=== PATIENT | male | born 1965 | race Caucasian/White ===

== ENCOUNTER 2022-09-11 14:52 | Inpatient (IN) | payer BC, SELFPAY ==
--- NOTE | ~2022-09-11 | CT_ITS ---
EXAMINATION: CT ABDOMEN AND PELVIS WITHOUT CONTRAST CLINICAL INFORMATION: Necrotizing fasciitis, pelvic pain. COMPARISON: None available. TECHNIQUE: Multidetector volumetric imaging was performed from the superior aspect of the liver through the pubic symphysis. Sagittal and coronal reformatted images were obtained on the technologist's workstation. This CT examination was performed using dose optimization techniques as appropriate, variously including the following: *Automated exposure control *Adjustment of mA and/or kV according to patient size (this includes techniques or standardized protocols for targeted exams where dose is matched to indication/reason for exam; i.e. extremities or head) *Use of iterative reconstruction technique DLP: 705 mGy-cm FINDINGS: LUNG BASES: The lung bases are clear. Heart size is normal. LIVER, GALLBLADDER, AND BILIARY TREE: The liver is normal in size, shape, and diffusely hypoattenuated there is 1.5 cm hypodense lesion in segment 4A whether this represent is normal hepatic parenchyma or a lesion is questioned. No intrahepatic biliary ductal dilatation is present. The gallbladder has been surgically removed. PANCREAS: Unremarkable. SPLEEN: Unremarkable. ADRENAL GLANDS: Unremarkable. KIDNEYS AND URETERS: The kidneys are normal in size, shape, and attenuation. There is bilateral prominent kidney pelvis and proximal ureters with no obstructive etiology seen. No perinephric stranding seen. There is no radiopaque calculi. BLADDER: Unremarkable. GASTROINTESTINAL TRACT: There is scattered stool and gas seen throughout the colon without significant distention. Postsurgical changes along the right lower quadrant with patent lumen seen likely involving enterocolic anastomosis. The small bowel loops are normal caliber. Appendix is not seen.. ABDOMINAL WALL: There are two supraumbilical hernias containing fat. A small umbilical hernia containing fat is seen as well. LYMPH NODES: Normal. VASCULAR: Unremarkable. PELVIC VISCERA: The prostate gland is normal. There is moderate bilateral hydroceles. There is mild cellulitis involving bilateral medial thigh and posterior buttocks. No gross ulcerations or abscess seen.. OSSEOUS STRUCTURES: There are compression deformities L2 T11 and T12 vertebra likely old. There are ventral bridging osteophytes lower dorsal spine. CT/CT abdomen pelvis wo IV con IMPRESSION: 1. Moderate bilateral hydroceles. There is mild cellulitis involving bilateral medial thigh and posterior buttocks. No gross ulcerations or abscess seen. 2. Mild constipation without obstruction. Postsurgical changes right lower quadrant with patent lumen likely enterocolic anastomosis. 3. Bilateral prominent kidney pelvis and proximal ureters with no obstructive etiology seen. 4. There are two supraumbilical hernias containing fat and a small umbilical hernia containing fat. 5. Hepatic steatosis and cholecystectomy. Fleischner guidelines were followed.
[2022-09-11 14:59] VITALS: BP 94/51; PULSE 80; RESP 20; TEMP 36.8; O2SAT 98; BMI 23.1
--- NOTE | 2022-09-11 15:00 | ED.GENADULT ---
HPI - General Adult General Chief complaint: Skin/Abscess/Foreign Body Stated complaint: ULCER Time Seen by Provider: 09/11/22 16:07 Source: patient and family Mode of arrival: ambulatory Limitations: no limitations History of Present Illness HPI narrative: 57-year-old male came in for evaluation painful ulceration the top of his penis, patient only past medical history significant for alcohol abuse patient otherwise declined any other medical problem, sexually not active, declined any unprotected sex at least in the last couple months, patient declined any risk for STD. Related Data Home Medications Medication Instructions Recorded Confirmed cyclobenzaprine 10 mg tablet 10 mg PO BEDTIME 09/11/22 09/11/22 ibuprofen 800 mg tablet 800 mg PO TID 09/11/22 09/11/22 lidocaine 5 % topical patch 1 patch topical DAILY 09/11/22 09/11/22 Allergies Allergy/AdvReac Type Severity Reaction Status Date / Time No Known Allergies Allergy Verified 09/11/22 16:54 Review of Systems Review of Systems: All other systems are reviewed and are negative Constitutional: Reports as per HPI and Reports no additional constitutional complaints Eyes: Reports as per HPI and Reports no additional eye complaints Reports system reviewed and no additional complaints, except as documented Cardiovascular: Reports as per HPI and Reports no additional cardiovascular complaints Respiratory: Reports as per HPI and Reports no additional respiratory complaints Gastrointestinal: Reports as per HPI and Reports no additional gastrointestinal complaints Genitourinary: Reports no additional female genitourinary complaints Musculoskeletal: Reports no additional musculoskeletal complaints Skin/Breast: Reports system reviewed and no additional complaints, except as docu Psychiatric: Reports no additional psychiatric complaints Endocrine: Reports no additional endocrine complaints Hematologic/Lymphatic: Reports no additional hematologic/lymphatic complaints Allergic/Immunologic: Reports no additional allergic/immunologic complaints Reports system reviewed and no additional complaints, except as documented and Reports Abnormal speech present [facility] Past Medical History Medical History Alcohol dependence Chronic kidney disease Surgical History (Updated 09/11/22 @ 20:39 by JIGAR De La Torre) S/P bariatric surgery Social History Social History Household Members: Children Household Members Other:: son Housing: Apartment Do you presently have visiting nurse or other home services: No Alcohol intake: current Alcohol intake frequency: 3 or more drinks per day Alcohol type: hard liquor Patient Tobacco Use Status: Current everyday Tobacco user Tobacco use type: Cigarette Cigarettes Per Day: 2 Substance Use Type: Crack/Cocaine Physical Exam ED Vital Signs: Vital Signs - 24 hr 09/11/22 14:59 09/11/22 17:53 09/11/22 20:03 Temperature 98.3 F 97.5 F 97.9 F Pulse Rate 80 62 73 Respiratory Rate 20 16 16 Blood Pressure 94/51 L 122/72 117/72 Pulse Oximetry 98 99 96 Oxygen Delivery Method Room Air Room Air Room Air BMI result Body Mass Index 23.1 Vital signs have been reviewed as appeared to be correct. Blood pressure normal. Heart rate normal. Respiration rate normal. Temperature normal. Oxygen saturation normal. Appearance: Alert. Oriented X3. No acute distress. Head: Normal external exam. Normocephalic. Atraumatic. No Farah signs noted. No raccoon eyes noted Eyes: PERRLA. EOMI. Conjunctiva and sclera normal. Eyelids normal. ENT: TM's Normal. Pharynx normal. Uvula midline. Moist mucous membranes. No trismus noted. No drooling noted. No muffled voice noted. Neck: Normal inspection. Neck supple. FROM. No adenopathy. Thyroid Normal. No meningeal signs. No neck mass noted. CVS: Normal heart rate and rhythm. Heart sound normal. No murmurs noted. Pulses normal throughout. Respiratory: No respiratory distress. Painless inspiration. Breath sounds normal. No wheezes/rales/rhonchi noted. Chest nontender. No accessory muscle usage noted or decreased air movement noted. Abdomen: Soft and nontender. Bowel sounds normal in all 4 quadrants. No distention noted. No organomegaly noted. No visible injury noted. Genital exam: 5 x 4 cm area of foul odor ulcerative lesion on the dorsum of the penis, surrounded by area of erythema on the penis, no urethral discharge. Back: No CVA tenderness. Full range of motion noted. Skin: Skin warm and dry. Normal skin color. Normal skin turgor. No rashes/lesions/lacerations noted. Extremities: No lower extremity edema. Extremities exhibit normal range of motion. Extremities nontender. Neuro: Oriented X 3. Cranial nerve exam: II-XII are grossly intact No motor deficit. No sensory deficit. Reflexes normal. Course Course Course Narrative: RME performed by Leila Hernandez PA-C. Patient is a 57 year old assigned male at presenting to the emergency department with an ulcer on his penis. Labs ordered. Patient placed back in the waiting room pending room availability and results. Reevaluation(s) Reevaluation #1: 57-year-old male from [place] here to visit his family came in for concern of ulcerative painful lesion on the penis for about a week, patient claimed that he is not sexually active currently and STD is extremely unlikely, very mild cellulitic change on the penis and bilateral thigh, LRINEC score is 6/CT showing no free air, making necrotizing fasciitis is likely I discussed the case with Dr. Awan who has things that necrotizing fasciitis is not likely with this patient. Patient received Zosyn, will admit the patient get inpatient General surgery/urology consultation Medications Administered Generic Name Dose Route Start Last Admin Trade Name Freq PRN Reason Stop Dose Admin Cyclobenzaprine HCl 10 mg 09/11/22 21:00 09/11/22 21:17 Cyclobenzaprine Hcl 10 Mg Tablet PO 10 mg BEDTIME VALERIE Administration Cefepime HCl 1 gm/ Sodium 50 mls @ 100 mls/hr 09/11/22 20:30 09/11/22 22:01 Chloride IV Infused Q12H VALERIE Infusion Thiamine HCl 100 mg/ Sodium 101 mls @ 202 mls/hr 09/11/22 20:30 09/11/22 21:29 Chloride IV Infused DAILY VALERIE Infusion Ibuprofen 800 mg 09/11/22 21:00 09/11/22 21:55 Ibuprofen 800 Mg Tablet PO 800 mg TID VALERIE Administration Phenobarbital Sodium 279 mg 09/11/22 23:45 09/11/22 23:51 Phenobarbital Sodium 130 Mg/Ml Vial Im Q3hx2 IM 09/12/22 02:46 279 mg Q3H VALERIE Administration Protocol Sodium Chloride 3 ml 09/12/22 00:00 09/12/22 01:07 0.9 % Sodium Chloride Flush 3 Ml Syringe IVFLUSH Not Given QSHIFT VALERIE Discontinued Medications Generic Name Dose Route Start Last Admin Trade Name Freq PRN Reason Stop Dose Admin Piperacillin Sod/Tazobactam 50 mls @ 100 mls/hr 09/11/22 16:24 09/11/22 17:57 Sod 3.375 gm/ Sodium Chloride IV 09/11/22 16:53 Infused ONCE ONE Infusion Sodium Chloride 2,313.33 mls @ 2,313.33 mls/hr 09/11/22 16:24 09/11/22 18:56 Ns 30 ml/kg infuse over 1 hr (2313.33 ml) 09/11/22 17:23 Infused IV Infusion .Q1H STA Vancomycin HCl 1,500 mg/ 500 mls @ 333.333 mls/hr 09/11/22 20:34 09/11/22 22:01 Sodium Chloride IV 09/11/22 22:03 Not Given ONCE ONE Vancomycin HCl 1,500 mg/ 500 mls @ 333.333 mls/hr 09/11/22 21:45 09/11/22 23:28 Sodium Chloride IV 09/11/22 23:14 Infused ONCE ONE Infusion Morphine Sulfate 2 mg 09/11/22 17:09 09/11/22 17:57 Morphine Sulfate 2 Mg/Ml Cartridge IVPUSH 09/11/22 17:10 2 mg ONCE ONE Administration Protocol Phenobarbital Sodium 373 mg 09/11/22 20:45 09/11/22 20:46 Phenobarbital Sodium 130 Mg/Ml Im Once IM 09/11/22 20:46 373 mg ONCE ONE Administration Protocol Medical Decision Making Differential Diagnosis Differential Diagnoses: The differential diagnosis associated with the presentation includes (STD, syphilis, necrotizing fasciitis, cellulitis, severe sepsis, electrolyte abnormalities, anemia.) Admission/Observation Consideration of admission/observation: Escalation of care including admission/observation considered Consult Healthcare Provider Management of the patient was discussed with: Hospitalist () and Treasury Associate (Dr. Awan) Lab Data MDM Lab Attestation statement: I reviewed the patient's lab results. 09/11/22 15:33 09/11/22 15:34 Labs: Lab Results 09/11/22 09/11/22 09/11/22 Range/Units 15:33 15:33 15:34 WBC 11.0 H (4.8-10.8) X10*3/uL RBC 2.55 L (4.60-5.80) X10*6/uL Hgb 7.7 L (14.0-18.0) g/dl Hct 21.2 L (42.0-52.0) % MCV 83.1 (80.0-98.0) fL MCH 30.2 (27.0-33.0) pg MCHC 36.3 H (31.0-36.0) g/dl RDW 16.1 H (11.0-16.0) % Plt Count 138 L (160-400) X10*3/uL MPV 10.7 (9.4-12.4) fL Immature Gran % (Auto) 0.7 H (0.0-0.4) % Neut % (Auto) 79.8 H (45-73) % Lymph % (Auto) 7.3 L (20-40) % [place] % (Auto) 11.1 H (2-11) % Eos % (Auto) 0.5 (0-4) % Baso % (Auto) 0.6 (0-2) % Lymph # (Auto) 0.8 L (1.2-4.9) X10*3/uL [place] # (Auto) 1.2 (0.1-1.2) X10*3/uL Eos # (Auto) 0.1 (0.0-0.4) X10*3/uL Baso # (Auto) 0.1 (0.0-0.2) X10*3/uL Abs Immat Gran (auto) 0.08 H (0.00-0.03) X10*3/uL Absolute Neuts (auto) 8.8 H (2.0-8.3) x10*3/uL Absolute Nucleated RBC 0.000 (0.0-0.012) X10*3/uL Nucleated RBC % (auto) 0.0 (0.0-0.2) /100WBC ESR 81 H (0-15) MM/HR Sodium 131 L (135-145) mmol/L Potassium 3.5 (3.3-5.1) mmol/L Chloride 103 (96-108) mmol/L Carbon Dioxide 15 L (22-29) mmol/L Anion Gap 17 (12-20) BUN 52 H (9-16) mg/dL Creatinine 3.33 H (0.5-1.4) mg/dL Estim Creat Clear Calc 27.3 Estimated GFR 19 Random Glucose 77 (60-115) mg/dL Lactic Acid (0.5-2.0) mmol/L Calcium 6.9 L (8.4-10.2) mg/dL Magnesium 1.6 (1.6-2.6) mg/dL Iron TIBC % Saturation Unsat Iron Binding Ferritin Total Bilirubin 1.0 (0.0-1.0) mg/dL AST 52 H (5-37) U/L ALT 25 (0-40) U/L Alkaline Phosphatase 217 H (39-117) U/L C-Reactive Protein 12.28 H (< or = 0.50) mg/dL Total Protein 5.8 L (6.5-8.0) g/dL Albumin 2.1 L (3.5-5.0) g/dL Vitamin B12 (200-900) pg/mL Folate (> or = 4.0) ng/mL Urine Color Urine Appearance Urine pH (5.0-9.0) Ur Specific [place] (1.005-1.025) Urine Protein (Neg-Trace) mg/dL Urine Glucose (UA) (Negative) mg/dL Urine Ketones (Negative) mg/dL Urine Blood (Negative) Urine Nitrite (Negative) Ur Leukocyte Esterase (Negative) Urine RBC (0-2) /HPF Urine WBC (0-5) /HPF Ur Squamous Epith Cells (0-2) /HPF Urine Bacteria (None Seen) Hyaline Casts (0-2) /LPF Ur Random Sodium mmol/L Urine Creatinine mg/dL Urine Opiates Screen (Not Detect) Urine Fentanyl Screen (Not Detect) Ur Barbiturates Screen (Not Detect) Ur Phencyclidine Scrn (Not Detect) Ur Amphetamines Screen (Not Detect) U Benzodiazepines Scrn (Not Detect) Urine Cocaine Screen (Not Detect) U Marijuana (THC) Screen (Not Detect) Ethyl Alcohol 87 mg/dL 09/11/22 09/11/22 09/11/22 Range/Units 16:50 18:55 18:55 WBC (4.8-10.8) X10*3/uL RBC (4.60-5.80) X10*6/uL Hgb (14.0-18.0) g/dl Hct (42.0-52.0) % MCV (80.0-98.0) fL MCH (27.0-33.0) pg MCHC (31.0-36.0) g/dl RDW (11.0-16.0) % Plt Count (160-400) X10*3/uL MPV (9.4-12.4) fL Immature Gran % (Auto) (0.0-0.4) % Neut % (Auto) (45-73) % Lymph % (Auto) (20-40) % [place] % (Auto) (2-11) % Eos % (Auto) (0-4) % Baso % (Auto) (0-2) % Lymph # (Auto) (1.2-4.9) X10*3/uL [place] # (Auto) (0.1-1.2) X10*3/uL Eos # (Auto) (0.0-0.4) X10*3/uL Baso # (Auto) (0.0-0.2) X10*3/uL Abs Immat Gran (auto) (0.00-0.03) X10*3/uL Absolute Neuts (auto) (2.0-8.3) x10*3/uL Absolute Nucleated RBC (0.0-0.012) X10*3/uL Nucleated RBC % (auto) (0.0-0.2) /100WBC ESR (0-15) MM/HR Sodium (135-145) mmol/L Potassium (3.3-5.1) mmol/L Chloride (96-108) mmol/L Carbon Dioxide (22-29) mmol/L Anion Gap (12-20) BUN (9-16) mg/dL Creatinine (0.5-1.4) mg/dL Estim Creat Clear Calc Estimated GFR Random Glucose (60-115) mg/dL Lactic Acid 1.8 (0.5-2.0) mmol/L Calcium (8.4-10.2) mg/dL Magnesium (1.6-2.6) mg/dL Iron TIBC % Saturation Unsat Iron Binding Ferritin Total Bilirubin (0.0-1.0) mg/dL AST (5-37) U/L ALT (0-40) U/L Alkaline Phosphatase (39-117) U/L C-Reactive Protein (< or = 0.50) mg/dL Total Protein (6.5-8.0) g/dL Albumin (3.5-5.0) g/dL Vitamin B12 (200-900) pg/mL Folate (> or = 4.0) ng/mL Urine Color Yellow Urine Appearance Clear Urine pH 5.5 (5.0-9.0) Ur Specific [place] <= 1.005 (1.005-1.025) Urine Protein Negative (Neg-Trace) mg/dL Urine Glucose (UA) Negative (Negative) mg/dL Urine Ketones Negative (Negative) mg/dL Urine Blood Small (1+) H (Negative) Urine Nitrite Negative (Negative) Ur Leukocyte Esterase Large (3+) H (Negative) Urine RBC 0-2 (0-2) /HPF Urine WBC 21-50 H (0-5) /HPF Ur Squamous Epith Cells 0-2 (0-2) /HPF Urine Bacteria None Seen (None Seen) Hyaline Casts 0-2 (0-2) /LPF Ur Random Sodium mmol/L Urine Creatinine mg/dL Urine Opiates Screen Not Detected (Not Detect) Urine Fentanyl Screen Not Detected (Not Detect) Ur Barbiturates Screen Not Detected (Not Detect) Ur Phencyclidine Scrn Not Detected (Not Detect) Ur Amphetamines Screen Not Detected (Not Detect) U Benzodiazepines Scrn Not Detected (Not Detect) Urine Cocaine Screen POSITIVE H (Not Detect) U Marijuana (THC) Screen Not Detected (Not Detect) Ethyl Alcohol mg/dL 09/11/22 09/11/22 09/11/22 Range/Units 18:55 19:43 19:43 WBC (4.8-10.8) X10*3/uL RBC (4.60-5.80) X10*6/uL Hgb (14.0-18.0) g/dl Hct (42.0-52.0) % MCV (80.0-98.0) fL MCH (27.0-33.0) pg MCHC (31.0-36.0) g/dl RDW (11.0-16.0) % Plt Count (160-400) X10*3/uL MPV (9.4-12.4) fL Immature Gran % (Auto) (0.0-0.4) % Neut % (Auto) (45-73) % Lymph % (Auto) (20-40) % [place] % (Auto) (2-11) % Eos % (Auto) (0-4) % Baso % (Auto) (0-2) % Lymph # (Auto) (1.2-4.9) X10*3/uL [place] # (Auto) (0.1-1.2) X10*3/uL Eos # (Auto) (0.0-0.4) X10*3/uL Baso # (Auto) (0.0-0.2) X10*3/uL Abs Immat Gran (auto) (0.00-0.03) X10*3/uL Absolute Neuts (auto) (2.0-8.3) x10*3/uL Absolute Nucleated RBC (0.0-0.012) X10*3/uL Nucleated RBC % (auto) (0.0-0.2) /100WBC ESR (0-15) MM/HR Sodium (135-145) mmol/L Potassium (3.3-5.1) mmol/L Chloride (96-108) mmol/L Carbon Dioxide (22-29) mmol/L Anion Gap (12-20) BUN (9-16) mg/dL Creatinine (0.5-1.4) mg/dL Estim Creat Clear Calc Estimated GFR Random Glucose (60-115) mg/dL Lactic Acid (0.5-2.0) mmol/L Calcium (8.4-10.2) mg/dL Magnesium (1.6-2.6) mg/dL Iron Cancelled TIBC Cancelled % Saturation Cancelled Unsat Iron Binding Cancelled Ferritin Cancelled Total Bilirubin (0.0-1.0) mg/dL AST (5-37) U/L ALT (0-40) U/L Alkaline Phosphatase (39-117) U/L C-Reactive Protein 11.13 H (< or = 0.50) mg/dL Total Protein (6.5-8.0) g/dL Albumin (3.5-5.0) g/dL Vitamin B12 > 2000 H (200-900) pg/mL Folate 4.5 (> or = 4.0) ng/mL Urine Color Urine Appearance Urine pH (5.0-9.0) Ur Specific [place] (1.005-1.025) Urine Protein (Neg-Trace) mg/dL Urine Glucose (UA) (Negative) mg/dL Urine Ketones (Negative) mg/dL Urine Blood (Negative) Urine Nitrite (Negative) Ur Leukocyte Esterase (Negative) Urine RBC (0-2) /HPF Urine WBC (0-5) /HPF Ur Squamous Epith Cells (0-2) /HPF Urine Bacteria (None Seen) Hyaline Casts (0-2) /LPF Ur Random Sodium 53.0 mmol/L Urine Creatinine 22.11 mg/dL Urine Opiates Screen (Not Detect) Urine Fentanyl Screen (Not Detect) Ur Barbiturates Screen (Not Detect) Ur Phencyclidine Scrn (Not Detect) Ur Amphetamines Screen (Not Detect) U Benzodiazepines Scrn (Not Detect) Urine Cocaine Screen (Not Detect) U Marijuana (THC) Screen (Not Detect) Ethyl Alcohol mg/dL Independent Interpretation I performed an independent interpretation of an: CT Scan (Abdomen pelvis:1. Moderate bilateral hydroceles. There is mild cellulitis involving bilateral medial thigh and posterior buttocks. No gross ulcerations or abscess seen. 2. Mild constipation without obstruction. 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 Discharge Plan Discharge Clinical Impression: Cellulitis, Acute kidney injury, Urinary tract infection, Penile lesion Patient Disposition: Admitted As Inpatient Interventions: Admission Worksheet (ED) Last Done: 09/11/22 23:04 Discharge Date/Time: 09/11/22 23:27
[2022-09-11 15:38] LABS: MANUAL DIFF FLAG NO
[2022-09-11 15:40] LABS: Basophils Absolute Auto 0.1 X10*3/uL (0.0-0.2); Basophils Percent Auto 0.6 % (0-2); Eosinophils Absolute Auto 0.1 X10*3/uL (0.0-0.4); Eosinophils Percent Auto 0.5 % (0-4); Hematocrit 21.2 % (42.0-52.0); Hemoglobin 7.7 g/dl (14.0-18.0); Imm Gran Abs Auto 0.08 X10*3/uL (0.00-0.03); Imm Gran Pct Auto 0.7 % (0.0-0.4); Lymphocytes Absolute Auto 0.8 X10*3/uL (1.2-4.9); Lymphocytes Percent Auto 7.3 % (20-40); Mean Corpuscular HGB Conc 36.3 g/dl (31.0-36.0); Mean Corpuscular Hemoglobin 30.2 pg (27.0-33.0); Mean Corpuscular Volume 83.1 fL (80.0-98.0); Mean Platelet Volume 10.7 fL (9.4-12.4); Monocytes Absolute Auto 1.2 X10*3/uL (0.1-1.2); Monocytes Percent Auto 11.1 % (2-11); Neutrophils Absolute Auto 8.8 x10*3/uL (2.0-8.3); Neutrophils Percent Auto 79.8 % (45-73); Platelet Count 138 X10*3/uL (160-400); Red Blood Count 2.55 X10*6/uL (4.60-5.80); Red Cell Distribution Width 16.1 % (11.0-16.0)
[2022-09-11 15:58] LABS: Alanine Aminotransferase 25 U/L (0-40); Albumin Level 2.1 g/dL (3.5-5.0); Alkaline Phosphatase 217 U/L (39-117); Anion Gap 17 (12-20); Aspartate Amino Transferase 52 U/L (5-37); Blood Urea Nitrogen 52 mg/dL (9-16); C Reactive Protein 12.28 mg/dL (< or = 0.50); Calcium 6.9 mg/dL (8.4-10.2); Carbon Dioxide 15 mmol/L (22-29); Chloride 103 mmol/L (96-108); Creatinine Clr Calc Pharmacy 27.3; Estimated Glomerular Filt Rate 19; Glucose Random 77 mg/dL (60-115); Magnesium 1.6 mg/dL (1.6-2.6); Potassium 3.5 mmol/L (3.3-5.1); Sodium 131 mmol/L (135-145); Total Protein 5.8 g/dL (6.5-8.0)
[2022-09-11 16:25] LABS: Erythrocyte Sedimentation Rate 81 MM/HR (0-15)
[2022-09-11] MEDS: 0.9 % Sodium Chloride 2,313.33 ML 2313.33 ML IV (16:54)
[2022-09-11] MEDS: Piperacillin Sodium/Tazobactam 3.375 GM in 0.9 % Sodium Chloride 50 ML IV (16:54)
[2022-09-11 17:05] LABS: Lactic Acid 1.8 mmol/L (0.5-2.0)
[2022-09-11 17:27] LABS: Ethanol 87 mg/dL
--- NOTE | 2022-09-11 17:45 | PHA.MEDREC ---
Pharmacy Consult ? Medication Reconciliation Pharmacy has completed the medication reconciliation. spoke with patient's family. They are not sure what he is taking at home everyday since he is only visiting from [place], however the sister mentioned OTC items such as iron, a multivitamin, and omeprazole but she does not know dosages and frequency. I went off of claim history for the prescription medications.
[2022-09-11 17:53] VITALS: BP 122/72; PULSE 62; RESP 16; TEMP 36.4; O2SAT 99
[2022-09-11] MEDS: Morphine Sulfate 2 MG/ML CARTRIDGE IVPUSH (17:57)
[2022-09-11 19:04] LABS: Appearance Urine Clear; Color Urine Yellow; Glucose Urine UA Negative (Negative); Leukocyte Esterase Urine Large (3+) (Negative); Nitrite Urine Negative (Negative); PH 5.5 (5.0-9.0); Specific Gravity - Urine <= 1.005 (1.005-1.025); UMIC TRIGGER UACC YES; Urine Blood Small (1+) (Negative); Urine Ketones Negative (Negative); Urine Protein Negative (Neg-Trace)
--- NOTE | 2022-09-11 19:30 | PM.IMHP ---
History of Present Illness Date of Service: 09/11/22 Attending physician on admission: Johanna Correa Chief Complaint: Penile lesion 57-year-old male with history of alcohol dependence and chronic kidney disease, unspecified stage presents to the ED with his sister for evaluation of a penile lesion that has been present for about 2 weeks. Describes a painful stinging sensation around the site but no other pain. There has also been purulent discharge. No fevers, chills, dysuria, hematuria, abdominal pain, other groin pain. He states his last sexual encounter was 1 month ago and was protected. He denies any recent history of unprotected sex. No discharge from the urethral meatus. On arrival, patient is afebrile, vitals within normal limits. There is a very mild leukocytosis of 11.1 with slight left shift. Platelets 138. Creatinine 3.33, BUN 52. Sodium 131, potassium 3.5, chloride 103, CO2 15, calcium 6.9 (corrected 7.9), AST 52, ALT 25, total bilirubin 1.0, alkaline phosphatase 217. CRP 11.13, ESR 81. Urine tox screen positive for cocaine. Gonorrhea, chlamydia, trip anemia antibodies pending. CT abdomen/pelvis showing moderate bilateral hydroceles. Mild cellulitis involving bilateral medial thigh and posterior buttocks but no gross ulcerations or abscess seen. There is also mild constipation. There is bilateral prominent kidney pelvis and proximal ureters without obstructive etiology. In the ED, has been treated with IV NS, 2 mg morphine, and IV Zosyn. He does drink alcohol on a daily basis throughout the day. Typically between 7-8 shots but sister reports it is more than this. Last drink just before arrival. Review of Systems Review of Systems: General: No fevers, malaise, unintentional weight loss HEENT: No blurred vision, diplopia. No sore throat, nasal congestion, rhinorrhea, sinus pain, ear pain Cardiovascular: No chest pain, palpitations, or leg edema Respiratory: No shortness of breath, wheezing, cough GI: No abdominal pain, nausea, vomiting, diarrhea, constipation, melena, hematochezia : +penile lesion. No dysuria, hematuria, increased urinary frequency, decreased urinary output MSK: No myalgia, back pain Neuro: No headaches, weakness, paresthesias Skin: No rashes or lesions PMFSH Medical History Alcohol dependence Chronic kidney disease Surgical History (Updated 09/11/22 @ 20:39 by JIGAR De La Torre) S/P bariatric surgery Social History Alcohol intake: current Alcohol intake frequency: 3 or more drinks per day Alcohol type: hard liquor Smoked in Last 30 Days: Yes Use of substances other than those prescribed or required for medical reasons: Yes Substance Use Type: Crack/Cocaine Substance Use Frequency: Socially Advance Directives: No Advance Directives Information Provided: Yes Meds Allergies Allergy/AdvReac Type Severity Reaction Status Date / Time No Known Allergies Allergy Verified 09/11/22 16:54 Active Medications: Current Medications Pharmacy Consult (Consult Rx Perform Med Rec) 1 each MISCELLANE ONCE PRN PRN Reason: Consult order Home Medications Medication Instructions Recorded Confirmed Last Taken Type cyclobenzaprine 10 mg tablet 10 mg PO BEDTIME 09/11/22 09/11/22 Unknown History ibuprofen 800 mg tablet 800 mg PO TID 09/11/22 09/11/22 Unknown History lidocaine 5 % topical patch 1 patch topical DAILY 09/11/22 09/11/22 Unknown History Physical Exam Vital Signs and Narrative: Vital Signs: Last Vital Signs Temp 97.5 F 09/11/22 17:53 Pulse 62 09/11/22 17:53 Resp 16 09/11/22 17:53 BP 122/72 09/11/22 17:53 Pulse Ox 99 09/11/22 17:53 O2 Del Method Room Air 09/11/22 17:53 BMI result Body Mass Index 23.1 Constitutional - Awake and weak appearing, pale, No apparent distress Eyes - PERRLA, EOMI Cardiovascular - S1S2, RRR, No edema Respiratory - Normal lung expansion, Normal respiratory effort, No respiratory distress, CTA bilaterally Gastrointestinal - NT / ND; +BS; No rebound or guarding - No CVA tenderness. Extremities - no calf tenderness bilaterally, no swelling Musculoskeletal - Normal inspection, normal ROM Skin - Warm/Dry. 3cm x 2.5cm foul smelling ulceration of the dorsal aspect of the penis with slough Neurological - Alert & oriented x3, CN II-XII in tact, 5/5 strength BUE and BLE Psychological - Appropriate affect Results Labs 09/11/22 15:33 09/11/22 15:34 Labs: Laboratory Results - last 24 hr 09/11/22 09/11/22 09/11/22 15:33 15:33 15:34 MCV 83.1 MCH 30.2 MCHC 36.3 H RDW 16.1 H Plt Count 138 L MPV 10.7 Immature Gran % (Auto) 0.7 H Neut % (Auto) 79.8 H Lymph % (Auto) 7.3 L [place] % (Auto) 11.1 H Eos % (Auto) 0.5 Baso % (Auto) 0.6 Lymph # (Auto) 0.8 L [place] # (Auto) 1.2 Eos # (Auto) 0.1 Baso # (Auto) 0.1 Abs Immat Gran (auto) 0.08 H Absolute Neuts (auto) 8.8 H Absolute Nucleated RBC 0.000 Nucleated RBC % (auto) 0.0 ESR 81 H Anion Gap 17 Estim Creat Clear Calc 27.3 Estimated GFR 19 Random Glucose 77 Lactic Acid Calcium 6.9 L Magnesium 1.6 Total Bilirubin 1.0 AST 52 H ALT 25 Alkaline Phosphatase 217 H C-Reactive Protein 12.28 H Total Protein 5.8 L Albumin 2.1 L Urine Color Urine Appearance Urine pH Ur Specific [place] Urine Protein Urine Glucose (UA) Urine Ketones Urine Blood Urine Nitrite Ur Leukocyte Esterase Ethyl Alcohol 87 09/11/22 09/11/22 16:50 18:55 MCV MCH MCHC RDW Plt Count MPV Immature Gran % (Auto) Neut % (Auto) Lymph % (Auto) [place] % (Auto) Eos % (Auto) Baso % (Auto) Lymph # (Auto) [place] # (Auto) Eos # (Auto) Baso # (Auto) Abs Immat Gran (auto) Absolute Neuts (auto) Absolute Nucleated RBC Nucleated RBC % (auto) ESR Anion Gap Estim Creat Clear Calc Estimated GFR Random Glucose Lactic Acid 1.8 Calcium Magnesium Total Bilirubin AST ALT Alkaline Phosphatase C-Reactive Protein Total Protein Albumin Urine Color Yellow Urine Appearance Clear Urine pH 5.5 Ur Specific [place] <= 1.005 Urine Protein Negative Urine Glucose (UA) Negative Urine Ketones Negative Urine Blood Small (1+) H Urine Nitrite Negative Ur Leukocyte Esterase Large (3+) H Ethyl Alcohol Imaging Radiologist's Impressions: Impressions Abdomen/Pelvis CT 09/11/22 16:45 IMPRESSION: 1. Moderate bilateral hydroceles. There is mild cellulitis involving bilateral medial thigh and posterior buttocks. No gross ulcerations or abscess seen. 2. Mild constipation without obstruction. Postsurgical changes right lower quadrant with patent lumen likely enterocolic anastomosis. 3. Bilateral prominent kidney pelvis and proximal ureters with no obstructive etiology seen. 4. There are two supraumbilical hernias containing fat and a small umbilical hernia containing fat. 5. Hepatic steatosis and cholecystectomy. Fleischner guidelines were followed. Assessment and Plan (1) Cellulitis: Status: Acute (2) Penile lesion: Status: Acute Plan 57-year-old male with history of alcohol dependence and chronic kidney disease, unspecified stage admitted for necrotic ulceration of penis with cellulitis. #Necrotic stage 2 ulceration of the penis with cellulitis -CRP 12, ESR 81 -Wound culture pending -UA with 3+ leuks, negative bacteria. Pt asymptomatic but UC pending -IV cefepime and vanco for empiric coverage -Appreciate general surgery input -Mild leukocytosis with left shift but VSS. NO sepsis -Follow CBC, cultures #Acute on chronic kidney disease though baseline is unknown -urine studies pending -Received 2300ml IV NS in ED -Follow CBC #Alcohol dependence with acute intoxication at risk for severe wtihdrawal -Phenobarb per protocol -Monitor on CIWA -Addiction medicine consult -IV thiamine and folic acid #Hyponatremia- unspecified chronicity -likely r/t etoh abuse -follow bmp #Normocytic anemia- likely chronic in setting of chronic disease -H/H above transfusion threshold. -Follow H/H closely DVT prophylaxis- SCPs Full code Pt requires inpt stay at least 2 midnights for management of necrotic ulcer of penis with cellulitis. Time Spent With Patient Time: Total time managing care of this patient today ____ minutes. Quality Stroke Does the patient have a stroke diagnosis?: No VTE Prior VTE?: No VTE Risk Level:: Medical - moderate - high VTE Device Contraindication: N/A - Device Ordered VTE Drug Contraindication: Treatment Not Indicated
[2022-09-11 19:31] LABS: Amphetamine Screen Urine Not Detected (Not Detect); Barbiturates, Urine Not Detected (Not Detect); Benzodiazepines Screen Urine Not Detected (Not Detect); Cannabinoid Screen Urine Not Detected (Not Detect); Cocaine Screen Urine POSITIVE (Not Detect); Fentanyl, urine Not Detected (Not Detect); Opiate Screen Urine Not Detected (Not Detect); Phencyclidine Screen Urine Not Detected (Not Detect)
[2022-09-11 19:34] LABS: Bacteria Urine None Seen (None Seen); Hyaline Casts Urine 0-2 /LPF (0-2); RBC Urine 0-2 /HPF (0-2); Squamous Epithelial Cell Urine 0-2 /HPF (0-2); UACC Culture Trigger YES; WBC Urine 21-50 /HPF (0-5)
--- NOTE | 2022-09-11 19:58 | PC.NURSE ---
HOSPITALIST AT BEDSIDE. DISCUSSED HOLDING OFF ON CLEANING PENILE WOUND, AWAITING RECOMMENDATIONS FROM SURGEON. NPO FOR NOW, PT AWARE. STATES PAIN IS CURRENTLY MANAGEABLE.
[2022-09-11 20:03] VITALS: BP 117/72; PULSE 73; RESP 16; TEMP 36.6; O2SAT 96
[2022-09-11 20:05] LABS: C Reactive Protein 11.13 mg/dL (< or = 0.50)
[2022-09-11] MEDS: PHENobarbitaL sodium 130 MG/ML IM ONCE 373 MG IM (20:46)
[2022-09-11] MEDS: Thiamine HCL 100 MG in 0.9 % Sodium Chloride 100 ML 202 MG IV (20:48)
[2022-09-11] MEDS: Cyclobenzaprine HCl 10 MG TABLET PO (21:17)
[2022-09-11] MEDS: cefEPime HCl 1 GM in 0.9 % Sodium Chloride 50 ML IV (21:17)
[2022-09-11] MEDS: vancomycin HCL 1,500 MG in 0.9 % Sodium Chloride 500 ML 333.33 MG IV (21:54)
[2022-09-11] MEDS: Ibuprofen 800 MG TABLET PO (21:55)
--- NOTE | 2022-09-11 22:04 | PHA.PROG ---
Admission Date/Time: September 11, 2022 20:25 Indication: skin/structure infection Weight in k.111 kg Adjusted body weight in K.404 Bryson body weight in K.6 Obesity Dosing Indication % IBW: Serum Creatinine - Last 168 Hours 09/11/22 15:34 Creatinine 3.33 H Estimated CrCl and GFR - Last 168 Hours 09/11/22 15:34 Estim Creat Clear Calc 27.3 Estimated GFR 19 Vancomycin Loading Dose: 1500 Current Vancomycin Dosing Regimen:750 q24 Vancomycin Monitoring using AUC goal of 400 - 600 range with trough as surrogate marker:expected auc 402 after second dose Date and Time for next Vancomycin Level to be drawn:09/12 @1999 Pharmacist Comments on Vancomycin Plan:pt has very poor renal function and will get level before 3rd dose to assess dosing and safety. Creatinine today is 3.33. Pt is poor historian and isn't sure when discussing with md the level or length of time they have had kidney injury/kidney disease. Will very closely monitor due to severity of infection needing antibiotic treatment but the danger of further injuring the kidneys. Vancomycin dosing will take advantage of ensembli as a clinical decision support tool that uses Bayesian modeling to calculate individual patient's pharmacokinetic parameters and forecast the patient's drug concentration time course with the target goal AUC 24 range of 400 - 600 mg/L/hr.
[2022-09-11 22:09] LABS: Folate 4.5 ng/mL (> or = 4.0); Vitamin B12 > 2000 pg/mL (200-900)
--- NOTE | 2022-09-11 22:45 | PC.NURSE ---
NO RESPONSE WHEN ATTEMPTING TO CALL FOR REPORT.
[2022-09-11 23:20] LABS: Creatinine Urine 22.11 mg/dL
[2022-09-11 23:34] VITALS: BP 107/65; PULSE 74; RESP 15; TEMP 36.6; O2SAT 99
[2022-09-11] MEDS: PHENobarbitaL sodium 130 MG/ML VIAL IM Q3Hx2 279 MG IM (23:51)
[2022-09-11 23:57] VITALS: BMI 26.9
[2022-09-12 02:26] LABS: CT PCR NOT DETECTED (Not Detect.); NG PCR NOT DETECTED (Not Detect.)
[2022-09-12] MEDS: PHENobarbitaL sodium 130 MG/ML VIAL IM Q3Hx2 279 MG IM (02:57)
[2022-09-12 04:00] VITALS: BP 112/68; PULSE 62; RESP 16; TEMP 36.2; O2SAT 96
[2022-09-12 06:20] LABS: MANUAL DIFF FLAG NO
[2022-09-12 06:38] LABS: Basophils Absolute Auto 0.1 X10*3/uL (0.0-0.2); Basophils Percent Auto 0.8 % (0-2); Eosinophils Absolute Auto 0.1 X10*3/uL (0.0-0.4); Eosinophils Percent Auto 0.7 % (0-4); Hemoglobin 7.3 g/dl (14.0-18.0); Imm Gran Abs Auto 0.12 X10*3/uL (0.00-0.03); Imm Gran Pct Auto 1.4 % (0.0-0.4); Lymphocytes Absolute Auto 0.7 X10*3/uL (1.2-4.9); Mean Corpuscular HGB Conc 36.1 g/dl (31.0-36.0); Mean Corpuscular Hemoglobin 30.2 pg (27.0-33.0); Mean Corpuscular Volume 83.5 fL (80.0-98.0); Mean Platelet Volume 11.1 fL (9.4-12.4); Monocytes Absolute Auto 0.9 X10*3/uL (0.1-1.2); Monocytes Percent Auto 10.1 % (2-11); Neutrophils Absolute Auto 6.7 x10*3/uL (2.0-8.3); Platelet Count 129 X10*3/uL (160-400); Red Blood Count 2.42 X10*6/uL (4.60-5.80); White Blood Count 8.5 X10*3/uL (4.8-10.8)
[2022-09-12 06:45] LABS: Hematocrit 20.2 % (42.0-52.0)
[2022-09-12 06:52] LABS: Anion Gap 14 (12-20); Blood Urea Nitrogen 45 mg/dL (9-16); Calcium 6.5 mg/dL (8.4-10.2); Carbon Dioxide 16 mmol/L (22-29); Chloride 112 mmol/L (96-108); Creatinine Clr Calc Pharmacy 36.9; Estimated Glomerular Filt Rate 27; Glucose Random 72 mg/dL (60-115); Potassium 3.2 mmol/L (3.3-5.1); Sodium 139 mmol/L (135-145)
[2022-09-12 08:00] VITALS: BP 107/60; PULSE 58; RESP 18; TEMP 36.2; O2SAT 97
--- NOTE | 2022-09-12 08:25 | P.CONGS_ITS ---
History of Present Illness Consult details Consult date: 09/12/22 Requesting physician: Sharif Suarez Narrative: 57-year-old male patient recently from [place] presenting to the emergency department by family for evaluation of a penile lesion which is been present for approximately 1-2 weeks. Painful ulcer is been identified with associated purulent discharge from the ulcer. His last sexual encounter was 1 month ago and was protected. He denies a history of STDs. Admitting laboratories revealed WBC of 11.1. CT abdomen and pelvis reveals evidence of cellulitis, bilateral hydroceles, bilateral inguinal lymphadenopathy but no evidence of subcutaneous air or fluid collections to indicate Calista's gangrene. Patient has an alcohol history and tox screen was positive for cocaine. Gonorrhea and chlamydia screens were negative. Trichomonas is pending. Review of Systems Review of Systems: Yes Unobtainable due to mental condition [facility] Past Medical History Medical History Alcohol dependence Chronic kidney disease Surgical History Surgical History (Updated 09/11/22 @ 20:39 by JIGAR De La Torre) S/P bariatric surgery Social History Social History Household Members: Children Household Members Other:: son Housing: Apartment Do you presently have visiting nurse or other home services: No Alcohol intake: current Alcohol intake frequency: 3 or more drinks per day Alcohol type: hard liquor Patient Tobacco Use Status: Current everyday Tobacco user Tobacco use type: Cigarette Cigarettes Per Day: 2 Substance Use Type: Crack/Cocaine Meds Allergies Allergy/AdvReac Type Severity Reaction Status Date / Time No Known Allergies Allergy Verified 09/11/22 16:54 Active Medications: Current Medications Acetaminophen (Acetaminophen 325 Mg Tablet) 650 mg PO Q6H PRN PRN Reason: Pain, Mild (Pain Scale 1-3) Cyclobenzaprine HCl (Cyclobenzaprine Hcl 10 Mg Tablet) 10 mg PO BEDTIME VALERIE Last Admin: 09/11/22 21:17 Dose: 10 mg Folic Acid (Folic Acid 1 Mg Tablet) 1 mg PO DAILY VALERIE Cefepime HCl 1 gm/ Sodium (Chloride) 50 mls @ 100 mls/hr IV Q12H VALERIE Last Infusion: 09/11/22 22:01 Dose: Infused Thiamine HCl 100 mg/ Sodium (Chloride) 101 mls @ 202 mls/hr IV DAILY [facility] Last Infusion: 09/11/22 21:29 Dose: Infused Vancomycin HCl 750 mg/ Sodium (Chloride) 265 mls @ 265 mls/hr IV Q12H [facility] Ibuprofen (Ibuprofen 800 Mg Tablet) 800 mg PO TID [facility] Last Admin: 09/11/22 21:55 Dose: 800 mg Lidocaine (Lidocaine 4 % Patch Adh..Patch) 1 patch TRANSDERMA DAILY [facility] Melatonin (Melatonin 3 Mg Tablet) 6 mg PO BEDTIME PRN PRN Reason: Insomnia Ondansetron HCl (Ondansetron Hcl 4 Mg/2 Ml Vial) 4 mg IVPUSH Q8H PRN PRN Reason: Nausea and Vomiting Pharmacy Consult (Consult Rx Perform Med Rec) 1 each MISCELLANE ONCE PRN PRN Reason: Consult order Pharmacy Consult (Consult Rx Etoh Phenob Im/Po) 1 each MISCELLANE ONCE PRN; Protocol PRN Reason: Consult order Pharmacy Consult (Consult Rx Vancomycin Dosing) 1 each MISCELLANE DAILY PRN PRN Reason: Consult order Phenobarbital (Phenobarbital 30 Mg Tablet) 60 mg PO BID [facility]; Protocol Stop: 09/13/22 21:01 Phenobarbital (Phenobarbital 30 Mg Tablet) 30 mg PO BID [facility]; Protocol Stop: 09/15/22 21:01 Phenobarbital (Phenobarbital 30 Mg Tablet) 30 mg PO DAILY [facility]; Protocol Stop: 09/17/22 09:01 Sodium Chloride (0.9 % Sodium Chloride Flush 3 Ml Syringe) 3 ml IVFLUSH QSHIFT [facility] Last Admin: 09/12/22 01:07 Dose: Not Given Home Medications Medication Instructions Recorded Confirmed Last Taken Type cyclobenzaprine 10 mg tablet 10 mg PO BEDTIME 09/11/22 09/11/22 Unknown History ibuprofen 800 mg tablet 800 mg PO TID 09/11/22 09/11/22 Unknown History lidocaine 5 % topical patch 1 patch topical DAILY 09/11/22 09/11/22 Unknown History Physical Exam Vital Signs: Vital Signs: Last Vital Signs Temp 97.2 F 09/12/22 08:00 Pulse 58 09/12/22 08:00 Resp 18 09/12/22 08:00 BP 107/60 09/12/22 08:00 Pulse Ox 97 09/12/22 08:00 O2 Del Method Room Air 09/12/22 08:00 BMI result Body Mass Index 26.9 Const: General: intoxicated appearing and lethargic Orientation/conscio usness: lethargic Eyes: Sclerae: sclerae normal Resp: Effort & Inspection: normal respiratory effort, no audible wheezes, no cough and no respiratory distress GI: Inspection: Yes normal to inspection Palpation (GI): Soft to palpation, nontender, no guarding and not rigid Percussion: Yes normal to percussion : Other: Large ulceration over anterior surface of the penis with exposed meatus. Small amount of purulent discharge noted on surface but no underlying abscess appreciated. Bilateral reactive inguinal lymphadenopathy palpable. Male genitals images: 1. site of ulceration in this uncircumcised penis Skin: General skin exam: no rashes or lesions noted Extrem: General: Yes normal to inspection Results Labs 09/12/22 06:15 09/12/22 06:15 Labs: Abnormal lab results 09/11/22 09/11/22 09/11/22 Range/Units 15:33 15:33 15:34 WBC 11.0 H (4.8-10.8) X10*3/uL RBC 2.55 L (4.60-5.80) X10*6/uL Hgb 7.7 L (14.0-18.0) g/dl Hct 21.2 L (42.0-52.0) % MCHC 36.3 H (31.0-36.0) g/dl RDW 16.1 H (11.0-16.0) % Plt Count 138 L (160-400) X10*3/uL Immature Gran % (Auto) 0.7 H (0.0-0.4) % Neut % (Auto) 79.8 H (45-73) % Lymph % (Auto) 7.3 L (20-40) % [place] % (Auto) 11.1 H (2-11) % Lymph # (Auto) 0.8 L (1.2-4.9) X10*3/uL Abs Immat Gran (auto) 0.08 H (0.00-0.03) X10*3/uL Absolute Neuts (auto) 8.8 H (2.0-8.3) x10*3/uL ESR 81 H (0-15) MM/HR Sodium 131 L (135-145) mmol/L Potassium (3.3-5.1) mmol/L Chloride (96-108) mmol/L Carbon Dioxide 15 L (22-29) mmol/L BUN 52 H (9-16) mg/dL Creatinine 3.33 H (0.5-1.4) mg/dL Calcium 6.9 L (8.4-10.2) mg/dL AST 52 H (5-37) U/L Alkaline Phosphatase 217 H (39-117) U/L C-Reactive Protein 12.28 H (< or = 0.50) mg/dL Total Protein 5.8 L (6.5-8.0) g/dL Albumin 2.1 L (3.5-5.0) g/dL Vitamin B12 (200-900) pg/mL Urine Blood (Negative) Ur Leukocyte Esterase (Negative) Urine WBC (0-5) /HPF Urine Cocaine Screen (Not Detect) 09/11/22 09/11/22 09/11/22 Range/Units 18:55 18:55 19:43 WBC (4.8-10.8) X10*3/uL RBC (4.60-5.80) X10*6/uL Hgb (14.0-18.0) g/dl Hct (42.0-52.0) % MCHC (31.0-36.0) g/dl RDW (11.0-16.0) % Plt Count (160-400) X10*3/uL Immature Gran % (Auto) (0.0-0.4) % Neut % (Auto) (45-73) % Lymph % (Auto) (20-40) % [place] % (Auto) (2-11) % Lymph # (Auto) (1.2-4.9) X10*3/uL Abs Immat Gran (auto) (0.00-0.03) X10*3/uL Absolute Neuts (auto) (2.0-8.3) x10*3/uL ESR (0-15) MM/HR Sodium (135-145) mmol/L Potassium (3.3-5.1) mmol/L Chloride (96-108) mmol/L Carbon Dioxide (22-29) mmol/L BUN (9-16) mg/dL Creatinine (0.5-1.4) mg/dL Calcium (8.4-10.2) mg/dL AST (5-37) U/L Alkaline Phosphatase (39-117) U/L C-Reactive Protein 11.13 H (< or = 0.50) mg/dL Total Protein (6.5-8.0) g/dL Albumin (3.5-5.0) g/dL Vitamin B12 (200-900) pg/mL Urine Blood Small (1+) H (Negative) Ur Leukocyte Esterase Large (3+) H (Negative) Urine WBC 21-50 H (0-5) /HPF Urine Cocaine Screen POSITIVE H (Not Detect) 09/11/22 09/12/22 09/12/22 Range/Units 19:43 06:15 06:15 WBC (4.8-10.8) X10*3/uL RBC 2.42 L (4.60-5.80) X10*6/uL Hgb 7.3 L (14.0-18.0) g/dl Hct 20.2 L* (42.0-52.0) % MCHC 36.1 H (31.0-36.0) g/dl RDW (11.0-16.0) % Plt Count 129 L (160-400) X10*3/uL Immature Gran % (Auto) 1.4 H (0.0-0.4) % Neut % (Auto) 79.0 H (45-73) % Lymph % (Auto) 8.0 L (20-40) % [place] % (Auto) (2-11) % Lymph # (Auto) 0.7 L (1.2-4.9) X10*3/uL Abs Immat Gran (auto) 0.12 H (0.00-0.03) X10*3/uL Absolute Neuts (auto) (2.0-8.3) x10*3/uL ESR (0-15) MM/HR Sodium (135-145) mmol/L Potassium 3.2 L (3.3-5.1) mmol/L Chloride 112 H (96-108) mmol/L Carbon Dioxide 16 L (22-29) mmol/L BUN 45 H (9-16) mg/dL Creatinine 2.48 H (0.5-1.4) mg/dL Calcium 6.5 L (8.4-10.2) mg/dL AST (5-37) U/L Alkaline Phosphatase (39-117) U/L C-Reactive Protein (< or = 0.50) mg/dL Total Protein (6.5-8.0) g/dL Albumin (3.5-5.0) g/dL Vitamin B12 > 2000 H (200-900) pg/mL Urine Blood (Negative) Ur Leukocyte Esterase (Negative) Urine WBC (0-5) /HPF Urine Cocaine Screen (Not Detect) Short CBC 09/11/22 09/12/22 Range/Units 15:33 06:15 WBC 11.0 H 8.5 (4.8-10.8) X10*3/uL Hgb 7.7 L 7.3 L (14.0-18.0) g/dl Hct 21.2 L 20.2 L* (42.0-52.0) % Plt Count 138 L 129 L (160-400) X10*3/uL BMP 09/11/22 09/12/22 09/12/22 15:34 06:15 06:15 Sodium 131 L 139 Potassium 3.5 3.2 L Chloride 103 112 H Carbon Dioxide 15 L 16 L BUN 52 H 45 H Creatinine 3.33 H 2.48 H Cancelled Calcium 6.9 L 6.5 L Liver Function 09/11/22 Range/Units 15:34 Total Bilirubin 1.0 (0.0-1.0) mg/dL AST 52 H (5-37) U/L ALT 25 (0-40) U/L Alkaline Phosphatase 217 H (39-117) U/L Albumin 2.1 L (3.5-5.0) g/dL Urine 09/11/22 Range/Units 18:55 Urine Color Yellow Urine Appearance Clear Urine pH 5.5 (5.0-9.0) Ur Specific [place] <= 1.005 (1.005-1.025) Urine Protein Negative (Neg-Trace) mg/dL Urine Glucose (UA) Negative (Negative) mg/dL All other labs normal. Assessment and Plan (1) Penile lesion: Status: Acute Plan isolated ulceration of the penis, negative STD screen so far. WBC initially elevated but now normalized this morning. Urology consulted by me this morning. No further general surgical issues. Time Spent With Patient Time: Total time managing care of this patient today ____ minutes. Procedures Date of Service Date of Service: 09/12/22
[2022-09-12] MEDS: Ibuprofen 800 MG TABLET PO ×3 (08:33→19:58)
[2022-09-12] MEDS: PHENobarbitaL 30 MG TABLET 60 MG PO ×2 (08:33→19:59)
[2022-09-12] MEDS: Folic Acid 1 MG TABLET PO (08:33)
[2022-09-12] MEDS: cefEPime HCl 1 GM in 0.9 % Sodium Chloride 50 ML IV (08:34)
[2022-09-12] MEDS: Lidocaine 4 % Patch ADH..PATCH 1 PATCH TRANSDERMA (08:35)
[2022-09-12] MEDS: 0.9 % Sodium Chloride Flush 3 ML SYRINGE IVFLUSH (08:35)
[2022-09-12] MEDS: Thiamine HCL 100 MG in 0.9 % Sodium Chloride 100 ML 202 MG IV (09:13)
--- NOTE | 2022-09-12 10:34 | P.PNIM_ITS ---
Subjective Subjective Date of Service: 09/12/22 Interval History: Somnolent but arousable. No signs of withdrawal. Review of Systems Unable to obtain secondary to somnolence Physical Exam 2 Vital Signs: Vital Signs: Last Vital Signs Temp 97.2 F 09/12/22 08:00 Pulse 58 09/12/22 08:00 Resp 18 09/12/22 08:00 BP 107/60 09/12/22 08:00 Pulse Ox 97 09/12/22 08:00 O2 Del Method Room Air 09/12/22 08:00 BMI result Body Mass Index 26.9 Const: Other: Somnolent but arousable no acute distress Resp: Other: Clear to auscultation bilaterally no rales rhonchi wheezes Cardio: Other: No S4; positive S1-S2; no S3 murmurs rubs or gallops : Other: See admission photos. Now leaking urine from dorsal wound Extrem: Other: No edema bilaterally Objective Data Active Medications Acetaminophen (Acetaminophen 325 Mg Tablet) 650 mg PO Q6H PRN PRN Reason: Pain, Mild (Pain Scale 1-3) Cyclobenzaprine HCl (Cyclobenzaprine Hcl 10 Mg Tablet) 10 mg PO BEDTIME [facility] Last Admin: 09/11/22 21:17 Dose: 10 mg Documented By: BRIAN Folic Acid (Folic Acid 1 Mg Tablet) 1 mg PO DAILY [facility] Last Admin: 09/12/22 08:33 Dose: 1 mg Documented By: ISRRAEL Thiamine HCl 100 mg/ Sodium (Chloride) 101 mls @ 202 mls/hr IV DAILY [facility] Last Infusion: 09/12/22 09:48 Dose: 0 mls/hr Documented By: TRINITY Vancomycin HCl 750 mg/ Sodium (Chloride) 265 mls @ 265 mls/hr IV Q24H [facility] Cefepime HCl 2 gm/ Sodium (Chloride) 50 mls @ 100 mls/hr IV Q12H [facility] Ibuprofen (Ibuprofen 800 Mg Tablet) 800 mg PO TID [facility] Last Admin: 09/12/22 08:33 Dose: 800 mg Documented By: ISRRAEL Lidocaine (Lidocaine 4 % Patch Adh..Patch) 1 patch TRANSDERMA DAILY [facility] Last Admin: 09/12/22 08:35 Dose: 1 patch Documented By: ISRRAEL Melatonin (Melatonin 3 Mg Tablet) 6 mg PO BEDTIME PRN PRN Reason: Insomnia Ondansetron HCl (Ondansetron Hcl 4 Mg/2 Ml Vial) 4 mg IVPUSH Q8H PRN PRN Reason: Nausea and Vomiting Pharmacy Consult (Consult Rx Perform Med Rec) 1 each MISCELLANE ONCE PRN PRN Reason: Consult order Pharmacy Consult (Consult Rx Etoh Phenob Im/Po) 1 each MISCELLANE ONCE PRN; Protocol PRN Reason: Consult order Pharmacy Consult (Consult Rx Vancomycin Dosing) 1 each MISCELLANE DAILY PRN PRN Reason: Consult order Phenobarbital (Phenobarbital 30 Mg Tablet) 60 mg PO BID [facility]; Protocol Stop: 09/13/22 21:01 Last Admin: 09/12/22 08:33 Dose: 60 mg Documented By: ISRRAEL Phenobarbital (Phenobarbital 30 Mg Tablet) 30 mg PO BID [facility]; Protocol Stop: 09/15/22 21:01 Phenobarbital (Phenobarbital 30 Mg Tablet) 30 mg PO DAILY [facility]; Protocol Stop: 09/17/22 09:01 Sodium Chloride (0.9 % Sodium Chloride Flush 3 Ml Syringe) 3 ml IVFLUSH [facility] Last Admin: 09/12/22 08:35 Dose: 3 ml Documented By: ISRRAEL Labs 09/12/22 06:15 09/12/22 06:15 Labs: Laboratory Results - last 24 hr 09/11/22 09/11/22 09/11/22 15:33 15:33 15:34 MCV 83.1 MCH 30.2 MCHC 36.3 H RDW 16.1 H Plt Count 138 L MPV 10.7 Immature Gran % (Auto) 0.7 H Neut % (Auto) 79.8 H Lymph % (Auto) 7.3 L [place] % (Auto) 11.1 H Eos % (Auto) 0.5 Baso % (Auto) 0.6 Lymph # (Auto) 0.8 L [place] # (Auto) 1.2 Eos # (Auto) 0.1 Baso # (Auto) 0.1 Abs Immat Gran (auto) 0.08 H Absolute Neuts (auto) 8.8 H Absolute Nucleated RBC 0.000 Nucleated RBC % (auto) 0.0 ESR 81 H Anion Gap 17 Estim Creat Clear Calc 27.3 Estimated GFR 19 Random Glucose 77 Lactic Acid Calcium 6.9 L Magnesium 1.6 Iron TIBC % Saturation Unsat Iron Binding Ferritin Total Bilirubin 1.0 AST 52 H ALT 25 Alkaline Phosphatase 217 H C-Reactive Protein 12.28 H Total Protein 5.8 L Albumin 2.1 L Vitamin B12 Folate Urine Color Urine Appearance Urine pH Ur Specific [place] Urine Protein Urine Glucose (UA) Urine Ketones Urine Blood Urine Nitrite Ur Leukocyte Esterase Urine RBC Urine WBC Ur Squamous Epith Cells Urine Bacteria Hyaline Casts Ur Random Sodium Urine Creatinine Urine Opiates Screen Urine Fentanyl Screen Ur Barbiturates Screen Ur Phencyclidine Scrn Ur Amphetamines Screen U Benzodiazepines Scrn Urine Cocaine Screen U Marijuana (THC) Screen Ethyl Alcohol 87 Chlam trachomat DNA PCR N.gonorrhoeae DNA (PCR) 09/11/22 09/11/22 09/11/22 16:30 16:50 18:55 MCV MCH MCHC RDW Plt Count MPV Immature Gran % (Auto) Neut % (Auto) Lymph % (Auto) [place] % (Auto) Eos % (Auto) Baso % (Auto) Lymph # (Auto) [place] # (Auto) Eos # (Auto) Baso # (Auto) Abs Immat Gran (auto) Absolute Neuts (auto) Absolute Nucleated RBC Nucleated RBC % (auto) ESR Anion Gap Estim Creat Clear Calc Estimated GFR Random Glucose Lactic Acid 1.8 Calcium Magnesium Iron TIBC % Saturation Unsat Iron Binding Ferritin Total Bilirubin AST ALT Alkaline Phosphatase C-Reactive Protein Total Protein Albumin Vitamin B12 Folate Urine Color Yellow Urine Appearance Clear Urine pH 5.5 Ur Specific [place] <= 1.005 Urine Protein Negative Urine Glucose (UA) Negative Urine Ketones Negative Urine Blood Small (1+) H Urine Nitrite Negative Ur Leukocyte Esterase Large (3+) H Urine RBC 0-2 Urine WBC 21-50 H Ur Squamous Epith Cells 0-2 Urine Bacteria None Seen Hyaline Casts 0-2 Ur Random Sodium Urine Creatinine Urine Opiates Screen Urine Fentanyl Screen Ur Barbiturates Screen Ur Phencyclidine Scrn Ur Amphetamines Screen U Benzodiazepines Scrn Urine Cocaine Screen U Marijuana (THC) Screen Ethyl Alcohol Chlam trachomat DNA PCR NOT DETECTED N.gonorrhoeae DNA (PCR) NOT DETECTED 09/11/22 09/11/22 09/11/22 18:55 18:55 19:43 MCV MCH MCHC RDW Plt Count MPV Immature Gran % (Auto) Neut % (Auto) Lymph % (Auto) [place] % (Auto) Eos % (Auto) Baso % (Auto) Lymph # (Auto) [place] # (Auto) Eos # (Auto) Baso # (Auto) Abs Immat Gran (auto) Absolute Neuts (auto) Absolute Nucleated RBC Nucleated RBC % (auto) ESR Anion Gap Estim Creat Clear Calc Estimated GFR Random Glucose Lactic Acid Calcium Magnesium Iron Cancelled TIBC Cancelled % Saturation Cancelled Unsat Iron Binding Cancelled Ferritin Cancelled Total Bilirubin AST ALT Alkaline Phosphatase C-Reactive Protein 11.13 H Total Protein Albumin Vitamin B12 Folate Urine Color Urine Appearance Urine pH Ur Specific [place] Urine Protein Urine Glucose (UA) Urine Ketones Urine Blood Urine Nitrite Ur Leukocyte Esterase Urine RBC Urine WBC Ur Squamous Epith Cells Urine Bacteria Hyaline Casts Ur Random Sodium 53.0 Urine Creatinine 22.11 Urine Opiates Screen Not Detected Urine Fentanyl Screen Not Detected Ur Barbiturates Screen Not Detected Ur Phencyclidine Scrn Not Detected Ur Amphetamines Screen Not Detected U Benzodiazepines Scrn Not Detected Urine Cocaine Screen POSITIVE H U Marijuana (THC) Screen Not Detected Ethyl Alcohol Chlam trachomat DNA PCR N.gonorrhoeae DNA (PCR) 09/11/22 09/12/22 09/12/22 19:43 06:15 06:15 MCV 83.5 MCH 30.2 MCHC 36.1 H RDW 16.0 Plt Count 129 L MPV 11.1 Immature Gran % (Auto) 1.4 H Neut % (Auto) 79.0 H Lymph % (Auto) 8.0 L [place] % (Auto) 10.1 Eos % (Auto) 0.7 Baso % (Auto) 0.8 Lymph # (Auto) 0.7 L [place] # (Auto) 0.9 Eos # (Auto) 0.1 Baso # (Auto) 0.1 Abs Immat Gran (auto) 0.12 H Absolute Neuts (auto) 6.7 Absolute Nucleated RBC 0.000 Nucleated RBC % (auto) 0.0 ESR Anion Gap 14 Estim Creat Clear Calc 36.9 Estimated GFR 27 Random Glucose 72 Lactic Acid Calcium 6.5 L Magnesium Iron TIBC % Saturation Unsat Iron Binding Ferritin Total Bilirubin AST ALT Alkaline Phosphatase C-Reactive Protein Total Protein Albumin Vitamin B12 > 2000 H Folate 4.5 Urine Color Urine Appearance Urine pH Ur Specific [place] Urine Protein Urine Glucose (UA) Urine Ketones Urine Blood Urine Nitrite Ur Leukocyte Esterase Urine RBC Urine WBC Ur Squamous Epith Cells Urine Bacteria Hyaline Casts Ur Random Sodium Urine Creatinine Urine Opiates Screen Urine Fentanyl Screen Ur Barbiturates Screen Ur Phencyclidine Scrn Ur Amphetamines Screen U Benzodiazepines Scrn Urine Cocaine Screen U Marijuana (THC) Screen Ethyl Alcohol Chlam trachomat DNA PCR N.gonorrhoeae DNA (PCR) 09/12/22 06:15 MCV MCH MCHC RDW Plt Count MPV Immature Gran % (Auto) Neut % (Auto) Lymph % (Auto) [place] % (Auto) Eos % (Auto) Baso % (Auto) Lymph # (Auto) [place] # (Auto) Eos # (Auto) Baso # (Auto) Abs Immat Gran (auto) Absolute Neuts (auto) Absolute Nucleated RBC Nucleated RBC % (auto) ESR Anion Gap Estim Creat Clear Calc Cancelled Estimated GFR Cancelled Random Glucose Lactic Acid Calcium Magnesium Iron TIBC % Saturation Unsat Iron Binding Ferritin Total Bilirubin AST ALT Alkaline Phosphatase C-Reactive Protein Total Protein Albumin Vitamin B12 Folate Urine Color Urine Appearance Urine pH Ur Specific [place] Urine Protein Urine Glucose (UA) Urine Ketones Urine Blood Urine Nitrite Ur Leukocyte Esterase Urine RBC Urine WBC Ur Squamous Epith Cells Urine Bacteria Hyaline Casts Ur Random Sodium Urine Creatinine Urine Opiates Screen Urine Fentanyl Screen Ur Barbiturates Screen Ur Phencyclidine Scrn Ur Amphetamines Screen U Benzodiazepines Scrn Urine Cocaine Screen U Marijuana (THC) Screen Ethyl Alcohol Chlam trachomat DNA PCR N.gonorrhoeae DNA (PCR) Microbiology Microbiology Results: Microbiology 09/11/22 17:13 Gram Stain - Final Penis 09/11/22 Unknown Urine Culture - Preliminary Urine clean catch - Urine ness top No growth to date. Assessment and Plan (1) Penile lesion: Status: Acute (2) Acute kidney injury: Status: Acute (3) Anemia: Status: Acute Plan 57-year-old male with history of alcohol dependence and chronic kidney disease, unspecified stage admitted for necrotic ulceration of penis with cellulitis. 1.Necrotic stage 2 ulceration of the penis with cellulitis -Cefepime/Vanco -urology to see today 2.Acute on chronic kidney disease -sister states this is not new... Unknown baseline - follow renals/divalents 3.Alcohol dependence -Phenobarb per protocol -[facility] 6 -Addiction medicine consult -IV thiamine and folic acid(history of gastric bypass) 4.Hyponatremia - resolved -follow renals/divalents 5.Normocytic anemia(sister states chronic. . . Noncompliant with iron/vitamin- C) -follow CBC SCPs Full code Pt requires ongoing hospitalization to treat penile cellulitis Time Spent With Patient Time: Total time managing care of this patient today ____ minutes. Quality Stroke Does the patient have a stroke diagnosis?: No VTE Prior VTE?: No VTE Risk Level:: Medical - moderate - high VTE Device Contraindication: N/A - Device Ordered VTE Drug Contraindication: Treatment Not Indicated
--- NOTE | 2022-09-12 10:59 | MHC.RECOVRN ---
Addendum entered by Aaliyah Bishop 09/12/22 11:07: Written recovery resources left at bedside. Original Note: Attempted to meet with pt in 378 after consult placed to Addiction Medicine for cocaine use. Pt somnolent but arousable, however, not able to engage in conversation. Sister present and informs t/w pt came to [place] on 09/09 for his birthday weekend. 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 Sister reports pt uses cocaine occasionally and drinks alcohol, up to 1 liter daily. Sister reports pt has a couple shots before work and some throughout the day and a pint of alcohol in the evening. Sister reports pt is in denial and has not been interested in recovery support in the past. Sister aware recovery team is available and will meet with pt once more awake.
--- NOTE | 2022-09-12 12:12 | MHC.CM.PN ---
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
[2022-09-12 15:26] VITALS: BP 105/65; PULSE 57; RESP 18; TEMP 36.3; O2SAT 96
[2022-09-12] MEDS: Acetaminophen 325 MG TABLET 650 MG PO (15:29)
[2022-09-12 19:46] VITALS: BP 100/58; PULSE 73; RESP 18; TEMP 36.4; O2SAT 97
[2022-09-12] MEDS: Cyclobenzaprine HCl 10 MG TABLET PO (19:58)
[2022-09-12] MEDS: cefEPime HCl 2 GM in 0.9 % Sodium Chloride 50 ML IV (19:58)
[2022-09-12] MEDS: vancomycin HCL 750 MG in 0.9 % Sodium Chloride 250 ML 265 MG IV (22:15)
[2022-09-13] VITALS (7 sets, daily range): BP systolic 104–128; BP diastolic 67–78; PULSE 60–80; RESP 16–19; TEMP 36–36.8; O2SAT 96–99
[2022-09-13 07:36] LABS: Creatinine Clr Calc Pharmacy 49.5; Estimated Glomerular Filt Rate 38
[2022-09-13] MEDS: Folic Acid 1 MG TABLET PO (08:10)
[2022-09-13] MEDS: Ibuprofen 800 MG TABLET PO (08:11)
[2022-09-13] MEDS: PHENobarbitaL 30 MG TABLET 60 MG PO ×2 (08:11→19:49)
[2022-09-13] MEDS: cefEPime HCl 2 GM in 0.9 % Sodium Chloride 50 ML IV ×2 (08:11→19:47)
[2022-09-13] MEDS: Lidocaine 4 % Patch ADH..PATCH 1 PATCH TRANSDERMA (08:12)
--- NOTE | 2022-09-13 09:14 | P.EN_ITS ---
Event Note Date of Service: 09/13/22 Event Note: Addiction consult placed Patient seen by data entry coordinator, please see note dated 09/12/22 Time Spent With Patient Time: Total time managing care of this patient today ____ minutes.
--- NOTE | 2022-09-13 09:32 | MHC.RECOVSUP ---
Attempted to meet with pt in 378 after consult placed to Addiction Medicine for cocaine use. Pt was asleep at this time after being given medication per his sister. T/W reviewed recovery resources with pt sister.
[2022-09-13] MEDS: Thiamine HCL 100 MG in 0.9 % Sodium Chloride 100 ML 202 MG IV (10:01)
[2022-09-13 10:43] LABS: Syphilis Screen Nonreactive (Nonreactive)
[2022-09-13 11:29] LABS: Ferritin 157 ng/mL (20-250); HIV AB/AG Nonreactive (Nonreactive); HIV Num 1 0.05 S/CO (0.00-0.99)
[2022-09-13 11:32] LABS: Iron 109 mcg/dL (45-160); Percent Iron Saturation 81 % (15-50); Total Iron Binding Capacity 134 mcg/dL (228-428); Unsaturated Iron Binding < 25 ug/dL
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
[2022-09-13] MEDS: HYDROmorphone HCl 1 MG/ML SYRINGE IVPUSH (15:08)
[2022-09-13] MEDS: Cyclobenzaprine HCl 10 MG TABLET PO (19:48)
[2022-09-13] MEDS: 0.9 % Sodium Chloride Flush 3 ML SYRINGE IVFLUSH (19:49)
[2022-09-13 20:28] LABS: Vancomycin Random 10.3 mcg/mL (15-20)
[2022-09-13] MEDS: vancomycin HCL 1,000 MG in 0.9 % Sodium Chloride 250 ML 270 MG IV (22:10)
[2022-09-14 03:16] VITALS: BP 125/77; PULSE 72; RESP 16; TEMP 36.3; O2SAT 97
[2022-09-14] MEDS: Omeprazole 20 MG CAPSULE.DR PO (05:50)
[2022-09-14 06:04] LABS: Hematocrit 23.7 % (42.0-52.0); Hemoglobin 8.1 g/dl (14.0-18.0); Mean Corpuscular HGB Conc 34.2 g/dl (31.0-36.0); Mean Corpuscular Volume 87.8 fL (80.0-98.0); Mean Platelet Volume 12.3 fL (9.4-12.4); NRBC Pct Auto 0.2 /100WBC (0.0-0.2); Platelet Count 154 X10*3/uL (160-400); Red Cell Distribution Width 18.6 % (11.0-16.0); White Blood Count 9.1 X10*3/uL (4.8-10.8)
[2022-09-14 06:09] LABS: INTERNATIONAL NORM RATIO 1.2 (0.9-1.1); Prothrombin Time 13.9 SEC (10.0-13.1)
[2022-09-14 06:32] LABS: Anion Gap 10 (12-20); Blood Urea Nitrogen 35 mg/dL (9-16); Calcium 6.9 mg/dL (8.4-10.2); Carbon Dioxide 17 mmol/L (22-29); Chloride 114 mmol/L (96-108); Creatinine Clr Calc Pharmacy 72.1; Estimated Glomerular Filt Rate 59; Glucose Random 77 mg/dL (60-115); Potassium 3.4 mmol/L (3.3-5.1); Sodium 138 mmol/L (135-145)
[2022-09-14 07:32] VITALS: BP 115/72; PULSE 68; RESP 18; TEMP 36.3; O2SAT 97
[2022-09-14] MEDS: PHENobarbitaL 30 MG TABLET PO ×2 (08:09→21:21)
[2022-09-14] MEDS: Acetaminophen 325 MG TABLET 650 MG PO (08:09)
[2022-09-14] MEDS: Folic Acid 1 MG TABLET PO (08:10)
[2022-09-14] MEDS: Lidocaine 4 % Patch ADH..PATCH 1 PATCH TRANSDERMA (08:18)
[2022-09-14] MEDS: cefEPime HCl 2 GM in 0.9 % Sodium Chloride 50 ML IV ×2 (08:20→21:21)
[2022-09-14] MEDS: 0.9 % Sodium Chloride Flush 3 ML SYRINGE IVFLUSH ×3 (08:21→21:22)
--- NOTE | 2022-09-14 08:47 | P.CNUR_ITS ---
History of Present Illness Consult details Consult date: 09/14/22 Narrative: Jonathon is a Frisian-speaking male Visiting his sister in [place] from [place] Known history of alcohol dependence and chronic kidney disease Presented to emergency room with penile lesion and Brittany discharge, denied fever, chills, dysuria. WBC 11.1, creatinine 3.3, AST 52 ALT 25. CRP 11.2 ESR 81. Urine tox screen positive for cocaine Drinks alcohol daily CT scan shows prominent renal pelvis with mild proximal ureteric dilatation Difficult Leiva catheter placement Meatal scarring He has eroded his penile glans through the superior aspect of his foreskin Leiva catheter placed with 1 L residual Recommend antibiotics with Levia catheter for resolution of creatinine elevation May switch to catheter cap once creatinine resolve Decision to be made regarding salvage circumcision based on progression Review of Systems Constitutional: Constitutional: Reports as per HPI and Reports no additional constitutional complaints Cardiovascular: Cardiovascular: Reports as per HPI and Reports no additional cardiovascular complaints Respiratory: Respiratory: Reports as per HPI and Reports no additional respiratory complaints Gastrointestinal: Gastrointestinal: Reports as per HPI and Reports no additional gastrointestinal complaints Genitourinary: Genitourinary: Reports as per HPI Musculoskeletal: Musculoskeletal: Reports no additional musculoskeletal complaints and Reports as per HPI Neurologic: Reports system reviewed and no additional complaints, except as documented and Reports as per HPI [facility] Past Medical History Medical History (Updated 09/12/22 @ 10:38 by Sharif Suarez DO) Alcohol dependence Chronic kidney disease Surgical History Surgical History (Updated 09/11/22 @ 20:39 by JIGAR De La Torre) S/P bariatric surgery Social History Social History Household Members: Children Household Members Other:: son Housing: Apartment Do you presently have visiting nurse or other home services: No Alcohol intake: current Alcohol intake frequency: 3 or more drinks per day Alcohol type: hard liquor Patient Tobacco Use Status: Current everyday Tobacco user Tobacco use type: Cigarette Cigarettes Per Day: 2 Substance Use Type: Crack/Cocaine service: No Current occupational status: employed Meds Allergies Allergy/AdvReac Type Severity Reaction Status Date / Time No Known Allergies Allergy Verified 09/11/22 16:54 Active Medications: Current Medications Acetaminophen (Acetaminophen 325 Mg Tablet) 650 mg PO Q6H PRN PRN Reason: Pain, Mild (Pain Scale 1-3) Last Admin: 09/14/22 08:09 Dose: 650 mg Cyclobenzaprine HCl (Cyclobenzaprine Hcl 10 Mg Tablet) 10 mg PO BEDTIME [facility] Last Admin: 09/13/22 19:48 Dose: 10 mg Folic Acid (Folic Acid 1 Mg Tablet) 1 mg PO DAILY [facility] Last Admin: 09/14/22 08:10 Dose: 1 mg Hydromorphone HCl (Hydromorphone Hcl 1 Mg/Ml Syringe) 1 mg IVPUSH Q4H PRN; Protocol PRN Reason: Pain, Severe (Pain Scale 7-10) Last Admin: 09/13/22 15:08 Dose: 1 mg Thiamine HCl 100 mg/ Sodium (Chloride) 101 mls @ 202 mls/hr IV DAILY [facility] Last Infusion: 09/13/22 10:59 Dose: Infused Cefepime HCl 2 gm/ Sodium (Chloride) 50 mls @ 100 mls/hr IV Q12H [facility] Last Admin: 09/14/22 08:20 Dose: 100 mls/hr Vancomycin HCl 1,000 mg/ (Sodium Chloride) 270 mls @ 270 mls/hr IV Q24H [facility] Last Infusion: 09/13/22 23:24 Dose: Infused Lidocaine (Lidocaine 4 % Patch Adh..Patch) 1 patch TRANSDERMA DAILY [facility] Last Admin: 09/14/22 08:18 Dose: 1 patch Melatonin (Melatonin 3 Mg Tablet) 6 mg PO BEDTIME PRN PRN Reason: Insomnia Omeprazole (Omeprazole 20 Mg Capsule.Dr) 20 mg PO DAILY@0630 [facility] Last Admin: 09/14/22 05:50 Dose: 20 mg Ondansetron HCl (Ondansetron Hcl 4 Mg/2 Ml Vial) 4 mg IVPUSH Q8H PRN PRN Reason: Nausea and Vomiting Pharmacy Consult (Consult Rx Perform Med Rec) 1 each MISCELLANE ONCE PRN PRN Reason: Consult order Pharmacy Consult (Consult Rx Etoh Phenob Im/Po) 1 each MISCELLANE ONCE PRN; Protocol PRN Reason: Consult order Pharmacy Consult (Consult Rx Vancomycin Dosing) 1 each MISCELLANE DAILY PRN PRN Reason: Consult order Phenobarbital (Phenobarbital 30 Mg Tablet) 30 mg PO BID [facility]; Protocol Stop: 09/15/22 21:01 Last Admin: 09/14/22 08:09 Dose: 30 mg Phenobarbital (Phenobarbital 30 Mg Tablet) 30 mg PO DAILY [facility]; Protocol Stop: 09/17/22 09:01 Sodium Chloride (0.9 % Sodium Chloride Flush 3 Ml Syringe) 3 ml IVFLUSH QSHIFT [facility] Last Admin: 09/14/22 08:21 Dose: 3 ml Home Medications Medication Instructions Recorded Confirmed Last Taken Type cyclobenzaprine 10 mg tablet 10 mg PO BEDTIME 09/11/22 09/11/22 Unknown History ibuprofen 800 mg tablet 800 mg PO TID 09/11/22 09/11/22 Unknown History lidocaine 5 % topical patch 1 patch topical DAILY 09/11/22 09/11/22 Unknown History Physical Exam Vital Signs: Vital Signs: Last Vital Signs Temp 97.4 F 09/14/22 07:32 Pulse 68 09/14/22 07:32 Resp 18 09/14/22 07:32 BP 115/72 09/14/22 07:32 Pulse Ox 97 09/14/22 07:32 O2 Del Method Room Air 09/14/22 07:32 BMI result Body Mass Index 26.9 Const: General: cooperative, healthy appearing, comfortable and no acute distress Orientation/consciousness: patient oriented x3 HEENT: Face and sinus: Yes normal facial exam Mouth: moist mucous membranes Neck: Neck: Yes normal visual inspection, Yes full ROM and Yes trachea midline Chest: Chest palpation & inspection: normal inspection of the chest Resp: Effort & Inspection: normal respiratory effort, able to speak in complete sentences and no respiratory distress GI: Inspection: Yes normal to inspection Back/Spine/Pelvis: Cervical Spine: normal cervical lordosis Thoracic/Lumbar Spine: thoracic and lumbar spine normal to inspection Skin: General skin exam: no rashes or lesions noted Neuro: General: patient oriented x3, tone normal and moves all extremities Extrem: General: Yes normal to inspection and Yes capillary refill normal Results Labs 09/14/22 05:43 09/14/22 05:43 Labs: Abnormal lab results 09/13/22 09/13/22 09/13/22 Range/Units 10:41 10:41 20:02 RBC (4.60-5.80) X10*6/uL Hgb (14.0-18.0) g/dl Hct (42.0-52.0) % RDW (11.0-16.0) % Plt Count (160-400) X10*3/uL Absolute Nucleated RBC (0.0-0.012) X10*3/uL PT (10.0-13.1) SEC INR (0.9-1.1) Chloride (96-108) mmol/L Carbon Dioxide (22-29) mmol/L Anion Gap (12-20) BUN (9-16) mg/dL Calcium (8.4-10.2) mg/dL TIBC 134 L (228-428) mcg/dL % Saturation 81 H (15-50) % Random Vancomycin 10.3 L (15-20) mcg/mL Crossmatch See Detail 09/14/22 09/14/22 09/14/22 Range/Units 05:43 05:43 05:43 RBC 2.70 L (4.60-5.80) X10*6/uL Hgb 8.1 L (14.0-18.0) g/dl Hct 23.7 L (42.0-52.0) % RDW 18.6 H (11.0-16.0) % Plt Count 154 L (160-400) X10*3/uL Absolute Nucleated RBC 0.020 H (0.0-0.012) X10*3/uL PT 13.9 H (10.0-13.1) SEC INR 1.2 H (0.9-1.1) Chloride 114 H (96-108) mmol/L Carbon Dioxide 17 L (22-29) mmol/L Anion Gap 10 L (12-20) BUN 35 H (9-16) mg/dL Calcium 6.9 L D (8.4-10.2) mg/dL TIBC (228-428) mcg/dL % Saturation (15-50) % Random Vancomycin (15-20) mcg/mL Crossmatch Short CBC 09/14/22 Range/Units 05:43 WBC 9.1 (4.8-10.8) X10*3/uL Hgb 8.1 L (14.0-18.0) g/dl Hct 23.7 L (42.0-52.0) % Plt Count 154 L (160-400) X10*3/uL BMP 09/14/22 09/14/22 05:43 05:43 Sodium 138 Potassium 3.4 Chloride 114 H Carbon Dioxide 17 L BUN 35 H Creatinine Cancelled 1.27 Calcium 6.9 L D Urine 09/11/22 Range/Units 18:55 Urine Color Yellow Urine Appearance Clear Urine pH 5.5 (5.0-9.0) Ur Specific [place] <= 1.005 (1.005-1.025) Urine Protein Negative (Neg-Trace) mg/dL Urine Glucose (UA) Negative (Negative) mg/dL All other labs normal. Assessment and Plan (1) Cellulitis: Status: Acute (2) Penile lesion: Status: Acute Plan Leiva catheter placed Time Spent With Patient Time: Total time managing care of this patient today ____ minutes. Procedures Date of Service Date of Service: 09/14/22 Catheter Insertion (Urinary) Date of insertion: 09/13/22 Replacement of catheter present on admission: No Reason for placing: Acute urinary retention Antiseptic solution prep: Povidone-Iodine Catheter type/location: Urethral Size (Lithuanian): 16 Results: consulted Procedure performed: without complications
[2022-09-14] MEDS: Thiamine HCL 100 MG in 0.9 % Sodium Chloride 100 ML 202 MG IV (09:32)
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
[2022-09-14 16:00] VITALS: BP 120/73; PULSE 70; RESP 20; TEMP 36.3; O2SAT 99
[2022-09-14 19:08] VITALS: BP 116/76; PULSE 68; RESP 18; TEMP 36.6; O2SAT 98
[2022-09-14 20:37] LABS: Vancomycin Random 11.4 mcg/mL (15-20)
[2022-09-14] MEDS: Cyclobenzaprine HCl 10 MG TABLET PO (21:20)
[2022-09-14] MEDS: vancomycin HCL 1,000 MG in 0.9 % Sodium Chloride 250 ML 270 MG IV (22:14)
[2022-09-15 03:50] VITALS: BP 118/75; PULSE 69; RESP 18; TEMP 36.2; O2SAT 96
[2022-09-15 04:00] VITALS: TEMP -17.7; TEMP 0
[2022-09-15] MEDS: Omeprazole 20 MG CAPSULE.DR PO (05:55)
[2022-09-15 06:55] LABS: Creatinine Clr Calc Pharmacy 101.7; Estimated Glomerular Filt Rate > 60
[2022-09-15 07:38] VITALS: BP 115/73; PULSE 69; RESP 18; TEMP 36.7; O2SAT 97
[2022-09-15] MEDS: Folic Acid 1 MG TABLET PO (08:40)
[2022-09-15] MEDS: PHENobarbitaL 30 MG TABLET PO ×2 (08:40→21:00)
[2022-09-15] MEDS: Thiamine HCL 100 MG in 0.9 % Sodium Chloride 100 ML 202 MG IV (08:40)
[2022-09-15] MEDS: Lidocaine 4 % Patch ADH..PATCH 1 PATCH TRANSDERMA (08:44)
[2022-09-15] MEDS: cefEPime HCl 2 GM in 0.9 % Sodium Chloride 50 ML IV ×2 (08:45→20:11)
[2022-09-15] MEDS: 0.9 % Sodium Chloride Flush 3 ML SYRINGE IVFLUSH ×3 (08:51→23:40)
[2022-09-15] MEDS: HYDROmorphone HCl 1 MG/ML SYRINGE IVPUSH (09:35)
--- NOTE | 2022-09-15 13:07 | MHC.CM.PN ---
EMR REVIEWED AND PER MD ROUNDS, PT IS NOT MEDICALLY CLEARED FOR DC (PENILE CELLULITIS, IV ABT) CM WILL CONTINUE TO FOLLOW FOR ANY CHANGE IN DC PLAN/NEEDS
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
[2022-09-15 15:18] VITALS: BP 117/70; PULSE 68; RESP 18; TEMP 36.3; O2SAT 97
[2022-09-15 19:18] VITALS: BP 115/71; PULSE 75; RESP 20; TEMP 36.6; O2SAT 98
[2022-09-15 20:12] LABS: Vancomycin Random 12.2 mcg/mL (15-20)
--- NOTE | 2022-09-15 20:30 | HE.PHANOTE ---
RE VANCO PATIENT SCR IMPROVING. INCREASING FREQUENCY AND CHANGING DOSE TO 750 Q12H. BASED ON THE BAYNESIAN MODEL WITH FLATTENED POINTS, SUSPECTED AUC 441, TROUGH 15.6 PETRA
[2022-09-15] MEDS: vancomycin HCL 750 MG in 0.9 % Sodium Chloride 250 ML 265 MG IV (20:59)
[2022-09-15] MEDS: Cyclobenzaprine HCl 10 MG TABLET PO (21:00)
[2022-09-16] VITALS (7 sets, daily range): BP systolic 118–139; BP diastolic 69–82; PULSE 62–85; RESP 17–20; TEMP 35.8–36.9; O2SAT 95–98
[2022-09-16] MEDS: Omeprazole 20 MG CAPSULE.DR PO (06:38)
[2022-09-16 06:42] LABS: Hemoglobin 7.3 g/dl (14.0-18.0); Mean Corpuscular HGB Conc 35.6 g/dl (31.0-36.0); Mean Corpuscular Hemoglobin 30.8 pg (27.0-33.0); Mean Corpuscular Volume 86.5 fL (80.0-98.0); Mean Platelet Volume 11.6 fL (9.4-12.4); Platelet Count 142 X10*3/uL (160-400); Red Blood Count 2.37 X10*6/uL (4.60-5.80); Red Cell Distribution Width 17.6 % (11.0-16.0)
[2022-09-16 06:56] LABS: Anion Gap 7 (12-20); Blood Urea Nitrogen 18 mg/dL (9-16); Calcium 6.6 mg/dL (8.4-10.2); Carbon Dioxide 20 mmol/L (22-29); Chloride 112 mmol/L (96-108); Creatinine Clr Calc Pharmacy 118.9; Estimated Glomerular Filt Rate > 60; Glucose Random 69 mg/dL (60-115); Potassium 3.4 mmol/L (3.3-5.1); Sodium 136 mmol/L (135-145)
[2022-09-16] MEDS: 0.9 % Sodium Chloride Flush 3 ML SYRINGE IVFLUSH ×3 (07:38→21:30)
[2022-09-16] MEDS: cefEPime HCl 2 GM in 0.9 % Sodium Chloride 50 ML IV ×2 (07:38→19:16)
[2022-09-16 07:57] LABS: Hematocrit 20.5 % (42.0-52.0)
[2022-09-16] MEDS: vancomycin HCL 750 MG in 0.9 % Sodium Chloride 250 ML 265 MG IV ×2 (08:58→21:22)
[2022-09-16] MEDS: Folic Acid 1 MG TABLET PO (09:01)
[2022-09-16] MEDS: PHENobarbitaL 30 MG TABLET PO (09:01)
[2022-09-16] MEDS: Thiamine HCL 100 MG TABLET PO (09:01)
[2022-09-16] MEDS: Lidocaine 4 % Patch ADH..PATCH 1 PATCH TRANSDERMA (09:02)
--- NOTE | 2022-09-16 15:52 | HO.PM.IMPN ---
Subjective Subjective Date of Service: 09/16/22 Interval History: Seen and examined this morning Follow-up for penile ulcer No specific complaints this morning Review of Systems Review of Systems: Yes all other systems are reviewed and are negative Constitutional Constitutional: Denies chills and Denies fever(s) Cardiovascular Cardiovascular: Denies chest pain, Denies palpitations and Denies dyspnea Respiratory Respiratory: Denies cough and Denies dyspnea Gastrointestinal Gastrointestinal: Denies abdominal pain Endocrine Endocrine: Denies palpitations Physical Exam Vital Signs: Vital Signs: Last Vital Signs Temp 96.5 F L 09/16/22 15:03 Pulse 62 09/16/22 15:03 Resp 18 09/16/22 15:03 BP 119/73 09/16/22 15:03 Pulse Ox 95 09/16/22 11:14 O2 Del Method Room Air 09/16/22 11:14 BMI result Body Mass Index 26.9 Const: Other: sleepy but easily arousable to verbal stimuli. answering questions appropriately General: cooperative, comfortable and no acute distress Nutritional Appearance: average body habitus Resp: Effort & Inspection: normal respiratory effort, able to speak in complete sentences, no respiratory distress and no use of accessory muscles Cardio: Rate: regular rate Heart sounds: S1 normal heart sound present and S2 normal heart sound present GI: Inspection: No distended Palpation (GI): Soft to palpation and nontender : Other: sandoval in place draining yellow urine; penile ulcer present with clean base, no drainage Neuro: General: moves all extremities and CN's II-XI intact bilaterally Extrem: Other: trace lower extremity edema Objective Data Active Medications Acetaminophen (Acetaminophen 325 Mg Tablet) 650 mg PO Q6H PRN PRN Reason: Pain, Mild (Pain Scale 1-3) Last Admin: 09/14/22 08:09 Dose: 650 mg Documented By: MARILYN Cyclobenzaprine HCl (Cyclobenzaprine Hcl 10 Mg Tablet) 10 mg PO BEDTIME [facility] Last Admin: 09/15/22 21:00 Dose: 10 mg Documented By: SID Folic Acid (Folic Acid 1 Mg Tablet) 1 mg PO DAILY [facility] Last Admin: 09/16/22 09:01 Dose: 1 mg Documented By: MICHAELA Hydromorphone HCl (Hydromorphone Hcl 1 Mg/Ml Syringe) 1 mg IVPUSH Q4H PRN; Protocol PRN Reason: Pain, Severe (Pain Scale 7-10) Last Admin: 09/15/22 09:35 Dose: 1 mg Documented By: GLORIA Cefepime HCl 2 gm/ Sodium (Chloride) 50 mls @ 100 mls/hr IV Q12H [facility] Last Infusion: 09/16/22 08:15 Dose: 0 mls/hr Documented By: MICHAELA Vancomycin HCl 750 mg/ Sodium (Chloride) 265 mls @ 265 mls/hr IV Q12H [facility] Last Infusion: 09/16/22 10:31 Dose: 0 mls/hr Documented By: MICHAELA Lidocaine (Lidocaine 4 % Patch Adh..Patch) 1 patch TRANSDERMA DAILY [facility] Last Admin: 09/16/22 09:02 Dose: 1 patch Documented By: MICHAELA Melatonin (Melatonin 3 Mg Tablet) 6 mg PO BEDTIME PRN PRN Reason: Insomnia Omeprazole (Omeprazole 20 Mg Capsule.Dr) 20 mg PO DAILY@0630 [facility] Last Admin: 09/16/22 06:38 Dose: 20 mg Documented By: PAIGE Ondansetron HCl (Ondansetron Hcl 4 Mg/2 Ml Vial) 4 mg IVPUSH Q8H PRN PRN Reason: Nausea and Vomiting Pharmacy Consult (Consult Rx Perform Med Rec) 1 each MISCELLANE ONCE PRN PRN Reason: Consult order Pharmacy Consult (Consult Rx Etoh Phenob Im/Po) 1 each MISCELLANE ONCE PRN; Protocol PRN Reason: Consult order Pharmacy Consult (Consult Rx Vancomycin Dosing) 1 each MISCELLANE DAILY PRN PRN Reason: Consult order Phenobarbital (Phenobarbital 30 Mg Tablet) 30 mg PO DAILY [facility]; Protocol Stop: 09/17/22 09:01 Last Admin: 09/16/22 09:01 Dose: 30 mg Documented By: MICHAELA Sodium Chloride (0.9 % Sodium Chloride Flush 3 Ml Syringe) 3 ml IVFLUSH QSHIFT [facility] Last Admin: 09/16/22 14:47 Dose: 3 ml Documented By: TRINITY Thiamine HCl (Thiamine Hcl 100 Mg Tablet) 100 mg PO DAILY [facility] Last Admin: 09/16/22 09:01 Dose: 100 mg Documented By: MICHAELA Labs 09/16/22 05:43 09/16/22 05:43 Labs: Laboratory Results - last 24 hr 05/09/15/22 09/16/22 10:41 19:43 05:43 MCV 86.5 MCH 30.8 MCHC 35.6 RDW 17.6 H Plt Count 142 L MPV 11.6 Absolute Nucleated RBC 0.000 Nucleated RBC % (auto) 0.0 Anion Gap Estim Creat Clear Calc Estimated GFR Random Glucose Calcium Random Vancomycin 12.2 L Blood Type O Positive Antibody Screen NEGATIVE Crossmatch See Detail 09/16/22 05:43 MCV MCH MCHC RDW Plt Count MPV Absolute Nucleated RBC Nucleated RBC % (auto) Anion Gap 7 L Estim Creat Clear Calc 118.9 Estimated GFR > 60 Random Glucose 69 Calcium 6.6 L Random Vancomycin Blood Type Antibody Screen Crossmatch Assessment and Plan (1) Alcohol dependence: Status: Acute (2) Penile lesion: Status: Acute (3) Anemia: Status: Acute Plan 57-year-old male with history of alcohol dependence and chronic kidney disease, unspecified stage admitted for necrotic ulceration of penis with cellulitis, status post gastric bypass surgery for obesity. Necrotic stage 2 ulceration of the penis with cellulitis continue iv Cefepime/Vanco started 09/11, CRP 11.13 Underwent Sandoval catheter replacement by Dr. Antony had difficult placement due to meatal scarring and erosion of glans plan is for circumcision 09/17, keep patient NPO overnight HIV, chlamydia, gonorrhea and syphilis nonreactive. Follow CRP and after circumcision will narrow antibiotic coverage to by mouth Augmentin Blood cultures negative Acute on chronic kidney disease (unknown baseline)/metabolic acidosis resolved patient is from [place] no baseline available creatinine returned to normal after Sandoval catheter placement likely had obstructive uropathy, bicarb improving, follow BMP Alcohol dependence as per sister drink 1 L daily. no evidence of alcohol withdrawal at this time continue Phenobarb per protocol dc IV thiamine , placed on by mouth thiamine and folic acid(history of gastric bypass) seen by addiction medicine, resources provided Hyponatremia - resolved Normocytic anemia(sister states chronic) Received 1 unit of packed RBC hematocrit improved, no acute GI bleed noted Normal B12 folate and iron studies likely due to chronic kidney disease and bone marrow suppresion from etoh use will transfuse additional unit of RBC follow CBC Thrombocytopenia likely r/t etoh follow CBC urology rec platelet transfusion prior to procedure tomorrow Hypoalbuminemia likely due to poor nutrition, LFTs unremarkable , HIV nonreactive, INR 1.2, continue protein shakes. Hypocalcemia due to low albumin DVT ppx -boots Full code attending - dr. akins Pt. requires ongoing hospitalization to treat penile cellulitis, requiring IV antibiotics and plan for circumcision Time Spent With Patient Time: Total time managing care of this patient today ____ minutes. Quality Stroke Does the patient have a stroke diagnosis?: No VTE Prior VTE?: No VTE Risk Level:: Medical - moderate - high VTE Device Contraindication: N/A - Device Ordered VTE Drug Contraindication: Treatment Not Indicated
[2022-09-16 19:29] LABS: Vancomycin Random 14.5 mcg/mL (15-20)
[2022-09-16] MEDS: Cyclobenzaprine HCl 10 MG TABLET PO (21:21)
[2022-09-17] VITALS (14 sets, daily range): BP systolic 98–126; BP diastolic 62–83; PULSE 61–79; RESP 13–22; TEMP 35.6–37.1; O2SAT 96–99
[2022-09-17] MEDS: Omeprazole 20 MG CAPSULE.DR PO (05:33)
[2022-09-17] MEDS: 0.9 % Sodium Chloride Flush 3 ML SYRINGE IVFLUSH ×2 (07:22→20:19)
[2022-09-17] MEDS: cefEPime HCl 2 GM in 0.9 % Sodium Chloride 50 ML IV (07:22)
[2022-09-17 07:30] LABS: Hematocrit 23.5 % (42.0-52.0); Hemoglobin 8.2 g/dl (14.0-18.0); Mean Corpuscular HGB Conc 34.9 g/dl (31.0-36.0); Mean Corpuscular Hemoglobin 30.5 pg (27.0-33.0); Mean Corpuscular Volume 87.4 fL (80.0-98.0); Mean Platelet Volume 11.6 fL (9.4-12.4); Platelet Count 164 X10*3/uL (160-400); Red Blood Count 2.69 X10*6/uL (4.60-5.80); Red Cell Distribution Width 17.4 % (11.0-16.0); White Blood Count 9.9 X10*3/uL (4.8-10.8)
[2022-09-17] MEDS: Thiamine HCL 100 MG TABLET PO (08:24)
[2022-09-17] MEDS: Lidocaine 4 % Patch ADH..PATCH 1 PATCH TRANSDERMA (08:24)
[2022-09-17] MEDS: vancomycin HCL 750 MG in 0.9 % Sodium Chloride 250 ML 265 MG IV (08:24)
[2022-09-17] MEDS: PHENobarbitaL 30 MG TABLET PO (08:24)
[2022-09-17] MEDS: Folic Acid 1 MG TABLET PO (08:25)
[2022-09-17 08:28] LABS: Creatinine Clr Calc Pharmacy 123.7; Estimated Glomerular Filt Rate > 60
--- NOTE | 2022-09-17 09:04 | HE.PHANOTE ---
VANCOMYCIN DOSING BASED ON SCR DOSE CONTINUED AT 750 Q 12H. NEXT TROUGH 09/18 @ 1200
--- NOTE | 2022-09-17 14:26 | MHC.CM.PN ---
EMR REVIEWED AND PER MD ROUNDS, PT IS NOT MEDICALLY CLEARED FOR DC TODAY (CIRCUMCISION SCHEDULED FOR TODAY, IV ABT) CM WILL CONTINUE TO FOLLOW FOR DC PLAN/NEEDS
--- NOTE | 2022-09-17 15:24 | P.PNIM_ITS ---
Subjective Subjective Date of Service: 09/17/22 Interval History: Seen and examined this morning Follow-up for penile ulcer no overnight events no significant change, still having pain with movement Review of Systems Review of Systems: Yes all other systems are reviewed and are negative Constitutional Constitutional: Denies chills and Denies fever(s) ENT Ears, Nose, Mouth, and Throat: Denies dizziness Cardiovascular Cardiovascular: Denies chest pain, Denies palpitations and Denies dyspnea Respiratory Respiratory: Denies cough and Denies dyspnea Gastrointestinal Gastrointestinal: Denies abdominal pain, Denies nausea and Denies vomiting Neurologic Neurologic: Denies dizziness Endocrine Endocrine: Denies palpitations Physical Exam Vital Signs: Vital Signs: Last Vital Signs Temp 97.8 F 09/17/22 13:34 Pulse 61 09/17/22 13:34 Resp 17 09/17/22 13:34 BP 124/75 09/17/22 13:34 Pulse Ox 98 09/17/22 07:31 O2 Del Method Room Air 09/17/22 07:31 BMI result Body Mass Index 26.9 Const: Other: sleepy but easily arousable to verbal stimuli. answering questions appropriately General: cooperative, comfortable and no acute distress Nutritional Appearance: average body habitus Resp: Effort & Inspection: normal respiratory effort, able to speak in complete sentences, no respiratory distress and no use of accessory muscles Cardio: Rate: regular rate Heart sounds: S1 normal heart sound present and S2 normal heart sound present GI: Inspection: No distended Palpation (GI): Soft to palpation and nontender : Other: sandoval in place draining yellow urine; penile ulcer present with clean base, no drainage Neuro: General: moves all extremities and CN's II-XI intact bilaterally Extrem: Other: trace lower extremity edema Objective Data Active Medications Acetaminophen (Acetaminophen 325 Mg Tablet) 650 mg PO Q6H PRN PRN Reason: Pain, Mild (Pain Scale 1-3) Last Admin: 09/14/22 08:09 Dose: 650 mg Documented By: MARILYN Cyclobenzaprine HCl (Cyclobenzaprine Hcl 10 Mg Tablet) 10 mg PO BEDTIME [facility] Last Admin: 09/16/22 21:21 Dose: 10 mg Documented By: PAIGE Folic Acid (Folic Acid 1 Mg Tablet) 1 mg PO DAILY [facility] Last Admin: 09/17/22 08:25 Dose: 1 mg Documented By: MICHAELA Hydromorphone HCl (Hydromorphone Hcl 1 Mg/Ml Syringe) 0.5 mg IVPUSH Q4H PRN; Protocol PRN Reason: Pain, Severe (Pain Scale 7-10) Cefepime HCl 2 gm/ Sodium (Chloride) 50 mls @ 100 mls/hr IV Q12H [facility] Last Infusion: 09/17/22 08:29 Dose: 0 mls/hr Documented By: MICHAELA Vancomycin HCl 750 mg/ Sodium (Chloride) 265 mls @ 265 mls/hr IV Q12H [facility] Last Infusion: 09/17/22 09:37 Dose: 0 mls/hr Documented By: MICHAELA Lidocaine (Lidocaine 4 % Patch Adh..Patch) 1 patch TRANSDERMA DAILY [facility] Last Admin: 09/17/22 08:24 Dose: 1 patch Documented By: MICHAELA Melatonin (Melatonin 3 Mg Tablet) 6 mg PO BEDTIME PRN PRN Reason: Insomnia Omeprazole (Omeprazole 20 Mg Capsule.Dr) 20 mg PO DAILY@0630 [facility] Last Admin: 09/17/22 05:33 Dose: 20 mg Documented By: EMILY Ondansetron HCl (Ondansetron Hcl 4 Mg/2 Ml Vial) 4 mg IVPUSH Q8H PRN PRN Reason: Nausea and Vomiting Pharmacy Consult (Consult Rx Perform Med Rec) 1 each MISCELLANE ONCE PRN PRN Reason: Consult order Pharmacy Consult (Consult Rx Etoh Phenob Im/Po) 1 each MISCELLANE ONCE PRN; P rotocol PRN Reason: Consult order Pharmacy Consult (Consult Rx Vancomycin Dosing) 1 each MISCELLANE DAILY PRN PRN Reason: Consult order Sodium Chloride (0.9 % Sodium Chloride Flush 3 Ml Syringe) 3 ml IVFLUSH QSHIFT [facility] Last Admin: 09/17/22 07:22 Dose: 3 ml Documented By: MICHAELA Thiamine HCl (Thiamine Hcl 100 Mg Tablet) 100 mg PO DAILY [facility] Last Admin: 09/17/22 08:24 Dose: 100 mg Documented By: MICHAELA Labs 09/17/22 05:44 09/17/22 05:44 Labs: Laboratory Results - last 24 hr 09/16/22 09/17/22 09/17/22 18:56 05:44 05:44 MCV 87.4 MCH 30.5 MCHC 34.9 RDW 17.4 H Plt Count 164 MPV 11.6 Absolute Nucleated RBC 0.000 Nucleated RBC % (auto) 0.0 Estim Creat Clear Calc 123.7 Estimated GFR > 60 Random Vancomycin 14.5 L Blood Type Antibody Screen 09/17/22 10:23 MCV MCH MCHC RDW Plt Count MPV Absolute Nucleated RBC Nucleated RBC % (auto) Estim Creat Clear Calc Estimated GFR Random Vancomycin Blood Type O Positive Antibody Screen NEGATIVE Microbiology Microbiology Results: Microbiology 09/11/22 17:13 Blood Culture - Final Blood - Venous No growth after 5 days. 09/11/22 16:50 Blood Culture - Final Blood - Venous No growth after 5 days. Assessment and Plan (1) Anemia: Status: Acute (2) Alcohol dependence: Status: Acute (3) Penile lesion: Status: Acute Plan This is a 57-year-old male with history of alcohol dependence and chronic kidney disease, unspecified stage admitted for necrotic ulceration of penis with cellulitis, status post gastric bypass surgery for obesity. Necrotic stage 2 ulceration of the penis with cellulitis continue IV Cefepime/Vanco started 09/11, CRP 11.13 Underwent Sandoval catheter replacement by Dr. Antony had difficult placement due to meatal scarring and erosion of glans plan is for circumcision 09/17, keep patient NPO overnight HIV, chlamydia, gonorrhea and syphilis nonreactive. Follow CRP and after circumcision will narrow antibiotic coverage to by mouth Augmentin Blood cultures negative Acute on chronic kidney disease (unknown baseline)/metabolic acidosis resolved patient is from [place] no baseline available creatinine returned to normal after Sandoval catheter placement likely had obstructive uropathy, bicarb improving, follow BMP Alcohol dependence as per sister drink 1 L daily. no evidence of alcohol withdrawal at this time continue Phenobarb per protocol dc IV thiamine , placed on by mouth thiamine and folic acid(history of gastric bypass) seen by addiction medicine, resources provided Hyponatremia - resolved Normocytic anemia(sister states chronic) Received 1 unit of packed RBC 02/15, 09/16 no acute GI bleed noted Normal B12 folate and iron studies likely due to chronic kidney disease and bone marrow suppresion from etoh use follow CBC Thrombocytopenia likely r/t etoh follow CBC urology rec platelet transfusion prior to procedure Hypoalbuminemia likely due to poor nutrition, LFTs unremarkable , HIV nonreactive, INR 1.2, continue protein shakes. Hypocalcemia due to low albumin DVT ppx -boots Full code attending - dr. luong Pt. requires ongoing hospitalization to treat penile cellulitis, requiring IV antibiotics and plan for circumcision Time Spent With Patient Time: Total time managing care of this patient today ____ minutes. Quality Stroke Does the patient have a stroke diagnosis?: No VTE Prior VTE?: No VTE Risk Level:: Medical - moderate - high VTE Device Contraindication: N/A - Device Ordered VTE Drug Contraindication: Treatment Not Indicated
--- NOTE | 2022-09-17 16:27 | P.CONAN_ITS ---
HPI - Anesthesia Eval Consult details Narrative: 57 yo male admitted for penile lesion. Hx of ETOH abuse with chronic anemia s/p 1 unit PRBCs and cocaine abuse. Urine tox screen was positive for cocaine. FOR[facility]LY [facility], LATER [facility] Active Problems Active Problems: All Active Problems (Updated 09/12/22 @ 10:38 by Sharif Suarez DO) Anemia (Acute) Alcohol dependence (Acute) Cellulitis (Acute) Acute kidney injury (Acute) Urinary tract infection (Acute) Penile lesion (Acute) Past Medical History Medical History Alcohol dependence Chronic kidney disease Surgical History Surgical History S/P bariatric surgery History of Problems with Anesthesia: No Social History Social History Household Members: Children Household Members Other:: son Housing: Apartment Do you presently have visiting nurse or other home services: No Alcohol intake: current Alcohol intake frequency: 3 or more drinks per day Alcohol type: hard liquor Patient Tobacco Use Status: Current everyday Tobacco user Tobacco use type: Cigarette Cigarettes Per Day: 2 Substance Use Type: Crack/Cocaine service: No Current occupational status: employed Meds Allergies Allergy/AdvReac Type Severity Reaction Status Date / Time No Known Allergies Allergy Verified 09/11/22 16:54 Active Medications: Current Medications Acetaminophen (Acetaminophen 325 Mg Tablet) 650 mg PO Q6H PRN PRN Reason: Pain, Mild (Pain Scale 1-3) Last Admin: 09/14/22 08:09 Dose: 650 mg Amoxicillin/Clavulanate Potassium (Amoxicillin/Potassium Clav 875 Mg Tablet) 875 mg PO BID [facility] Cyclobenzaprine HCl (Cyclobenzaprine Hcl 10 Mg Tablet) 10 mg PO BEDTIME [facility] Last Admin: 09/16/22 21:21 Dose: 10 mg Folic Acid (Folic Acid 1 Mg Tablet) 1 mg PO DAILY [facility] Last Admin: 09/17/22 08:25 Dose: 1 mg Hydromorphone HCl (Hydromorphone Hcl 1 Mg/Ml Syringe) 0.5 mg IVPUSH Q4H PRN; Protocol PRN Reason: Pain, Severe (Pain Scale 7-10) Lidocaine (Lidocaine 4 % Patch Adh..Patch) 1 patch TRANSDERMA DAILY [facility] Last Admin: 09/17/22 08:24 Dose: 1 patch Melatonin (Melatonin 3 Mg Tablet) 6 mg PO BEDTIME PRN PRN Reason: Insomnia Omeprazole (Omeprazole 20 Mg Capsule.Dr) 20 mg PO DAILY@0630 [facility] Last Admin: 09/17/22 05:33 Dose: 20 mg Ondansetron HCl (Ondansetron Hcl 4 Mg/2 Ml Vial) 4 mg IVPUSH Q8H PRN PRN Reason: Nausea and Vomiting Pharmacy Consult (Consult Rx Perform Med Rec) 1 each MISCELLANE ONCE PRN PRN Reason: Consult order Pharmacy Consult (Consult Rx Etoh Phenob Im/Po) 1 each MISCELLANE ONCE PRN; Protocol PRN Reason: Consult order Sodium Chloride (0.9 % Sodium Chloride Flush 3 Ml Syringe) 3 ml IVFLUSH QSHIFT [facility] Last Admin: 09/17/22 16:08 Dose: Not Given Thiamine HCl (Thiamine Hcl 100 Mg Tablet) 100 mg PO DAILY [facility] Last Admin: 09/17/22 08:24 Dose: 100 mg Home Medications Medication Instructions Recorded Confirmed Last Taken Type cyclobenzaprine 10 mg tablet 10 mg PO BEDTIME 09/11/22 09/11/22 Unknown History ibuprofen 800 mg tablet 800 mg PO TID 09/11/22 09/11/22 Unknown History lidocaine 5 % topical patch 1 patch topical DAILY 09/11/22 09/11/22 Unknown History Exam Exam Date and Time: September 17, 2022 1627 Height,Weight and Vital Signs: Height 6 ft Weight 90.1 kg Last Vital Signs Temp 98.8 F 09/17/22 15:41 Pulse 66 09/17/22 15:41 Resp 16 09/17/22 15:41 BP 119/83 09/17/22 15:41 Pulse Ox 98 09/17/22 15:41 O2 Del Method Room Air 09/17/22 15:41 Pertinent Lab Results Pertinent Lab Results: Laboratory Tests 09/11/22 09/11/22 09/11/22 15:33 15:33 15:33 WBC 11.0 H RBC 2.55 L Hgb 7.7 L Hct 21.2 L MCV 83.1 MCH 30.2 MCHC 36.3 H RDW 16.1 H Plt Count 138 L MPV 10.7 Immature Gran % (Auto) 0.7 H Neut % (Auto) 79.8 H Lymph % (Auto) 7.3 L [place] % (Auto) 11.1 H Eos % (Auto) 0.5 Baso % (Auto) 0.6 Lymph # (Auto) 0.8 L [place] # (Auto) 1.2 Eos # (Auto) 0.1 Baso # (Auto) 0.1 Abs Immat Gran (auto) 0.08 H Absolute Neuts (auto) 8.8 H Absolute Nucleated RBC 0.000 Nucleated RBC % (auto) 0.0 Smear Path Review ESR 81 H PT INR Sodium Potassium Chloride Carbon Dioxide Anion Gap BUN Creatinine Estim Creat Clear Calc Estimated GFR Random Glucose Lactic Acid Calcium Magnesium Iron TIBC % Saturation Unsat Iron Binding Ferritin Total Bilirubin AST ALT Alkaline Phosphatase C-Reactive Protein Total Protein Albumin Vitamin B12 Folate Urine Color Urine Appearance Urine pH Ur Specific [place] Urine Protein Urine Glucose (UA) Urine Ketones Urine Blood Urine Nitrite Ur Leukocyte Esterase Urine RBC Urine WBC Ur Squamous Epith Cells Urine Bacteria Hyaline Casts Ur Random Sodium Urine Creatinine Random Vancomycin Urine Opiates Screen Urine Fentanyl Screen Ur Barbiturates Screen Ur Phencyclidine Scrn Ur Amphetamines Screen U Benzodiazepines Scrn Urine Cocaine Screen U Marijuana (THC) Screen Ethyl Alcohol T.pallidum Ab (EIA) Nonreactive Chlam trachomat DNA PCR HIV 1&2 Ab/P24 Ag 4thGn N.gonorrhoeae DNA (PCR) Blood Type Antibody Screen Crossmatch 09/11/22 09/11/22 09/11/22 15:34 16:30 16:50 WBC RBC Hgb Hct MCV MCH MCHC RDW Plt Count MPV Immature Gran % (Auto) Neut % (Auto) Lymph % (Auto) [place] % (Auto) Eos % (Auto) Baso % (Auto) Lymph # (Auto) [place] # (Auto) Eos # (Auto) Baso # (Auto) Abs Immat Gran (auto) Absolute Neuts (auto) Absolute Nucleated RBC Nucleated RBC % (auto) Smear Path Review ESR PT INR Sodium 131 L Potassium 3.5 Chloride 103 Carbon Dioxide 15 L Anion Gap 17 BUN 52 H Creatinine 3.33 H Estim Creat Clear Calc 27.3 Estimated GFR 19 Random Glucose 77 Lactic Acid 1.8 Calcium 6.9 L Magnesium 1.6 Iron TIBC % Saturation Unsat Iron Binding Ferritin Total Bilirubin 1.0 AST 52 H ALT 25 Alkaline Phosphatase 217 H C-Reactive Protein 12.28 H Total Protein 5.8 L Albumin 2.1 L Vitamin B12 Folate Urine Color Urine Appearance Urine pH Ur Specific [place] Urine Protein Urine Glucose (UA) Urine Ketones Urine Blood Urine Nitrite Ur Leukocyte Esterase Urine RBC Urine WBC Ur Squamous Epith Cells Urine Bacteria Hyaline Casts Ur Random Sodium Urine Creatinine Random Vancomycin Urine Opiates Screen Urine Fentanyl Screen Ur Barbiturates Screen Ur Phencyclidine Scrn Ur Amphetamines Screen U Benzodiazepines Scrn Urine Cocaine Screen U Marijuana (THC) Screen Ethyl Alcohol 87 T.pallidum Ab (EIA) Chlam trachomat DNA PCR NOT DETECTED HIV 1&2 Ab/P24 Ag 4thGn N.gonorrhoeae DNA (PCR) NOT DETECTED Blood Type Antibody Screen Crossmatch 09/11/22 09/11/22 09/11/22 18:55 18:55 18:55 WBC RBC Hgb Hct MCV MCH MCHC RDW Plt Count MPV Immature Gran % (Auto) Neut % (Auto) Lymph % (Auto) [place] % (Auto) Eos % (Auto) Baso % (Auto) Lymph # (Auto) [place] # (Auto) Eos # (Auto) Baso # (Auto) Abs Immat Gran (auto) Absolute Neuts (auto) Absolute Nucleated RBC Nucleated RBC % (auto) Smear Path Review ESR PT INR Sodium Potassium Chloride Carbon Dioxide Anion Gap BUN Creatinine Estim Creat Clear Calc Estimated GFR Random Glucose Lactic Acid Calcium Magnesium Iron TIBC % Saturation Unsat Iron Binding Ferritin Total Bilirubin AST ALT Alkaline Phosphatase C-Reactive Protein Total Protein Albumin Vitamin B12 Folate Urine Color Yellow Urine Appearance Clear Urine pH 5.5 Ur Specific [place] <= 1.005 Urine Protein Negative Urine Glucose (UA) Negative Urine Ketones Negative Urine Blood Small (1+) H Urine Nitrite Negative Ur Leukocyte Esterase Large (3+) H Urine RBC 0-2 Urine WBC 21-50 H Ur Squamous Epith Cells 0-2 Urine Bacteria None Seen Hyaline Casts 0-2 Ur Random Sodium 53.0 Urine Creatinine 22.11 Random Vancomycin Urine Opiates Screen Not Detected Urine Fentanyl Screen Not Detected Ur Barbiturates Screen Not Detected Ur Phencyclidine Scrn Not Detected Ur Amphetamines Screen Not Detected U Benzodiazepines Scrn Not Detected Urine Cocaine Screen POSITIVE H U Marijuana (THC) Screen Not Detected Ethyl Alcohol T.pallidum Ab (EIA) Chlam trachomat DNA PCR HIV 1&2 Ab/P24 Ag 4thGn N.gonorrhoeae DNA (PCR) Blood Type Antibody Screen Crossmatch 09/11/22 09/11/22 09/12/22 19:43 19:43 06:15 WBC 8.5 RBC 2.42 L Hgb 7.3 L Hct 20.2 L* MCV 83.5 MCH 30.2 MCHC 36.1 H RDW 16.0 Plt Count 129 L MPV 11.1 Immature Gran % (Auto) 1.4 H Neut % (Auto) 79.0 H Lymph % (Auto) 8.0 L [place] % (Auto) 10.1 Eos % (Auto) 0.7 Baso % (Auto) 0.8 Lymph # (Auto) 0.7 L [place] # (Auto) 0.9 Eos # (Auto) 0.1 Baso # (Auto) 0.1 Abs Immat Gran (auto) 0.12 H Absolute Neuts (auto) 6.7 Absolute Nucleated RBC 0.000 Nucleated RBC % (auto) 0.0 Smear Path Review ESR PT INR Sodium Potassium Chloride Carbon Dioxide Anion Gap BUN Creatinine Estim Creat Clear Calc Estimated GFR Random Glucose Lactic Acid Calcium Magnesium Iron Cancelled TIBC Cancelled % Saturation Cancelled Unsat Iron Binding Cancelled Ferritin Cancelled Total Bilirubin AST ALT Alkaline Phosphatase C-Reactive Protein 11.13 H Total Protein Albumin Vitamin B12 > 2000 H Folate 4.5 Urine Color Urine Appearance Urine pH Ur Specific [place] Urine Protein Urine Glucose (UA) Urine Ketones Urine Blood Urine Nitrite Ur Leukocyte Esterase Urine RBC Urine WBC Ur Squamous Epith Cells Urine Bacteria Hyaline Casts Ur Random Sodium Urine Creatinine Random Vancomycin Urine Opiates Screen Urine Fentanyl Screen Ur Barbiturates Screen Ur Phencyclidine Scrn Ur Amphetamines Screen U Benzodiazepines Scrn Urine Cocaine Screen U Marijuana (THC) Screen Ethyl Alcohol T.pallidum Ab (EIA) Chlam trachomat DNA PCR HIV 1&2 Ab/P24 Ag 4thGn N.gonorrhoeae DNA (PCR) Blood Type Antibody Screen Crossmatch 09/12/22 09/12/22 09/13/22 06:15 06:15 05:48 WBC RBC Hgb Hct MCV MCH MCHC RDW Plt Count MPV Immature Gran % (Auto) Neut % (Auto) Lymph % (Auto) [place] % (Auto) Eos % (Auto) Baso % (Auto) Lymph # (Auto) [place] # (Auto) Eos # (Auto) Baso # (Auto) Abs Immat Gran (auto) Absolute Neuts (auto) Absolute Nucleated RBC Nucleated RBC % (auto) Smear Path Review ESR PT INR Sodium 139 Potassium 3.2 L Chloride 112 H Carbon Dioxide 16 L Anion Gap 14 BUN 45 H Creatinine 2.48 H Cancelled 1.85 H Estim Creat Clear Calc 36.9 Cancelled 49.5 Estimated GFR 27 Cancelled 38 Random Glucose 72 Lactic Acid Calcium 6.5 L Magnesium Iron TIBC % Saturation Unsat Iron Binding Ferritin Total Bilirubin AST ALT Alkaline Phosphatase C-Reactive Protein Total Protein Albumin Vitamin B12 Folate Urine Color Urine Appearance Urine pH Ur Specific [place] Urine Protein Urine Glucose (UA) Urine Ketones Urine Blood Urine Nitrite Ur Leukocyte Esterase Urine RBC Urine WBC Ur Squamous Epith Cells Urine Bacteria Hyaline Casts Ur Random Sodium Urine Creatinine Random Vancomycin Urine Opiates Screen Urine Fentanyl Screen Ur Barbiturates Screen Ur Phencyclidine Scrn Ur Amphetamines Screen U Benzodiazepines Scrn Urine Cocaine Screen U Marijuana (THC) Screen Ethyl Alcohol T.pallidum Ab (EIA) Chlam trachomat DNA PCR HIV 1&2 Ab/P24 Ag 4thGn N.gonorrhoeae DNA (PCR) Blood Type Antibody Screen Crossmatch 09/13/22 09/13/22 09/13/22 10:41 10:41 10:41 WBC RBC Hgb Hct MCV MCH MCHC RDW Plt Count MPV Immature Gran % (Auto) Neut % (Auto) Lymph % (Auto) [place] % (Auto) Eos % (Auto) Baso % (Auto) Lymph # (Auto) [place] # (Auto) Eos # (Auto) Baso # (Auto) Abs Immat Gran (auto) Absolute Neuts (auto) Absolute Nucleated RBC Nucleated RBC % (auto) Smear Path Review ESR PT INR Sodium Potassium Chloride Carbon Dioxide Anion Gap BUN Creatinine Estim Creat Clear Calc Estimated GFR Random Glucose Lactic Acid Calcium Magnesium Iron 109 TIBC 134 L % Saturation 81 H Unsat Iron Binding < 25 Ferritin 157 Total Bilirubin AST ALT Alkaline Phosphatase C-Reactive Protein Total Protein Albumin Vitamin B12 Folate Urine Color Urine Appearance Urine pH Ur Specific [place] Urine Protein Urine Glucose (UA) Urine Ketones Urine Blood Urine Nitrite Ur Leukocyte Esterase Urine RBC Urine WBC Ur Squamous Epith Cells Urine Bacteria Hyaline Casts Ur Random Sodium Urine Creatinine Random Vancomycin Urine Opiates Screen Urine Fentanyl Screen Ur Barbiturates Screen Ur Phencyclidine Scrn Ur Amphetamines Screen U Benzodiazepines Scrn Urine Cocaine Screen U Marijuana (THC) Screen Ethyl Alcohol T.pallidum Ab (EIA) Chlam trachomat DNA PCR HIV 1&2 Ab/P24 Ag 4thGn Nonreactive N.gonorrhoeae DNA (PCR) Blood Type O Positive Antibody Screen NEGATIVE Crossmatch See Detail 09/13/22 09/14/22 09/14/22 20:02 05:43 05:43 WBC 9.1 RBC 2.70 L Hgb 8.1 L Hct 23.7 L MCV 87.8 MCH 30.0 MCHC 34.2 RDW 18.6 H Plt Count 154 L MPV 12.3 Immature Gran % (Auto) Neut % (Auto) Lymph % (Auto) [place] % (Auto) Eos % (Auto) Baso % (Auto) Lymph # (Auto) [place] # (Auto) Eos # (Auto) Baso # (Auto) Abs Immat Gran (auto) Absolute Neuts (auto) Absolute Nucleated RBC 0.020 H Nucleated RBC % (auto) 0.2 Smear Path Review ESR PT INR Sodium Potassium Chloride Carbon Dioxide Anion Gap BUN Creatinine Cancelled Estim Creat Clear Calc Cancelled Estimated GFR Cancelled Random Glucose Lactic Acid Calcium Magnesium Iron TIBC % Saturation Unsat Iron Binding Ferritin Total Bilirubin AST ALT Alkaline Phosphatase C-Reactive Protein Total Protein Albumin Vitamin B12 Folate Urine Color Urine Appearance Urine pH Ur Specific [place] Urine Protein Urine Glucose (UA) Urine Ketones Urine Blood Urine Nitrite Ur Leukocyte Esterase Urine RBC Urine WBC Ur Squamous Epith Cells Urine Bacteria Hyaline Casts Ur Random Sodium Urine Creatinine Random Vancomycin 10.3 L Urine Opiates Screen Urine Fentanyl Screen Ur Barbiturates Screen Ur Phencyclidine Scrn Ur Amphetamines Screen U Benzodiazepines Scrn Urine Cocaine Screen U Marijuana (THC) Screen Ethyl Alcohol T.pallidum Ab (EIA) Chlam trachomat DNA PCR HIV 1&2 Ab/P24 Ag 4thGn N.gonorrhoeae DNA (PCR) Blood Type Antibody Screen Crossmatch 09/14/22 09/14/22 09/14/22 05:43 05:43 20:11 WBC RBC Hgb Hct MCV MCH MCHC RDW Plt Count MPV Immature Gran % (Auto) Neut % (Auto) Lymph % (Auto) [place] % (Auto) Eos % (Auto) Baso % (Auto) Lymph # (Auto) [place] # (Auto) Eos # (Auto) Baso # (Auto) Abs Immat Gran (auto) Absolute Neuts (auto) Absolute Nucleated RBC Nucleated RBC % (auto) Smear Path Review ESR PT 13.9 H INR 1.2 H Sodium 138 Potassium 3.4 Chloride 114 H Carbon Dioxide 17 L Anion Gap 10 L BUN 35 H Creatinine 1.27 Estim Creat Clear Calc 72.1 Estimated GFR 59 Random Glucose 77 Lactic Acid Calcium 6.9 L D Magnesium Iron TIBC % Saturation Unsat Iron Binding Ferritin Total Bilirubin AST ALT Alkaline Phosphatase C-Reactive Protein Total Protein Albumin Vitamin B12 Folate Urine Color Urine Appearance Urine pH Ur Specific [place] Urine Protein Urine Glucose (UA) Urine Ketones Urine Blood Urine Nitrite Ur Leukocyte Esterase Urine RBC Urine WBC Ur Squamous Epith Cells Urine Bacteria Hyaline Casts Ur Random Sodium Urine Creatinine Random Vancomycin 11.4 L Urine Opiates Screen Urine Fentanyl Screen Ur Barbiturates Screen Ur Phencyclidine Scrn Ur Amphetamines Screen U Benzodiazepines Scrn Urine Cocaine Screen U Marijuana (THC) Screen Ethyl Alcohol T.pallidum Ab (EIA) Chlam trachomat DNA PCR HIV 1&2 Ab/P24 Ag 4thGn N.gonorrhoeae DNA (PCR) Blood Type Antibody Screen Crossmatch 09/15/22 09/15/22 09/16/22 06:07 19:43 05:43 WBC 9.0 RBC 2.37 L Hgb 7.3 L Hct 20.5 L* MCV 86.5 MCH 30.8 MCHC 35.6 RDW 17.6 H Plt Count 142 L MPV 11.6 Immature Gran % (Auto) Neut % (Auto) Lymph % (Auto) [place] % (Auto) Eos % (Auto) Baso % (Auto) Lymph # (Auto) [place] # (Auto) Eos # (Auto) Baso # (Auto) Abs Immat Gran (auto) Absolute Neuts (auto) Absolute Nucleated RBC 0.000 Nucleated RBC % (auto) 0.0 Smear Path Review ESR PT INR Sodium Potassium Chloride Carbon Dioxide Anion Gap BUN Creatinine 0.90 Estim Creat Clear Calc 101.7 Estimated GFR > 60 Random Glucose Lactic Acid Calcium Magnesium Iron TIBC % Saturation Unsat Iron Binding Ferritin Total Bilirubin AST ALT Alkaline Phosphatase C-Reactive Protein Total Protein Albumin Vitamin B12 Folate Urine Color Urine Appearance Urine pH Ur Specific [place] Urine Protein Urine Glucose (UA) Urine Ketones Urine Blood Urine Nitrite Ur Leukocyte Esterase Urine RBC Urine WBC Ur Squamous Epith Cells Urine Bacteria Hyaline Casts Ur Random Sodium Urine Creatinine Random Vancomycin 12.2 L Urine Opiates Screen Urine Fentanyl Screen Ur Barbiturates Screen Ur Phencyclidine Scrn Ur Amphetamines Screen U Benzodiazepines Scrn Urine Cocaine Screen U Marijuana (THC) Screen Ethyl Alcohol T.pallidum Ab (EIA) Chlam trachomat DNA PCR HIV 1&2 Ab/P24 Ag 4thGn N.gonorrhoeae DNA (PCR) Blood Type Antibody Screen Crossmatch 09/16/22 09/16/22 09/17/22 05:43 18:56 05:44 WBC RBC Hgb Hct MCV MCH MCHC RDW Plt Count MPV Immature Gran % (Auto) Neut % (Auto) Lymph % (Auto) [place] % (Auto) Eos % (Auto) Baso % (Auto) Lymph # (Auto) [place] # (Auto) Eos # (Auto) Baso # (Auto) Abs Immat Gran (auto) Absolute Neuts (auto) Absolute Nucleated RBC Nucleated RBC % (auto) Smear Path Review ESR PT INR Sodium 136 Potassium 3.4 Chloride 112 H Carbon Dioxide 20 L Anion Gap 7 L BUN 18 H Creatinine 0.77 0.74 Estim Creat Clear Calc 118.9 123.7 Estimated GFR > 60 > 60 Random Glucose 69 Lactic Acid Calcium 6.6 L Magnesium Iron TIBC % Saturation Unsat Iron Binding Ferritin Total Bilirubin AST ALT Alkaline Phosphatase C-Reactive Protein Total Protein Albumin Vitamin B12 Folate Urine Color Urine Appearance Urine pH Ur Specific [place] Urine Protein Urine Glucose (UA) Urine Ketones Urine Blood Urine Nitrite Ur Leukocyte Esterase Urine RBC Urine WBC Ur Squamous Epith Cells Urine Bacteria Hyaline Casts Ur Random Sodium Urine Creatinine Random Vancomycin 14.5 L Urine Opiates Screen Urine Fentanyl Screen Ur Barbiturates Screen Ur Phencyclidine Scrn Ur Amphetamines Screen U Benzodiazepines Scrn Urine Cocaine Screen U Marijuana (THC) Screen Ethyl Alcohol T.pallidum Ab (EIA) Chlam trachomat DNA PCR HIV 1&2 Ab/P24 Ag 4thGn N.gonorrhoeae DNA (PCR) Blood Type Antibody Screen Crossmatch 09/17/22 09/17/22 05:44 10:23 WBC 9.9 RBC 2.69 L Hgb 8.2 L Hct 23.5 L MCV 87.4 MCH 30.5 MCHC 34.9 RDW 17.4 H Plt Count 164 MPV 11.6 Immature Gran % (Auto) Neut % (Auto) Lymph % (Auto) [place] % (Auto) Eos % (Auto) Baso % (Auto) Lymph # (Auto) [place] # (Auto) Eos # (Auto) Baso # (Auto) Abs Immat Gran (auto) Absolute Neuts (auto) Absolute Nucleated RBC 0.000 Nucleated RBC % (auto) 0.0 Smear Path Review ESR PT INR Sodium Potassium Chloride Carbon Dioxide Anion Gap BUN Creatinine Estim Creat Clear Calc Estimated GFR Random Glucose Lactic Acid Calcium Magnesium Iron TIBC % Saturation Unsat Iron Binding Ferritin Total Bilirubin AST ALT Alkaline Phosphatase C-Reactive Protein Total Protein Albumin Vitamin B12 Folate Urine Color Urine Appearance Urine pH Ur Specific [place] Urine Protein Urine Glucose (UA) Urine Ketones Urine Blood Urine Nitrite Ur Leukocyte Esterase Urine RBC Urine WBC Ur Squamous Epith Cells Urine Bacteria Hyaline Casts Ur Random Sodium Urine Creatinine Random Vancomycin Urine Opiates Screen Urine Fentanyl Screen Ur Barbiturates Screen Ur Phencyclidine Scrn Ur Amphetamines Screen U Benzodiazepines Scrn Urine Cocaine Screen U Marijuana (THC) Screen Ethyl Alcohol T.pallidum Ab (EIA) Chlam trachomat DNA PCR HIV 1&2 Ab/P24 Ag 4thGn N.gonorrhoeae DNA (PCR) Blood Type O Positive Antibody Screen NEGATIVE Crossmatch Airway Mallampati Class: II TM Dist: >3cm Neck ROM: Full Loose/Missing/Broken Teeth: Yes (Poor dentition) Heart: S1S2 Lungs: CTAB Assessment and Plan Assessment Anesthesia Assessment: Anesthesia Plan Discussed and Chart Reviewed Final Anesthetic Review History of Problems with Anesthesia: No NPO: Yes ASA Class: III Final Preanesthetic Review: No Changes in Pt Med Stat, Meds/Allgs Chart Reviewed, Consent Obtained/Reviewed and Anes Risks/Benef Reviewed Patient Risk: Intermediate Procedure Risk: Low Anesthetic Plan Anesthetic Plan: GA and Agree w/ Assess. and Plan Disposition: Standard PACU
--- NOTE | 2022-09-17 16:36 | MHC.SHP ---
Pre-Procedural Eval Section A Date of Service: 09/17/22 The patient is an INPATIENT: No Changes since office visit: No Cold of Flu in the past 2 weeks, No New Medical Problems, No Changes in Medication and No Patient answered all questions The History & Physical has been completed within 30 days and I have reviewed it.: Yes Section B Chief Complaint: Penile ulcer Details of Present Illness: circumcision Allergies: Allergies Allergy/AdvReac Type Severity Reaction Status Date / Time No Known Allergies Allergy Verified 09/11/22 16:54 Plan Diagnosis/Plan: Unchanged (circumcision) I have reviewed the history and physical and performed a pertinent physical examination on my patient. No changes have occurred unless specified. Time Spent With Patient Time: Total time managing care of this patient today ____ minutes.
--- NOTE | 2022-09-17 18:01 | W.PM.OPN ---
Operative Note Operative Note Date of Service: 09/17/22 Narrative: PreOperative Diagnosis: phimosis with dorsal erosion of penile shaft skin by penile glans Post Operative Diagnosis: same Procedure: penile debridement, penile degloving, circumcision, Penile plastics reconstruction Surgeon: Dr Frank Antony Anesthesia: General Indications for procedure: presentation through emergency room with erosion of dorsal penile shaft skin by glans. Leiva catheter placed. Antibiotics have been completed for 3-4 days Procedure: After informed consent was verified the patient was brought to the operating room and placed in a supine position. Anesthesia was administered per protocol. The patient was prepped and draped sterile fashion. Safety pause time-out was performed. A penile ring block was performed using 1% lidocaine with no epinephrine. Approximately 8 cc. The glans of the penis had fully eroded through the dorsum of the penile shaft skin. The redundant foreskin was elevated and removed using curved Ferrer scissors. Bleeding areas were addressed. The remaining penile shaft skin was degloved from the penis Using Metzenbaum scissors in the avascular plane. There appeared to be a significant hematoma in midline of the proximal portion of the penis by the bulbar urethra. This was a evacuated and the area irrigated. The skin around the ventral surface of the penis had been thickened with edema and reactive fat. This was resected using Metzenbaum scissors in order to allow the remaining shaft skin to stretch and provided circumferential coverage on the penile shaft. The edges around the eroded skin on the dorsal aspect of the penile shaft were sharply resected. A 3-0 chromic was used to reapproximate the distal corners of the penile shaft skin and this could be done without excessive tension. The suture was divided and a Alexander drain was placed in the dependant portion on the scrotum allowing drainage from the penile shaft. It was clear that the dorsal skin edges would come together running down the middle of the dorsum of the penis. These were reapproximated using a combination of interrupted and vertical mattress sutures in order to minimize tension on the incision. 3-0 chromic was used. Reapproximation between the shaft skin edge and the glans was then completed with 3-0 chromic used primarily. There was a small area on the left dorsal surface of the glans where the sulcus had been obliterated. This was left uncovered to heal by secondary intention. At the completion of the procedure there was adequate hemostasis. The incision was washed and dried. Antibiotic cream was applied to the incision. A Maria Luisa wrap was applied followed by a Coban dressing. Xeroform gauze had been used to cover antibiotic ointment. The Katerin drain was sewn on to fluff bandages and mesh pants placed. He tolerated the procedure well and was extubated in the room and transferred in stable condition to the recovery area. Pathology: Foreskin Drains: Alexander
[2022-09-17] MEDS: Cyclobenzaprine HCl 10 MG TABLET PO (20:16)
[2022-09-17] MEDS: Amoxicillin/Potassium Clav 875 MG TABLET PO (20:16)
[2022-09-17] MEDS: HYDROmorphone HCl 1 MG/ML SYRINGE 0.5 MG IVPUSH (20:17)
[2022-09-17] MEDS: traMADoL HCL 50 MG TABLET PO (23:20)
[2022-09-18] MEDS: HYDROmorphone HCl 1 MG/ML SYRINGE 0.5 MG IVPUSH ×3 (00:56→19:56)
[2022-09-18 03:25] VITALS: BP 108/67; PULSE 70; RESP 16; TEMP 36.2; O2SAT 99
[2022-09-18] MEDS: Omeprazole 20 MG CAPSULE.DR PO (06:24)
[2022-09-18 07:09] LABS: Anion Gap 10 (12-20); Blood Urea Nitrogen 13 mg/dL (9-16); C Reactive Protein 1.06 mg/dL (< or = 0.50); Calcium 6.3 mg/dL (8.4-10.2); Carbon Dioxide 21 mmol/L (22-29); Chloride 112 mmol/L (96-108); Creatinine Clr Calc Pharmacy 122.1; Estimated Glomerular Filt Rate > 60; Glucose Random 73 mg/dL (60-115); Potassium 3.6 mmol/L (3.3-5.1); Sodium 139 mmol/L (135-145)
[2022-09-18 08:00] VITALS: BP 117/72; PULSE 69; RESP 18; TEMP 36.6; O2SAT 97
[2022-09-18] MEDS: 0.9 % Sodium Chloride Flush 3 ML SYRINGE IVFLUSH ×3 (08:02→19:56)
[2022-09-18] MEDS: Lidocaine 4 % Patch ADH..PATCH 1 PATCH TRANSDERMA (08:03)
[2022-09-18] MEDS: Thiamine HCL 100 MG TABLET PO (08:03)
[2022-09-18] MEDS: Amoxicillin/Potassium Clav 875 MG TABLET PO ×2 (08:03→19:55)
[2022-09-18] MEDS: Folic Acid 1 MG TABLET PO (08:09)
[2022-09-18 12:00] VITALS: BP 99/71; PULSE 74; RESP 18; TEMP 36.5; O2SAT 95
--- NOTE | 2022-09-18 12:08 | HO.PM.IMPN ---
Subjective Subjective Date of Service: 09/18/22 Interval History: seen and examined this morning follow up for penile lesion s/p penile debridement, degloving and circumcision yesterday no overnight events having pain at surgical site today which makes moving difficult. no other complaints Review of Systems Review of Systems: Yes all other systems are reviewed and are negative Constitutional Constitutional: Denies chills and Denies fever(s) ENT Ears, Nose, Mouth, and Throat: Denies dizziness Cardiovascular Cardiovascular: Denies chest pain, Denies palpitations and Denies dyspnea Respiratory Respiratory: Denies cough and Denies dyspnea Gastrointestinal Gastrointestinal: Denies abdominal pain, Denies nausea and Denies vomiting Neurologic Neurologic: Denies dizziness Endocrine Endocrine: Denies palpitations Physical Exam Vital Signs: Vital Signs: Last Vital Signs Temp 97.8 F 09/18/22 08:00 Pulse 69 09/18/22 08:00 Resp 18 09/18/22 08:00 BP 117/72 09/18/22 08:00 Pulse Ox 97 09/18/22 08:00 O2 Del Method Room Air 09/18/22 08:00 O2 Flow Rate 2 09/18/22 03:25 BMI result Body Mass Index 26.9 Const: General: cooperative, comfortable, no acute distress, alert and awake Nutritional Appearance: average body habitus Orientation/consciousness: patient oriented x3 Resp: Other: left basilar crackles Effort & Inspection: normal respiratory effort, able to speak in complete sentences, no respiratory distress and no use of accessory muscles Cardio: Rate: regular rate Heart sounds: S1 normal heart sound present and S2 normal heart sound present GI: Inspection: No distended Palpation (GI): Soft to palpation and nontender : Other: sandoval in place draining yellow urine penis covered in dressing with some mild staining patricia drain in place Neuro: General: patient oriented x3, moves all extremities and CN's II-XI intact bilaterally Extrem: Other: trace lower extremity edema Objective Data Active Medications Acetaminophen (Acetaminophen 325 Mg Tablet) 650 mg PO Q6H PRN PRN Reason: Pain, Mild (Pain Scale 1-3) Last Admin: 09/14/22 08:09 Dose: 650 mg Documented By: MARILYN Amoxicillin/Clavulanate Potassium (Amoxicillin/Potassium Clav 875 Mg Tablet) 875 mg PO BID [facility] Last Admin: 09/18/22 08:03 Dose: 875 mg Documented By: DIEGO Cyclobenzaprine HCl (Cyclobenzaprine Hcl 10 Mg Tablet) 10 mg PO BEDTIME [facility] Last Admin: 09/17/22 20:16 Dose: 10 mg Documented By: KENN Folic Acid (Folic Acid 1 Mg Tablet) 1 mg PO DAILY [facility] Last Admin: 09/18/22 08:09 Dose: 1 mg Documented By: DIEGO Hydromorphone HCl (Hydromorphone Hcl 1 Mg/Ml Syringe) 0.5 mg IVPUSH Q4H PRN; Protocol PRN Reason: Pain, Severe (Pain Scale 7-10) Last Admin: 09/18/22 08:01 Dose: 0.5 mg Documented By: DIEGO Lidocaine (Lidocaine 4 % Patch Adh..Patch) 1 patch TRANSDERMA DAILY [facility] Last Admin: 09/18/22 08:03 Dose: 1 patch Documented By: DIEGO Melatonin (Melatonin 3 Mg Tablet) 6 mg PO BEDTIME PRN PRN Reason: Insomnia Omeprazole (Omeprazole 20 Mg Capsule.Dr) 20 mg PO DAILY@0630 [facility] Last Admin: 09/18/22 06:24 Dose: 20 mg Documented By: KENN Ondansetron HCl (Ondansetron Hcl 4 Mg/2 Ml Vial) 4 mg IVPUSH Q8H PRN PRN Reason: Nausea and Vomiting Pharmacy Consult (Consult Rx Perform Med Rec) 1 each MISCELLANE ONCE PRN PRN Reason: Consult order Pharmacy Consult (Consult Rx Etoh Phenob Im/Po) 1 each MISCELLANE ONCE PRN; Protocol PRN Reason: Consult order Sodium Chloride (0.9 % Sodium Chloride Flush 3 Ml Syringe) 3 ml IVFLUSH QSHIFT [facility] Last Admin: 09/18/22 08:02 Dose: 3 ml Documented By: DIEGO Thiamine HCl (Thiamine Hcl 100 Mg Tablet) 100 mg PO DAILY [facility] Last Admin: 09/18/22 08:03 Dose: 100 mg Documented By: DIEGO Tramadol HCl (Tramadol Hcl 50 Mg Tablet) 50 mg PO Q6H PRN PRN Reason: Pain, Moderate(Pain Scale 4-6) Last Admin: 09/17/22 23:20 Dose: 50 mg Documented By: KENN Labs 09/17/22 05:44 06/03/23 05:37 Labs: Laboratory Results - last 24 hr 09/17/22 09/18/22 10:23 05:37 Anion Gap 10 L Estim Creat Clear Calc 122.1 Estimated GFR > 60 Random Glucose 73 Calcium 6.3 L C-Reactive Protein 1.06 H Blood Type O Positive Antibody Screen NEGATIVE Assessment and Plan (1) Penile lesion: Status: Acute (2) Anemia: Status: Acute Plan This is a 57-year-old male with history of alcohol dependence and chronic kidney disease, unspecified stage admitted for necrotic ulceration of penis with cellulitis, status post gastric bypass surgery for obesity. Necrotic stage 2 ulceration of the penis with cellulitis continue IV Cefepime/Vanco started 09/11, CRP 11.13 Underwent Sandoval catheter replacement by Dr. Antony had difficult placement due to meatal scarring and erosion of glans HIV, chlamydia, gonorrhea and syphilis nonreactive. Blood cultures negative CRP down to 1 s/p penile debridement, degloving, circumcision and resconstruction 09/17 - plan for dressing change Tuesday Initially treated with IV vanco/cefepime, will transition to po Augmentin Acute on chronic kidney disease (unknown baseline)/metabolic acidosis resolved patient is from [place] no baseline available creatinine returned to normal after Sandoval catheter placement likely had obstructive uropathy, bicarb improving Alcohol dependence as per sister drink 1 L daily. no evidence of alcohol withdrawal at this time s/p Phenobarb protocol continue thiamine and folic acid (history of gastric bypass) seen by addiction medicine, resources provided Hyponatremia - resolved Normocytic anemia(sister states chronic) Received 1 unit of packed RBC 02/15, 09/16 no acute GI bleed noted Normal B12 folate and iron studies likely due to chronic kidney disease and bone marrow suppresion from etoh use follow CBC Thrombocytopenia likely r/t etoh follow CBC urology rec platelet transfusion prior to procedure, received 1 unit Hypoalbuminemia likely due to poor nutrition, LFTs unremarkable , HIV nonreactive, INR 1.2, continue protein shakes. Hypocalcemia due to low albumin DVT ppx -boots Full code attending - Dr. Chou will need PT eval on Tuesday Pt. requires ongoing hospitalization to treat penile cellulitis, requiring IV pain management, post-surgical care and PT eval for safe dispo Time Spent With Patient Time: Total time managing care of this patient today ____ minutes. Quality Stroke Does the patient have a stroke diagnosis?: No VTE Prior VTE?: No VTE Risk Level:: Medical - moderate - high VTE Device Contraindication: N/A - Device Ordered VTE Drug Contraindication: Treatment Not Indicated
[2022-09-18 15:36] VITALS: BP 118/73; PULSE 69; RESP 16; TEMP 37.1; O2SAT 97
[2022-09-18 19:41] VITALS: BP 116/69; PULSE 83; RESP 20; TEMP 36.7; O2SAT 96
[2022-09-18] MEDS: Cyclobenzaprine HCl 10 MG TABLET PO (19:56)
--- NOTE | 2022-09-18 20:38 | HO.POSTANES ---
Post Anesthesia Evaluation Post Anesthesia Evaluation Date of Service: 09/18/22 Vital Signs: Vital Signs Temp Pulse Resp BP Pulse Ox O2 Del Method 09/18/22 19:41 98.1 F 83 20 116/69 96 Room Air 09/18/22 15:36 98.8 F 69 16 118/73 97 Room Air 09/18/22 12:00 97.7 F 74 18 99/71 95 Room Air Anesthesia: General LMA Mental Status: Awake Pain Control: Satisfactory Nausea/Vomiting: None Hydration: Adequate Anesthesia-Related Issues: No Anes. Related Issues
[2022-09-18] MEDS: Melatonin 3 MG TABLET 6 MG PO (22:41)
[2022-09-18] MEDS: traMADoL HCL 50 MG TABLET PO (22:41)
[2022-09-19] VITALS: BP 97/61; PULSE 73; RESP 14; TEMP 36.8; O2SAT 96
[2022-09-19 03:13] VITALS: BP 108/60; PULSE 74; RESP 16; TEMP 36.8; O2SAT 96
[2022-09-19] MEDS: Omeprazole 20 MG CAPSULE.DR PO (06:00)
[2022-09-19] MEDS: HYDROmorphone HCl 1 MG/ML SYRINGE 0.5 MG IVPUSH ×3 (06:00→21:25)
[2022-09-19] MEDS: ondansetron HCL 4 MG/2 ML VIAL IVPUSH (06:07)
[2022-09-19 06:19] LABS: Hematocrit 23.5 % (42.0-52.0); Hemoglobin 7.9 g/dl (14.0-18.0); Mean Corpuscular HGB Conc 33.6 g/dl (31.0-36.0); Mean Corpuscular Hemoglobin 30.3 pg (27.0-33.0); Mean Platelet Volume 11.7 fL (9.4-12.4); Platelet Count 152 X10*3/uL (160-400); Red Blood Count 2.61 X10*6/uL (4.60-5.80); Red Cell Distribution Width 18.1 % (11.0-16.0); White Blood Count 9.4 X10*3/uL (4.8-10.8)
[2022-09-19 06:53] LABS: Anion Gap 7 (12-20); Blood Urea Nitrogen 11 mg/dL (9-16); Calcium 6.3 mg/dL (8.4-10.2); Carbon Dioxide 22 mmol/L (22-29); Chloride 112 mmol/L (96-108); Creatinine Clr Calc Pharmacy 134.7; Estimated Glomerular Filt Rate > 60; Glucose Random 75 mg/dL (60-115); Sodium 137 mmol/L (135-145)
[2022-09-19 07:43] VITALS: BP 103/63; PULSE 66; RESP 18; TEMP 36.3; O2SAT 95
[2022-09-19] MEDS: Thiamine HCL 100 MG TABLET PO (07:56)
[2022-09-19] MEDS: 0.9 % Sodium Chloride Flush 3 ML SYRINGE IVFLUSH ×3 (07:57→21:33)
[2022-09-19] MEDS: Lidocaine 4 % Patch ADH..PATCH 1 PATCH TRANSDERMA (07:57)
[2022-09-19] MEDS: Folic Acid 1 MG TABLET PO (07:57)
[2022-09-19] MEDS: Amoxicillin/Potassium Clav 875 MG TABLET PO ×2 (07:57→21:24)
--- NOTE | 2022-09-19 08:03 | PC.NURSE ---
Upon morning assessment patricia drain noted to be out of place. Carl Anne notified pt without complaints no new orders , will monitor.
--- NOTE | 2022-09-19 13:28 | P.PNIM_ITS ---
Subjective Subjective Date of Service: 09/19/22 Interval History: seen and examined this morning follow up for penile ulcer no overnight events having pain at surgical site with movement Review of Systems Review of Systems: Yes all other systems are reviewed and are negative Constitutional Constitutional: Denies chills and Denies fever(s) ENT Ears, Nose, Mouth, and Throat: Denies dizziness Cardiovascular Cardiovascular: Denies chest pain, Denies palpitations and Denies dyspnea Respiratory Respiratory: Denies dyspnea Gastrointestinal Gastrointestinal: Denies abdominal pain, Denies nausea and Denies vomiting Neurologic Neurologic: Denies dizziness Endocrine Endocrine: Denies palpitations Physical Exam Vital Signs: Vital Signs: Last Vital Signs Temp 97.3 F 09/19/22 07:43 Pulse 66 09/19/22 07:43 Resp 18 09/19/22 07:43 BP 103/63 09/19/22 07:43 Pulse Ox 95 09/19/22 07:43 O2 Del Method Room Air 09/19/22 07:43 O2 Flow Rate 2 09/18/22 03:25 BMI result Body Mass Index 26.9 Const: General: cooperative, comfortable, no acute distress, alert and awake Nutritional Appearance: average body habitus Orientation/consciousness: patient oriented x3 Resp: Other: left basilar crackles Effort & Inspection: normal respiratory effort, able to speak in complete sentences, no respiratory distress and no use of accessory muscles Cardio: Rate: regular rate Heart sounds: S1 normal heart sound present and S2 normal heart sound present GI: Inspection: No distended Palpation (GI): Soft to palpation and nontender : Other: sandoval in place draining yellow urine penis covered in dressing no staining Neuro: General: patient oriented x3, moves all extremities and CN's II-XI intact bilaterally Extrem: Other: trace lower extremity edema Objective Data Active Medications Acetaminophen (Acetaminophen 325 Mg Tablet) 650 mg PO Q6H PRN PRN Reason: Pain, Mild (Pain Scale 1-3) Last Admin: 09/14/22 08:09 Dose: 650 mg Documented By: MARILYN Amoxicillin/Clavulanate Potassium (Amoxicillin/Potassium Clav 875 Mg Tablet) 875 mg PO BID [facility] Last Admin: 09/19/22 07:57 Dose: 875 mg Documented By: JERAMIE Cyclobenzaprine HCl (Cyclobenzaprine Hcl 10 Mg Tablet) 10 mg PO BEDTIME [facility] Last Admin: 09/18/22 19:56 Dose: 10 mg Documented By: CHANTAL Folic Acid (Folic Acid 1 Mg Tablet) 1 mg PO DAILY [facility] Last Admin: 09/19/22 07:57 Dose: 1 mg Documented By: JERAMIE Hydromorphone HCl (Hydromorphone Hcl 1 Mg/Ml Syringe) 0.5 mg IVPUSH Q4H PRN; Protocol PRN Reason: Pain, Severe (Pain Scale 7-10) Last Admin: 09/19/22 06:00 Dose: 0.5 mg Documented By: CHANTAL Lidocaine (Lidocaine 4 % Patch Adh..Patch) 1 patch TRANSDERMA DAILY [facility] Last Admin: 09/19/22 07:57 Dose: 1 patch Documented By: JERAMIE Melatonin (Melatonin 3 Mg Tablet) 6 mg PO BEDTIME PRN PRN Reason: Insomnia Last Admin: 09/18/22 22:41 Dose: 6 mg Documented By: CHANTAL Omeprazole (Omeprazole 20 Mg Capsule.Dr) 20 mg PO DAILY@0630 [facility] Last Admin: 09/19/22 06:00 Dose: 20 mg Documented By: CHANTAL Ondansetron HCl (Ondansetron Hcl 4 Mg/2 Ml Vial) 4 mg IVPUSH Q8H PRN PRN Reason: Nausea and Vomiting Last Admin: 09/19/22 06:07 Dose: 4 mg Documented By: CHANTAL Pharmacy Consult (Consult Rx Perform Med Rec) 1 each MISCELLANE ONCE PRN PRN Reason: Consult order Pharmacy Consult (Consult Rx Etoh Phenob Im/Po) 1 each MISCELLANE ONCE PRN; Protocol PRN Reason: Consult order Sodium Chloride (0.9 % Sodium Chloride Flush 3 Ml Syringe) 3 ml IVFLUSH QSHIFT [facility] Last Admin: 09/19/22 07:57 Dose: 3 ml Documented By: JERAMIE Thiamine HCl (Thiamine Hcl 100 Mg Tablet) 100 mg PO DAILY [facility] Last Admin: 09/19/22 07:56 Dose: 100 mg Documented By: JERAMIE Tramadol HCl (Tramadol Hcl 50 Mg Tablet) 50 mg PO Q6H PRN PRN Reason: Pain, Moderate(Pain Scale 4-6) Last Admin: 09/18/22 22:41 Dose: 50 mg Documented By: CHANTAL Labs 09/19/22 05:50 06/04/23 05:50 Labs: Laboratory Results - last 24 hr 09/19/22 09/19/22 05:50 05:50 MCV 90.0 MCH 30.3 MCHC 33.6 RDW 18.1 H Plt Count 152 L MPV 11.7 Absolute Nucleated RBC 0.000 Nucleated RBC % (auto) 0.0 Anion Gap 7 L Estim Creat Clear Calc 134.7 Estimated GFR > 60 Random Glucose 75 Calcium 6.3 L Assessment and Plan (1) Penile lesion: Status: Acute Plan This is a 57-year-old male with history of alcohol dependence and chronic kidney disease, unspecified stage admitted for necrotic ulceration of penis with cellulitis, status post gastric bypass surgery for obesity. Necrotic stage 2 ulceration of the penis with cellulitis continue IV Cefepime/Vanco started 09/11, CRP 11.13 Underwent Sandoval catheter replacement by Dr. Antony had difficult placement due to meatal scarring and erosion of glans HIV, chlamydia, gonorrhea and syphilis nonreactive. Blood cultures negative CRP down to 1 s/p penile debridement, degloving, circumcision and reconstruction 09/17 - plan for dressing change Tuesday by Dr. Antony; patricia drain came out - Dr. Antony aware Initially treated with IV vanco/cefepime, now transitioned to po Augmentin begin to wean pain medication Acute on chronic kidney disease (unknown baseline)/metabolic acidosis resolved patient is from [place] no baseline available creatinine returned to normal after Sandoval catheter placement likely had obstructive uropathy/metabolic acidosis resolved Alcohol dependence as per sister drink 1 L daily. no evidence of alcohol withdrawal at this time s/p Phenobarb protocol continue thiamine and folic acid (history of gastric bypass) seen by addiction medicine, resources provided Hyponatremia - resolved Normocytic anemia(sister states chronic) Received 1 unit of packed RBC 02/15, 09/16 no acute GI bleed noted Normal B12 folate and iron studies likely due to chronic kidney disease and bone marrow suppression from etoh use CBC stable Thrombocytopenia likely r/t etoh follow CBC urology rec platelet transfusion prior to procedure, received 1 unit Hypoalbuminemia likely due to poor nutrition, LFTs unremarkable , HIV nonreactive, INR 1.2, continue protein shakes. Hypocalcemia due to low albumin DVT ppx -boots Full code attending - Dr. Jaffe will need PT eval on Tuesday dispo - sister plans to take patient home when medically ready depending on PT evaluation Pt. requires ongoing hospitalization to treat penile cellulitis, requiring IV pain management, post-surgical care and PT eval for safe dispo Time Spent With Patient Time: Total time managing care of this patient today ____ minutes. Quality Stroke Does the patient have a stroke diagnosis?: No VTE Prior VTE?: No VTE Risk Level:: Medical - moderate - high VTE Device Contraindication: N/A - Device Ordered VTE Drug Contraindication: Treatment Not Indicated
[2022-09-19 13:33] VITALS: BP 90/60; PULSE 69; RESP 18; TEMP 36.6; O2SAT 96
--- NOTE | 2022-09-19 15:04 | PC.NURSE ---
pt ambulated to bathroom with family today and sat out of bed in the chair for an hour. will continue to encouraged out of bed.
[2022-09-19 15:34] VITALS: BP 103/67; PULSE 71; RESP 17; TEMP 36.7; O2SAT 96
[2022-09-19 19:39] VITALS: BP 102/64; PULSE 67; RESP 18; TEMP 36.6; O2SAT 97
[2022-09-19] MEDS: Cyclobenzaprine HCl 10 MG TABLET PO (21:24)
[2022-09-20] VITALS (7 sets, daily range): BP systolic 97–120; BP diastolic 56–78; PULSE 60–73; RESP 15–19; TEMP 36–36.9; O2SAT 96–99
[2022-09-20] MEDS: Omeprazole 20 MG CAPSULE.DR PO (05:37)
[2022-09-20] MEDS: Thiamine HCL 100 MG TABLET PO (08:25)
[2022-09-20] MEDS: Amoxicillin/Potassium Clav 875 MG TABLET PO ×2 (08:25→20:25)
[2022-09-20] MEDS: 0.9 % Sodium Chloride Flush 3 ML SYRINGE IVFLUSH ×3 (08:25→20:27)
[2022-09-20] MEDS: HYDROmorphone HCl 1 MG/ML SYRINGE 0.5 MG IVPUSH (08:25)
[2022-09-20] MEDS: Folic Acid 1 MG TABLET PO (08:25)
[2022-09-20] MEDS: Acetaminophen 325 MG TABLET 650 MG PO ×2 (08:25→16:48)
[2022-09-20] MEDS: Lidocaine 4 % Patch ADH..PATCH 1 PATCH TRANSDERMA (08:25)
--- NOTE | 2022-09-20 11:36 | HO.PM.IMPN ---
Subjective Subjective Date of Service: 09/20/22 Interval History: seen and examined this morning follow up for penile ulcer no overnight events having pain at surgical site with movement Review of Systems Review of Systems: Yes all other systems are reviewed and are negative Constitutional Constitutional: Denies chills and Denies fever(s) ENT Ears, Nose, Mouth, and Throat: Denies dizziness Cardiovascular Cardiovascular: Denies chest pain, Denies palpitations and Denies dyspnea Respiratory Respiratory: Denies dyspnea Gastrointestinal Gastrointestinal: Denies abdominal pain, Denies nausea and Denies vomiting Neurologic Neurologic: Denies dizziness Endocrine Endocrine: Denies palpitations Physical Exam Vital Signs: Vital Signs: Last Vital Signs Temp 96.8 F 09/20/22 08:00 Pulse 63 09/20/22 08:00 Resp 18 09/20/22 08:00 BP 112/68 09/20/22 08:00 Pulse Ox 99 09/20/22 08:00 O2 Del Method Room Air 09/20/22 08:00 O2 Flow Rate 2 09/18/22 03:25 BMI result Body Mass Index 26.9 Appearing in no acute distress lung sounds are clear to auscultation heart regular rate rhythm, clear S1, S2 positive bowel sounds, abdomen is soft, nontender neuro patient is alert x3, no focal deficits penile dressing intact Objective Data Active Medications Acetaminophen (Acetaminophen 325 Mg Tablet) 650 mg PO Q6H PRN PRN Reason: Pain, Mild (Pain Scale 1-3) Last Admin: 09/20/22 08:25 Dose: 650 mg Documented By: ISRRAEL Amoxicillin/Clavulanate Potassium (Amoxicillin/Potassium Clav 875 Mg Tablet) 875 mg PO BID [facility] Last Admin: 09/20/22 08:25 Dose: 875 mg Documented By: ISRRAEL Cyclobenzaprine HCl (Cyclobenzaprine Hcl 10 Mg Tablet) 10 mg PO BEDTIME [facility] Last Admin: 09/19/22 21:24 Dose: 10 mg Documented By: PAIGE Folic Acid (Folic Acid 1 Mg Tablet) 1 mg PO DAILY [facility] Last Admin: 09/20/22 08:25 Dose: 1 mg Documented By: ISRRAEL Hydromorphone HCl (Hydromorphone Hcl 1 Mg/Ml Syringe) 0.5 mg IVPUSH Q4H PRN; Protocol PRN Reason: Pain, Severe (Pain Scale 7-10) Last Admin: 09/20/22 08:25 Dose: 0.5 mg Documented By: ISRRAEL Lidocaine (Lidocaine 4 % Patch Adh..Patch) 1 patch TRANSDERMA DAILY [facility] Last Admin: 09/20/22 08:25 Dose: 1 patch Documented By: ISRRAEL Melatonin (Melatonin 3 Mg Tablet) 6 mg PO BEDTIME PRN PRN Reason: Insomnia Last Admin: 09/18/22 22:41 Dose: 6 mg Documented By: CHANTAL Omeprazole (Omeprazole 20 Mg Mikayla.) 20 mg PO DAILY@0630 [facility] Last Admin: 09/20/22 05:37 Dose: 20 mg Documented By: PAIGE Ondansetron HCl (Ondansetron Hcl 4 Mg/2 Ml Vial) 4 mg IVPUSH Q8H PRN PRN Reason: Nausea and Vomiting Last Admin: 09/19/22 06:07 Dose: 4 mg Documented By: CHANTAL Pharmacy Consult (Consult Rx Perform Med Rec) 1 each MISCELLANE ONCE PRN PRN Reason: Consult order Pharmacy Consult (Consult Rx Etoh Phenob Im/Po) 1 each MISCELLANE ONCE PRN; Protocol PRN Reason: Consult order Sodium Chloride (0.9 % Sodium Chloride Flush 3 Ml Syringe) 3 ml IVFLUSH QSHIFT [facility] Last Admin: 09/20/22 08:25 Dose: 3 ml Documented By: ISRRAEL Thiamine HCl (Thiamine Hcl 100 Mg Tablet) 100 mg PO DAILY [facility] Last Admin: 09/20/22 08:25 Dose: 100 mg Documented By: ISRRAEL Tramadol HCl (Tramadol Hcl 50 Mg Tablet) 50 mg PO Q6H PRN PRN Reason: Pain, Moderate(Pain Scale 4-6) Last Admin: 09/18/22 22:41 Dose: 50 mg Documented By: CHANTAL Labs 09/19/22 05:50 09/19/22 05:50 Assessment and Plan (1) Penile lesion: Status: Acute Plan 57-year-old male with history of alcohol dependence and chronic kidney disease, unspecified stage admitted for necrotic ulceration of penis with cellulitis, status post gastric bypass surgery for obesity. Necrotic stage 2 ulceration of the penis with cellulitis continue IV Cefepime/Vanco started 09/11, CRP 11.13 Underwent Leiva catheter replacement by Dr. Antony had difficult placement due to meatal scarring and erosion of glans HIV, chlamydia, gonorrhea and syphilis nonreactive. Blood cultures negative s/p penile debridement, degloving, circumcision and reconstruction 09/17 Initially treated with IV vanco/cefepime, now transitioned to po Augmentin plan for dressing take down 09/22/22 Acute on chronic kidney disease (unknown baseline)/metabolic acidosis resolved patient is from [place] no baseline available creatinine returned to normal after Leiva catheter placement likely had obstructive uropathy/metabolic acidosis resolved Alcohol dependence as per sister drink 1 L daily. no evidence of alcohol withdrawal at this time s/p Phenobarb protocol continue thiamine and folic acid (history of gastric bypass) seen by addiction medicine, resources provided Hyponatremia resolved Normocytic anemia(sister states chronic) Received 1 unit of packed RBC 02/15, 09/16 no acute GI bleed noted Normal B12 folate and iron studies likely due to chronic kidney disease and bone marrow suppression from etoh use CBC stable Thrombocytopenia likely r/t etoh follow CBC urology rec platelet transfusion prior to procedure, received 1 unit Hypoalbuminemia likely due to poor nutrition, LFTs unremarkable , HIV nonreactive, INR 1.2, continue protein shakes. Hypocalcemia due to low albumin DVT ppx -boots Full code attending - Dr. Jaffe dispo - sister plans to take patient home when medically ready depending on PT evaluation Pt. requires ongoing hospitalization to treat penile cellulitis, requiring IV pain management, post-surgical care and PT eval for safe dispo Time Spent With Patient Time: Total time managing care of this patient today ____ minutes. Quality Stroke Does the patient have a stroke diagnosis?: No VTE Prior VTE?: No VTE Risk Level:: Medical - moderate - high VTE Device Contraindication: N/A - Device Ordered VTE Drug Contraindication: Treatment Not Indicated
[2022-09-20] MEDS: traMADoL HCL 50 MG TABLET PO ×2 (12:37→21:09)
--- NOTE | 2022-09-20 14:45 | MHC.CM.PN ---
STILL REQUIRES IV PAIN MANAGEMENT. AWAITING URO INPUT. NO PLAN FOR DC TODAY CASE MANAGEMENT FOLLOWING
[2022-09-20] MEDS: Benzonatate 100 MG CAPSULE PO (16:48)
[2022-09-20] MEDS: Cyclobenzaprine HCl 10 MG TABLET PO (20:24)
[2022-09-20] MEDS: Melatonin 3 MG TABLET 6 MG PO (21:09)
[2022-09-21] VITALS: BP 97/63; PULSE 73; RESP 16; TEMP 36.2; O2SAT 97
[2022-09-21 04:00] VITALS: BP 90/54; PULSE 76; RESP 16; TEMP 36.2; O2SAT 97
[2022-09-21] MEDS: Omeprazole 20 MG CAPSULE.DR PO (05:50)
[2022-09-21 07:31] VITALS: BP 98/66; PULSE 64; RESP 18; TEMP 36.4; O2SAT 97
[2022-09-21 08:37] LABS: Anion Gap 7 (12-20); Blood Urea Nitrogen 13 mg/dL (9-16); Calcium 6.7 mg/dL (8.4-10.2); Carbon Dioxide 23 mmol/L (22-29); Chloride 109 mmol/L (96-108); Creatinine Clr Calc Pharmacy 134.7; Estimated Glomerular Filt Rate > 60; Glucose Random 78 mg/dL (60-115); Potassium 4.7 mmol/L (3.3-5.1); Sodium 134 mmol/L (135-145)
--- NOTE | 2022-09-21 08:52 | MHC.CM.PN ---
PCP IS JORDYN DIGGS [phone] UPDATE MADE IN [facility] QUICK TASK [facility] REFERRAL PLACED. DRESSING REMOVAL, AND POSSIBLE DC, TOMORROW 09/22/22
[2022-09-21] MEDS: Amoxicillin/Potassium Clav 875 MG TABLET PO ×2 (09:10→20:08)
[2022-09-21] MEDS: Thiamine HCL 100 MG TABLET PO (09:10)
[2022-09-21] MEDS: Lidocaine 4 % Patch ADH..PATCH 1 PATCH TRANSDERMA (09:11)
[2022-09-21] MEDS: Benzonatate 100 MG CAPSULE PO (09:11)
[2022-09-21] MEDS: Folic Acid 1 MG TABLET PO (09:11)
[2022-09-21] MEDS: 0.9 % Sodium Chloride Flush 3 ML SYRINGE IVFLUSH (09:12)
[2022-09-21 12:00] VITALS: BP 109/63; PULSE 63; RESP 18; TEMP 36.6; O2SAT 98
--- NOTE | 2022-09-21 12:17 | P.PNIM_ITS ---
Subjective Subjective Date of Service: 09/21/22 Interval History: seen and examined this morning follow up for penile ulcer no overnight events having pain at surgical site with movement Review of Systems Review of Systems: Yes all other systems are reviewed and are negative Constitutional Constitutional: Denies chills and Denies fever(s) ENT Ears, Nose, Mouth, and Throat: Denies dizziness Cardiovascular Cardiovascular: Denies chest pain, Denies palpitations and Denies dyspnea Respiratory Respiratory: Denies dyspnea Gastrointestinal Gastrointestinal: Denies abdominal pain, Denies nausea and Denies vomiting Neurologic Neurologic: Denies dizziness Endocrine Endocrine: Denies palpitations Physical Exam Vital Signs: Vital Signs: Last Vital Signs Temp 97.6 F 09/21/22 07:31 Pulse 64 09/21/22 07:31 Resp 18 09/21/22 07:31 BP 98/66 09/21/22 07:31 Pulse Ox 97 09/21/22 07:31 O2 Del Method Room Air 09/21/22 07:31 O2 Flow Rate 2 09/18/22 03:25 BMI result Body Mass Index 26.9 Appearing in no acute distress lung sounds are clear to auscultation heart regular rate rhythm, clear S1, S2 positive bowel sounds, abdomen is soft, nontender neuro patient is alert x3, no focal deficits Penile dressing Objective Data Active Medications Acetaminophen (Acetaminophen 325 Mg Tablet) 650 mg PO Q6H PRN PRN Reason: Pain, Mild (Pain Scale 1-3) Last Admin: 09/20/22 16:48 Dose: 650 mg Documented By: ISRRAEL Amoxicillin/Clavulanate Potassium (Amoxicillin/Potassium Clav 875 Mg Tablet) 875 mg PO BID [facility] Last Admin: 09/21/22 09:10 Dose: 875 mg Documented By: ISRRAEL Benzonatate (Benzonatate 100 Mg Capsule) 100 mg PO TID PRN PRN Reason: Cough Last Admin: 09/21/22 09:11 Dose: 100 mg Documented By: ISRRAEL Cyclobenzaprine HCl (Cyclobenzaprine Hcl 10 Mg Tablet) 10 mg PO BEDTIME [facility] Last Admin: 09/20/22 20:24 Dose: 10 mg Documented By: PAIGE Folic Acid (Folic Acid 1 Mg Tablet) 1 mg PO DAILY [facility] Last Admin: 09/21/22 09:11 Dose: 1 mg Documented By: HO.MATTHEP Hydromorphone HCl (Hydromorphone Hcl 1 Mg/Ml Syringe) 0.5 mg IVPUSH Q4H PRN; Protocol PRN Reason: Pain, Severe (Pain Scale 7-10) Last Admin: 09/20/22 08:25 Dose: 0.5 mg Documented By: ISRRAEL Lidocaine (Lidocaine 4 % Patch Adh..Patch) 1 patch TRANSDERMA DAILY [facility] Last Admin: 09/21/22 09:11 Dose: 1 patch Documented By: ISRRAEL Melatonin (Melatonin 3 Mg Tablet) 6 mg PO BEDTIME PRN PRN Reason: Insomnia Last Admin: 09/20/22 21:09 Dose: 6 mg Documented By: PAIGE Omeprazole (Omeprazole 20 Mg Capsule.Dr) 20 mg PO DAILY@629 [facility] Last Admin: 09/21/22 05:50 Dose: 20 mg Documented By: PAIGE Ondansetron HCl (Ondansetron Hcl 4 Mg/2 Ml Vial) 4 mg IVPUSH Q8H PRN PRN Reason: Nausea and Vomiting Last Admin: 09/19/22 06:07 Dose: 4 mg Documented By: CHANTAL Pharmacy Consult (Consult Rx Perform Med Rec) 1 each MISCELLANE ONCE PRN PRN Reason: Consult order Pharmacy Consult (Consult Rx Etoh Phenob Im/Po) 1 each MISCELLANE ONCE PRN; Protocol PRN Reason: Consult order Sodium Chloride (0.9 % Sodium Chloride Flush 3 Ml Syringe) 3 ml IVFLUSH QSHIFT [facility] Last Admin: 09/21/22 09:12 Dose: 3 ml Documented By: ISRRAEL Thiamine HCl (Thiamine Hcl 100 Mg Tablet) 100 mg PO DAILY [facility] Last Admin: 09/21/22 09:10 Dose: 100 mg Documented By: ISRRAEL Tramadol HCl (Tramadol Hcl 50 Mg Tablet) 50 mg PO Q6H PRN PRN Reason: Pain, Moderate(Pain Scale 4-6) Last Admin: 09/20/22 21:09 Dose: 50 mg Documented By: PAIGE Labs 09/19/22 05:50 09/21/22 07:53 Labs: Laboratory Results - last 24 hr 09/21/22 07:53 Anion Gap 7 L Estim Creat Clear Calc 134.7 Estimated GFR > 60 Random Glucose 78 Calcium 6.7 L D Assessment and Plan (1) Penile lesion: Status: Acute Plan 57-year-old male with history of alcohol dependence and chronic kidney disease, unspecified stage admitted for necrotic ulceration of penis with cellulitis, status post gastric bypass surgery for obesity. Necrotic stage 2 ulceration of the penis with cellulitis continue IV Cefepime/Vanco started 09/11, CRP 11.13 Underwent Leiva catheter replacement by Dr. Antony had difficult placement due to meatal scarring and erosion of glans HIV, chlamydia, gonorrhea and syphilis nonreactive. Blood cultures negative s/p penile debridement, degloving, circumcision and reconstruction 09/17 Initially treated with IV vanco/cefepime, now transitioned to po Augmentin plan for dressing take down 09/22/22 Acute on chronic kidney disease (unknown baseline)/metabolic acidosis resolved patient is from [place] no baseline available creatinine returned to normal after Leiva catheter placement likely had obstructive uropathy/metabolic acidosis resolved Alcohol dependence as per sister drink 1 L daily. no evidence of alcohol withdrawal at this time s/p Phenobarb protocol continue thiamine and folic acid (history of gastric bypass) seen by addiction medicine, resources provided Hyponatremia resolved Normocytic anemia(sister states chronic) Received 1 unit of packed RBC 02/15, 09/16 no acute GI bleed noted Normal B12 folate and iron studies likely due to chronic kidney disease and bone marrow suppression from etoh use CBC stable Thrombocytopenia likely r/t etoh follow CBC urology rec platelet transfusion prior to procedure, received 1 unit Hypoalbuminemia likely due to poor nutrition, LFTs unremarkable , HIV nonreactive, INR 1.2, cont inue protein shakes. Hypocalcemia due to low albumin DVT ppx -boots Full code attending - Dr. Jaffe dispo - sister plans to take patient home when medically ready Pt. requires ongoing hospitalization to treat penile cellulitis, requiring IV pain management, post-surgical care and PT eval for safe dispo Time Spent With Patient Time: Total time managing care of this patient today ____ minutes. Quality Stroke Does the patient have a stroke diagnosis?: No VTE Prior VTE?: No VTE Risk Level:: Medical - moderate - high VTE Device Contraindication: N/A - Device Ordered VTE Drug Contraindication: Treatment Not Indicated
[2022-09-21 15:36] VITALS: BP 96/57; PULSE 88; RESP 18; TEMP 36; O2SAT 99
--- NOTE | 2022-09-21 16:44 | P.CDIM_ITS ---
PROVIDER RESPONSE TEXT: To clarify, the appropriate diagnosis supported by the clinical indicators: Acute metabolic acidosis QUERY TEXT: PHYSICIAN'S DOCUMENTATION REQUEST Date of Query: 09/21/2022 10:11 AM EDT Patient Name: MARICRUZ ALLEN Admit Date: 09/12/2022 Dear Sophie Tejada, A review of the medical record indicates additional documentation may be needed. Please review below and update the documentation accordingly. Clinical Indicators: PN: PLAN: Acute on chronic kidney disease/metabolic acidosis, resolved Based on the above, is there an acuity to the metabolic acidosis above: Metabolic acidosis Acute metabolic acidosis Other Other (explain)Clinically unable to determine (explain)Thank you, Lula Mason, CCS, CDIS Use of terms such as suspected, likely, concern for, or probable (associated with a specific diagnosi s that is being evaluated, monitored, or treated as if it exists) are acceptable and can be coded in the inpatient se tting, when documented at the time of discharge. Please use your independent medical judgment in providing your response. THIS QUERY IS PART OF THE PERMANENT MEDICAL RECORD
[2022-09-21 19:44] VITALS: BP 105/71; PULSE 82; RESP 18; TEMP 36.5; O2SAT 98
[2022-09-21] MEDS: Cyclobenzaprine HCl 10 MG TABLET PO (20:08)
[2022-09-21] MEDS: traMADoL HCL 50 MG TABLET PO (20:09)
[2022-09-22] VITALS: BP 91/55; PULSE 75; RESP 16; TEMP 36.2; O2SAT 96
[2022-09-22 03:19] VITALS: BP 98/64; PULSE 74; RESP 16; TEMP 36.3; O2SAT 95
[2022-09-22] MEDS: Omeprazole 20 MG CAPSULE.DR PO (05:07)
[2022-09-22 07:06] VITALS: BP 114/63; PULSE 72; RESP 16; TEMP 36.6; O2SAT 96
[2022-09-22] MEDS: Folic Acid 1 MG TABLET PO (08:38)
[2022-09-22] MEDS: Amoxicillin/Potassium Clav 875 MG TABLET PO ×2 (08:38→21:26)
[2022-09-22] MEDS: Thiamine HCL 100 MG TABLET PO (08:38)
[2022-09-22] MEDS: Lidocaine 4 % Patch ADH..PATCH 1 PATCH TRANSDERMA (08:39)
[2022-09-22] MEDS: 0.9 % Sodium Chloride Flush 3 ML SYRINGE IVFLUSH ×2 (08:40→15:38)
--- NOTE | 2022-09-22 13:37 | MHC.CM.PN ---
PER PATIENT REQUEST, CALL TO PATIENT'S WORK HR DEPT ([facility] [phone]) [employer] SAYS THAT HR CONTACT, [employer], WILL BE EMAILING THIS [employer] DISABILITY FORMS TO ADDRESS GIVEN. ONCE RECEIVED, T/W TO PRINT AND GIVE TO SISTER PER PATIENT REQUEST SISTERRITA, AWARE
--- NOTE | 2022-09-22 14:04 | HO.PM.IMPN ---
Subjective Subjective Date of Service: 09/22/22 Interval History: Dressing to be removed by Urology today. Pain well controlled with Ultram prior Review of Systems Denies chest pain Denies shortness of breath Denies nausea vomiting diarrhea Denies fever chills Physical Exam Vital Signs: Vital Signs: Last Vital Signs Temp 98 F 09/22/22 07:06 Pulse 72 09/22/22 07:06 Resp 16 09/22/22 07:06 BP 114/63 09/22/22 07:06 Pulse Ox 96 09/22/22 07:06 O2 Del Method Room Air 09/22/22 07:06 O2 Flow Rate 2 09/18/22 03:25 BMI result Body Mass Index 26.9 Const: Other: Somnolent but arousable no acute distress Resp: Other: Clear to auscultation bilaterally no rales rhonchi wheezes Cardio: Other: No S4; positive S1-S2; no S3 murmurs rubs or gallops : Other: See admission photos. Now leaking urine from dorsal wound Extrem: Other: No edema bilaterally Objective Data Active Medications Acetaminophen (Acetaminophen 325 Mg Tablet) 650 mg PO Q6H PRN PRN Reason: Pain, Mild (Pain Scale 1-3) Last Admin: 09/20/22 16:48 Dose: 650 mg Documented By: ISRRAEL Amoxicillin/Clavulanate Potassium (Amoxicillin/Potassium Clav 875 Mg Tablet) 875 mg PO BID [facility] Last Admin: 09/22/22 08:38 Dose: 875 mg Documented By: GLORIA Benzonatate (Benzonatate 100 Mg Capsule) 100 mg PO TID PRN PRN Reason: Cough Last Admin: 09/21/22 09:11 Dose: 100 mg Documented By: ISRRAEL Cyclobenzaprine HCl (Cyclobenzaprine Hcl 10 Mg Tablet) 10 mg PO BEDTIME [facility] Last Admin: 09/21/22 20:08 Dose: 10 mg Documented By: DONAVAN Folic Acid (Folic Acid 1 Mg Tablet) 1 mg PO DAILY [facility] Last Admin: 09/22/22 08:38 Dose: 1 mg Documented By: GLORIA Lidocaine (Lidocaine 4 % Patch Adh..Patch) 1 patch TRANSDERMA DAILY [facility] Last Admin: 09/22/22 08:39 Dose: 1 patch Documented By: GLORIA Lorazepam (Lorazepam 0.5 Mg Tablet) 0.5 mg PO BEDTIME PRN PRN Reason: Insomnia Melatonin (Melatonin 3 Mg Tablet) 6 mg PO BEDTIME PRN PRN Reason: Insomnia Last Admin: 09/20/22 21:09 Dose: 6 mg Documented By: PAIGE Omeprazole (Omeprazole 20 Mg Capsule.Dr) 20 mg PO DAILY@0630 [facility] Last Admin: 09/22/22 05:07 Dose: 20 mg Documented By: ABE Ondansetron HCl (Ondansetron Hcl 4 Mg/2 Ml Vial) 4 mg IVPUSH Q8H PRN PRN Reason: Nausea and Vomiting Last Admin: 09/19/22 06:07 Dose: 4 mg Documented By: CHANTAL Pharmacy Consult (Consult Rx Perform Med Rec) 1 each MISCELLANE ONCE PRN PRN Reason: Consult order Pharmacy Consult (Consult Rx Etoh Phenob Im/Po) 1 each MISCELLANE ONCE PRN; Protocol PRN Reason: Consult order Sodium Chloride (0.9 % Sodium Chloride Flush 3 Ml Syringe) 3 ml IVFLUSH QSHIFT [facility] Last Admin: 09/22/22 08:40 Dose: 3 ml Documented By: GLORIA Thiamine HCl (Thiamine Hcl 100 Mg Tablet) 100 mg PO DAILY [facility] Last Admin: 09/22/22 08:38 Dose: 100 mg Documented By: GLORIA Tramadol HCl (Tramadol Hcl 50 Mg Tablet) 50 mg PO Q6H PRN PRN Reason: Pain, Moderate(Pain Scale 4-6) Last Admin: 09/21/22 20:09 Dose: 50 mg Documented By: MARIZASA Labs 09/19/22 05:50 09/21/22 07:53 Assessment and Plan (1) Penile lesion: Status: Acute (2) Acute kidney injury: Status: Acute (3) Alcohol dependence: Status: Acute (4) Anemia: Status: Acute Plan 57-year-old male with history of alcohol dependence and chronic kidney disease, unspecified stage admitted for necrotic ulceration of penis with cellulitis. To OR 09/17 for debridement and circumcision. Dressing remains intact 1.Necrotic stage 2 ulceration of the penis with cellulitis -continue Augmentin as ordered -urology to see today to remove dressing 2.Acute on chronic kidney disease -resolved; likely at baseline - follow renals/divalents 3.Alcohol dependence -no signs of active withdrawal; off phenobarb protocol -thiamine and folic acid(history of gastric bypass) 4.Hyponatremia - resolved -follow renals/divalents 5.Normocytic anemia(sister states chronic. . . Noncompliant with iron/vitamin-C) -follow CBC SCPs Full code Pt requires ongoing hospitalization to treat penile cellulitis Time Spent With Patient Time: Total time managing care of this patient today ____ minutes. Quality Stroke Does the patient have a stroke diagnosis?: No VTE Prior VTE?: No VTE Risk Level:: Medical - moderate - high VTE Device Contraindication: N/A - Device Ordered VTE Drug Contraindication: Treatment Not Indicated
[2022-09-22 15:41] VITALS: BP 109/69; PULSE 78; RESP 20; TEMP 36.6; O2SAT 98
[2022-09-22 19:25] VITALS: BP 109/73; PULSE 72; RESP 18; TEMP 36.8; O2SAT 97
[2022-09-22] MEDS: Cyclobenzaprine HCl 10 MG TABLET PO (21:26)
--- NOTE | 2022-09-22 22:29 | PC.NURSE ---
Patient voided 100 ml into urinal at 2140,some urine got spilled around urinal,patient got up with assistance and ambulated to with walker ,refused to use urinal this time sat and voided some more.COMMUTATOR UNDERCUTTER bladder scanned patient for 362 ml,patient denies any discomfort,will monitor
[2022-09-23] VITALS (8 sets, daily range): BP systolic 96–115; BP diastolic 58–82; PULSE 62–86; RESP 16–20; TEMP 36.1–37.1; O2SAT 96–99
[2022-09-23] MEDS: 0.9 % Sodium Chloride Flush 3 ML SYRINGE IVFLUSH ×4 (00:33→23:49)
[2022-09-23] MEDS: Omeprazole 20 MG CAPSULE.DR PO (05:59)
[2022-09-23 06:10] LABS: MANUAL DIFF FLAG NO
[2022-09-23 06:20] LABS: Basophils Absolute Auto 0.2 X10*3/uL (0.0-0.2); Basophils Percent Auto 2.8 % (0-2); Eosinophils Absolute Auto 0.1 X10*3/uL (0.0-0.4); Eosinophils Percent Auto 1.2 % (0-4); Hematocrit 24.1 % (42.0-52.0); Imm Gran Abs Auto 0.02 X10*3/uL (0.00-0.03); Imm Gran Pct Auto 0.2 % (0.0-0.4); Lymphocytes Absolute Auto 1.7 X10*3/uL (1.2-4.9); Lymphocytes Percent Auto 20.5 % (20-40); Mean Corpuscular HGB Conc 33.2 g/dl (31.0-36.0); Mean Corpuscular Hemoglobin 30.9 pg (27.0-33.0); Mean Corpuscular Volume 93.1 fL (80.0-98.0); Mean Platelet Volume 11.3 fL (9.4-12.4); Monocytes Absolute Auto 0.9 X10*3/uL (0.1-1.2); Monocytes Percent Auto 10.9 % (2-11); Neutrophils Absolute Auto 5.2 x10*3/uL (2.0-8.3); Neutrophils Percent Auto 64.4 % (45-73); Platelet Count 214 X10*3/uL (160-400); Red Blood Count 2.59 X10*6/uL (4.60-5.80); Red Cell Distribution Width 17.8 % (11.0-16.0); White Blood Count 8.1 X10*3/uL (4.8-10.8)
[2022-09-23 06:29] LABS: Alanine Aminotransferase 25 U/L (0-40); Albumin Level 1.9 g/dL (3.5-5.0); Alkaline Phosphatase 164 U/L (39-117); Anion Gap 9 (12-20); Aspartate Amino Transferase 58 U/L (5-37); Bilirubin Total 0.4 mg/dL (0.0-1.0); Blood Urea Nitrogen 16 mg/dL (9-16); Calcium 6.9 mg/dL (8.4-10.2); Carbon Dioxide 22 mmol/L (22-29); Chloride 112 mmol/L (96-108); Creatinine Clr Calc Pharmacy 123.7; Estimated Glomerular Filt Rate > 60; Glucose Fasting 88 mg/dL (60-99); Potassium 4.7 mmol/L (3.3-5.1); Sodium 138 mmol/L (135-145)
[2022-09-23] MEDS: Folic Acid 1 MG TABLET PO (08:35)
[2022-09-23] MEDS: Thiamine HCL 100 MG TABLET PO (08:35)
[2022-09-23] MEDS: Amoxicillin/Potassium Clav 875 MG TABLET PO ×2 (08:35→20:28)
--- NOTE | 2022-09-23 08:53 | MHC.CM.PN ---
FMLA FORM 381, 380-E, AND NURSING HOME-POINT DISABILITY CLAIM FORM RECEIVED, PRINTED, AND GIVEN TO PATIENT AND SISTER (RITA,IN ROOM). ONCE COMPLETED, CM CAN EMAIL BACK TO [email or web address]
--- NOTE | 2022-09-23 12:56 | HO.PM.IMPN ---
Subjective Subjective Date of Service: 09/23/22 Interval History: Pain well controlled with Ultram prior. Will order dilaudid prior to dressing change Review of Systems Denies chest pain Denies shortness of breath Denies nausea vomiting diarrhea Denies fever chills Physical Exam Vital Signs: Vital Signs: Last Vital Signs Temp 98 F 09/23/22 11:36 Pulse 74 09/23/22 09:54 Resp 16 09/23/22 07:03 BP 115/82 09/23/22 09:54 Pulse Ox 98 09/23/22 09:54 O2 Del Method Room Air 09/23/22 07:03 O2 Flow Rate 2 09/18/22 03:25 BMI result Body Mass Index 26.9 Const: Other: Somnolent but arousable no acute distress Resp: Other: Clear to auscultation bilaterally no rales rhonchi wheezes Cardio: Other: No S4; positive S1-S2; no S3 murmurs rubs or gallops : Other: See admission photos. Now leaking urine from dorsal wound Extrem: Other: No edema bilaterally Objective Data Active Medications Acetaminophen (Acetaminophen 325 Mg Tablet) 650 mg PO Q6H PRN PRN Reason: Pain, Mild (Pain Scale 1-3) Last Admin: 09/20/22 16:48 Dose: 650 mg Documented By: ISRRAEL Amoxicillin/Clavulanate Potassium (Amoxicillin/Potassium Clav 875 Mg Tablet) 875 mg PO BID [facility] Last Admin: 09/23/22 08:35 Dose: 875 mg Documented By: GLORIA Benzonatate (Benzonatate 100 Mg Capsule) 100 mg PO TID PRN PRN Reason: Cough Last Admin: 09/21/22 09:11 Dose: 100 mg Documented By: ISRRAEL Cyclobenzaprine HCl (Cyclobenzaprine Hcl 10 Mg Tablet) 10 mg PO BEDTIME [facility] Last Admin: 09/22/22 21:26 Dose: 10 mg Documented By: ANGEL Folic Acid (Folic Acid 1 Mg Tablet) 1 mg PO DAILY [facility] Last Admin: 09/23/22 08:35 Dose: 1 mg Documented By: GLORIA Lidocaine (Lidocaine 4 % Patch Adh..Patch) 1 patch TRANSDERMA DAILY [facility] Last Admin: 09/23/22 08:36 Dose: Not Given Documented By: GLORIA Non-Admin Reason: Patient Refused Lorazepam (Lorazepam 0.5 Mg Tablet) 0.5 mg PO BEDTIME PRN PRN Reason: Insomnia Melatonin (Melatonin 3 Mg Tablet) 6 mg PO BEDTIME PRN PRN Reason: Insomnia Last Admin: 09/20/22 21:09 Dose: 6 mg Documented By: PAIGE Omeprazole (Omeprazole 20 Mg Capsule.Dr) 20 mg PO DAILY@0630 [facility] Last Admin: 09/23/22 05:59 Dose: 20 mg Documented By: HELIO Ondansetron HCl (Ondansetron Hcl 4 Mg/2 Ml Vial) 4 mg IVPUSH Q8H PRN PRN Reason: Nausea and Vomiting Last Admin: 09/19/22 06:07 Dose: 4 mg Documented By: CHANTAL Pharmacy Consult (Consult Rx Perform Med Rec) 1 each MISCELLANE ONCE PRN PRN Reason: Consult order Pharmacy Consult (Consult Rx Etoh Phenob Im/Po) 1 each MISCELLANE ONCE PRN; Protocol PRN Reason: Consult order Sodium Chloride (0.9 % Sodium Chloride Flush 3 Ml Syringe) 3 ml IVFLUSH QSHIFT [facility] Last Admin: 09/23/22 08:35 Dose: 3 ml Documented By: GLORIA Thiamine HCl (Thiamine Hcl 100 Mg Tablet) 100 mg PO DAILY [facility] Last Admin: 09/23/22 08:35 Dose: 100 mg Documented By: GLORIA Labs 09/23/22 05:47 09/23/22 05:47 Labs: Laboratory Results - last 24 hr 09/23/22 09/23/22 05:47 05:47 MCV 93.1 MCH 30.9 MCHC 33.2 RDW 17.8 H Plt Count 214 D MPV 11.3 Immature Gran % (Auto) 0.2 Neut % (Auto) 64.4 Lymph % (Auto) 20.5 [place] % (Auto) 10.9 Eos % (Auto) 1.2 Baso % (Auto) 2.8 H Lymph # (Auto) 1.7 [place] # (Auto) 0.9 Eos # (Auto) 0.1 Baso # (Auto) 0.2 Abs Immat Gran (auto) 0.02 Absolute Neuts (auto) 5.2 Absolute Nucleated RBC 0.000 Nucleated RBC % (auto) 0.0 Anion Gap 9 L Estim Creat Clear Calc 123.7 Estimated GFR > 60 Fasting Glucose 88 Calcium 6.9 L Total Bilirubin 0.4 AST 58 H ALT 25 Alkaline Phosphatase 164 H Total Protein 6.0 L Albumin 1.9 L Assessment and Plan (1) Penile lesion: Status: Acute (2) Acute kidney injury: Status: Acute (3) Alcohol dependence: Status: Acute (4) Anemia: Status: Acute Plan 57-year-old male with history of alcohol dependence and chronic kidney disease, unspecified stage admitted for necrotic ulceration of penis with cellulitis. To OR 09/17 for debridement and circumcision. Dressing remains intact 1.Necrotic stage 2 ulceration of the penis with cellulitis -continue Augmentin as ordered -premedicate prior to dressing change 2.Acute on chronic kidney disease -resolved; likely at baseline - follow renals/divalents 3.Alcohol dependence -no signs of active withdrawal; off phenobarb protocol -thiamine and folic acid(history of gastric bypass) 4.Hyponatremia - resolved -follow renals/divalents 5.Normocytic anemia(sister states chronic. . . Noncompliant with iron/vitamin-C) -follow CBC SCPs Full code Pt requires ongoing hospitalization to treat penile cellulitis Time Spent With Patient Time: Total time managing care of this patient today ____ minutes. Quality Stroke Does the patient have a stroke diagnosis?: No VTE Prior VTE?: No VTE Risk Level:: Medical - moderate - high VTE Device Contraindication: N/A - Device Ordered VTE Drug Contraindication: Treatment Not Indicated
--- NOTE | 2022-09-23 16:31 | MHC.CM.PN ---
CALL TO OFFICE OF PCP JORDYN RIOS [phone] LINE BUSY ON 3 ATTEMPTS 4TH ATTEMPT, NO ANSWER. MESSAGE LEFT FOR A CALL BACK TO DISCUSS NEED FOR EMAIL OR FAX NUMBER FOR PATIENT'S FORMS (ON CHART)
--- NOTE | 2022-09-23 16:38 | PC.NURSE ---
surgical drsg changed by Dr. Antony
--- NOTE | 2022-09-23 16:41 | MHC.CM.PN ---
PER CONVERSATION WITH UROLOGIST, NO VNA NEEDED. SISTER, RITA, CAN ASSIST WITH DAILY DRESSING. SISTER AWARE OF ANTICIPATED DC Tuesday09/24/22. [facility] REFERRALS MADE AWARE IN [facility].
--- NOTE | 2022-09-23 17:48 | P.PNUR_ITS ---
Subjective Subjective Date of Service: 09/23/22 Interval history: post op dresing removed mild edema of penile glans will prescribe daily abx for 14 days light dressing on dorsal surface Physical Exam Vital Signs: Vital Signs: Last Vital Signs Temp 97 F 09/23/22 15:22 Pulse 86 09/23/22 15:22 Resp 17 09/23/22 15:22 BP 109/61 09/23/22 15:22 Pulse Ox 99 09/23/22 15:22 O2 Del Method Room Air 09/23/22 15:22 O2 Flow Rate 2 09/18/22 03:25 BMI result Body Mass Index 26.9 Const: General: cooperative, healthy appearing, comfortable and no acute distress Orientation/consciousness: patient oriented x3 HEENT: Face and sinus: Yes normal facial exam Mouth: moist mucous membranes Neck: Neck: Yes normal visual inspection, Yes full ROM and Yes trachea midline Chest: Chest palpation & inspection: normal inspection of the chest Resp: Effort & Inspection: normal respiratory effort, able to speak in complete sentences and no respiratory distress GI: Inspection: Yes normal to inspection Back/Spine/Pelvis: Cervical Spine: normal cervical lordosis Thoracic/Lumbar Spine: thoracic and lumbar spine normal to inspection Skin: General skin exam: no rashes or lesions noted Neuro: General: patient oriented x3, tone normal and moves all extremities Extrem: General: Yes normal to inspection and Yes capillary refill normal Urology Results Labs 09/23/22 05:47 09/23/22 05:47 Labs: Laboratory Results - last 24 hr 09/23/22 09/23/22 05:47 05:47 WBC 8.1 RBC 2.59 L Hgb 8.0 L Hct 24.1 L MCV 93.1 MCH 30.9 MCHC 33.2 RDW 17.8 H Plt Count 214 D MPV 11.3 Immature Gran % (Auto) 0.2 Neut % (Auto) 64.4 Lymph % (Auto) 20.5 [place] % (Auto) 10.9 Eos % (Auto) 1.2 Baso % (Auto) 2.8 H Lymph # (Auto) 1.7 [place] # (Auto) 0.9 Eos # (Auto) 0.1 Baso # (Auto) 0.2 Abs Immat Gran (auto) 0.02 Absolute Neuts (auto) 5.2 Absolute Nucleated RBC 0.000 Nucleated RBC % (auto) 0.0 Sodium 138 Potassium 4.7 Chloride 112 H Carbon Dioxide 22 Anion Gap 9 L BUN 16 Creatinine 0.74 Estim Creat Clear Calc 123.7 Estimated GFR > 60 Fasting Glucose 88 Calcium 6.9 L Total Bilirubin 0.4 AST 58 H ALT 25 Alkaline Phosphatase 164 H Total Protein 6.0 L Albumin 1.9 L Progress Note: A&P Assessment and plan (1) Penile lesion: Status: Acute Plan f/u 4 weeks Time Spent With Patient Time: Total time managing care of this patient today ____ minutes. Progress Note: Quality Stroke Does the patient have a stroke diagnosis?: No
[2022-09-23] MEDS: HYDROmorphone HCl 1 MG/ML SYRINGE IVPUSH (20:26)
[2022-09-23] MEDS: Cyclobenzaprine HCl 10 MG TABLET PO (20:27)
[2022-09-23] MEDS: Acetaminophen 325 MG TABLET 650 MG PO (23:54)
[2022-09-24 03:27] VITALS: BP 107/61; PULSE 62; RESP 18; TEMP 36.2; O2SAT 99
[2022-09-24] MEDS: Omeprazole 20 MG CAPSULE.DR PO (06:25)
[2022-09-24 07:00] VITALS: BP 107/67; PULSE 68; RESP 16; TEMP 36.6; O2SAT 98
[2022-09-24] MEDS: Amoxicillin/Potassium Clav 875 MG TABLET PO (08:47)
[2022-09-24] MEDS: 0.9 % Sodium Chloride Flush 3 ML SYRINGE IVFLUSH (08:48)
[2022-09-24] MEDS: Thiamine HCL 100 MG TABLET PO (08:48)
[2022-09-24] MEDS: Folic Acid 1 MG TABLET PO (08:48)
[2022-09-24] MEDS: Acetaminophen 325 MG TABLET 650 MG PO (08:53)
--- NOTE | 2022-09-24 10:55 | PM.DS ---
DS: Providers Provider Date of Service: 09/24/22 Date of admission: 09/11/22 20:25 Date of discharge: 09/24/22 Primary care physician: Unknown Physician Consults: 09/11/22 20:25 Addiction Medicine Routine Consulting Provider: Addiction Covering Reason for consultation: cocaine use 09/11/22 20:35 Consult to General Surgery Routine Consulting Provider: [facility] General Surgeons Reason for consultation: penile wound 09/12/22 08:24 Consult to Urology Routine Consulting Provider: [facility] Urology Services Reason for consultation: penile ulceration DS: Diagnosis Discharge Diagnosis (1) Penile lesion: Status: Acute DS: Summary Hospital Course Hospital Course: 7-year-old male with history of alcohol dependence and chronic kidney disease, unspecified stage presents to the ED with his sister for evaluation of a penile lesion that has been present for about 2 weeks.? Describes a painful stinging sensation around the site but no other pain.? There has also been purulent discharge.? No fevers, chills, dysuria, hematuria, abdominal pain, other groin pain.? He states his last sexual encounter was 1 month ago and was protected.? He denies any recent history of unprotected sex.? No discharge from the urethral meatus.? On arrival, patient is afebrile, vitals within normal limits.? There is a very mild leukocytosis of 11.1 with slight left shift.? Platelets 138.? Creatinine 3.33, BUN 52.? Sodium 131, potassium 3.5, chloride 103, CO2 15, calcium 6.9 (corrected 7.9), AST 52, ALT 25, total bilirubin 1.0, alkaline phosphatase 217.? CRP 11.13, ESR 81.? Urine tox screen positive for cocaine.? Gonorrhea, chlamydia, trip anemia antibodies pending.? CT abdomen/pelvis showing moderate bilateral hydroceles.? Mild cellulitis involving bilateral medial thigh and posterior buttocks but no gross ulcerations or abscess seen.? There is also mild constipation.? There is bilateral prominent kidney pelvis and proximal ureters without obstructive etiology.? In the ED, has been treated with IV NS, 2 mg morphine, and IV Zosyn. He does drink alcohol on a daily basis throughout the day. Typically between 7-8 shots but sister reports it is more than this. Last drink just before arrival. [facility] Patient admitted to general medical floor and placed on broad-spectrum antibiotics; on 09/17/2022 patient underwent penile debridement penile degloving circumcision and plastics re construction. Patient tolerated this procedure well. All cultures were negative. At urology's recommendation he will be sent home on Augmentin twice daily for 2 weeks and follow-up in the office with Dr. Antony Time Spent with Patient Time attestation: Total time managing care of this patient today ____ minutes. Discharge coordination time: Greater than 30 minutes Quality: Safe Use of Opioids Does Pt have an Active Cancer Diagnosis on the Problem List?: No Quality: Stroke Does the patient have a stroke diagnosis?: No Physical Exam Vital Signs: Vital Signs: Last Vital Signs Temp 98 F 09/24/22 07:00 Pulse 68 09/24/22 07:00 Resp 16 09/24/22 07:00 BP 107/67 09/24/22 07:00 Pulse Ox 98 09/24/22 07:00 O2 Del Method Room Air 09/24/22 07:00 O2 Flow Rate 2 09/18/22 03:25 BMI result Body Mass Index 26.9 Const: Other: Somnolent but arousable no acute distress Resp: Other: Clear to auscultation bilaterally no rales rhonchi wheezes Cardio: Other: No S4; positive S1-S2; no S3 murmurs rubs or gallops : Other: See admission photos. Now leaking urine from dorsal wound Extrem: Other: No edema bilaterally DS: Data Data Completed and Pending Completed studies during hospitalization [Text1]: Pending at discharge 09/17/22 17:15 Surgical [PTH] Routine Discharge Plan Discharge Anticipated Discharge Date/Time: 09/24/22 10:50 Patient Disposition: Home, Self-Care Discharge Diagnosis: Penile lesion Referrals: JORDYN DIGGS [Other] - 1 Week Discharge Medications: New (BOB) jenni Misc See Rx Instructions .Route Qty: 1 0RF Rx Instructions: As directed amoxicillin-pot clavulanate 875-125 mg Tablet 875 mg PO BID 14 Days Qty: 25 0RF folic acid 1 mg Tablet 1 mg PO DAILY Qty: 30 0RF thiamine mononitrate (vit B1) 100 mg Tablet 100 mg PO DAILY Qty: 30 0RF Continued cyclobenzaprine 10 mg tablet 10 mg PO BEDTIME ibuprofen 800 mg tablet 800 mg PO TID lidocaine 5 % adhesive patch,medicated 1 patch topical DAILY Discharge Orders: Discharge Order (Routine); Ordered 09/24/22 Ordered By: Sharif Suarez Diet: Advance to usual diet Activity on Discharge: As tolerated Stand Alone Forms: Patient Portal Discharge page Care Plan Goals: Take Augmentin twice daily for 14 days Health Concerns: Keep dry dressing penile lesion. Plan of Treatment: Follow-up with Dr. Antony in 4 weeks Assessment: See discharge summary
--- NOTE | 2022-09-24 11:24 | MHC.CM.PN ---
Patient is discharged today to home with family assist and transport.
--- NOTE | 2022-09-25 13:34 | P.CDIM_ITS ---
PROVIDER RESPONSE TEXT: To clarify, the appropriate diagnosis supported by the clinical indicators: Acute renal failure on Chronic Kidney Disease (CKD) : 3 QUERY TEXT: PHYSICIAN'S DOCUMENTATION REQUEST Date of Query: 09/23/2022 12:59 PM EDT Patient Name: MARICRUZ ALLEN Admit Date: 09/12/2022 Dear Sharif Suarez, A review of the medical record indicates additional documentation may be needed. Please review below and update the documentation accordingly. Clinical Indicators: PMH: Chronic kidney disease CR 3.33 2.48 1.85 GFR 19 38 >60 MAKENNA on CKD resolved Please clarify which of the following accurately represents the patient's stage of CKD: Acute renal failure on Chronic Kidney Disease (CKD) (please specify stage of CKD Other Other (explain)Clinically unable to determine (explain)Thank you, Lula Mason, CCS, CDIS Use of terms such as suspected, likely, concern for, or probable (associated with a specific diagnosi s that is being evaluated, monitored, or treated as if it exists) are acceptable and can be coded in the inpatient se tting, when documented at the time of discharge. Please use your independent medical judgment in providing your response. THIS QUERY IS PART OF THE PERMANENT MEDICAL RECORD
== END 2022-09-24 13:02 | disposition home or self-care (01) | DRG 481 ==
LOC: HO.ED 19:56 → HO.EDOVER 20:37 → HO.S3 21:34 → HO.IMC 23:13 → HO.S3 23:25
PROVIDERS: Hospitalist; Nurse Practitioner Acute Care; Physician Assistant; Physician Assistant Medical; Urology; Admitting Provider Student in an Organized Health Care Education/Training Program; Emergency Provider Emergency Medicine; PCP Registered Nurse; Visit Provider Hospitalist
PROC: 0VCS0ZZ Extirpation of Matter from Penis, Open Approach (ICD-10-PCS; principal; 2022-09-17 16:30)
DX: N48.22 Cellulitis of corpus cavernosum and penis (principal); I96 Gangrene, not elsewhere classified; D69.59 Other secondary thrombocytopenia; E87.21 Acute metabolic acidosis; N17.9 Acute kidney failure, unspecified; E87.1 Hypo-osmolality and hyponatremia; E88.09 Other disorders of plasma-protein metabolism, not elsewhere classified; N18.30 Chronic kidney disease, stage 3 unspecified; N47.1 Phimosis; L98.499 Non-pressure chronic ulcer of skin of other sites with unspecified severity; N43.3 Hydrocele, unspecified; F10.229 Alcohol dependence with intoxication, unspecified; F17.210 Nicotine dependence, cigarettes, uncomplicated; Z98.84 Bariatric surgery status; Y90.4 Blood alcohol level of 80-99 mg/100 ml; F14.10 Cocaine abuse, uncomplicated; D63.1 Anemia in chronic kidney disease; D64.9 Anemia, unspecified; Z91.148 Patient's other noncompliance with medication regimen for other reason; Z71.6 Tobacco abuse counseling; Z79.899 Other long term (current) drug therapy
CPT/HCPCS: 0353U; 36415; 74176; 80048; 80053; 80202; 80307; 81001; 82565; 82607; 82728; 82746; 83540; 83605; 83735; 84300; 85025; 85027; 85610; 85652; 86140; 86780; 86850; 86900; 86901; 86923; 87040; 87070; 87086; 87205; 87389; 88304; 97116; 97161; 99221; 99285; C1758; J0692; J1170; J2270; J2370; J2405; J2543; J2560; J2795; J3010; J3370; J3371; J3411; P9016; P9073

== ENCOUNTER 2022-10-28 15:00 | Outpatient (AMB) | payer BC, SELFPAY ==
--- NOTE | 2022-10-28 15:45 | MHC.OFFVIS ---
Intake Intake Visit Reasons: S/P Penile ulceration/wound check Intake Note: Patient presents for post op Penile Wound/circumcision Urology Medications: none Blood Thinner: none Ground Operations Supervisor Required: No Accompanied by: Unknown Allergies No Known Allergies Allergy (Verified 10/28/22 18:47) Medication List - Last Reconciled 10/28/22 by JOSH De Leon cyclobenzaprine 10 mg PO BEDTIME folic acid 1 mg PO DAILY ibuprofen 800 mg PO TID lidocaine 5% 1 patch topical DAILY thiamine mononitrate (vit B1) 100 mg PO DAILY walker As directed HPI HPI Comments History of Present Illness Details Jonathon is pleasant 57-year-old male patient who was accompanied by his sister at todays visit. He presents to the office today for follow-up. He has a past medical history of alcohol dependence, anemia, and chronic kidney disease. In discussion with the patient today he reports having seeked emergency room care the end of August for evaluation of a painful ulceration to the top of his penis, patient only past medical history significant for alcohol abuse patient otherwise declined any other medical problem. Patient underwent penile debridement, penile degloving, circumcision, and penile plastics reconstruction with Dr. Antony approximately 1 month ago. He presents to the office today for a follow up s/p surgical procedure. In assessment of the patient today penis appears very well healed with no open areas or drainage noted. There are two dissolvable sutures present between to lee of glands and the neck of the penis. The testicles/scrotum are normal. When asked patient denies any urinary issues or concerns at this time. 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 In office urinalysis results reviewed with the patient today per when asked he denies any UTI like symptoms at this time. He denies urinary urgency, urinary frequency, incontinence, hematuria, dysuria, foul smelling urine, changes to urinary stream, flank pain, fever, and or chills. He does report nocturia up to 3 times per night however states he drinks an excessive amount of wine prior to bed and when he wakes up to urinate in the middle of the night he will also take shot of vodka. Discussed at length alcohol addiction. Discussed getting patient help however patient declines at this time. Discussed support groups, activities, and or hobbies. [facility] Medical History Alcohol dependence Anemia Chronic kidney disease Surgical History S/P bariatric surgery Social History Household Members: Children Household Members Other:: son Housing: Apartment Do you presently have visiting nurse or other home services: No Alcohol intake: current Alcohol intake frequency: 0-2 drinks per day Alcohol type: hard liquor Patient Tobacco Use Status: Current everyday Tobacco user Tobacco use type: Cigarette Cigarettes Per Day: 2 Substance Use Type: Crack/Cocaine service: No Current occupational status: employed Review of Systems Const Reports as per HPI Eyes Reports no additional complaints ENT Reports no additional complaints Card Reports no additional complaints Resp Reports no additional complaints GI Reports no additional complaints Reports as per HPI Musc Reports no additional complaints Neuro Reports no additional complaints Psych Reports no additional complaints Endo Reports no additional complaints Physical Exam Const Other: patient appears sallow General: cooperative, comfortable, no acute distress and well developed Orientation/consciousness: patient oriented x3 Limitations: no limitations HEENT Head: Yes normal to inspection, Yes normocephalic and Yes atraumatic Eyes General: appearance normal, both eyes and all related structures Chest Chest palpation & inspection: normal inspection of the chest Resp Effort & Inspection: normal respiratory effort and able to speak in complete sentences Cardio Rate: regular rate GI Inspection: Yes normal to inspection General: Yes no CVA tenderness Penis: normal penis and circumcised Meatus: meatus normal Scrotum: scrotum normal Testes: Testes normal Back/Spine/Pelvis Back: no CVA tenderness Skin General skin exam: no rashes or lesions noted Neuro General: patient oriented x3 Extrem Other: bilateral lower leg edema 2+ General: Yes normal to inspection Psych Appearance: grossly normal Mental Status: mental status grossly normal Speech and movement: Normal speech and movement present and Clear speech present Affect: normal affect Attitude: cooperative Thought process: Normal thought process present Results AMB Urinalysis, Automated UA Leukoctes 70 Veronika/uL Last Edit by Tirso Jordan on 10/28/22 15:52 UA Nitrite Positive Last Edit by Tirso Jordan on 10/28/22 15:52 UA Urobilinogen 0.2 mg/dL Last Edit by Tirso Jordan on 10/28/22 15:52 UA Protein 30 mg/dL Last Edit by Tirso Jordan on 10/28/22 15:52 UA pH 6.0 Last Edit by Tirso Jordan on 10/28/22 15:52 UA Blood 0 Anurag/uL Last Edit by Tirso Jordan on 10/28/22 15:52 UA Specific [place] 1.020 Last Edit by Tirso Jordan on 10/28/22 15:52 UA Ketone Negative Last Edit by Tirso Jordan on 10/28/22 15:52 UA Bilirubin 0 mg/dL Last Edit by Tirso Jordan on 10/28/22 15:52 UA Glucose 0 mg/dL Last Edit by Tirso Jordan on 10/28/22 15:52 Results Reviewed Results Reviewed: Laboratory Last Values Urine pH (Auto) 6.0 10/28/22 15:47 Specific [place] (Auto) 1.020 10/28/22 15:47 Urine Protein (Auto) 30 mg/dL 10/28/22 15:47 Glucose (UA)(Auto) 0 mg/dL 10/28/22 15:47 Urine Ketones (Auto) Negative 10/28/22 15:47 Urine Blood (Auto) 0 Anurag/uL 10/28/22 15:47 Urine Nitrite (Auto) Positive 10/28/22 15:47 Urine Bilirubin (Auto) 0 mg/dL 10/28/22 15:47 Urine Urobilinogen (Auto) 0.2 mg/dL 10/28/22 15:47 Leukocyte Esterase (Auto) 70 Veronika/uL 10/28/22 15:47 Assessment & Plan Assessment & Plan (1) Phimosis: Code(s): N47.1 - Phimosis (2) Penile erosion: Code(s): N48.89 - Other specified disorders of penis Plan In office urinalysis results reviewed with the patient today; he denies any UTI like symptoms Patient reports he will call back to [place] his home town and will follow-up with PCP Penis appears well-healed. No abnormalities noted to the penis, testicles, and or scrotum. Discussed at length affects of alcohol on the body as well as overall health and well-being. Discussed and offered further assistance with alcohol dependence however patient declines at this time. Follow up; PRN Orders: Orders AMB Urinalysis Automated Today Z13.9 - Encounter for screening, unspecified Patient Instructions: The patient had an opportunity to ask questions regarding the treatment plan. All questions were answered. Physical exam, labs, and imaging were discussed and reviewed in detail. As well as risks, benefits, and discussion of treatment choices. No major barriers to understanding were identified. The patient expressed understanding and agreement with the above treatment plan. The patient was made aware they should contact our office by phone for worsening of their current condition, the appearance of new symptoms, or with any questions or concerns. Compliance is encouraged with any medications and follow up testing that is ordered. It is a privilege to be allowed the opportunity to participate in? your urological care.? Again, if you have any questions or concerns If you have any questions or concerns please do not hesitate to contact me. The office is [phone]. This note is constructed using voice recognition software. While every effort has been made to ensure accuracy bicycle repair technician errors may have been included. Yours sincerely, JOSH De Leon Coding Level of Care Code Global (74990) Diagnoses Phimosis N47.1 Penile erosion N48.89 Time Spent (min) 30
== END 2022-10-28 16:07 | disposition home or self-care (01) ==
PROVIDERS: PCP Registered Nurse; Visit Provider Nurse Practitioner Family
DX: N47.1 Phimosis (principal); N48.89 Other specified disorders of penis
CPT/HCPCS: 99024

== ENCOUNTER → 2022-10-28 15:00 | Outpatient (BNVA) | payer BC, SELFPAY | PROVIDERS: PCP Registered Nurse; Visit Provider Nurse Practitioner Family ==

== ENCOUNTER 2022-11-04 08:45 | Emergency (ER) | payer BC, SELFPAY ==
[2022-11-04 08:58] VITALS: BP 114/69; PULSE 77; RESP 18; TEMP 36.2; O2SAT 98; BMI 24.4
--- NOTE | 2022-11-04 09:20 | ECG_ITS ---
Test Reason : WEAKNESS Blood Pressure : / mmHG Vent. Rate : 067 BPM Atrial Rate : 067 BPM P-R Int : 166 ms QRS Dur : 150 ms QT Int : 444 ms P-R-T Axes : 021 -26 013 degrees QTc Int : 469 ms Normal sinus rhythm Right bundle branch block Abnormal ECG No previous ECGs available Referred By: Suhail Biswas Electronically Signed By:Manny Rich
--- NOTE | 2022-11-04 09:25 | ED_ITS ---
HPI - General Adult General Chief complaint: General Medical Stated complaint: weakness Time Seen by Provider: 11/04/22 09:16 Source: patient Mode of arrival: ambulatory Limitations: no limitations History of Present Illness HPI narrative: This is 57 years old male with history of alcohol abuse presented to the [facility] department because generalized weakness. He is here with his sister she is concerned that he may be anemic. According to the sister he continued to drink. Patient denies any abdominal pain any fever any vomiting Onset (ago): day(s) (1) Radiation: non-radiation Severity: mild Quality: burning Pain Consistency: constant Relieving factors: none Exacerbating factors: none Associated symptoms: denies other symptoms Related Data Home Medications Medication Instructions Recorded Confirmed cyclobenzaprine 10 mg tablet 10 mg PO BEDTIME 09/11/22 09/11/22 ibuprofen 800 mg tablet 800 mg PO TID 09/11/22 09/11/22 lidocaine 5 % topical patch 1 patch topical DAILY 09/11/22 09/11/22 Previous Rx's Medication Instructions Recorded walker #1 ea 09/21/22 folic acid 1 mg tablet 1 mg PO DAILY #30 tabs 09/24/22 thiamine mononitrate (vit B1) 100 100 mg PO DAILY #30 tabs 09/24/22 mg tablet Allergies Allergy/AdvReac Type Severity Reaction Status Date / Time No Known Allergies Allergy Verified 10/28/22 18:47 Review of Systems Constitutional: Constitutional: Reports no additional constitutional complaints Eyes: Eyes: Reports no additional eye complaints Musculoskeletal: Musculoskeletal: Reports no additional musculoskeletal complaints [facility] Past Medical History Medical History Alcohol dependence Anemia Chronic kidney disease Surgical History S/P bariatric surgery Social History Social History Household Members: Children Household Members Other:: son Housing: Apartment Do you presently have visiting nurse or other home services: No Alcohol intake: current Alcohol intake frequency: 3 or more drinks per day Alcohol type: hard liquor Patient Tobacco Use Status: Current everyday Tobacco user Tobacco use type: Cigarette Cigarettes Per Day: 2 Smoked in Last 30 Days: Yes Use of substances other than those prescribed or required for medical reasons: Yes Substance Use Type: Marijuana Advance Directives: No Advance Directives Information Provided: No service: No Current occupational status: employed Physical Exam ED Vital Signs: Vital Signs - 24 hr 11/04/22 08:58 Temperature 97.2 F Pulse Rate 77 Respiratory Rate 18 Blood Pressure 114/69 Pulse Oximetry 98 Oxygen Delivery Method Room Air BMI result Body Mass Index 24.4 Const General: cooperative Nutritional Appearance: average body habitus Orientation/consciousness: patient oriented x3 Limitations: no limitations HENMT Head: Yes normal to inspection General nose exam: Normal external nose present Face and sinus: Yes normal facial exam Throat: Yes posterior oropharynx normal Eyes Other: mild jaundice General: appearance normal, both eyes and all related structures Neck Neck: Yes normal visual inspection, Yes full ROM and Yes no lymphadenopathy Thyroid: Thyroid normal Chest Chest palpation & inspection: normal inspection of the chest Resp Effort & Inspection: normal respiratory effort and able to speak in complete sentences Auscultation: clear to auscultation bilaterally Cardio Jugular venous distension: no JVD Rate: regular rate Rhythm: regular rhythm GI Inspection: Yes normal to inspection Palpation (GI): Soft to palpation, not firm, nontender and no guarding Skin General skin exam: no rashes or lesions noted Rashes: no rashes Wounds: no wounds Neuro General: patient oriented x3 Course Reevaluation(s) Reevaluation #1: Patient remain asymptomatic labs reviewed bilirubin is within normal limit, H&H is better today than before I think the patient can be discharged home Time: 10:59 Medical Decision Making Medical Decision Making [facility] Narrative: Patient presented to the emergency department with a chief complaint of possible anemia jaundice he has history of alcohol abuse we could check his labs LFT hemoglobin and reassessed patient is hemodynamically stable O ever is vital signs stable he has no fever assuming labs are normal I anticipate discharge Differential Diagnosis Differential Diagnoses: The differential diagnosis associated with the presentation includes Anemia/jaundice/liver failure/renal failure Admission/Observation Consideration of admission/observation: Escalation of care including admission/observation considered Lab Data [facility] Lab Attestation statement: I reviewed the patient's lab results. 11/04/22 09:56 11/04/22 09:56 Labs: Lab Results 11/04/22 11/04/22 11/04/22 Range/Units 09:56 09:56 09:56 WBC 5.5 (4.8-10.8) X10*3/uL RBC 2.96 L (4.60-5.80) X10*6/uL Hgb 8.8 L (14.0-18.0) g/dl Hct 27.4 L (42.0-52.0) % MCV 92.6 (80.0-98.0) fL MCH 29.7 (27.0-33.0) pg MCHC 32.1 (31.0-36.0) g/dl RDW 16.9 H (11.0-16.0) % Plt Count 205 (160-400) X10*3/uL MPV 9.7 (9.4-12.4) fL Immature Gran % (Auto) 0.2 (0.0-0.4) % Neut % (Auto) 68.2 (45-73) % Lymph % (Auto) 17.4 L (20-40) % [place] % (Auto) 10.4 (2-11) % Eos % (Auto) 3.1 (0-4) % Baso % (Auto) 0.7 (0-2) % Lymph # (Auto) 1.0 L (1.2-4.9) X10*3/uL [place] # (Auto) 0.6 (0.1-1.2) X10*3/uL Eos # (Auto) 0.2 (0.0-0.4) X10*3/uL Baso # (Auto) 0.0 (0.0-0.2) X10*3/uL Abs Immat Gran (auto) 0.01 (0.00-0.03) X10*3/uL Absolute Neuts (auto) 3.7 (2.0-8.3) x10*3/uL Absolute Nucleated RBC 0.000 (0.0-0.012) X10*3/uL Nucleated RBC % (auto) 0.0 (0.0-0.2) /100WBC Sodium 138 (135-145) mmol/L Potassium 4.8 (3.3-5.1) mmol/L Chloride 112 H (96-108) mmol/L Carbon Dioxide 21 L (22-29) mmol/L Anion Gap 10 L (12-20) BUN 22 H (9-16) mg/dL Creatinine 0.84 (0.5-1.4) mg/dL Estim Creat Clear Calc 109.0 Estimated GFR > 60 Random Glucose 83 (60-115) mg/dL Calcium 8.5 D (8.4-10.2) mg/dL Total Bilirubin 0.4 (0.0-1.0) mg/dL AST 40 H (5-37) U/L ALT 18 (0-40) U/L Alkaline Phosphatase 176 H (39-117) U/L Troponin I High Sens < 2.7 (<3.5-35.0) ng/L Total Protein 7.0 (6.5-8.0) g/dL Albumin 2.9 L (3.5-5.0) g/dL Urine Color Urine Appearance Urine pH (5.0-9.0) Ur Specific [place] (1.005-1.025) Urine Protein (Neg-Trace) mg/dL Urine Glucose (UA) (Negative) mg/dL Urine Ketones (Negative) mg/dL Urine Blood (Negative) Urine Nitrite (Negative) Ur Leukocyte Esterase (Negative) Urine RBC (0-2) /HPF Urine WBC (0-5) /HPF Ur Squamous Epith Cells (0-2) /HPF Urine Bacteria (None Seen) Hyaline Casts (0-2) /LPF Ethyl Alcohol mg/dL Blood Type Antibody Screen 11/04/22 11/04/22 11/04/22 Range/Units 09:56 09:56 09:58 WBC (4.8-10.8) X10*3/uL RBC (4.60-5.80) X10*6/uL Hgb (14.0-18.0) g/dl Hct (42.0-52.0) % MCV (80.0-98.0) fL MCH (27.0-33.0) pg MCHC (31.0-36.0) g/dl RDW (11.0-16.0) % Plt Count (160-400) X10*3/uL MPV (9.4-12.4) fL Immature Gran % (Auto) (0.0-0.4) % Neut % (Auto) (45-73) % Lymph % (Auto) (20-40) % [place] % (Auto) (2-11) % Eos % (Auto) (0-4) % Baso % (Auto) (0-2) % Lymph # (Auto) (1.2-4.9) X10*3/uL [place] # (Auto) (0.1-1.2) X10*3/uL Eos # (Auto) (0.0-0.4) X10*3/uL Baso # (Auto) (0.0-0.2) X10*3/uL Abs Immat Gran (auto) (0.00-0.03) X10*3/uL Absolute Neuts (auto) (2.0-8.3) x10*3/uL Absolute Nucleated RBC (0.0-0.012) X10*3/uL Nucleated RBC % (auto) (0.0-0.2) /100WBC Sodium (135-145) mmol/L Potassium (3.3-5.1) mmol/L Chloride (96-108) mmol/L Carbon Dioxide (22-29) mmol/L Anion Gap (12-20) BUN (9-16) mg/dL Creatinine (0.5-1.4) mg/dL Estim Creat Clear Calc Estimated GFR Random Glucose (60-115) mg/dL Calcium (8.4-10.2) mg/dL Total Bilirubin (0.0-1.0) mg/dL AST (5-37) U/L ALT (0-40) U/L Alkaline Phosphatase (39-117) U/L Troponin I High Sens (<3.5-35.0) ng/L Total Protein (6.5-8.0) g/dL Albumin (3.5-5.0) g/dL Urine Color Yellow Urine Appearance Clear Urine pH 5.5 (5.0-9.0) Ur Specific [place] 1.015 (1.005-1.025) Urine Protein Negative (Neg-Trace) mg/dL Urine Glucose (UA) Negative (Negative) mg/dL Urine Ketones Negative (Negative) mg/dL Urine Blood Negative (Negative) Urine Nitrite Positive H (Negative) Ur Leukocyte Esterase Moderate (2+) H (Negative) Urine RBC 0-2 (0-2) /HPF Urine WBC >50 H (0-5) /HPF Ur Squamous Epith Cells 0-2 (0-2) /HPF Urine Bacteria 4+ (None Seen) Hyaline Casts 0-2 (0-2) /LPF Ethyl Alcohol < 10 mg/dL Blood Type O Positive Antibody Screen NEGATIVE Discharge Plan Discharge Clinical Impression: Alcohol use disorder Patient Disposition: Home, Self-Care Instructions: Abuse of Alcohol (DC) Prescriptions: No Action cyclobenzaprine 10 mg tablet 10 mg PO BEDTIME ibuprofen 800 mg tablet 800 mg PO TID lidocaine 5 % adhesive patch,medicated 1 patch topical DAILY (DME) walker Misc See Rx Instructions .Route Qty: 1 0RF Rx Instructions: As directed folic acid 1 mg Tablet 1 mg PO DAILY Qty: 30 0RF thiamine mononitrate (vit B1) 100 mg Tablet 100 mg PO DAILY Qty: 30 0RF Interventions: ED Discharge Assessment Last Done: 11/04/22 11:09 Discharge Date/Time: 11/04/22 11:10
[2022-11-04 10:03] LABS: MANUAL DIFF FLAG NO
[2022-11-04 10:05] LABS: Basophils Percent Auto 0.7 % (0-2); Eosinophils Absolute Auto 0.2 X10*3/uL (0.0-0.4); Eosinophils Percent Auto 3.1 % (0-4); Hematocrit 27.4 % (42.0-52.0); Hemoglobin 8.8 g/dl (14.0-18.0); Imm Gran Abs Auto 0.01 X10*3/uL (0.00-0.03); Imm Gran Pct Auto 0.2 % (0.0-0.4); Lymphocytes Percent Auto 17.4 % (20-40); Mean Corpuscular HGB Conc 32.1 g/dl (31.0-36.0); Mean Corpuscular Hemoglobin 29.7 pg (27.0-33.0); Mean Corpuscular Volume 92.6 fL (80.0-98.0); Mean Platelet Volume 9.7 fL (9.4-12.4); Monocytes Absolute Auto 0.6 X10*3/uL (0.1-1.2); Monocytes Percent Auto 10.4 % (2-11); Neutrophils Absolute Auto 3.7 x10*3/uL (2.0-8.3); Neutrophils Percent Auto 68.2 % (45-73); Platelet Count 205 X10*3/uL (160-400); Red Blood Count 2.96 X10*6/uL (4.60-5.80); Red Cell Distribution Width 16.9 % (11.0-16.0); White Blood Count 5.5 X10*3/uL (4.8-10.8)
[2022-11-04 10:07] LABS: Appearance Urine Clear; Color Urine Yellow; Glucose Urine UA Negative (Negative); Leukocyte Esterase Urine Moderate (2+) (Negative); Nitrite Urine Positive (Negative); PH 5.5 (5.0-9.0); Specific Gravity - Urine 1.015 (1.005-1.025); UMIC TRIGGER UACC YES; Urine Blood Negative (Negative); Urine Ketones Negative (Negative); Urine Protein Negative (Neg-Trace)
[2022-11-04 10:10] LABS: Bacteria Urine 4+ (None Seen); Hyaline Casts Urine 0-2 /LPF (0-2); RBC Urine 0-2 /HPF (0-2); Squamous Epithelial Cell Urine 0-2 /HPF (0-2); UACC Culture Trigger YES; WBC Urine >50 /HPF (0-5)
[2022-11-04 10:18] LABS: Ethanol < 10 mg/dL
[2022-11-04 10:29] LABS: Anion Gap 10 (12-20); Troponin-I High Sensitivity < 2.7 ng/L (<3.5-35.0)
[2022-11-04 10:33] LABS: Alanine Aminotransferase 18 U/L (0-40); Albumin Level 2.9 g/dL (3.5-5.0); Alkaline Phosphatase 176 U/L (39-117); Aspartate Amino Transferase 40 U/L (5-37); Bilirubin Total 0.4 mg/dL (0.0-1.0); Blood Urea Nitrogen 22 mg/dL (9-16); Calcium 8.5 mg/dL (8.4-10.2); Carbon Dioxide 21 mmol/L (22-29); Chloride 112 mmol/L (96-108); Estimated Glomerular Filt Rate > 60; Glucose Random 83 mg/dL (60-115); Potassium 4.8 mmol/L (3.3-5.1); Sodium 138 mmol/L (135-145)
== END 2022-11-04 11:10 | disposition home or self-care (01) ==
PROVIDERS: Emergency Provider Emergency Medicine
DX: F10.10 Alcohol abuse, uncomplicated (principal); Y90.0 Blood alcohol level of less than 20 mg/100 ml; R53.1 Weakness; N39.0 Urinary tract infection, site not specified; B96.20 Unspecified Escherichia coli [E. coli] as the cause of diseases classified elsewhere; Z79.899 Other long term (current) drug therapy; F17.210 Nicotine dependence, cigarettes, uncomplicated
CPT/HCPCS: 36415; 80053; 80307; 81001; 84484; 85025; 86850; 86900; 86901; 87086; 87088; 87186; 93005; 99283; 99284

== ENCOUNTER → 2022-11-04 09:20 | Outpatient (BNV) | payer BC, SELFPAY | PROVIDERS: Emergency Provider Emergency Medicine; Visit Provider Internal Medicine Cardiovascular Disease | DX: R53.1 Weakness (principal) | CPT/HCPCS: 93010 ==

== ENCOUNTER 2023-05-31 00:25 | Inpatient (IN) | payer BC, SELFPAY ==
[2023-05-31] VITALS (12 sets, daily range): BP systolic 95–132; BP diastolic 56–75; PULSE 72–96; RESP 16–20; TEMP 36.1–37.1; O2SAT 95–97; BMI 30.7
--- NOTE | ~2023-05-31 | US_ITS ---
EXAMINATION: US VENOUS ULTRASOUND WITH DOPPLER LOWER EXTREMITY, RIGHT CLINICAL INFORMATION: Edema COMPARISON: None available. TECHNIQUE: Ultrasound of the deep veins is performed from the hip to the calf with compression sonography and color and pulse Doppler assessment. Spectral analysis with color-flow imaging is performed. FINDINGS: There is normal venous compression and respiratory variation and augmented flow. The visualized common femoral vein, superficial femoral vein, profunda femoral vein, popliteal vein, and the trifurcation region shows no evidence of deep venous thrombosis. There is no significant popliteal fossa cyst. There is moderate edema seen throughout the thigh and calf. Small heterogeneous lymph node seen in the right groin measuring 3.2 cm. If the patient's symptoms persist, followup ultrasound in 5 days 7 days might be of value to exclude proximal propagation from a non-visualized calf vein. US/US venous duplex LE RT IMPRESSION: No DVT demonstrated in the right lower extremity. There is moderate edema seen throughout the right lower leg Prominent right groin lymph node, slightly heterogeneous, likely secondary to the right lower leg edema.
--- NOTE | ~2023-05-31 | US_ITS ---
Limited ultrasound abdomen History: Concern for SBP. Cirrhosis. Ascites. Findings: Significant abdominal wall edema is present. Trace perihepatic and pelvic ascites is present, not amenable to percutaneous sampling, despite multiple attempts to reposition the patient. 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 The procedure was performed by Christopher Camarena PA-C and supervised by Dr. Olson. US/US abdomen limited pre post Impression: Trace perihepatic and pelvic ascites not amenable to percutaneous sampling No immediate complications
--- NOTE | ~2023-05-31 | US_ITS ---
EXAMINATION: COMPLETE ABDOMINAL ULTRASOUND WITH DOPPLER INTERROGATION CLINICAL INFORMATION: Alcoholic liver disease COMPARISON: CT abdomen and pelvis 05/31/2023, 09/11/2022 TECHNIQUE: Real-time imaging of the abdominal viscera. Doppler interrogation and spectral analysis was performed. FINDINGS: PANCREAS: Not visualized due to bowel gas ABDOMINAL AORTA: Not visualized INFERIOR VENA CAVA: Not visualized LIVER: The visualized liver demonstrates increased echogenicity. DOPPLER INTERROGATION: Unable to visualize portal veins. The hepatic arteries are patent. The hepatic veins are patent with normal direction of flow. GALLBLADDER: Not visualized COMMON BILE DUCT: Not visualized RIGHT KIDNEY: Not visualized. LEFT KIDNEY: Partially visualized, and normal appearing. SPLEEN: Not visualized FREE FLUID: Moderate ascites US/US duplex arterial venous comp IMPRESSION: Extremely limited exam due to bowel gas and ascites. The hepatic arteries and hepatic veins are patent. The portal veins could not be visualized.
--- NOTE | ~2023-05-31 | XR_ITS ---
EXAMINATION: XR CHEST CLINICAL INFORMATION: Evaluate pneumonia. COMPARISON: None available. TECHNIQUE: Frontal view of the chest was obtained. FINDINGS: Study limited by low lung volumes and positioning. Heart and mediastinum within normal limits. Vessel crowding is seen. Increased markings with air bronchograms identified at the medial right base. There is elevated right hemidiaphragm. Curvilinear opacity overlying the right hemithorax likely superimposition of tissues. Bony structures are intact. Upper abdominal surgical clips are seen. XR/XR chest 1V IMPRESSION: Limited study, low lung volumes and likely vessel crowding. Right middle lobe pneumonia questioned. PA and lateral recommended when feasible.
--- NOTE | ~2023-05-31 | CT_ITS ---
EXAMINATION: CT ABDOMEN AND PELVIS WITH CONTRAST CLINICAL INFORMATION: Abdominal pain COMPARISON: None available. TECHNIQUE: Multidetector volumetric images were obtained from the superior aspect of the liver through the pubic symphysis following administration 85 mL of Omnipaque 350 intravenous contrast. Sagittal and coronal reformatted images were obtained on the technologist's workstation. Oral contrast: No This CT examination was performed using dose optimization techniques as appropriate, variously including the following: *Automated exposure control *Adjustment of mA and/or kV according to patient size (this includes techniques or standardized protocols for targeted exams where dose is matched to indication/reason for exam; i.e. extremities or head) *Use of iterative reconstruction technique DLP: 774 mGy-cm FINDINGS: LUNG BASES: There is bibasilar atelectasis. The heart size is normal. LIVER, GALLBLADDER, AND BILIARY TREE: The liver is normal size and contour. It is diffusely heterogeneous with several patchy hypodensities and perihepatic ascites. The gallbladder has been surgically removed. PANCREAS: Unremarkable. SPLEEN: Unremarkable. ADRENAL GLANDS: Unremarkable. KIDNEYS AND URETERS: The kidneys are normal in size, shape, and attenuation. No hydronephrosis, hydroureter, or calculi seen. No perinephric stranding. There are bilateral peripelvic cyst. There is contrast visualized in the kidney pelvis and proximal ureters without hydronephrosis. BLADDER: The bladder is opacified with excreted urinary contrast without intraluminal filling defect and bladder wall thickening. GASTROINTESTINAL TRACT: There is diffuse mural thickening involving the entire colon, IC junction and terminal ileum with pericolic haziness. There are postsurgical changes involving a loop of small bowel in the right midabdomen. There is sacralization of distal small lobe likely secondary to stasis and inflammatory changes of the distal ileum and the colon. There is mild free fluid but no free air seen. There is diffuse mesenteric haziness suggestive of edema ABDOMINAL WALL: There are several midline anterior abdominal wall hernias containing fat. Epigastric region on axial image 33/4, upper/mid abdomen axial image 45/4 and 48/4, midabdomen axial image 56/4, lower anterior abdominal wall image 65/4. There is diffuse cellulitis most prominent in the right mid and lower abdomen and bilateral buttocks. LYMPH NODES: Normal. VASCULAR: Unremarkable. PELVIC VISCERA: Unremarkable. OSSEOUS STRUCTURES: There is compression deformity L2 T12 and T11 vertebra. There is mild ventral spondylosis lower dorsal and upper lumbar spine. No aggressive lytic or sclerotic process seen. CT/CT abdomen pelvis w IV con IMPRESSION: 1. Diffuse mural thickening involving the entire colon and terminal ileum with pericolic haziness and mild free fluid. Findings consistent with diffuse colitis No free air seen. There are postsurgical changes involving a loop of small bowel in the right midabdomen. Fecal residue seen in small bowel likely secondary to stasis. No pneumatosis seen. 2. Diffuse cellulitis most prominent in the right mid and lower abdomen and bilateral buttocks. There is mesenteric edema as well. 3. Multiple midline anterior abdominal wall hernias containing fat. 4. Bilateral peripelvic cyst. Bilateral proximal ureters are opacified and normal. There is no hydroureteronephrosis. 5. Diffuse hepatic steatosis. Because of diffuse heterogeneity hepatic lesion cannot excluded. There is perihepatic ascites. Fleischner guidelines were followed.
[2023-05-31 01:37] LABS: MANUAL DIFF FLAG NO
[2023-05-31 01:38] LABS: Basophils Absolute Auto 0.1 X10*3/uL (0.0-0.2); Basophils Percent Auto 1.2 % (0-2); Eosinophils Absolute Auto 0.1 X10*3/uL (0.0-0.4); Eosinophils Percent Auto 1.5 % (0-4); Imm Gran Abs Auto 0.03 X10*3/uL (0.00-0.03); Imm Gran Pct Auto 0.3 % (0.0-0.4); Lymphocytes Absolute Auto 1.2 X10*3/uL (1.2-4.9); Lymphocytes Percent Auto 12.7 % (20-40); Mean Corpuscular HGB Conc 35.7 g/dl (31.0-36.0); Mean Corpuscular Hemoglobin 32.3 pg (27.0-33.0); Mean Corpuscular Volume 90.3 fL (80.0-98.0); Mean Platelet Volume 11.9 fL (9.4-12.4); Monocytes Absolute Auto 1.1 X10*3/uL (0.1-1.2); Monocytes Percent Auto 11.7 % (2-11); Neutrophils Absolute Auto 6.7 x10*3/uL (2.0-8.3); Neutrophils Percent Auto 72.6 % (45-73); Platelet Count 127 X10*3/uL (160-400); Red Blood Count 2.17 X10*6/uL (4.60-5.80); Red Cell Distribution Width 19.5 % (11.0-16.0); White Blood Count 9.2 X10*3/uL (4.8-10.8)
[2023-05-31 01:42] LABS: Hematocrit 19.6 % (42.0-52.0)
[2023-05-31 01:53] LABS: Alanine Aminotransferase 42 U/L (0-40); Albumin Level 1.9 g/dL (3.5-5.0); Alkaline Phosphatase 161 U/L (39-117); Anion Gap 14 (12-20); Aspartate Amino Transferase 95 U/L (5-37); Bilirubin Total 3.1 mg/dL (0.0-1.0); Blood Urea Nitrogen 11 mg/dL (9-16); Calcium 6.7 mg/dL (8.4-10.2); Carbon Dioxide 18 mmol/L (22-29); Chloride 113 mmol/L (96-108); Creatinine Clr Calc Pharmacy 118.8; Estimated Glomerular Filt Rate > 60; Ethanol 91 mg/dL; Glucose Random 129 mg/dL (60-115); Potassium 3.5 mmol/L (3.3-5.1); Sodium 141 mmol/L (135-145); Total Protein 6.9 g/dL (6.5-8.0)
[2023-05-31 04:57] LABS: OBS Int Ctl Valid YES; OBS1 POSITIVE (NEGATIVE)
--- NOTE | 2023-05-31 05:43 | ED_ITS ---
HPI - Recheck/Abnormal Lab/Rx General Chief Complaint: Recheck/Abnormal Lab/Rx Stated Complaint: dizziness Time Seen by Provider: 05/31/23 03:31 Source: patient and family (Sister) Mode of arrival: ambulatory History of Present Illness HPI narrative: 57-year-old male with longstanding alcohol history and continues to drink alcohol daily, denies any hematemesis or or black stools is brought in by his sister after she signed him out from [facility] and brought him up to [place] to this emergency room for further evaluation. Patient states that he has had ongoing dizziness and generalized swelling. Related Data Home Medications Medication Instructions Recorded Confirmed cyclobenzaprine 10 mg tablet 10 mg PO BEDTIME 09/11/22 09/11/22 ibuprofen 800 mg tablet 800 mg PO TID 09/11/22 09/11/22 lidocaine 5 % topical patch 1 patch topical DAILY 09/11/22 09/11/22 Previous Rx's Medication Instructions Recorded walker #1 ea 09/21/22 folic acid 1 mg tablet 1 mg PO DAILY #30 tabs 09/24/22 thiamine mononitrate (vit B1) 100 100 mg PO DAILY #30 tabs 09/24/22 mg tablet cefuroxime axetil 250 mg tablet 250 mg PO BID 7 days #14 tabs 11/09/22 Allergies Allergy/AdvReac Type Severity Reaction Status Date / Time No Known Allergies Allergy Verified 05/31/23 01:00 Review of Systems 2 Review of Systems: Pertinent positives and negatives as stated in HPI PMFSH Past Medical History Source: nursing notes reviewed Medical History Anemia Chronic kidney disease Alcohol dependence Surgical History S/P bariatric surgery Social History Social History Household Members: Children Household Members Other:: son Housing: Apartment Do you presently have visiting nurse or other home services: No Alcohol intake: current Alcohol intake frequency: 3 or more drinks per day Alcohol type: hard liquor Patient Tobacco Use Status: Current everyday Tobacco user Tobacco use type: Cigarette Cigarettes Per Day: 2 Substance Use Type: Marijuana service: No Current occupational status: employed Physical Exam 2 Vital Signs: Vital Signs: Last Vital Signs Temp 98.2 F 05/31/23 05:03 Pulse 84 05/31/23 05:03 Resp 16 05/31/23 05:03 BP 118/64 05/31/23 05:03 Pulse Ox 96 05/31/23 05:03 O2 Del Method Room Air 05/31/23 05:03 BMI result Body Mass Index 30.7 VITAL SIGNS: Reviewed. GENERAL: Chronically ill, in poor health, in no acute distress. HEAD: Normocephalic/atraumatic EYES: PERRLA, EOMI, scleral icterus EARS: Ext canals without abnormality NOSE: Nares patent bilateral OROPHARYNX: no oral lesions noted, posterior pharynx clear NECK: Supple, no adenopathy LUNGS: Normal breath sounds. No adventitious sounds or accessory muscle use. SpO2<96> CARDIOVASCULAR: Regular rate and rhythm without noted murmurs, no JVD but noted to have right lower extremity nonpitting edema ABDOMEN: Soft, non-tender, non-distended with bowel sounds, there is noted edema to the lower abdomen REESE: Soft brown stool MUSCULOSKELETAL: No tenderness, deformities, or effusions noted on gross inspection. EXTREMITIES: No cyanosis, clubbing or edema. SKIN: Inspection of the skin reveals no rashes, but jaundice is apparent NEUROLOGIC: Alert and oriented x 3. Strength and sensation to light touch were grossly intact x 4. Medical Decision Making Medical Decision Making MDM Narrative: This is a 57-year-old male with history and clinical presentation, DDX: Chronic alcohol use and suspected abdominal ascites, I did review the extensive amount of paperwork that the sister provides from [facility]. It does appear that patient was identified to have colitis on the CT scan that there are no laboratory studies to indicate what type of colitis and no evidence of a leukocytosis at that time. Patient is currently afebrile in this emergency room. In addition, patient on review of all prior lab work here in this institution in comparison to [facility] patient has a chronic anemia as well as chronic thrombocytopenia. There was a DVT steady conducted on patient's right lower extremity which was negative for evidence of DVT. Patient also had a CT of the head without any acute findings intracranially. Review you would all investigations here and patient does demonstrate without leukocytosis or left shift but has a normocytic anemia that is mildly worsened on comparison to prior values. Patient typed and screened and 1 unit of RBCs have been ordered. Patient also has a noted thrombocytopenia and stool guaiac is noted to be positive. Coagulation studies noted to be mildly deranged likely secondary to liver disease. Chemistry indices do not demonstrate an MAKENNA and there is no electrolyte derangement but significant liver enzyme derangements are noted with an elevated bilirubin of 3.1 and elevated transaminases but these are likely secondary to recent ingestion of alcohol and last comparison from [facility] demonstrates similar laboratory findings. I discussed this case with inpatient hospitalist who accepts admission and recommends repeat CT scan but no antibiotics at this time as patient does not have an elevated white count and is afebrile despite findings colitis on [facility] CT scan. Recommendation at this time is for phenobarb protocol, CT scan, 1 unit of PRBCs. Differential Diagnosis Differential Diagnoses: The differential diagnosis associated with the presentation includes Please see the discussion above Admission/Observation Consideration of admission/observation: Escalation of care including admission/observation considered Please see the discussion above Consult Healthcare Provider Management of the patient was discussed with: Hospitalist Please see the discussion above Lab Data MDM Lab Attestation statement: I reviewed the patient's lab results. Please see the discussion above 05/31/23 01:33 05/31/23 01:33 Labs: Lab Results 05/31/23 05/31/23 Range/Units 01:33 04:52 WBC 9.2 (4.8-10.8) X10*3/uL RBC 2.17 L D (4.60-5.80) X10*6/uL Hgb 7.0 L* D (14.0-18.0) g/dl Hct 19.6 L* D (42.0-52.0) % MCV 90.3 (80.0-98.0) fL MCH 32.3 (27.0-33.0) pg MCHC 35.7 (31.0-36.0) g/dl RDW 19.5 H (11.0-16.0) % Plt Count 127 L D (160-400) X10*3/uL MPV 11.9 (9.4-12.4) fL Immature Gran % (Auto) 0.3 (0.0-0.4) % Neut % (Auto) 72.6 (45-73) % Lymph % (Auto) 12.7 L (20-40) % Cocke % (Auto) 11.7 H (2-11) % Eos % (Auto) 1.5 (0-4) % Baso % (Auto) 1.2 (0-2) % Lymph # (Auto) 1.2 (1.2-4.9) X10*3/uL Cocke # (Auto) 1.1 (0.1-1.2) X10*3/uL Eos # (Auto) 0.1 (0.0-0.4) X10*3/uL Baso # (Auto) 0.1 (0.0-0.2) X10*3/uL Abs Immat Gran (auto) 0.03 (0.00-0.03) X10*3/uL Absolute Neuts (auto) 6.7 (2.0-8.3) x10*3/uL Absolute Nucleated RBC 0.000 (0.0-0.012) X10*3/uL Nucleated RBC % (auto) 0.0 (0.0-0.2) /100WBC Sodium 141 (135-145) mmol/L Potassium 3.5 (3.3-5.1) mmol/L Chloride 113 H (96-108) mmol/L Carbon Dioxide 18 L (22-29) mmol/L Anion Gap 14 (12-20) BUN 11 (9-16) mg/dL Creatinine 0.87 (0.5-1.4) mg/dL Estim Creat Clear Calc 118.8 Estimated GFR > 60 Random Glucose 129 H (60-115) mg/dL Calcium 6.7 L D (8.4-10.2) mg/dL Total Bilirubin 3.1 H (0.0-1.0) mg/dL AST 95 H (5-37) U/L ALT 42 H (0-40) U/L Alkaline Phosphatase 161 H (39-117) U/L Total Protein 6.9 (6.5-8.0) g/dL Albumin 1.9 L (3.5-5.0) g/dL Stool Occult Blood POSITIVE (NEGATIVE) Ethyl Alcohol 91 mg/dL Blood Type O Positive Antibody Screen NEGATIVE Radiology Impression Discussion of test interpretation with radiology: I have reviewed the radiologist's reading. Radiologist Impression: Please see the discussion above External Record Review External record reviewed: Outpatient record, Prior outpatient labs, Prior outpatient radiology and Outside ED record Chronic Conditions Patient?s care impacted by: Other Alcohol use disorder Social Determinants Patient?s care significantly limited by Social Determinants of Health including: Alcoholism and drug addiction in family Critical Care Time Critical Care Time Critical Care Time: Yes Total Critical Care Time: 90 Attestation: I personally attest to this time spent taking care of the patient. Discharge Plan Discharge Clinical Impression: Anemia, Dizziness, Alcohol intoxication, Alcohol use disorder Patient Disposition: Admitted As Inpatient Prescriptions: No Action cefuroxime axetil 250 mg tablet 250 mg PO BID 7 Days Qty: 14 0RF cyclobenzaprine 10 mg tablet 10 mg PO BEDTIME ibuprofen 800 mg tablet 800 mg PO TID lidocaine 5 % adhesive patch,medicated 1 patch topical DAILY (DME) jenni Donovan See Rx Instructions .Route Qty: 1 0RF Rx Instructions: As directed folic acid 1 mg Tablet 1 mg PO DAILY Qty: 30 0RF thiamine mononitrate (vit B1) 100 mg Tablet 100 mg PO DAILY Qty: 30 0RF
[2023-05-31] MEDS: iohexoL 350 MG/ML 100 ML INFUS..BTL 85 ML IV (06:14)
--- NOTE | 2023-05-31 06:50 | PC.NURSE ---
pt being admitted for low H&H. #20g iv placed in left forearm, blood transfusion 1 unit rbcs started at 0636. pt tolerating well. resting comfortably on stretcher, respirations even and unlabored. pt offers no current complaints, denies cp or sob. call asencio within reach - plan of care ongoing.
[2023-05-31] MEDS: PHENobarbitaL sodium 130 MG/ML IM ONCE 374 MG IM (07:16)
--- NOTE | 2023-05-31 07:53 | PHA.MEDREC ---
Pharmacy Consult ? Medication Reconciliation Pharmacy has completed the medication reconciliation. Confirmed medications with patient
--- NOTE | 2023-05-31 09:27 | PC.NURSE ---
blood has finished infusing. vitals stable. pt reports no pain.
--- NOTE | 2023-05-31 10:17 | P.HPHOSP_ITS ---
History of Present Illness Date of Service: 05/31/23 Chief Complaint: weakness The patient is a 57 year old male with a PMH of alcohol use and dependence, MAKENNA/CKD(likely stage 2) and bariatric surgery who presented to [facility] ED accompanied by his sister. The patient who is a resident in the [place], was brought here to [facility] as the patient's sister is planning to move him here. On the day prior to admission, the patient was apparantly admitted at a hospital in [facility]. Unclear the reason for admission, but per patient reports, it was for leg swelling and weakness. The patient is a vague historian. He reports weakness but denies other complaints. He denies current diarrhea, although reports some last week. He denies melena / hematemesis. He reports daily drinking, with the last drink about the day before admission. He denies any fevers or chills. He is unsure if he was prescribed any antibiotics in the recent past. In the ED, work up revealed diffuse coliitis on CT. His H/H is around 7. He has been given 1 unit PRBC and initiated on phenobarbital. He will be admitted for further work up. Pt seen and examined around 10am. He appears comfortable, but some what confused. He has obvious asterixis. He is oriented to self and time. Review of Systems 2 Review of Systems: Negative except HPI/interval history. [facility] Medical History Anemia Chronic kidney disease Alcohol dependence Surgical History S/P bariatric surgery Social History Household Members: Children Household Members Other:: son Housing: Apartment Do you presently have visiting nurse or other home services: No Alcohol intake: current Alcohol intake frequency: 3 or more drinks per day Alcohol type: hard liquor Patient Tobacco Use Status: Current everyday Tobacco user Tobacco use type: Cigarette Cigarettes Per Day: 2 Use of substances other than those prescribed or required for medical reasons: No Substance Use Type: Marijuana Advance Directives: No Advance Directives Information Provided: Yes service: No Current occupational status: employed Meds Allergies Allergy/AdvReac Type Severity Reaction Status Date / Time No Known Allergies Allergy Verified 05/31/23 01:00 Active Medications: Current Medications Pharmacy Consult (Consult Rx Etoh Phenob Im/Po) 1 each MISCELLANE ONCE PRN; Protocol PRN Reason: Consult order Phenobarbital (Phenobarbital 30 Mg Tablet) 60 mg PO BID [facility] Stop: 06/02/23 09:01 Phenobarbital (Phenobarbital 30 Mg Tablet) 30 mg PO BID [facility] Stop: 06/04/23 09:01 Phenobarbital (Phenobarbital 30 Mg Tablet) 30 mg PO DAILY [facility] Stop: 06/06/23 09:01 Phenobarbital Sodium (Phenobarbital Sodium 130 Mg/Ml Vial Im Q3hx2) 280 mg IM Q3H [facility] Stop: 05/31/23 12:01 Home Medications Medication Instructions Recorded Confirmed Last Taken Type esomeprazole magnesium 20 mg 20 mg PO DAILY PRN Heartburn 05/31/23 05/31/23 Unknown History capsule,delayed release (Nexium) ibuprofen 600 mg tablet 600 mg PO TID 05/31/23 05/31/23 Unknown History Physical Exam 2 Vital Signs and Narrative: Vital Signs: Last Vital Signs Temp 98.0 F 05/31/23 10:10 Pulse 95 05/31/23 10:10 Resp 19 05/31/23 10:10 BP 106/61 05/31/23 10:10 Pulse Ox 96 05/31/23 09:26 O2 Del Method Room Air 05/31/23 09:26 BMI result Body Mass Index 30.7 Const: Other: Constitutional - Awake and Alert, No apparent distress; oriented to self and time, disoriented to person/location/situation Eyes - PERRLA, EOMI Cardiovascular - S1S2, RRR, No edema Respiratory - Normal lung expansion, Normal respiratory effort, No respiratory distress, CTA bilaterally Gastrointestinal - NT / ND; +BS; No rebound or guarding - No CVA tenderness Extremities - b/l LE swelling; R>L; appears to have lymphedema on the R Musculoskeletal - Normal inspection, normal ROM Skin - Warm/Dry Neurological - +asterixis; AAOx2; non-focal exam Psychological - Appropriate affect Results Labs 05/31/23 01:33 05/31/23 01:33 Labs: Laboratory Results - last 24 hr 05/31/23 05/31/23 01:33 04:52 MCV 90.3 MCH 32.3 MCHC 35.7 RDW 19.5 H Plt Count 127 L D MPV 11.9 Immature Gran % (Auto) 0.3 Neut % (Auto) 72.6 Lymph % (Auto) 12.7 L Yates % (Auto) 11.7 H Eos % (Auto) 1.5 Baso % (Auto) 1.2 Lymph # (Auto) 1.2 Yates # (Auto) 1.1 Eos # (Auto) 0.1 Baso # (Auto) 0.1 Abs Immat Gran (auto) 0.03 Absolute Neuts (auto) 6.7 Absolute Nucleated RBC 0.000 Nucleated RBC % (auto) 0.0 Anion Gap 14 Estim Creat Clear Calc 118.8 Estimated GFR > 60 Random Glucose 129 H Calcium 6.7 L D Total Bilirubin 3.1 H AST 95 H ALT 42 H Alkaline Phosphatase 161 H Total Protein 6.9 Albumin 1.9 L Stool Occult Blood POSITIVE Ethyl Alcohol 91 Blood Type O Positive Antibody Screen NEGATIVE Crossmatch See Detail Imaging Radiologist's Impressions: Impressions Abdomen/Pelvis CT 05/31/23 06:05 IMPRESSION: 1. Diffuse mural thickening involving the entire colon and terminal ileum with pericolic haziness and mild free fluid. Findings consistent with diffuse colitis No free air seen. There are postsurgical changes involving a loop of small bowel in the right midabdomen. Fecal residue seen in small bowel likely secondary to stasis. No pneumatosis seen. 2. Diffuse cellulitis most prominent in the right mid and lower abdomen and bilateral buttocks. There is mesenteric edema as well. 3. Multiple midline anterior abdominal wall hernias containing fat. 4. Bilateral peripelvic cyst. Bilateral proximal ureters are opacified and normal. There is no hydroureteronephrosis. 5. Diffuse hepatic steatosis. Because of diffuse heterogeneity hepatic lesion cannot excluded. There is perihepatic ascites. Fleischner guidelines were followed. Assessment and Plan (1) Alcohol use disorder: Status: Acute Plan 57 yo M with history of alcohol abuse and dependence who presents with weakness. He is found to have acute on chronic anemia, +FOBT and CT evidence of coliitis. He also appears to have some hepatic encephalopathy. He will be admitted for further work up. 1. Acute hepatic encephalopathy pt with +asterixis on exam and is disoriented He is not on lactulose at baseline will commence 20gm BID 2. Alcoholic liver disease and dependence, at high risk for withdrawal alcohol cessation has been discussed in detail with the sister and patient initiated on phenobarb -- continue monitor with CIWA MVI/Thiamin will consult addiction medicine 3. Pancolitis pt denies current symptoms including diarrhea / pain will hold off on antibiotics and send stool studies GI as above 4. Acute on chronic anemia, possible GI bleed s/p 1 unit prbc trend h/h Full Code DVT pptx, mechanical due to suspected GI bleed/anemia Patient with multiple active issues including encephalopathy/withdrawal/anemia which will require close monitoring/treatment and expert consultation. Therefore, his admission is expected to span 2 midnights and hence, he will be admitted as inpatient. Endorses his sister Rubi as his HCP Quality Stroke Does the patient have a stroke diagnosis?: No VTE Prior VTE?: No VTE Risk Level:: Medical - moderate - high VTE Device Contraindication: N/A - Device Ordered VTE Drug Contraindication: Treatment Not Indicated
[2023-05-31] MEDS: PHENobarbitaL sodium 130 MG/ML VIAL IM Q3Hx2 280 MG IM ×2 (10:20→15:15)
[2023-05-31 11:06] LABS: Mean Corpuscular HGB Conc 35.6 g/dl (31.0-36.0); Mean Corpuscular Hemoglobin 30.8 pg (27.0-33.0); Mean Corpuscular Volume 86.6 fL (80.0-98.0); Platelet Count 110 X10*3/uL (160-400); Red Blood Count 2.24 X10*6/uL (4.60-5.80); Red Cell Distribution Width 23.1 % (11.0-16.0); White Blood Count 7.9 X10*3/uL (4.8-10.8)
[2023-05-31 11:12] LABS: Ammonia 116 umol/L (13-55)
[2023-05-31 11:15] LABS: Hematocrit 19.4 % (42.0-52.0)
[2023-05-31 11:17] LABS: Hemoglobin 6.9 g/dl (14.0-18.0)
[2023-05-31] MEDS: Thiamine HCL 100 MG TABLET PO (11:31)
[2023-05-31] MEDS: Lactulose 20 GM/30 ML SOLUTION PO ×3 (11:31→19:51)
[2023-05-31] MEDS: Omeprazole 40 MG CAPSULE.DR PO (11:31)
[2023-05-31] MEDS: Multivitamin TABLET 1 TAB PO (11:31)
--- NOTE | 2023-05-31 11:33 | PM.GICN ---
History of Present Illness Data of Consult Service Date: 05/31/23 Requesting physician: Asad Navarro Primary Care Provider: Unknown Physician HPI Reason for consult: GI bleeding This is a 57-year-old gentleman with past medical history of polysubstance use disorder including alcohol and cocaine, who was brought to the hospital by his sister for weakness and fatigue. History was obtained from the pt who reports he had been feeling weak, tired and lightheaded for the past few days. Does not report any abd pain, N,V, D. No blood in stool. He does report having abd pain with vomiting and diarrhea last week for which he was admitted to [facility]. Pt is originally from [place], [place]. He also reports significant R leg swelling. Pt reports being told about liver disease earlier last year. Cont to drink a pint of hard liquor every day. Last drink was yest morning (x2 shots). Has had hospital visits for intoxication/withdrawal in the past but has never been to a rehab as per his report. Also reports prev drug use, last used cocaine in Feb 2023. He also is not under a care of blocklayer/medical concierge and has never had any upper or lower endoscopy. Pt's sister brought him [place] [facility] where in the ER he was found to be anemic with hemoglobin of 6.9, down from previously known hemoglobin of 8.8 last year. Gastroenterology has been consulted for question of GI bleeding. Pt also underwent CT abd/pel which shows signs of portal HTN as well as patchy hypodensities in the liver . Of note CT abd/pel last year showed 1.4cm lesion in L liver and unclear if it was followed up as outpatient. Review of Systems Review of Systems: Yes all other systems are reviewed and are negative [facility] Past Medical History Medical History Anemia Chronic kidney disease Alcohol dependence Surgical History Surgical History S/P bariatric surgery Social History Social History Household Members: Children Household Members Other:: 2 Housing: Apartment Do you presently have visiting nurse or other home services: No Alcohol intake: current Alcohol intake frequency: 3 or more drinks per day Alcohol type: hard liquor Patient Tobacco Use Status: Former Tobacco user Quit Date: 09/11/2022 Tobacco use type: Cigarette Cigarettes Per Day: 2 Substance Use Type: Crack/Cocaine service: No Current occupational status: employed Meds Allergies Allergy/AdvReac Type Severity Reaction Status Date / Time No Known Allergies Allergy Verified 05/31/23 01:00 Active Medications: Current Medications Lactulose (Lactulose 20 Gm/30 Ml Solution) 20 gm PO BID [facility] Last Admin: 05/31/23 11:31 Dose: 20 gm Multivitamins/Vitamin C (Multivitamin Tablet) 1 tab PO DAILY [facility] Last Admin: 05/31/23 11:31 Dose: 1 tab Omeprazole (Omeprazole 40 Mg Capsule.Dr) 40 mg PO DAILY@0630 [facility] Last Admin: 05/31/23 11:31 Dose: 40 mg Pharmacy Consult (Consult Rx Etoh Phenob Im/Po) 1 each MISCELLANE ONCE PRN; Protocol PRN Reason: Consult order Phenobarbital (Phenobarbital 30 Mg Tablet) 60 mg PO BID [facility] Stop: 06/02/23 09:01 Phenobarbital (Phenobarbital 30 Mg Tablet) 30 mg PO BID [facility] Stop: 06/04/23 09:01 Phenobarbital (Phenobarbital 30 Mg Tablet) 30 mg PO DAILY [facility] Stop: 06/06/23 09:01 Phenobarbital Sodium (Phenobarbital Sodium 130 Mg/Ml Vial Im Q3hx2) 280 mg IM Q3H [facility] Stop: 05/31/23 12:01 Last Admin: 05/31/23 10:20 Dose: 280 mg Thiamine HCl (Thiamine Hcl 100 Mg Tablet) 100 mg PO DAILY [facility] Last Admin: 05/31/23 11:31 Dose: 100 mg Home Medications Medication Instructions Recorded Confirmed Last Taken Type esomeprazole magnesium 20 mg 20 mg PO DAILY PRN Heartburn 05/31/23 05/31/23 Unknown History capsule,delayed release (Nexium) ibuprofen 600 mg tablet 600 mg PO TID 05/31/23 05/31/23 Unknown History Physical Exam Vital Signs: Vital Signs: Last Vital Signs Temp 98.0 F 05/31/23 10:10 Pulse 95 05/31/23 10:10 Resp 19 05/31/23 10:10 BP 106/61 05/31/23 10:10 Pulse Ox 96 05/31/23 09:26 O2 Del Method Room Air 05/31/23 09:26 BMI result Body Mass Index 30.7 Gen appear: Disheveled, pale appearing HEENT: icteric Abd: soft, distended, nontender Chest: normal insp effort Ext: R leg with nonpitting edema Neuro: Lethargic, Ox2, +++ asterixis Results Labs 05/31/23 10:59 05/31/23 01:33 Labs: Short CBC 05/31/23 05/31/23 Range/Units 01:33 10:59 WBC 9.2 7.9 (4.8-10.8) X10*3/uL Hgb 7.0 L* D 6.9 L* (14.0-18.0) g/dl Hct 19.6 L* D 19.4 L* (42.0-52.0) % Plt Count 127 L D 110 L (160-400) X10*3/uL BMP 05/31/23 01:33 Sodium 141 Potassium 3.5 Chloride 113 H Carbon Dioxide 18 L BUN 11 Creatinine 0.87 Calcium 6.7 L D Liver Function 05/31/23 Range/Units 01:33 Total Bilirubin 3.1 H (0.0-1.0) mg/dL AST 95 H (5-37) U/L ALT 42 H (0-40) U/L Alkaline Phosphatase 161 H (39-117) U/L Albumin 1.9 L (3.5-5.0) g/dL Assessment and Plan (1) Alcohol use disorder: Status: Acute (2) Anemia: Status: Acute (3) Cirrhosis: Status: Acute (4) Substance use: Status: Acute (5) Liver lesion: Status: Acute Plan #Liver cirrhosis 2/2 etOH use disorder - ascites - HE #Acute on chronic anemia #Abnormal liver imaging #Polysubstance use disorder Will need to eval for chronic hep given hx of polysubstance use disorder. In addition, will also need liver imaging to further work up the hypodensities noted in CT. Colon wall thickening reported in CT could potentially be resolving infectious colitis based on hx provided by the pt vs portal colopathy. Pt currently does not have diarrhea. In terms of his anemia, given underlying cirrhosis, will need evaluation for PHG, PUD, GAVE, AVMs. Variceal bleeding less likely in the absence of overt bleeding and subacute onset. Plan: - Maintain at least x2 IV access at all times - Transfuse for goal Hb at least 7mg/dl - Pls keep the pt NPO. - Start IV PPI BID and Octreotide drip - IV Ceftriaxone 1g once daily - Will plan for EGD tentatively tomorrow - For encephalopathy, pls increase lactulose to 30 ml TID for goal 2-3 BMs. - If no response to lactulose in 24h, will need Rifaximin 550 mg BID - Please also complete infectious work up including blood cultures, UA, diagnostic tap and CXR - Tox screen - Hepatitis serologies - Given question of hepatic lesions based on hypodensities reported on CT, pls get an US RUQ, recommend with doppler to check for portal and hepatic vein patency. - AFP ordered Thank you for allowing me to participate in his care. Please do not hesitate to reach out for questions or concerns. Procedures Date of Service Date of Service: 05/31/23
[2023-05-31] MEDS: cefTRIAXone sodium 1 GM in 0.9 % Sodium Chloride 50 ML IV (12:23)
[2023-05-31] MEDS: Octreotide Acetate 500 MCG in 0.9 % Sodium Chloride 500 ML 50.1 MCG IVCONT ×2 (12:44→23:13)
[2023-05-31 14:14] LABS: Amphetamine Screen Urine Not Detected (Not Detect); Barbiturates, Urine POSITIVE (Not Detect); Benzodiazepines Screen Urine Not Detected (Not Detect); Cannabinoid Screen Urine POSITIVE (Not Detect); Cocaine Screen Urine Not Detected (Not Detect); Fentanyl, urine Not Detected (Not Detect); Opiate Screen Urine Not Detected (Not Detect); Phencyclidine Screen Urine Not Detected (Not Detect)
[2023-05-31] MEDS: Pantoprazole Sodium 40 MG/10 ML VIAL IVPUSH (16:34)
[2023-05-31 17:21] LABS: Hemoglobin 7.3 g/dl (14.0-18.0)
[2023-05-31 17:27] LABS: Hematocrit 20.6 % (42.0-52.0)
[2023-05-31] MEDS: PHENobarbitaL 30 MG TABLET 60 MG PO (19:51)
[2023-05-31 20:09] LABS: Hematocrit 22.2 % (42.0-52.0); Hemoglobin 7.9 g/dl (14.0-18.0)
[2023-06-01] VITALS (13 sets, daily range): BP systolic 99–147; BP diastolic 55–78; PULSE 54–97; RESP 16–20; TEMP 36.4–37.3; O2SAT 96–99
[2023-06-01 03:35] LABS: HBS Num1 0.49 mIU/mL (0-7.99); HBc Num1 0.41 S/CO (0.00-0.79); HBsAGNum1 0.51 S/CO (0.00-0.99); Hepatitis B Core Antibody Nonreactive (Nonreactive); Hepatitis B Surface Antigen Negative (Negative); ~HepC Num1 1.25 S/CO (0.00-0.79); ~Hepatitis B Surface Antibody NONREACTIVE (Nonreactive); ~Hepatitis C Antibody Reactive (Nonreactive)
[2023-06-01 03:42] LABS: Hepatitis A Antibody IgM 0.29 Index (0-0.79); ~Hepatitis A Antibody IgM Nonreactive (Nonreactive)
[2023-06-01] MEDS: Pantoprazole Sodium 40 MG/10 ML VIAL IVPUSH ×2 (06:07→16:15)
--- NOTE | 2023-06-01 07:00 | CA_ITS ---
Transthoracic Echocardiogram Patient (Last, First, Middle): Jonathon Dan, Gender: Male Date of : 1965 Age: 57 Procedure Date: 06/01/2023 Procedure Type: Transthoracic Echocardiogram Location: [facility] [place] Height: 182.88 cm Weight: 102.51 kg BSA: 2.24 m2 Heart Rate: bpm BP: 106 / 55 mmHg Sports Reporter: Referring MD: Talib Tee MD Symptoms: R/o right and/or left heart failure Study Quality: Good ECG Rhythm: Sinus Conclusions: - Normal left ventricular size and systolic function. There is mildly increased left ventricular wall thickness. The visually estimated ejection fraction is between 60-65%. There is no evidence of regional wall motion abnormalities. Diastolic function is normal for age. - Normal right ventricular cavity size and systolic function. - The left atrium is mildly dilated. Findings Left Ventricle Normal left ventricular size and systolic function. There is mildly increased left ventricular wall thickness. The visually estimated ejection fraction is between 60-65%. There is no evidence of regional wall motion abnormalities. Diastolic function is normal for age. Right Ventricle Normal right ventricular cavity size and systolic function. Atria The left atrium is mildly dilated. Aortic Valve The aortic valve structure and function is likely normal. There is no aortic valve stenosis. There is no aortic valve regurgitation. Mitral Valve The mitral valve appears normal. There is trace mitral valve regurgitation. There is no mitral valve stenosis. Pulmonic Valve The pulmonic valve is likely normal. Tricuspid Valve Normal tricuspid valve structure. There is trace tricuspid valve regurgitation. Indeterminate right atrial pressure. There is no evidence of pulmonary hypertension. Great Vessels The visualized portions of the pulmonary artery and branches are normal. Venous The inferior vena cava was not well visualized. Pericardium/Pleural There is no evidence of pericardial effusion. Prior Study Comparison No prior study available for comparison. Measurements 2D Linear Measurements IVSd: 1.17 0.6-0.9/0.6-1.0 cm LVIDd: 5.28 3.9-5.3/4.2-5.9 cm LVIDd Index: 2.36 2.4-3.2/2.2-3.1 cm/m2 LVIDs: 3.55 2.0-3.6 cm LVPWd: 1.17 0.7-1.1 cm Ao Root: 4.10 2.1-3.5 cm LA Diam: 3.70 2.7-3.8/3.0-4.0 cm LAIDs Index: 1.65 1.5-2.3 cm/m2 LV Mass: 307.06 67-162/88-224 g LV Mass Index: 137.08 43-95/49-115 g/m2 LVOT Diam: 2.30 3.0+(-)1.3 cm 2D Systolic Function EF 4C: 53.70 >55% EF 2C: 68.70 >55% EF BiP: 61.60 >55% Mitral Valve MV Pk E: 0.93 MV PK A: 0.83 MV Decel Time: 223.00 E/A: 1.10 E'Lateral: 14.50 E'Medial: 6.31 E/E' Med: 14.70 E/E' Lat: 6.40 PHT: 65.00 MVA PHT: 3.38 Decel Pratt: 4.16 Aortic Valve AoV Pk Mayank: 1.29 AoV Mn Mayank: 0.78 AoV VTI: 0.26 AoV Pk Grad: 7.00 Aov Mn Grad: 3.00 JESSICA Cont.VTI: 4.75 LVOT LVOT Pk Mayank: 1.22 LVOT Mn Mayank: 0.81 LVOT VTI: 0.30 LVOT Pk Grad: 6.00 LVOT Mn Grad: 3.00 LVOT Diam: 2.30 LVOT Area: 4.15 Diastolic Function MV Pk E: 0.93 MV Pk A: 0.83 E/A: 1.10 E'Medial: 6.31 E/E' Med: 14.70 E' Laterial: 14.50 E/E' Lat: 6.40 Right Ventricle TAPSE (mm): 37.00 TVS' Mayank: 13.00 Tricuspid Valve TR Pk Mayank: 2.28 TR Pk Grad: 21.00 RA Press: 3.00 RVSP: 24.00 Great Vessels Aorta Ao Root-2D: 4.10 2.0-3.7 cm Pulmonary Valve PV Pk Mayank: 1.00 Peak PV Grad: 4.00 Updated in Other Vendor System with Status of Final Manny Rich MD electronically signed on 06/01/2023 1:14:51 PM with status of Final
[2023-06-01 07:53] LABS: INTERNATIONAL NORM RATIO 2.2 (0.9-1.1); Prothrombin Time 26.3 SEC (11.1-13.3)
[2023-06-01 07:54] LABS: Mean Corpuscular HGB Conc 35.6 g/dl (31.0-36.0); Mean Corpuscular Hemoglobin 30.5 pg (27.0-33.0); Mean Corpuscular Volume 85.5 fL (80.0-98.0); Mean Platelet Volume 12.9 fL (9.4-12.4); White Blood Count 6.1 X10*3/uL (4.8-10.8)
[2023-06-01] MEDS: PHENobarbitaL 30 MG TABLET 60 MG PO ×2 (07:56→19:50)
[2023-06-01] MEDS: Multivitamin TABLET 1 TAB PO (07:56)
[2023-06-01] MEDS: Thiamine HCL 100 MG TABLET PO (07:56)
[2023-06-01] MEDS: Octreotide Acetate 500 MCG in 0.9 % Sodium Chloride 500 ML 50.1 MCG IVCONT ×2 (07:58→16:15)
[2023-06-01] MEDS: Lactulose 20 GM/30 ML SOLUTION PO ×3 (07:58→19:49)
[2023-06-01 08:00] LABS: Alanine Aminotransferase 31 U/L (0-40); Albumin Level 1.5 g/dL (3.5-5.0); Alkaline Phosphatase 124 U/L (39-117); Anion Gap 8 (12-20); Aspartate Amino Transferase 74 U/L (5-37); Bilirubin Total 4.4 mg/dL (0.0-1.0); Blood Urea Nitrogen 10 mg/dL (9-16); Calcium 6.3 mg/dL (8.4-10.2); Carbon Dioxide 21 mmol/L (22-29); Chloride 114 mmol/L (96-108); Creatinine Clr Calc Pharmacy 124.5; Estimated Glomerular Filt Rate > 60; Potassium 3.6 mmol/L (3.3-5.1); Sodium 139 mmol/L (135-145); Total Protein 5.5 g/dL (6.5-8.0)
[2023-06-01 08:05] LABS: Glucose Random 55 mg/dL (60-115)
[2023-06-01 08:06] LABS: Hematocrit 18.8 % (42.0-52.0); Hemoglobin 6.7 g/dl (14.0-18.0); Platelet Count 78 X10*3/uL (160-400)
[2023-06-01 08:32] LABS: Glucose, Whole Blood 76 mg/dL (60-115)
--- NOTE | 2023-06-01 09:11 | HO.PM.IMPN ---
Subjective Subjective Date of Service: 06/01/23 Review of Systems Follow up cardiohepatic syndrome, encephalopathy more awake today no pain or discomfort Physical Exam Vital Signs: Vital Signs: Last Vital Signs Temp 97.8 F 06/01/23 07:01 Pulse 76 06/01/23 07:01 Resp 16 06/01/23 07:01 BP 106/55 L 06/01/23 07:01 Pulse Ox 96 06/01/23 07:01 O2 Del Method Room Air 06/01/23 07:01 BMI result Body Mass Index 30.7 Appearing in no acute distress lung sounds are clear to auscultation heart regular rate rhythm, clear S1, S2 positive bowel sounds, abdomen is soft, nontender neuro patient is alert x3, no focal deficits Objective Data Active Medications Ceftriaxone Sodium 1 gm/ (Sodium Chloride) 50 mls @ 100 mls/hr IV Q24H [facility] Last Infusion: 05/31/23 14:02 Dose: Infused Documented By: LI Octreotide Acetate 500 mcg/ (Sodium Chloride) 501 mls @ 50.1 mls/hr IVCONT .Q10H [facility] Last Admin: 06/01/23 07:58 Dose: 50 mcg/hr, 50.1 mls/hr Documented By: MARILYN Dextrose/Sodium Chloride (D5ns) 1,000 mls @ 80 mls/hr IVCONT .[id number] [facility] Sodium Chloride (Ns) 100 mls @ 100 mls/hr IV ONCE ONE Stop: 06/01/23 10:09 Sodium Chloride (Ns) 100 mls @ 100 mls/hr IV ONCE ONE Stop: 06/01/23 10:09 Lactulose (Lactulose 20 Gm/30 Ml Solution) 20 gm PO TID [facility] Last Admin: 06/01/23 07:58 Dose: 20 gm Documented By: MARILYN Multivitamins/Vitamin C (Multivitamin Tablet) 1 tab PO DAILY [facility] Last Admin: 06/01/23 07:56 Dose: 1 tab Documented By: MARILYN Pantoprazole Sodium (Pantoprazole Sodium 40 Mg/10 Ml Vial) 40 mg IVPUSH BID@0630,1630 [facility] Last Admin: 06/01/23 06:07 Dose: 40 mg Documented By: DONAVAN Pharmacy Consult (Consult Rx Etoh Phenob Im/Po) 1 each MISCELLANE ONCE PRN; Protocol PRN Reason: Consult order Phenobarbital (Phenobarbital 30 Mg Tablet) 60 mg PO BID [facility] Stop: 06/02/23 09:01 Last Admin: 06/01/23 07:56 Dose: 60 mg Documented By: MARILYN Phenobarbital (Phenobarbital 30 Mg Tablet) 30 mg PO BID [facility] Stop: 06/04/23 09:01 Phenobarbital (Phenobarbital 30 Mg Tablet) 30 mg PO DAILY [facility] Stop: 06/06/23 09:01 Thiamine HCl (Thiamine Hcl 100 Mg Tablet) 100 mg PO DAILY [facility] Last Admin: 06/01/23 07:56 Dose: 100 mg Documented By: MARILYN Labs 06/01/23 05:57 06/01/23 05:57 Labs: Laboratory Results - last 24 hr 05/31/23 05/31/23 05/31/23 01:33 10:58 10:59 MCV 86.6 MCH 30.8 MCHC 35.6 RDW 23.1 H Plt Count 110 L MPV 13.0 H Absolute Nucleated RBC 0.000 Nucleated RBC % (auto) 0.0 PT INR Anion Gap Estim Creat Clear Calc Estimated GFR POC Glucose Random Glucose Calcium Total Bilirubin AST ALT Alkaline Phosphatase Ammonia 116 H Total Protein Albumin Urine Opiates Screen Urine Fentanyl Screen Ur Barbiturates Screen Ur Phencyclidine Scrn Ur Amphetamines Screen U Benzodiazepines Scrn Urine Cocaine Screen U Marijuana (THC) Screen Hepatitis A IgM Ab Hep Bs Antigen Hep Bs Antibody Hep B Core Total Ab Hepatitis C Ab (EIA) Blood Type O Positive Antibody Screen NEGATIVE Crossmatch See Detail 05/31/23 05/31/23 06/01/23 12:08 13:50 05:57 MCV 85.5 MCH 30.5 MCHC 35.6 RDW 22.0 H Plt Count 78 L D MPV 12.9 H Absolute Nucleated RBC 0.000 Nucleated RBC % (auto) 0.0 PT 26.3 H INR 2.2 H Anion Gap 8 L Estim Creat Clear Calc 124.5 Estimated GFR > 60 POC Glucose Random Glucose 55 L* Calcium 6.3 L Total Bilirubin 4.4 H AST 74 H ALT 31 Alkaline Phosphatase 124 H Ammonia Total Protein 5.5 L Albumin 1.5 L Urine Opiates Screen Not Detected Urine Fentanyl Screen Not Detected Ur Barbiturates Screen POSITIVE H Ur Phencyclidine Scrn Not Detected Ur Amphetamines Screen Not Detected U Benzodiazepines Scrn Not Detected Urine Cocaine Screen Not Detected U Marijuana (THC) Screen POSITIVE H Hepatitis A IgM Ab Nonreactive Hep Bs Antigen Negative Hep Bs Antibody NONREACTIVE Hep B Core Total Ab Nonreactive Hepatitis C Ab (EIA) Reactive H Blood Type Antibody Screen Crossmatch 06/01/23 08:29 MCV MCH MCHC RDW Plt Count MPV Absolute Nucleated RBC Nucleated RBC % (auto) PT INR Anion Gap Estim Creat Clear Calc Estimated GFR POC Glucose 76 Random Glucose Calcium Total Bilirubin AST ALT Alkaline Phosphatase Ammonia Total Protein Albumin Urine Opiates Screen Urine Fentanyl Screen Ur Barbiturates Screen Ur Phencyclidine Scrn Ur Amphetamines Screen U Benzodiazepines Scrn Urine Cocaine Screen U Marijuana (THC) Screen Hepatitis A IgM Ab Hep Bs Antigen Hep Bs Antibody Hep B Core Total Ab Hepatitis C Ab (EIA) Blood Type Antibody Screen Crossmatch Assessment and Plan (1) Alcohol use disorder: Status: Acute (2) Liver failure: Status: Acute Plan 57 yo Man with history of alcohol abuse and dependence who presents with weakness. He is found to have acute on chronic anemia, +FOBT and CT evidence of coliitis. He also appears to have some hepatic encephalopathy. He will be admitted for further work up. Acute hepatic encephalopathy secondary to acute liver failure hepatic steatosis noted on abdominal CT without full liver cirrhosis Thrombocytopenia, hyperbilirubinemia, anemia, hypoglycemia. pt with +asterixis on exam and is disoriented initially Continue lactulose 20 mg t.i.d. Plan for paracentesis when stable Empiric Rocephin may need steroids but cant start unless bleeding status known Alcoholic liver failure and dependence, at high risk for withdrawal Continue phenobarbital protocol MVI/Thiamine Addiction medicine consultation pending Acute on chronic anemia, possible GI bleed Stool occult positive, no melena noted s/p 1 unit prbc in the ED This morning H&H low, 1 units packed red blood cells ordered Octreotide Plan for EGD as per Gastroenterology Discussed case with Dr. Navarro (hospitalist), Dr. Mena(gastroenterology) and Dr. Tee (anesthesia) Patient high risk for EGD but further risk for decompensation is also high if patient is actively bleeding. HH Q6H and transfuse as necessary Coagulopathy Likely secondary to liver disease hemolysis workup pending>LDH 373, INR 2.2 10 mg IV vitamin K in light of possible EGD and paracentesis Thrombocytopenia Secondary to liver disease JVD Echo showing normal EF 60-65% no rwma cardiology following give lasix after blood transfusion Pancolitis Diffuse thickening involving entire colon Patient denies any symptoms of diarrhea or abdominal pain Cdiff neg,Stool EPEC pos, no tx required GI consultation Abdominal cellulitis Diffuse cellulitis noted to the right mid and lower abdomen as well as bilateral buttocks ID consult pending Hypoglycemia 1 amp of D50 given started D5NS as patient is NPO for procedures Hypocalemia likely secondary to hypoalbumenia give albumin for paracentesis Full Code Attending Dr. Navarro DVT pptx, mechanical due to suspected GI bleed/anemia Patient with multiple active issues including encephalopathy/withdrawal/anemia which will require close monitoring/treatment and expert consultation. Therefore, his admission is expected to span 2 midnights and hence, he will be admitted as inpatient. Quality Stroke Does the patient have a stroke diagnosis?: No VTE Prior VTE?: No VTE Risk Level:: Medical - moderate - high VTE Device Contraindication: N/A - Device Ordered VTE Drug Contraindication: Treatment Not Indicated
[2023-06-01] MEDS: Dextrose 50 % 25 GM/50 ML SYRINGE IVPUSH (09:16)
[2023-06-01] MEDS: Dextrose 5 % and 0.9 % NaCl 1,000 ML 80 ML IVCONT (09:19)
[2023-06-01 09:37] LABS: Glucose, Whole Blood 103 mg/dL (60-115)
--- NOTE | 2023-06-01 09:39 | MHC.CM.PN ---
CM MET WITH PT AND SISTER/HCP AT BEDSIDE. PT LIVES IN [place] AND IS EMPLOYED F/T. +HCP PCP JORDYN DIGGS IN [place] ([phone]) DP: PT WILL STAY WITH SISTER LOCALLY ON RECOVERY. SISTER WILL TRANSPORT. CM WILL CONTINUE TO FOLLOW FOR ANY CHANGE IN DC PLAN/NEEDS.
[2023-06-01 10:17] LABS: Ammonia 87 umol/L (13-55)
[2023-06-01 10:25] LABS: Alanine Aminotransferase 36 U/L (0-40); Albumin Level 1.7 g/dL (3.5-5.0); Alkaline Phosphatase 142 U/L (39-117); Aspartate Amino Transferase 86 U/L (5-37); Bilirubin Total 4.9 mg/dL (0.0-1.0); Total Protein 6.3 g/dL (6.5-8.0)
[2023-06-01] MEDS: Phytonadione (Vit K1) 10 MG in 0.9 % Sodium Chloride 50 ML 51 MG IV (10:28)
--- NOTE | 2023-06-01 11:00 | PM.ANESCN ---
History of Present Illness <Talib Tee MD - Last Filed: 06/02/23 13:40> Consult details Consult date: 06/01/23 Requesting physician: Brenna Mena Narrative: We were asked to see Mr. Dan by Dr. Mena in preparation for EGD. The patient is a 57 yo M with long h/o alcoholism, still drinking, last drink according to his sister was yesterday prior to coming to the hospital (ETOH level in the ED was 91). The patieent also has a h/o supermorbid obesity, used to weigh 500 lbs, then had bariatric surgery and lost a lot of weight. Also h/o MAKENNA episode last August, with creat up to 3.3, recovered quickly, creat now back to baseline of 0.8 The patient's sister brought him to ED yest morning b/o ?weakness. The patient denied melena, black stools, or hematemesis. In fact, he vomited in the ED yest morning after drinking some chicken soup, and the vomitus had no blood or coffee grounds. And his stool has been light brown, altho guiac positive. The patient was mildly confused in the ED and was thought to have some hepatic encephalopathy W/U in the ED revealed Hgb 7 (baseline 8-9), plat count 127 (basline 200s), bicarb 18 (baseline 22), creat 0.8, tbili 3.1 (was 0.4), AST/ALT 95/42 (40/18), albumin 1.9 (2.9). NH3 was 116 (no baseline level). Abd CT showed normal size liver that was diffusely heterogeneous (had an abd CT in August,, and liver was reported to be normal in size and diffusely hypoattenuated). The spleen was normal. The was diffuse colitis, anasarca, and mild ascites. On abd US yesterday, there was moderate ascites, The hepatic arteries and hepatic veins were patent. The portal veins could not be visualized. The patient was admitted to Medicine, given two units RBC, and initiated on phenobarbital protocol, and given lactulose. F/U Hb last nite was 7.9. This morning, Hb was down to 6.7, INR is 2.2 (was 1.2 in August), glucose 55, tbili up to 4.4, alb down to 1.5, NH3 down to 87. On my exam he is jaundiced, pale, grossly oriented. He has marked bulging JVD at 20?. He has anasarca, cellulitis of his pannus, b/l LE swelling w R>L. A stool sample that he produced within about the last hour (that I saw bec it was saved for the nurse) was semi-solid and light brown in color. IMPRESSION: 1. Acute hepatic failure. Putting his current lab findings together with last year's labs suggests that the patient has acute hepatic failure. The low glucose and bicarb levels are particularly ominous and suggestive of the acute nature of the process. The elevated INR is additional evidence (altho not yet been proven to be noncorrectable). 2. His stool color and lack of hematemesis suggest that he is not acutely bleeding. The picture seems to look more like hematopoietic failure or hemolysis. 3. Marked JVD is suggestive of right and/or left heart failure. Could have right heart failure from portopulmonary HTN, could have left heart failure from chronic alcoholism. Also, his prior hx of supermorbid obesity could have left him with pulmonary HTN/cor pulmonale, another contributing factor to RHF. 4. Anemia. He's likely euvolemic now (given his creat). His JVD suggests that transfusions could be hazardous to either his left or right heart, or both, and could induce critical acute right and/or left heart failure. 5. Should r/o lower extrem DVT. As far as anesthesia goes, the main issues are: 1. Low Hb will promote hypotension/circulatory instability. 2. Anesthesia has long been known to be deleterious to the liver, and elective anesthesia would be considered contraindicated in patients with acute hepatic failure. 3. An argument could be made that this patient should be electively intubated for an EGD, as opposed to an LMA. That would make both of the above issues more relevant. 4. ? whether an attempt should be made to normalize the INR prior to the EGD. I would be comfortable leaving this decision up to Dr. Ceja, with the proviso that no elective invasive procedure with the potential for significant bleeding is undertaken. . PMFSH <Talib Tee MD - Last Filed: 06/02/23 13:40> Past Medical History Medical History Anemia Chronic kidney disease Alcohol dependence Surgical History Surgical History History of urologic surgery H/O varicose vein stripping S/P bariatric surgery Social History Social History Household Members: Children Household Members Other:: 2 Housing: Apartment Do you presently have visiting nurse or other home services: No Alcohol intake: current Alcohol intake frequency: 3 or more drinks per day Alcohol type: hard liquor Patient Tobacco Use Status: Former Tobacco user Quit Date: 2022 Tobacco use type: Cigarette Substance Use Type: Crack/Cocaine service: No Current occupational status: employed Meds <Talib Tee MD - Last Filed: 06/02/23 13:40> Allergies Allergy/AdvReac Type Severity Reaction Status Date / Time No Known Allergies Allergy Verified 06/01/23 16:54 Active Medications: Current Medications Ceftriaxone Sodium 1 gm/ (Sodium Chloride) 50 mls @ 100 mls/hr IV Q24H [facility] Last Infusion: 05/31/23 14:02 Dose: Infused Octreotide Acetate 500 mcg/ (Sodium Chloride) 501 mls @ 50.1 mls/hr IVCONT .Q10H [facility] Last Admin: 06/01/23 07:58 Dose: 50 mcg/hr, 50.1 mls/hr Dextrose/Sodium Chloride (D5ns) 1,000 mls @ 80 mls/hr IVCONT .[id number] [facility] Last Admin: 06/01/23 09:19 Dose: 80 mls/hr Albumin Human (Kedbumin 25 %) 100 mls @ 100 mls/hr IV Q1H [facility] Stop: 06/01/23 11:29 Lactulose (Lactulose 20 Gm/30 Ml Solution) 20 gm PO TID [facility] Last Admin: 06/01/23 07:58 Dose: 20 gm Multivitamins/Vitamin C (Multivitamin Tablet) 1 tab PO DAILY [facility] Last Admin: 06/01/23 07:56 Dose: 1 tab Pantoprazole Sodium (Pantoprazole Sodium 40 Mg/10 Ml Vial) 40 mg IVPUSH BID@0630,1630 [facility] Last Admin: 06/01/23 06:07 Dose: 40 mg Pharmacy Consult (Consult Rx Etoh Phenob Im/Po) 1 each MISCELLANE ONCE PRN; Protocol PRN Reason: Consult order Phenobarbital (Phenobarbital 30 Mg Tablet) 60 mg PO BID [facility] Stop: 06/02/23 09:01 Last Admin: 06/01/23 07:56 Dose: 60 mg Phenobarbital (Phenobarbital 30 Mg Tablet) 30 mg PO BID [facility] Stop: 06/04/23 09:01 Phenobarbital (Phenobarbital 30 Mg Tablet) 30 mg PO DAILY [facility] Stop: 06/06/23 09:01 Thiamine HCl (Thiamine Hcl 100 Mg Tablet) 100 mg PO DAILY [facility] Last Admin: 06/01/23 07:56 Dose: 100 mg Home Medications Medication Instructions Recorded Confirmed Last Taken Type esomeprazole magnesium 20 mg 20 mg PO DAILY PRN Heartburn 05/31/23 05/31/23 Unknown History capsule,delayed release (Nexium) ibuprofen 600 mg tablet 600 mg PO TID 05/31/23 05/31/23 Unknown History Physical Exam <Talib Tee MD - Last Filed: 06/02/23 13:40> Vital Signs: Vital Signs: Last Vital Signs Temp 97.8 F 06/01/23 07:01 Pulse 76 06/01/23 07:01 Resp 16 06/01/23 07:01 BP 106/55 L 06/01/23 07:01 Pulse Ox 96 06/01/23 07:01 O2 Del Method Room Air 06/01/23 07:01 BMI result Body Mass Index 30.7 Results <Talib Tee MD - Last Filed: 06/02/23 13:40> Labs 06/02/23 10:26 06/02/23 08:31 Labs: Abnormal lab results 05/31/23 05/31/23 05/31/23 Range/Units 01:33 10:58 10:59 RBC 2.24 L (4.60-5.80) X10*6/uL Hgb 6.9 L* (14.0-18.0) g/dl Hct 19.4 L* (42.0-52.0) % RDW 23.1 H (11.0-16.0) % Plt Count 110 L (160-400) X10*3/uL MPV 13.0 H (9.4-12.4) fL PT (11.1-13.3) SEC INR (0.9-1.1) Chloride (96-108) mmol/L Carbon Dioxide (22-29) mmol/L Anion Gap (12-20) Random Glucose (60-115) mg/dL Calcium (8.4-10.2) mg/dL Total Bilirubin (0.0-1.0) mg/dL Direct Bilirubin (0.0-0.5) mg/dL AST (5-37) U/L Alkaline Phosphatase (39-117) U/L Ammonia 116 H (13-55) umol/L Total Protein (6.5-8.0) g/dL Albumin (3.5-5.0) g/dL Ur Barbiturates Screen (Not Detect) U Marijuana (THC) Screen (Not Detect) Hepatitis C Ab (EIA) (Nonreactive) Crossmatch See Detail 05/31/23 05/31/23 05/31/23 Range/Units 12:08 13:50 16:48 RBC (4.60-5.80) X10*6/uL Hgb 7.3 L (14.0-18.0) g/dl Hct 20.6 L* (42.0-52.0) % RDW (11.0-16.0) % Plt Count (160-400) X10*3/uL MPV (9.4-12.4) fL PT (11.1-13.3) SEC INR (0.9-1.1) Chloride (96-108) mmol/L Carbon Dioxide (22-29) mmol/L Anion Gap (12-20) Random Glucose (60-115) mg/dL Calcium (8.4-10.2) mg/dL Total Bilirubin (0.0-1.0) mg/dL Direct Bilirubin (0.0-0.5) mg/dL AST (5-37) U/L Alkaline Phosphatase (39-117) U/L Ammonia (13-55) umol/L Total Protein (6.5-8.0) g/dL Albumin (3.5-5.0) g/dL Ur Barbiturates Screen POSITIVE H (Not Detect) U Marijuana (THC) Screen POSITIVE H (Not Detect) Hepatitis C Ab (EIA) Reactive H (Nonreactive) Crossmatch 0206/01/23 06/01/23 Range/Units 19:49 05:57 09:59 RBC 2.20 L (4.60-5.80) X10*6/uL Hgb 7.9 L 6.7 L* (14.0-18.0) g/dl Hct 22.2 L 18.8 L* (42.0-52.0) % RDW 22.0 H (11.0-16.0) % Plt Count 78 L D (160-400) X10*3/uL MPV 12.9 H (9.4-12.4) fL PT 26.3 H (11.1-13.3) SEC INR 2.2 H (0.9-1.1) Chloride 114 H (96-108) mmol/L Carbon Dioxide 21 L (22-29) mmol/L Anion Gap 8 L (12-20) Random Glucose 55 L* (60-115) mg/dL Calcium 6.3 L (8.4-10.2) mg/dL Total Bilirubin 4.4 H 4.9 H (0.0-1.0) mg/dL Direct Bilirubin 2.0 H (0.0-0.5) mg/dL AST 74 H 86 H (5-37) U/L Alkaline Phosphatase 124 H 142 H (39-117) U/L Ammonia 87 H (13-55) umol/L Total Protein 5.5 L 6.3 L (6.5-8.0) g/dL Albumin 1.5 L 1.7 L (3.5-5.0) g/dL Ur Barbiturates Screen (Not Detect) U Marijuana (THC) Screen (Not Detect) Hepatitis C Ab (EIA) (Nonreactive) Crossmatch Short CBC 05/31/23 05/31/23 05/31/23 Range/Units 10:59 16:48 19:49 WBC 7.9 (4.8-10.8) X10*3/uL Hgb 6.9 L* 7.3 L 7.9 L (14.0-18.0) g/dl Hct 19.4 L* 20.6 L* 22.2 L (42.0-52.0) % Plt Count 110 L (160-400) X10*3/uL 06/01/23 Range/Units 05:57 WBC 6.1 (4.8-10.8) X10*3/uL Hgb 6.7 L* (14.0-18.0) g/dl Hct 18.8 L* (42.0-52.0) % Plt Count 78 L D (160-400) X10*3/uL BMP 06/01/23 05:57 Sodium 139 Potassium 3.6 Chloride 114 H Carbon Dioxide 21 L BUN 10 Creatinine 0.83 Calcium 6.3 L Liver Function 06/01/23 06/01/23 Range/Units 05:57 09:59 Total Bilirubin 4.4 H 4.9 H (0.0-1.0) mg/dL Direct Bilirubin 2.0 H (0.0-0.5) mg/dL AST 74 H 86 H (5-37) U/L ALT 31 36 (0-40) U/L Alkaline Phosphatase 124 H 142 H (39-117) U/L Albumin 1.5 L 1.7 L (3.5-5.0) g/dL All other labs normal. Procedures <Talib Tee MD - Last Filed: 06/02/23 13:40> Date of Service Date of Service: 06/02/23 <Jaycee Abbasi MD - Last Filed: 06/01/23 15:56> Date of Service Date of Service: 06/01/23
[2023-06-01 12:38] LABS: CDiff Gene PCR NEGATIVE (Negative)
--- NOTE | 2023-06-01 13:07 | PM.CNCAR ---
History of Present Illness History of Present Illness Date of Service: 06/01/23 Requesting physician: Sophie Tejada Chief complaint: Anemia, preop assessment Narrative: Pleasant 57-year-old gentleman who is presenting for anemia on background of cirrhosis of liver due to alcoholism. He also has background history of cocaine use and quit using 3 months ago. He has significant anemia at this point and is getting blood transfusion. He also is on octreotide. Plan is for endoscopy tomorrow. He is denying any chest discomfort. He was seen by terminal makeup operator and he noticed JVD and we were asked to see him. He currently is denying any orthopnea or PND. He has abdominal distention due to ascites. Does have JVD on examination. He has mild peripheral edema. [facility] Past Medical History Medical History Anemia Chronic kidney disease Alcohol dependence Surgical History Surgical History S/P bariatric surgery Social History Social History Household Members: Children Household Members Other:: 2 Housing: Apartment Do you presently have visiting nurse or other home services: No Alcohol intake: current Alcohol intake frequency: 3 or more drinks per day Alcohol type: hard liquor Patient Tobacco Use Status: Former Tobacco user Quit Date: 09/11/2022 Tobacco use type: Cigarette Cigarettes Per Day: 2 Substance Use Type: Crack/Cocaine service: No Current occupational status: employed Meds Allergies Allergy/AdvReac Type Severity Reaction Status Date / Time No Known Allergies Allergy Verified 05/31/23 01:00 Active Medications: Current Medications Ceftriaxone Sodium 1 gm/ (Sodium Chloride) 50 mls @ 100 mls/hr IV Q24H [facility] Last Infusion: 05/31/23 14:02 Dose: Infused Octreotide Acetate 500 mcg/ (Sodium Chloride) 501 mls @ 50.1 mls/hr IVCONT .Q10H [facility] Last Admin: 06/01/23 07:58 Dose: 50 mcg/hr, 50.1 mls/hr Lactulose (Lactulose 20 Gm/30 Ml Solution) 20 gm PO TID [facility] Last Admin: 06/01/23 07:58 Dose: 20 gm Multivitamins/Vitamin C (Multivitamin Tablet) 1 tab PO DAILY [facility] Last Admin: 06/01/23 07:56 Dose: 1 tab Pantoprazole Sodium (Pantoprazole Sodium 40 Mg/10 Ml Vial) 40 mg IVPUSH BID@0630,1630 [facility] Last Admin: 06/01/23 06:07 Dose: 40 mg Pharmacy Consult (Consult Rx Etoh Phenob Im/Po) 1 each MISCELLANE ONCE PRN; Protocol PRN Reason: Consult order Phenobarbital (Phenobarbital 30 Mg Tablet) 60 mg PO BID [facility] Stop: 06/02/23 09:01 Last Admin: 06/01/23 07:56 Dose: 60 mg Phenobarbital (Phenobarbital 30 Mg Tablet) 30 mg PO BID [facility] Stop: 06/04/23 09:01 Phenobarbital (Phenobarbital 30 Mg Tablet) 30 mg PO DAILY [facility] Stop: 06/06/23 09:01 Thiamine HCl (Thiamine Hcl 100 Mg Tablet) 100 mg PO DAILY [facility] Last Admin: 06/01/23 07:56 Dose: 100 mg Home Medications Medication Instructions Recorded Confirmed Last Taken Type esomeprazole magnesium 20 mg 20 mg PO DAILY PRN Heartburn 05/31/23 05/31/23 Unknown History capsule,delayed release (Nexium) ibuprofen 600 mg tablet 600 mg PO TID 05/31/23 05/31/23 Unknown History Physical Exam Vital Signs: Vital Signs: Last Vital Signs Temp 97.7 F 06/01/23 11:50 Pulse 77 06/01/23 11:50 Resp 18 06/01/23 11:50 BP 113/70 06/01/23 11:50 Pulse Ox 96 06/01/23 11:16 O2 Del Method Room Air 06/01/23 11:16 BMI result Body Mass Index 30.7 GENERAL APPEARANCE: Pale appearing, temporal wasting. NECK: no carotid bruit, + jugular venous distention. SKIN: no suspicious lesions, warm and dry. HEART: no murmurs, regular rate and rhythm. LUNGS: clear to auscultation bilaterally. ABDOMEN: Nontender, distended due to ascites EXTREMITIES: Mild edema. PERIPHERAL PULSES: equal. NEUROLOGIC: No gross deficits, AAO X 3 Objective Labs and Meds 06/01/23 05:57 06/01/23 05:57 Lab results: Laboratory Results - last 24 hr 05/31/23 05/31/23 05/31/23 01:33 12:08 13:50 WBC RBC Hgb Hct MCV MCH MCHC RDW Plt Count MPV Absolute Nucleated RBC Nucleated RBC % (auto) PT INR Sodium Potassium Chloride Carbon Dioxide Anion Gap BUN Creatinine Estim Creat Clear Calc Estimated GFR POC Glucose Random Glucose Calcium Total Bilirubin Direct Bilirubin AST ALT Alkaline Phosphatase Ammonia Total Protein Albumin Urine Opiates Screen Not Detected Urine Fentanyl Screen Not Detected Ur Barbiturates Screen POSITIVE H Ur Phencyclidine Scrn Not Detected Ur Amphetamines Screen Not Detected U Benzodiazepines Scrn Not Detected Urine Cocaine Screen Not Detected U Marijuana (THC) Screen POSITIVE H C. difficile Tox B Gene Hepatitis A IgM Ab Nonreactive Hep Bs Antigen Negative Hep Bs Antibody NONREACTIVE Hep B Core Total Ab Nonreactive Hepatitis C Ab (EIA) Reactive H Hep C Viral Load Hep C Viral Load Log Hepatitis C Genotype Blood Type O Positive Antibody Screen NEGATIVE Crossmatch See Detail 05/31/23 05/31/23 06/01/23 16:48 19:49 05:57 WBC 6.1 RBC 2.20 L Hgb 7.3 L 7.9 L 6.7 L* Hct 20.6 L* 22.2 L 18.8 L* MCV 85.5 MCH 30.5 MCHC 35.6 RDW 22.0 H Plt Count 78 L D MPV 12.9 H Absolute Nucleated RBC 0.000 Nucleated RBC % (auto) 0.0 PT 26.3 H INR 2.2 H Sodium 139 Potassium 3.6 Chloride 114 H Carbon Dioxide 21 L Anion Gap 8 L BUN 10 Creatinine 0.83 Estim Creat Clear Calc 124.5 Estimated GFR > 60 POC Glucose Random Glucose 55 L* Calcium 6.3 L Total Bilirubin 4.4 H Direct Bilirubin AST 74 H ALT 31 Alkaline Phosphatase 124 H Ammonia Total Protein 5.5 L Albumin 1.5 L Urine Opiates Screen Urine Fentanyl Screen Ur Barbiturates Screen Ur Phencyclidine Scrn Ur Amphetamines Screen U Benzodiazepines Scrn Urine Cocaine Screen U Marijuana (THC) Screen C. difficile Tox B Gene Hepatitis A IgM Ab Hep Bs Antigen Hep Bs Antibody Hep B Core Total Ab Hepatitis C Ab (EIA) Hep C Viral Load Hep C Viral Load Log Hepatitis C Genotype Blood Type Antibody Screen Crossmatch 06/01/23 06/01/23 06/01/23 08:29 09:33 09:59 WBC RBC Hgb Hct MCV MCH MCHC RDW Plt Count MPV Absolute Nucleated RBC Nucleated RBC % (auto) PT INR Sodium Potassium Chloride Carbon Dioxide Anion Gap BUN Creatinine Estim Creat Clear Calc Estimated GFR POC Glucose 76 103 Random Glucose Calcium Total Bilirubin 4.9 H Direct Bilirubin 2.0 H AST 86 H ALT 36 Alkaline Phosphatase 142 H Ammonia 87 H Total Protein 6.3 L Albumin 1.7 L Urine Opiates Screen Urine Fentanyl Screen Ur Barbiturates Screen Ur Phencyclidine Scrn Ur Amphetamines Screen U Benzodiazepines Scrn Urine Cocaine Screen U Marijuana (THC) Screen C. difficile Tox B Gene Hepatitis A IgM Ab Hep Bs Antigen Hep Bs Antibody Hep B Core Total Ab Hepatitis C Ab (EIA) Hep C Viral Load Cancelled Hep C Viral Load Log Cancelled Hepatitis C Genotype Cancelled Blood Type Antibody Screen Crossmatch 06/01/23 11:17 WBC RBC Hgb Hct MCV MCH MCHC RDW Plt Count MPV Absolute Nucleated RBC Nucleated RBC % (auto) PT INR Sodium Potassium Chloride Carbon Dioxide Anion Gap BUN Creatinine Estim Creat Clear Calc Estimated GFR POC Glucose Random Glucose Calcium Total Bilirubin Direct Bilirubin AST ALT Alkaline Phosphatase Ammonia Total Protein Albumin Urine Opiates Screen Urine Fentanyl Screen Ur Barbiturates Screen Ur Phencyclidine Scrn Ur Amphetamines Screen U Benzodiazepines Scrn Urine Cocaine Screen U Marijuana (THC) Screen C. difficile Tox B Gene NEGATIVE Hepatitis A IgM Ab Hep Bs Antigen Hep Bs Antibody Hep B Core Total Ab Hepatitis C Ab (EIA) Hep C Viral Load Hep C Viral Load Log Hepatitis C Genotype Blood Type Antibody Screen Crossmatch Imaging Radiologist's impression: Impressions Doppler Study Ultrasound 05/31/23 13:15 IMPRESSION: Extremely limited exam due to bowel gas and ascites. The hepatic arteries and hepatic veins are patent. The portal veins could not be visualized. Chest X-Ray 06/01/23 06:25 IMPRESSION: Limited study, low lung volumes and likely vessel crowding. Right middle lobe pneumonia questioned. PA and lateral recommended when feasible. Assessment and Plan (1) Anemia: Status: Acute (2) Preop cardiovascular exam: Status: Acute Plan 57-year-old gentleman who is here for acute blood loss anemia on background of cirrhosis of liver due to alcoholism. Echocardiography is showing normal LV function. No significant valvular pathology on echocardiography. He does have mild JVD on examination and is being transfused. Recommend giving him 20 mg IV Lasix. Given cirrhosis of liver he will benefit from being on spironolactone which is a weak diuretic and will also keep his potassium levels stable and decrease the risk of hepatic encephalopathy. I do not think he needs to be on scheduled doses of diuretics currently. We will monitor him closely for symptoms. I think if he gets more blood transfusion then giving him 20 mg of Lasix with each unit of blood will be reasonable. He is intermediate risk for perioperative cardiovascular complications. Thank you for allowing me to participate in the care of your patient. Please feel free to contact me if you have any questions. Procedures Date of Service Date of Service: 06/01/23
[2023-06-01 14:03] LABS: Adenovirus F 40/41 Not Detected (Not Detect.); Astrovirus Not Detected (Not Detect.); Campylobacter Not Detected (Not Detect.); Cryptosporidium Not Detected (Not Detect.); Cyclospora cayetanensis Not Detected (Not Detect.); E. coli EAEC Not Detected (Not Detect.); E. coli EPEC Detected (Not Detect.); E. coli ETEC Not Detected (Not Detect.); E. coli STEC Not Detected (Not Detect.); Entamoeba histolytica Not Detected (Not Detect.); Giardia lamblia Not Detected (Not Detect.); Norovirus GI/GII Not Detected (Not Detect.); Plesiomonas shigelloides Not Detected (Not Detect.); Rotavirus A Not Detected (Not Detect.); Salmonella Not Detected (Not Detect.); Sapovirus Not Detected (Not Detect.); Shigella sp./EIEC Not Detected (Not Detect.); Vibrio Not Detected (Not Detect.); Vibrio Cholerae Not Detected (Not Detect.); Yersinia enterocolitica Not Detected (Not Detect.)
[2023-06-01] MEDS: cefTRIAXone sodium 1 GM in 0.9 % Sodium Chloride 50 ML IV (14:23)
[2023-06-01] MEDS: Furosemide 20 MG/2 ML VIAL IVPUSH (14:24)
[2023-06-01 15:12] LABS: Lactate Dehydrogenase 373 U/L (118-273)
--- NOTE | 2023-06-01 15:24 | PC.NURSE ---
Spoke with Sophie Tejada GETTER WELDER regarding plan. GETTER WELDER spoke with Clothing Cutter & GI MD regarding plan for EGD. Waiting on Anesthesiologist to clear pt for procedure. For now, hold 2nd unit of PRBC transfusion that was ordered for today. Give 20mg of Lasix IV total. Ok to administer Albumin as previously ordered. Sophie Askew. aware that stool studies showed + EPEC. Pt remains NPO X meds. Will continue to monitor closely.
[2023-06-01] MEDS: Albumin Human 25 % 100 ML IV ×2 (16:14→19:50)
[2023-06-01 16:26] LABS: Glucose, Whole Blood 104 mg/dL (60-115)
[2023-06-01 16:26] LABS: Glucose, Whole Blood 107 mg/dL (60-115)
[2023-06-01 16:36] LABS: Hemoglobin 8.2 g/dl (14.0-18.0); Imm Gran Abs Auto 0.03 X10*3/uL (0.00-0.03); Imm Gran Pct Auto 0.5 % (0.0-0.4); Neutrophils Percent Auto 65.4 % (45-73); Reticulocytes Absolute 0.072 X10*6/uL (0.026-0.095); SCAN SMEAR FLAG 1
[2023-06-01 16:38] LABS: Basophils Absolute Auto 0.1 X10*3/uL (0.0-0.2); Basophils Percent Auto 1.5 % (0-2); Eosinophils Absolute Auto 0.2 X10*3/uL (0.0-0.4); Eosinophils Percent Auto 2.7 % (0-4); Hematocrit 23.2 % (42.0-52.0); Immature Retic Fraction 14.8 % (2.3-13.4); Lymphocytes Absolute Auto 1.3 X10*3/uL (1.2-4.9); Lymphocytes Percent Auto 19.2 % (20-40); Mean Corpuscular HGB Conc 35.3 g/dl (31.0-36.0); Mean Corpuscular Hemoglobin 30.7 pg (27.0-33.0); Mean Corpuscular Volume 86.9 fL (80.0-98.0); Monocytes Absolute Auto 0.7 X10*3/uL (0.1-1.2); Monocytes Percent Auto 10.7 % (2-11); Neutrophils Absolute Auto 4.3 x10*3/uL (2.0-8.3); Red Blood Count 2.67 X10*6/uL (4.60-5.80); Red Cell Distribution Width 20.8 % (11.0-16.0); Retic HGB Equivalent 34.1 pg (30.0-35.0); Reticulocyte Percent 2.7 % (0.5-1.8); White Blood Count 6.6 X10*3/uL (4.8-10.8)
[2023-06-01 16:47] LABS: Platelet Count 79 X10*3/uL (160-400)
[2023-06-01 16:48] LABS: MANUAL DIFF FLAG NO; PLT ABN DIST 1
--- NOTE | 2023-06-01 16:49 | HO.ANESPROP2 ---
HPI - Anesthesia Eval Consult details Narrative: for EGD. PMFSH Active Problems Active Problems: All Active Problems (Updated 06/01/23 @ 16:40 by Sophie Tejada NP) Liver failure (Acute) Preop cardiovascular exam (Acute) Liver lesion (Acute) Substance use (Acute) Cirrhosis (Acute) Alcohol use disorder (Acute) Alcohol intoxication (Acute) Dizziness (Acute) Anemia (Acute) Penile erosion (Acute) Phimosis (Acute) Past Medical History Medical History Anemia Chronic kidney disease Alcohol dependence Family History Family history of problems with anesthesia: No Surgical History Surgical History S/P bariatric surgery History of Problems with Anesthesia: No Social History Social History Household Members: Children Household Members Other:: 2 Housing: Apartment Do you presently have visiting nurse or other home services: No Alcohol intake: current Alcohol intake frequency: 3 or more drinks per day Alcohol type: hard liquor Patient Tobacco Use Status: Former Tobacco user Quit Date: 09/11/2022 Tobacco use type: Cigarette Cigarettes Per Day: 2 Substance Use Type: Crack/Cocaine service: No Current occupational status: employed Meds Allergies Allergy/AdvReac Type Severity Reaction Status Date / Time No Known Allergies Allergy Verified 06/01/23 16:54 Active Medications: Current Medications Ceftriaxone Sodium 1 gm/ (Sodium Chloride) 50 mls @ 100 mls/hr IV Q24H [facility] Last Infusion: 06/01/23 14:53 Dose: Infused Octreotide Acetate 500 mcg/ (Sodium Chloride) 501 mls @ 50.1 mls/hr IVCONT .Q10H [facility] Last Admin: 06/01/23 16:15 Dose: 50 mcg/hr, 50.1 mls/hr Lactulose (Lactulose 20 Gm/30 Ml Solution) 20 gm PO TID [facility] Last Admin: 06/01/23 14:23 Dose: 20 gm Multivitamins/Vitamin C (Multivitamin Tablet) 1 tab PO DAILY [facility] Last Admin: 06/01/23 07:56 Dose: 1 tab Pantoprazole Sodium (Pantoprazole Sodium 40 Mg/10 Ml Vial) 40 mg IVPUSH BID@0630,1630 [facility] Last Admin: 06/01/23 16:15 Dose: 40 mg Pharmacy Consult (Consult Rx Etoh Phenob Im/Po) 1 each MISCELLANE ONCE PRN; Protocol PRN Reason: Consult order Phenobarbital (Phenobarbital 30 Mg Tablet) 60 mg PO BID [facility] Stop: 06/02/23 09:01 Last Admin: 06/01/23 07:56 Dose: 60 mg Phenobarbital (Phenobarbital 30 Mg Tablet) 30 mg PO BID [facility] Stop: 06/04/23 09:01 Phenobarbital (Phenobarbital 30 Mg Tablet) 30 mg PO DAILY [facility] Stop: 06/06/23 09:01 Thiamine HCl (Thiamine Hcl 100 Mg Tablet) 100 mg PO DAILY [facility] Last Admin: 06/01/23 07:56 Dose: 100 mg Home Medications Medication Instructions Recorded Confirmed Last Taken Type esomeprazole magnesium 20 mg 20 mg PO DAILY PRN Heartburn 05/31/23 05/31/23 Unknown History capsule,delayed release (Nexium) ibuprofen 600 mg tablet 600 mg PO TID 05/31/23 05/31/23 Unknown History Exam Height,Weight and Vital Signs: Height 6 ft Weight 102.6 kg Last Vital Signs Temp 98.1 F 06/01/23 15:35 Pulse 54 06/01/23 15:35 Resp 18 06/01/23 15:35 BP 118/69 06/01/23 15:35 Pulse Ox 97 06/01/23 15:35 O2 Del Method Room Air 06/01/23 15:35 Pertinent Lab Results Pertinent Lab Results: Laboratory Tests 05/31/23 05/31/23 05/31/23 01:33 04:52 10:58 WBC 9.2 RBC 2.17 L D Hgb 7.0 L* D Hct 19.6 L* D MCV 90.3 MCH 32.3 MCHC 35.7 RDW 19.5 H Plt Count 127 L D MPV 11.9 Immature Gran % (Auto) 0.3 Neut % (Auto) 72.6 Lymph % (Auto) 12.7 L [place] % (Auto) 11.7 H Eos % (Auto) 1.5 Baso % (Auto) 1.2 Lymph # (Auto) 1.2 [place] # (Auto) 1.1 Eos # (Auto) 0.1 Baso # (Auto) 0.1 Abs Immat Gran (auto) 0.03 Absolute Neuts (auto) 6.7 Absolute Nucleated RBC 0.000 Nucleated RBC % (auto) 0.0 Absolute Retic Percent Retic Immature Retic Fraction Retic Hgb Equivalent PT INR Sodium 141 Potassium 3.5 Chloride 113 H Carbon Dioxide 18 L Anion Gap 14 BUN 11 Creatinine 0.87 Estim Creat Clear Calc 118.8 Estimated GFR > 60 POC Glucose Random Glucose 129 H Calcium 6.7 L D Total Bilirubin 3.1 H Direct Bilirubin AST 95 H ALT 42 H Alkaline Phosphatase 161 H Ammonia 116 H Lactate Dehydrogenase Total Protein 6.9 Albumin 1.9 L Stool Occult Blood POSITIVE Stl C. cayetanensis PCR Stool Rotavirus A PCR Stl Adenov F 40/41 PCR Stool Astrovirus (PCR) Stool Campylobacter PCR Stool Cryptosporidium PCR Stl Sh Tox Pr E STEC PCR Stool E coli O157 PCR Stl Enterotoxigenic E PCR Stool EPEC (PCR) Stool EAEC (PCR) Stl E. histolytica PCR Stool Giardia Lamblia PCR Stl P. shigelloides PCR Stool Salmonella PCR Stool Sapovirus (PCR) Stl Shigella/EIEC PCR St Y.enterocolitica PCR Stool Vibrio (PCR) Stl Vibrio cholerae PCR Stl Norovirus GI/GII PCR Urine Opiates Screen Urine Fentanyl Screen Ur Barbiturates Screen Ur Phencyclidine Scrn Ur Amphetamines Screen U Benzodiazepines Scrn Urine Cocaine Screen U Marijuana (THC) Screen Ethyl Alcohol 91 C. difficile Tox B Gene Hepatitis A IgM Ab Hep Bs Antigen Hep Bs Antibody Hep B Core Total Ab Hepatitis C Ab (EIA) Hep C Viral Load Hep C Viral Load Log Hepatitis C Genotype Blood Type O Positive Antibody Screen NEGATIVE MARLY, Polyspecific NEGATIVE Positive MARLY Work-up TNP Crossmatch See Detail 05/31/23 05/31/23 05/31/23 10:59 12:08 13:50 WBC 7.9 RBC 2.24 L Hgb 6.9 L* Hct 19.4 L* MCV 86.6 MCH 30.8 MCHC 35.6 RDW 23.1 H Plt Count 110 L MPV 13.0 H Immature Gran % (Auto) Neut % (Auto) Lymph % (Auto) [place] % (Auto) Eos % (Auto) Baso % (Auto) Lymph # (Auto) [place] # (Auto) Eos # (Auto) Baso # (Auto) Abs Immat Gran (auto) Absolute Neuts (auto) Absolute Nucleated RBC 0.000 Nucleated RBC % (auto) 0.0 Absolute Retic Percent Retic Immature Retic Fraction Retic Hgb Equivalent PT INR Sodium Potassium Chloride Carbon Dioxide Anion Gap BUN Creatinine Estim Creat Clear Calc Estimated GFR POC Glucose Random Glucose Calcium Total Bilirubin Direct Bilirubin AST ALT Alkaline Phosphatase Ammonia Lactate Dehydrogenase Total Protein Albumin Stool Occult Blood Stl C. cayetanensis PCR Stool Rotavirus A PCR Stl Adenov F 40 PCR Stool Astrovirus (PCR) Stool Campylobacter PCR Stool Cryptosporidium PCR Stl Sh Tox Pr E STEC PCR Stool E coli O157 PCR Stl Enterotoxigenic E PCR Stool EPEC (PCR) Stool EAEC (PCR) Stl E. histolytica PCR Stool Giardia Lamblia PCR Stl P. shigelloides PCR Stool Salmonella PCR Stool Sapovirus (PCR) Stl Shigella/EIEC PCR St Y.enterocolitica PCR Stool Vibrio (PCR) Stl Vibrio cholerae PCR Stl Norovirus GI/GII PCR Urine Opiates Screen Not Detected Urine Fentanyl Screen Not Detected Ur Barbiturates Screen POSITIVE H Ur Phencyclidine Scrn Not Detected Ur Amphetamines Screen Not Detected U Benzodiazepines Scrn Not Detected Urine Cocaine Screen Not Detected U Marijuana (THC) Screen POSITIVE H Ethyl Alcohol C. difficile Tox B Gene Hepatitis A IgM Ab Nonreactive Hep Bs Antigen Negative Hep Bs Antibody NONREACTIVE Hep B Core Total Ab Nonreactive Hepatitis C Ab (EIA) Reactive H Hep C Viral Load Hep C Viral Load Log Hepatitis C Genotype Blood Type Antibody Screen MARLY, Polyspecific Positive MARLY Work-up Crossmatch 05/31/23 05/31/23 06/01/23 16:48 19:49 05:57 WBC 6.1 RBC 2.20 L Hgb 7.3 L 7.9 L 6.7 L* Hct 20.6 L* 22.2 L 18.8 L* MCV 85.5 MCH 30.5 MCHC 35.6 RDW 22.0 H Plt Count 78 L D MPV 12.9 H Immature Gran % (Auto) Neut % (Auto) Lymph % (Auto) [place] % (Auto) Eos % (Auto) Baso % (Auto) Lymph # (Auto) [place] # (Auto) Eos # (Auto) Baso # (Auto) Abs Immat Gran (auto) Absolute Neuts (auto) Absolute Nucleated RBC 0.000 Nucleated RBC % (auto) 0.0 Absolute Retic Percent Retic Immature Retic Fraction Retic Hgb Equivalent PT 26.3 H INR 2.2 H Sodium 139 Potassium 3.6 Chloride 114 H Carbon Dioxide 21 L Anion Gap 8 L BUN 10 Creatinine 0.83 Estim Creat Clear Calc 124.5 Estimated GFR > 60 POC Glucose Random Glucose 55 L* Calcium 6.3 L Total Bilirubin 4.4 H Direct Bilirubin AST 74 H ALT 31 Alkaline Phosphatase 124 H Ammonia Lactate Dehydrogenase Total Protein 5.5 L Albumin 1.5 L Stool Occult Blood Stl C. cayetanensis PCR Stool Rotavirus A PCR Stl Adenov F 40/41 PCR Stool Astrovirus (PCR) Stool Campylobacter PCR Stool Cryptosporidium PCR Stl Sh Tox Pr E STEC PCR Stool E coli O157 PCR Stl Enterotoxigenic E PCR Stool EPEC (PCR) Stool EAEC (PCR) Stl E. histolytica PCR Stool Giardia Lamblia PCR Stl P. shigelloides PCR Stool Salmonella PCR Stool Sapovirus (PCR) Stl Shigella/EIEC PCR St Y.enterocolitica PCR Stool Vibrio (PCR) Stl Vibrio cholerae PCR Stl Norovirus GI/GII PCR Urine Opiates Screen Urine Fentanyl Screen Ur Barbiturates Screen Ur Phencyclidine Scrn Ur Amphetamines Screen U Benzodiazepines Scrn Urine Cocaine Screen U Marijuana (THC) Screen Ethyl Alcohol C. difficile Tox B Gene Hepatitis A IgM Ab Hep Bs Antigen Hep Bs Antibody Hep B Core Total Ab Hepatitis C Ab (EIA) Hep C Viral Load Hep C Viral Load Log Hepatitis C Genotype Blood Type Antibody Screen MARLY, Polyspecific Positive MARLY Work-up Crossmatch 06/01/23 06/01/23 06/01/23 08:29 09:33 09:59 WBC RBC Hgb Hct MCV MCH MCHC RDW Plt Count MPV Immature Gran % (Auto) Neut % (Auto) Lymph % (Auto) [place] % (Auto) Eos % (Auto) Baso % (Auto) Lymph # (Auto) [place] # (Auto) Eos # (Auto) Baso # (Auto) Abs Immat Gran (auto) Absolute Neuts (auto) Absolute Nucleated RBC Nucleated RBC % (auto) Absolute Retic Percent Retic Immature Retic Fraction Retic Hgb Equivalent PT INR Sodium Potassium Chloride Carbon Dioxide Anion Gap BUN Creatinine Estim Creat Clear Calc Estimated GFR POC Glucose 76 103 Random Glucose Calcium Total Bilirubin 4.9 H Direct Bilirubin 2.0 H AST 86 H ALT 36 Alkaline Phosphatase 142 H Ammonia 87 H Lactate Dehydrogenase Total Protein 6.3 L Albumin 1.7 L Stool Occult Blood Stl C. cayetanensis PCR Stool Rotavirus A PCR Stl Adenov F 40 PCR Stool Astrovirus (PCR) Stool Campylobacter PCR Stool Cryptosporidium PCR Stl Sh Tox Pr E STEC PCR Stool E coli O157 PCR Stl Enterotoxigenic E PCR Stool EPEC (PCR) Stool EAEC (PCR) Stl E. histolytica PCR Stool Giardia Lamblia PCR Stl P. shigelloides PCR Stool Salmonella PCR Stool Sapovirus (PCR) Stl Shigella/EIEC PCR St Y.enterocolitica PCR Stool Vibrio (PCR) Stl Vibrio cholerae PCR Stl Norovirus GI/GII PCR Urine Opiates Screen Urine Fentanyl Screen Ur Barbiturates Screen Ur Phencyclidine Scrn Ur Amphetamines Screen U Benzodiazepines Scrn Urine Cocaine Screen U Marijuana (THC) Screen Ethyl Alcohol C. difficile Tox B Gene Hepatitis A IgM Ab Hep Bs Antigen Hep Bs Antibody Hep B Core Total Ab Hepatitis C Ab (EIA) Hep C Viral Load Cancelled Hep C Viral Load Log Cancelled Hepatitis C Genotype Cancelled Blood Type Antibody Screen MARLY, Polyspecific Positive MARLY Work-up Crossmatch 06/01/23 06/01/23 06/01/23 11:17 14:28 14:52 WBC RBC Hgb Hct MCV MCH MCHC RDW Plt Count MPV Immature Gran % (Auto) Neut % (Auto) Lymph % (Auto) [place] % (Auto) Eos % (Auto) Baso % (Auto) Lymph # (Auto) [place] # (Auto) Eos # (Auto) Baso # (Auto) Abs Immat Gran (auto) Absolute Neuts (auto) Absolute Nucleated RBC Nucleated RBC % (auto) Absolute Retic Percent Retic Immature Retic Fraction Retic Hgb Equivalent PT INR Sodium Potassium Chloride Carbon Dioxide Anion Gap BUN Creatinine Estim Creat Clear Calc Estimated GFR POC Glucose 104 Random Glucose Calcium Total Bilirubin Direct Bilirubin AST ALT Alkaline Phosphatase Ammonia Lactate Dehydrogenase 373 H Total Protein Albumin Stool Occult Blood Stl C. cayetanensis PCR Not Detected Stool Rotavirus A PCR Not Detected Stl Adenov F PCR Not Detected Stool Astrovirus (PCR) Not Detected Stool Campylobacter PCR Not Detected Stool Cryptosporidium PCR Not Detected Stl Sh Tox Pr E STEC PCR Not Detected Stool E coli O157 PCR Not applicable Stl Enterotoxigenic E PCR Not Detected Stool EPEC (PCR) Detected A Stool EAEC (PCR) Not Detected Stl E. histolytica PCR Not Detected Stool Giardia Lamblia PCR Not Detected Stl P. shigelloides PCR Not Detected Stool Salmonella PCR Not Detected Stool Sapovirus (PCR) Not Detected Stl Shigella/EIEC PCR Not Detected St Y.enterocolitica PCR Not Detected Stool Vibrio (PCR) Not Detected Stl Vibrio cholerae PCR Not Detected Stl Norovirus GI/GII PCR Not Detected Urine Opiates Screen Urine Fentanyl Screen Ur Barbiturates Screen Ur Phencyclidine Scrn Ur Amphetamines Screen U Benzodiazepines Scrn Urine Cocaine Screen U Marijuana (THC) Screen Ethyl Alcohol C. difficile Tox B Gene NEGATIVE Hepatitis A IgM Ab Hep Bs Antigen Hep Bs Antibody Hep B Core Total Ab Hepatitis C Ab (EIA) Hep C Viral Load Hep C Viral Load Log Hepatitis C Genotype Blood Type Antibody Screen MARLY, Polyspecific Positive MARLY Work-up Crossmatch 06/01/23 06/01/23 16:18 16:22 WBC RBC Hgb Hct MCV MCH MCHC RDW Plt Count MPV Immature Gran % (Auto) Neut % (Auto) Lymph % (Auto) [place] % (Auto) Eos % (Auto) Baso % (Auto) Lymph # (Auto) [place] # (Auto) Eos # (Auto) Baso # (Auto) Abs Immat Gran (auto) Absolute Neuts (auto) Absolute Nucleated RBC Nucleated RBC % (auto) Absolute Retic Cancelled Percent Retic Cancelled Immature Retic Fraction Cancelled Retic Hgb Equivalent Cancelled PT INR Sodium Potassium Chloride Carbon Dioxide Anion Gap BUN Creatinine Estim Creat Clear Calc Estimated GFR POC Glucose 107 Random Glucose Calcium Total Bilirubin Direct Bilirubin AST ALT Alkaline Phosphatase Ammonia Lactate Dehydrogenase Total Protein Albumin Stool Occult Blood Stl C. cayetanensis PCR Stool Rotavirus A PCR Stl Adenov F 40/41 PCR Stool Astrovirus (PCR) Stool Campylobacter PCR Stool Cryptosporidium PCR Stl Sh Tox Pr E STEC PCR Stool E coli O157 PCR Stl Enterotoxigenic E PCR Stool EPEC (PCR) Stool EAEC (PCR) Stl E. histolytica PCR Stool Giardia Lamblia PCR Stl P. shigelloides PCR Stool Salmonella PCR Stool Sapovirus (PCR) Stl Shigella/EIEC PCR St Y.enterocolitica PCR Stool Vibrio (PCR) Stl Vibrio cholerae PCR Stl Norovirus GI/GII PCR Urine Opiates Screen Urine Fentanyl Screen Ur Barbiturates Screen Ur Phencyclidine Scrn Ur Amphetamines Screen U Benzodiazepines Scrn Urine Cocaine Screen U Marijuana (THC) Screen Ethyl Alcohol C. difficile Tox B Gene Hepatitis A IgM Ab Hep Bs Antigen Hep Bs Antibody Hep B Core Total Ab Hepatitis C Ab (EIA) Hep C Viral Load Hep C Viral Load Log Hepatitis C Genotype Blood Type Antibody Screen MARLY, Polyspecific Positive MARLY Work-up Crossmatch Airway Mallampati Class: II TM Dist: <=3cm Neck ROM: Full Loose/Missing/Broken Teeth: Yes and Lower Heart: ok. see echo Lungs: ok. sat 96% on RA Assessment and Plan Assessment Anesthesia Assessment: Anesthesia Plan Discussed and Chart Reviewed (see my anesth consult note from earlier today.) Final Anesthetic Review Family History of Problems with Anesthesia: No History of Problems with Anesthesia: No NPO: Yes ASA Class: IV and Emergency Final Preanesthetic Review: No Changes in Pt Med Stat, Meds/Allgs Chart Reviewed, Consent Obtained/Reviewed and Anes Risks/Benef Reviewed Patient Risk: High (pt understands risk of critical hepatic deterioration) Procedure Risk: Intermediate Anesthetic Plan Anesthetic Plan: Agree w/ Assess. and Plan and TIVA Disposition: Standard PACU
--- NOTE | 2023-06-01 16:54 | MHC.SHP ---
Pre-Procedural Eval Section A - 24 Hr Update-Section A only Date of Service: 06/01/23 The patient is an INPATIENT: Yes The patient has been examined within 24 hours of the surgical procedure. The History & Physical has been completed within 30 days and I have reviewed it.: Yes Section B - Complete if H&P > 30 days Chief Complaint: Anemia, preop assessment Allergies: Allergies Allergy/AdvReac Type Severity Reaction Status Date / Time No Known Allergies Allergy Verified 06/01/23 16:54 Plan Diagnosis/Plan: Unchanged I have reviewed the history and physical and performed a pertinent physical examination on my patient. No changes have occurred unless specified. Time Spent With Patient Time: Total time managing care of this patient today ____ minutes.
--- NOTE | 2023-06-01 17:03 | PC.NURSE ---
Patient arrived to preop with two PRN angio's, #20 Right FA, # 20 Left FA. Both sites clean dry and intact, running medications with no issues. Anesthesia tubing hooked up to running Albumin per Dr. Tee.
--- NOTE | 2023-06-01 17:04 | P.OP_ITS ---
Operative Note Operative Note Date of Service: 06/01/23 Narrative: Procedure: Esophagogastroduodenoscopy Endoscopist: Brenna Mena MD Indication: GIB, cirrhosis Anesthesia Provider: Dr Talib Tee Anesthesia Type: MAC ?? EGD Procedure:?? The procedure, indications, preparation and potential complications were reviewed with the patient, who indicated understanding and gave written informed consent to proceed. A physical exam was performed. The endoscope was introduced through the mouth, and advanced to the second part of duodenum. The mucosa was carefully examined on slow withdrawal of the endoscope. The patient tolerated the procedure well. There were no immediate complications.? ? EGD Findings:? * Esophagus:? Ulceration and erythema in the esophagus from 29 to 39 cm. There was an 8 mm clean based ulcer at the GE junction at 39 cm. * Stomach:? Diffuse congestion and erythema in mosaic pattern consistent with portal hypertensive gastropathy was noted in the whole stomach. * Duodenum:? Evidence of enteroenteric anastomosis at 55 cm with a short blind limb. The efferent loop appeared normal to the extent examined. There was no ulceration around the anastomosis. ? EGD Impressions:? * Grade C esophagitis * GEJ ulcer with clean base * Portal hypertensive gastropathy * Enteroenteric anastomosis ?? Recommendations:?? * No varices noted on exam today * Unclear anatomy in small bowel ? hx of duodenal switch. Will need records. * Hematology eval for ? hemolysis * Cont PPI, can be switched to PO BID to be continued for 8 weeks total and then once daily. * Can discontinue octreotide * Cont ABx for total 7 days - can switch to Cipro which will also cover EPEC * Avoid NSAIDs. * Also needs a colonoscopy for complete evaluation, which can be done as outpatient Above has been reviewed with the patient.
[2023-06-01 17:27] LABS: Haptoglobin <10 MG/DL ((30-200))
[2023-06-01 18:44] LABS: Glucose, Whole Blood 107 mg/dL (60-115)
[2023-06-01 22:22] LABS: Hematocrit 24.1 % (42.0-52.0); Hemoglobin 8.4 g/dl (14.0-18.0)
--- NOTE | 2023-06-01 23:14 | W.PM.IDCN ---
History of Present Illness Data of Consult Service Date: 05/25/23 Requesting physician: Sophie Tejada Primary Care Provider: Penelope Elizondo NP HPI Reason for consult: abdominal wall cellulitis concern ,?SBP,hepatitis C He presents with swollen legs and fatigue from [facility]. He is to live in [place] now with family He has had chronic anemia and found to no DVT. He has dizziness and dark urine in Leiva catheter. He has not had known upper and/or lower endoscopy. Review of Systems Review of Systems: Yes all other systems are reviewed and are negative [facility] Past Medical History Medical History Anemia Chronic kidney disease Alcohol dependence Family History Family history: reviewed and not pertinent Surgical History Surgical History History of urologic surgery H/O varicose vein stripping S/P bariatric surgery Social History Social History Household Members: Children Household Members Other:: 2 Housing: Apartment Do you presently have visiting nurse or other home services: No Alcohol intake: current Alcohol intake frequency: 3 or more drinks per day Alcohol type: hard liquor Patient Tobacco Use Status: Former Tobacco user Quit Date: 2022 Tobacco use type: Cigarette Cigarettes Per Day: 2 Substance Use Type: Crack/Cocaine service: No Current occupational status: employed Meds Allergies Allergy/AdvReac Type Severity Reaction Status Date / Time No Known Allergies Allergy Verified 06/01/23 16:54 Active Medications: Current Medications Ceftriaxone Sodium 1 gm/ (Sodium Chloride) 50 mls @ 100 mls/hr IV Q24H [facility] Last Infusion: 06/01/23 14:53 Dose: Infused Octreotide Acetate 500 mcg/ (Sodium Chloride) 501 mls @ 50.1 mls/hr IVCONT .Q10H [facility] Last Admin: 06/01/23 16:15 Dose: 50 mcg/hr, 50.1 mls/hr Lactulose (Lactulose 20 Gm/30 Ml Solution) 20 gm PO TID [facility] Last Admin: 06/01/23 19:49 Dose: 20 gm Multivitamins/Vitamin C (Multivitamin Tablet) 1 tab PO DAILY [facility] Last Admin: 06/01/23 07:56 Dose: 1 tab Pantoprazole Sodium (Pantoprazole Sodium 40 Mg/10 Ml Vial) 40 mg IVPUSH BID@1033,1321 [facility] Last Admin: 06/01/23 16:15 Dose: 40 mg Pharmacy Consult (Consult Rx Etoh Phenob Im/Po) 1 each MISCELLANE ONCE PRN; Protocol PRN Reason: Consult order Phenobarbital (Phenobarbital 30 Mg Tablet) 60 mg PO BID [facility] Stop: 06/02/23 09:01 Last Admin: 06/01/23 19:50 Dose: 60 mg Phenobarbital (Phenobarbital 30 Mg Tablet) 30 mg PO BID [facility] Stop: 06/04/23 09:01 Phenobarbital (Phenobarbital 30 Mg Tablet) 30 mg PO DAILY [facility] Stop: 06/06/23 09:01 Thiamine HCl (Thiamine Hcl 100 Mg Tablet) 100 mg PO DAILY [facility] Last Admin: 06/01/23 07:56 Dose: 100 mg Home Medications Medication Instructions Recorded Confirmed Last Taken Type esomeprazole magnesium 20 mg 20 mg PO DAILY PRN Heartburn 05/31/23 05/31/23 Unknown History capsule,delayed release (Nexium) ibuprofen 600 mg tablet 600 mg PO TID 05/31/23 05/31/23 Unknown History Physical Exam Vital Signs: Vital Signs: Last Vital Signs Temp 98.2 F 06/01/23 20:00 Pulse 68 06/01/23 20:00 Resp 16 06/01/23 20:00 BP 117/65 06/01/23 20:00 Pulse Ox 98 06/01/23 20:00 O2 Del Method Room Air 06/01/23 18:02 BMI result Body Mass Index 30.7 Const: General: cooperative HEENT: Head: Yes normal to inspection Face and sinus: Yes normal facial exam Mouth: Normal oral and palatal mucosa present Teeth and gingiva: dentition normal Eyes: General: appearance normal, both eyes and all related structures (eyes icteric) Pupils: Equal, round and reactive pupils present Resp: Effort & Inspection: normal respiratory effort Cardio: Rate: regular rate Rhythm: regular rhythm GI: Other: mild abdominal distention some thickened skin RLQ ,no cellulitis at this time Palpation (GI): Soft to palpation and nontender : General: Yes no CVA tenderness Back/Spine/Pelvis: Back: no CVA tenderness Skin: General skin exam: no rashes or lesions noted Neuro: General: moves all extremities Cranial nerves: Yes Equal, round and reactive pupils present Extrem: General: Yes normal to inspection Psych: Appearance: grossly normal Results Labs 06/01/23 22:06 06/01/23 05:57 Labs: Short CBC 06/01/23 06/01/23 06/01/23 Range/Units 05:57 16:13 22:06 WBC 6.1 6.6 (4.8-10.8) X10*3/uL Hgb 6.7 L* 8.2 L D 8.4 L (14.0-18.0) g/dl Hct 18.8 L* 23.2 L D 24.1 L (42.0-52.0) % Plt Count 78 L D 79 L (160-400) X10*3/uL BMP 06/01/23 05:57 Sodium 139 Potassium 3.6 Chloride 114 H Carbon Dioxide 21 L BUN 10 Creatinine 0.83 Calcium 6.3 L Liver Function 06/01/23 06/01/23 Range/Units 05:57 09:59 Total Bilirubin 4.4 H 4.9 H (0.0-1.0) mg/dL Direct Bilirubin 2.0 H (0.0-0.5) mg/dL AST 74 H 86 H (5-37) U/L ALT 31 36 (0-40) U/L Alkaline Phosphatase 124 H 142 H (39-117) U/L Albumin 1.5 L 1.7 L (3.5-5.0) g/dL Microbiology Microbiology Results: Microbiology 05/31/23 16:48 Blood - Venous Blood Culture - Preliminary No growth after 24 hours. 05/31/23 16:48 Blood - Venous Blood Culture - Preliminary No growth after 24 hours. Assessment and Plan (1) Liver failure: Status: Acute He has minimal ascites,SBP possible He has possible esophageal varices There is no cellulitis abdomen at this time Hepatitis C status is unknown (2) Substance use: Status: Acute (3) Cirrhosis: Status: Acute (4) Alcohol use disorder: Status: Acute Plan Check Hepatitis C viral load. Check HIV test. Continue Ceftriaxone cover SBP pending GI workup,probably five days cephalosporin and can change to po when improved.
[2023-06-02 00:06] LABS: Glucose, Whole Blood 193 mg/dL (60-115)
[2023-06-02 03:52] VITALS: BP 121/68; PULSE 75; RESP 16; TEMP 37; O2SAT 100
[2023-06-02 04:17] LABS: Glucose, Whole Blood 199 mg/dL (60-115)
[2023-06-02 05:10] LABS: Appearance Urine Clear; Color Urine Dark Yellow; Glucose Urine UA Negative (Negative); Leukocyte Esterase Urine Trace (Negative); Nitrite Urine Negative (Negative); PH 5.5 (5.0-9.0); UMIC TRIGGER UACC YES; Urine Blood Negative (Negative); Urine Ketones Negative (Negative); Urine Protein Trace mg/dL (Neg-Trace)
[2023-06-02 05:34] LABS: Bacteria Urine None Seen (None Seen); Granular Casts Urine Present; RBC Urine 0-2 /HPF (0-2); UACC Culture Trigger YES
[2023-06-02] MEDS: Pantoprazole Sodium 40 MG/10 ML VIAL IVPUSH (05:59)
[2023-06-02] MEDS: Octreotide Acetate 500 MCG in 0.9 % Sodium Chloride 500 ML 50.1 MCG IVCONT (06:13)
[2023-06-02 07:23] VITALS: BP 103/63; PULSE 78; RESP 20; TEMP 36.4; O2SAT 94
[2023-06-02] MEDS: Thiamine HCL 100 MG TABLET PO (08:10)
[2023-06-02] MEDS: Multivitamin TABLET 1 TAB PO (08:10)
[2023-06-02] MEDS: PHENobarbitaL 30 MG TABLET 60 MG PO (08:10)
[2023-06-02] MEDS: Lactulose 20 GM/30 ML SOLUTION PO ×3 (08:10→21:24)
[2023-06-02 08:44] LABS: Ammonia 84 umol/L (13-55)
[2023-06-02 08:47] LABS: Basophils Absolute Auto 0.1 X10*3/uL (0.0-0.2); Basophils Percent Auto 1.1 % (0-2); SCAN SMEAR FLAG 1
[2023-06-02 08:49] LABS: Eosinophils Absolute Auto 0.3 X10*3/uL (0.0-0.4); Hematocrit 23.3 % (42.0-52.0); Hemoglobin 8.3 g/dl (14.0-18.0); Imm Gran Abs Auto 0.02 X10*3/uL (0.00-0.03); Imm Gran Pct Auto 0.3 % (0.0-0.4); Lymphocytes Absolute Auto 1.4 X10*3/uL (1.2-4.9); Lymphocytes Percent Auto 22.3 % (20-40); Mean Corpuscular HGB Conc 35.6 g/dl (31.0-36.0); Mean Corpuscular Hemoglobin 31.1 pg (27.0-33.0); Mean Corpuscular Volume 87.3 fL (80.0-98.0); Mean Platelet Volume 10.8 fL (9.4-12.4); Monocytes Absolute Auto 0.6 X10*3/uL (0.1-1.2); Monocytes Percent Auto 9.8 % (2-11); Neutrophils Absolute Auto 3.9 x10*3/uL (2.0-8.3); Neutrophils Percent Auto 62.5 % (45-73); Red Blood Count 2.67 X10*6/uL (4.60-5.80); Red Cell Distribution Width 21.1 % (11.0-16.0); White Blood Count 6.2 X10*3/uL (4.8-10.8)
[2023-06-02 08:50] LABS: MANUAL DIFF FLAG NO; PLT ABN DIST 1; Platelet Count 81 X10*3/uL (160-400)
[2023-06-02 08:52] LABS: INTERNATIONAL NORM RATIO 1.9 (0.9-1.1)
[2023-06-02 08:53] LABS: Alanine Aminotransferase 32 U/L (0-40); Alkaline Phosphatase 129 U/L (39-117); Anion Gap 8 (12-20); Aspartate Amino Transferase 70 U/L (5-37); Bilirubin Direct 1.6 mg/dL (0.0-0.5); Bilirubin Total 3.7 mg/dL (0.0-1.0); Blood Urea Nitrogen 9 mg/dL (9-16); Calcium 6.7 mg/dL (8.4-10.2); Carbon Dioxide 20 mmol/L (22-29); Chloride 110 mmol/L (96-108); Creatinine Clr Calc Pharmacy 103.4; Estimated Glomerular Filt Rate > 60; Glucose Random 135 mg/dL (60-115); Potassium 3.2 mmol/L (3.3-5.1); Sodium 135 mmol/L (135-145); Total Protein 6.2 g/dL (6.5-8.0)
--- NOTE | 2023-06-02 09:04 | P.CNHO_ITS ---
Subjective - Subjective Chief complaint: Weakness Patient: new to practice Consult date: 06/02/23 Primary Care Provider: Penelope Elizondo NP HPI - Consult Narrative Reason for consult: Hemolytic anemia Narrative: Jonathon Dan is a 57 year old male who has been admitted to the hospital with severe anemia, ascites and liver failure. His past medical history significant for alcohol abuse as well as drug abuse, he was brought in by his sister from [facility] in the [place]. Patient states that he was feeling weak and dizzy at work and therefore he went to hospital in [place] where he normally resides. 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 He says his 1st blood transfusion occurred in August and subsequently on this admission. He complaints of abdominal distention, redness of lower abdomen and bilateral leg swelling, right worse than left. He states he saw vascular surgeon in the past. He denies any recent fever or chills. He does drink alcohol daily but wants to quit now. He denies hematochezia or hematemesis. On evaluation in the ED, his hemoglobin was down to 6.9 gram/dL. CT abdomen/pelvis showed portal hypertension as well as patchy hypodensities in the liver. A previous scan showed a 1.4 cm lesion in the left lobe of liver. He has not had regular care anemia, he was not told of blood disorder in the past. Review of Systems - Constitutional Reports as per HPI, Reports fatigue, Reports lack of energy, Reports weakness - Cardiovascular Reports no additional cardiovascular complaints - Respiratory Reports no additional respiratory complaints [facility] Medical History: Medical History (Last Reviewed 06/01/23 @ 23:16 by Mitra Hinojosa MD) Alcohol dependence Anemia Chronic kidney disease Family history: reviewed and not pertinent Surgical History: Surgical History (Last Reviewed 06/01/23 @ 23:16 by Mitra Hinojosa MD) H/O varicose vein stripping History of urologic surgery S/P bariatric surgery Social History: Social History (Last Reviewed 06/01/23 @ 23:16 by Mitra Hinojosa MD) Living Situation History: Household Members: Children Household Members Other:: 2 Housing: Apartment Do you presently have visiting nurse or other home services: No Tobacco History: Patient Tobacco Use Status: Former Tobacco user Tobacco use type: Cigarette Cigarettes Per Day: 2 Smoke Quit Date: 2022 Substance Use History: Substance Use Type: Crack/Cocaine Occupation Assessmet: service: No Current occupational status: employed Home Medications and Allergies Current Medications: Current Medications Ceftriaxone Sodium 1 gm/ (Sodium Chloride) 50 mls @ 100 mls/hr IV Q24H [facility] Last Infusion: 06/01/23 14:53 Dose: Infused Octreotide Acetate 500 mcg/ (Sodium Chloride) 501 mls @ 50.1 mls/hr IVCONT .Q10H [facility] Last Admin: 06/02/23 06:13 Dose: 50 mcg/hr, 50.1 mls/hr Lactulose (Lactulose 20 Gm/30 Ml Solution) 20 gm PO TID [facility] Last Admin: 06/02/23 08:10 Dose: 20 gm Multivitamins/Vitamin C (Multivitamin Tablet) 1 tab PO DAILY [facility] Last Admin: 06/02/23 08:10 Dose: 1 tab Pantoprazole Sodium (Pantoprazole Sodium 40 Mg/10 Ml Vial) 40 mg IVPUSH BID@0630,1630 [facility] Last Admin: 06/02/23 05:59 Dose: 40 mg Pharmacy Consult (Consult Rx Etoh Phenob Im/Po) 1 each MISCELLANE ONCE PRN; Protocol PRN Reason: Consult order Phenobarbital (Phenobarbital 30 Mg Tablet) 30 mg PO BID [facility] Stop: 06/04/23 09:01 Phenobarbital (Phenobarbital 30 Mg Tablet) 30 mg PO DAILY [facility] Stop: 06/06/23 09:01 Thiamine HCl (Thiamine Hcl 100 Mg Tablet) 100 mg PO DAILY [facility] Last Admin: 06/02/23 08:10 Dose: 100 mg Home Medications Medication Instructions Recorded Confirmed Type esomeprazole magnesium 20 mg 20 mg PO DAILY PRN Heartburn 05/31/23 05/31/23 History capsule,delayed release (Nexium) ibuprofen 600 mg tablet 600 mg PO TID 05/31/23 05/31/23 History Allergies Allergy/AdvReac Type Severity Reaction Status Date / Time No Known Allergies Allergy Verified 06/01/23 16:54 Physical Exam Vital signs: Vital Signs Temp 97.6 F 06/02/23 07:23 Pulse 78 06/02/23 07:23 Resp 20 06/02/23 07:23 BP 103/63 06/02/23 07:23 Pulse Ox 94 06/02/23 07:23 O2 Del Method Room Air 06/02/23 07:23 Intake & Output 06/01/23 06/02/23 06/02/23 18:59 06:59 18:59 Intake Total 1733.703 / 3674.703 1941 / 3674.703 Output Total 1000 / 1000 Balance 1733.703 / 2674.703 941 / 2674.703 Urine Output (Average ml/kg/hr) 0.81 Intake: Intake, Oral Amount 1340 / 1340 Intake (Blood Product) Amount 350 / 350 Red Blood Cells (E0382) Unit 350 / 350 [id number] Intake, IV Amount 1383.703 / 1984.703 601 / 1984.703 0.9 % Sodium Chloride 100 ml @ 100 / 100 100 mls/hr IV ONCE ONE Rx#: [id number] Albumin Human 25 % 100 ml @ 100 100 / 200 100 / 200 mls/hr IV Q1H [facility] Rx#: [id number] Phytonadione (Vit K1) 10 mg In 51 / 51 0.9 % Sodium Chloride 50 ml @ 51 mls/hr IV ONCE ONE Rx#: [id number] cefTRIAXone sodium 1 gm In 0.9 50 / 50 % Sodium Chloride 50 ml @ 100 mls/hr IV Q24H [facility] Rx#: [id number] Dextrose 5 % and 0.9 % NaCl 1, 229.333 / 229.333 000 ml @ 80 mls/hr IVCONT . [id number] [facility] Rx#:[id number] Octreotide Acetate 500 mcg In 0 853.370 / 1354.370 501 / 1354.370 .9 % Sodium Chloride 500 ml @ 50 MCG/HR 50.1 mls/hr IVCONT . Q10H [facility] Rx#:[id number] Output: Output, Urine Amount 700 / 700 Output, Urine Amount (Catheter) 300 / 300 Condom 300 / 300 Other: IV Intake, Intraoperative 250 Amount NPO Yes Diabetic Snack % Eaten 100 Number of Bowel Movements 4 Last Bowel Movement 06/01/23 06/01/23 Stool Bedside Commode Stool Amount Large Stool Color Brown Stool Consistency Loose Weight 102.6 kg - Constitutional Present: chronically ill appearing - Routine HEENT Exam Head: Present: atraumatic Eye: Present: conjunctivae pale, scleral icterus - Routine Neck Exam Absent: lymphadenopathy - Routine Respiratory Exam Absent: accessory muscle use - Routine Cardiovascular Exam Cardiovascular: Present: S1, S2 - Routine Abdominal Exam Present: distended - Routine Extremities Exam Present: pedal edema - Routine Neurological Exam Present: alert, oriented X3 Hem/Onc Consult Result - Labs CBC & Chem 7: 06/02/23 08:28 06/02/23 08:31 Labs: Short CBC 06/01/23 06/01/23 06/02/23 Range/Units 16:13 22:06 08:28 WBC 6.6 6.2 (4.8-10.8) X10*3/uL Hgb 8.2 L D 8.4 L 8.3 L (14.0-18.0) g/dl Hct 23.2 L D 24.1 L 23.3 L (42.0-52.0) % Plt Count 79 L 81 L (160-400) X10*3/uL BMP 06/02/23 08:31 Sodium 135 Potassium 3.2 L Chloride 110 H Carbon Dioxide 20 L BUN 9 Creatinine 1.00 Calcium 6.7 L D Liver Function 06/01/23 06/02/23 Range/Units 09:59 08:31 Total Bilirubin 4.9 H 3.7 H (0.0-1.0) mg/dL Direct Bilirubin 2.0 H 1.6 H (0.0-0.5) mg/dL AST 86 H 70 H (5-37) U/L ALT 36 32 (0-40) U/L Alkaline Phosphatase 142 H 129 H (39-117) U/L Albumin 1.7 L 2.0 L (3.5-5.0) g/dL Urine 06/02/23 Range/Units 04:07 Urine Color Dark Yellow Urine Appearance Clear Urine pH 5.5 (5.0-9.0) Ur Specific [place] 1.020 (1.005-1.025) Urine Protein Trace (Neg-Trace) mg/dL Urine Glucose (UA) Negative (Negative) mg/dL Assessment and Plan Patient Active problem list reviewed?: Yes (1) Anemia Status: Acute Assessment and plan: 1. This is a 57-year-old male with polysubstance abuse, probable chronic liver disease, portal hypertension and ascites presenting with signs of hepatic encephalopathy as well as hemolytic anemia. He has Charanjit negative mild hemolysis, LDH is slightly elevated with indirect hyperbilirubinemia and haptoglobin <10. All of which can be seen with liver disease. Alcohol-related bone marrow suppression could also be contributing to the process. CT abdomen/pelvis with IV contrast shows diffuse mural thickening of colon and terminal ileum, cellulitis in the mid and lower abdomen and bilateral buttocks, perihepatic ascites and diffuse hepatic steatosis. He underwent EGD which showed grade C esophagitis, GE junction ulcer with clean base, portal hypertensive gastropathy and enteroenteric anastomosis. His kidney functions are stable, less likely to be myelophthisic process or acute infectious etiology. DIC related to liver disease is possible. His platelet counts are stable. Viral hepatitis can be associated with hemolysis. Ceftriaxone can cause hemolytic anemia. Megaloblastic anemias can cause hemolytic anemia. Additional blood work has been submitted. Keep fibrinogen level above 100 mg/dL to prevent bleeding. Continue ongoing supportive care. Transfuse blood to keep hemoglobin around 8 gram/dL. Overall prognosis is guarded. Thank you for the consultation. - Time Spent With Patient Time Spent with Patient (in minutes): 20
[2023-06-02 09:29] LABS: Fibrinogen 150 MG/DL (259-690)
[2023-06-02 09:32] LABS: Partial Thromboplastin Time 52.3 SEC (26.0-36.8)
--- NOTE | 2023-06-02 09:49 | PM.EVENT ---
Event Note Date of Service: 06/02/23 Event Note: Limited US of abdomen shows significant abdominal wall edema. There is trace perihepatic and pelvic ascites not amenable to a paracentesis. Christopher KIMBALL Interventional Radiology Time Spent With Patient Time: Total time managing care of this patient today ____ minutes.
[2023-06-02 10:35] LABS: Hematocrit 23.8 % (42.0-52.0); Hemoglobin 8.3 g/dl (14.0-18.0)
--- NOTE | 2023-06-02 10:45 | MHC.CM.PN ---
CM ATTEMPTED TO MEET W/PT AND PT'S SISTER AT BEDSIDE HOWEVER PT BEING ASSISTED IN THE BR, CM TO REVISIT.
[2023-06-02 11:33] LABS: Glucose, Whole Blood 158 mg/dL (60-115)
[2023-06-02 11:43] VITALS: BP 112/75; PULSE 72; RESP 20; TEMP 36; O2SAT 98
--- NOTE | 2023-06-02 11:51 | HO.POSTANES ---
Post Anesthesia Evaluation Post Anesthesia Evaluation Date of Service: 06/02/23 Vital Signs: Vital Signs Temp Pulse Resp BP Pulse Ox O2 Del Method 06/02/23 11:43 96.8 F 72 20 112/75 98 Room Air 06/02/23 07:23 97.6 F 78 20 103/63 94 Room Air 06/02/23 03:52 98.6 F 75 16 121/68 100 Room Air 06/01/23 23:59 97.5 F 68 16 128/77 99 Room Air Anesthesia: Monitored Mental Status: Awake Pain Control: Satisfactory Nausea/Vomiting: None Hydration: Adequate Anesthesia-Related Issues: No Anes. Related Issues
[2023-06-02] MEDS: cefTRIAXone sodium 1 GM in 0.9 % Sodium Chloride 50 ML IV (12:20)
--- NOTE | 2023-06-02 12:28 | HO.PM.IMPN ---
Subjective Subjective Date of Service: 06/02/23 Interval History: seen and examined this morning follow up for encephalopathy, liver disfunction awake and alert Review of Systems Review of Systems: Yes all other systems are reviewed and are negative Constitutional Constitutional: Denies chills and Denies fever(s) Cardiovascular Cardiovascular: Denies chest pain, Denies palpitations and Denies dyspnea Respiratory Respiratory: Denies cough and Denies dyspnea Gastrointestinal Gastrointestinal: Denies abdominal pain Endocrine Endocrine: Denies palpitations Physical Exam Vital Signs: Vital Signs: Last Vital Signs Temp 96.8 F 06/02/23 11:43 Pulse 72 06/02/23 11:43 Resp 20 06/02/23 11:43 BP 112/75 06/02/23 11:43 Pulse Ox 98 06/02/23 11:43 O2 Del Method Room Air 06/02/23 11:43 BMI result Body Mass Index 30.7 Const: General: cooperative, comfortable, alert and awake Nutritional Appearance: overweight Orientation/consciousness: patient oriented x3 Resp: Effort & Inspection: normal respiratory effort, able to speak in complete sentences, no respiratory distress and no use of accessory muscles Cardio: Rate: regular rate GI: Inspection: No distended Palpation (GI): Soft to palpation and nontender Neuro: Other: grossly nonfocal General: patient oriented x3 Objective Data Active Medications Ceftriaxone Sodium 1 gm/ (Sodium Chloride) 50 mls @ 100 mls/hr IV Q24H [facility] Last Admin: 06/02/23 12:20 Dose: 100 mls/hr Documented By: KATH Lactulose (Lactulose 20 Gm/30 Ml Solution) 20 gm PO TID [facility] Last Admin: 06/02/23 08:10 Dose: 20 gm Documented By: NEIL Multivitamins/Vitamin C (Multivitamin Tablet) 1 tab PO DAILY [facility] Last Admin: 06/02/23 08:10 Dose: 1 tab Documented By: NEIL Pantoprazole Sodium (Pantoprazole Sodium 40 Mg/10 Ml Vial) 40 mg IVPUSH BID@0630,1630 [facility] Last Admin: 06/02/23 05:59 Dose: 40 mg Documented By: ANTOIC Pharmacy Consult (Consult Rx Etoh Phenob Im/Po) 1 each MISCELLANE ONCE PRN; Protocol PRN Reason: Consult order Phenobarbital (Phenobarbital 30 Mg Tablet) 30 mg PO BID [facility] Stop: 06/04/23 09:01 Phenobarbital (Phenobarbital 30 Mg Tablet) 30 mg PO DAILY [facility] Stop: 06/06/23 09:01 Thiamine HCl (Thiamine Hcl 100 Mg Tablet) 100 mg PO DAILY [facility] Last Admin: 06/02/23 08:10 Dose: 100 mg Documented By: NEIL Labs 06/02/23 10:26 06/02/23 08:31 Labs: Laboratory Results - last 24 hr 05/31/23 06/01/23 06/01/23 01:33 11:17 14:28 MCV MCH MCHC RDW Plt Count MPV Immature Gran % (Auto) Neut % (Auto) Lymph % (Auto) [place] % (Auto) Eos % (Auto) Baso % (Auto) Lymph # (Auto) [place] # (Auto) Eos # (Auto) Baso # (Auto) Abs Immat Gran (auto) Absolute Neuts (auto) Absolute Nucleated RBC Nucleated RBC % (auto) Absolute Retic Percent Retic Immature Retic Fraction Retic Hgb Equivalent Haptoglobin PT INR APTT Fibrinogen Anion Gap Estim Creat Clear Calc Estimated GFR POC Glucose 104 Random Glucose Calcium Total Bilirubin Direct Bilirubin AST ALT Alkaline Phosphatase Ammonia Lactate Dehydrogenase Total Protein Albumin Urine Color Urine Appearance Urine pH Ur Specific [place] Urine Protein Urine Glucose (UA) Urine Ketones Urine Blood Urine Nitrite Ur Leukocyte Esterase Urine RBC Urine WBC Ur Squamous Epith Cells Urine Bacteria Hyaline Casts Granular Casts Stl C. cayetanensis PCR Not Detected Stool Rotavirus A PCR Not Detected Stl Adenov F 40/41 PCR Not Detected Stool Astrovirus (PCR) Not Detected Stool Campylobacter PCR Not Detected Stool Cryptosporidium PCR Not Detected Stl Sh Tox Pr E STEC PCR Not Detected Stool E coli O157 PCR Not applicable Stl Enterotoxigenic E PCR Not Detected Stool EPEC (PCR) Detected A Stool EAEC (PCR) Not Detected Stl E. histolytica PCR Not Detected Stool Giardia Lamblia PCR Not Detected Stl P. shigelloides PCR Not Detected Stool Salmonella PCR Not Detected Stool Sapovirus (PCR) Not Detected Stl Shigella/EIEC PCR Not Detected St Y.enterocolitica PCR Not Detected Stool Vibrio (PCR) Not Detected Stl Vibrio cholerae PCR Not Detected Stl Norovirus GI/GII PCR Not Detected C. difficile Tox B Gene NEGATIVE MARLY, Polyspecific NEGATIVE Positive MARLY Work-up TNP Crossmatch See Detail 06/01/23 06/01/23 06/01/23 14:52 16:13 16:18 MCV 86.9 MCH 30.7 MCHC 35.3 RDW 20.8 H Plt Count 79 L MPV Not Reportable Immature Gran % (Auto) 0.5 H Neut % (Auto) 65.4 Lymph % (Auto) 19.2 L [place] % (Auto) 10.7 Eos % (Auto) 2.7 Baso % (Auto) 1.5 Lymph # (Auto) 1.3 [place] # (Auto) 0.7 Eos # (Auto) 0.2 Baso # (Auto) 0.1 Abs Immat Gran (auto) 0.03 Absolute Neuts (auto) 4.3 Absolute Nucleated RBC 0.000 Nucleated RBC % (auto) 0.0 Absolute Retic 0.072 Percent Retic 2.7 H Immature Retic Fraction 14.8 H Retic Hgb Equivalent 34.1 Haptoglobin <10 L PT INR APTT Fibrinogen Anion Gap Estim Creat Clear Calc Estimated GFR POC Glucose 107 Random Glucose Calcium Total Bilirubin Direct Bilirubin AST ALT Alkaline Phosphatase Ammonia Lactate Dehydrogenase 373 H Total Protein Albumin Urine Color Urine Appearance Urine pH Ur Specific [place] Urine Protein Urine Glucose (UA) Urine Ketones Urine Blood Urine Nitrite Ur Leukocyte Esterase Urine RBC Urine WBC Ur Squamous Epith Cells Urine Bacteria Hyaline Casts Granular Casts Stl C. cayetanensis PCR Stool Rotavirus A PCR Stl Adenov F 40/ PCR Stool Astrovirus (PCR) Stool Campylobacter PCR Stool Cryptosporidium PCR Stl Sh Tox Pr E STEC PCR Stool E coli O157 PCR Stl Enterotoxigenic E PCR Stool EPEC (PCR) Stool EAEC (PCR) Stl E. histolytica PCR Stool Giardia Lamblia PCR Stl P. shigelloides PCR Stool Salmonella PCR Stool Sapovirus (PCR) Stl Shigella/EIEC PCR St Y.enterocolitica PCR Stool Vibrio (PCR) Stl Vibrio cholerae PCR Stl Norovirus GI/GII PCR C. difficile Tox B Gene MARLY, Polyspecific Positive MARLY Work-up Crossmatch 06/01/23 06/01/23 06/02/23 16:22 18:40 00:01 MCV MCH MCHC RDW Plt Count MPV Immature Gran % (Auto) Neut % (Auto) Lymph % (Auto) [place] % (Auto) Eos % (Auto) Baso % (Auto) Lymph # (Auto) [place] # (Auto) Eos # (Auto) Baso # (Auto) Abs Immat Gran (auto) Absolute Neuts (auto) Absolute Nucleated RBC Nucleated RBC % (auto) Absolute Retic Cancelled Percent Retic Cancelled Immature Retic Fraction Cancelled Retic Hgb Equivalent Cancelled Haptoglobin PT INR APTT Fibrinogen Anion Gap Estim Creat Clear Calc Estimated GFR POC Glucose 107 193 H Random Glucose Calcium Total Bilirubin Direct Bilirubin AST ALT Alkaline Phosphatase Ammonia Lactate Dehydrogenase Total Protein Albumin Urine Color Urine Appearance Urine pH Ur Specific [place] Urine Protein Urine Glucose (UA) Urine Ketones Urine Blood Urine Nitrite Ur Leukocyte Esterase Urine RBC Urine WBC Ur Squamous Epith Cells Urine Bacteria Hyaline Casts Granular Casts Stl C. cayetanensis PCR Stool Rotavirus A PCR Stl Adenov F 40/41 PCR Stool Astrovirus (PCR) Stool Campylobacter PCR Stool Cryptosporidium PCR Stl Sh Tox Pr E STEC PCR Stool E coli O157 PCR Stl Enterotoxigenic E PCR Stool EPEC (PCR) Stool EAEC (PCR) Stl E. histolytica PCR Stool Giardia Lamblia PCR Stl P. shigelloides PCR Stool Salmonella PCR Stool Sapovirus (PCR) Stl Shigella/EIEC PCR St Y.enterocolitica PCR Stool Vibrio (PCR) Stl Vibrio cholerae PCR Stl Norovirus GI/GII PCR C. difficile Tox B Gene MARLY, Polyspecific Positive MARLY Work-up Crossmatch 06/02/23 06/02/23 06/02/23 03:55 04:07 08:28 MCV 87.3 MCH 31.1 MCHC 35.6 RDW 21.1 H Plt Count 81 L MPV 10.8 Immature Gran % (Auto) 0.3 Neut % (Auto) 62.5 Lymph % (Auto) 22.3 [place] % (Auto) 9.8 Eos % (Auto) 4.0 Baso % (Auto) 1.1 Lymph # (Auto) 1.4 [place] # (Auto) 0.6 Eos # (Auto) 0.3 Baso # (Auto) 0.1 Abs Immat Gran (auto) 0.02 Absolute Neuts (auto) 3.9 Absolute Nucleated RBC 0.000 Nucleated RBC % (auto) 0.0 Absolute Retic Percent Retic Immature Retic Fraction Retic Hgb Equivalent Haptoglobin PT 23.0 H INR 1.9 H APTT 52.3 H Fibrinogen 150 L Anion Gap Estim Creat Clear Calc Estimated GFR POC Glucose 199 H Random Glucose Calcium Total Bilirubin Direct Bilirubin AST ALT Alkaline Phosphatase Ammonia 84 H Lactate Dehydrogenase Total Protein Albumin Urine Color Dark Yellow Urine Appearance Clear Urine pH 5.5 Ur Specific [place] 1.020 Urine Protein Trace Urine Glucose (UA) Negative Urine Ketones Negative Urine Blood Negative Urine Nitrite Negative Ur Leukocyte Esterase Trace H Urine RBC 0-2 Urine WBC 6-10 H Ur Squamous Epith Cells 3-5 Urine Bacteria None Seen Hyaline Casts 6-10 Granular Casts Present Stl C. cayetanensis PCR Stool Rotavirus A PCR Stl Adenov F PCR Stool Astrovirus (PCR) Stool Campylobacter PCR Stool Cryptosporidium PCR Stl Sh Tox Pr E STEC PCR Stool E coli O157 PCR Stl Enterotoxigenic E PCR Stool EPEC (PCR) Stool EAEC (PCR) Stl E. histolytica PCR Stool Giardia Lamblia PCR Stl P. shigelloides PCR Stool Salmonella PCR Stool Sapovirus (PCR) Stl Shigella/EIEC PCR St Y.enterocolitica PCR Stool Vibrio (PCR) Stl Vibrio cholerae PCR Stl Norovirus GI/GII PCR C. difficile Tox B Gene MARLY, Polyspecific Positive MARLY Work-up Crossmatch 06/02/23 06/02/23 08:31 11:28 MCV MCH MCHC RDW Plt Count MPV Immature Gran % (Auto) Neut % (Auto) Lymph % (Auto) [place] % (Auto) Eos % (Auto) Baso % (Auto) Lymph # (Auto) [place] # (Auto) Eos # (Auto) Baso # (Auto) Abs Immat Gran (auto) Absolute Neuts (auto) Absolute Nucleated RBC Nucleated RBC % (auto) Absolute Retic Percent Retic Immature Retic Fraction Retic Hgb Equivalent Haptoglobin PT INR APTT Fibrinogen Anion Gap 8 L Estim Creat Clear Calc 103.4 Estimated GFR > 60 POC Glucose 158 H Random Glucose 135 H Calcium 6.7 L D Total Bilirubin 3.7 H Direct Bilirubin 1.6 H AST 70 H ALT 32 Alkaline Phosphatase 129 H Ammonia Lactate Dehydrogenase Total Protein 6.2 L Albumin 2.0 L Urine Color Urine Appearance Urine pH Ur Specific [place] Urine Protein Urine Glucose (UA) Urine Ketones Urine Blood Urine Nitrite Ur Leukocyte Esterase Urine RBC Urine WBC Ur Squamous Epith Cells Urine Bacteria Hyaline Casts Granular Casts Stl C. cayetanensis PCR Stool Rotavirus A PCR Stl Adenov F PCR Stool Astrovirus (PCR) Stool Campylobacter PCR Stool Cryptosporidium PCR Stl Sh Tox Pr E STEC PCR Stool E coli O157 PCR Stl Enterotoxigenic E PCR Stool EPEC (PCR) Stool EAEC (PCR) Stl E. histolytica PCR Stool Giardia Lamblia PCR Stl P. shigelloides PCR Stool Salmonella PCR Stool Sapovirus (PCR) Stl Shigella/EIEC PCR St Y.enterocolitica PCR Stool Vibrio (PCR) Stl Vibrio cholerae PCR Stl Norovirus GI/GII PCR C. difficile Tox B Gene MARLY, Polyspecific Positive MARLY Work-up Crossmatch Microbiology Microbiology Results: Microbiology 05/31/23 16:48 Blood Culture - Preliminary Blood - Venous No growth after 24 hours. 05/31/23 16:48 Blood Culture - Preliminary Blood - Venous No growth after 24 hours. Assessment and Plan (1) Liver failure: Status: Acute (2) Cirrhosis: Status: Acute Plan This is a 57 yo male with history of alcohol abuse and dependence who presents with weakness found to have acute on chronic anemia, +FOBT and CT evidence of coliitis and hepatic encephalopathy admitted for further work up. Acute hepatic encephalopathy secondary to acute liver failure mental status improving with lactulose Continue lactulose 20 mg t.i.d. Acute on chronic anemia, possible GI bleed Stool occult positive, no melena noted s/p 1 unit prbc in the ED, 1U 06/01 s/p Octreotide drip seen by GI, s/p EGD 06/01 - esophagitis, GEJ ulcer, portal hypertensive gastropathy; no varices noted plan for PPI BID for 8 weeks then once daily avoid NSAIDs will need outpatient colonoscopy for complete evaluation seen by hematology - recommend to keep hemoglobin around 8 b12, folate pending Alcohol dependence, at high risk for withdrawal CIWA low Continue phenobarbital protocol MVI/Thiamine Addiction medicine consultation pending acute liver failure with Thrombocytopenia, hyperbilirubinemia, anemia, coagulopathy due to etoh cirrhosis Hep C viral load pending H/H and platelets stable. LFTs trending down US with trace perihepatic ascites not amenable to paracentesis continue empric ceftriaxone Coagulopathy Likely secondary to liver disease hemolysis workup pending>LDH 373, INR 2.2 10 mg IV vitamin K in light of possible EGD and paracentesis Thrombocytopenia Secondary to liver disease JVD Echo showing normal EF 60-65% no rwma cardiology following rec to give 20 IV lasix after blood transfusion Pancolitis Diffuse thickening involving entire colon Patient denies any symptoms of diarrhea or abdominal pain Cdiff neg,Stool EPEC pos per GI, continue IV ceftriaxone, can transition to po cipro on d/c for total 7 days treatment Abdominal cellulitis Diffuse cellulitis noted to the right mid and lower abdomen as well as bilateral buttocks US of abdomen with abdominal wall edema - likely due to third spacing/low albumin no significant cellulitis appreciated. seen by ID, no further workup recommended Right leg edema US negative for DVT Hypoglycemia resolved with D50 given started D5NS as patient is NPO for procedures Hypocalemia likely secondary to hypoalbumenia give albumin for paracentesis Full Code Attending Dr. Navarro DVT pptx, mechanical due to suspected GI bleed/anemia Patient with multiple active issues including encephalopathy/withdrawal/anemia which will require close monitoring/treatment and expert consultation requires ongoing inpatient stay Quality Stroke Does the patient have a stroke diagnosis?: No VTE Prior VTE?: No VTE Risk Level:: Medical - moderate - high VTE Device Contraindication: N/A - Device Ordered VTE Drug Contraindication: Treatment Not Indicated
[2023-06-02 13:03] LABS: Alpha Fetoprotein 3.6 ng/mL (<6.1); HCV RNA PCR Qn <1.18 NOT DETECTED Log IU/mL (NOT DETECTED); HCV RNA PCR Qn <15 NOT DETECTED IU/mL (NOT DETECTED)
[2023-06-02 14:32] LABS: Folate 5.6 ng/mL (> or = 4.0); Vitamin B12 > 2000 pg/mL (200-900)
[2023-06-02 15:31] VITALS: BP 97/67; PULSE 79; RESP 16; TEMP 36.3; O2SAT 98
[2023-06-02 16:16] LABS: Glucose, Whole Blood 148 mg/dL (60-115)
[2023-06-02] MEDS: Omeprazole 40 MG CAPSULE.DR PO (16:51)
[2023-06-02 19:33] VITALS: BP 103/60; PULSE 82; RESP 16; TEMP 36.9; O2SAT 98
[2023-06-02 19:48] LABS: Glucose, Whole Blood 114 mg/dL (60-115)
[2023-06-02] MEDS: PHENobarbitaL 30 MG TABLET PO (21:24)
[2023-06-02 21:37] LABS: Glucose, Whole Blood 133 mg/dL (60-115)
[2023-06-02 23:28] VITALS: BP 127/59; PULSE 79; RESP 18; TEMP 36.6; O2SAT 98
[2023-06-03] VITALS (8 sets, daily range): BP systolic 105–120; BP diastolic 55–66; PULSE 66–87; RESP 15–20; TEMP 35.9–37.2; O2SAT 96–100
[2023-06-03] MEDS: Omeprazole 40 MG CAPSULE.DR PO ×2 (05:35→16:53)
[2023-06-03 05:40] LABS: Glucose, Whole Blood 127 mg/dL (60-115)
[2023-06-03 06:33] LABS: MANUAL DIFF FLAG NO
[2023-06-03 06:40] LABS: Basophils Absolute Auto 0.1 X10*3/uL (0.0-0.2); Basophils Percent Auto 0.7 % (0-2); Eosinophils Absolute Auto 0.2 X10*3/uL (0.0-0.4); Eosinophils Percent Auto 2.7 % (0-4); Hemoglobin 7.2 g/dl (14.0-18.0); Imm Gran Abs Auto 0.03 X10*3/uL (0.00-0.03); Imm Gran Pct Auto 0.4 % (0.0-0.4); Lymphocytes Absolute Auto 1.3 X10*3/uL (1.2-4.9); Lymphocytes Percent Auto 19.2 % (20-40); Mean Corpuscular HGB Conc 35.6 g/dl (31.0-36.0); Mean Corpuscular Volume 87.1 fL (80.0-98.0); Mean Platelet Volume 10.3 fL (9.4-12.4); Monocytes Absolute Auto 0.6 X10*3/uL (0.1-1.2); Monocytes Percent Auto 9.1 % (2-11); Neutrophils Absolute Auto 4.5 x10*3/uL (2.0-8.3); Neutrophils Percent Auto 67.9 % (45-73); Red Blood Count 2.32 X10*6/uL (4.60-5.80); Red Cell Distribution Width 20.8 % (11.0-16.0); White Blood Count 6.7 X10*3/uL (4.8-10.8)
[2023-06-03 06:43] LABS: Platelet Count 74 X10*3/uL (160-400)
[2023-06-03 06:44] LABS: Hematocrit 20.2 % (42.0-52.0)
[2023-06-03 06:46] LABS: INTERNATIONAL NORM RATIO 2.2 (0.9-1.1); Prothrombin Time 26.2 SEC (11.1-13.3)
[2023-06-03 06:57] LABS: Alanine Aminotransferase 29 U/L (0-40); Albumin Level 1.7 g/dL (3.5-5.0); Alkaline Phosphatase 116 U/L (39-117); Anion Gap 7 (12-20); Aspartate Amino Transferase 62 U/L (5-37); Bilirubin Direct 1.1 mg/dL (0.0-0.5); Bilirubin Total 2.4 mg/dL (0.0-1.0); Blood Urea Nitrogen 8 mg/dL (9-16); Calcium 6.4 mg/dL (8.4-10.2); Carbon Dioxide 20 mmol/L (22-29); Chloride 109 mmol/L (96-108); Creatinine Clr Calc Pharmacy 98.4; Estimated Glomerular Filt Rate > 60; Glucose Random 129 mg/dL (60-115); Potassium 3.1 mmol/L (3.3-5.1); Sodium 133 mmol/L (135-145); Total Protein 5.5 g/dL (6.5-8.0)
[2023-06-03 07:30] LABS: Glucose, Whole Blood 132 mg/dL (60-115)
[2023-06-03 07:57] LABS: Fibrinogen 124 MG/DL (259-690)
[2023-06-03 08:00] LABS: Partial Thromboplastin Time 59.2 SEC (26.0-36.8)
[2023-06-03] MEDS: Multivitamin TABLET 1 TAB PO (08:45)
[2023-06-03] MEDS: Thiamine HCL 100 MG TABLET PO (08:45)
[2023-06-03] MEDS: Lactulose 20 GM/30 ML SOLUTION PO ×3 (08:45→20:23)
[2023-06-03] MEDS: PHENobarbitaL 30 MG TABLET PO ×2 (08:46→20:23)
--- NOTE | 2023-06-03 10:20 | P.PNADD_ITS ---
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 Patient seen in room 483. Awake, alert, pleasant. Sister present as well. Patient usually lives and works in [place] and most of his family is here in [place]. Many years of drinking daily--varying reports of amounts Patient very polite stating, I am just going to stop when asked about his goals with drinking and any support the may want. Sisiter requesting several resources. This marine underwriter showed sister how to access [employer] groups on her phone as this was something she wanted for her brother. Review of Systems Acute medical concerns: Yes Medical Review of Systems: unchanged Mental Status Exam Mental Status Exam Patient Appearance: Appropriate (jaundiced) Level of Consciousness: Awake and Appropriate Judgement: Fair (poor insight) Diagnostics Vital Signs (24Hr): Vital Signs - 24 hr 06/02/23 11:43 06/02/23 15:31 06/02/23 19:33 Temperature 96.8 F 97.3 F 98.5 F Pulse Rate 72 79 82 Respiratory Rate 20 16 16 Blood Pressure 112/75 97/67 103/60 Pulse Oximetry 98 98 98 Oxygen Delivery Method Room Air Room Air Room Air 06/02/23 23:28 06/03/23 04:00 06/03/23 07:19 Temperature 97.9 F 97.9 F 96.7 F L Pulse Rate 79 87 73 Respiratory Rate 18 20 18 Blood Pressure 127/59 L 109/55 L 108/60 Pulse Oximetry 98 96 99 Oxygen Delivery Method Room Air Room Air Room Air BMI result Body Mass Index 30.7 Labs 06/03/23 16:45 06/03/23 06:12 Labs: Laboratory Results - last 48 hr 05/31/23 06/01/23 06/01/23 01:33 09:59 11:17 WBC RBC Hgb Hct MCV MCH MCHC RDW Plt Count MPV Immature Gran % (Auto) Neut % (Auto) Lymph % (Auto) [place] % (Auto) Eos % (Auto) Baso % (Auto) Lymph # (Auto) Charles Mix # (Auto) Eos # (Auto) Baso # (Auto) Abs Immat Gran (auto) Absolute Neuts (auto) Absolute Nucleated RBC Nucleated RBC % (auto) Absolute Retic Percent Retic Immature Retic Fraction Retic Hgb Equivalent Haptoglobin PT INR APTT Fibrinogen Sodium Potassium Chloride Carbon Dioxide Anion Gap BUN Creatinine Estim Creat Clear Calc Estimated GFR POC Glucose Random Glucose Calcium Total Bilirubin 4.9 H Direct Bilirubin 2.0 H AST 86 H ALT 36 Alkaline Phosphatase 142 H Ammonia Lactate Dehydrogenase Total Protein 6.3 L Albumin 1.7 L Alpha Fetoprotein 3.6 Vitamin B12 Folate Urine Color Urine Appearance Urine pH Ur Specific [place] Urine Protein Urine Glucose (UA) Urine Ketones Urine Blood Urine Nitrite Ur Leukocyte Esterase Urine RBC Urine WBC Ur Squamous Epith Cells Urine Bacteria Hyaline Casts Granular Casts Stl C. cayetanensis PCR Not Detected Stool Rotavirus A PCR Not Detected Stl Adenov F 40/41 PCR Not Detected Stool Astrovirus (PCR) Not Detected Stool Campylobacter PCR Not Detected Stool Cryptosporidium PCR Not Detected Stl Sh Tox Pr E STEC PCR Not Detected Stool E coli O157 PCR Not applicable Stl Enterotoxigenic E PCR Not Detected Stool EPEC (PCR) Detected A Stool EAEC (PCR) Not Detected Stl E. histolytica PCR Not Detected Stool Giardia Lamblia PCR Not Detected Stl P. shigelloides PCR Not Detected Stool Salmonella PCR Not Detected Stool Sapovirus (PCR) Not Detected Stl Shigella/EIEC PCR Not Detected St Y.enterocolitica PCR Not Detected Stool Vibrio (PCR) Not Detected Stl Vibrio cholerae PCR Not Detected Stl Norovirus GI/GII PCR Not Detected C. difficile Tox B Gene NEGATIVE HCV RNA (PCR) IUs/ml <15 NOT DETECTED HCV RNA PCR log IUs/ml <1.18 NOT DETECTED Hepatitis C RNA Comment SEE NOTE Blood Type O Positive Antibody Screen NEGATIVE MARLY, Polyspecific NEGATIVE Positive MARLY Work-up TNP Crossmatch See Detail 06/01/23 06/01/23 06/01/23 14:28 14:52 16:13 WBC 6.6 RBC 2.67 L D Hgb 8.2 L D Hct 23.2 L D MCV 86.9 MCH 30.7 MCHC 35.3 RDW 20.8 H Plt Count 79 L MPV Not Reportable Immature Gran % (Auto) 0.5 H Neut % (Auto) 65.4 Lymph % (Auto) 19.2 L Charles Mix % (Auto) 10.7 Eos % (Auto) 2.7 Baso % (Auto) 1.5 Lymph # (Auto) 1.3 Charles Mix # (Auto) 0.7 Eos # (Auto) 0.2 Baso # (Auto) 0.1 Abs Immat Gran (auto) 0.03 Absolute Neuts (auto) 4.3 Absolute Nucleated RBC 0.000 Nucleated RBC % (auto) 0.0 Absolute Retic 0.072 Percent Retic 2.7 H Immature Retic Fraction 14.8 H Retic Hgb Equivalent 34.1 Haptoglobin <10 L PT INR APTT Fibrinogen Sodium Potassium Chloride Carbon Dioxide Anion Gap BUN Creatinine Estim Creat Clear Calc Estimated GFR POC Glucose 104 Random Glucose Calcium Total Bilirubin Direct Bilirubin AST ALT Alkaline Phosphatase Ammonia Lactate Dehydrogenase 373 H Total Protein Albumin Alpha Fetoprotein Vitamin B12 Folate Urine Color Urine Appearance Urine pH Ur Specific [place] Urine Protein Urine Glucose (UA) Urine Ketones Urine Blood Urine Nitrite Ur Leukocyte Esterase Urine RBC Urine WBC Ur Squamous Epith Cells Urine Bacteria Hyaline Casts Granular Casts Stl C. cayetanensis PCR Stool Rotavirus A PCR Stl Adenov F 40/ PCR Stool Astrovirus (PCR) Stool Campylobacter PCR Stool Cryptosporidium PCR Stl Sh Tox Pr E STEC PCR Stool E coli O157 PCR Stl Enterotoxigenic E PCR Stool EPEC (PCR) Stool EAEC (PCR) Stl E. histolytica PCR Stool Giardia Lamblia PCR Stl P. shigelloides PCR Stool Salmonella PCR Stool Sapovirus (PCR) Stl Shigella/EIEC PCR St Y.enterocolitica PCR Stool Vibrio (PCR) Stl Vibrio cholerae PCR Stl Norovirus GI/GII PCR C. difficile Tox B Gene HCV RNA (PCR) IUs/ml HCV RNA PCR log IUs/ml Hepatitis C RNA Comment Blood Type Antibody Screen MARLY, Polyspecific Positive MARLY Work-up Crossmatch 06/01/23 06/01/23 06/01/23 16:18 16:22 18:40 WBC RBC Hgb Hct MCV MCH MCHC RDW Plt Count MPV Immature Gran % (Auto) Neut % (Auto) Lymph % (Auto) Charles Mix % (Auto) Eos % (Auto) Baso % (Auto) Lymph # (Auto) Charles Mix # (Auto) Eos # (Auto) Baso # (Auto) Abs Immat Gran (auto) Absolute Neuts (auto) Absolute Nucleated RBC Nucleated RBC % (auto) Absolute Retic Cancelled Percent Retic Cancelled Immature Retic Fraction Cancelled Retic Hgb Equivalent Cancelled Haptoglobin PT INR APTT Fibrinogen Sodium Potassium Chloride Carbon Dioxide Anion Gap BUN Creatinine Estim Creat Clear Calc Estimated GFR POC Glucose 107 107 Random Glucose Calcium Total Bilirubin Direct Bilirubin AST ALT Alkaline Phosphatase Ammonia Lactate Dehydrogenase Total Protein Albumin Alpha Fetoprotein Vitamin B12 Folate Urine Color Urine Appearance Urine pH Ur Specific [place] Urine Protein Urine Glucose (UA) Urine Ketones Urine Blood Urine Nitrite Ur Leukocyte Esterase Urine RBC Urine WBC Ur Squamous Epith Cells Urine Bacteria Hyaline Casts Granular Casts Stl C. cayetanensis PCR Stool Rotavirus A PCR Stl Adenov F PCR Stool Astrovirus (PCR) Stool Campylobacter PCR Stool Cryptosporidium PCR Stl Sh Tox Pr E STEC PCR Stool E coli O157 PCR Stl Enterotoxigenic E PCR Stool EPEC (PCR) Stool EAEC (PCR) Stl E. histolytica PCR Stool Giardia Lamblia PCR Stl P. shigelloides PCR Stool Salmonella PCR Stool Sapovirus (PCR) Stl Shigella/EIEC PCR St Y.enterocolitica PCR Stool Vibrio (PCR) Stl Vibrio cholerae PCR Stl Norovirus GI/GII PCR C. difficile Tox B Gene HCV RNA (PCR) IUs/ml HCV RNA PCR log IUs/ml Hepatitis C RNA Comment Blood Type Antibody Screen MARLY, Polyspecific Positive MARLY Work-up Crossmatch 06/01/23 06/02/23 06/02/23 22:06 00:01 03:55 WBC RBC Hgb 8.4 L Hct 24.1 L MCV MCH MCHC RDW Plt Count MPV Immature Gran % (Auto) Neut % (Auto) Lymph % (Auto) Charles Mix % (Auto) Eos % (Auto) Baso % (Auto) Lymph # (Auto) Charles Mix # (Auto) Eos # (Auto) Baso # (Auto) Abs Immat Gran (auto) Absolute Neuts (auto) Absolute Nucleated RBC Nucleated RBC % (auto) Absolute Retic Percent Retic Immature Retic Fraction Retic Hgb Equivalent Haptoglobin PT INR APTT Fibrinogen Sodium Potassium Chloride Carbon Dioxide Anion Gap BUN Creatinine Estim Creat Clear Calc Estimated GFR POC Glucose 193 H 199 H Random Glucose Calcium Total Bilirubin Direct Bilirubin AST ALT Alkaline Phosphatase Ammonia Lactate Dehydrogenase Total Protein Albumin Alpha Fetoprotein Vitamin B12 Folate Urine Color Urine Appearance Urine pH Ur Specific [place] Urine Protein Urine Glucose (UA) Urine Ketones Urine Blood Urine Nitrite Ur Leukocyte Esterase Urine RBC Urine WBC Ur Squamous Epith Cells Urine Bacteria Hyaline Casts Granular Casts Stl C. cayetanensis PCR Stool Rotavirus A PCR Stl Adenov F PCR Stool Astrovirus (PCR) Stool Campylobacter PCR Stool Cryptosporidium PCR Stl Sh Tox Pr E STEC PCR Stool E coli O157 PCR Stl Enterotoxigenic E PCR Stool EPEC (PCR) Stool EAEC (PCR) Stl E. histolytica PCR Stool Giardia Lamblia PCR Stl P. shigelloides PCR Stool Salmonella PCR Stool Sapovirus (PCR) Stl Shigella/EIEC PCR St Y.enterocolitica PCR Stool Vibrio (PCR) Stl Vibrio cholerae PCR Stl Norovirus GI/GII PCR C. difficile Tox B Gene HCV RNA (PCR) IUs/ml HCV RNA PCR log IUs/ml Hepatitis C RNA Comment Blood Type Antibody Screen MARLY, Polyspecific Positive MARLY Work-up Crossmatch 06/02/23 06/02/23 06/02/23 04:07 08:28 08:28 WBC 6.2 RBC 2.67 L Hgb 8.3 L Cancelled Hct 23.3 L MCV MCH MCHC RDW Plt Count MPV Immature Gran % (Auto) Neut % (Auto) Lymph % (Auto) Charles Mix % (Auto) Eos % (Auto) Baso % (Auto) Lymph # (Auto) Charles Mix # (Auto) Eos # (Auto) Baso # (Auto) Abs Immat Gran (auto) Absolute Neuts (auto) Absolute Nucleated RBC Nucleated RBC % (auto) Absolute Retic Percent Retic Immature Retic Fraction Retic Hgb Equivalent Haptoglobin PT INR APTT Fibrinogen Sodium Potassium Chloride Carbon Dioxide Anion Gap BUN Creatinine Estim Creat Clear Calc Estimated GFR POC Glucose Random Glucose Calcium Total Bilirubin Direct Bilirubin AST ALT Alkaline Phosphatase Ammonia Lactate Dehydrogenase Total Protein Albumin Alpha Fetoprotein Vitamin B12 Folate Urine Color Dark Yellow Urine Appearance Clear Urine pH 5.5 Ur Specific [place] 1.020 Urine Protein Trace Urine Glucose (UA) Negative Urine Ketones Negative Urine Blood Negative Urine Nitrite Negative Ur Leukocyte Esterase Trace H Urine RBC 0-2 Urine WBC 6-10 H Ur Squamous Epith Cells 3-5 Urine Bacteria None Seen Hyaline Casts 6-10 Granular Casts Present Stl C. cayetanensis PCR Stool Rotavirus A PCR Stl Adenov F PCR Stool Astrovirus (PCR) Stool Campylobacter PCR Stool Cryptosporidium PCR Stl Sh Tox Pr E STEC PCR Stool E coli O157 PCR Stl Enterotoxigenic E PCR Stool EPEC (PCR) Stool EAEC (PCR) Stl E. histolytica PCR Stool Giardia Lamblia PCR Stl P. shigelloides PCR Stool Salmonella PCR Stool Sapovirus (PCR) Stl Shigella/EIEC PCR St Y.enterocolitica PCR Stool Vibrio (PCR) Stl Vibrio cholerae PCR Stl Norovirus GI/GII PCR C. difficile Tox B Gene HCV RNA (PCR) IUs/ml HCV RNA PCR log IUs/ml Hepatitis C RNA Comment Blood Type Antibody Screen MARLY, Polyspecific Positive MARLY Work-up Crossmatch 06/02/23 06/02/23 06/02/23 08:28 08:31 10:26 WBC RBC Hgb 8.3 L Hct Cancelled 23.8 L MCV 87.3 MCH 31.1 MCHC 35.6 RDW 21.1 H Plt Count 81 L MPV 10.8 Immature Gran % (Auto) 0.3 Neut % (Auto) 62.5 Lymph % (Auto) 22.3 Charles Mix % (Auto) 9.8 Eos % (Auto) 4.0 Baso % (Auto) 1.1 Lymph # (Auto) 1.4 Charles Mix # (Auto) 0.6 Eos # (Auto) 0.3 Baso # (Auto) 0.1 Abs Immat Gran (auto) 0.02 Absolute Neuts (auto) 3.9 Absolute Nucleated RBC 0.000 Nucleated RBC % (auto) 0.0 Absolute Retic Percent Retic Immature Retic Fraction Retic Hgb Equivalent Haptoglobin PT 23.0 H INR 1.9 H APTT 52.3 H Fibrinogen 150 L Sodium 135 Potassium 3.2 L Chloride 110 H Carbon Dioxide 20 L Anion Gap 8 L BUN 9 Creatinine 1.00 Estim Creat Clear Calc 103.4 Estimated GFR > 60 POC Glucose Random Glucose 135 H Calcium 6.7 L D Total Bilirubin 3.7 H Direct Bilirubin 1.6 H AST 70 H ALT 32 Alkaline Phosphatase 129 H Ammonia 84 H Lactate Dehydrogenase Total Protein 6.2 L Albumin 2.0 L Alpha Fetoprotein Vitamin B12 Folate Urine Color Urine Appearance Urine pH Ur Specific [place] Urine Protein Urine Glucose (UA) Urine Ketones Urine Blood Urine Nitrite Ur Leukocyte Esterase Urine RBC Urine WBC Ur Squamous Epith Cells Urine Bacteria Hyaline Casts Granular Casts Stl C. cayetanensis PCR Stool Rotavirus A PCR Stl Adenov F 40/41 PCR Stool Astrovirus (PCR) Stool Campylobacter PCR Stool Cryptosporidium PCR Stl Sh Tox Pr E STEC PCR Stool E coli O157 PCR Stl Enterotoxigenic E PCR Stool EPEC (PCR) Stool EAEC (PCR) Stl E. histolytica PCR Stool Giardia Lamblia PCR Stl P. shigelloides PCR Stool Salmonella PCR Stool Sapovirus (PCR) Stl Shigella/EIEC PCR St Y.enterocolitica PCR Stool Vibrio (PCR) Stl Vibrio cholerae PCR Stl Norovirus GI/GII PCR C. difficile Tox B Gene HCV RNA (PCR) IUs/ml HCV RNA PCR log IUs/ml Hepatitis C RNA Comment Blood Type Antibody Screen MARLY, Polyspecific Positive MARLY Work-up Crossmatch 06/02/23 06/02/23 06/02/23 11:28 13:33 16:11 WBC RBC Hgb Hct MCV MCH MCHC RDW Plt Count MPV Immature Gran % (Auto) Neut % (Auto) Lymph % (Auto) Charles Mix % (Auto) Eos % (Auto) Baso % (Auto) Lymph # (Auto) Charles Mix # (Auto) Eos # (Auto) Baso # (Auto) Abs Immat Gran (auto) Absolute Neuts (auto) Absolute Nucleated RBC Nucleated RBC % (auto) Absolute Retic Percent Retic Immature Retic Fraction Retic Hgb Equivalent Haptoglobin PT INR APTT Fibrinogen Sodium Potassium Chloride Carbon Dioxide Anion Gap BUN Creatinine Estim Creat Clear Calc Estimated GFR POC Glucose 158 H 148 H Random Glucose Calcium Total Bilirubin Direct Bilirubin AST ALT Alkaline Phosphatase Ammonia Lactate Dehydrogenase Total Protein Albumin Alpha Fetoprotein Vitamin B12 > 2000 H Folate 5.6 Urine Color Urine Appearance Urine pH Ur Specific [place] Urine Protein Urine Glucose (UA) Urine Ketones Urine Blood Urine Nitrite Ur Leukocyte Esterase Urine RBC Urine WBC Ur Squamous Epith Cells Urine Bacteria Hyaline Casts Granular Casts Stl C. cayetanensis PCR Stool Rotavirus A PCR Stl Adenov F 40/41 PCR Stool Astrovirus (PCR) Stool Campylobacter PCR Stool Cryptosporidium PCR Stl Sh Tox Pr E STEC PCR Stool E coli O157 PCR Stl Enterotoxigenic E PCR Stool EPEC (PCR) Stool EAEC (PCR) Stl E. histolytica PCR Stool Giardia Lamblia PCR Stl P. shigelloides PCR Stool Salmonella PCR Stool Sapovirus (PCR) Stl Shigella/EIEC PCR St Y.enterocolitica PCR Stool Vibrio (PCR) Stl Vibrio cholerae PCR Stl Norovirus GI/GII PCR C. difficile Tox B Gene HCV RNA (PCR) IUs/ml HCV RNA PCR log IUs/ml Hepatitis C RNA Comment Blood Type Antibody Screen MARLY, Polyspecific Positive MARLY Work-up Crossmatch 06/02/23 06/02/23 06/03/23 19:36 21:33 05:34 WBC RBC Hgb Hct MCV MCH MCHC RDW Plt Count MPV Immature Gran % (Auto) Neut % (Auto) Lymph % (Auto) Charles Mix % (Auto) Eos % (Auto) Baso % (Auto) Lymph # (Auto) Charles Mix # (Auto) Eos # (Auto) Baso # (Auto) Abs Immat Gran (auto) Absolute Neuts (auto) Absolute Nucleated RBC Nucleated RBC % (auto) Absolute Retic Percent Retic Immature Retic Fraction Retic Hgb Equivalent Haptoglobin PT INR APTT Fibrinogen Sodium Potassium Chloride Carbon Dioxide Anion Gap BUN Creatinine Estim Creat Clear Calc Estimated GFR POC Glucose 114 133 H 127 H Random Glucose Calcium Total Bilirubin Direct Bilirubin AST ALT Alkaline Phosphatase Ammonia Lactate Dehydrogenase Total Protein Albumin Alpha Fetoprotein Vitamin B12 Folate Urine Color Urine Appearance Urine pH Ur Specific [place] Urine Protein Urine Glucose (UA) Urine Ketones Urine Blood Urine Nitrite Ur Leukocyte Esterase Urine RBC Urine WBC Ur Squamous Epith Cells Urine Bacteria Hyaline Casts Granular Casts Stl C. cayetanensis PCR Stool Rotavirus A PCR Stl Adenov F 40/41 PCR Stool Astrovirus (PCR) Stool Campylobacter PCR Stool Cryptosporidium PCR Stl Sh Tox Pr E STEC PCR Stool E coli O157 PCR Stl Enterotoxigenic E PCR Stool EPEC (PCR) Stool EAEC (PCR) Stl E. histolytica PCR Stool Giardia Lamblia PCR Stl P. shigelloides PCR Stool Salmonella PCR Stool Sapovirus (PCR) Stl Shigella/EIEC PCR St Y.enterocolitica PCR Stool Vibrio (PCR) Stl Vibrio cholerae PCR Stl Norovirus GI/GII PCR C. difficile Tox B Gene HCV RNA (PCR) IUs/ml HCV RNA PCR log IUs/ml Hepatitis C RNA Comment Blood Type Antibody Screen MARLY, Polyspecific Positive MARLY Work-up Crossmatch 06/03/23 06/03/23 06/03/23 06:12 07:25 08:05 WBC 6.7 RBC 2.32 L Hgb 7.2 L Hct 20.2 L* MCV 87.1 MCH 31.0 MCHC 35.6 RDW 20.8 H Plt Count 74 L MPV 10.3 Immature Gran % (Auto) 0.4 Neut % (Auto) 67.9 Lymph % (Auto) 19.2 L Charles Mix % (Auto) 9.1 Eos % (Auto) 2.7 Baso % (Auto) 0.7 Lymph # (Auto) 1.3 Charles Mix # (Auto) 0.6 Eos # (Auto) 0.2 Baso # (Auto) 0.1 Abs Immat Gran (auto) 0.03 Absolute Neuts (auto) 4.5 Absolute Nucleated RBC 0.000 Nucleated RBC % (auto) 0.0 Absolute Retic Percent Retic Immature Retic Fraction Retic Hgb Equivalent Haptoglobin PT 26.2 H INR 2.2 H APTT 59.2 H Fibrinogen 124 L Sodium 133 L Potassium 3.1 L Chloride 109 H Carbon Dioxide 20 L Anion Gap 7 L BUN 8 L Creatinine 1.05 Estim Creat Clear Calc 98.4 Estimated GFR > 60 POC Glucose 132 H Random Glucose 129 H Calcium 6.4 L Total Bilirubin 2.4 H Direct Bilirubin 1.1 H AST 62 H ALT 29 Alkaline Phosphatase 116 Ammonia Lactate Dehydrogenase Total Protein 5.5 L Albumin 1.7 L Alpha Fetoprotein Vitamin B12 Folate Urine Color Urine Appearance Urine pH Ur Specific [place] Urine Protein Urine Glucose (UA) Urine Ketones Urine Blood Urine Nitrite Ur Leukocyte Esterase Urine RBC Urine WBC Ur Squamous Epith Cells Urine Bacteria Hyaline Casts Granular Casts Stl C. cayetanensis PCR Stool Rotavirus A PCR Stl Adenov F 40/41 PCR Stool Astrovirus (PCR) Stool Campylobacter PCR Stool Cryptosporidium PCR Stl Sh Tox Pr E STEC PCR Stool E coli O157 PCR Stl Enterotoxigenic E PCR Stool EPEC (PCR) Stool EAEC (PCR) Stl E. histolytica PCR Stool Giardia Lamblia PCR Stl P. shigelloides PCR Stool Salmonella PCR Stool Sapovirus (PCR) Stl Shigella/EIEC PCR St Y.enterocolitica PCR Stool Vibrio (PCR) Stl Vibrio cholerae PCR Stl Norovirus GI/GII PCR C. difficile Tox B Gene HCV RNA (PCR) IUs/ml HCV RNA PCR log IUs/ml Hepatitis C RNA Comment Blood Type O Positive Antibody Screen NEGATIVE MARLY, Polyspecific Positive MARLY Work-up Crossmatch See Detail Imaging Radiology Impressions: ITS Impressions Abdomen/Pelvis CT 05/31/23 06:05 IMPRESSION: 1. Diffuse mural thickening involving the entire colon and terminal ileum with pericolic haziness and mild free fluid. Findings consistent with diffuse colitis No free air seen. There are postsurgical changes involving a loop of small bowel in the right midabdomen. Fecal residue seen in small bowel likely secondary to stasis. No pneumatosis seen. 2. Diffuse cellulitis most prominent in the right mid and lower abdomen and bilateral buttocks. There is mesenteric edema as well. 3. Multiple midline anterior abdominal wall hernias containing fat. 4. Bilateral peripelvic cyst. Bilateral proximal ureters are opacified and normal. There is no hydroureteronephrosis. 5. Diffuse hepatic steatosis. Because of diffuse heterogeneity hepatic lesion cannot excluded. There is perihepatic ascites. Fleischner guidelines were followed. Doppler Study Ultrasound 05/31/23 13:15 IMPRESSION: Extremely limited exam due to bowel gas and ascites. The hepatic arteries and hepatic veins are patent. The portal veins could not be visualized. Chest X-Ray 06/01/23 06:25 IMPRESSION: Limited study, low lung volumes and likely vessel crowding. Right middle lobe pneumonia questioned. PA and lateral recommended when feasible. Venous Duplex 06/01/23 20:48 IMPRESSION: No DVT demonstrated in the right lower extremity. There is moderate edema seen throughout the right lower leg Prominent right groin lymph node, slightly heterogeneous, likely secondary to the right lower leg edema. Medications Medications Current Medications Ceftriaxone Sodium 1 gm/ (Sodium Chloride) 50 mls @ 100 mls/hr IV Q24H [facility] Last Infusion: 06/02/23 12:50 Dose: Infused Lactulose (Lactulose 20 Gm/30 Ml Solution) 20 gm PO TID [facility] Last Admin: 06/03/23 08:45 Dose: 20 gm Multivitamins/Vitamin C (Multivitamin Tablet) 1 tab PO DAILY [facility] Last Admin: 06/03/23 08:45 Dose: 1 tab Omeprazole (Omeprazole 40 Mg Capsule.) 40 mg PO BID@0630,1630 [facility] Last Admin: 06/03/23 05:35 Dose: 40 mg Pharmacy Consult (Consult Rx Etoh Phenob Im/Po) 1 each MISCELLANE ONCE PRN; Protocol PRN Reason: Consult order Phenobarbital (Phenobarbital 30 Mg Tablet) 30 mg PO BID [facility] Stop: 06/04/23 09:01 Last Admin: 06/03/23 08:46 Dose: 30 mg Phenobarbital (Phenobarbital 30 Mg Tablet) 30 mg PO DAILY [facility] Stop: 06/06/23 09:01 Thiamine HCl (Thiamine Hcl 100 Mg Tablet) 100 mg PO DAILY [facility] Last Admin: 06/03/23 08:45 Dose: 100 mg Allergies Allergies Allergy/AdvReac Type Severity Reaction Status Date / Time No Known Allergies Allergy Verified 06/01/23 16:54 Assessment & Plan Assessment & Plan (1) Alcohol use disorder: Status: Acute Code(s): F10.90 - Alcohol use, unspecified, uncomplicated Assessment and Plan: * resources provided to patient and sister as requested * please reconsult if needed Total time managing care of this patient today ___35_ minutes.
--- NOTE | 2023-06-03 11:15 | MHC.CM.PN ---
EMR REVIEWED, PT W/ENCEPHALOPATHY D/T ACUTE LIVER FAILURE/ACUTE ANEMIA AND ETOH DEP, PER HOSPITALIST PLAN FOR BLOOD TRANSFUSION D/T HCT 20.2, LFT'S TRENDING DOWN, ANTIC PT WILL REMAIN INPT THROUGH W/E, CM WILL CONT TO FOLLOW DC NEEDS. OF NOTE PT LIVES IN THE [place], [place] AND HAS COMMERCIAL INS PLAN THOUGH WORK AND PCP IN [place], PT WILL NOT LIKELY BE ABLE TO HAVE SERVICES D/T OUT OF STATE INS/PCP.
[2023-06-03] MEDS: Potassium Chloride Packet 20 MEQ PACKET 40 MEQ PO (11:19)
--- NOTE | 2023-06-03 13:25 | MHC.CM.PN ---
LATE ENTRY NOTE FOR 06/02/23, CM MET W/SISTER AND PT AT BEDSIDE, PT'S SISTER REQUESTING FMLA SHORT TERM DISABILITY PAPERWORK FROM [employer], PT HAD RECEIVED EMAIL W/DOCUMENTS ATTACHED AND FORWARDED EMAIL TO CM, EMAIL/POLICY AND FORMS (3 COPIES) PRINTED OUT AND GIVEN TO PT/SISTER.
--- NOTE | 2023-06-03 13:47 | MHC.CM.PN ---
CM MET W/PT AND SISTER AND PT REPORTING HE NEEDS A LETTER EMAILED TO HIS WORK, CM [employer] H [employer] COMPLETING LETTER AND THIS CM TO EMAIL TO KAYLYN KHALIL AT [email or web address] PT AND SISTER ALSO REQUESTING PAPERWORK BE FAXED TO PTS PCP OFFICE SO [facility] CAN FILL OUT [facility] PAPERWORK FOR PT, F: [phone]., CM TO FAX H&P TO ABOVE NUMBER.
[2023-06-03 15:58] LABS: Glucose, Whole Blood 59 mg/dL (60-115)
--- NOTE | 2023-06-03 16:41 | HO.PM.IMPN ---
Subjective Subjective Date of Service: 06/03/23 Interval History: seen and examined this morning follow up for hepatic failure, anemia, hepatic enecphalopathy no overnight events no abdominal pain Review of Systems Review of Systems: Yes all other systems are reviewed and are negative Constitutional Constitutional: Denies chills and Denies fever(s) Cardiovascular Cardiovascular: Denies chest pain, Denies palpitations and Denies dyspnea Respiratory Respiratory: Denies cough and Denies dyspnea Gastrointestinal Gastrointestinal: Denies abdominal pain, Denies nausea and Denies vomiting Endocrine Endocrine: Denies palpitations Physical Exam Vital Signs: Vital Signs: Last Vital Signs Temp 97.6 F 06/03/23 15:26 Pulse 66 06/03/23 15:26 Resp 18 06/03/23 15:26 BP 110/66 06/03/23 15:26 Pulse Ox 100 06/03/23 14:59 O2 Del Method Room Air 06/03/23 14:59 BMI result Body Mass Index 30.7 Const: General: cooperative and comfortable Nutritional Appearance: overweight Orientation/consciousness: patient oriented x3 Resp: Effort & Inspection: normal respiratory effort, able to speak in complete sentences, no respiratory distress and no use of accessory muscles Cardio: Rate: regular rate GI: Other: mild erythema right lower abdomen/pannus, nontender; abdomen nondistended +BS Inspection: No distended Palpation (GI): Soft to palpation and nontender Neuro: Other: grossly nonfocal no asterixis General: patient oriented x3, moves all extremities and CN's II-XI intact bilaterally Extrem: Other: RLE edema greater then left Objective Data Active Medications Levofloxacin (Levaquin) 500 mg in 100 mls @ 100 mls/hr IV Q24H [facility] Lactulose (Lactulose 20 Gm/30 Ml Solution) 20 gm PO TID [facility] Last Admin: 06/03/23 08:45 Dose: 20 gm Documented By: LORELEI Multivitamins/Vitamin C (Multivitamin Tablet) 1 tab PO DAILY [facility] Last Admin: 06/03/23 08:45 Dose: 1 tab Documented By: LORELEI Omeprazole (Omeprazole 40 Mg Capsule.) 40 mg PO BID@0630,1630 [facility] Last Admin: 06/03/23 05:35 Dose: 40 mg Documented By: BASSAM Pharmacy Consult (Consult Rx Etoh Phenob Im/Po) 1 each MISCELLANE ONCE PRN; Protocol PRN Reason: Consult order Phenobarbital (Phenobarbital 30 Mg Tablet) 30 mg PO BID [facility] Stop: 06/04/23 09:01 Last Admin: 06/03/23 08:46 Dose: 30 mg Documented By: LORELEI Phenobarbital (Phenobarbital 30 Mg Tablet) 30 mg PO DAILY [facility] Stop: 06/06/23 09:01 Thiamine HCl (Thiamine Hcl 100 Mg Tablet) 100 mg PO DAILY [facility] Last Admin: 06/03/23 08:45 Dose: 100 mg Documented By: LORELEI Labs 06/03/23 06:12 06/03/23 06:12 Labs: Laboratory Results - last 24 hr 06/02/23 06/02/23 06/03/23 19:36 21:33 05:34 MCV MCH MCHC RDW Plt Count MPV Immature Gran % (Auto) Neut % (Auto) Lymph % (Auto) [place] % (Auto) Eos % (Auto) Baso % (Auto) Lymph # (Auto) [place] # (Auto) Eos # (Auto) Baso # (Auto) Abs Immat Gran (auto) Absolute Neuts (auto) Absolute Nucleated RBC Nucleated RBC % (auto) PT INR APTT Fibrinogen Anion Gap Estim Creat Clear Calc Estimated GFR POC Glucose 114 133 H 127 H Random Glucose Calcium Total Bilirubin Direct Bilirubin AST ALT Alkaline Phosphatase Total Protein Albumin Blood Type Antibody Screen Crossmatch 06/03/23 06/03/23 06/03/23 06:12 07:25 08:05 MCV 87.1 MCH 31.0 MCHC 35.6 RDW 20.8 H Plt Count 74 L MPV 10.3 Immature Gran % (Auto) 0.4 Neut % (Auto) 67.9 Lymph % (Auto) 19.2 L [place] % (Auto) 9.1 Eos % (Auto) 2.7 Baso % (Auto) 0.7 Lymph # (Auto) 1.3 [place] # (Auto) 0.6 Eos # (Auto) 0.2 Baso # (Auto) 0.1 Abs Immat Gran (auto) 0.03 Absolute Neuts (auto) 4.5 Absolute Nucleated RBC 0.000 Nucleated RBC % (auto) 0.0 PT 26.2 H INR 2.2 H APTT 59.2 H Fibrinogen 124 L Anion Gap 7 L Estim Creat Clear Calc 98.4 Estimated GFR > 60 POC Glucose 132 H Random Glucose 129 H Calcium 6.4 L Total Bilirubin 2.4 H Direct Bilirubin 1.1 H AST 62 H ALT 29 Alkaline Phosphatase 116 Total Protein 5.5 L Albumin 1.7 L Blood Type O Positive Antibody Screen NEGATIVE Crossmatch See Detail 06/03/23 15:51 MCV MCH MCHC RDW Plt Count MPV Immature Gran % (Auto) Neut % (Auto) Lymph % (Auto) [place] % (Auto) Eos % (Auto) Baso % (Auto) Lymph # (Auto) [place] # (Auto) Eos # (Auto) Baso # (Auto) Abs Immat Gran (auto) Absolute Neuts (auto) Absolute Nucleated RBC Nucleated RBC % (auto) PT INR APTT Fibrinogen Anion Gap Estim Creat Clear Calc Estimated GFR POC Glucose 59 L* Random Glucose Calcium Total Bilirubin Direct Bilirubin AST ALT Alkaline Phosphatase Total Protein Albumin Blood Type Antibody Screen Crossmatch Microbiology Microbiology Results: Microbiology 06/02/23 Unknown Urine Culture - Final Urine clean catch - Urine ness top No growth. 05/31/23 16:48 Blood Culture - Preliminary Blood - Venous No growth after 48 hours. 05/31/23 16:48 Blood Culture - Preliminary Blood - Venous No growth after 48 hours. Assessment and Plan (1) Liver failure: Status: Acute (2) Cirrhosis: Status: Acute (3) Alcohol use disorder: Status: Acute Plan This is a 57 yo male with history of alcohol abuse and dependence who presents with weakness found to have acute on chronic anemia, +FOBT and CT evidence of coliitis and hepatic encephalopathy admitted for further work up. Acute hepatic encephalopathy secondary to acute liver failure mental status improved with lactulose Continue lactulose 20 mg t.i.d. Acute on chronic anemia likely multifactorial with underlying liver dz, bone marrow suppression from etoh use, possible component of hemolysis ?due to abx seen by GI, s/p EGD 06/01 - esophagitis, GEJ ulcer, portal hypertensive gastropathy; no varices noted Stool occult positive, no melena noted s/p 1 unit prbc in the ED, 1U 06/01, will transfuse additional unit today s/p Octreotide drip plan for PPI BID for 8 weeks then once daily avoid NSAIDs will need outpatient colonoscopy for complete evaluation seen by hematology - recommend to keep hemoglobin around 8 b12, folate normal will stop ceftriaxone and change to levaquin due to possibility of hemolysis with ceftriaxone hypokalemia replace and follow BMP Alcohol dependence, at high risk for withdrawal CIWA low Continue phenobarbital protocol MVI/Thiamine Addiction medicine consultation pending acute liver failure with Thrombocytopenia, hyperbilirubinemia, anemia, coagulopathy due to etoh liver disease Hep C viral load pending platelets stable. LFTs trending down US with trace perihepatic ascites not amenable to paracentesis Coagulopathy Likely secondary to liver disease possible component of hemolysis due to liver dz possible DIC r/t liver dz hypokalemia replace and follow can consider low lockhart aldactone if continues to be low Thrombocytopenia Secondary to liver disease JVD resolved Echo showing normal EF 60-65% no rwma cardiology following no need for lasix with blood unless symptomatic per cardiology Pancolitis Diffuse thickening involving entire colon Patient denies any symptoms of diarrhea or abdominal pain Cdiff neg,Stool EPEC pos per GI, can transition to po cipro on d/c for total 7 days treatment, got ceftriaxone for 3 days, now changed to levaquin Abdominal cellulitis Diffuse cellulitis noted to the right mid and lower abdomen as well as bilateral buttocks US of abdomen with abdominal wall edema - likely due to third spacing/low albumin some remaining erythema, but overall appears improved seen by ID, no further workup recommended Right leg edema US negative for DVT Hypoglycemia resolved with D50 given Hypocalemia likely secondary to hypoalbumenia Full Code Attending Dr. Navarro DVT pptx, mechanical due to suspected GI bleed/anemia Patient with multiple active issues including encephalopathy/withdrawal/anemia which will require close monitoring/treatment and expert consultation requires ongoing inpatient stay Quality Stroke Does the patient have a stroke diagnosis?: No VTE Prior VTE?: No VTE Risk Level:: Medical - moderate - high VTE Device Contraindication: N/A - Device Ordered VTE Drug Contraindication: Treatment Not Indicated
[2023-06-03 16:54] LABS: Hematocrit 24.7 % (42.0-52.0); Hemoglobin 8.5 g/dl (14.0-18.0)
[2023-06-03] MEDS: levoFLOXacin/D5W 500 MG/100 ML PIGGYBACK 100 MG IV (17:00)
[2023-06-03 20:14] LABS: Glucose, Whole Blood 113 mg/dL (60-115)
[2023-06-03] MEDS: Melatonin 3 MG TABLET 6 MG PO (20:23)
[2023-06-04 03:27] VITALS: BP 130/68; PULSE 72; RESP 20; TEMP 37.2; O2SAT 98
[2023-06-04 03:36] LABS: Glucose, Whole Blood 113 mg/dL (60-115)
[2023-06-04] MEDS: Omeprazole 40 MG CAPSULE.DR PO ×2 (06:00→16:17)
[2023-06-04 07:15] VITALS: BP 98/57; PULSE 75; RESP 18; TEMP 36.4; O2SAT 96
[2023-06-04 07:45] LABS: Glucose, Whole Blood 101 mg/dL (60-115)
[2023-06-04 07:47] LABS: MANUAL DIFF FLAG NO
[2023-06-04 08:01] LABS: Fibrinogen 136 MG/DL (259-690); INTERNATIONAL NORM RATIO 2.1 (0.9-1.1); Prothrombin Time 25.2 SEC (11.1-13.3)
[2023-06-04 08:02] LABS: Basophils Absolute Auto 0.1 X10*3/uL (0.0-0.2); Eosinophils Absolute Auto 0.2 X10*3/uL (0.0-0.4); Eosinophils Percent Auto 2.4 % (0-4); Hematocrit 22.5 % (42.0-52.0); Hemoglobin 7.9 g/dl (14.0-18.0); Imm Gran Abs Auto 0.03 X10*3/uL (0.00-0.03); Imm Gran Pct Auto 0.4 % (0.0-0.4); Lymphocytes Absolute Auto 1.2 X10*3/uL (1.2-4.9); Lymphocytes Percent Auto 17.5 % (20-40); Mean Corpuscular HGB Conc 35.1 g/dl (31.0-36.0); Mean Corpuscular Hemoglobin 30.7 pg (27.0-33.0); Mean Corpuscular Volume 87.5 fL (80.0-98.0); Monocytes Absolute Auto 0.6 X10*3/uL (0.1-1.2); Monocytes Percent Auto 9.2 % (2-11); Neutrophils Absolute Auto 4.9 x10*3/uL (2.0-8.3); Neutrophils Percent Auto 69.5 % (45-73); Red Blood Count 2.57 X10*6/uL (4.60-5.80); Red Cell Distribution Width 19.9 % (11.0-16.0)
[2023-06-04 08:08] LABS: Platelet Count 74 X10*3/uL (160-400)
[2023-06-04 08:15] LABS: Alanine Aminotransferase 28 U/L (0-40); Albumin Level 1.6 g/dL (3.5-5.0); Alkaline Phosphatase 112 U/L (39-117); Anion Gap 6 (12-20); Aspartate Amino Transferase 60 U/L (5-37); Bilirubin Total 2.6 mg/dL (0.0-1.0); Blood Urea Nitrogen 8 mg/dL (9-16); Calcium 6.3 mg/dL (8.4-10.2); Carbon Dioxide 22 mmol/L (22-29); Chloride 108 mmol/L (96-108); Creatinine Clr Calc Pharmacy 111.2; Estimated Glomerular Filt Rate > 60; Glucose Random 98 mg/dL (60-115); Lactate Dehydrogenase 342 U/L (118-273); Potassium 4.2 mmol/L (3.3-5.1); Sodium 132 mmol/L (135-145); Total Protein 5.5 g/dL (6.5-8.0)
[2023-06-04] MEDS: Lactulose 20 GM/30 ML SOLUTION PO ×3 (09:07→23:42)
[2023-06-04] MEDS: Thiamine HCL 100 MG TABLET PO (09:08)
[2023-06-04] MEDS: Multivitamin TABLET 1 TAB PO (09:08)
[2023-06-04] MEDS: PHENobarbitaL 30 MG TABLET PO (09:08)
--- NOTE | 2023-06-04 11:20 | HO.PM.IMPN ---
Subjective Subjective Date of Service: 06/04/23 Interval History: seen and examined this morning follow up for hepatic failure, anemia, hepatic enecphalopathy no overnight events no abdominal pain Review of Systems Review of Systems: Yes all other systems are reviewed and are negative Constitutional Constitutional: Denies chills and Denies fever(s) Cardiovascular Cardiovascular: Denies chest pain, Denies palpitations and Denies dyspnea Respiratory Respiratory: Denies cough and Denies dyspnea Gastrointestinal Gastrointestinal: Denies abdominal pain, Denies nausea and Denies vomiting Endocrine Endocrine: Denies palpitations Physical Exam Vital Signs: Vital Signs: Last Vital Signs Temp 97.6 F 06/04/23 07:15 Pulse 75 06/04/23 07:15 Resp 18 06/04/23 07:15 BP 98/57 L 06/04/23 07:15 Pulse Ox 96 06/04/23 07:15 O2 Del Method Room Air 06/04/23 07:15 BMI result Body Mass Index 30.7 Appearing in no acute distress lung sounds are clear to auscultation heart regular rate rhythm, clear S1, S2 positive bowel sounds, abdomen is soft, nontender neuro patient is alert x3, no focal deficits Objective Data Active Medications Dextrose (Dextrose 50 % 25 Gm/50 Ml Syringe) 25 gm IVPUSH Q15M PRN; Protocol PRN Reason: per Hypoglycemia Standing Ord. Glucose (Glucose Gel 15 Gm Gel..Gram.) 15 gm PO Q15M PRN; Protocol PRN Reason: per Hypoglycemia Standing Ord. Levofloxacin (Levaquin) 500 mg in 100 mls @ 100 mls/hr IV Q24H [facility] Last Infusion: 06/03/23 18:05 Dose: Infused Documented By: LORELEI Albumin Human (Kedbumin 25 %) 100 mls @ 100 mls/hr IV Q6H [facility] Stop: 06/05/23 06:14 Lactulose (Lactulose 20 Gm/30 Ml Solution) 20 gm PO TID [facility] Last Admin: 06/04/23 09:07 Dose: 20 gm Documented By: ULI Melatonin (Melatonin 3 Mg Tablet) 6 mg PO BEDTIME PRN PRN Reason: Insomnia Last Admin: 06/03/23 20:23 Dose: 6 mg Documented By: LELE Multivitamins/Vitamin C (Multivitamin Tablet) 1 tab PO DAILY [facility] Last Admin: 06/04/23 09:08 Dose: 1 tab Documented By: ULI Omeprazole (Omeprazole 40 Mg Capsule.Dr) 40 mg PO BID@1233,7310 [facility] Last Admin: 06/04/23 06:00 Dose: 40 mg Documented By: LELE Pharmacy Consult (Consult Rx Etoh Phenob Im/Po) 1 each MISCELLANE ONCE PRN; Protocol PRN Reason: Consult order Phenobarbital (Phenobarbital 30 Mg Tablet) 30 mg PO DAILY [facility] Stop: 06/06/23 09:01 Thiamine HCl (Thiamine Hcl 100 Mg Tablet) 100 mg PO DAILY [facility] Last Admin: 06/04/23 09:08 Dose: 100 mg Documented By: ULI Labs 06/04/23 07:13 06/04/23 07:13 Labs: Laboratory Results - last 24 hr 06/03/23 06/03/23 06/03/23 08:05 15:51 20:10 MCV MCH MCHC RDW Plt Count MPV Immature Gran % (Auto) Neut % (Auto) Lymph % (Auto) [place] % (Auto) Eos % (Auto) Baso % (Auto) Lymph # (Auto) [place] # (Auto) Eos # (Auto) Baso # (Auto) Abs Immat Gran (auto) Absolute Neuts (auto) Absolute Nucleated RBC Nucleated RBC % (auto) PT INR APTT Fibrinogen Anion Gap Estim Creat Clear Calc Estimated GFR POC Glucose 59 L* 113 Random Glucose Calcium Total Bilirubin Direct Bilirubin AST ALT Alkaline Phosphatase Lactate Dehydrogenase Total Protein Albumin Crossmatch See Detail 06/04/23 06/04/23 06/04/23 03:31 07:13 07:28 MCV 87.5 MCH 30.7 MCHC 35.1 RDW 19.9 H Plt Count 74 L MPV Not Reportable Immature Gran % (Auto) 0.4 Neut % (Auto) 69.5 Lymph % (Auto) 17.5 L [place] % (Auto) 9.2 Eos % (Auto) 2.4 Baso % (Auto) 1.0 Lymph # (Auto) 1.2 [place] # (Auto) 0.6 Eos # (Auto) 0.2 Baso # (Auto) 0.1 Abs Immat Gran (auto) 0.03 Absolute Neuts (auto) 4.9 Absolute Nucleated RBC 0.000 Nucleated RBC % (auto) 0.0 PT 25.2 H INR 2.1 H APTT 57.0 H Fibrinogen 136 L Anion Gap 6 L Estim Creat Clear Calc 111.2 Estimated GFR > 60 POC Glucose 113 101 Random Glucose 98 Calcium 6.3 L Total Bilirubin 2.6 H Direct Bilirubin 1.0 H AST 60 H ALT 28 Alkaline Phosphatase 112 Lactate Dehydrogenase 342 H Total Protein 5.5 L Albumin 1.6 L Crossmatch Microbiology Microbiology Results: Microbiology 06/02/23 Unknown Urine Culture - Final Urine clean catch - Urine ness top No growth. Assessment and Plan (1) Liver failure: Status: Acute (2) Cirrhosis: Status: Acute (3) Alcohol use disorder: Status: Acute Plan This is a 57 yo male with history of alcohol abuse and dependence who presents with weakness found to have acute on chronic anemia, +FOBT and CT evidence of coliitis and hepatic encephalopathy admitted for further work up. Acute hepatic encephalopathy secondary to acute liver failure. Resolved mental status improved with lactulose Continue lactulose 20 mg t.i.d. encourage OOB to chair PT rec home with PT Acute on chronic anemia likely multifactorial with underlying liver dz, bone marrow suppression from etoh use, possible component of hemolysis ?due to abx seen by GI, s/p EGD 06/01 - esophagitis, GEJ ulcer, portal hypertensive gastropathy; no varices noted Stool occult positive, no melena noted s/p 3 units prbc s/p Octreotide drip plan for PPI BID for 8 weeks then once daily avoid NSAIDs will need outpatient colonoscopy for complete evaluation seen by hematology - recommend to keep hemoglobin around 8 b12, folate normal will stop ceftriaxone and change to levaquin due to possibility of hemolysis with ceftriaxone Hypokalemia. Resolved replace and follow BMP Alcohol dependence, at high risk for withdrawal Continue phenobarbital protocol MVI/Thiamine Addiction medicine consultation pending Acute liver failure with Thrombocytopenia, hyperbilirubinemia, anemia, coagulopathy due to etoh liver disease Hep C viral load pending platelets stable. LFTs trending down US with trace perihepatic ascites not amenable to paracentesis Coagulopathy Likely secondary to liver disease hemolysis workup negative Hypokalemia replace and follow Thrombocytopenia Secondary to liver disease JVD resolved Echo showing normal EF 60-65% no rwma cardiology following no need for lasix with blood unless symptomatic per cardiology Pancolitis Diffuse thickening involving entire colon Patient denies any symptoms of diarrhea or abdominal pain Cdiff neg,Stool EPEC pos per GI, can transition to po cipro on d/c for total 7 days treatment, got ceftriaxone for 3 days, now changed to levaquin Abdominal cellulitis Diffuse cellulitis noted to the right mid and lower abdomen as well as bilateral buttocks US of abdomen with abdominal wall edema - likely due to third spacing/low albumin some remaining erythema, but overall appears improved seen by ID, no further workup recommended Right leg edema US negative for DVT Hypoglycemia resolved with D50 given Hypocalemia likely secondary to hypoalbumenia Full Code Attending Dr. Quick DVT pptx, mechanical due to suspected GI bleed/anemia Patient with multiple active issues including encephalopathy/withdrawal/anemia which will require close monitoring/treatment and expert consultation requires ongoing inpatient stay Quality Stroke Does the patient have a stroke diagnosis?: No VTE Prior VTE?: No VTE Risk Level:: Medical - moderate - high VTE Device Contraindication: N/A - Device Ordered VTE Drug Contraindication: Treatment Not Indicated
[2023-06-04 11:24] VITALS: BP 110/67; PULSE 63; RESP 18; TEMP 36.3; O2SAT 99
[2023-06-04] MEDS: Albumin Human 25 % 100 ML IV ×3 (12:17→23:42)
[2023-06-04 15:27] VITALS: BP 118/58; PULSE 70; RESP 18; TEMP 36.4; O2SAT 98
[2023-06-04 16:41] LABS: Glucose, Whole Blood 110 mg/dL (60-115)
[2023-06-04] MEDS: levoFLOXacin/D5W 500 MG/100 ML PIGGYBACK 100 MG IV (17:25)
[2023-06-04 19:19] VITALS: BP 106/55; PULSE 73; RESP 20; TEMP 36.7; O2SAT 98
[2023-06-04 19:59] LABS: Glucose, Whole Blood 113 mg/dL (60-115)
[2023-06-04 23:18] VITALS: BP 107/62; PULSE 69; RESP 20; TEMP 36.8; O2SAT 98
[2023-06-05] VITALS (8 sets, daily range): BP systolic 96–112; BP diastolic 53–70; PULSE 66–94; RESP 18–22; TEMP 36.5–37.1; O2SAT 97–99
[2023-06-05 03:28] LABS: Glucose, Whole Blood 104 mg/dL (60-115)
[2023-06-05] MEDS: Omeprazole 40 MG CAPSULE.DR PO ×2 (06:02→16:55)
[2023-06-05] MEDS: Albumin Human 25 % 100 ML IV (06:03)
[2023-06-05 07:56] LABS: Hematocrit 21.2 % (42.0-52.0); Hemoglobin 7.4 g/dl (14.0-18.0); Mean Corpuscular HGB Conc 34.9 g/dl (31.0-36.0); Mean Corpuscular Hemoglobin 30.7 pg (27.0-33.0); Mean Platelet Volume 11.1 fL (9.4-12.4); Red Blood Count 2.41 X10*6/uL (4.60-5.80); Red Cell Distribution Width 20.1 % (11.0-16.0); White Blood Count 6.5 X10*3/uL (4.8-10.8)
[2023-06-05 08:03] LABS: Platelet Count 82 X10*3/uL (160-400)
[2023-06-05 08:11] LABS: Anion Gap 8 (12-20); Blood Urea Nitrogen 7 mg/dL (9-16); Calcium 6.8 mg/dL (8.4-10.2); Carbon Dioxide 24 mmol/L (22-29); Chloride 107 mmol/L (96-108); Creatinine Clr Calc Pharmacy 111.2; Estimated Glomerular Filt Rate > 60; Glucose Random 92 mg/dL (60-115); Potassium 4.5 mmol/L (3.3-5.1); Sodium 134 mmol/L (135-145)
--- NOTE | 2023-06-05 09:43 | P.PNIM_ITS ---
Subjective Subjective Date of Service: 06/05/23 Interval History: seen and examined this morning follow up for hepatic failure, anemia, hepatic enecphalopathy no overnight events no abdominal pain Review of Systems Review of Systems: Yes all other systems are reviewed and are negative Constitutional Constitutional: Denies chills and Denies fever(s) Cardiovascular Cardiovascular: Denies chest pain, Denies palpitations and Denies dyspnea Respiratory Respiratory: Denies cough and Denies dyspnea Gastrointestinal Gastrointestinal: Denies abdominal pain, Denies nausea and Denies vomiting Endocrine Endocrine: Denies palpitations Physical Exam 2 Vital Signs: Vital Signs: Last Vital Signs Temp 97.7 F 06/05/23 07:58 Pulse 68 06/05/23 07:58 Resp 20 06/05/23 07:58 BP 96/58 L 06/05/23 07:58 Pulse Ox 99 06/05/23 07:58 O2 Del Method Room Air 06/05/23 07:58 BMI result Body Mass Index 30.7 Appearing in no acute distress lung sounds are clear to auscultation heart regular rate rhythm, clear S1, S2 positive bowel sounds, abdomen is soft, nontender neuro patient is alert x3, no focal deficits Objective Data Active Medications Dextrose (Dextrose 50 % 25 Gm/50 Ml Syringe) 25 gm IVPUSH Q15M PRN; Protocol PRN Reason: per Hypoglycemia Standing Ord. Glucose (Glucose Gel 15 Gm Gel..Gram.) 15 gm PO Q15M PRN; Protocol PRN Reason: per Hypoglycemia Standing Ord. Levofloxacin (Levaquin) 500 mg in 100 mls @ 100 mls/hr IV Q24H [facility] Last Infusion: 06/04/23 18:26 Dose: Infused Documented By: ULI Sodium Chloride (Ns) 100 mls @ 100 mls/hr IV ONCE ONE Stop: 06/05/23 10:41 Lactulose (Lactulose 20 Gm/30 Ml Solution) 20 gm PO TID [facility] Last Admin: 06/04/23 23:42 Dose: 20 gm Documented By: REJI Melatonin (Melatonin 3 Mg Tablet) 6 mg PO BEDTIME PRN PRN Reason: Insomnia Last Admin: 06/03/23 20:23 Dose: 6 mg Documented By: LELE Multivitamins/Vitamin C (Multivitamin Tablet) 1 tab PO DAILY [facility] Last Admin: 06/04/23 09:08 Dose: 1 tab Documented By: ULI Omeprazole (Omeprazole 40 Mg Capsule.) 40 mg PO BID@0630,8660 [facility] Last Admin: 06/05/23 06:02 Dose: 40 mg Documented By: REJI Pharmacy Consult (Consult Rx Etoh Phenob Im/Po) 1 each MISCELLANE ONCE PRN; Protocol PRN Reason: Consult order Phenobarbital (Phenobarbital 30 Mg Tablet) 30 mg PO DAILY [facility] Stop: 06/06/23 09:01 Thiamine HCl (Thiamine Hcl 100 Mg Tablet) 100 mg PO DAILY [facility] Last Admin: 06/04/23 09:08 Dose: 100 mg Documented By: ULI Labs 06/05/23 07:44 06/05/23 07:44 Labs: Laboratory Results - last 24 hr 06/04/23 06/04/23 06/05/23 15:31 19:21 03:24 MCV MCH MCHC RDW Plt Count MPV Absolute Nucleated RBC Nucleated RBC % (auto) Anion Gap Estim Creat Clear Calc Estimated GFR POC Glucose 110 113 104 Random Glucose Calcium 06/05/23 07:44 MCV 88.0 MCH 30.7 MCHC 34.9 RDW 20.1 H Plt Count 82 L MPV 11.1 Absolute Nucleated RBC 0.000 Nucleated RBC % (auto) 0.0 Anion Gap 8 L Estim Creat Clear Calc 111.2 Estimated GFR > 60 POC Glucose Random Glucose 92 Calcium 6.8 L D Assessment and Plan (1) Liver failure: Status: Acute (2) Cirrhosis: Status: Acute (3) Alcohol use disorder: Status: Acute Plan 57 yo male with history of alcohol abuse and dependence who presents with weakness found to have acute on chronic anemia, +FOBT and CT evidence of coliitis and hepatic encephalopathy admitted for further work up. Pancolitis Diffuse thickening involving entire colon Patient denies any symptoms of diarrhea or abdominal pain Cdiff neg,Stool EPEC pos per GI, can transition to po cipro on d/c for total 7 days treatment, got ceftriaxone for 3 days, now changed to levaquin Acute on chronic anemia likely multifactorial with underlying liver dz, bone marrow suppression from etoh use, possible component of hemolysis ?due to abx seen by GI, s/p EGD 06/01 - esophagitis, GEJ ulcer, portal hypertensive gastropathy; no varices noted Stool occult positive, no melena noted s/p 3 units prbc s/p Octreotide drip plan for PPI BID for 8 weeks then once daily avoid NSAIDs will need outpatient colonoscopy for complete evaluation seen by hematology - recommend to keep hemoglobin around 8 HH today 7.4/21.2, transfuse 1 unit PRBC Acute hepatic encephalopathy secondary to acute liver failure. Resolved mental status improved with lactulose Continue lactulose 20 mg t.i.d. encourage OOB to chair PT rec home with PT Acute liver failure with Thrombocytopenia, hyperbilirubinemia, anemia, coagulopathy due to etoh liver disease Hep C viral load platelets stable. LFTs trending down US with trace perihepatic ascites not amenable to paracentesis Hypokalemia. Resolved replace and follow BMP Alcohol dependence, at high risk for withdrawal Continue phenobarbital protocol MVI/Thiamine Addiction medicine team following Coagulopathy Likely secondary to liver disease hemolysis workup negative Hypokalemia replace and follow Thrombocytopenia Secondary to liver disease JVD resolved Echo showing normal EF 60-65% no rwma cardiology following no need for lasix with blood unless symptomatic per cardiology Abdominal cellulitis Diffuse cellulitis noted to the right mid and lower abdomen as well as bilateral buttocks US of abdomen with abdominal wall edema - likely due to third spacing/low albumin some remaining erythema, but overall appears improved seen by ID, no further workup recommended Right leg edema US negative for DVT Hypoglycemia resolved with D50 given Hypocalemia likely secondary to hypoalbumenia Full Code Attending Dr. Quick DVT pptx, mechanical due to suspected GI bleed/anemia Patient with multiple active issues including encephalopathy/withdrawal/anemia which will require close monitoring/treatment and expert consultation requires ongoing inpatient stay Quality Stroke Does the patient have a stroke diagnosis?: No VTE Prior VTE?: No VTE Risk Level:: Medical - moderate - high VTE Device Contraindication: N/A - Device Ordered VTE Drug Contraindication: Treatment Not Indicated
[2023-06-05] MEDS: Multivitamin TABLET 1 TAB PO (09:51)
[2023-06-05] MEDS: Lactulose 20 GM/30 ML SOLUTION PO ×3 (09:51→20:09)
[2023-06-05] MEDS: PHENobarbitaL 30 MG TABLET PO (09:52)
[2023-06-05] MEDS: Thiamine HCL 100 MG TABLET PO (09:54)
[2023-06-05 12:06] LABS: Glucose, Whole Blood 89 mg/dL (60-115)
[2023-06-05] MEDS: levoFLOXacin 500 MG TABLET PO (16:55)
[2023-06-05] MEDS: Melatonin 3 MG TABLET 6 MG PO (21:22)
[2023-06-06] VITALS: BP 99/62; PULSE 80; RESP 20; TEMP 37.1; O2SAT 96
[2023-06-06 04:00] VITALS: BP 103/56; PULSE 79; RESP 20; TEMP 36.7; O2SAT 96
[2023-06-06] MEDS: Omeprazole 40 MG CAPSULE.DR PO ×2 (05:09→18:13)
[2023-06-06 06:58] LABS: Hematocrit 23.1 % (42.0-52.0); Hemoglobin 8.1 g/dl (14.0-18.0); Mean Corpuscular HGB Conc 35.1 g/dl (31.0-36.0); Mean Corpuscular Hemoglobin 30.7 pg (27.0-33.0); Mean Corpuscular Volume 87.5 fL (80.0-98.0); Mean Platelet Volume 11.8 fL (9.4-12.4); Platelet Count 75 X10*3/uL (160-400); Red Blood Count 2.64 X10*6/uL (4.60-5.80); Red Cell Distribution Width 19.3 % (11.0-16.0); White Blood Count 7.4 X10*3/uL (4.8-10.8)
[2023-06-06 07:07] LABS: Alanine Aminotransferase 23 U/L (0-40); Albumin Level 2.2 g/dL (3.5-5.0); Alkaline Phosphatase 91 U/L (39-117); Anion Gap 9 (12-20); Aspartate Amino Transferase 58 U/L (5-37); Bilirubin Total 2.9 mg/dL (0.0-1.0); Blood Urea Nitrogen 7 mg/dL (9-16); Calcium 7.1 mg/dL (8.4-10.2); Carbon Dioxide 21 mmol/L (22-29); Chloride 106 mmol/L (96-108); Creatinine Clr Calc Pharmacy 97.5; Estimated Glomerular Filt Rate > 60; Glucose Random 92 mg/dL (60-115); Potassium 4.5 mmol/L (3.3-5.1); Sodium 131 mmol/L (135-145); Total Protein 5.6 g/dL (6.5-8.0)
[2023-06-06 08:00] VITALS: BP 103/56; PULSE 78; RESP 20; TEMP 37.1; O2SAT 96
--- NOTE | 2023-06-06 09:38 | P.PNIM_ITS ---
Subjective Subjective Date of Service: 06/06/23 Interval History: seen and examined this morning follow up for hepatic failure, anemia, hepatic enecphalopathy no overnight events no abdominal pain Review of Systems Review of Systems: Yes all other systems are reviewed and are negative Constitutional Constitutional: Denies chills and Denies fever(s) Cardiovascular Cardiovascular: Denies chest pain, Denies palpitations and Denies dyspnea Respiratory Respiratory: Denies cough and Denies dyspnea Gastrointestinal Gastrointestinal: Denies abdominal pain, Denies nausea and Denies vomiting Endocrine Endocrine: Denies palpitations Physical Exam 2 Vital Signs: Vital Signs: Last Vital Signs Temp 98.8 F 06/06/23 08:00 Pulse 78 06/06/23 08:00 Resp 20 06/06/23 08:00 BP 103/56 L 06/06/23 08:00 Pulse Ox 96 06/06/23 08:00 O2 Del Method Room Air 06/06/23 08:00 BMI result Body Mass Index 30.7 Appearing in no acute distress lung sounds are clear to auscultation heart regular rate rhythm, clear S1, S2 positive bowel sounds, abdomen is soft, nontender neuro patient is alert x3, no focal deficits Objective Data Active Medications Dextrose (Dextrose 50 % 25 Gm/50 Ml Syringe) 25 gm IVPUSH Q15M PRN; Protocol PRN Reason: per Hypoglycemia Standing Ord. Glucose (Glucose Gel 15 Gm Gel..Gram.) 15 gm PO Q15M PRN; Protocol PRN Reason: per Hypoglycemia Standing Ord. Lactulose (Lactulose 20 Gm/30 Ml Solution) 20 gm PO TID [facility] Last Admin: 06/05/23 20:09 Dose: 20 gm Documented By: CICI Levofloxacin (Levofloxacin 500 Mg Tablet) 500 mg PO Q24H [facility] Last Admin: 06/05/23 16:55 Dose: 500 mg Documented By: AMIEMORP Melatonin (Melatonin 3 Mg Tablet) 6 mg PO BEDTIME PRN PRN Reason: Insomnia Last Admin: 06/05/23 21:22 Dose: 6 mg Documented By: CICI Multivitamins/Vitamin C (Multivitamin Tablet) 1 tab PO DAILY [facility] Last Admin: 06/05/23 09:51 Dose: 1 tab Documented By: AMIEMORP Omeprazole (Omeprazole 40 Mg Mikayla.) 40 mg PO BID@0630,1630 [facility] Last Admin: 06/06/23 05:09 Dose: 40 mg Documented By: CICI Pharmacy Consult (Consult Rx Etoh Phenob Im/Po) 1 each MISCELLANE ONCE PRN; Protocol PRN Reason: Consult order Thiamine HCl (Thiamine Hcl 100 Mg Tablet) 100 mg PO DAILY [facility] Last Admin: 06/05/23 09:54 Dose: 100 mg Documented By: PODMORP Labs 06/06/23 06:19 06/06/23 06:19 Labs: Laboratory Results - last 24 hr 06/03/23 06/05/23 06/06/23 08:05 12:00 06:19 MCV 87.5 MCH 30.7 MCHC 35.1 RDW 19.3 H Plt Count 75 L MPV 11.8 Absolute Nucleated RBC 0.000 Nucleated RBC % (auto) 0.0 Anion Gap 9 L Estim Creat Clear Calc 97.5 Estimated GFR > 60 POC Glucose 89 Random Glucose 92 Calcium 7.1 L Total Bilirubin 2.9 H Direct Bilirubin 1.0 H AST 58 H ALT 23 Alkaline Phosphatase 91 Total Protein 5.6 L Albumin 2.2 L Blood Type O Positive Antibody Screen NEGATIVE Crossmatch See Detail Microbiology Microbiology Results: Microbiology 05/31/23 16:48 Blood Culture - Final Blood - Venous No growth after 5 days. 05/31/23 16:48 Blood Culture - Final Blood - Venous No growth after 5 days. Assessment and Plan (1) Liver failure: Status: Acute (2) Cirrhosis: Status: Acute (3) Alcohol use disorder: Status: Acute Plan 57 yo male with history of alcohol abuse and dependence who presents with weakness found to have acute on chronic anemia, +FOBT and CT evidence of coliitis and hepatic encephalopathy admitted for further work up. Pancolitis Diffuse thickening involving entire colon Patient denies any symptoms of diarrhea or abdominal pain Cdiff neg,Stool EPEC pos per GI, can transition to po cipro on d/c for total 7 days treatment, got ceftriaxone for 3 days, now changed to levaquin Acute on chronic anemia likely multifactorial with underlying liver dz, bone marrow suppression from etoh use, possible component of hemolysis ?due to abx seen by GI, s/p EGD 06/01 - esophagitis, GEJ ulcer, portal hypertensive gastropathy; no varices noted Stool occult positive, no melena noted s/p 3 units prbc s/p Octreotide drip plan for PPI BID for 8 weeks then once daily avoid NSAIDs will need outpatient colonoscopy for complete evaluation seen by hematology - recommend to keep hemoglobin around 8 HH today 7.4/21.2, transfuse 1 unit PRBC Acute hepatic encephalopathy secondary to acute liver failure. Resolved mental status improved with lactulose Continue lactulose 20 mg t.i.d. encourage OOB to chair PT rec home with PT Acute liver failure with Thrombocytopenia, hyperbilirubinemia, anemia, coagulopathy due to etoh liver disease Hep C viral load platelets stable. LFTs trending down US with trace perihepatic ascites not amenable to paracentesis Anxiety psych consult for possible medication initiation Hypokalemia. Resolved replace and follow BMP Alcohol dependence, at high risk for withdrawal Continue phenobarbital protocol MVI/Thiamine Addiction medicine team following Coagulopathy Likely secondary to liver disease hemolysis workup negative Hypokalemia replace and follow Thrombocytopenia Secondary to liver disease JVD resolved Echo showing normal EF 60-65% no rwma cardiology following no need for lasix with blood unless symptomatic per cardiology Abdominal cellulitis Diffuse cellulitis noted to the right mid and lower abdomen as well as bilateral buttocks US of abdomen with abdominal wall edema - likely due to third spacing/low albumin some remaining erythema, but overall appears improved seen by ID, no further workup recommended Right leg edema US negative for DVT Hypoglycemia resolved with D50 given Hypocalemia likely secondary to hypoalbumenia Full Code Attending Dr. Quick DVT pptx, mechanical due to suspected GI bleed/anemia Patient with multiple active issues including encephalopathy/withdrawal/anemia which will require close monitoring/treatment and expert consultation requires ongoing inpatient stay Quality Stroke Does the patient have a stroke diagnosis?: No VTE Prior VTE?: No VTE Risk Level:: Medical - moderate - high VTE Device Contraindication: N/A - Device Ordered VTE Drug Contraindication: Treatment Not Indicated
[2023-06-06] MEDS: Multivitamin TABLET 1 TAB PO (11:38)
[2023-06-06] MEDS: Lactulose 20 GM/30 ML SOLUTION PO ×3 (11:39→21:11)
[2023-06-06] MEDS: PHENobarbitaL 30 MG TABLET PO (11:39)
[2023-06-06 11:45] VITALS: BP 106/58; PULSE 72; RESP 20; TEMP 36.7; O2SAT 100
[2023-06-06] MEDS: Thiamine HCL 100 MG TABLET PO (11:45)
[2023-06-06 16:00] VITALS: BP 113/56; PULSE 63; RESP 20; TEMP 36.4; O2SAT 97
[2023-06-06] MEDS: levoFLOXacin 500 MG TABLET PO (18:13)
[2023-06-06 19:21] VITALS: BP 110/55; PULSE 86; RESP 17; TEMP 36.5; O2SAT 97
[2023-06-06] MEDS: Melatonin 3 MG TABLET 6 MG PO (23:06)
[2023-06-07] VITALS: BP 112/59; PULSE 80; RESP 20; TEMP 36.1; O2SAT 98
[2023-06-07 03:07] VITALS: BP 103/63; PULSE 80; RESP 20; TEMP 36.8; O2SAT 97
[2023-06-07] MEDS: Omeprazole 40 MG CAPSULE.DR PO (05:13)
[2023-06-07 07:23] VITALS: BP 100/62; PULSE 81; RESP 19; TEMP 36.2; O2SAT 97
[2023-06-07 07:26] LABS: Anion Gap 8 (12-20); Blood Urea Nitrogen 10 mg/dL (9-16); Calcium 7.3 mg/dL (8.4-10.2); Carbon Dioxide 24 mmol/L (22-29); Chloride 106 mmol/L (96-108); Creatinine Clr Calc Pharmacy 117.5; Estimated Glomerular Filt Rate > 60; Glucose Random 80 mg/dL (60-115); Potassium 5.4 mmol/L (3.3-5.1); Sodium 133 mmol/L (135-145)
[2023-06-07] MEDS: Lactulose 20 GM/30 ML SOLUTION PO (07:46)
[2023-06-07] MEDS: Multivitamin TABLET 1 TAB PO (07:46)
[2023-06-07 07:49] LABS: Glucose, Whole Blood 86 mg/dL (60-115)
[2023-06-07] MEDS: Thiamine HCL 100 MG TABLET PO (07:50)
--- NOTE | 2023-06-07 08:59 | P.DS_ITS ---
DS: Providers Provider Date of Service: 06/07/23 Date of admission: 05/31/23 10:14 Primary care physician: Penelope Elizondo NP Consults: 05/31/23 10:32 Consult to Gastroenterology Routine Consulting Provider: Brenna Mena Reason for consultation: pancolitis/anemia/colitis, liver dz/hepatic encephalopathy, needs to establ 05/31/23 10:37 Addiction Medicine Routine Consulting Provider: Addiction Covering Reason for consultation: alcohol use disorder, establishing care 06/01/23 09:17 Consult to Infectious Diseases Routine Consulting Provider: [facility] Infectious Disease Reason for consultation: abd wall cellulitis 06/01/23 11:32 Consult to Cardiology Routine Consulting Provider: [facility] Cardiovascular Services Reason for consultation: Fluid overload 06/02/23 07:39 Consult to Hematology / Oncology Routine Consulting Provider: Fernanda Shepherd Reason for consultation: anemia, hemolysis Has provider been notified: No 06/06/23 09:38 Consult to Psychiatry Routine Consulting Provider: Psych Covering Reason for consultation: medication initiation for depression, anxiety DS: Diagnosis Discharge Diagnosis (1) Liver failure: Status: Acute (2) Cirrhosis: Status: Acute (3) Alcohol use disorder: Status: Acute DS: Summary Hospital Course Hospital Course: History and physical as per admitting provider. The patient is a 57 year old male with a PMH of alcohol use and dependence, MAKENNA/CKD(likely stage 2) and bariatric surgery who presented to [facility] ED accompanied by his sister. The patient who is a resident in the [place], was brought here to [facility] as the patient's sister is planning to move him here. On the day prior to admission, the patient was apparantly admitted at a hospital in [facility]. Unclear the reason for admission, but per patient reports, it was for leg swelling and weakness. The patient is a vague historian. He reports weakness but denies other complaints. He denies current diarrhea, although reports some last week. He denies melena / hematemesis. He reports daily drinking, with the last drink about the day before admission. He denies any fevers or chills. He is unsure if he was prescribed any antibiotics in the recent past. In the ED, work up revealed diffuse coliitis on CT. His H/H is around 7. He has been given 1 unit PRBC and initiated on phenobarbital. He will be admitted for further work up. Pt seen and examined around 10am. He appears comfortable, but some what confused. He has obvious asterixis. He is oriented to self and time. 57-year-old man admitted with acute hepatic encephalopathy secondary to acute liver failure. Treated with lactulose t.i.d., noted to have thrombocytopenia, hyperbilirubinemia, anemia and coagulopathy. Abdominal CT scan showed hepatic steatosis without cirrhosis. Had abdominal ultrasound with only trace of ascites fluid non amenable to paracentesis. His mental status improved significantly with lactulose. He was seen and evaluated by Gastroenterology and underwent endoscopy with no findings of varices but grade C esophagitis, GEJ ulcer with clean base, portal hypertensive gastropathy, enteroenteric anastomosis. Recommendations continue PPI b.i.d. for 8 weeks then once daily, was found to have EPEC in the stool therefore ciprofloxacin was recommended for 7 days. He should avoid NSAIDs. He will likely need a colonoscopy which will be done outpatient. Acute on chronic anemia likely secondary to liver disease, some bone marrow suppression from alcohol abuse, hemolysis workup negative. He was transfused a total of 3 units packed red blood cells, status post octreotide drip with IV PPI. Had EGD as above. H&H has been stable and no overt signs of bleeding noted, outpatient colonoscopy. Discussed this with his sister, he can follow-up with Gastroenterology as needed. Hepatitis-C. He should follow-up with Dr. Charlene Hinojosa for treatment outpatient Anxiety. Discussed case with Psychiatry. Patient does have a primary care provider appointment coming up in July and he should follow-up at that time, starting him on an antidepressive medication without follow-up could potentially come with risk as he will have no immediate follow-up. Patient and sister agreed. Alcohol abuse. Was seen and evaluated by recovery team. Patient can follow-up with Cynthia Alejandra in her office. We will be sent home with multivitamin and thiamine. Heavily encouraged to not drink any type of alcohol. Coagulopathy. Secondary to liver disease, hemolysis workup was negative. Thrombocytopenia. Secondary to liver disease. Stable platelet count Third spacing to abdomen. Initially thought to be cellulitis to right mid and lower abdominal area, seen evaluated by ID who recommended no further workup as it appeared to be more related to low albumin. Overall appearance has improved. Right lower extremity edema. Has been chronic. Venous Doppler ultrasound negative for DVT. Hypoglycemia. No history of diabetes, likely secondary to acute liver failure. Time Attestation Discharge coordination time: Greater than 30 minutes Quality: Safe Use of Opioids Does Pt have an Active Cancer Diagnosis on the Problem List?: No Quality: Stroke Does the patient have a stroke diagnosis?: No Physical Exam Vital Signs: Vital Signs: Last Vital Signs Temp 97.1 F 06/07/23 07:23 Pulse 81 06/07/23 07:23 Resp 19 06/07/23 07:23 BP 100/62 06/07/23 07:23 Pulse Ox 97 06/07/23 07:23 O2 Del Method Room Air 06/07/23 07:23 BMI result Body Mass Index 30.7 Appearing in no acute distress head is normocephalic atraumatic eyes pupils are PERRLA sclera is anicteric mouth throat mucous membranes are intact and moist neck is supple no lymphadenopathy, no JVD noted lung sounds are clear to auscultation heart regular rate rhythm, clear S1, S2 positive bowel sounds, abdomen is soft, nontender neuro patient is alert x3, no focal deficits DS: Data Data Completed and Pending Completed studies during hospitalization [Text1]: Procedures Detoxification Services for Substance Abuse Treatment (09/11/22) Extirpation of Matter from Penis, Open Approach (09/11/22) Resection of Prepuce, External Approach (09/11/22) Transfusion of Nonautologous Platelets into Peripheral Vein, Percutaneous Approach (09/11/22) Transfusion of Nonautologous Red Blood Cells into Peripheral Vein, Percutaneous Approach (09/11/22) Labs on day of discharge: Laboratory Results - last 24 hr 06/07/23 06/07/23 06:24 07:21 Hold Purple Top SEE NOTE Sodium 133 L Potassium 5.4 H Chloride 106 Carbon Dioxide 24 Anion Gap 8 L BUN 10 Creatinine 0.88 Estim Creat Clear Calc 117.5 Estimated GFR > 60 POC Glucose 86 Random Glucose 80 Calcium 7.3 L Discharge Plan Discharge Anticipated Discharge Date/Time: 06/07/23 08:39 Patient Disposition: Home, Self-Care Discharge Diagnosis: Acute liver failure Acute hepatic encephalopathy Castaneda colitis Acute on chronic anemia Thrombocytopenia Hyperbilirubinemia Coagulopathy Alcohol dependence Referrals: Penelope Elizondo NP [Primary Care Provider] - 1 Week Mitra Hinojosa MD [Physician] - None (Treatment of hepatitis c) Cynthia Alejandra CNP [Nurse Practitioner] - 1 Week Brenna Mena MD [Physician] - None Discharge Medications: New omeprazole 40 mg Capsule,Delayed Release(Dr/Ec) 40 mg PO BID@0630,1630 56 Days Qty: 142 0RF Rx Instructions: twice daily for 8 weeks then once daily thiamine mononitrate (vit B1) 100 mg Tablet 100 mg PO DAILY Qty: 90 0RF lactulose 20 gram/30 mL Solution 20 g PO TID Qty: 3000 0RF multivitamin [Daily-Sherry] Tablet 1 tab PO DAILY Qty: 90 0RF ciprofloxacin HCl [Cipro] 250 mg tablet 250 mg PO BID Qty: 14 0RF Continued (DME) jenni [facility] See Rx Instructions .Route Qty: 1 0RF Rx Instructions: As directed Discontinued ibuprofen 600 mg tablet 600 mg PO TID esomeprazole magnesium [Nexium] 20 mg Capsule,Delayed Release(Dr/Ec) 20 mg PO DAILY PRN (Reason: Heartburn) Diet: Advance to usual diet Activity on Discharge: As tolerated Stand Alone Forms: Patient Portal Discharge page Care Plan Goals: Do not drink alcohol which includes: wine, beer and liquor Some suggestions for diet: Foods to Eat Fruits and vegetables (raw or cooked without butter, oil, or salt) Eggs, egg whites, Cooked fish (salmon, tuna) Lean chicken or turkey (without the skin)?Low-fat Kiswahili yogurt, Cream cheese, ricotta, Low-fat cheese (low-sodium cottage cheese, fresh mozzarella)?Nuts and seeds (unsalted)?Dried beans and legumes, Nut butters (unsalted)Tofu, Fortified milk alternatives (almond, soy, rice) Margarine, Oats, Whole grain bread, crackers, and cereals,Brown rice,?Gordon oil?Fresh herbs?Low-fat milk, ?Garlic, Nancy, Quinoa, couscous, pasta, rice?Granola and cereal bars?Coconut water?Meal/nutritional supplements Foods to Avoid Raw or partially raw fish and shellfish (e.g., oysters, clams)?Fa st food, fried food, Red meat, ?Canned food (meat, soup, vegetables) Packaged, processed snacks and meals?(incl. frozen)Hot dogs, sausage, lunchmeat, ?Sauerkraut, pickles,?Buttermilk,?Tomato sauce or paste, Instant hot cereal or oatmeal, Potato chips, pretzels, rice cakes, crackers, popcorn, Refined white flour pasta, bread, and white rice, Oils high in trans fat or partially hydrogenated oils (palm oil, coconut oil)Breading, coating, and stuffing mixes,?Full-fat dairy products, Bread, biscuit, pancake, and baked good mixes?Pastries, cake, cookies, muffins, doughnuts?Cymraes, Parmesan, Montenegrin, blue, feta, cottage cheese, cheese slices or spreads, Pudding, custard, or frosting mixes, Table salt, sea salt, mixed seasonings, Ketchup, soy sauce, salsa, salad dressing, steak sauce, Bouillon cubes, broth, gravy, and stock, Caffeinated tea, coffee, and soft drinks, Alcohol Health Concerns: Acute liver failure Acute hepatic encephalopathy Castaneda colitis Acute on chronic anemia Thrombocytopenia Hyperbilirubinemia Coagulopathy Alcohol dependence Plan of Treatment: Take all medications as prescribed Follow-up with Cynthia Aeljandra for history of substance abuse Follow-up with Gastroenterology as needed Follow-up with primary care provider when appointment is scheduled Follow-up with Dr. Charlene Hinojosa for treatment of hepatitis-C Assessment: See discharge summary
--- NOTE | 2023-06-07 10:13 | MHC.CM.PN ---
Addendum entered by Stacia Monson RN 06/07/23 13:46: CM MET W/SISTER AND PT AT BEDSIDE HOWEVER PT DOZING, JOSEF PROVIDED SISTER W/INFO FOR [facility]/BORROWED MEDICAL EQUIPMENT, [facility] AND [employer] FREE DME EXCHANGE ON [address], ADDRESS AND CONTACT NUMBER FOR BOTH PLACED IN PRINTABLE DCP. Original Note: PT MEDICALLY CLEARED FOR DC TO [facility], CM MET W/PT W/OUT ANY FAMILY PRESENT AND PT DOES CONFIRM HE DID RETURN TO [place] AFTER LAST ADMISSION IN SEPTEMBER 2022 HOWEVER HE DOES WISH TO REMAIN IN [place] AND DOES NOT PLAN TO RETURN TO [place], PT HAS NEW PCP APPT IN [place] AND WILL QUALIFY FOR HOME SERVICES ONCE HE SEE'S PCP HOWEVER UNSURE FOR HOW LONG PT'S BLUE CROSS WILL BE IN EFFECT AND PT WILL NEED TO APPLY FOR MH, PT'S SISTER HAS MET W/FS AND IS AWARE THEY ONLY ASSIST W/MH APPLICATIONS. [facility] WILL TRANSPORT.
[2023-06-07 11:01] VITALS: BP 122/66; PULSE 82; RESP 18; TEMP 36.5; O2SAT 97
== END 2023-06-07 15:00 | disposition home or self-care (01) | DRG 248 ==
LOC: HO.ED 05:58 → HO.EDOVER 10:27 → HO.S3 14:38 → HO.IMC 06-01 12:45
PROVIDERS: Internal Medicine; Physician Assistant; Physician Assistant Medical; Physician Assistant Surgical; Admitting Provider Family Medicine; Emergency Provider Student in an Organized Health Care Education/Training Program; PCP Registered Nurse; Visit Provider Nurse Practitioner Acute Care
PROC: 0DJ08ZZ Inspection of Upper Intestinal Tract, Via Natural or Artificial Opening Endoscopic (ICD-10-PCS; CPT 43235; principal; 2023-06-01 17:50)
DX: A04.0 Enteropathogenic Escherichia coli infection (principal); K72.00 Acute and subacute hepatic failure without coma; E11.22 Type 2 diabetes mellitus with diabetic chronic kidney disease; D68.4 Acquired coagulation factor deficiency; K76.6 Portal hypertension; D69.59 Other secondary thrombocytopenia; N18.2 Chronic kidney disease, stage 2 (mild); K22.10 Ulcer of esophagus without bleeding; E88.09 Other disorders of plasma-protein metabolism, not elsewhere classified; L03.311 Cellulitis of abdominal wall; K31.89 Other diseases of stomach and duodenum; K70.31 Alcoholic cirrhosis of liver with ascites; K76.82 Hepatic encephalopathy; L03.317 Cellulitis of buttock; D63.1 Anemia in chronic kidney disease; F41.9 Anxiety disorder, unspecified; B19.20 Unspecified viral hepatitis C without hepatic coma; E16.2 Hypoglycemia, unspecified; F10.239 Alcohol dependence with withdrawal, unspecified; F19.90 Other psychoactive substance use, unspecified, uncomplicated; Z98.85 Transplanted organ removal status; Y90.4 Blood alcohol level of 80-99 mg/100 ml; F17.210 Nicotine dependence, cigarettes, uncomplicated; Z71.6 Tobacco abuse counseling; Z79.899 Other long term (current) drug therapy
CPT/HCPCS: 36415; 71045; 74177; 76705; 80048; 80053; 80076; 80307; 81001; 81003; 82105; 82140; 82272; 82607; 82746; 82947; 83010; 83615; 85014; 85018; 85025; 85027; 85045; 85384; 85610; 85730; 86704; 86706; 86709; 86803; 86850; 86880; 86900; 86901; 86923; 87040; 87086; 87340; 87493; 87507; 87522; 93306; 93971; 93975; 97116; 97162; 99285; C9113; J0171; J0696; J1940; J1956; J2354; J2371; J2560; J2704; J3010; J3430; P9016; P9047; Q9957; Q9967

== ENCOUNTER 2023-05-31 10:14 | Outpatient (BNV) | payer BC, SELFPAY | END 2023-06-02 09:15 | PROVIDERS: Admitting Provider Family Medicine; Emergency Provider Student in an Organized Health Care Education/Training Program; PCP Registered Nurse; Visit Provider Physician Assistant Surgical | DX: R18.8 Other ascites (principal) | CPT/HCPCS: 76705 ==

== ENCOUNTER 2023-05-31 10:14 | Outpatient (BNV) | payer BC, SELFPAY | END 2023-06-01 07:00 | PROVIDERS: Admitting Provider Family Medicine; Emergency Provider Student in an Organized Health Care Education/Training Program; PCP Registered Nurse; Visit Provider Internal Medicine Cardiovascular Disease | DX: I50.9 Heart failure, unspecified (principal) | CPT/HCPCS: 93306 ==

== ENCOUNTER → 2023-05-31 10:14 | Outpatient (BNV) | payer BC, SELFPAY | PROVIDERS: Admitting Provider Family Medicine; Emergency Provider Student in an Organized Health Care Education/Training Program; PCP Registered Nurse; Visit Provider Internal Medicine Cardiovascular Disease | DX: D64.9 Anemia, unspecified (principal); Z01.810 Encounter for preprocedural cardiovascular examination | CPT/HCPCS: 99223 ==

== ENCOUNTER → 2023-05-31 10:14 | Outpatient (BNV) | payer BC, SELFPAY | PROVIDERS: Admitting Provider Family Medicine; Emergency Provider Student in an Organized Health Care Education/Training Program; Visit Provider Internal Medicine | DX: K74.60 Unspecified cirrhosis of liver (principal); K28.9 Gastrojejunal ulcer, unspecified as acute or chronic, without hemorrhage or perforation; K20.90 Esophagitis, unspecified without bleeding | CPT/HCPCS: 43235; 99223 ==

== ENCOUNTER → 2023-05-31 10:14 | Outpatient (BNV) | payer BC, SELFPAY | PROVIDERS: Admitting Provider Family Medicine; Emergency Provider Student in an Organized Health Care Education/Training Program; PCP Registered Nurse; Visit Provider Nurse Practitioner Psychiatric/Mental Health | DX: F10.90 Alcohol use, unspecified, uncomplicated (principal) | CPT/HCPCS: 99232 ==

== ENCOUNTER → 2023-05-31 10:14 | Outpatient (BNV) | payer BC, SELFPAY | PROVIDERS: Admitting Provider Family Medicine; Emergency Provider Student in an Organized Health Care Education/Training Program; PCP Registered Nurse; Visit Provider Internal Medicine | DX: D64.9 Anemia, unspecified (principal); K74.60 Unspecified cirrhosis of liver; F10.20 Alcohol dependence, uncomplicated | CPT/HCPCS: 99222 ==

== ENCOUNTER → 2023-05-31 10:14 | Outpatient (BNV) | payer BC, SELFPAY | PROVIDERS: Admitting Provider Family Medicine; Emergency Provider Student in an Organized Health Care Education/Training Program; Visit Provider Family Medicine | DX: K72.90 Hepatic failure, unspecified without coma (principal); K74.60 Unspecified cirrhosis of liver; F10.139 Alcohol abuse with withdrawal, unspecified; K76.82 Hepatic encephalopathy; D50.0 Iron deficiency anemia secondary to blood loss (chronic) | CPT/HCPCS: 99223; 99232; 99233; 99238 ==

== ENCOUNTER → 2023-05-31 10:14 | Outpatient (BNV) | payer BC, SELFPAY | PROVIDERS: Admitting Provider Family Medicine; Emergency Provider Student in an Organized Health Care Education/Training Program; PCP Registered Nurse; Visit Provider Internal Medicine | DX: K72.90 Hepatic failure, unspecified without coma (principal); F19.90 Other psychoactive substance use, unspecified, uncomplicated; K74.60 Unspecified cirrhosis of liver; F10.90 Alcohol use, unspecified, uncomplicated | CPT/HCPCS: 99222 ==

== ENCOUNTER 2023-06-13 06:14 | Inpatient (IN) | payer BC, SELFPAY ==
--- NOTE | ~2023-06-13 | US_ITS ---
EXAMINATION: US ABDOMEN LIMITED CLINICAL INFORMATION: Ascites check. COMPARISON: CT scan abdomen and pelvis 05/31/2023 TECHNIQUE: Real-time imaging of the 4 quadrants of the abdomen. Technically limited study due to patient's altered mental status and movement. FINDINGS: FREE FLUID: Trace free fluid is seen inferior to the right lobe of the liver. US/US abdomen limited IMPRESSION: Trace free fluid was seen inferior to the right lobe of the liver.
--- NOTE | ~2023-06-13 | XR_ITS ---
EXAMINATION: XR CHEST CLINICAL INFORMATION: Altered mental status COMPARISON: Chest 06/01/2023 TECHNIQUE: AP upright portable view of the chest was obtained. 8:39 AM FINDINGS: Lung volumes are low, partially obscuring the heart borders. Elevation of the left hemidiaphragm is noted. There are bibasilar streaky opacities and upper lobe/perihilar most suggestive of atelectasis, less likely pneumonia. Peribronchial thickening is noted. No pleural effusion. No acute osseous abnormality. XR/XR chest 1V IMPRESSION: Low lung volumes with bibasilar and upper lobe atelectasis, less likely pneumonia.
--- NOTE | ~2023-06-13 | CT_ITS ---
EXAMINATION: CT HEAD WITHOUT CONTRAST CLINICAL INFORMATION: AMS (altered mental status) COMPARISON: None available. TECHNIQUE: Contiguous axial imaging was performed from the skull base to vertex without intravenous administration of contrast. This CT examination was performed using dose optimization techniques as appropriate, variously including the following: *Automated exposure control *Adjustment of mA and/or kV according to patient size (this includes techniques or standardized protocols for targeted exams where dose is matched to indication/reason for exam; i.e. extremities or head) *Use of iterative reconstruction technique DLP: 700 mGy-cm FINDINGS: There is no intracranial hemorrhage or evidence of acute territorial infarction. No mass effect or midline shift. No extra-axial fluid collection. Brewer-white matter differentiation is preserved. The ventricles are normal. The sulci and gyri are normal. There is mild low-attenuation in the periventricular white matter consistent with chronic small vessel ischemic disease. The visualized paranasal sinuses and mastoid air cells are well aerated and clear. CT/CT head/brain wo IV con IMPRESSION: No acute intracranial pathology.
--- NOTE | ~2023-06-13 | CT_ITS ---
EXAMINATION: CT CHEST WITHOUT CONTRAST CLINICAL INFORMATION: Cough; question pneumonia. COMPARISON: Chest radiograph dated 06/15/2023; CT examinations of the abdomen and pelvis as remote as 09/11/2022. TECHNIQUE: Multidetector volumetric CT imaging of the chest was done. Axial MIP volume rendering provided. Sagittal and coronal reformatted images were obtained. This CT examination was performed using dose optimization techniques as appropriate, variously including the following: *Automated exposure control *Adjustment of mA and/or kV according to patient size (this includes techniques or standardized protocols for targeted exams where dose is matched to indication/reason for exam; i.e. extremities or head) *Use of iterative reconstruction technique DLP: 355 mGy-cm FINDINGS: AGING BOX HAND: The lungs are symmetrically well-expanded and grossly clear. LUNGS: Imaging is significantly limited by respiratory motion. Within the anterior segment of the right upper lobe (5:114), a 2 mm noncalcified nodule is seen. Within the posterior segment of the right upper lobe (5:107), a 5 mm noncalcified nodule is seen. There is a 3.9 x 2.5 cm groundglass infiltrate within the anterior segment of the left upper lobe (5:180). There is mild biapical pleural and parenchymal scarring, right greater than left. There are bibasilar scattered foci of linear scar/subsegmental atelectasis, without associated focal airway obstruction. There is mild small airway thickening at the bases. The central airways appear patent. MEDIASTINUM: The mediastinum is normal. CORONARY ARTERY CALCIFICATION: Mild. PLEURA: There is a tiny right pleural effusion. There is no left pleural effusion. No pleural mass or thickening. AXILLA: No lymphadenopathy. UPPER ABDOMEN: There is hepatic steatosis. The gallbladder is surgically absent. Multiple bilateral parapelvic cysts are redemonstrated. There are gastric surgical sandip. OSSEOUS STRUCTURES: There are old, healed bilateral lower rib fractures. There are mild to moderate T10-L1 anterior vertebral body compression fractures. There is degenerative disc disease at T10-T11, with vacuum disc phenomenon. No acute or aggressive osseous finding is noted. CT/CT chest wo IV con IMPRESSION: 1. A 3.9 cm groundglass infiltrate is seen within the anterior segment of the left upper lobe. This is likely infectious or inflammatory in etiology. Recommend repeat CT evaluation in 1-3 months to ensure clearance. 2. 5 mm and 2 mm right upper lobe noncalcified nodules are seen on images limited by respiratory motion. According to the UPDATED 2017 Fleischner Society recommendations, the advised follow-up imaging for solid nodules < 6 mm is: LOW RISK PATIENT: No routine follow-up. HIGH RISK PATIENT: Optional CT at 12 months. 3. There is biapical pleural parenchymal scarring, and there are bibasilar scattered foci of linear scar/subsegmental atelectasis, without associated focal airway obstruction. 4. No thoracic lymphadenopathy is seen. There is a minimal right pleural effusion. 5. There are degenerative changes of the spine, including chronic mild to moderate T10-L2 compression fractures. There is no acute or aggressive osseous finding. 6. There is hepatic steatosis. Fleischner guidelines were followed.
--- NOTE | ~2023-06-13 | XR_ITS ---
EXAMINATION: XR CHEST CLINICAL INFORMATION: Question pneumonia COMPARISON: Previous chest x-rays from earlier this month TECHNIQUE: Frontal view of the chest was obtained. FINDINGS: The lung volumes are low. The cardiac and mediastinal contours are stable. There are increased central bronchovascular markings and markings at the right lung base increased from recent exams questionable for pneumonia. No pleural effusion or pneumothorax. No acute bone abnormality. XR/XR chest 1V IMPRESSION: Question perihilar and right base pneumonia.
[2023-06-13 06:21] VITALS: BP 107/64; BP 110/90; PULSE 57; PULSE 70; RESP 18; TEMP 36.4; O2SAT 97; O2SAT 98; BMI 28.4
--- NOTE | 2023-06-13 07:19 | ED_ITS ---
HPI - General Adult General Chief complaint: Weakness Stated complaint: weakness, vomiting, confusion Time Seen by Provider: 06/13/23 07:17 Source: patient and RN notes reviewed Mode of arrival: ambulatory Limitations: no limitations History of Present Illness HPI narrative: This is a 57-year-old male, with a past medical history of alcohol use independence, MAKENNA/CKD, and bariatric surgery who presents to the emergency department, accompanied by his sister, with concerns of increased weakness, lethargy since last night. Patient was recently admitted from May 31- June 07 for acute hepatic encephalopathy secondary to acute liver failure. Sister reports that he was doing well up until last night. She states that while they are eating dinner suddenly became disoriented, asking sister who she was and where he was. She states that he went to bed shortly after and woke up and has still been very confused, and had increased weakness, unable to ambulate on his own. Sister also reports that he has had multiple falls at home, they were unwitnessed and are unsure how they occurred. Sister reports that she had given him a tablet of a muscle relaxant yesterday. Patient is resting, not alert or oriented at this time. Unable to obtain information from patient given current presentation. MD complaint: Altered mental status Onset (ago): day(s) Radiation: non-radiation Relieving factors: none Exacerbating factors: none Associated symptoms: denies other symptoms Treatments prior to arrival: none Related Data Previous Rx's Medication Instructions Recorded walker #1 ea 09/21/22 ciprofloxacin HCl 250 mg tablet 250 mg PO BID #14 tabs 06/07/23 (Cipro) lactulose 20 gram/30 mL oral 20 g (30 mL) PO TID #3,000 mL 06/07/23 solution multivitamin (Daily-Sherry tablet) 1 tab PO DAILY #90 tabs 06/07/23 omeprazole 40 mg capsule,delayed 40 mg PO BID@0630,1630 8 weeks 06/07/23 release #142 caps thiamine mononitrate (vit B1) 100 100 mg PO DAILY #90 tabs 06/07/23 mg tablet walker (Ultra-Light Rollator misc) #1 ea 06/07/23 Allergies Allergy/AdvReac Type Severity Reaction Status Date / Time No Known Allergies Allergy Verified 06/01/23 16:54 Review of Systems 2 Review of Systems: Yes all other systems are reviewed and are negative Constitutional: Constitutional: Reports as per HPI Neurologic: Reports confusion Psychiatric: Psychiatric: Reports confusion [facility] Past Medical History Attestation statement: The following information was validated with the patient. Medical History (Updated 06/15/23 @ 00:03 by Serena Sarah) Liver lesion Substance use Cirrhosis Alcohol use disorder Anemia Hepatic steatosis Diarrhea resulting from infection of the bowel mucosa Anemia Chronic kidney disease Alcohol dependence Surgical History History of urologic surgery H/O varicose vein stripping S/P bariatric surgery Social History Social History (Updated 06/13/23 @ 12:02 by Sophie Tejada NP) Household Members: Family Household Members Other:: 2 Housing: Apartment Do you presently have visiting nurse or other home services: No Alcohol intake: former Comment: bed alarm does not work Patient Tobacco Use Status: Former Tobacco user Quit Date: 2022 Tobacco use type: Cigarette Smoked in Last 30 Days: No Use of substances other than those prescribed or required for medical reasons: No Substance Use Type: Crack/Cocaine and Marijuana Substance Use Frequency: Chronic Longstanding Currently Displaying Signs/Symptoms of Drug Intoxication Withdrawal: No Have you been hit, kicked, punched, or otherwise hurt by someone within the past year? If so, by whom?: No Do you feel safe in your current relationship?: No Current Relationship Is there a partner from a previous relationship who is making you feel unsafe now?: No Are you made to feel afraid or neglected: No Advance Directives: No Advance Directives Information Provided: No Advance Directives on File: No Do you have thoughts of harming others: None Do you have a plan to hurt others: No Plan Recently lost weight without trying: No How much weight loss: Not applicable Eating poorly because of decreased appetite: No Nutrition screen score: 0 Nutrition Risks: No Nutritional Risk Poor oral hygiene: No service: No Current occupational status: employed Physical Exam ED Vital Signs: Vital Signs - 24 hr 06/13/23 06:21 06/13/23 07:42 06/13/23 09:34 Temperature 97.5 F Pulse Rate 57 55 56 Respiratory Rate 18 12 12 Blood Pressure 107/64 104/61 90/56 L Pulse Oximetry 97 98 97 Oxygen Delivery Method Room Air Room Air Room Air BMI result Body Mass Index 28.4 Const General: confusion, ill appearing and lethargic Orientation/consciousness: confusion and lethargic Limitations: altered mental status [facility] Head: Yes normal to inspection, Yes normocephalic and Yes atraumatic Ears: hearing grossly normal bilaterally General nose exam: Normal external nose present Face and sinus: Yes normal facial exam Mouth: Normal oral and palatal mucosa present, oropharynx normal and moist mucous membranes Throat: Yes posterior oropharynx normal Eyes Other: Scleral icterus General: appearance normal, both eyes and all related structures Eyelids: Yes eyelids normal Pupils: Equal, round and reactive pupils present Neck Neck: Yes normal visual inspection, Yes full ROM and Yes no lymphadenopathy Lymphatic: no lymphadenopathy noted Chest Chest palpation & inspection: normal inspection of the chest Resp Effort & Inspection: normal respiratory effort and able to speak in complete sentences Auscultation: clear to auscultation bilaterally, no crackles, no rales, no rhonchi and no wheezes Cardio Rate: regular rate Rhythm: regular rhythm Heart sounds: S1 normal heart sound present and S2 normal heart sound present GI Other: Abdomen is soft, nontender, nondistended Inspection: Yes normal to inspection Skin General skin exam: jaundice Trauma: no lacerations or abrasions Wounds: no wounds Neuro General: moves all extremities and confusion Cranial nerves: Yes Equal, round and reactive pupils present Extrem Other: Right lower extremity is edematous, nonerythematous, 3+ pitting edema noted General: Yes normal to inspection Right upper extremity: normal to inspection Left upper extremity: normal to inspection Right lower extremity: normal to inspection Left lower extremity: normal to inspection Course Reevaluation(s) Reevaluation #1: Laboratories return revealing normocytic anemia with a hemoglobin and hematocrit at 8.7/24.3, better than previous. He does have an elevated BNP at 440, ammonia 162. Albumin 2.2. Patient tested negative for COVID and for flu. CT head and chest unremarkable. Patient given lactulose per rectum given patient is not alert. Time: 09:42 Reevaluation #2: Spoke to hospitalist, Dr. Moreau, transfer of care initiated. Time: 10:14 Medications Administered Generic Name Dose Route Start Last Admin Trade Name Freq PRN Reason Stop Dose Admin Acetaminophen 650 mg 06/13/23 11:49 06/13/23 21:23 Acetaminophen 325 Mg Tablet PO 650 mg Q6H PRN Administration Pain, Mild (Pain Scale 1-3) Albumin Human 100 mls @ 100 mls/hr 06/15/23 10:00 06/15/23 16:18 Kedbumin 25 % IV 06/16/23 04:59 Infused Q6H VALERIE Infusion Lactulose 30 gm 06/15/23 09:00 06/15/23 16:44 Lactulose 20 Gm/30 Ml Solution PO Not Given QID VALERIE Melatonin 6 mg 06/13/23 21:42 06/14/23 21:46 Melatonin 3 Mg Tablet PO 6 mg BEDTIME PRN Administration Insomnia Multivitamins/Vitamin C 1 tab 06/14/23 09:00 06/15/23 08:11 Multivitamin Tablet PO 1 tab DAILY VALERIE Administration Omeprazole 40 mg 06/13/23 16:30 06/15/23 15:16 Omeprazole 40 Mg Capsule.Dr PO 40 mg BID@0630,1630 VALERIE Administration Sodium Chloride 3 ml 06/13/23 16:00 06/15/23 14:33 0.9 % Sodium Chloride Flush 3 Ml Syringe IVFLUSH Not Given QSHIFT [facility] Thiamine HCl 100 mg 06/14/23 09:00 06/15/23 08:11 Thiamine Hcl 100 Mg Tablet PO 100 mg DAILY VALERIE Administration Discontinued Medications Generic Name Dose Route Start Last Admin Trade Name Freq PRN Reason Stop Dose Admin Lactulose 200 gm 06/13/23 08:40 06/13/23 11:00 Lactulose 320 Gm/480 Ml Solution KS 06/13/23 08:41 200 gm ONCE ONE Administration Lactulose 20 gm 06/13/23 13:00 06/13/23 13:59 Lactulose 20 Gm/30 Ml Solution PO 20 gm QID VALERIE Administration Lactulose 20 gm 06/13/23 15:00 06/13/23 21:22 Lactulose 20 Gm/30 Ml Solution PO 20 gm TID VALERIE Administration Lactulose 30 gm 06/14/23 09:00 06/14/23 20:15 Lactulose 20 Gm/30 Ml Solution PO 30 gm TID VALERIE Administration Lactulose 200 gm 06/15/23 16:43 06/15/23 17:22 Lactulose 320 Gm/480 Ml Solution [place] 06/15/23 16:44 200 gm ONCE ONE Administration Levofloxacin 250 mg 06/13/23 15:30 06/15/23 15:16 Levofloxacin 250 Mg Tablet PO 250 mg Q24H VALERIE Administration Ondansetron HCl 4 mg 06/13/23 11:52 06/13/23 12:07 Ondansetron Hcl 4 Mg/2 Ml Vial IVPUSH 06/13/23 11:53 4 mg ONCE ONE Administration Sodium Zirconium Cyclosilicate 5 gm 06/15/23 07:15 06/15/23 08:11 Sodium Zirconium Cyclosilicate 5 Gm Powd.Pack PO 06/15/23 07:16 5 gm ONCE ONE Administration Medical Decision Making Medical Decision Making [facility] Narrative: This is a 57-year-old male, with a past medical history of alcohol use independence, MAKENNA/CKD, and bariatric surgery who presents to the emergency department, accompanied by his sister, with concerns of increased weakness, lethargy since last night. On arrival vital signs within normal limits. Patient appears obtunded, will spontaneously open eyes with sternal rub. Sister at bedside reports that patient had a change in his mentation since last night. Differential diagnoses include hepatic encephalopathy, electrolyte derangement, CVA. Plan: Labs, CT head, CXR, Differential Diagnosis Differential Diagnoses: The differential diagnosis associated with the presentation includes See above Admission/Observation Consideration of admission/observation: Escalation of care including admission/observation considered Lab Data [facility] Lab Attestation statement: I reviewed the patient's lab results. Laboratories return revealing normocytic anemia with a hemoglobin and hematocrit at 8.7/24.3, better than previous. He does have an elevated BNP at 440, ammonia 162. Albumin 2.2. Patient tested negative for COVID and for flu. CT head and chest unremarkable. 06/15/23 16:10 06/15/23 05:03 Labs: Lab Results 06/13/23 06/13/23 06/13/23 Range/Units 08:04 08:16 09:37 WBC 5.1 (4.8-10.8) X10*3/uL RBC 2.79 L (4.60-5.80) X10*6/uL Hgb 8.7 L (14.0-18.0) g/dl Hct 24.3 L (42.0-52.0) % MCV 87.1 (80.0-98.0) fL MCH 31.2 (27.0-33.0) pg MCHC 35.8 (31.0-36.0) g/dl RDW 19.7 H (11.0-16.0) % Plt Count 164 D (160-400) X10*3/uL MPV 11.6 (9.4-12.4) fL Immature Gran % (Auto) 0.2 (0.0-0.4) % Neut % (Auto) 62.1 (45-73) % Lymph % (Auto) 19.3 L (20-40) % [place] % (Auto) 14.4 H (2-11) % Eos % (Auto) 2.4 (0-4) % Baso % (Auto) 1.6 (0-2) % Lymph # (Auto) 1.0 L (1.2-4.9) X10*3/uL [place] # (Auto) 0.7 (0.1-1.2) X10*3/uL Eos # (Auto) 0.1 (0.0-0.4) X10*3/uL Baso # (Auto) 0.1 (0.0-0.2) X10*3/uL Abs Immat Gran (auto) 0.01 (0.00-0.03) X10*3/uL Absolute Neuts (auto) 3.2 (2.0-8.3) x10*3/uL Absolute Nucleated RBC 0.000 (0.0-0.012) X10*3/uL Nucleated RBC % (auto) 0.0 (0.0-0.2) /100WBC PT 18.3 H D (11.1-13.3) SEC INR 1.5 H (0.9-1.1) APTT 46.4 H (26.0-36.8) SEC Sodium 142 (135-145) mmol/L Potassium 4.4 (3.3-5.1) mmol/L Chloride 116 H (96-108) mmol/L Carbon Dioxide 22 (22-29) mmol/L Anion Gap 8 L (12-20) BUN 16 (9-16) mg/dL Creatinine 0.92 (0.5-1.4) mg/dL Estim Creat Clear Calc 108.5 Estimated GFR > 60 Random Glucose 96 (60-115) mg/dL Calcium 7.6 L (8.4-10.2) mg/dL Magnesium 1.7 (1.6-2.6) mg/dL Total Bilirubin 2.3 H (0.0-1.0) mg/dL AST 66 H (5-37) U/L ALT 30 (0-40) U/L Alkaline Phosphatase 106 (39-117) U/L Ammonia 162 H (13-55) umol/L B-Natriuretic Peptide 440 H (<100) pg/mL Total Protein 6.6 (6.5-8.0) g/dL Albumin 2.2 L (3.5-5.0) g/dL Lipase 22 (8-78) U/L Urine Color Yellow Urine Appearance Clear Urine pH 7.5 (5.0-9.0) Ur Specific [place] 1.015 (1.005-1.025) Urine Protein Negative (Neg-Trace) mg/dL Urine Glucose (UA) Negative (Negative) mg/dL Urine Ketones Negative (Negative) mg/dL Urine Blood Negative (Negative) Urine Nitrite Negative (Negative) Ur Leukocyte Esterase Negative (Negative) Urine Opiates Screen Not Detected (Not Detect) Urine Fentanyl Screen POSITIVE H (Not Detect) Ur Barbiturates Screen POSITIVE H (Not Detect) Ur Phencyclidine Scrn Not Detected (Not Detect) Ur Amphetamines Screen Not Detected (Not Detect) U Benzodiazepines Scrn Not Detected (Not Detect) Urine Cocaine Screen Not Detected (Not Detect) U Marijuana (THC) Screen Not Detected (Not Detect) Ethyl Alcohol < 10 mg/dL COVID-19 (YURIY) Negative (Negative) COVID-19 Clin Com See Note Influenza Type A (NEW) Negative (Negative) Influenza Type B (NEW) Negative (Negative) Influenza A & B Note See Note Radiology Impression Discussion of test interpretation with radiology: I have reviewed the radiologist's reading. Radiologist Impression: EXAMINATION: CT HEAD WITHOUT CONTRAST CLINICAL INFORMATION: AMS (altered mental status) COMPARISON: None available. TECHNIQUE: Contiguous axial imaging was performed from the skull base to vertex without intravenous administration of contrast. This CT examination was performed using dose optimization techniques as appropriate, variously including the following: *Automated exposure control *Adjustment of mA and/or kV according to patient size (this includes techniques or standardized protocols for targeted exams where dose is matched to indication/reason for exam; i.e. extremities or head) *Use of iterative reconstruction technique DLP: 700 mGy-cm FINDINGS: There is no intracranial hemorrhage or evidence of acute territorial infarction. No mass effect or midline shift. No extra-axial fluid collection. Brewer-white matter differentiation is preserved. The ventricles are normal. The sulci and gyri are normal. There is mild low-attenuation in the periventricular white matter consistent with chronic small vessel ischemic disease. The visualized paranasal sinuses and mastoid air cells are well aerated and clear. CT/CT head/brain wo IV con IMPRESSION: No acute intracranial pathology. Dictated By: Kathy Reis MD EXAMINATION: XR CHEST CLINICAL INFORMATION: Altered mental status COMPARISON: Chest 06/01/2023 TECHNIQUE: AP upright portable view of the chest was obtained. 8:39 AM FINDINGS: Lung volumes are low, partially obscuring the heart borders. Elevation of the left hemidiaphragm is noted. There are bibasilar streaky opacities and upper lobe/perihilar most suggestive of atelectasis, less likely pneumonia. Peribronchial thickening is noted. No pleural effusion. No acute osseous abnormality. XR/XR chest 1V IMPRESSION: Low lung volumes with bibasilar and upper lobe atelectasis, less likely pneumonia. Dictated By: Kathy Reis MD Independent Historian Clinical information obtained from an independent historian. History obtained from or confirmed by: Other (Sister) External Record Review External record reviewed: Inpatient record Critical Care Time Critical Care Time Critical Care Time: Yes Total Critical Care Time: 35 Attestation: I have personally provided critical care time exclusive of time spent on separately billable procedures. Time includes review of lab data, radiology results, discussion with consultants, and monitoring for potential decompensation. Intervention performed as documented. Discharge Plan Discharge Clinical Impression: Acute hepatic encephalopathy Patient Disposition: Admitted As Inpatient Interventions: Admission Worksheet (ED) Last Done: 06/13/23 20:10 Discharge Date/Time: 06/13/23 20:30
[2023-06-13 07:42] VITALS: BP 104/61; PULSE 55; RESP 12; O2SAT 98
[2023-06-13 08:25] LABS: Basophils Absolute Auto 0.1 X10*3/uL (0.0-0.2); Basophils Percent Auto 1.6 % (0-2); Eosinophils Absolute Auto 0.1 X10*3/uL (0.0-0.4); Eosinophils Percent Auto 2.4 % (0-4); Hematocrit 24.3 % (42.0-52.0); Hemoglobin 8.7 g/dl (14.0-18.0); Imm Gran Abs Auto 0.01 X10*3/uL (0.00-0.03); Imm Gran Pct Auto 0.2 % (0.0-0.4); Lymphocytes Percent Auto 19.3 % (20-40); MANUAL DIFF FLAG NO; Mean Corpuscular HGB Conc 35.8 g/dl (31.0-36.0); Mean Corpuscular Hemoglobin 31.2 pg (27.0-33.0); Mean Corpuscular Volume 87.1 fL (80.0-98.0); Mean Platelet Volume 11.6 fL (9.4-12.4); Monocytes Absolute Auto 0.7 X10*3/uL (0.1-1.2); Monocytes Percent Auto 14.4 % (2-11); Neutrophils Absolute Auto 3.2 x10*3/uL (2.0-8.3); Neutrophils Percent Auto 62.1 % (45-73); Platelet Count 164 X10*3/uL (160-400); Red Blood Count 2.79 X10*6/uL (4.60-5.80); Red Cell Distribution Width 19.7 % (11.0-16.0); White Blood Count 5.1 X10*3/uL (4.8-10.8)
[2023-06-13 08:30] LABS: INTERNATIONAL NORM RATIO 1.5 (0.9-1.1); Prothrombin Time 18.3 SEC (11.1-13.3)
[2023-06-13 08:31] LABS: Ammonia 162 umol/L (13-55)
[2023-06-13 08:33] LABS: Partial Thromboplastin Time 46.4 SEC (26.0-36.8)
[2023-06-13 08:40] LABS: Alanine Aminotransferase 30 U/L (0-40); Albumin Level 2.2 g/dL (3.5-5.0); Alkaline Phosphatase 106 U/L (39-117); Anion Gap 8 (12-20); Aspartate Amino Transferase 66 U/L (5-37); Bilirubin Total 2.3 mg/dL (0.0-1.0); Blood Urea Nitrogen 16 mg/dL (9-16); Calcium 7.6 mg/dL (8.4-10.2); Carbon Dioxide 22 mmol/L (22-29); Chloride 116 mmol/L (96-108); Creatinine Clr Calc Pharmacy 108.5; Estimated Glomerular Filt Rate > 60; Ethanol < 10 mg/dL; Glucose Random 96 mg/dL (60-115); Lipase 22 U/L (8-78); Magnesium 1.7 mg/dL (1.6-2.6); Potassium 4.4 mmol/L (3.3-5.1); Sodium 142 mmol/L (135-145); Total Protein 6.6 g/dL (6.5-8.0)
[2023-06-13 08:42] LABS: COVID-19 Test Negative (Negative); IDNOW Serial# 08D9AD1C
[2023-06-13 08:45] LABS: B Type Natriuretic Peptide 440 pg/mL (<100)
[2023-06-13 08:48] LABS: IDNOW Serial# 152EDE1D
[2023-06-13 08:49] LABS: Influenza A Negative (Negative); Influenza B2 Negative (Negative)
[2023-06-13 09:34] VITALS: BP 90/56; PULSE 56; RESP 12; O2SAT 97
[2023-06-13 09:50] LABS: Appearance Urine Clear; Color Urine Yellow; Glucose Urine UA Negative (Negative); Leukocyte Esterase Urine Negative (Negative); Nitrite Urine Negative (Negative); PH 7.5 (5.0-9.0); Specific Gravity - Urine 1.015 (1.005-1.025); Urine Blood Negative (Negative); Urine Ketones Negative (Negative); Urine Protein Negative (Neg-Trace)
[2023-06-13 09:55] LABS: Amphetamine Screen Urine Not Detected (Not Detect); Barbiturates, Urine POSITIVE (Not Detect); Benzodiazepines Screen Urine Not Detected (Not Detect); Cannabinoid Screen Urine Not Detected (Not Detect); Cocaine Screen Urine Not Detected (Not Detect); Fentanyl, urine POSITIVE (Not Detect); Opiate Screen Urine Not Detected (Not Detect); Phencyclidine Screen Urine Not Detected (Not Detect)
[2023-06-13] MEDS: Lactulose 320 GM/480 ML SOLUTION 200 GM PR (11:00)
--- NOTE | 2023-06-13 11:45 | PHA.MEDREC ---
Pharmacy Consult ? Medication Reconciliation Pharmacy has completed the medication reconciliation. List from family members
--- NOTE | 2023-06-13 11:58 | P.HPHOSP_ITS ---
History of Present Illness Date of Service: 06/13/23 Chief Complaint: confusion 57-year-old man presenting to the ER with increased weakness, lethargy since yesterday. Patient was discharged on June 07 and at that time treated for acute hepatic encephalopathy secondary to acute liver failure. Patient reports compliance with medications, declines any alcohol or drug intake. Apparently the patient had become disoriented and when he woke up he was still confused and complaint of weakness and was unable to ambulate on his own. Apparently had multiple unwitnessed falls. Apparently also the sister had given him a muscle relaxant yesterday. Patient denied chest pain, nausea, vomiting, diarrhea, fever, chills, recent travel. Vital signs stable, no fever, ammonia 162. Patient was given p.r. lactulose in the ER. Plan will be to admit and treat for acute hepatic encephalopathy. Review of Systems 2 Review of Systems: Denies any recent fever chills or decrease in appetite respiratory denies any shortness of breath or cough cardiovascular denied chest pain gastrointestinal denies any dysphagia abdominal pain nausea vomiting or diarrhea genitourinary denies any dysuria frequency or hematuria musculoskeletal denies any joint pain or swelling neuropsych denies any weakness or seizures all other systems reviewed are negative [facility] Medical History (Updated 06/13/23 @ 12:01 by Sophie Tejada NP) Hepatic steatosis Diarrhea resulting from infection of the bowel mucosa Anemia Chronic kidney disease Alcohol dependence Surgical History History of urologic surgery H/O varicose vein stripping S/P bariatric surgery Social History (Updated 06/13/23 @ 12:02 by Sophie Tejada NP) Household Members: Children Household Members Other:: 2 Housing: Apartment Do you presently have visiting nurse or other home services: No Alcohol intake: former Patient Tobacco Use Status: Former Tobacco user Quit Date: 2022 Tobacco use type: Cigarette Smoked in Last 30 Days: No Use of substances other than those prescribed or required for medical reasons: Yes Substance Use Type: Crack/Cocaine and Marijuana Substance Use Frequency: Chronic Longstanding Advance Directives: No Advance Directives Information Provided: No service: No Current occupational status: employed Meds Allergies Allergy/AdvReac Type Severity Reaction Status Date / Time No Known Allergies Allergy Verified 06/01/23 16:54 Active Medications: Current Medications Acetaminophen (Acetaminophen 325 Mg Tablet) 650 mg PO Q6H PRN PRN Reason: Pain, Mild (Pain Scale 1-3) Ondansetron HCl (Ondansetron Hcl 4 Mg/2 Ml Vial) 4 mg IVPUSH Q8H PRN PRN Reason: Nausea and Vomiting Sodium Chloride (0.9 % Sodium Chloride Flush 3 Ml Syringe) 3 ml IVFLUSH QSHIFT [facility] Physical Exam 2 Vital Signs and Narrative: Vital Signs: Last Vital Signs Temp 97.5 F 06/13/23 06:21 Pulse 56 06/13/23 09:34 Resp 12 06/13/23 09:34 BP 90/56 L 06/13/23 09:34 Pulse Ox 97 06/13/23 09:34 O2 Del Method Room Air 06/13/23 09:34 BMI result Body Mass Index 28.4 Results Labs 06/13/23 08:16 06/13/23 08:16 Labs: Laboratory Results - last 24 hr 06/13/23 06/13/23 06/13/23 08:04 08:16 09:37 MCV 87.1 MCH 31.2 MCHC 35.8 RDW 19.7 H Plt Count 164 D MPV 11.6 Immature Gran % (Auto) 0.2 Neut % (Auto) 62.1 Lymph % (Auto) 19.3 L [place] % (Auto) 14.4 H Eos % (Auto) 2.4 Baso % (Auto) 1.6 Lymph # (Auto) 1.0 L [place] # (Auto) 0.7 Eos # (Auto) 0.1 Baso # (Auto) 0.1 Abs Immat Gran (auto) 0.01 Absolute Neuts (auto) 3.2 Absolute Nucleated RBC 0.000 Nucleated RBC % (auto) 0.0 PT 18.3 H D INR 1.5 H APTT 46.4 H Anion Gap 8 L Estim Creat Clear Calc 108.5 Estimated GFR > 60 Random Glucose 96 Calcium 7.6 L Magnesium 1.7 Total Bilirubin 2.3 H AST 66 H ALT 30 Alkaline Phosphatase 106 Ammonia 162 H B-Natriuretic Peptide 440 H Total Protein 6.6 Albumin 2.2 L Lipase 22 Urine Color Yellow Urine Appearance Clear Urine pH 7.5 Ur Specific [place] 1.015 Urine Protein Negative Urine Glucose (UA) Negative Urine Ketones Negative Urine Blood Negative Urine Nitrite Negative Ur Leukocyte Esterase Negative Urine Opiates Screen Not Detected Urine Fentanyl Screen POSITIVE H Ur Barbiturates Screen POSITIVE H Ur Phencyclidine Scrn Not Detected Ur Amphetamines Screen Not Detected U Benzodiazepines Scrn Not Detected Urine Cocaine Screen Not Detected U Marijuana (THC) Screen Not Detected Ethyl Alcohol < 10 COVID-19 (YURIY) Negative COVID-19 Clin Com See Note Influenza Type A (NEW) Negative Influenza Type B (NEW) Negative Influenza A & B Note See Note Imaging Radiologist's Impressions: Impressions Chest X-Ray 06/13/23 08:40 IMPRESSION: Low lung volumes with bibasilar and upper lobe atelectasis, less likely pneumonia. Head CT 06/13/23 08:55 IMPRESSION: No acute intracranial pathology. Assessment and Plan (1) Acute hepatic encephalopathy: Status: Acute Plan 57 yo male with history of alcohol abuse and dependence who presents with hepatic encephalopathy Acute hepatic encephalopathy secondary elevated ammonia level Continue lactulose 20 mg t.i.d. Abdominal ultrasound for ascites check Follow ammonia encourage OOB to chair Alcohol dependence, at high risk for withdrawal Continue phenobarbital protocol MVI/Thiamine, PPI Coagulopathy secondary to liver disease No signs of bleeding Thrombocytopenia Secondary to liver disease Hepatic steatosis No cirrhosis on abdominal CT DVT prophylaxis pneumatic compression boots Full code Patient will require at least 48 hours of inpatient admission for treatment of acute hepatic encephalopathy requiring scheduled lactulose and close monitoring of mental status Quality Stroke Does the patient have a stroke diagnosis?: No VTE Prior VTE?: No VTE Risk Level:: Medical - moderate - high VTE Device Contraindication: N/A - Device Ordered VTE Drug Contraindication: Treatment Not Indicated
[2023-06-13] MEDS: ondansetron HCL 4 MG/2 ML VIAL IVPUSH (12:07)
--- NOTE | 2023-06-13 13:06 | PC.NURSE ---
pt is much more alert and awake than arrival early this morning. He is sitting up and talking a little with family. Repeat nursing swallow screen done and pt given a PASS.
[2023-06-13 13:13] VITALS: BP 108/61; PULSE 62; RESP 16; O2SAT 98
[2023-06-13] MEDS: Lactulose 20 GM/30 ML SOLUTION PO ×2 (13:59→21:22)
--- NOTE | 2023-06-13 14:27 | PC.NURSE ---
Pt transferred to OV 2 without incident. [place] cath patent draining clear yellow urine. Awaiting inpatient bed assignment.
[2023-06-13] MEDS: levoFLOXacin 250 MG TABLET PO (16:08)
[2023-06-13] MEDS: 0.9 % Sodium Chloride Flush 3 ML SYRINGE IVFLUSH ×2 (16:08→21:23)
[2023-06-13 17:27] VITALS: BP 100/64; PULSE 64; RESP 20; TEMP 36.6; O2SAT 99
--- NOTE | 2023-06-13 19:15 | PC.NURSE ---
per prev shift pt has not had bm since lactulose doses- notified heavy equipment operating engineer mecca cardenas- states for goal of 3 bm/day.
--- NOTE | 2023-06-13 20:17 | PC.NURSE ---
report entered into computer, tony caldwell upstairs confirmd receipt. this rn messaged supervisor in charge- no transporters on, inquired about who will bring pt up to floor.
--- NOTE | 2023-06-13 20:21 | PC.NURSE ---
repositioned in bed. voided in bed jones. jax cream applied to scrotum as minor skin breakdown noted. new [place] cath on.
[2023-06-13] MEDS: Acetaminophen 325 MG TABLET 650 MG PO (21:23)
[2023-06-13 21:32] VITALS: BMI 28.4
[2023-06-13] MEDS: Melatonin 3 MG TABLET 6 MG PO (22:40)
[2023-06-13 23:26] VITALS: BP 108/54; PULSE 70; RESP 18; TEMP 37; O2SAT 97
[2023-06-14 03:24] VITALS: BP 109/60; PULSE 67; RESP 18; TEMP 36.8; O2SAT 97
[2023-06-14] MEDS: Omeprazole 40 MG CAPSULE.DR PO ×2 (05:43→15:41)
[2023-06-14 06:29] LABS: MANUAL DIFF FLAG NO
[2023-06-14 06:33] LABS: Basophils Absolute Auto 0.1 X10*3/uL (0.0-0.2); Basophils Percent Auto 1.7 % (0-2); Eosinophils Absolute Auto 0.1 X10*3/uL (0.0-0.4); Hematocrit 22.6 % (42.0-52.0); Hemoglobin 8.2 g/dl (14.0-18.0); Imm Gran Abs Auto 0.02 X10*3/uL (0.00-0.03); Imm Gran Pct Auto 0.3 % (0.0-0.4); Lymphocytes Percent Auto 30.4 % (20-40); Mean Corpuscular HGB Conc 36.3 g/dl (31.0-36.0); Mean Corpuscular Hemoglobin 30.9 pg (27.0-33.0); Mean Corpuscular Volume 85.3 fL (80.0-98.0); Mean Platelet Volume 11.4 fL (9.4-12.4); Monocytes Absolute Auto 0.7 X10*3/uL (0.1-1.2); Monocytes Percent Auto 10.8 % (2-11); Neutrophils Absolute Auto 3.5 x10*3/uL (2.0-8.3); Neutrophils Percent Auto 54.8 % (45-73); Platelet Count 161 X10*3/uL (160-400); Red Blood Count 2.65 X10*6/uL (4.60-5.80); Red Cell Distribution Width 19.6 % (11.0-16.0); White Blood Count 6.5 X10*3/uL (4.8-10.8)
[2023-06-14 06:45] LABS: Ammonia 121 umol/L (13-55)
[2023-06-14 06:48] LABS: Anion Gap 10 (12-20); Blood Urea Nitrogen 14 mg/dL (9-16); Calcium 7.6 mg/dL (8.4-10.2); Carbon Dioxide 20 mmol/L (22-29); Chloride 116 mmol/L (96-108); Creatinine Clr Calc Pharmacy 112.1; Estimated Glomerular Filt Rate > 60; Glucose Random 77 mg/dL (60-115); Magnesium 1.6 mg/dL (1.6-2.6); Potassium 4.9 mmol/L (3.3-5.1); Sodium 141 mmol/L (135-145)
[2023-06-14 07:19] VITALS: BP 116/71; PULSE 75; RESP 16; TEMP 36.6; O2SAT 99
[2023-06-14] MEDS: Thiamine HCL 100 MG TABLET PO (08:30)
[2023-06-14] MEDS: Multivitamin TABLET 1 TAB PO (08:30)
[2023-06-14] MEDS: Lactulose 20 GM/30 ML SOLUTION 30 GM PO ×3 (08:30→20:15)
[2023-06-14] MEDS: 0.9 % Sodium Chloride Flush 3 ML SYRINGE IVFLUSH ×3 (08:30→23:16)
--- NOTE | 2023-06-14 11:02 | P.PNIM_ITS ---
Subjective Subjective Date of Service: 06/14/23 Interval History: follow up for hepatic enecphalopathy no overnight events no abdominal pain Review of Systems Review of Systems: Yes all other systems are reviewed and are negative Constitutional Constitutional: Denies chills and Denies fever(s) Cardiovascular Cardiovascular: Denies chest pain, Denies palpitations and Denies dyspnea Respiratory Respiratory: Denies cough and Denies dyspnea Gastrointestinal Gastrointestinal: Denies abdominal pain, Denies nausea and Denies vomiting Endocrine Endocrine: Denies palpitations Physical Exam 2 Vital Signs: Vital Signs: Last Vital Signs Temp 97.9 F 06/14/23 07:19 Pulse 75 06/14/23 07:19 Resp 16 06/14/23 07:19 BP 116/71 06/14/23 07:19 Pulse Ox 99 06/14/23 07:19 O2 Del Method Room Air 06/14/23 07:19 BMI result Body Mass Index 28.4 Appearing in no acute distress lung sounds are clear to auscultation heart regular rate rhythm, clear S1, S2 positive bowel sounds, abdomen is soft, nontender neuro patient is alert x3, no focal deficits Objective Data Active Medications Acetaminophen (Acetaminophen 325 Mg Tablet) 650 mg PO Q6H PRN PRN Reason: Pain, Mild (Pain Scale 1-3) Last Admin: 06/13/23 21:23 Dose: 650 mg Documented By: KEVIN Lactulose (Lactulose 20 Gm/30 Ml Solution) 30 gm PO TID [facility] Last Admin: 06/14/23 08:30 Dose: 30 gm Documented By: MICHAELA Levofloxacin (Levofloxacin 250 Mg Tablet) 250 mg PO Q24H [facility] Last Admin: 06/13/23 16:08 Dose: 250 mg Documented By: JOSÉ Melatonin (Melatonin 3 Mg Tablet) 6 mg PO BEDTIME PRN PRN Reason: Insomnia Last Admin: 06/13/23 22:40 Dose: 6 mg Documented By: KEVIN Multivitamins/Vitamin C (Multivitamin Tablet) 1 tab PO DAILY [facility] Last Admin: 06/14/23 08:30 Dose: 1 tab Documented By: MICHAELA Omeprazole (Omeprazole 40 Mg Mikayla.) 40 mg PO BID@0630,1630 [facility] Last Admin: 06/14/23 05:43 Dose: 40 mg Documented By: KEVIN Ondansetron HCl (Ondansetron Hcl 4 Mg/2 Ml Vial) 4 mg IVPUSH Q8H PRN PRN Reason: Nausea and Vomiting Sodium Chloride (0.9 % Sodium Chloride Flush 3 Ml Syringe) 3 ml IVFLUSH QSHIFT [facility] Last Admin: 06/14/23 08:30 Dose: 3 ml Documented By: MICHAELA Thiamine HCl (Thiamine Hcl 100 Mg Tablet) 100 mg PO DAILY [facility] Last Admin: 06/14/23 08:30 Dose: 100 mg Documented By: MICHAELA Labs 06/14/23 06:10 06/14/23 06:10 Labs: Laboratory Results - last 24 hr 06/14/23 06:10 MCV 85.3 MCH 30.9 MCHC 36.3 H RDW 19.6 H Plt Count 161 MPV 11.4 Immature Gran % (Auto) 0.3 Neut % (Auto) 54.8 Lymph % (Auto) 30.4 [place] % (Auto) 10.8 Eos % (Auto) 2.0 Baso % (Auto) 1.7 Lymph # (Auto) 2.0 [place] # (Auto) 0.7 Eos # (Auto) 0.1 Baso # (Auto) 0.1 Abs Immat Gran (auto) 0.02 Absolute Neuts (auto) 3.5 Absolute Nucleated RBC 0.000 Nucleated RBC % (auto) 0.0 Anion Gap 10 L Estim Creat Clear Calc 112.1 Estimated GFR > 60 Random Glucose 77 Calcium 7.6 L Magnesium 1.6 Ammonia 121 H Microbiology Microbiology Results: Microbiology 06/13/23 08:49 Blood Culture - Preliminary Blood - Venous No growth after 24 hours. 06/13/23 08:17 Blood Culture - Preliminary Blood - Venous No growth after 24 hours. Assessment and Plan (1) Acute hepatic encephalopathy: Status: Acute Plan 57 yo male with history of alcohol abuse and dependence who presents with hepatic encephalopathy Acute hepatic encephalopathy secondary elevated ammonia level Ammonia 121 today Lactulose increased to 30 mg t.i.d. titrate to 2-3 BM daily Abdominal ultrasound for ascites check showing trace fluid encourage OOB to chair Alcohol dependence, at high risk for withdrawal reports no alcohol intake Continue phenobarbital protocol MVI/Thiamine, PPI Coagulopathy secondary to liver disease No signs of bleeding Thrombocytopenia Secondary to liver disease Hepatic steatosis No cirrhosis on abdominal CT DVT prophylaxis pneumatic compression boots Attending Dr. Navarro Full code Patient will require at least 48 hours of inpatient admission for treatment of acute hepatic encephalopathy requiring scheduled lactulose and close monitoring of mental status Quality Stroke Does the patient have a stroke diagnosis?: No VTE Prior VTE?: No VTE Risk Level:: Medical - moderate - high VTE Device Contraindication: N/A - Device Ordered VTE Drug Contraindication: Treatment Not Indicated
--- NOTE | 2023-06-14 15:02 | MHC.CM.PN ---
pt lives with sister had no previous services had no pcp has an appt with a pcp beginning of june hcp on file has a ride home gave sister gss phone numbver for servies
[2023-06-14 15:09] VITALS: BP 101/60; PULSE 76; RESP 20; TEMP 36.7; O2SAT 97
[2023-06-14] MEDS: levoFLOXacin 250 MG TABLET PO (15:41)
[2023-06-14 15:48] VITALS: PULSE 82; O2SAT 98
[2023-06-14 20:00] VITALS: BP 118/60; PULSE 74; RESP 18; TEMP 36.3; O2SAT 98
[2023-06-14] MEDS: Melatonin 3 MG TABLET 6 MG PO (21:46)
[2023-06-15 02:47] VITALS: BP 115/56; PULSE 80; RESP 18; TEMP 36.2; O2SAT 99
[2023-06-15 05:52] LABS: Anion Gap 8 (12-20); Blood Urea Nitrogen 14 mg/dL (9-16); Calcium 7.5 mg/dL (8.4-10.2); Carbon Dioxide 19 mmol/L (22-29); Chloride 113 mmol/L (96-108); Creatinine Clr Calc Pharmacy 93.2; Estimated Glomerular Filt Rate > 60; Glucose Random 78 mg/dL (60-115); Potassium 5.3 mmol/L (3.3-5.1); Sodium 135 mmol/L (135-145)
[2023-06-15 05:53] LABS: Alanine Aminotransferase 27 U/L (0-40); Albumin Level 1.9 g/dL (3.5-5.0); Alkaline Phosphatase 105 U/L (39-117); Aspartate Amino Transferase 57 U/L (5-37); Bilirubin Direct 0.8 mg/dL (0.0-0.5); Total Protein 6.2 g/dL (6.5-8.0)
[2023-06-15] MEDS: Omeprazole 40 MG CAPSULE.DR PO ×2 (06:14→15:16)
[2023-06-15 07:36] VITALS: BP 115/70; PULSE 72; RESP 14; TEMP 36.6; O2SAT 99
[2023-06-15 07:49] LABS: Ammonia 178 umol/L (13-55)
--- NOTE | 2023-06-15 07:58 | P.CDIM_ITS ---
PROVIDER RESPONSE TEXT: To clarify, the appropriate diagnosis supported by the clinical indicators: Other (explain): no diagnosed ckd GFR >60 QUERY TEXT: PHYSICIAN'S DOCUMENTATION REQUEST Date of Query: 06/14/2023 08:43 AM EST Patient Name: MARICRUZ ALLEN Admit Date: 06/13/2023 Dear Sophie Tejada, A review of the medical record indicates additional documentation may be needed. Please review below and update the documentation accordingly. Clinical Indicators: PMH: Chronic kidney disease ED: PMH MAKENNA/CKD CR: 0.89 GFR: >60 Please clarify which of the following accurately represents the patient's renal stage if known: CKD, please provide stage Other Other (explain) Clinically unable to determine (explain) Thank you, Lula Mason, CCS, CDIS Use of terms such as suspected, likely, concern for, or probable (associated with a specific diagnosi s that is being evaluated, monitored, or treated as if it exists) are acceptable and can be coded in the inpatient se tting, when documented at the time of discharge. Please use your independent medical judgment in providing your response. THIS QUERY IS PART OF THE PERMANENT MEDICAL RECORD
[2023-06-15] MEDS: Thiamine HCL 100 MG TABLET PO (08:11)
[2023-06-15] MEDS: Lactulose 20 GM/30 ML SOLUTION 30 GM PO ×3 (08:11→21:00)
[2023-06-15] MEDS: Multivitamin TABLET 1 TAB PO (08:11)
[2023-06-15] MEDS: Sodium Zirconium Cyclosilicate 5 GM POWD.PACK PO (08:11)
--- NOTE | 2023-06-15 09:11 | P.PNIM_ITS ---
Subjective Subjective Date of Service: 06/15/23 Interval History: follow up for hepatic enecphalopathy no overnight events no abdominal pain Review of Systems Review of Systems: Yes all other systems are reviewed and are negative Constitutional Constitutional: Denies chills and Denies fever(s) Cardiovascular Cardiovascular: Denies chest pain, Denies palpitations and Denies dyspnea Respiratory Respiratory: Denies cough and Denies dyspnea Gastrointestinal Gastrointestinal: Denies abdominal pain, Denies nausea and Denies vomiting Endocrine Endocrine: Denies palpitations Physical Exam 2 Vital Signs: Vital Signs: Last Vital Signs Temp 97.8 F 06/15/23 07:36 Pulse 72 06/15/23 07:36 Resp 14 06/15/23 07:36 BP 115/70 06/15/23 07:36 Pulse Ox 99 06/15/23 07:36 O2 Del Method Room Air 06/15/23 07:36 BMI result Body Mass Index 28.4 Appearing in no acute distress lung sounds are clear to auscultation heart regular rate rhythm, clear S1, S2 positive bowel sounds, abdomen is soft, nontender neuro patient is alert x3, no focal deficits Objective Data Active Medications Acetaminophen (Acetaminophen 325 Mg Tablet) 650 mg PO Q6H PRN PRN Reason: Pain, Mild (Pain Scale 1-3) Last Admin: 06/13/23 21:23 Dose: 650 mg Documented By: COTEMA Lactulose (Lactulose 20 Gm/30 Ml Solution) 30 gm PO QID [facility] Last Admin: 06/15/23 08:11 Dose: 30 gm Documented By: JEFFERSON Levofloxacin (Levofloxacin 250 Mg Tablet) 250 mg PO Q24H [facility] Last Admin: 06/14/23 15:41 Dose: 250 mg Documented By: MICHAELA Melatonin (Melatonin 3 Mg Tablet) 6 mg PO BEDTIME PRN PRN Reason: Insomnia Last Admin: 06/14/23 21:46 Dose: 6 mg Documented By: EDWARDO Multivitamins/Vitamin C (Multivitamin Tablet) 1 tab PO DAILY [facility] Last Admin: 06/15/23 08:11 Dose: 1 tab Documented By: JEFFERSON Omeprazole (Omeprazole 40 Mg Mikayla.) 40 mg PO BID@0630,1630 [facility] Last Admin: 06/15/23 06:14 Dose: 40 mg Documented By: HO.CHOIP Ondansetron HCl (Ondansetron Hcl 4 Mg/2 Ml Vial) 4 mg IVPUSH Q8H PRN PRN Reason: Nausea and Vomiting Sodium Chloride (0.9 % Sodium Chloride Flush 3 Ml Syringe) 3 ml IVFLUSH QSHIFT [facility] Last Admin: 06/15/23 08:04 Dose: Not Given Documented By: JEFFERSON Non-Admin Reason: See Note Thiamine HCl (Thiamine Hcl 100 Mg Tablet) 100 mg PO DAILY [facility] Last Admin: 06/15/23 08:11 Dose: 100 mg Documented By: JEFFERSON Labs 06/14/23 06:10 06/15/23 05:03 Labs: Laboratory Results - last 24 hr 06/15/23 06/15/23 05:03 07:37 Hold Purple Top SEE NOTE Anion Gap 8 L Estim Creat Clear Calc 93.2 Estimated GFR > 60 Random Glucose 78 Calcium 7.5 L Total Bilirubin 2.0 H Direct Bilirubin 0.8 H AST 57 H ALT 27 Alkaline Phosphatase 105 Ammonia 178 H Total Protein 6.2 L Albumin 1.9 L Microbiology Microbiology Results: Microbiology 06/13/23 08:49 Blood Culture - Preliminary Blood - Venous No growth after 24 hours. 06/13/23 08:17 Blood Culture - Preliminary Blood - Venous No growth after 24 hours. Assessment and Plan (1) Acute hepatic encephalopathy: Status: Acute Plan 57 yo male with history of alcohol abuse and dependence who presents with hepatic encephalopathy Acute hepatic encephalopathy secondary elevated ammonia level Ammonia trending up 178 today having at least 2 BMs a day Lactulose increased to 30 mg QID. titrate to 2-3 BM daily Abdominal ultrasound for ascites check showing trace fluid LFT at baseline HH stable encourage OOB to chair Alcohol dependence hx reports no alcohol intake MVI/Thiamine, PPI Coagulopathy secondary to liver disease No signs of bleeding Thrombocytopenia Secondary to liver disease Hepatic steatosis No cirrhosis on abdominal CT hypoalbumenia secondary to liver disease, malnutrition replete DVT prophylaxis pneumatic compression boots Attending Dr. Navarro Full code continue inpatient admission for treatment of acute hepatic encephalopathy requiring scheduled lactulose and close monitoring of mental status Quality Stroke Does the patient have a stroke diagnosis?: No VTE Prior VTE?: No VTE Risk Level:: Medical - moderate - high VTE Device Contraindication: N/A - Device Ordered VTE Drug Contraindication: Treatment Not Indicated
[2023-06-15] MEDS: Albumin Human 25 % 100 ML IV ×3 (10:04→21:03)
--- NOTE | 2023-06-15 14:22 | HO.WOUND ---
Wound Consult: Initial 57yr old M? admitted to [facility] on 06/13/23 - See progress notes and H&P for detailed history.? Wound consult placed for Scrotal wound POA.? Patient was mildly interactive with his environment - his sister who is his aretaker at home was at bedside and reported patients baseline level of mixed incontinence and poor hygiene. She was requesting a Leiva Cath placement for wound healing to the base of the scrotum - this is not advisable. Patient and sister were educated on the risk associated with Leiva Cath and the partial thickness wound did not meet criteria for F/C placement - she demonstrates understanding. ? Penis Shaft and Scrotum Etiology: ?MASD-IAD (Moisture Associated Skin Damage - Incontinence Associated Dermatitis) ?Present on Admission Wound Bed: red pink hyperpigmented tissue remains blanchable - areas of erythema and scattered partial thickness tissue loss - clean wound beds noted. Drainage / Odor: None observed Edges: ? irregular consistent with moisture Yohana wound: pink red blanchable erythema ? No Induration, Fluctuance or Warmth noted Pain: reports discomfort Goals of Treatment: ? Triad to protect from friction and moisture and a sling created with interdry to elevate the scrotum from between the legs. Recommendations: 1. Turn and Reposition every 2 hours and as needed for patient comfort.? Use pillows or wedges to support off loading positions. 2. Off Load all bony prominences with use of pillows and heel boots if needed.? Apply Preventative foams where needed. ? 3. Monitor for incontinence and moisture control, use barrier creams when needed for prevention and treatment. 4. Provide adequate and supplemental nutrition.? 5. Order or Continue low air loss mattress. 6. Penis and Scrotum -Cleanse with PH balance spray or wipes, pat dry. ?Apply thin layer of Triad to wound bed - only pat and dab no scrub and rub when soiling occurs. Reapply thin layer PRN after each episode of incontinence. Weave sheet of Interdry between thighs and under scrotum to create a sling with wick moisture aware from scrotum. Re-consult wound care Nurse for wound deterioration or wound changes.
[2023-06-15 14:58] VITALS: BP 100/61; PULSE 71; RESP 16; TEMP 36.7; O2SAT 95
[2023-06-15] MEDS: levoFLOXacin 250 MG TABLET PO (15:16)
--- NOTE | 2023-06-15 15:36 | MHC.CM.PN ---
pt not ready for dc dc plan re,anis home with family ,famil;y to transport
[2023-06-15 16:22] LABS: Hematocrit 21.4 % (42.0-52.0); Hemoglobin 7.4 g/dl (14.0-18.0); Mean Corpuscular HGB Conc 34.6 g/dl (31.0-36.0); Mean Corpuscular Hemoglobin 30.1 pg (27.0-33.0); Mean Platelet Volume 10.6 fL (9.4-12.4); Platelet Count 141 X10*3/uL (160-400); Red Blood Count 2.46 X10*6/uL (4.60-5.80); Red Cell Distribution Width 19.1 % (11.0-16.0); White Blood Count 4.7 X10*3/uL (4.8-10.8)
[2023-06-15 16:22] LABS: VBG HCO3 19 mmol/L (22-26); VBG pCO2 26 mmHg; VBG pH 7.48 (7.32-7.43); VBG pO2 173 mmHg
[2023-06-15 16:24] LABS: Ammonia 208 umol/L (13-55)
[2023-06-15 16:27] LABS: Venous Blood Gas Refer to POC result
[2023-06-15] MEDS: Lactulose 320 GM/480 ML SOLUTION 200 GM PR ×2 (17:22→23:06)
--- NOTE | 2023-06-15 18:40 | PC.NURSE ---
informed MD of pt's status change this evening. md informed of lab results. meds administered as ordered w/ + effect. family member at bedside assisting with care.
[2023-06-15 19:10] VITALS: BP 111/61; PULSE 69; RESP 16; TEMP 36.3; O2SAT 99
[2023-06-15 19:30] LABS: INTERNATIONAL NORM RATIO 1.6 (0.9-1.1); Prothrombin Time 19.7 SEC (11.1-13.3)
[2023-06-15] MEDS: 0.9 % Sodium Chloride Flush 3 ML SYRINGE IVFLUSH (21:06)
[2023-06-16] MEDS: Lactulose 320 GM/480 ML SOLUTION 200 GM PR ×3 (02:34→10:50)
[2023-06-16] MEDS: Albumin Human 25 % 100 ML IV (03:46)
[2023-06-16 03:50] VITALS: BP 110/59; PULSE 63; RESP 18; TEMP 36.1; O2SAT 100
[2023-06-16 05:48] LABS: Hematocrit 23.9 % (42.0-52.0); Hemoglobin 8.2 g/dl (14.0-18.0); Mean Corpuscular HGB Conc 34.3 g/dl (31.0-36.0); Mean Corpuscular Hemoglobin 30.7 pg (27.0-33.0); Mean Corpuscular Volume 89.5 fL (80.0-98.0); Mean Platelet Volume 10.9 fL (9.4-12.4); Platelet Count 140 X10*3/uL (160-400); Red Blood Count 2.67 X10*6/uL (4.60-5.80); White Blood Count 4.9 X10*3/uL (4.8-10.8)
[2023-06-16 05:54] LABS: Ammonia 88 umol/L (13-55)
[2023-06-16 06:03] LABS: Alanine Aminotransferase 22 U/L (0-40); Albumin Level 2.9 g/dL (3.5-5.0); Alkaline Phosphatase 97 U/L (39-117); Anion Gap 9 (12-20); Aspartate Amino Transferase 54 U/L (5-37); Bilirubin Direct 0.7 mg/dL (0.0-0.5); Bilirubin Total 2.1 mg/dL (0.0-1.0); Blood Urea Nitrogen 14 mg/dL (9-16); Calcium 8.2 mg/dL (8.4-10.2); Carbon Dioxide 18 mmol/L (22-29); Chloride 114 mmol/L (96-108); Creatinine Clr Calc Pharmacy 93.2; Estimated Glomerular Filt Rate > 60; Glucose Random 103 mg/dL (60-115); INTERNATIONAL NORM RATIO 1.6 (0.9-1.1); Potassium 4.7 mmol/L (3.3-5.1); Prothrombin Time 19.5 SEC (11.1-13.3); Sodium 136 mmol/L (135-145); Total Protein 6.7 g/dL (6.5-8.0)
[2023-06-16] MEDS: Omeprazole 40 MG CAPSULE.DR PO ×2 (06:31→16:15)
--- NOTE | 2023-06-16 07:08 | PC.NURSE ---
at 0600 bladder scan 337 mL, so, straight cat her, but very cloudy milky urine blocked the catheter, nothing came out. MD aware. pass along to day nurse. will cont. to monitor.
[2023-06-16 07:14] VITALS: BP 124/74; PULSE 67; RESP 12; TEMP 36.6; O2SAT 97
--- NOTE | 2023-06-16 08:36 | PM.GICN ---
History of Present Illness Data of Consult Service Date: 06/16/23 Requesting physician: Mckenzie Anne Primary Care Provider: Nonstaff Physician HPI Reason for consult: Hepatic encephalopathy This is a 57-year-old gentleman with past medical history of polysubstance use disorder including alcohol and cocaine, who was brought to the hospital by his sister for confusion and dizziness. Today is day 3 of hospitalisation. Pt was recently admitted to the hospital earlier this month for anemia. This time, sister mentions that for the past 2-3 days pt has not been acting like himself. Could not orient himself and kept calling her his mom. She also noticed that he was not passing BMs as frequently as before. No report of fevers, chills, cough, runny nose, breathing difficulty, painful urination. Infectious work up so far negative. US abd with only trace amount of ascites. No clinical evidence of bleeding, BMs are brown/mustard colored. Pt has been on lactulose since 06/14 which was increased to 4 times a day yesterday. He also received a lactulose enema last evening. On bedside assessment, remains lethargic and confused. History at bedside. Last alcohol drink was on May 30. Review of Systems Review of Systems: Yes Unobtainable due to mental status PMFSH Past Medical History Medical History (Updated 06/16/23 @ 16:02 by Brenna Mena MD) Cirrhosis Alcohol use disorder Liver lesion Substance use Anemia Hepatic steatosis Diarrhea resulting from infection of the bowel mucosa Anemia Chronic kidney disease Alcohol dependence Surgical History Surgical History History of urologic surgery H/O varicose vein stripping S/P bariatric surgery Social History Social History (Updated 06/13/23 @ 12:02 by Sophie Tejada NP) Household Members: Family Household Members Other:: 2 Housing: Apartment Do you presently have visiting nurse or other home services: No Alcohol intake: former Comment: bed alarm does not work Patient Tobacco Use Status: Former Tobacco user Quit Date: 2022 Tobacco use type: Cigarette Substance Use Type: Crack/Cocaine and Marijuana service: No Current occupational status: employed Meds Allergies Allergy/AdvReac Type Severity Reaction Status Date / Time No Known Allergies Allergy Verified 06/01/23 16:54 Active Medications: Current Medications Acetaminophen (Acetaminophen 325 Mg Tablet) 650 mg PO Q6H PRN PRN Reason: Pain, Mild (Pain Scale 1-3) Last Admin: 06/13/23 21:23 Dose: 650 mg Lactulose (Lactulose 20 Gm/30 Ml Solution) 30 gm PO QID [facility] Last Admin: 06/15/23 21:00 Dose: 30 gm Lactulose (Lactulose 320 Gm/480 Ml Solution) 200 gm NM Q4H [facility] Last Admin: 06/16/23 06:31 Dose: 200 gm Melatonin (Melatonin 3 Mg Tablet) 6 mg PO BEDTIME PRN PRN Reason: Insomnia Last Admin: 06/14/23 21:46 Dose: 6 mg Multivitamins/Vitamin C (Multivitamin Tablet) 1 tab PO DAILY [facility] Last Admin: 06/15/23 08:11 Dose: 1 tab Omeprazole (Omeprazole 40 Mg Capsule.Dr) 40 mg PO BID@0630,1630 [facility] Last Admin: 06/16/23 06:31 Dose: 40 mg Ondansetron HCl (Ondansetron Hcl 4 Mg/2 Ml Vial) 4 mg IVPUSH Q8H PRN PRN Reason: Nausea and Vomiting Sodium Chloride (0.9 % Sodium Chloride Flush 3 Ml Syringe) 3 ml IVFLUSH QSHIFT [facility] Last Admin: 06/15/23 21:06 Dose: 3 ml Thiamine HCl (Thiamine Hcl 100 Mg Tablet) 100 mg PO DAILY [facility] Last Admin: 06/15/23 08:11 Dose: 100 mg Physical Exam Vital Signs: Vital Signs: Last Vital Signs Temp 97.8 F 06/16/23 07:14 Pulse 67 06/16/23 07:14 Resp 12 06/16/23 07:14 BP 124/74 06/16/23 07:14 Pulse Ox 97 06/16/23 07:14 O2 Del Method Room Air 06/16/23 07:14 BMI result Body Mass Index 28.4 Grossly jaundiced, ill-appearing Scleral icterus No cervical lymphadenopathy Abdomen soft, nontender, moderately distended, no shifting dullness No peripheral edema asterixis +3 Results Labs 06/16/23 05:41 06/16/23 05:41 Labs: Short CBC 06/15/23 06/16/23 Range/Units 16:10 05:41 WBC 4.7 L 4.9 (4.8-10.8) X10*3/uL Hgb 7.4 L 8.2 L (14.0-18.0) g/dl Hct 21.4 L 23.9 L (42.0-52.0) % Plt Count 141 L 140 L (160-400) X10*3/uL BMP 06/16/23 05:41 Sodium 136 Potassium 4.7 Chloride 114 H Carbon Dioxide 18 L BUN 14 Creatinine 1.07 Calcium 8.2 L D Liver Function 06/16/23 Range/Units 05:41 Total Bilirubin 2.1 H (0.0-1.0) mg/dL Direct Bilirubin 0.7 H (0.0-0.5) mg/dL AST 54 H (5-37) U/L ALT 22 (0-40) U/L Alkaline Phosphatase 97 (39-117) U/L Albumin 2.9 L (3.5-5.0) g/dL Microbiology Microbiology Results: Microbiology 06/13/23 08:49 Blood - Venous Blood Culture - Preliminary No growth after 48 hours. 06/13/23 08:17 Blood - Venous Blood Culture - Preliminary No growth after 48 hours. Assessment and Plan (1) Acute hepatic encephalopathy: Status: Acute (2) Cirrhosis: Status: Acute (3) Alcohol use disorder: Status: Acute Plan #Liver cirrhosis 2/2 etOH use disorder - HE - MELD-Na 16 Precipitant of HE appears to be constipation. No evidence of GIB, infection, diarrhea/dehydration in the background. Plan: - Agree with lactulose - for goal 4-5 BMs and then de-escalate dose for goal 2-3 BMs per day once mental status improves - Please carefully monitor electrolytes while on icnreased dose of lactulose, leslie potassium - Add Rifaximin 550mg BID - this can be discontinued at discharge - Increase thiamine to 500mg IV BID x 2 days and then 100mg PO once daily - Can consider adding zinc supplementation if no response to above measures in 1-2 days. - Does not need to restrict protein in diet. BCAA preferred (such as eggs, korean yogurt, peanut butter etc). - Cont abstinence from etOH - last drink 05/30 per sister's report Thank you for allowing me to participate in his care. Please do not hesitate to reach out for questions or concerns. Procedures Date of Service Date of Service: 06/16/23
[2023-06-16] MEDS: Multivitamin TABLET 1 TAB PO (08:59)
[2023-06-16] MEDS: Thiamine HCL 100 MG TABLET PO (08:59)
[2023-06-16] MEDS: Lactulose 20 GM/30 ML SOLUTION 30 GM PO ×4 (08:59→21:37)
[2023-06-16] MEDS: 0.9 % Sodium Chloride Flush 3 ML SYRINGE IVFLUSH ×3 (08:59→22:09)
[2023-06-16] MEDS: Thiamine HCL 500 MG in 0.9 % Sodium Chloride 100 ML 210 MG IV ×2 (10:23→21:36)
--- NOTE | 2023-06-16 10:52 | P.PNIM_ITS ---
Subjective Subjective Date of Service: 06/16/23 Interval History: seen and examined this morning follow up for hepatic encephalopathy more awake today, having BM dry cough, no sob Review of Systems Review of Systems: Yes all other systems are reviewed and are negative Constitutional Constitutional: Denies chills and Denies fever(s) Cardiovascular Cardiovascular: Denies dyspnea Respiratory Respiratory: Reports cough and Denies dyspnea Gastrointestinal Gastrointestinal: Denies abdominal pain Physical Exam 2 Vital Signs: Vital Signs: Last Vital Signs Temp 97.8 F 06/16/23 07:14 Pulse 67 06/16/23 07:14 Resp 12 06/16/23 07:14 BP 124/74 06/16/23 07:14 Pulse Ox 97 06/16/23 07:14 O2 Del Method Room Air 06/16/23 07:14 BMI result Body Mass Index 28.4 Const: Other: chronically ill appearing General: alert and awake Nutritional Appearance: overweight O rientation/consciousness: patient oriented x3 Resp: Effort & Inspection: normal respiratory effort, able to speak in complete sentences, no respiratory distress and no use of accessory muscles Cardio: Rate: regular rate GI: Inspection: No distended Palpation (GI): Soft to palpation and nontender Neuro: Other: +asterixis General: patient oriented x3 and moves all extremities Extrem: Other: able to move all extremities Objective Data Active Medications Acetaminophen (Acetaminophen 325 Mg Tablet) 650 mg PO Q6H PRN PRN Reason: Pain, Mild (Pain Scale 1-3) Last Admin: 06/13/23 21:23 Dose: 650 mg Documented By: COTEMA Thiamine HCl 500 mg/ Sodium (Chloride) 105 mls @ 210 mls/hr IV Q12H [facility] Stop: 06/19/23 09:59 Last Admin: 06/16/23 10:23 Dose: 210 mls/hr Documented By: HANANE Lactulose (Lactulose 20 Gm/30 Ml Solution) 30 gm PO QID [facility] Last Admin: 06/16/23 08:59 Dose: 30 gm Documented By: HANANE Lactulose (Lactulose 320 Gm/480 Ml Solution) 200 gm MS Q4H [facility] Last Admin: 06/16/23 10:50 Dose: 200 gm Documented By: HANANE Melatonin (Melatonin 3 Mg Tablet) 6 mg PO BEDTIME PRN PRN Reason: Insomnia Last Admin: 06/14/23 21:46 Dose: 6 mg Documented By: EDWARDO Multivitamins/Vitamin C (Multivitamin Tablet) 1 tab PO DAILY [facility] Last Admin: 06/16/23 08:59 Dose: 1 tab Documented By: HANANE Omeprazole (Omeprazole 40 Mg Capsule.) 40 mg PO BID@0630,1630 [facility] Last Admin: 06/16/23 06:31 Dose: 40 mg Documented By: CHANTAL Ondansetron HCl (Ondansetron Hcl 4 Mg/2 Ml Vial) 4 mg IVPUSH Q8H PRN PRN Reason: Nausea and Vomiting Rifaximin (Rifaximin 550 Mg Tablet) 550 mg PO BID [facility] Sodium Chloride (0.9 % Sodium Chloride Flush 3 Ml Syringe) 3 ml IVFLUSH QSHIFT [facility] Last Admin: 06/16/23 08:59 Dose: 3 ml Documented By: HANANE Thiamine HCl (Thiamine Hcl 100 Mg Tablet) 100 mg PO DAILY [facility] Last Admin: 06/16/23 08:59 Dose: 100 mg Documented By: HANANE Labs 06/16/23 05:41 06/16/23 05:41 Labs: Laboratory Results - last 24 hr 06/15/23 06/15/23 06/15/23 16:10 16:16 19:10 MCV 87.0 MCH 30.1 MCHC 34.6 RDW 19.1 H Plt Count 141 L MPV 10.6 Absolute Nucleated RBC 0.000 Nucleated RBC % (auto) 0.0 PT 19.7 H INR 1.6 H VBG pH 7.48 H VBG pCO2 26 VBG pO2 173 VBG HCO3 19 L VBG O2 Saturation 99.0 VBG Base Excess -3.0 Anion Gap Estim Creat Clear Calc Estimated GFR Random Glucose Calcium Total Bilirubin Direct Bilirubin AST ALT Alkaline Phosphatase Ammonia 208 H Total Protein Albumin 06/16/23 05:41 MCV 89.5 MCH 30.7 MCHC 34.3 RDW 19.0 H Plt Count 140 L MPV 10.9 Absolute Nucleated RBC 0.000 Nucleated RBC % (auto) 0.0 PT 19.5 H INR 1.6 H VBG pH VBG pCO2 VBG pO2 VBG HCO3 VBG O2 Saturation VBG Base Excess Anion Gap 9 L Estim Creat Clear Calc 93.2 Estimated GFR > 60 Random Glucose 103 Calcium 8.2 L D Total Bilirubin 2.1 H Direct Bilirubin 0.7 H AST 54 H ALT 22 Alkaline Phosphatase 97 Ammonia 88 H Total Protein 6.7 Albumin 2.9 L Microbiology Microbiology Results: Microbiology 06/13/23 08:49 Blood Culture - Preliminary Blood - Venous No growth after 48 hours. 06/13/23 08:17 Blood Culture - Preliminary Blood - Venous No growth after 48 hours. Assessment and Plan (1) Acute hepatic encephalopathy: Status: Acute Plan 57 yo male with history of alcohol abuse and dependence who presents with hepatic encephalopathy Acute metabolic encephalopathy due to hepatic encephalopathy Ammonia trending up 06/15 and treated with MS lactulose; ammonia back down and patient more alert today continue Lactulose rifaxamin added etoh liver disease Abdominal ultrasound for ascites check showing trace fluid, no indication for paracentesis No cirrhosis on abdominal CT LFTs stable HH stable GI consult pending cough cxr ?pneumonia, will obtain chest CT seen by speech, no evidence of aspiration Alcohol dependence hx reports no alcohol intake MVI/Thiamine, PPI IV thiamine per GI rec x 3 days then resume po thiamine hyperkalemia resolved esophagitis diagnosed on previous admission, EGD 06/01 - esophagitis, GEJ ulcer continue PPI avoid NSAIDs Coagulopathy secondary to liver disease No signs of bleeding Thrombocytopenia Secondary to liver disease hypoalbumenia secondary to liver disease, malnutrition replete moisture associated skin damage of penis and scrotum present on admission seen by wound care nurse - Cleanse with PH balance spray or wipes, pat dry. ?Apply thin layer of Triad to wound bed - only pat and dab no scrub and rub when soiling occurs. Reapply thin layer PRN after each episode of incontinence. Weave sheet of Interdry between thighs and under scrotum to create a sling with wick moisture aware from scrotum. DVT prophylaxis pneumatic compression boots Attending Dr. Navarro Full code dispo - PT rec STR continue inpatient admission for treatment of acute hepatic encephalopathy requiring scheduled lactulose and close monitoring of mental status Quality Stroke Does the patient have a stroke diagnosis?: No VTE Prior VTE?: No VTE Risk Level:: Medical - moderate - high VTE Device Contraindication: N/A - Device Ordered VTE Drug Contraindication: Treatment Not Indicated
--- NOTE | 2023-06-16 11:15 | MHC.CM.PN ---
Addendum entered by Erica Parra RN 06/16/23 13:01: SISTERRITA, IS NOW OFFERING TO CONSIDER SNF LONG FAMILY CAN VISIT. SNF REFERRALS UPDATED. Addendum entered by Erica Parra RN 06/16/23 12:53: SNF REFERRALS ARE DENYING BEING ABLE TO ACCOMMODATE FAMILY. SISTERRITA, MADE AWARE Original Note: SISTER/HCPRITA IS ASKING FOR REHAB REFERRALS THAT WILL ALLOW HER OR ANOTHER FAMILY MEMBER TO STAY WITH PATIENT. BARRIERS TO A BED OFFER OF THIS KIND EXPLAINED; HOWEVER REFERRALS PLACED IN THE EVENT THAT AN OFFER IS MADE. ALSO IS ASKING FOR CASE MANAGEMENT TO FIND A NEW [facility] FOR PATIENT PCP GUIDE GIVEN TO RITA AND PROCESS OF SECURING A PCP ([facility]) EXPLAINED. CASE MANAGEMENT FOLLOWING.
--- NOTE | 2023-06-16 13:56 | MHC.SL.SWA ---
Speech Pathologist Impression: Risk of Aspiration Due to: Medically Fragile Dysphasia Diet Status: Liquid Consistency and Strategies for Safe Swallow: Liquid Intake Recommendation: Thin Liquid Intake Strategies: Small Sips Solid Food Consistency: Dietary Recommendations: Regular Additional Modifications to Solid Foods: Patient needs to use caution when drinking with a straw, and take individual, controlled sips (v. chain sips). Oral Medication Intake: Whole with Liquid Please contact the pharmacy regarding appropriate crushable or liquid drug formulations that are available whenever modified delivery is recommended. Compensatory Strategies and Precautions to be Taken for Safe Swallow: Sitting Upright (90 deg) Liquids from Cup Small Bites and Sips Supervision While Eating and Drinking for Safe Swallow: None Needed Foods to Avoid: Swallowing Recommended Treatments: Recommendation for Speech: NA:Typical Evaluation Comment: Patient presents with absent swallow trigger and slight/mild delay initiating swallow, with all other aspects of swallow WFL. Patient evidenced clinical signs of aspiration when taking serial sips of water by straw, but tolerated water well by straw if taking individual sips. Patient otherwise tolerated thin liquids and all food consistencies with no difficulties and no clinical signs of aspiration. Recommend Patient continue on regular diet with thin liquids, pills whole with liquid. Patient and family members were encouraged to use caution if drinking with a straw and to take individual sips. POORNIMA ODOM notified of recommendations by secure text, RN in person. Patient is on least restrictive diet with minimal issues. No further SURVEY RESEARCH ASSOCIATE services recommended at this time, will D/C Swallow consult. Please re-consult if additional concerns arise during inpatient stay. Frequency/Duration: Date Range for Service Req: Timeline to reassess: Senior Consultant Clinican/Clinical Fellow: No Supervisory Statement: I have reviewed and agree with the student/clinical fellow's documentation: N/A Speech Language Pathologist: Stacia Patel M.A., [facility]-SURVE[employer] RESEARCH ASSOCIATE
[2023-06-16 15:35] VITALS: BP 121/58; PULSE 76; RESP 17; TEMP 36.8; O2SAT 98
[2023-06-16 19:05] VITALS: BP 100/59; PULSE 69; RESP 16; TEMP 37.2; O2SAT 96
[2023-06-16] MEDS: Melatonin 3 MG TABLET 6 MG PO (21:37)
[2023-06-16] MEDS: rifAXIMin 550 MG TABLET PO (21:37)
[2023-06-17 03:03] VITALS: BP 99/56; PULSE 72; RESP 14; TEMP 36.4; O2SAT 98
[2023-06-17] MEDS: Omeprazole 40 MG CAPSULE.DR PO ×2 (05:43→16:20)
[2023-06-17 05:59] LABS: Anion Gap 10 (12-20); Blood Urea Nitrogen 14 mg/dL (9-16); Calcium 8.1 mg/dL (8.4-10.2); Carbon Dioxide 19 mmol/L (22-29); Chloride 113 mmol/L (96-108); Creatinine Clr Calc Pharmacy 87.5; Estimated Glomerular Filt Rate > 60; Glucose Random 83 mg/dL (60-115); Potassium 4.9 mmol/L (3.3-5.1); Sodium 137 mmol/L (135-145)
[2023-06-17 07:00] VITALS: BP 103/60; PULSE 68; RESP 14; TEMP 36.3; O2SAT 98
[2023-06-17] MEDS: rifAXIMin 550 MG TABLET PO ×2 (08:13→21:25)
[2023-06-17] MEDS: Lactulose 20 GM/30 ML SOLUTION 30 GM PO ×4 (08:13→21:24)
[2023-06-17] MEDS: Multivitamin TABLET 1 TAB PO (08:13)
[2023-06-17] MEDS: 0.9 % Sodium Chloride Flush 3 ML SYRINGE IVFLUSH ×2 (08:14→21:25)
[2023-06-17] MEDS: Thiamine HCL 500 MG in 0.9 % Sodium Chloride 100 ML 210 MG IV ×2 (10:23→21:25)
--- NOTE | 2023-06-17 10:27 | MHC.CM.PN ---
EMR REVIEWED. PATIENT IS NOT MEDICALLY CLEARED FOR DC AT THIS TIME. PT CONTINUES TO RECOMMEND STR. HOWEVER, INSURANCE DOES NOT HAVE A SNF BENEFIT. CM SPOKE WITH PATIENT'S SISTER WHO IS AWARE. PLAN TO DC HOME W/ FAMILY SUPPORT AND REQUEST VNA SERVICES FROM PCP AT UPCOMING APPT.
[2023-06-17 11:46] VITALS: BP 103/60; PULSE 68; O2SAT 98
--- NOTE | 2023-06-17 14:02 | HO.PM.IMPN ---
Subjective Subjective Date of Service: 06/17/23 Interval History: seen and examined this morning follow up for hepatic encephalopathy more awake, alert today; still with asterixis Review of Systems Review of Systems: Yes all other systems are reviewed and are negative Constitutional Constitutional: Denies chills and Denies fever(s) Cardiovascular Cardiovascular: Denies chest pain, Denies palpitations and Denies dyspnea Respiratory Respiratory: Denies cough and Denies dyspnea Gastrointestinal Gastrointestinal: Denies abdominal pain Endocrine Endocrine: Denies palpitations Physical Exam Vital Signs: Vital Signs: Last Vital Signs Temp 97.4 F 06/17/23 07:00 Pulse 68 06/17/23 11:46 Resp 14 06/17/23 07:00 BP 103/60 06/17/23 11:46 Pulse Ox 98 06/17/23 11:46 O2 Del Method Room Air 06/17/23 07:00 BMI result Body Mass Index 28.4 Const: Other: chronically ill appearing General: alert and awake Nutritional Appearance: overweight Orientation/consciousness: patient oriented x3 Resp: Effort & Inspection: normal respiratory effort, able to speak in complete sentences, no respiratory distress and no use of accessory muscles Cardio: Rate: regular rate GI: Inspection: No distended Palpation (GI): Soft to palpation and nontender Neuro: Other: +asterixis General: patient oriented x3 and moves all extremities Extrem: Other: able to move all extremities Objective Data Active Medications Acetaminophen (Acetaminophen 325 Mg Tablet) 650 mg PO Q6H PRN PRN Reason: Pain, Mild (Pain Scale 1-3) Last Admin: 06/13/23 21:23 Dose: 650 mg Documented By: KEVIN Thiamine HCl 500 mg/ Sodium (Chloride) 105 mls @ 210 mls/hr IV Q12H [facility] Stop: 06/19/23 09:59 Last Infusion: 06/17/23 11:00 Dose: Infused Documented By: HANANE Lactulose (Lactulose 20 Gm/30 Ml Solution) 30 gm PO QID [facility] Last Admin: 06/17/23 13:02 Dose: 30 gm Documented By: HANANE Melatonin (Melatonin 3 Mg Tablet) 6 mg PO BEDTIME PRN PRN Reason: Insomnia Last Admin: 06/16/23 21:37 Dose: 6 mg Documented By: KEVIN Multivitamins/Vitamin C (Multivitamin Tablet) 1 tab PO DAILY [facility] Last Admin: 06/17/23 08:13 Dose: 1 tab Documented By: HANANE Omeprazole (Omeprazole 40 Mg Capsule.) 40 mg PO BID@0630,1630 [facility] Last Admin: 06/17/23 05:43 Dose: 40 mg Documented By: COTEMA Ondansetron HCl (Ondansetron Hcl 4 Mg/2 Ml Vial) 4 mg IVPUSH Q8H PRN PRN Reason: Nausea and Vomiting Rifaximin (Rifaximin 550 Mg Tablet) 550 mg PO BID [facility] Last Admin: 06/17/23 08:13 Dose: 550 mg Documented By: HANANE Sodium Chloride (0.9 % Sodium Chloride Flush 3 Ml Syringe) 3 ml IVFLUSH QSHIFT [facility] Last Admin: 06/17/23 08:14 Dose: 3 ml Documented By: HANANE Thiamine HCl (Thiamine Hcl 100 Mg Tablet) 100 mg PO DAILY [facility] Last Admin: 06/16/23 08:59 Dose: 100 mg Documented By: HANANE Labs 06/16/23 05:41 06/17/23 05:05 Labs: Laboratory Results - last 24 hr 06/17/23 05:05 Hold Purple Top SEE NOTE Anion Gap 10 L Estim Creat Clear Calc 87.5 Estimated GFR > 60 Random Glucose 83 Calcium 8.1 L Assessment and Plan (1) Acute hepatic encephalopathy: Status: Acute Plan 57 yo male with history of alcohol abuse and dependence who presents with hepatic encephalopathy Acute metabolic encephalopathy due to hepatic encephalopathy Ammonia trending up 06/15 and treated with GA lactulose; ammonia back down and patient more alert today continue Lactulose rifaxamin added seen by GI: no need to follow ammonia, continue higher dose of lactulose until asterixis resolves - goal 4-5 BMs and then de-escalate dose for goal 2-3 BMs per day once mental status improves, carefully monitor electrolytes while on increased dose of lactulose, leslie potassium, Add Rifaximin 550mg BID - this can be discontinued at discharge etoh liver disease Abdominal ultrasound for ascites check showing trace fluid, no indication for paracentesis LFTs stable HH stable GI following pneumonia chest CT with groundglass infiltrate in [place] - infectious vs inflammatory no sepsis, soft bp due to liver disease not infection will treat with augmentin recommend repeat CT in 1-3 months to ensure resolution seen by speech, no evidence of aspiration Alcohol dependence hx reports no alcohol intake MVI/Thiamine, PPI IV thiamine per GI rec x 2 days then resume po thiamine hyperkalemia resolved esophagitis diagnosed on previous admission, EGD 06/01 - esophagitis, GEJ ulcer continue PPI avoid NSAIDs Coagulopathy secondary to liver disease No signs of bleeding Thrombocytopenia Secondary to liver disease hypoalbumenia secondary to liver disease, malnutrition moisture associated skin damage of penis and scrotum present on admission seen by wound care nurse - Cleanse with PH balance spray or wipes, pat dry. ?Apply thin layer of Triad to wound bed - only pat and dab no scrub and rub when soiling occurs. Reapply thin layer PRN after each episode of incontinence. Weave sheet of Interdry between thighs and under scrotum to create a sling with wick moisture aware from scrotum. DVT prophylaxis pneumatic compression boots Attending Dr. Navarro Full code dispo - PT rec STR continue inpatient admission for treatment of acute hepatic encephalopathy requiring scheduled lactulose and close monitoring of mental status Quality Stroke Does the patient have a stroke diagnosis?: No VTE Prior VTE?: No VTE Risk Level:: Medical - moderate - high VTE Device Contraindication: N/A - Device Ordered VTE Drug Contraindication: Treatment Not Indicated
--- NOTE | 2023-06-17 14:18 | P.CDIM_ITS ---
PROVIDER RESPONSE TEXT: To clarify, the appropriate diagnosis supported by the clinical indicators: Mild QUERY TEXT: PHYSICIAN'S DOCUMENTATION REQUEST Date of Query: 06/17/2023 09:54 AM EST Patient Name: MARICRUZ ALLEN Admit Date: 06/13/2023 Dear Mckenzie Anne, A review of the medical record indicates additional documentation may be needed. Please review below and update the documentation accordingly. Clinical indicators: Progress note - Plan: hypoalbuminemia secondary to liver disease, malnutrition. Albumin 1.9/2.9 If possible, please provide additional specificity regarding the severity of the malnutrition using t he above information: Mild Moderate Severe Other (explain) Clinically unable to determine (explain) Thank you, Lula Mason, CCS, CDIS Use of terms such as suspected, likely, concern for, or probable (associated with a specific diagnosi s that is being evaluated, monitored, or treated as if it exists) are acceptable and can be coded in the inpatient se tting, when documented at the time of discharge. Please use your independent medical judgment in providing your response. THIS QUERY IS PART OF THE PERMANENT MEDICAL RECORD
[2023-06-17 15:13] VITALS: BP 107/64; PULSE 78; RESP 18; TEMP 36; O2SAT 99
--- NOTE | 2023-06-17 15:33 | P.PNGI_ITS ---
Subjective Subjective Date of Service: 06/17/23 Interval History: More awake and interactive today but continues to be encephalopathic. Also started on Augmentin for PNA. Critical Care Time (minutes): 0 Physical Exam 2 Vital Signs: Vital Signs: Last Vital Signs Temp 96.8 F 06/17/23 15:13 Pulse 78 06/17/23 15:13 Resp 18 06/17/23 15:13 BP 107/64 06/17/23 15:13 Pulse Ox 99 06/17/23 15:13 O2 Del Method Room Air 06/17/23 15:13 BMI result Body Mass Index 28.4 ill appearing jaundiced Abd distended but nontender awake, oriented x2, asterixis ++ Objective Data Labs 06/16/23 05:41 06/17/23 05:05 Labs: Laboratory Results - last 24 hr 06/17/23 05:05 Hold Purple Top SEE NOTE Sodium 137 Potassium 4.9 Chloride 113 H Carbon Dioxide 19 L Anion Gap 10 L BUN 14 Creatinine 1.14 Estim Creat Clear Calc 87.5 Estimated GFR > 60 Random Glucose 83 Calcium 8.1 L Microbiology Microbiology Results: Microbiology 06/13/23 08:49 Blood - Venous Blood Culture - Preliminary No growth after 48 hours. 06/13/23 08:17 Blood - Venous Blood Culture - Preliminary No growth after 48 hours. Procedures Date of Service Date of Service: 06/17/23 Progress Note: A&P Assessment and plan (1) Alcohol use disorder: Status: Acute (2) Cirrhosis: Status: Acute (3) Acute hepatic encephalopathy: Status: Acute (4) Hospital acquired PNA: Status: Acute Plan Pt with improving but persistent encephalopathy. - Cont lactulose and rifaximin - Add zinc sulphate 220 once daily - Consider broadening augmentin to zosyn or cefepime since pt has HAP - CT abd/pel with IV contrast to r/o spontaneous christopher-systemic shunts such as splenorenal shunt (will need IV hydration prior to contrast to avoid MARIELA) Time Spent With Patient Time: Total time managing care of this patient today ____ minutes. Quality Stroke Does the patient have a stroke diagnosis?: No VTE Prior VTE?: No VTE Risk Level:: Medical - moderate - high VTE Device Contraindication: N/A - Device Ordered VTE Drug Contraindication: Treatment Not Indicated
[2023-06-17] MEDS: Amoxicillin/Potassium Clav 875 MG TABLET PO (16:20)
[2023-06-17] MEDS: ondansetron HCL 4 MG/2 ML VIAL IVPUSH (17:59)
[2023-06-17 19:31] VITALS: BP 100/58; PULSE 80; RESP 16; TEMP 36.3; O2SAT 97
[2023-06-18 03:13] VITALS: BP 105/65; PULSE 66; RESP 18; TEMP 36.8; O2SAT 96
[2023-06-18] MEDS: Amoxicillin/Potassium Clav 875 MG TABLET PO ×2 (04:37→15:12)
[2023-06-18 05:38] LABS: Anion Gap 9 (12-20); Blood Urea Nitrogen 15 mg/dL (9-16); Calcium 8.1 mg/dL (8.4-10.2); Carbon Dioxide 19 mmol/L (22-29); Chloride 115 mmol/L (96-108); Creatinine Clr Calc Pharmacy 89.9; Estimated Glomerular Filt Rate > 60; Glucose Random 82 mg/dL (60-115); Potassium 4.7 mmol/L (3.3-5.1); Sodium 138 mmol/L (135-145)
[2023-06-18] MEDS: Omeprazole 40 MG CAPSULE.DR PO ×2 (05:47→16:18)
[2023-06-18 07:44] VITALS: BP 107/65; PULSE 66; RESP 17; TEMP 36.2; O2SAT 97
[2023-06-18] MEDS: 0.9 % Sodium Chloride Flush 3 ML SYRINGE IVFLUSH ×3 (09:20→22:14)
[2023-06-18] MEDS: Multivitamin TABLET 1 TAB PO (09:21)
[2023-06-18] MEDS: Lactulose 20 GM/30 ML SOLUTION 30 GM PO ×3 (09:21→16:18)
[2023-06-18] MEDS: rifAXIMin 550 MG TABLET PO ×2 (09:21→22:14)
--- NOTE | 2023-06-18 09:49 | P.PNIM_ITS ---
Subjective Subjective Date of Service: 06/18/23 Interval History: seen and examined this morning follow up for hepatic encephalopathy more awake, alert today; still with asterixis Review of Systems Review of Systems: Yes all other systems are reviewed and are negative Constitutional Constitutional: Denies chills and Denies fever(s) Cardiovascular Cardiovascular: Denies chest pain, Denies palpitations and Denies dyspnea Respiratory Respiratory: Denies cough and Denies dyspnea Gastrointestinal Gastrointestinal: Denies abdominal pain Endocrine Endocrine: Denies palpitations Physical Exam 2 Vital Signs: Vital Signs: Last Vital Signs Temp 97.2 F 06/18/23 07:44 Pulse 66 06/18/23 07:44 Resp 17 06/18/23 07:44 BP 107/65 06/18/23 07:44 Pulse Ox 97 06/18/23 07:44 O2 Del Method Room Air 06/18/23 07:44 BMI result Body Mass Index 28.4 Appearing in no acute distress lung sounds are clear to auscultation heart regular rate rhythm, clear S1, S2 positive bowel sounds, abdomen is soft, nontender neuro patient is alert x3, no focal deficits Objective Data Active Medications Acetaminophen (Acetaminophen 325 Mg Tablet) 650 mg PO Q6H PRN PRN Reason: Pain, Mild (Pain Scale 1-3) Last Admin: 06/13/23 21:23 Dose: 650 mg Documented By: KEVIN Amoxicillin/Clavulanate Potassium (Amoxicillin/Potassium Clav 875 Mg Tablet) 875 mg PO Q12H [facility] Last Admin: 06/18/23 04:37 Dose: 875 mg Documented By: TIARA Thiamine HCl 500 mg/ Sodium (Chloride) 105 mls @ 210 mls/hr IV Q12H [facility] Stop: 06/18/23 09:59 Last Infusion: 06/17/23 22:02 Dose: Infused Documented By: TIARA Lactulose (Lactulose 20 Gm/30 Ml Solution) 30 gm PO QID [facility] Last Admin: 06/18/23 09:21 Dose: 30 gm Documented By: KATERIN Melatonin (Melatonin 3 Mg Tablet) 6 mg PO BEDTIME PRN PRN Reason: Insomnia Last Admin: 06/16/23 21:37 Dose: 6 mg Documented By: KEVIN Multivitamins/Vitamin C (Multivitamin Tablet) 1 tab PO DAILY [facility] Last Admin: 06/18/23 09:21 Dose: 1 tab Documented By: KATERIN Omeprazole (Omeprazole 40 Mg Capsule.Dr) 40 mg PO BID@0630,1630 [facility] Last Admin: 06/18/23 05:47 Dose: 40 mg Documented By: TIARA Ondansetron HCl (Ondansetron Hcl 4 Mg/2 Ml Vial) 4 mg IVPUSH Q8H PRN PRN Reason: Nausea and Vomiting Last Admin: 06/17/23 17:59 Dose: 4 mg Documented By: HANANE Rifaximin (Rifaximin 550 Mg Tablet) 550 mg PO BID [facility] Last Admin: 06/18/23 09:21 Dose: 550 mg Documented By: KATERIN Sodium Chloride (0.9 % Sodium Chloride Flush 3 Ml Syringe) 3 ml IVFLUSH QSHIFT [facility] Last Admin: 06/18/23 09:20 Dose: 3 ml Documented By: KATERIN Thiamine HCl (Thiamine Hcl 100 Mg Tablet) 100 mg PO DAILY [facility] Last Admin: 06/16/23 08:59 Dose: 100 mg Documented By: HANANE Labs 06/16/23 05:41 06/18/23 04:55 Labs: Laboratory Results - last 24 hr 06/18/23 04:55 Hold Purple Top SEE NOTE Anion Gap 9 L Estim Creat Clear Calc 89.9 Estimated GFR > 60 Random Glucose 82 Calcium 8.1 L Assessment and Plan (1) Acute hepatic encephalopathy: Status: Acute Plan 57 yo male with history of alcohol abuse and dependence who presents with hepatic encephalopathy Acute metabolic encephalopathy due to hepatic encephalopathy Ammonia trending up 06/15 and treated with SD lactulose; ammonia back down and patient more alert today continue Lactulose rifaxamin added seen by GI: no need to follow ammonia, continue higher dose of lactulose until asterixis resolves - goal 4-5 BMs and then de-escalate dose for goal 2-3 BMs per day once mental status improves, carefully monitor electrolytes while on increased dose of lactulose, leslie potassium, Add Rifaximin 550mg BID - this can be discontinued at discharge etoh liver disease Abdominal ultrasound for ascites check showing trace fluid, no indication for paracentesis LFTs stable HH stable GI following pneumonia chest CT with groundglass infiltrate in [place] - infectious vs inflammatory no sepsis, soft bp due to liver disease not infection continue augmentin recommend repeat CT in 1-3 months to ensure resolution seen by speech, no evidence of aspiration Alcohol dependence hx reports no alcohol intake MVI/Thiamine, PPI IV thiamine per GI rec x 2 days then resume po thiamine hyperkalemia resolved esophagitis diagnosed on previous admission, EGD 06/01 - esophagitis, GEJ ulcer continue PPI avoid NSAIDs Coagulopathy secondary to liver disease No signs of bleeding Thrombocytopenia Secondary to liver disease hypoalbumenia secondary to liver disease, malnutrition moisture associated skin damage of penis and scrotum present on admission seen by wound care nurse - Cleanse with PH balance spray or wipes, pat dry. ?Apply thin layer of Triad to wound bed - only pat and dab no scrub and rub when soiling occurs. Reapply thin layer PRN after each episode of incontinence. Weave sheet of Interdry between thighs and under scrotum to create a sling with wick moisture aware from scrotum. DVT prophylaxis pneumatic compression boots Attending Dr. Short Full code continue inpatient admission for treatment of acute hepatic encephalopathy requiring scheduled lactulose and close monitoring of mental status Quality Stroke Does the patient have a stroke diagnosis?: No VTE Prior VTE?: No VTE Risk Level:: Medical - moderate - high VTE Device Contraindication: N/A - Device Ordered VTE Drug Contraindication: Treatment Not Indicated
[2023-06-18 16:00] VITALS: BP 112/71; PULSE 69; RESP 18; TEMP 36.4; O2SAT 98
[2023-06-18 20:00] VITALS: BP 106/64; PULSE 67; RESP 18; TEMP 36.4; O2SAT 98
[2023-06-18] MEDS: Melatonin 3 MG TABLET 6 MG PO (22:14)
[2023-06-19 03:14] VITALS: BP 110/66; PULSE 71; RESP 16; TEMP 36.8; O2SAT 98
[2023-06-19] MEDS: Amoxicillin/Potassium Clav 875 MG TABLET PO ×2 (03:23→16:11)
[2023-06-19] MEDS: Omeprazole 40 MG CAPSULE.DR PO ×2 (06:11→16:11)
[2023-06-19 07:56] VITALS: BP 101/58; PULSE 69; RESP 17; TEMP 36.3; O2SAT 98
--- NOTE | 2023-06-19 08:48 | P.PNIM_ITS ---
Subjective Subjective Date of Service: 06/19/23 Interval History: seen and examined this morning follow up for hepatic encephalopathy more awake, alert today; still with asterixis Review of Systems Review of Systems: Yes all other systems are reviewed and are negative Constitutional Constitutional: Denies chills and Denies fever(s) Cardiovascular Cardiovascular: Denies chest pain, Denies palpitations and Denies dyspnea Respiratory Respiratory: Denies cough and Denies dyspnea Gastrointestinal Gastrointestinal: Denies abdominal pain Endocrine Endocrine: Denies palpitations Physical Exam 2 Vital Signs: Vital Signs: Last Vital Signs Temp 97.4 F 06/19/23 07:56 Pulse 69 06/19/23 07:56 Resp 17 06/19/23 07:56 BP 101/58 L 06/19/23 07:56 Pulse Ox 98 06/19/23 07:56 O2 Del Method Room Air 06/19/23 07:56 BMI result Body Mass Index 28.4 Appearing in no acute distress lung sounds are clear to auscultation heart regular rate rhythm, clear S1, S2 positive bowel sounds, abdomen is soft, nontender neuro patient is alert x3, no focal deficits Objective Data Active Medications Acetaminophen (Acetaminophen 325 Mg Tablet) 650 mg PO Q6H PRN PRN Reason: Pain, Mild (Pain Scale 1-3) Last Admin: 06/13/23 21:23 Dose: 650 mg Documented By: COTEMA Amoxicillin/Clavulanate Potassium (Amoxicillin/Potassium Clav 875 Mg Tablet) 875 mg PO Q12H [facility] Last Admin: 06/19/23 03:23 Dose: 875 mg Documented By: TIARA Lactulose (Lactulose 20 Gm/30 Ml Solution) 30 gm PO QID [facility] Last Admin: 06/18/23 22:18 Dose: Not Given Documented By: TIARA Non-Admin Reason: 4 bm's today Melatonin (Melatonin 3 Mg Tablet) 6 mg PO BEDTIME PRN PRN Reason: Insomnia Last Admin: 06/18/23 22:14 Dose: 6 mg Documented By: TIARA Multivitamins/Vitamin C (Multivitamin Tablet) 1 tab PO DAILY [facility] Last Admin: 06/18/23 09:21 Dose: 1 tab Documented By: KATERIN Omeprazole (Omeprazole 40 Mg Mikayla.) 40 mg PO BID@0630,1630 [facility] Last Admin: 06/19/23 06:11 Dose: 40 mg Documented By: TIARA Ondansetron HCl (Ondansetron Hcl 4 Mg/2 Ml Vial) 4 mg IVPUSH Q8H PRN PRN Reason: Nausea and Vomiting Last Admin: 06/17/23 17:59 Dose: 4 mg Documented By: HANANE Rifaximin (Rifaximin 550 Mg Tablet) 550 mg PO BID [facility] Last Admin: 06/18/23 22:14 Dose: 550 mg Documented By: TIARA Sodium Chloride (0.9 % Sodium Chloride Flush 3 Ml Syringe) 3 ml IVFLUSH QSHIFT [facility] Last Admin: 06/18/23 22:14 Dose: 3 ml Documented By: TIARA Thiamine HCl (Thiamine Hcl 100 Mg Tablet) 100 mg PO DAILY [facility] Last Admin: 06/16/23 08:59 Dose: 100 mg Documented By: HANANE Labs 06/16/23 05:41 06/18/23 04:55 Microbiology Microbiology Results: Microbiology 06/13/23 08:49 Blood Culture - Final Blood - Venous No growth after 5 days. 06/13/23 08:17 Blood Culture - Final Blood - Venous No growth after 5 days. Assessment and Plan (1) Acute hepatic encephalopathy: Status: Acute Plan 57 yo male with history of alcohol abuse and dependence who presents with hepatic encephalopathy Acute metabolic encephalopathy due to hepatic encephalopathy Ammonia trending up 06/15 and treated with [place] lactulose; ammonia back down and patient more alert today continue Lactulose rifaxamin added seen by GI: no need to follow ammonia, continue higher dose of lactulose until asterixis resolves - goal 4-5 BMs and then de-escalate dose for goal 2-3 BMs per day once mental status improves, carefully monitor electrolytes while on increased dose of lactulose, leslie potassium, Add Rifaximin 550mg BID - this can be discontinued at discharge etoh liver disease Abdominal ultrasound for ascites check showing trace fluid, no indication for paracentesis LFTs stable HH stable GI following pneumonia chest CT with groundglass infiltrate in [place] - infectious vs inflammatory no sepsis, soft bp due to liver disease not infection continue augmentin recommend repeat CT in 1-3 months to ensure resolution seen by speech, no evidence of aspiration Alcohol dependence hx reports no alcohol intake MVI, PPI s/p IV thiamine, continue po thiamine hyperkalemia resolved esophagitis diagnosed on previous admission, EGD 06/01 - esophagitis, GEJ ulcer continue PPI avoid NSAIDs Coagulopathy secondary to liver disease No signs of bleeding Thrombocytopenia Secondary to liver disease hypoalbumenia secondary to liver disease, malnutrition moisture associated skin damage of penis and scrotum present on admission seen by wound care nurse - Cleanse with PH balance spray or wipes, pat dry. ?Apply thin layer of Triad to wound bed - only pat and dab no scrub and rub when soiling occurs. Reapply thin layer PRN after each episode of incontinence. Weave sheet of Interdry between thighs and under scrotum to create a sling with wick moisture aware from scrotum. DVT prophylaxis pneumatic compression boots Attending Dr. Short Full code continue inpatient admission for treatment of acute hepatic encephalopathy requiring scheduled lactulose and close monitoring of mental status Quality Stroke Does the patient have a stroke diagnosis?: No VTE Prior VTE?: No VTE Risk Level:: Medical - moderate - high VTE Device Contraindication: N/A - Device Ordered VTE Drug Contraindication: Treatment Not Indicated
[2023-06-19] MEDS: 0.9 % Sodium Chloride Flush 3 ML SYRINGE IVFLUSH ×3 (09:07→21:58)
[2023-06-19] MEDS: Lactulose 20 GM/30 ML SOLUTION 30 GM PO ×4 (09:07→21:55)
[2023-06-19] MEDS: rifAXIMin 550 MG TABLET PO ×2 (09:08→21:55)
[2023-06-19] MEDS: Multivitamin TABLET 1 TAB PO (09:08)
[2023-06-19 15:23] VITALS: BP 102/52; PULSE 79; RESP 16; TEMP 36.4; O2SAT 97
[2023-06-19 19:26] VITALS: BP 100/55; PULSE 80; RESP 16; TEMP 36.5; O2SAT 98
[2023-06-19] MEDS: Melatonin 3 MG TABLET 6 MG PO (21:54)
[2023-06-20 02:45] VITALS: BP 100/58; PULSE 73; RESP 16; TEMP 36.6; O2SAT 98
[2023-06-20] MEDS: Omeprazole 40 MG CAPSULE.DR PO (04:59)
[2023-06-20] MEDS: Amoxicillin/Potassium Clav 875 MG TABLET PO (04:59)
[2023-06-20 07:30] VITALS: BP 101/58; PULSE 63; RESP 16; TEMP 36.4; O2SAT 98
[2023-06-20] MEDS: 0.9 % Sodium Chloride Flush 3 ML SYRINGE IVFLUSH (09:03)
[2023-06-20 09:24] LABS: Hematocrit 23.8 % (42.0-52.0); Hemoglobin 7.9 g/dl (14.0-18.0); Mean Corpuscular HGB Conc 33.2 g/dl (31.0-36.0); Mean Corpuscular Hemoglobin 30.3 pg (27.0-33.0); Mean Corpuscular Volume 91.2 fL (80.0-98.0); Mean Platelet Volume 11.8 fL (9.4-12.4); Platelet Count 161 X10*3/uL (160-400); Red Blood Count 2.61 X10*6/uL (4.60-5.80); Red Cell Distribution Width 18.7 % (11.0-16.0); White Blood Count 5.2 X10*3/uL (4.8-10.8)
[2023-06-20] MEDS: Multivitamin TABLET 1 TAB PO (09:36)
[2023-06-20] MEDS: rifAXIMin 550 MG TABLET PO (09:36)
[2023-06-20 09:38] LABS: Anion Gap 6 (12-20); Blood Urea Nitrogen 11 mg/dL (9-16); Calcium 7.7 mg/dL (8.4-10.2); Carbon Dioxide 20 mmol/L (22-29); Chloride 113 mmol/L (96-108); Creatinine Clr Calc Pharmacy 100.8; Estimated Glomerular Filt Rate > 60; Glucose Random 71 mg/dL (60-115); Potassium 5.2 mmol/L (3.3-5.1); Sodium 134 mmol/L (135-145)
--- NOTE | 2023-06-20 10:37 | PM.DS ---
DS: Providers Provider Date of Service: 06/20/23 Date of admission: 06/13/23 11:30 Primary care physician: Nonstaff Physician Consults: 06/13/23 21:44 Consult to Wound Care Routine Reason for consultation: peeling skin to scrotum Has provider been notified: No 06/15/23 16:43 Consult to Gastroenterology Routine Consulting Provider: Brenna Mena Reason for consultation: hepatic encephalopathy DS: Diagnosis Discharge Diagnosis (1) Acute hepatic encephalopathy: Status: Acute DS: Summary Hospital Course Hospital Course: History and physical as per admitting provider. 57-year-old man presenting to the ER with increased weakness, lethargy since yesterday. Patient was discharged on June 07 and at that time treated for acute hepatic encephalopathy secondary to acute liver failure. Patient reports compliance with medications, declines any alcohol or drug intake. Apparently the patient had become disoriented and when he woke up he was still confused and complaint of weakness and was unable to ambulate on his own. Apparently had multiple unwitnessed falls. Apparently also the sister had given him a muscle relaxant yesterday. Patient denied chest pain, nausea, vomiting, diarrhea, fever, chills, recent travel. Vital signs stable, no fever, ammonia 162. Patient was given p.r. lactulose in the ER. Plan will be to admit and treat for acute hepatic encephalopathy. 57-year-old man treated for hepatic encephalopathy and asterixis. Initially treated with per rectum lactulose with good effect then continued on 30 mg q.i.d., rifaximin added as patient continued to have asterixis for several days. At this point patient is having multiple bowel movements today, asterixis is resolved, patient is alert and oriented and ambulating. Plan is to discharge patient home with family. Seen evaluated by Gastroenterology while inpatient, no need for rifaximin at home. Plan is to discharge patient home with sister. She is to monitor him for any signs of encephalopathy and returned to the hospital if he develops these. History of alcohol dependence. Continue multivitamin, thiamine and PPI History of esophagitis. Continue PPI Time Attestation Discharge Coordination Time: discharge time of ____ minutes Quality: Safe Use of Opioids Does Pt have an Active Cancer Diagnosis on the Problem List?: No Quality: Stroke Does the patient have a stroke diagnosis?: No Physical Exam Vital Signs: Vital Signs: Last Vital Signs Temp 97.5 F 06/20/23 07:30 Pulse 63 06/20/23 07:30 Resp 16 06/20/23 07:30 BP 101/58 L 06/20/23 07:30 Pulse Ox 98 06/20/23 07:30 O2 Del Method Room Air 06/20/23 07:30 BMI result Body Mass Index 28.4 DS: Data Data Completed and Pending Completed studies during hospitalization [Text1]: Procedures Detoxification Services for Substance Abuse Treatment (05/31/23) Extirpation of Matter from Penis, Open Approach (09/11/22) Inspection of Upper Intestinal Tract, Via Natural or Artificial Opening Endoscopic (05/31/23) Resection of Prepuce, External Approach (09/11/22) Transfusion of Nonautologous Platelets into Peripheral Vein, Percutaneous Approach (09/11/22) Transfusion of Nonautologous Red Blood Cells into Peripheral Vein, Percutaneous Approach (05/31/23) Labs on day of discharge: Laboratory Results - last 24 hr 06/20/23 07:34 WBC 5.2 RBC 2.61 L Hgb 7.9 L Hct 23.8 L MCV 91.2 MCH 30.3 MCHC 33.2 RDW 18.7 H Plt Count 161 MPV 11.8 Absolute Nucleated RBC 0.000 Nucleated RBC % (auto) 0.0 Sodium 134 L Potassium 5.2 H Chloride 113 H Carbon Dioxide 20 L Anion Gap 6 L BUN 11 Creatinine 0.99 Estim Creat Clear Calc 100.8 Estimated GFR > 60 Random Glucose 71 Calcium 7.7 L Discharge Plan Discharge Anticipated Discharge Date/Time: 06/20/23 10:26 Patient Disposition: Home, Self-Care Discharge Diagnosis: Hepatic encephalopathy Community-acquired pneumonia Referrals: Brenna Mena MD [Physician] - None Discharge Medications: New amoxicillin-pot clavulanate 875-125 mg Tablet 1 tab PO Q12H Qty: 6 0RF lactulose 20 gram/30 mL Solution 30 g PO TID Qty: 2880 0RF Continued omeprazole 40 mg Capsule,Delayed Release(Dr/Ec) 40 mg PO BID@0630,1630 56 Days Qty: 142 0RF Rx Instructions: twice daily for 8 weeks then once daily thiamine mononitrate (vit B1) 100 mg Tablet 100 mg PO DAILY Qty: 90 0RF multivitamin [Daily-Sherry] Tablet 1 tab PO DAILY Qty: 90 0RF (DME) Ultra-Light Rollator Misc See Rx Instructions .Route Qty: 1 0RF Rx Instructions: As directed (DME) walker [facility] [place] See Rx Instructions .Route Qty: 1 0RF Rx Instructions: As directed Discontinued lactulose 20 gram/30 mL Solution 20 g PO TID Qty: 3000 0RF ciprofloxacin HCl [Cipro] 250 mg tablet 250 mg PO BID Qty: 14 0RF Discharge Orders: Discharge Order (Routine); Ordered 06/20/23 Ordered By: Sophie Tejada Diet: Advance to usual diet Activity on Discharge: As tolerated Stand Alone Forms: Patient Portal Discharge page Care Plan Goals: Your lactulose was increased to 30 g 3 times a day Health Concerns: Hepatic encephalopathy Community-acquired pneumonia Plan of Treatment: Follow-up with primary care provider at next scheduled appointment Take all medications as prescribed Assessment: See discharge summary
[2023-06-20] MEDS: Sodium Zirconium Cyclosilicate 10 GM POWD.PACK PO (11:36)
== END 2023-06-20 13:09 | disposition home or self-care (01) | DRG 280 ==
LOC: HO.ED 07:17 → HO.EDOVER 11:50 → HO.S3 20:07
PROVIDERS: Physician Assistant Medical; Admitting Provider Nurse Practitioner Acute Care; Emergency Provider Emergency Medicine; Visit Provider Nurse Practitioner Acute Care
DX: K76.82 Hepatic encephalopathy (principal); K70.30 Alcoholic cirrhosis of liver without ascites; G93.41 Metabolic encephalopathy; J18.9 Pneumonia, unspecified organism; D68.4 Acquired coagulation factor deficiency; D69.59 Other secondary thrombocytopenia; E87.5 Hyperkalemia; E44.1 Mild protein-calorie malnutrition; L24.A0 Irritant contact dermatitis due to friction or contact with body fluids, unspecified; K20.90 Esophagitis, unspecified without bleeding; F10.21 Alcohol dependence, in remission; Z68.28 Body mass index [BMI] 28.0-28.9, adult; R29.6 Repeated falls; K76.0 Fatty (change of) liver, not elsewhere classified; Z20.822 Contact with and (suspected) exposure to COVID-19; Z87.891 Personal history of nicotine dependence; Z98.84 Bariatric surgery status; Z79.899 Other long term (current) drug therapy
CPT/HCPCS: 36415; 70450; 71045; 71250; 76705; 80048; 80053; 80076; 80307; 81003; 82140; 82803; 83690; 83735; 83880; 85025; 85027; 85610; 85730; 87040; 87502; 87635; 92610; 97110; 97116; 97140; 97162; 99285; J2405; J3411; P9047

== ENCOUNTER → 2023-06-13 11:30 | Outpatient (BNV) | payer BC, SELFPAY | PROVIDERS: Admitting Provider Nurse Practitioner Acute Care; Emergency Provider Emergency Medicine; Visit Provider Nurse Practitioner Acute Care | DX: K76.82 Hepatic encephalopathy (principal) | CPT/HCPCS: 99223; 99232; 99233; 99238 ==

== ENCOUNTER → 2023-06-13 11:30 | Outpatient (BNV) | payer BC, SELFPAY | PROVIDERS: Admitting Provider Nurse Practitioner Acute Care; Emergency Provider Emergency Medicine; Visit Provider Internal Medicine | DX: F10.90 Alcohol use, unspecified, uncomplicated (principal); K74.60 Unspecified cirrhosis of liver; K76.82 Hepatic encephalopathy; J18.9 Pneumonia, unspecified organism; Y95 Nosocomial condition | CPT/HCPCS: 99223; 99232 ==

== ENCOUNTER → 2023-06-24 14:23 | Outpatient (BNVA) | payer BC, SELFPAY | PROVIDERS: Visit Provider Internal Medicine ==

== ENCOUNTER 2023-06-24 14:25 | Outpatient (AMB) | payer BC, SELFPAY ==
--- NOTE | 2023-06-24 14:21 | A.OFFVIS_ITS ---
Intake Vital Signs 06/24/23 14:42 Pulse 81 Pulse Oximetry (%) 99 Intake Visit Reasons: Ref.[facility],Hep-C/abd wall cellulitis Allergies No Known Allergies Allergy (Verified 06/24/23 14:43) HPI Ref.[facility],Hep-C/abd wall cellulitis HPI Details He has abdominal wall cellulitis now resolving,just small area skin thickness. Hepatitis C viral load is negative. [facility] Medical History Cirrhosis Alcohol use disorder Liver lesion Substance use Anemia Hepatic steatosis Diarrhea resulting from infection of the bowel mucosa Anemia Chronic kidney disease Alcohol dependence Surgical History History of urologic surgery H/O varicose vein stripping S/P bariatric surgery Social History Household Members: Family Household Members Other:: 2 Housing: Apartment Do you presently have visiting nurse or other home services: No Alcohol intake: former Comment: bed alarm does not work Patient Tobacco Use Status: Former Tobacco user Quit Date: 2022 Tobacco use type: Cigarette Substance Use Type: Crack/Cocaine and Marijuana service: No Current occupational status: employed Review of Systems Const All systems reviewed & are unremarkable except as noted in HPI and below Physical Exam Vital Signs: Last Vital Signs Pulse 81 06/24/23 14:42 Pulse Ox 99 06/24/23 14:42 Const General: cooperative Orientation/consciousness: patient oriented x3 HEENT Head: Yes normal to inspection Mouth: Normal oral and palatal mucosa present Eyes General: appearance normal, both eyes and all related structures Pupils: Equal, round and reactive pupils present Resp Effort & Inspection: normal respiratory effort Cardio Rate: regular rate Rhythm: regular rhythm GI Palpation (GI): Soft to palpation and nontender General: Yes no CVA tenderness Back/Spine/Pelvis Back: no CVA tenderness Skin General skin exam: no rashes or lesions noted Neuro General: patient oriented x3 Cranial nerves: Yes CN's II-XII intact bilaterally and Yes Equal, round and reactive pupils present Extrem General: Yes normal to inspection Psych Appearance: grossly normal Assessment & Plan Assessment & Plan (1) Alcohol use disorder: Comment: No cellulitis at this time Hepatitis C resolved Code(s): F10.90 - Alcohol use, unspecified, uncomplicated Plan: n/a (2) Cirrhosis: Comment: No further appointments See prn need. Code(s): K74.60 - Unspecified cirrhosis of liver Plan: na Coding Level of Care Code Est Pt Level 3 (13705) Diagnoses Alcohol use disorder F10.90 Cirrhosis K74.60
[2023-06-24 14:42] VITALS: PULSE 81; O2SAT 99
== END 2023-06-24 15:54 | disposition home or self-care (01) ==
PROVIDERS: Visit Provider Internal Medicine
DX: F10.90 Alcohol use, unspecified, uncomplicated (principal); K74.60 Unspecified cirrhosis of liver
CPT/HCPCS: 99213

== ENCOUNTER 2023-06-27 11:59 | Outpatient (REF) | payer BC, SELFPAY ==
[2023-06-27 15:04] LABS: Anion Gap 9 (12-20); Blood Urea Nitrogen 12 mg/dL (9-16); Calcium 8.3 mg/dL (8.4-10.2); Carbon Dioxide 21 mmol/L (22-29); Chloride 114 mmol/L (96-108); Estimated Glomerular Filt Rate > 60; Glucose Random 81 mg/dL (60-115); Potassium 5.7 mmol/L (3.3-5.1); Sodium 138 mmol/L (135-145)
== END 2023-06-27 12:00 | disposition home or self-care (01) ==
LOC: HO.LAB 11:59
PROVIDERS: PCP Registered Nurse; Visit Provider Internal Medicine
DX: K74.60 Unspecified cirrhosis of liver (principal); K72.90 Hepatic failure, unspecified without coma; F10.90 Alcohol use, unspecified, uncomplicated; E87.5 Hyperkalemia
CPT/HCPCS: 36415; 80048

== ENCOUNTER 2023-06-27 11:59 | Outpatient (AMB) | payer BC, SELFPAY ==
--- NOTE | 2023-06-27 12:25 | A.OFFVIS_ITS ---
Intake Vital Signs 06/27/23 12:27 Height 6 ft Weight 207 lb BMI 28.1 BP 98/50 L Blood Pressure Location Lt brachial Position Sitting Pulse 72 Intake Visit Reasons: ER Follow Up, Hep C Intake Note: Patient new consult for ED followup HCV. Patient cc: diarrhea and right side of lower abdominal is hard and painful, and tiredness, denies any other GI issues. Ambulance Officer Required: No Accompanied by: Sister Allergies No Known Allergies Allergy (Verified 06/27/23 12:24) HPI HPI Comments History of Present Illness Details This is a 57-year-old gentleman with past medical history of polysubstance use disorder including alcohol and cocaine, who is here for follow up. Pt was seen in consultation in hospital on 05/31/23 (anemia/GIB) and 06/16/23 (HE). Here accompanied by his sister who is very involved in his care and in fact advocated to move him from [place] (where he was living by himself) to her house in [place]. Main issue is daytime sleepiness with limited night time sleep. Otherwise, reports good energy, trying to keep up with activity levels. Has been eating good - though not restricting salt and red meat as much as he should. No abd pain, N,V, change in bowel habits. Sober from etOH x 1 month! [facility] Medical History (Updated 06/27/23 @ 14:00 by Brenna Mena MD) Anemia Cirrhosis Alcohol use disorder Liver lesion Substance use Anemia Hepatic steatosis Diarrhea resulting from infection of the bowel mucosa Chronic kidney disease Alcohol dependence Surgical History History of urologic surgery H/O varicose vein stripping S/P bariatric surgery Social History Household Members: Family Household Members Other:: 2 Housing: Apartment Do you presently have visiting nurse or other home services: No Alcohol intake: former Comment: bed alarm does not work Patient Tobacco Use Status: Former Tobacco user Quit Date: 2022 Tobacco use type: Cigarette Substance Use Type: Crack/Cocaine and Marijuana service: No Current occupational status: employed Review of Systems Const All systems reviewed & are unremarkable except as noted in HPI and below Physical Exam Vital Signs: Last Vital Signs Pulse 72 06/27/23 12:27 BP 98/50 L 06/27/23 12:27 BMI result Body Mass Index 28.1 Gen Appear: NAD, undernourished HEENT: no bitemporal wasting noted Chest: CTA CVS: Regular S1/S2 no murmurs Abd: soft, nontender, nondistended, no shifting dullness to percussion, bowel sounds active Ext: +++ peripheral edema bilaterally Neuro: A/Ox3, + asterixis Assessment & Plan Assessment & Plan (1) Decompensated hepatic cirrhosis: Code(s): K72.90 - Hepatic failure, unspecified without coma; K74.60 - Unspecified cirrhosis of liver (2) Alcohol use disorder: Code(s): F10.90 - Alcohol use, unspecified, uncomplicated (3) Acute hepatic encephalopathy: Code(s): K76.82 - Hepatic encephalopathy (4) Hyperkalemia: Code(s): E87.5 - Hyperkalemia Plan MELD-Na 18 Child Wiseman Class B Congratulated on sobriety x 4 weeks. Encouraged compliance with salt restriction. We will also start on diuretic after checking updated BMP. Advised on increasing protein intake with food. Will re-evaluate at next visit to see if he will benefit from protein shakes. In addition, also need a colonoscopy in near future for complete evaluation of anemia. Plan: - Evidence of grade II encephalopathy on exam today. Advised use of lactulose for gal 2-3BMs per day. Will add Rifaximin if PA approved. - Mild ascites and gross pitting edema noted on exam. Add furosemide 40mg PO. Echo grossly normal from last hospitalisation. Recheck BMP today and in 2 weeks. - No varices on EGD 05/2023. Next EGD in 2024. - HCC screening due in 11/2023 - Counseled on nutrition including protein intake. Add night time snack. - No NSAIDs. - Transplant eval contingent on overall liver function at 6m sobriety shorty. Follow up 4 weeks. Orders: Orders Basic Metabolic Panel 06/27/23 K74.60 - Unspecified cirrhosis of liver Basic Metabolic Panel 2 Weeks E87.5 - Hyperkalemia Medications: New furosemide 40 mg PO DAILY 90 tabs 0RF Coding Level of Care Code Est Pt Level 4 (40801) Diagnoses Decompensated hepatic cirrhosis K72.90; K74.60 Alcohol use disorder F10.90 Acute hepatic encephalopathy K76.82 Hyperkalemia E87.5
[2023-06-27 12:27] VITALS: BP 98/50; PULSE 72; BMI 28.1
== END 2023-06-27 13:01 | disposition home or self-care (01) ==
PROVIDERS: PCP Registered Nurse; Visit Provider Internal Medicine
DX: K72.90 Hepatic failure, unspecified without coma (principal); K74.60 Unspecified cirrhosis of liver; F10.90 Alcohol use, unspecified, uncomplicated; K76.82 Hepatic encephalopathy; E87.5 Hyperkalemia
CPT/HCPCS: 99214

== ENCOUNTER 2023-07-03 08:50 | Inpatient (IN) | payer BC, MEDICAID, SELFPAY ==
[2023-07-03] VITALS (8 sets, daily range): BP systolic 89–122; BP diastolic 48–74; PULSE 59–80; RESP 18–23; TEMP 36.3–37.1; O2SAT 94–100; BMI 29.7; BMI 29.0
--- NOTE | ~2023-07-03 | XR_ITS ---
EXAMINATION: XR CHEST CLINICAL INFORMATION: Weakness COMPARISON: Chest radiograph 06/15/2023 TECHNIQUE: Frontal view of the chest was obtained. FINDINGS: Lungs are hypoinflated, limiting assessment. Central vessels are prominent and there is mild cardiomegaly. There are prominent interstitial markings. No focal consolidation or definite effusion. XR/XR chest 1V IMPRESSION: Suspect mild CHF.
--- NOTE | ~2023-07-03 | US_ITS ---
EXAMINATION: US ABDOMEN LIMITED CLINICAL INFORMATION: Cirrhosis and ascites. COMPARISON: None available. TECHNIQUE: Real-time imaging of the right upper quadrant abdominal viscera. FINDINGS: LIVER: The liver is enlarged measuring 17.1 cm. The liver contour is normal. Parenchymal echogenicity is coarse and echogenic . No focal hepatic lesion. There is no intrahepatic biliary duct dilatation seen. There is trace free fluid between the right and left hepatic lobes. FREE FLUID: Imaging through the 4 quadrants revealed scanty free fluid. US/US abdomen limited IMPRESSION: 1. Coarse echogenic liver without focal lesion. 2. Trace free fluid between the right and left hepatic lobes.
--- NOTE | 2023-07-03 09:11 | ED.GENADULT ---
HPI - General Adult General Chief complaint: General Medical Stated complaint: LIVER FAILURE Time Seen by Provider: 07/03/23 09:06 Source: patient, family (Sister) and EMS Mode of arrival: EMS Limitations: no limitations History of Present Illness HPI narrative: A 57-year-old man with history of alcohol use and dependence patient been sober for 1 month, MAKENNA/CKD, bariatric surgery, multiple hospitalization for hepatic encephalopathy brought in with his sister today by an ambulance for concern of right breast swelling and redness in the right upper abdomen. Patient otherwise is oriented, no fever, no chills, no nausea, no vomiting, no abdominal pain. Related Data Previous Rx's Medication Instructions Recorded walker #1 ea 09/21/22 multivitamin (Daily-Sherry tablet) 1 tab PO DAILY #90 tabs 06/07/23 omeprazole 40 mg capsule,delayed 40 mg PO BID@0630,1630 8 weeks 06/07/23 release #142 caps thiamine mononitrate (vit B1) 100 100 mg PO DAILY #90 tabs 06/07/23 mg tablet walker (Ultra-Light Rollator misc) #1 ea 06/07/23 lactulose 20 gram/30 mL oral 30 g (45 mL) PO TID #2,880 mL 06/20/23 solution furosemide 40 mg tablet 40 mg PO DAILY #90 tabs 06/28/23 Allergies Allergy/AdvReac Type Severity Reaction Status Date / Time No Known Allergies Allergy Verified 06/27/23 12:24 Review of Systems Review of Systems: All other systems are reviewed and are negative Constitutional: Reports as per HPI and Reports no additional constitutional complaints Eyes: Reports as per HPI and Reports no additional eye complaints Reports system reviewed and no additional complaints, except as documented Cardiovascular: Reports as per HPI and Reports no additional cardiovascular complaints Respiratory: Reports as per HPI and Reports no additional respiratory complaints Gastrointestinal: Reports as per HPI and Reports no additional gastrointestinal complaints Genitourinary: Reports no additional female genitourinary complaints Musculoskeletal: Reports no additional musculoskeletal complaints Skin/Breast: Reports system reviewed and no additional complaints, except as docu Psychiatric: Reports no additional psychiatric complaints Endocrine: Reports no additional endocrine complaints Hematologic/Lymphatic: Reports no additional hematologic/lymphatic complaints Allergic/Immunologic: Reports no additional allergic/immunologic complaints Reports system reviewed and no additional complaints, except as documented and Reports Abnormal speech present [facility] Past Medical History Medical History Anemia Cirrhosis Alcohol use disorder Liver lesion Substance use Anemia Hepatic steatosis Diarrhea resulting from infection of the bowel mucosa Chronic kidney disease Alcohol dependence Surgical History History of urologic surgery H/O varicose vein stripping S/P bariatric surgery Social History Social History Household Members: Family Household Members Other:: 2 Housing: Apartment Do you presently have visiting nurse or other home services: No Alcohol intake: former Comment: bed alarm does not work Patient Tobacco Use Status: Former Tobacco user Quit Date: 2022 Tobacco use type: Cigarette Substance Use Type: Crack/Cocaine and Marijuana Advance Directives: Yes Advance Directives on File: Yes Advance Directives Date on File: 06/08/23 service: No Current occupational status: employed Physical Exam ED Vital Signs: Vital Signs - 24 hr 07/03/23 08:58 07/03/23 10:26 07/03/23 12:14 Temperature 98.2 F 98.1 F 97.4 F Pulse Rate 64 63 68 Respiratory Rate 18 19 18 Blood Pressure 96/56 L 89/48 L 105/57 L Pulse Oximetry 94 100 97 Oxygen Delivery Method Room Air Room Air Room Air 07/03/23 13:58 Temperature 97.4 F Pulse Rate 59 Respiratory Rate 19 Blood Pressure 101/65 Pulse Oximetry 98 Oxygen Delivery Method Room Air BMI result Body Mass Index 29.7 Vital signs have been reviewed and appear to be correct. Blood pressure elevated. Heart rate normal. Respiratory rate normal. Temperature normal. Oxygen saturation normal. Appearance: Alert. Oriented X3. No acute distress. Head: Normal external exam. Normocephalic. Atraumatic. No Farah signs noted. No raccoon eyes noted Eyes: PERRLA. EOMI. Conjunctiva and sclera normal. Eyelids normal. ENT: TM's Normal. Pharynx normal. Uvula midline. Moist mucous membranes. No trismus noted. No drooling noted. No muffled voice noted. Neck: Normal inspection. Neck supple. FROM. No adenopathy. Thyroid Normal. No meningeal signs. No neck mass noted. CVS: Normal heart rate and rhythm. Heart sound normal. No murmurs noted. Pulses normal throughout. Respiratory: No respiratory distress. Painless inspiration. Breath sounds normal. No wheezes/rales/rhonchi noted. Chest nontender. No accessory muscle usage noted or decreased air movement noted. Abdomen: Soft and nontender. Bowel sounds normal in all 4 quadrants. No distention noted. No organomegaly noted. No visible injury noted. Back: No CVA tenderness. Full range of motion noted. Skin: 10 x 12 cm area of redness, hotness mostly affecting the lower part of the right breast (slight gynecomastia) and a right upper quadrant abdominal area, no fluctuation. Extremities: No lower extremity edema. Extremities exhibit normal range of motion. Extremities nontender. Neuro: Oriented X 3. Cranial nerve exam: II-XII are grossly intact No motor deficit. No sensory deficit. Reflexes normal. 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 Started on Zosyn and vancomycin. Hyperammonemia will administer extra dose of lactulose p.o.. Hyperkalemia 1 dose of Lokelma 10 mg. Chest x-ray is suspecting CHF, patient at this point is asymptomatic no SOB, no PND will adminster lasix and continue monitoring. Time: 13:41 Medications Administered Discontinued Medications Generic Name Dose Route Start Last Admin Trade Name Freq PRN Reason Stop Dose Admin Albumin Human 100 mls @ 100 mls/hr 07/03/23 10:27 07/03/23 12:19 Kedbumin 25 % IV 07/03/23 11:26 Infused ONCE ONE Infusion Piperacillin Sod/Tazobactam 50 mls @ 100 mls/hr 07/03/23 10:28 07/03/23 12:58 Sod 3.375 gm/ Sodium Chloride IV 07/03/23 10:57 Infused ONCE ONE Infusion Lactulose 60 gm 07/03/23 13:37 07/03/23 13:57 Lactulose 20 Gm/30 Ml Solution PO 07/03/23 13:38 60 gm ONCE ONE Administration Sodium Zirconium Cyclosilicate 10 gm 07/03/23 13:38 07/03/23 13:57 Sodium Zirconium Cyclosilicate 10 Gm Powd.Pack PO 07/03/23 13:39 10 gm ONCE ONE Administration Medical Decision Making Differential Diagnosis Differential Diagnoses: The differential diagnosis associated with the presentation includes (Hepatic encephalopathy, hyperammonemia, pneumonia, pneumothorax, cellulitis, electrolyte derangement, severe anemia.) Admission/Observation Consideration of admission/observation: Escalation of care including admission/observation considered Consult Healthcare Provider Management of the patient was discussed with: Hospitalist (tashi) Lab Data MDM Lab Attestation statement: I reviewed the patient's lab results. 07/03/23 09:16 07/03/23 09:16 Labs: Lab Results 07/03/23 07/03/23 Range/Units 09:16 09:18 WBC 5.9 (4.8-10.8) X10*3/uL RBC 2.69 L (4.60-5.80) X10*6/uL Hgb 8.1 L (14.0-18.0) g/dl Hct 23.9 L (42.0-52.0) % MCV 88.8 (80.0-98.0) fL MCH 30.1 (27.0-33.0) pg MCHC 33.9 (31.0-36.0) g/dl RDW 17.2 H (11.0-16.0) % Plt Count 159 L (160-400) X10*3/uL MPV 11.0 (9.4-12.4) fL Immature Gran % (Auto) 0.2 (0.0-0.4) % Neut % (Auto) 56.5 (45-73) % Lymph % (Auto) 24.7 (20-40) % [place] % (Auto) 12.5 H (2-11) % Eos % (Auto) 5.4 H (0-4) % Baso % (Auto) 0.7 (0-2) % Lymph # (Auto) 1.5 (1.2-4.9) X10*3/uL [place] # (Auto) 0.7 (0.1-1.2) X10*3/uL Eos # (Auto) 0.3 (0.0-0.4) X10*3/uL Baso # (Auto) 0.0 (0.0-0.2) X10*3/uL Abs Immat Gran (auto) 0.01 (0.00-0.03) X10*3/uL Absolute Neuts (auto) 3.4 (2.0-8.3) x10*3/uL Absolute Nucleated RBC 0.000 (0.0-0.012) X10*3/uL Nucleated RBC % (auto) 0.0 (0.0-0.2) /100WBC Hold Purple Top SEE NOTE Hold Blue Top SEE NOTE Sodium 135 (135-145) mmol/L Potassium 5.6 H (3.3-5.1) mmol/L Chloride 111 H (96-108) mmol/L Carbon Dioxide 20 L (22-29) mmol/L Anion Gap 10 L (12-20) BUN 14 (9-16) mg/dL Creatinine 1.24 (0.5-1.4) mg/dL Estim Creat Clear Calc 82.1 Estimated GFR > 60 Random Glucose 82 (60-115) mg/dL Lactic Acid 1.2 (0.5-2.0) mmol/L Calcium 7.8 L D (8.4-10.2) mg/dL Total Bilirubin 1.9 H (0.0-1.0) mg/dL Direct Bilirubin 0.9 H (0.0-0.5) mg/dL AST 86 H (5-37) U/L ALT 47 H (0-40) U/L Alkaline Phosphatase 142 H (39-117) U/L Ammonia 111 H (13-55) umol/L Total Protein 7.0 (6.5-8.0) g/dL Albumin 2.4 L (3.5-5.0) g/dL Independent Interpretation I performed an independent interpretation of an: Plain X-Ray (Suspect CHF.) Radiology Impression Discussion of test interpretation with radiology: I have reviewed the radiologist's reading. Chronic Conditions Patient?s care impacted by: Other (Hepatic liver cirrhosis, chronic hyperammonemia.) Discharge Plan Discharge Clinical Impression: Hyperammonemia, Acute hyperkalemia, Abdominal wall cellulitis Patient Disposition: Admitted As Inpatient
[2023-07-03 09:19] LABS: MANUAL DIFF FLAG NO
[2023-07-03 09:20] LABS: Basophils Percent Auto 0.7 % (0-2); Eosinophils Absolute Auto 0.3 X10*3/uL (0.0-0.4); Eosinophils Percent Auto 5.4 % (0-4); Hematocrit 23.9 % (42.0-52.0); Hemoglobin 8.1 g/dl (14.0-18.0); Imm Gran Abs Auto 0.01 X10*3/uL (0.00-0.03); Imm Gran Pct Auto 0.2 % (0.0-0.4); Lymphocytes Absolute Auto 1.5 X10*3/uL (1.2-4.9); Lymphocytes Percent Auto 24.7 % (20-40); Mean Corpuscular HGB Conc 33.9 g/dl (31.0-36.0); Mean Corpuscular Hemoglobin 30.1 pg (27.0-33.0); Mean Corpuscular Volume 88.8 fL (80.0-98.0); Monocytes Absolute Auto 0.7 X10*3/uL (0.1-1.2); Monocytes Percent Auto 12.5 % (2-11); Neutrophils Absolute Auto 3.4 x10*3/uL (2.0-8.3); Neutrophils Percent Auto 56.5 % (45-73); Platelet Count 159 X10*3/uL (160-400); Red Blood Count 2.69 X10*6/uL (4.60-5.80); Red Cell Distribution Width 17.2 % (11.0-16.0); White Blood Count 5.9 X10*3/uL (4.8-10.8)
[2023-07-03 09:31] LABS: Ammonia 111 umol/L (13-55)
[2023-07-03 09:35] LABS: Lactic Acid 1.2 mmol/L (0.5-2.0)
[2023-07-03 09:42] LABS: Alanine Aminotransferase 47 U/L (0-40); Albumin Level 2.4 g/dL (3.5-5.0); Alkaline Phosphatase 142 U/L (39-117); Anion Gap 10 (12-20); Aspartate Amino Transferase 86 U/L (5-37); Bilirubin Direct 0.9 mg/dL (0.0-0.5); Bilirubin Total 1.9 mg/dL (0.0-1.0); Blood Urea Nitrogen 14 mg/dL (9-16); Calcium 7.8 mg/dL (8.4-10.2); Carbon Dioxide 20 mmol/L (22-29); Chloride 111 mmol/L (96-108); Creatinine Clr Calc Pharmacy 82.1; Estimated Glomerular Filt Rate > 60; Glucose Random 82 mg/dL (60-115); Potassium 5.6 mmol/L (3.3-5.1); Sodium 135 mmol/L (135-145)
--- NOTE | 2023-07-03 10:22 | PC.NURSE ---
patient presents with sister at bedside with right sided swelling to right breast/arm pit, right abd. patient skin is red and hot to touch. patient states it began last night/this morning. patient is alert and oriented x3, IV line palced in the left forearm #20, labs and cultures done. patient respirations equal and unlabored, patients skin is dry, scarred but intact, patient is jaundiced.
[2023-07-03] MEDS: Albumin Human 25 % 100 ML IV ×3 (10:37→17:13)
[2023-07-03] MEDS: Piperacillin Sodium/Tazobactam 3.375 GM in 0.9 % Sodium Chloride 50 ML IV (12:18)
--- NOTE | 2023-07-03 13:41 | PHA.MEDREC ---
Pharmacy Consult ? Medication Reconciliation Pharmacy has completed the medication reconciliation. spoke with family member at bedside to confirm medications.
[2023-07-03] MEDS: Sodium Zirconium Cyclosilicate 10 GM POWD.PACK PO (13:57)
[2023-07-03] MEDS: Lactulose 20 GM/30 ML SOLUTION 60 GM PO (13:57)
[2023-07-03] MEDS: Furosemide 20 MG/2 ML VIAL IVPUSH (14:48)
--- NOTE | 2023-07-03 15:27 | P.HPHOSP_ITS ---
History of Present Illness Date of Service: 07/03/23 Chief Complaint: swelling 57-year-old man with history of alcoholic liver cirrhosis presented to the ER with complaints of right-sided breast swelling all the way to his abdomen. Denied fever, chills, nausea, vomiting. He is on lactulose and frequently has loose stools. He reported some sleepiness but no lethargy. He has been sober for over 1 month. Chest x-ray in the ER shows suspected mild CHF. No fever leukocytosis noted, potassium 5.6, given a dose of Lokelma in the ER. Chronic transaminitis, ammonia 111. Patient given albumin, Zosyn, lactulose, Lokelma and Lasix in the ER. He will be admitted for further management and treatment of edema and hyperammonemia. Review of Systems 2 Review of Systems: Denies any recent fever chills or decrease in appetite respiratory denies any shortness of breath or cough, reported swelling to right side chest cardiovascular denied chest pain gastrointestinal denies any dysphagia abdominal pain nausea vomiting or diarrhea, reported swelling to right side abdomen genitourinary denies any dysuria frequency or hematuria musculoskeletal denies any joint pain or swelling neuropsych denies any weakness or seizures all other systems reviewed are negative [facility] Medical History Anemia Cirrhosis Alcohol use disorder Liver lesion Substance use Anemia Hepatic steatosis Diarrhea resulting from infection of the bowel mucosa Chronic kidney disease Alcohol dependence Surgical History History of urologic surgery H/O varicose vein stripping S/P bariatric surgery Social History Household Members: Family Household Members Other:: 2 Housing: Apartment Do you presently have visiting nurse or other home services: No Alcohol intake: former Comment: bed alarm does not work Patient Tobacco Use Status: Former Tobacco user Quit Date: 2022 Tobacco use type: Cigarette Substance Use Type: Crack/Cocaine and Marijuana Advance Directives: Yes Advance Directives on File: Yes Advance Directives Date on File: 06/08/23 service: No Current occupational status: employed Meds Allergies Allergy/AdvReac Type Severity Reaction Status Date / Time No Known Allergies Allergy Verified 06/27/23 12:24 Active Medications: Current Medications Furosemide (Furosemide 40 Mg Tablet) 40 mg PO DAILY [facility]; Protocol Lactulose (Lactulose 20 Gm/30 Ml Solution) 30 gm PO TID [facility] Multivitamins/Vitamin C (Multivitamin Tablet) 1 tab PO DAILY [facility] Omeprazole (Omeprazole 40 Mg Capsule.Dr) 40 mg PO BID@0630,1630 [facility] Ondansetron HCl (Ondansetron Hcl 4 Mg/2 Ml Vial) 4 mg IVPUSH Q8H PRN PRN Reason: Nausea and Vomiting Sodium Chloride (0.9 % Sodium Chloride Flush 3 Ml Syringe) 3 ml IVFLUSH QSHIFT VALERIE Thiamine HCl (Thiamine Hcl 100 Mg Tablet) 100 mg PO DAILY [facility] Physical Exam 2 Vital Signs and Narrative: Vital Signs: Last Vital Signs Temp 97.4 F 07/03/23 13:58 Pulse 59 07/03/23 13:58 Resp 19 07/03/23 13:58 BP 101/65 07/03/23 13:58 Pulse Ox 98 07/03/23 13:58 O2 Del Method Room Air 07/03/23 13:58 BMI result Body Mass Index 29.7 Appearing in no acute distress head is normocephalic atraumatic eyes pupils are PERRLA sclera is anicteric mouth throat mucous membranes are intact and moist neck is supple no lymphadenopathy, no JVD noted lung sounds are clear to auscultation heart regular rate rhythm, clear S1, S2 positive bowel sounds, abdomen is soft, nontender neuro patient is alert x3, no focal deficits Edema to right side of the abd up to right breast Results Labs 07/03/23 09:16 07/03/23 09:16 Labs: Laboratory Results - last 24 hr 07/03/23 07/03/23 09:16 09:18 MCV 88.8 MCH 30.1 MCHC 33.9 RDW 17.2 H Plt Count 159 L MPV 11.0 Immature Gran % (Auto) 0.2 Neut % (Auto) 56.5 Lymph % (Auto) 24.7 [place] % (Auto) 12.5 H Eos % (Auto) 5.4 H Baso % (Auto) 0.7 Lymph # (Auto) 1.5 [place] # (Auto) 0.7 Eos # (Auto) 0.3 Baso # (Auto) 0.0 Abs Immat Gran (auto) 0.01 Absolute Neuts (auto) 3.4 Absolute Nucleated RBC 0.000 Nucleated RBC % (auto) 0.0 Hold Purple Top SEE NOTE Hold Blue Top SEE NOTE Anion Gap 10 L Estim Creat Clear Calc 82.1 Estimated GFR > 60 Random Glucose 82 Lactic Acid 1.2 Calcium 7.8 L D Total Bilirubin 1.9 H Direct Bilirubin 0.9 H AST 86 H ALT 47 H Alkaline Phosphatase 142 H Ammonia 111 H Total Protein 7.0 Albumin 2.4 L Imaging Radiologist's Impressions: Impressions Chest X-Ray 07/03/23 11:30 IMPRESSION: Suspect mild CHF. Assessment and Plan (1) Abdominal wall cellulitis: Status: Acute Plan 57 year old man admitted with edema, hyperkalemia and hyperammonemia with history of alcoholic liver cirrhosis Hyperammonemia Secondary to history of liver cirrhosis Continue lactulose 30 g t.i.d. GI consultation Monitor mental status closely Edema versus cellulitis Chronic right lower abdominal edema now up to the right breast area No fever, leukocytosis, erythema Likely related to fluid balance Will check BNP Id consultation Albumin 2.4, give IV albumin and Lasix Hyperkalemia Naomi Follow BMP closely Coagulopathy Secondary to liver disease No signs of bleeding Hypoalbuminemia Secondary to liver disease and malnutrition Give albumin History of alcohol abuse Reports being sober for 1 month Continue thiamine, multivitamin, ppi DVT prophylaxis with mechanical compression boots Full code Patient required least 48 hours of treatment for hyperammonemia and edema requiring IV albumin and IV Lasix. Due to patient's history of alcoholic liver cirrhosis his risk of decompensation is high therefore this can not be done at a lesser acute setting. Quality Stroke Does the patient have a stroke diagnosis?: No VTE Prior VTE?: No VTE Risk Level:: Medical - moderate - high VTE Device Contraindication: N/A - Device Ordered VTE Drug Contraindication: Treatment Not Indicated
[2023-07-03] MEDS: Lactulose 20 GM/30 ML SOLUTION 30 GM PO ×2 (16:12→20:58)
[2023-07-03 16:14] LABS: B Type Natriuretic Peptide 309 pg/mL (<100)
[2023-07-03] MEDS: Omeprazole 40 MG CAPSULE.DR PO (16:14)
[2023-07-03] MEDS: 0.9 % Sodium Chloride Flush 3 ML SYRINGE IVFLUSH (20:58)
[2023-07-03] MEDS: Melatonin 3 MG TABLET 6 MG PO (21:23)
[2023-07-04] VITALS (12 sets, daily range): BP systolic 88–112; BP diastolic 51–63; PULSE 65–75; RESP 18–22; TEMP 36.6–37.3; O2SAT 94–96
[2023-07-04 02:30] LABS: Appearance Urine Clear; Color Urine Yellow; Glucose Urine UA Negative (Negative); Leukocyte Esterase Urine Negative (Negative); Nitrite Urine Negative (Negative); Specific Gravity - Urine 1.015 (1.005-1.025); Urine Blood Negative (Negative); Urine Ketones Negative (Negative); Urine Protein Negative (Neg-Trace)
[2023-07-04] MEDS: Omeprazole 40 MG CAPSULE.DR PO ×2 (04:55→16:37)
[2023-07-04 06:38] LABS: MANUAL DIFF FLAG NO
[2023-07-04 06:48] LABS: Basophils Percent Auto 0.6 % (0-2); Eosinophils Absolute Auto 0.2 X10*3/uL (0.0-0.4); Eosinophils Percent Auto 4.4 % (0-4); Imm Gran Abs Auto 0.03 X10*3/uL (0.00-0.03); Imm Gran Pct Auto 0.6 % (0.0-0.4); Lymphocytes Absolute Auto 1.3 X10*3/uL (1.2-4.9); Lymphocytes Percent Auto 25.3 % (20-40); Mean Corpuscular HGB Conc 35.2 g/dl (31.0-36.0); Mean Corpuscular Hemoglobin 30.5 pg (27.0-33.0); Mean Corpuscular Volume 86.5 fL (80.0-98.0); Mean Platelet Volume 10.5 fL (9.4-12.4); Monocytes Absolute Auto 0.8 X10*3/uL (0.1-1.2); Monocytes Percent Auto 15.6 % (2-11); Neutrophils Absolute Auto 2.7 x10*3/uL (2.0-8.3); Neutrophils Percent Auto 53.5 % (45-73); Platelet Count 125 X10*3/uL (160-400); Red Blood Count 2.23 X10*6/uL (4.60-5.80); Red Cell Distribution Width 16.8 % (11.0-16.0)
[2023-07-04 07:02] LABS: Alanine Aminotransferase 34 U/L (0-40); Albumin Level 2.6 g/dL (3.5-5.0); Alkaline Phosphatase 115 U/L (39-117); Anion Gap 10 (12-20); Aspartate Amino Transferase 62 U/L (5-37); Bilirubin Total 1.6 mg/dL (0.0-1.0); Blood Urea Nitrogen 15 mg/dL (9-16); Calcium 8.1 mg/dL (8.4-10.2); Carbon Dioxide 21 mmol/L (22-29); Chloride 110 mmol/L (96-108); Creatinine Clr Calc Pharmacy 79.9; Estimated Glomerular Filt Rate 59; Glucose Random 86 mg/dL (60-115); Magnesium 1.7 mg/dL (1.6-2.6); Potassium 4.9 mmol/L (3.3-5.1); Sodium 136 mmol/L (135-145); Total Protein 6.4 g/dL (6.5-8.0)
[2023-07-04 07:47] LABS: Hematocrit 19.3 % (42.0-52.0); Hemoglobin 6.8 g/dl (14.0-18.0)
--- NOTE | 2023-07-04 09:23 | P.PNIM_ITS ---
Subjective Subjective Date of Service: 07/04/23 Interval History: Follow up anemia, edema no pain, nausea or vomiting reported no rectal bleeding Review of Systems Review of Systems: Yes all other systems are reviewed and are negative Constitutional Constitutional: Denies chills and Denies fever(s) Cardiovascular Cardiovascular: Denies chest pain, Denies palpitations and Denies dyspnea Respiratory Respiratory: Denies cough and Denies dyspnea Gastrointestinal Gastrointestinal: Denies abdominal pain Endocrine Endocrine: Denies palpitations Physical Exam 2 Vital Signs: Vital Signs: Last Vital Signs Temp 98.2 F 07/04/23 08:00 Pulse 68 07/04/23 08:25 Resp 20 07/04/23 08:00 BP 102/57 L 07/04/23 08:25 Pulse Ox 94 07/04/23 08:00 O2 Del Method Room Air 07/04/23 08:00 BMI result Body Mass Index 29.0 Appearing in no acute distress lung sounds are clear to auscultation heart regular rate rhythm, clear S1, S2 positive bowel sounds, abdomen is soft, nontender neuro patient is alert x3, no focal deficits Objective Data Active Medications Furosemide (Furosemide 40 Mg Tablet) 40 mg PO DAILY [facility]; Protocol Lactulose (Lactulose 20 Gm/30 Ml Solution) 30 gm PO TID [facility] Last Admin: 07/03/23 20:58 Dose: 30 gm Documented By: NIRALI Melatonin (Melatonin 3 Mg Tablet) 6 mg PO BEDTIME PRN PRN Reason: Insomnia Last Admin: 07/03/23 21:23 Dose: 6 mg Documented By: NIRALI Comments: pt requested melatonin to sleep Multivitamins/Vitamin C (Multivitamin Tablet) 1 tab PO DAILY [facility] Omeprazole (Omeprazole 40 Mg Capsule.) 40 mg PO BID@0630,1630 [facility] Last Admin: 07/04/23 04:55 Dose: 40 mg Documented By: NIRALI Ondansetron HCl (Ondansetron Hcl 4 Mg/2 Ml Vial) 4 mg IVPUSH Q8H PRN PRN Reason: Nausea and Vomiting Sodium Chloride (0.9 % Sodium Chloride Flush 3 Ml Syringe) 3 ml IVFLUSH QSHIFT [facility] Last Admin: 07/03/23 20:58 Dose: 3 ml Documented By: NIRALI Thiamine HCl (Thiamine Hcl 100 Mg Tablet) 100 mg PO DAILY [facility] Labs 07/04/23 06:17 07/04/23 06:17 Labs: Laboratory Results - last 24 hr 07/03/23 07/03/23 07/03/23 09:16 09:18 15:38 MCV MCH MCHC RDW Plt Count MPV Immature Gran % (Auto) Neut % (Auto) Lymph % (Auto) [place] % (Auto) Eos % (Auto) Baso % (Auto) Lymph # (Auto) [place] # (Auto) Eos # (Auto) Baso # (Auto) Abs Immat Gran (auto) Absolute Neuts (auto) Absolute Nucleated RBC Nucleated RBC % (auto) Hold Purple Top SEE NOTE Hold Blue Top SEE NOTE Anion Gap 10 L Estim Creat Clear Calc 82.1 Estimated GFR > 60 Random Glucose 82 Lactic Acid 1.2 Calcium 7.8 L D Magnesium Total Bilirubin 1.9 H Direct Bilirubin 0.9 H AST 86 H ALT 47 H Alkaline Phosphatase 142 H Ammonia 111 H B-Natriuretic Peptide 309 H Total Protein 7.0 Albumin 2.4 L Urine Color Urine Appearance Urine pH Ur Specific [place] Urine Protein Urine Glucose (UA) Urine Ketones Urine Blood Urine Nitrite Ur Leukocyte Esterase Blood Type Antibody Screen Crossmatch 07/04/23 07/04/23 07/04/23 01:02 06:17 08:18 MCV 86.5 MCH 30.5 MCHC 35.2 RDW 16.8 H Plt Count 125 L MPV 10.5 Immature Gran % (Auto) 0.6 H Neut % (Auto) 53.5 Lymph % (Auto) 25.3 [place] % (Auto) 15.6 H Eos % (Auto) 4.4 H Baso % (Auto) 0.6 Lymph # (Auto) 1.3 [place] # (Auto) 0.8 Eos # (Auto) 0.2 Baso # (Auto) 0.0 Abs Immat Gran (auto) 0.03 Absolute Neuts (auto) 2.7 Absolute Nucleated RBC 0.000 Nucleated RBC % (auto) 0.0 Hold Purple Top Hold Blue Top Anion Gap 10 L Estim Creat Clear Calc 79.9 Estimated GFR 59 Random Glucose 86 Lactic Acid Calcium 8.1 L Magnesium 1.7 Total Bilirubin 1.6 H Direct Bilirubin AST 62 H ALT 34 Alkaline Phosphatase 115 Ammonia B-Natriuretic Peptide Total Protein 6.4 L Albumin 2.6 L Urine Color Yellow Urine Appearance Clear Urine pH 7.0 Ur Specific [place] 1.015 Urine Protein Negative Urine Glucose (UA) Negative Urine Ketones Negative Urine Blood Negative Urine Nitrite Negative Ur Leukocyte Esterase Negative Blood Type O Positive Antibody Screen NEGATIVE Crossmatch See Detail Assessment and Plan (1) Acute hepatic encephalopathy: Status: Acute Plan 57 year old man admitted with edema, hyperkalemia and hyperammonemia with history of alcoholic liver cirrhosis Acute on chronic anemia, unspecified No active bleeding hx of liver cirrhosis HH this morning 6.8/19.3 2 units PRBC ordered check HH post tx GI consult pending Hyperammonemia Secondary to history of liver cirrhosis Continue lactulose 30 g t.i.d. GI consultation pending Monitor mental status closely Edema versus cellulitis Chronic right lower abdominal edema now up to the right breast area No fever, leukocytosis, erythema Likely related to fluid balance Will check BNP Id consultation Albumin 2.4, given IV albumin and Lasix Hyperkalemia Lokelma Follow BMP closely Coagulopathy Secondary to liver disease No signs of bleeding Hypoalbuminemia Secondary to liver disease and malnutrition s/p albumin History of alcohol abuse Reports being sober for 1 month Continue thiamine, multivitamin, ppi DVT prophylaxis with mechanical compression boots attending Dr. Navarro Full code continue hospital stay for treatment of hyperammonemia and edema requiring IV albumin and IV Lasix. Due to patient's history of alcoholic liver cirrhosis his risk of decompensation is high therefore this can not be done at a lesser acute setting. Quality Stroke Does the patient have a stroke diagnosis?: No VTE Prior VTE?: No VTE Risk Level:: Medical - moderate - high VTE Device Contraindication: N/A - Device Ordered VTE Drug Contraindication: Treatment Not Indicated
[2023-07-04] MEDS: Multivitamin TABLET 1 TAB PO (09:41)
[2023-07-04] MEDS: Lactulose 20 GM/30 ML SOLUTION 30 GM PO ×3 (09:42→22:23)
[2023-07-04] MEDS: Thiamine HCL 100 MG TABLET PO (09:42)
[2023-07-04] MEDS: 0.9 % Sodium Chloride Flush 3 ML SYRINGE IVFLUSH ×2 (09:44→16:37)
--- NOTE | 2023-07-04 10:46 | PM.GICN ---
History of Present Illness Data of Consult Service Date: 07/04/23 Requesting physician: Sophie Tejada Primary Care Provider: Arin eNlson MD HPI Reason for consult: encephalopathy, anemia This is a 57-year-old gentleman with past medical history of polysubstance use disorder including alcohol and cocaine, who was brought to the hospital by his sister for increasing abdominal wall and chest wall swelling. Pt was recently admitted to the hospital twice (anemia, encephalopathy). This time, pt had progressive swelling on the R side of his abdomen that started to extend up to his R side of the chest. This was nto assoc with chest pain, shortnrss of breath, N or V. In the ER he was noted to have VSS. Labs significant for worsening anemia since admission. Chem 7 with MAKENNA Cr upto 1.2 from baseline 0.9 with hyperkalemia. He is currently admitted for treatment of cellulitis as well as hepatic encephalopathy. Reports chest wall swelling is better since receiving diuretics in ER. Review of Systems Review of Systems: Yes all other systems are reviewed and are negative PMFSH Past Medical History Medical History Anemia Cirrhosis Alcohol use disorder Liver lesion Substance use Anemia Hepatic steatosis Diarrhea resulting from infection of the bowel mucosa Chronic kidney disease Alcohol dependence Surgical History Surgical History History of urologic surgery H/O varicose vein stripping S/P bariatric surgery Social History Social History Household Members: Family Household Members Other:: 2 Housing: Apartment Do you presently have visiting nurse or other home services: No Alcohol intake: former Comment: bed alarm does not work Patient Tobacco Use Status: Former Tobacco user Quit Date: 2022 Tobacco use type: Cigarette Use of substances other than those prescribed or required for medical reasons: No Substance Use Type: Crack/Cocaine and Marijuana Currently Displaying Signs/Symptoms of Drug Intoxication Withdrawal: No Have you been hit, kicked, punched, or otherwise hurt by someone within the past year? If so, by whom?: No Do you feel safe in your current relationship?: No Current Relationship Is there a partner from a previous relationship who is making you feel unsafe now?: No Are you made to feel afraid or neglected: No Advance Directives: Yes Advance Directives on File: Yes Advance Directives Date on File: 06/08/23 Do you have thoughts of harming others: None Do you have a plan to hurt others: No Plan Recently lost weight without trying: No service: No Current occupational status: employed Meds Allergies Allergy/AdvReac Type Severity Reaction Status Date / Time No Known Allergies Allergy Verified 06/27/23 12:24 Active Medications: Current Medications Furosemide (Furosemide 40 Mg Tablet) 40 mg PO DAILY REPLACED BY [facility]; Protocol Last Admin: 07/04/23 09:46 Dose: Not Given Lactulose (Lactulose 20 Gm/30 Ml Solution) 30 gm PO TID REPLACED BY [facility] Last Admin: 07/04/23 09:42 Dose: 30 gm Melatonin (Melatonin 3 Mg Tablet) 6 mg PO BEDTIME PRN PRN Reason: Insomnia Last Admin: 07/03/23 21:23 Dose: 6 mg Multivitamins/Vitamin C (Multivitamin Tablet) 1 tab PO DAILY REPLACED BY [facility] Last Admin: 07/04/23 09:41 Dose: 1 tab Omeprazole (Omeprazole 40 Mg Capsule.Dr) 40 mg PO BID@0630,1630 REPLACED BY [facility] Last Admin: 07/04/23 04:55 Dose: 40 mg Ondansetron HCl (Ondansetron Hcl 4 Mg/2 Ml Vial) 4 mg IVPUSH Q8H PRN PRN Reason: Nausea and Vomiting Sodium Chloride (0.9 % Sodium Chloride Flush 3 Ml Syringe) 3 ml IVFLUSH QSHIFT REPLACED BY [facility] Last Admin: 07/04/23 09:44 Dose: 3 ml Thiamine HCl (Thiamine Hcl 100 Mg Tablet) 100 mg PO DAILY REPLACED BY [facility] Last Admin: 07/04/23 09:42 Dose: 100 mg Physical Exam Vital Signs: Vital Signs: Last Vital Signs Temp 98.2 F 07/04/23 08:00 Pulse 68 07/04/23 08:25 Resp 20 07/04/23 08:00 BP 102/57 L 07/04/23 08:25 Pulse Ox 94 07/04/23 08:00 O2 Del Method Room Air 07/04/23 08:00 BMI result Body Mass Index 29.0 Gen Appear: NAD, undernourished HEENT: bitemporal wasting noted Chest: CTA CVS: Regular S1/S2 no murmurs Abd: soft, nontender, distended, bowel sounds active Ext: + peripheral edema bilaterally Neuro: A/Ox3, + asterixis Results Labs 07/04/23 15:06 07/04/23 06:17 Labs: Short CBC 07/04/23 Range/Units 06:17 WBC 5.0 (4.8-10.8) X10*3/uL Hgb 6.8 L* (14.0-18.0) g/dl Hct 19.3 L* (42.0-52.0) % Plt Count 125 L (160-400) X10*3/uL BMP 07/04/23 06:17 Sodium 136 Potassium 4.9 Chloride 110 H Carbon Dioxide 21 L BUN 15 Creatinine 1.26 Calcium 8.1 L Liver Function 07/04/23 Range/Units 06:17 Total Bilirubin 1.6 H (0.0-1.0) mg/dL AST 62 H (5-37) U/L ALT 34 (0-40) U/L Alkaline Phosphatase 115 (39-117) U/L Albumin 2.6 L (3.5-5.0) g/dL Urine 07/04/23 Range/Units 01:02 Urine Color Yellow Urine Appearance Clear Urine pH 7.0 (5.0-9.0) Ur Specific [place] 1.015 (1.005-1.025) Urine Protein Negative (Neg-Trace) mg/dL Urine Glucose (UA) Negative (Negative) mg/dL Assessment and Plan (1) Abdominal wall cellulitis: Status: Acute (2) Anemia: Status: Acute (3) Decompensated hepatic cirrhosis: Status: Acute (4) Acute hepatic encephalopathy: Status: Acute (5) Acute kidney injury: Status: Resolved Plan 1. Decomp cirrhosis from etOH use 2. Abd wall cellulitis 3. Anemia 4. MAKENNA EtOH use in early remission, sober since May. Exam consistent with ascites as well as HE (though HE better than what it was last week when seen in office). Will recommend US Abd and if ascites present should diagnostic para to rule out SBP. For anemia, will need to r/o GIB in this cirrhotic. Agree with blood transfusion. Renal function declined from baseline of Cr 0.9. Would hold further diuretics and give IV Alb. Recommendations: - Check US Abd - Diagnostic para if ascites present - pls send for cell count, culture, cytology, alb and total protein - Hold diuretics - Albumin 25% 100 ml QID today - Add Rifaximin 550 BID for encephalopathy - EGD tentatively tmrw to r/o UGIB from varices vs PHG vs GAVE vs PUD - CBC and INR ordered for this afternoon. If INR >1.5, pls give IV Vitamin K 10mg once. Thank you for allowing me to participate in his care. Please do not hesitate to reach out for questions or concerns. Procedures Date of Service Date of Service: 07/04/23
[2023-07-04] MEDS: Albumin Human 25 % 100 ML IV ×2 (13:33→16:38)
[2023-07-04] MEDS: rifAXIMin 550 MG TABLET PO ×2 (13:33→22:23)
[2023-07-04 15:28] LABS: Hemoglobin 7.2 g/dl (14.0-18.0); Mean Corpuscular HGB Conc 34.8 g/dl (31.0-36.0); Mean Corpuscular Hemoglobin 30.4 pg (27.0-33.0); Mean Corpuscular Volume 87.3 fL (80.0-98.0); Mean Platelet Volume 10.4 fL (9.4-12.4); Platelet Count 113 X10*3/uL (160-400); Red Blood Count 2.37 X10*6/uL (4.60-5.80); Red Cell Distribution Width 16.9 % (11.0-16.0); White Blood Count 5.3 X10*3/uL (4.8-10.8)
--- NOTE | 2023-07-04 15:28 | MHC.CM.PN ---
Male 57 DX Edema Anemia He lives with his sister, Rubi OVALLES. He requires assist with adls. He uses a walker. His insurance does not have a SNF benefit. He has a new PCP appt in July. He does not qualify for home services; because he has not yet seen his PCP. DP home with family support and transport.
[2023-07-04 15:33] LABS: Hematocrit 20.7 % (42.0-52.0)
[2023-07-04] MEDS: Melatonin 3 MG TABLET 6 MG PO (22:23)
[2023-07-05] VITALS (11 sets, daily range): BP systolic 91–124; BP diastolic 45–74; PULSE 59–78; RESP 16–22; TEMP 36.4–37.2; O2SAT 95–99
[2023-07-05] MEDS: 0.9 % Sodium Chloride Flush 3 ML SYRINGE IVFLUSH ×4 (01:00→19:42)
[2023-07-05] MEDS: Albumin Human 25 % 100 ML IV ×2 (01:01→06:30)
[2023-07-05] MEDS: Omeprazole 40 MG CAPSULE.DR PO ×2 (06:30→16:17)
[2023-07-05 07:25] LABS: Hematocrit 22.2 % (42.0-52.0); Hemoglobin 7.8 g/dl (14.0-18.0)
[2023-07-05 07:30] LABS: INTERNATIONAL NORM RATIO 1.7 (0.9-1.1)
[2023-07-05] MEDS: rifAXIMin 550 MG TABLET PO ×2 (07:39→19:40)
[2023-07-05] MEDS: Thiamine HCL 100 MG TABLET PO (07:39)
[2023-07-05] MEDS: Multivitamin TABLET 1 TAB PO (07:39)
[2023-07-05] MEDS: Lactulose 20 GM/30 ML SOLUTION 30 GM PO ×3 (07:39→19:40)
[2023-07-05 07:52] LABS: Anion Gap 10 (12-20); Blood Urea Nitrogen 13 mg/dL (9-16); Calcium 8.1 mg/dL (8.4-10.2); Carbon Dioxide 19 mmol/L (22-29); Chloride 110 mmol/L (96-108); Creatinine Clr Calc Pharmacy 110.7; Estimated Glomerular Filt Rate > 60; Glucose Random 83 mg/dL (60-115); Sodium 134 mmol/L (135-145)
--- NOTE | 2023-07-05 09:45 | P.PNIM_ITS ---
Subjective Subjective Date of Service: 07/05/23 Interval History: Follow up anemia, edema no pain, nausea or vomiting reported no rectal bleeding Review of Systems Review of Systems: Yes all other systems are reviewed and are negative Constitutional Constitutional: Denies chills and Denies fever(s) Cardiovascular Cardiovascular: Denies chest pain, Denies palpitations and Denies dyspnea Respiratory Respiratory: Denies cough and Denies dyspnea Gastrointestinal Gastrointestinal: Denies abdominal pain Endocrine Endocrine: Denies palpitations Physical Exam 2 Vital Signs: Vital Signs: Last Vital Signs Temp 98.5 F 07/05/23 07:32 Pulse 78 07/05/23 07:32 Resp 20 07/05/23 07:32 BP 108/57 L 07/05/23 07:32 Pulse Ox 96 07/05/23 07:32 O2 Del Method Room Air 07/05/23 07:32 BMI result Body Mass Index 29.0 Appearing in no acute distress lung sounds are clear to auscultation heart regular rate rhythm, clear S1, S2 positive bowel sounds, abdomen is soft, nontender neuro patient is alert x3, no focal deficits Objective Data Active Medications Furosemide (Furosemide 40 Mg Tablet) 40 mg PO DAILY [facility]; Protocol Last Admin: 07/04/23 09:46 Dose: Not Given Documented By: GRAY Non-Admin Reason: Decreased Blood Pressure Lactulose (Lactulose 20 Gm/30 Ml Solution) 30 gm PO TID [facility] Last Admin: 07/05/23 07:39 Dose: 30 gm Documented By: AUBREY Melatonin (Melatonin 3 Mg Tablet) 6 mg PO BEDTIME PRN PRN Reason: Insomnia Last Admin: 07/04/23 22:23 Dose: 6 mg Documented By: JABARI Multivitamins/Vitamin C (Multivitamin Tablet) 1 tab PO DAILY [facility] Last Admin: 07/05/23 07:39 Dose: 1 tab Documented By: AUBREY Omeprazole (Omeprazole 40 Mg Capsule.) 40 mg PO BID@0630,1630 [facility] Last Admin: 07/05/23 06:30 Dose: 40 mg Documented By: JABARI Ondansetron HCl (Ondansetron Hcl 4 Mg/2 Ml Vial) 4 mg IVPUSH Q8H PRN PRN Reason: Nausea and Vomiting Rifaximin (Rifaximin 550 Mg Tablet) 550 mg PO BID [facility] Last Admin: 07/05/23 07:39 Dose: 550 mg Documented By: AUBREY Sodium Chloride (0.9 % Sodium Chloride Flush 3 Ml Syringe) 3 ml IVFLUSH QSHIFT [facility] Last Admin: 07/05/23 07:39 Dose: 3 ml Documented By: AUBREY Thiamine HCl (Thiamine Hcl 100 Mg Tablet) 100 mg PO DAILY [facility] Last Admin: 07/05/23 07:39 Dose: 100 mg Documented By: UABREY Labs 07/05/23 07:04 07/05/23 07:04 Labs: Laboratory Results - last 24 hr 07/04/23 07/04/23 07/05/23 08:18 15:06 07:04 MCV 87.3 MCH 30.4 MCHC 34.8 RDW 16.9 H Plt Count 113 L MPV 10.4 Absolute Nucleated RBC 0.000 Nucleated RBC % (auto) 0.0 PT 21.0 H INR 1.7 H Anion Gap 10 L Estim Creat Clear Calc 110.7 Estimated GFR > 60 Random Glucose 83 Calcium 8.1 L Blood Type O Positive Antibody Screen NEGATIVE Crossmatch See Detail Microbiology Microbiology Results: Microbiology 07/03/23 09:29 Blood Culture - Preliminary Blood - Venous No growth after 24 hours. 07/03/23 09:18 Blood Culture - Preliminary Blood - Venous No growth after 24 hours. Assessment and Plan (1) Acute hepatic encephalopathy: Status: Acute Plan 57 year old man admitted with edema, hyperkalemia and hyperammonemia with history of alcoholic liver cirrhosis Acute on chronic anemia, unspecified No active bleeding hx of liver cirrhosis HH 6.8/19.3 on 07/04/23, s/p 2 units PRBC ordered HH better today GI consult> EGD today Coagulopathy Secondary to liver disease No signs of bleeding INR today 1.7 Hyperammonemia Secondary to history of liver cirrhosis Continue lactulose 30 g t.i.d. GI following Monitor mental status closely Edema Chronic right lower abdominal edema now up to the right breast area No fever, leukocytosis, erythema less likely infectious Likely related to fluid balance Id consultation pending Albumin 2.6, s/p given IV albumin and Lasix Hyperkalemia Lokelma Follow BMP closely Hypoalbuminemia Secondary to liver disease and malnutrition s/p albumin History of alcohol abuse Reports being sober for 1 month Continue thiamine, multivitamin, ppi DVT prophylaxis with mechanical compression boots attending Dr. Navarro Full code continue hospital stay for treatment of hyperammonemia and edema requiring IV albumin and IV Lasix. Due to patient's history of alcoholic liver cirrhosis his risk of decompensation is high therefore this can not be done at a lesser acute setting. Quality Stroke Does the patient have a stroke diagnosis?: No VTE Prior VTE?: No VTE Risk Level:: Medical - moderate - high VTE Device Contraindication: N/A - Device Ordered VTE Drug Contraindication: Treatment Not Indicated
--- NOTE | 2023-07-05 10:44 | P.CONAN_ITS ---
[facility] Active Problems Active Problems: All Active Problems (Updated 07/03/23 @ 13:41 by Marcello Cyr MD) Abdominal wall cellulitis (Acute) Acute hyperkalemia (Acute) Hyperammonemia (Acute) Decompensated hepatic cirrhosis (Acute) Hyperkalemia (Acute) Hospital acquired PNA (Acute) Acute hepatic encephalopathy (Acute) Penile erosion (Acute) Phimosis (Acute) Anemia (Acute) Alcohol use disorder (Acute) Cirrhosis (Acute) Past Medical History Medical History Hepatic steatosis Diarrhea resulting from infection of the bowel mucosa Liver lesion Substance use Cirrhosis Alcohol use disorder Anemia Anemia Chronic kidney disease Alcohol dependence Family History Family history of problems with anesthesia: No Surgical History Surgical History Hx of esophagogastroduodenoscopy History of urologic surgery H/O varicose vein stripping S/P bariatric surgery History of Problems with Anesthesia: No Social History Social History Household Members: Family Household Members Other:: 2 Housing: Apartment Do you presently have visiting nurse or other home services: No Alcohol intake: former Comment: bed alarm does not work Patient Tobacco Use Status: Former Tobacco user Quit Date: 05/30/23 Tobacco use type: Cigarette Use of substances other than those prescribed or required for medical reasons: Yes Substance Use Type: Crack/Cocaine and Marijuana Substance Use Type Other:: none since 05/30/23 Currently Displaying Signs/Symptoms of Drug Intoxication Withdrawal: No Have you been hit, kicked, punched, or otherwise hurt by someone within the past year? If so, by whom?: No Do you feel safe in your current relationship?: No Current Relationship Is there a partner from a previous relationship who is making you feel unsafe now?: No Are you made to feel afraid or neglected: No Are you DNR?: No Advance Directives: Yes Advance Directives on File: Yes Advance Directives Date on File: 06/08/23 Do you have thoughts of harming others: None Do you have a plan to hurt others: No Plan Recently lost weight without trying: No service: No Current occupational status: employed Meds Allergies Allergy/AdvReac Type Severity Reaction Status Date / Time No Known Allergies Allergy Verified 06/27/23 12:24 Active Medications: Current Medications Furosemide (Furosemide 40 Mg Tablet) 40 mg PO DAILY [facility]; Protocol Last Admin: 07/04/23 09:46 Dose: Not Given Phytonadione 10 mg/ Sodium (Chloride) 51 mls @ 51 mls/hr IV ONCE ONE Stop: 07/05/23 10:45 Lactulose (Lactulose 20 Gm/30 Ml Solution) 30 gm PO TID [facility] Last Admin: 07/05/23 07:39 Dose: 30 gm Melatonin (Melatonin 3 Mg Tablet) 6 mg PO BEDTIME PRN PRN Reason: Insomnia Last Admin: 07/04/23 22:23 Dose: 6 mg Multivitamins/Vitamin C (Multivitamin Tablet) 1 tab PO DAILY [facility] Last Admin: 07/05/23 07:39 Dose: 1 tab Omeprazole (Omeprazole 40 Mg Capsule.Dr) 40 mg PO BID@0630,1630 [facility] Last Admin: 07/05/23 06:30 Dose: 40 mg Ondansetron HCl (Ondansetron Hcl 4 Mg/2 Ml Vial) 4 mg IVPUSH Q8H PRN PRN Reason: Nausea and Vomiting Rifaximin (Rifaximin 550 Mg Tablet) 550 mg PO BID [facility] Last Admin: 07/05/23 07:39 Dose: 550 mg Sodium Chloride (0.9 % Sodium Chloride Flush 3 Ml Syringe) 3 ml IVFLUSH QSHIFT [facility] Last Admin: 07/05/23 07:39 Dose: 3 ml Thiamine HCl (Thiamine Hcl 100 Mg Tablet) 100 mg PO DAILY [facility] Last Admin: 07/05/23 07:39 Dose: 100 mg Exam Height,Weight and Vital Signs: Height 6 ft Weight 97 kg Last Vital Signs Temp 97.7 F 07/05/23 10:39 Pulse 59 07/05/23 10:39 Resp 16 07/05/23 10:39 BP 111/66 07/05/23 10:39 Pulse Ox 98 07/05/23 10:39 O2 Del Method Room Air 07/05/23 10:39 Pertinent Lab Results Pertinent Lab Results: Laboratory Tests 07/03/23 07/03/23 07/03/23 09:16 09:18 15:38 WBC 5.9 RBC 2.69 L Hgb 8.1 L Hct 23.9 L MCV 88.8 MCH 30.1 MCHC 33.9 RDW 17.2 H Plt Count 159 L MPV 11.0 Immature Gran % (Auto) 0.2 Neut % (Auto) 56.5 Lymph % (Auto) 24.7 [place] % (Auto) 12.5 H Eos % (Auto) 5.4 H Baso % (Auto) 0.7 Lymph # (Auto) 1.5 [place] # (Auto) 0.7 Eos # (Auto) 0.3 Baso # (Auto) 0.0 Abs Immat Gran (auto) 0.01 Absolute Neuts (auto) 3.4 Absolute Nucleated RBC 0.000 Nucleated RBC % (auto) 0.0 Hold Purple Top SEE NOTE PT INR Hold Blue Top SEE NOTE Sodium 135 Potassium 5.6 H Chloride 111 H Carbon Dioxide 20 L Anion Gap 10 L BUN 14 Creatinine 1.24 Estim Creat Clear Calc 82.1 Estimated GFR > 60 Random Glucose 82 Lactic Acid 1.2 Calcium 7.8 L D Magnesium Total Bilirubin 1.9 H Direct Bilirubin 0.9 H AST 86 H ALT 47 H Alkaline Phosphatase 142 H Ammonia 111 H B-Natriuretic Peptide 309 H Total Protein 7.0 Albumin 2.4 L Urine Color Urine Appearance Urine pH Ur Specific [place] Urine Protein Urine Glucose (UA) Urine Ketones Urine Blood Urine Nitrite Ur Leukocyte Esterase Blood Type Antibody Screen Crossmatch 07/04/23 07/04/23 07/04/23 01:02 06:17 08:18 WBC 5.0 RBC 2.23 L Hgb 6.8 L* Hct 19.3 L* MCV 86.5 MCH 30.5 MCHC 35.2 RDW 16.8 H Plt Count 125 L MPV 10.5 Immature Gran % (Auto) 0.6 H Neut % (Auto) 53.5 Lymph % (Auto) 25.3 [place] % (Auto) 15.6 H Eos % (Auto) 4.4 H Baso % (Auto) 0.6 Lymph # (Auto) 1.3 [place] # (Auto) 0.8 Eos # (Auto) 0.2 Baso # (Auto) 0.0 Abs Immat Gran (auto) 0.03 Absolute Neuts (auto) 2.7 Absolute Nucleated RBC 0.000 Nucleated RBC % (auto) 0.0 Hold Purple Top PT INR Hold Blue Top Sodium 136 Potassium 4.9 Chloride 110 H Carbon Dioxide 21 L Anion Gap 10 L BUN 15 Creatinine 1.26 Estim Creat Clear Calc 79.9 Estimated GFR 59 Random Glucose 86 Lactic Acid Calcium 8.1 L Magnesium 1.7 Total Bilirubin 1.6 H Direct Bilirubin AST 62 H ALT 34 Alkaline Phosphatase 115 Ammonia B-Natriuretic Peptide Total Protein 6.4 L Albumin 2.6 L Urine Color Yellow Urine Appearance Clear Urine pH 7.0 Ur Specific [place] 1.015 Urine Protein Negative Urine Glucose (UA) Negative Urine Ketones Negative Urine Blood Negative Urine Nitrite Negative Ur Leukocyte Esterase Negative Blood Type O Positive Antibody Screen NEGATIVE Crossmatch See Detail 07/04/23 07/05/23 15:06 07:04 WBC 5.3 RBC 2.37 L Hgb 7.2 L 7.8 L Hct 20.7 L* 22.2 L MCV 87.3 MCH 30.4 MCHC 34.8 RDW 16.9 H Plt Count 113 L MPV 10.4 Immature Gran % (Auto) Neut % (Auto) Lymph % (Auto) [place] % (Auto) Eos % (Auto) Baso % (Auto) Lymph # (Auto) [place] # (Auto) Eos # (Auto) Baso # (Auto) Abs Immat Gran (auto) Absolute Neuts (auto) Absolute Nucleated RBC 0.000 Nucleated RBC % (auto) 0.0 Hold Purple Top PT 21.0 H INR 1.7 H Hold Blue Top Sodium 134 L Potassium 5.0 Chloride 110 H Carbon Dioxide 19 L Anion Gap 10 L BUN 13 Creatinine 0.91 Estim Creat Clear Calc 110.7 Estimated GFR > 60 Random Glucose 83 Lactic Acid Calcium 8.1 L Magnesium Total Bilirubin Direct Bilirubin AST ALT Alkaline Phosphatase Ammonia B-Natriuretic Peptide Total Protein Albumin Urine Color Urine Appearance Urine pH Ur Specific [place] Urine Protein Urine Glucose (UA) Urine Ketones Urine Blood Urine Nitrite Ur Leukocyte Esterase Blood Type Antibody Screen Crossmatch Airway Mallampati Class: III TM Dist: >3cm Neck ROM: Full Loose/Missing/Broken Teeth: Yes (globally poor dentition) Heart: RRR Lungs: CTA ANTERIORLY Assessment and Plan Assessment Anesthesia Assessment: Anesthesia Plan Discussed and Chart Reviewed Final Anesthetic Review Family History of Problems with Anesthesia: No History of Problems with Anesthesia: No NPO: No ASA Class: IV Final Preanesthetic Review: Meds/Allgs Chart Reviewed, Consent Obtained/Reviewed and Anes Risks/Benef Reviewed Patient Risk: Intermediate Procedure Risk: Intermediate Anesthetic Plan Anesthetic Plan: MAC: Disposition: Standard PACU
--- NOTE | 2023-07-05 11:09 | PC.NURSE ---
Notified by pre op LUX Diop at 0832 via [employer] patient scheduled for EGD pickup at . At this time, no surgery order or NPO in. Notified by pre op LUX Ma at 0948 via [employer] patients EGD moved up - Handoff given to Francesca via phone. Notified RN patient received morning medications including Lactulose but has not had any food since midnight. Vit K ordered for INR 1.7 - notified by preop RN vit k will not be given prior - This RN notified pharmacy and JIGAR Arnold of vit K being on hold per preop. Patient picked up for EGD at 1005. Surgery order placed at 1053. Notified by preop LUX Ma at 1103 surgery on hold d/t patient received morning lactulose dose.
--- NOTE | 2023-07-05 12:32 | MHC.CM.PN ---
Per MD rounds Endoscopy scheduled today. DP home family support and transport.
[2023-07-05] MEDS: Lactated Ringers 1,000 ML 50 ML IVCONT (13:53)
--- NOTE | 2023-07-05 14:28 | P.OP_ITS ---
Operative Note Operative Note Date of Service: 07/05/23 Narrative: Procedure: Esophagogastroduodenoscopy Endoscopist: Brenna Mena MD Indication: Anemia, cirrhosis Anesthesia Provider: Dr Talib Tee Anesthesia Type: MAC ?? EGD Procedure:?? The procedure, indications, preparation and potential complications were reviewed with the patient, who indicated understanding and gave written informed consent to proceed. A physical exam was performed. The endoscope was introduced through the mouth, and advanced to the second part of duodenum. The mucosa was carefully examined on slow withdrawal of the endoscope. The patient tolerated the procedure well. There were no immediate complications.? ? EGD Findings:? * Esophagus:? Normal esophageal mucosa. No varices noted. Z line at 39 cm. * Stomach:? Diffuse congestion and erythema in mosaic pattern consistent with portal hypertensive gastropathy was noted in the whole stomach. A few small AVMs measuring 3-4 mm were noted in the antrum which were ablated with APC (straight fire catheter). * Duodenum:? Evidence of enteroenteric anastomosis at 55 cm with a short blind limb. One bleeding AVM measurting 5 mm that was treated with APC as well. The efferent loop appeared normal to the extent examined. There was no ulceration around the anastomosis. ? EGD Impressions:? * Normal esophagus * Portal hypertensive gastropathy * Gastric and small bowel AVMs * Enteroenteric anastomosis ?? Recommendations:?? * No varices noted on exam today * Will need colonoscopy as outpatient to complete evaluation for anemia as previously discussed with the patient. * PPI can be descalated to once daily * Avoid NSAIDs. Above has been reviewed with the patient.
--- NOTE | 2023-07-05 14:28 | MHC.SHP ---
Pre-Procedural Eval Section A - 24 Hr Update-Section A only Date of Service: 07/05/23 The patient is an INPATIENT: Yes The patient has been examined within 24 hours of the surgical procedure. The History & Physical has been completed within 30 days and I have reviewed it.: Yes Section B - Complete if H&P > 30 days Chief Complaint: Anemia Allergies: Allergies Allergy/AdvReac Type Severity Reaction Status Date / Time No Known Allergies Allergy Verified 06/27/23 12:24 Plan Diagnosis/Plan: Unchanged I have reviewed the history and physical and performed a pertinent physical examination on my patient. No changes have occurred unless specified. Time Spent With Patient Time: Total time managing care of this patient today ____ minutes.
--- NOTE | 2023-07-05 14:37 | P.CNID_ITS ---
History of Present Illness Data of Consult Service Date: 07/04/23 Requesting physician: Sophie Tejada Primary Care Provider: Arin Nelson MD [facility] Reason for consult: right chest wall swelling He reports swelling in right chest area better with diuretics. He has no fever or chills. He has no redness of significance. Review of Systems 2 Review of Systems: Yes all other systems are reviewed and are negative [facility] Past Medical History Medical History (Updated 07/05/23 @ 14:39 by Mitra Hinojosa MD) Abdominal wall swelling Hepatic steatosis Diarrhea resulting from infection of the bowel mucosa Liver lesion Substance use Cirrhosis Alcohol use disorder Anemia Anemia Chronic kidney disease Alcohol dependence Surgical History Surgical History Hx of esophagogastroduodenoscopy History of urologic surgery H/O varicose vein stripping S/P bariatric surgery Social History Social History Household Members: Family Household Members Other:: 2 Housing: Apartment Do you presently have visiting nurse or other home services: No Alcohol intake: former Comment: bed alarm does not work Patient Tobacco Use Status: Former Tobacco user Quit Date: 05/30/23 Tobacco use type: Cigarette Use of substances other than those prescribed or required for medical reasons: Yes Substance Use Type: Crack/Cocaine and Marijuana Substance Use Type Other:: none since 05/30/23 Currently Displaying Signs/Symptoms of Drug Intoxication Withdrawal: No Have you been hit, kicked, punched, or otherwise hurt by someone within the past year? If so, by whom?: No Do you feel safe in your current relationship?: No Current Relationship Is there a partner from a previous relationship who is making you feel unsafe now?: No Are you made to feel afraid or neglected: No Are you DNR?: No Advance Directives: Yes Advance Directives on File: Yes Advance Directives Date on File: 06/08/23 Do you have thoughts of harming others: None Do you have a plan to hurt others: No Plan Recently lost weight without trying: No service: No Current occupational status: employed Meds Allergies Allergy/AdvReac Type Severity Reaction Status Date / Time No Known Allergies Allergy Verified 06/27/23 12:24 Active Medications: Current Medications Furosemide (Furosemide 40 Mg Tablet) 40 mg PO DAILY [facility]; Protocol Last Admin: 07/04/23 09:46 Dose: Not Given Phytonadione 10 mg/ Sodium (Chloride) 51 mls @ 51 mls/hr IV ONCE ONE Stop: 07/05/23 10:45 Lactated Ringer's (Lr) 1,000 mls @ 50 mls/hr IVCONT .Q20H [facility] Last Admin: 07/05/23 13:53 Dose: 50 mls/hr Lactulose (Lactulose 20 Gm/30 Ml Solution) 30 gm PO TID [facility] Last Admin: 07/05/23 07:39 Dose: 30 gm Melatonin (Melatonin 3 Mg Tablet) 6 mg PO BEDTIME PRN PRN Reason: Insomnia Last Admin: 07/04/23 22:23 Dose: 6 mg Multivitamins/Vitamin C (Multivitamin Tablet) 1 tab PO DAILY [facility] Last Admin: 07/05/23 07:39 Dose: 1 tab Omeprazole (Omeprazole 40 Mg Capsule.Dr) 40 mg PO BID@0630,1630 [facility] Last Admin: 07/05/23 06:30 Dose: 40 mg Ondansetron HCl (Ondansetron Hcl 4 Mg/2 Ml Vial) 4 mg IVPUSH Q8H PRN PRN Reason: Nausea and Vomiting Rifaximin (Rifaximin 550 Mg Tablet) 550 mg PO BID [facility] Last Admin: 07/05/23 07:39 Dose: 550 mg Sodium Chloride (0.9 % Sodium Chloride Flush 3 Ml Syringe) 3 ml IVFLUSH QSHIFT [facility] Last Admin: 07/05/23 07:39 Dose: 3 ml Thiamine HCl (Thiamine Hcl 100 Mg Tablet) 100 mg PO DAILY [facility] Last Admin: 07/05/23 07:39 Dose: 100 mg Physical Exam 2 Vital Signs: Vital Signs: Last Vital Signs Temp 97.5 F 07/05/23 13:51 Pulse 63 07/05/23 13:51 Resp 16 07/05/23 13:51 BP 109/61 07/05/23 13:51 Pulse Ox 97 07/05/23 13:51 O2 Del Method Room Air 07/05/23 13:51 BMI result Body Mass Index 29.0 Chest: Other: chest wall swelling and no redness Results Labs 07/05/23 07:04 07/05/23 07:04 Labs: Short CBC 07/04/23 07/05/23 Range/Units 15:06 07:04 WBC 5.3 (4.8-10.8) X10*3/uL Hgb 7.2 L 7.8 L (14.0-18.0) g/dl Hct 20.7 L* 22.2 L (42.0-52.0) % Plt Count 113 L (160-400) X10*3/uL BMP 07/05/23 07:04 Sodium 134 L Potassium 5.0 Chloride 110 H Carbon Dioxide 19 L BUN 13 Creatinine 0.91 Calcium 8.1 L Microbiology Microbiology Results: Microbiology 07/03/23 09:29 Blood - Venous Blood Culture - Preliminary No growth after 48 hours. 07/03/23 09:18 Blood - Venous Blood Culture - Preliminary No growth after 48 hours. Assessment and Plan (1) Abdominal wall swelling: Status: Acute This appears not to be cellulitis at this time. It appears to be resolving with diuretics,concern anasarca,dependent edema. Plan Hold antibiotics at this time.
[2023-07-05] MEDS: Melatonin 3 MG TABLET 6 MG PO (22:24)
[2023-07-05] MEDS: Lactated Ringers 500 ML IV (22:51)
[2023-07-06] VITALS: BP 94/47; PULSE 76; RESP 20; TEMP 36.6; O2SAT 96
[2023-07-06 03:43] VITALS: BP 106/59; PULSE 75; RESP 20; TEMP 36.7; O2SAT 95
[2023-07-06] MEDS: Omeprazole 40 MG CAPSULE.DR PO (05:16)
[2023-07-06 07:29] VITALS: BP 91/64; PULSE 69; RESP 18; TEMP 37.5; O2SAT 96
[2023-07-06] MEDS: Thiamine HCL 100 MG TABLET PO (08:31)
[2023-07-06] MEDS: rifAXIMin 550 MG TABLET PO (08:31)
[2023-07-06] MEDS: Multivitamin TABLET 1 TAB PO (08:31)
[2023-07-06] MEDS: Lactulose 20 GM/30 ML SOLUTION 30 GM PO (08:32)
[2023-07-06] MEDS: 0.9 % Sodium Chloride Flush 3 ML SYRINGE IVFLUSH (08:33)
--- NOTE | 2023-07-06 10:28 | PM.DS ---
DS: Providers Provider Date of Service: 07/06/23 Date of admission: 07/03/23 15:11 Primary care physician: Arin Nelson MD Consults: 07/03/23 15:25 Consult to Infectious Diseases Routine Consulting Provider: [facility] [place] Infectious Disease Reason for consultation: ? cellulitis, abd 07/03/23 15:33 Consult to Gastroenterology Routine Consulting Provider: Brenna Mena Reason for consultation: Hyperammonemia DS: Diagnosis Discharge Diagnosis (1) Abdominal wall swelling: Status: Inactive DS: Summary Hospital Course Hospital Course: History of presenting illness: Date of Service: 07/03/23 Chief Complaint: swelling 57-year-old man with history of alcoholic liver cirrhosis presented to the ER with complaints of right-sided breast swelling all the way to his abdomen. Denied fever, chills, nausea, vomiting. He is on lactulose and frequently has loose stools. He reported some sleepiness but no lethargy. He has been sober for over 1 month. Chest x-ray in the ER shows suspected mild CHF. No fever leukocytosis noted, potassium 5.6, given a dose of Lokelma in the ER. Chronic transaminitis, ammonia 111. Patient given albumin, Zosyn, lactulose, Lokelma and Lasix in the ER. He will be admitted for further management and treatment of anemia, edema and hyperammonemia. Hospital course: 57 year old man admitted with edema, hyperkalemia and hyperammonemia with history of alcoholic liver cirrhosis, and noted to have acute on chronic anemia, no active bleeding was noted likely anemia of chronic disease due to liver cirrhosis, HH 6.8/19.3 on 07/04/23, s/p 2 units PRBC hematocrit improved, patient underwent upper endoscopy that showed normal esophagus, portal hypertensive gastropathy, gastric and small bowel AVMs, no varices were noted, patient placed on PPI and recommended outpatient follow-up with Gastroenterology for colonoscopy, in regard to coagulopathy due to liver disease patient treated with 1 dose of vitamin K, no active bleeding was noted. Chronic Hyperammonemia, no confusion noted, Secondary to history of liver cirrhosis recommend to continue lactulose and complete abstinence from alcohol Chronic right lower abdominal edema worsened with extension towards right chest , treated with diuretics with good affect, no infection noted. Hyperkalemia treated with Lokelma and normalized. Hypoalbuminemia Secondary to liver disease and malnutrition, treated with albumin, strongly recommend complete abstinence from alcohol. History of alcohol abuse Reports being sober for 1 month recommend to continue thiamine multivitamin and recommend complete abstinence from alcohol Time Attestation Discharge Coordination Time (in mins): 36 Quality: Safe Use of Opioids Does Pt have an Active Cancer Diagnosis on the Problem List?: No Quality: Stroke Does the patient have a stroke diagnosis?: No Physical Exam Vital Signs: Vital Signs: Last Vital Signs Temp 99.5 F 07/06/23 07:29 Pulse 69 07/06/23 07:29 Resp 18 07/06/23 07:29 BP 91/64 07/06/23 07:29 Pulse Ox 96 07/06/23 07:29 O2 Del Method Room Air 07/06/23 07:29 O2 Flow Rate 4 07/05/23 15:20 BMI result Body Mass Index 29.0 Const: Other: General; awake alert, in no acute distress, under nourished Neck no JVD lung sounds are clear to auscultation heart regular rate rhythm, clear S1, S2 positive bowel sounds, abdomen soft, non tender neuro no focal deficits DS: Data Data Completed and Pending Completed studies during hospitalization [Text1]: Procedures Detoxification Services for Substance Abuse Treatment (05/31/23) Extirpation of Matter from Penis, Open Approach (09/11/22) Inspection of Upper Intestinal Tract, Via Natural or Artificial Opening Endoscopic (05/31/23) Resection of Prepuce, External Approach (09/11/22) Transfusion of Nonautologous Platelets into Peripheral Vein, Percutaneous Approach (09/11/22) Transfusion of Nonautologous Red Blood Cells into Peripheral Vein, Percutaneous Approach (05/31/23) Labs on day of discharge: Preliminary micro results at discharge 07/03/23 09:29 Blood Culture - Preliminary Blood - Venous No growth after 48 hours. 07/03/23 09:18 Blood Culture - Preliminary Blood - Venous No growth after 48 hours. Discharge Plan Discharge Anticipated Discharge Date/Time: 07/06/23 10:19 Patient Disposition: Home Health Service Discharge Diagnosis: Acute on chronic anemia Chronic hyperammonemia Referrals: Andrew BAUTISTA [Outside] - 1 Week Arin Nelson MD [Primary Care Provider] - 1 Week Discharge Medications: Continued thiamine mononitrate (vit B1) 100 mg Tablet 100 mg PO DAILY Qty: 90 0RF multivitamin [Daily-Sherry] Tablet 1 tab PO DAILY Qty: 90 0RF (DME) Ultra-Light Rollator Misc See Rx Instructions .Route Qty: 1 0RF Rx Instructions: As directed (DME) walker [facility] [place] See Rx Instructions .Route Qty: 1 0RF Rx Instructions: As directed lactulose 20 gram/30 mL Solution 30 g PO TID Qty: 2880 0RF furosemide 40 mg tablet 40 mg PO DAILY Qty: 90 0RF Hold Instructions: hold until follow up with GI on Tuesday Changed omeprazole 40 mg Capsule,Delayed Release(Dr/Ec) 40 mg PO DAILY 56 Days Qty: 142 0RF Rx Instructions: twice daily for 8 weeks then once daily No Action rifaximin 550 mg tablet 550 mg PO BID 90 Days Qty: 180 1RF acetaminophen [Tylenol Extra Strength] 500 mg tablet 500 mg PO QID PRN (Reason: pain) Qty: 60 1RF Rx Instructions: Pls do not take more than 4 tablets in 24h. melatonin 5 mg Tablet 5 - 10 mg PO BEDTIME PRN (Reason: Insomnia) zinc sulfate [Zinc-220] 50 mg zinc (220 mg) Capsule 220 mg PO DAILY 90 Days Qty: 396 0RF Ensure High Protein Liquid 1 ea PO BID 30 Days Qty: 27528 1RF Discharge Orders: Discharge Order (Routine); Ordered 07/06/23 Ordered By: Danielle Milner Diet: Advance to usual diet Activity on Discharge: As tolerated Stand Alone Forms: Patient Portal Discharge page Print Language: Ukrainian Care Plan Goals: Acute on chronic anemia status post 2 units of packed RBC hematocrit improved Upper endoscopy showed normal esophagus/portal hypertensive gastropathy/gastric and small bowel AVMs Take Prilosec 1 tablet daily No NSAIDs Health Concerns: Continue all home medications as before Complete abstinence from alcohol Plan of Treatment: Outpatient follow-up with primary care physician Outpatient follow-up with photographic artist for colonoscopy call for appointment with Dr. Mena. Assessment: as above Discharge Date/Time: 07/06/23 12:00
--- NOTE | 2023-07-06 10:57 | MHC.CM.PN ---
Addendum entered by Lucille Wilson 07/06/23 11:56: Patient is discharge to home with [facility]. His sister will provide transportation. Addendum entered by Lucille Wilson 07/06/23 11:12: [facility] has accepted the patient for home services. They will start services within 48 hrs. Original Note: Per MD rounds dc today. Patient has beenseen by his new PCP. He is established with Dr Arin Nelson. MD order Home services. Obtained pt/family choice. Referral has been sent to [facility]. Patient sister will transport home. She brought info and a letter to be faxed. [facility] licensed practical nurse instructor was asked to meet with the patient. She will meet with patient and sister Rubi to assist with insurance.
--- NOTE | 2023-07-06 11:13 | W.MHC.F2F ---
Service Date Service Date: 07/06/23 Encounter Date of encounter: 07/06/23 Reasons for Services Signs and symptoms assessed: weakness,generalized edema /decompensated cirrhosis Reason for [facility]: medication management and GI/ assessment Reason for physical therapy: home safety and mobility Homebound: Leaving the home is medically contraindicated at this time without the asist of a device and/or another person due th the listed conditions above and below. Reason homebound: weakness related to hospital stay Certification: Based on the above findings, I certify that this patient is confined to the home and needs intermittent [facility] care, physical therapy and/or speech therapy, or continues to need occupational therapy. The patient is under my care, and I have initiated the establishment of the plan of care. The patient will be followed by a physician who will periodically review the plan of care. Time Spent With Patient Time: Total time managing care of this patient today ____ minutes.
--- NOTE | 2023-07-06 12:46 | HO.POSTANES ---
Post Anesthesia Evaluation Post Anesthesia Evaluation Date of Service: 07/06/23 Vital Signs: Vital Signs Temp Pulse Resp BP Pulse Ox O2 Del Method 07/06/23 07:29 99.5 F 69 18 91/64 96 Room Air 07/06/23 03:43 98.0 F 75 20 106/59 L 95 Room Air Anesthesia: Monitored Mental Status: Awake Pain Control: Satisfactory Nausea/Vomiting: None Hydration: Adequate Anesthesia-Related Issues: No Anes. Related Issues
== END 2023-07-06 12:00 | disposition home health service (06) | DRG 280 ==
LOC: HO.ED 13:40 → HO.EDOVER 15:27 → HO.IMC 17:12
PROVIDERS: Internal Medicine; Admitting Provider Nurse Practitioner Acute Care; Emergency Provider Emergency Medicine; PCP Internal Medicine; Visit Provider Hospitalist
PROC: 0DJ08ZZ Inspection of Upper Intestinal Tract, Via Natural or Artificial Opening Endoscopic (ICD-10-PCS; CPT 43235; principal; 2023-07-05 11:40)
DX: K70.30 Alcoholic cirrhosis of liver without ascites (principal); N17.9 Acute kidney failure, unspecified; E46 Unspecified protein-calorie malnutrition; E72.20 Disorder of urea cycle metabolism, unspecified; K31.811 Angiodysplasia of stomach and duodenum with bleeding; D68.4 Acquired coagulation factor deficiency; D63.8 Anemia in other chronic diseases classified elsewhere; K76.6 Portal hypertension; E87.5 Hyperkalemia; K76.82 Hepatic encephalopathy; K31.89 Other diseases of stomach and duodenum; F19.10 Other psychoactive substance abuse, uncomplicated; F10.21 Alcohol dependence, in remission; Z87.891 Personal history of nicotine dependence; Z68.29 Body mass index [BMI] 29.0-29.9, adult; Z98.84 Bariatric surgery status; Z79.899 Other long term (current) drug therapy
CPT/HCPCS: 43270; 36415; 71045; 76705; 80048; 80053; 81003; 82140; 82248; 83605; 83735; 83880; 85014; 85018; 85025; 85027; 85610; 86850; 86900; 86901; 86923; 87040; 99222; 99285; J0171; J1940; J2543; J2704; J7120; P9016; P9047

== ENCOUNTER → 2023-07-03 15:11 | Outpatient (BNV) | payer BC, SELFPAY | PROVIDERS: Admitting Provider Nurse Practitioner Acute Care; Emergency Provider Emergency Medicine; PCP Internal Medicine; Visit Provider Nurse Practitioner Acute Care | DX: R19.00 Intra-abdominal and pelvic swelling, mass and lump, unspecified site (principal) | CPT/HCPCS: 99223; 99232; 99239; G0180 ==

== ENCOUNTER → 2023-07-03 15:11 | Outpatient (BNV) | payer BC, SELFPAY | PROVIDERS: Admitting Provider Nurse Practitioner Acute Care; Emergency Provider Emergency Medicine; PCP Internal Medicine; Visit Provider Internal Medicine | DX: D64.9 Anemia, unspecified (principal); K74.60 Unspecified cirrhosis of liver; K31.819 Angiodysplasia of stomach and duodenum without bleeding; Z98.0 Intestinal bypass and anastomosis status | CPT/HCPCS: 43270; 99223 ==

== ENCOUNTER 2023-07-14 09:10 | Outpatient (REF) | payer BC, SELFPAY ==
[2023-07-14 09:40] LABS: Hematocrit 27.4 % (42.0-52.0); Hemoglobin 9.3 g/dl (14.0-18.0); Mean Corpuscular HGB Conc 33.9 g/dl (31.0-36.0); Mean Corpuscular Hemoglobin 29.7 pg (27.0-33.0); Mean Corpuscular Volume 87.5 fL (80.0-98.0); Platelet Count 142 X10*3/uL (160-400); Red Blood Count 3.13 X10*6/uL (4.60-5.80); Red Cell Distribution Width 17.3 % (11.0-16.0); White Blood Count 5.3 X10*3/uL (4.8-10.8)
[2023-07-14 10:08] LABS: Anion Gap 10 (12-20); Blood Urea Nitrogen 13 mg/dL (9-16); Calcium 8.8 mg/dL (8.4-10.2); Carbon Dioxide 23 mmol/L (22-29); Chloride 110 mmol/L (96-108); Estimated Glomerular Filt Rate > 60; Glucose Random 100 mg/dL (60-115); Potassium 4.8 mmol/L (3.3-5.1); Sodium 138 mmol/L (135-145)
== END 2023-07-14 09:11 | disposition home or self-care (01) ==
LOC: HO.LAB 09:10
PROVIDERS: Hospitalist; PCP Internal Medicine; Visit Provider Internal Medicine
DX: D64.9 Anemia, unspecified (principal); E87.5 Hyperkalemia
CPT/HCPCS: 36415; 80048; 85027

== ENCOUNTER 2023-07-18 13:32 | Inpatient (IN) | payer BC, OTHER, SELFPAY ==
--- NOTE | ~2023-07-18 | XR_ITS ---
EXAMINATION: XR CHEST CLINICAL INFORMATION: Cough COMPARISON: Previous chest x-ray most recent June 2023 TECHNIQUE: Frontal view of the chest was obtained. FINDINGS: The cardiac and mediastinal contours are stable. The lung volumes are low. There is left perihilar subsegmental atelectasis. The lungs are otherwise clear. No pleural effusion or pneumothorax. Distended bowel below the diaphragm. XR/XR chest 1V IMPRESSION: Low lung volumes. Left perihilar subsegmental atelectasis. Distended bowel below the diaphragm.
--- NOTE | ~2023-07-18 | US_ITS ---
EXAMINATION: US ABDOMEN LIMITED CLINICAL INFORMATION: Ascites check. COMPARISON: Ultrasound abdomen limited 07/04/2023 and 06/13/2023. CT abdomen and pelvis 05/31/2023. TECHNIQUE: Real-time imaging of the abdomen. FINDINGS: Targeted ultrasound images were obtained by the campaign associate in the 4 quadrants of the abdomen to evaluate for possible ascites. No discrete ascites appreciated, although visualization limited due to bowel gas. Radiologist was not in attendance. Images were later provided for interpretation. US/US abdomen limited IMPRESSION: No evidence of ascites. Limited visualization due to bowel gas. This study was presented today July 20, 2023 for interpretation. Prompt priority results supplied at this time to the referring provider as requested by the provider.
[2023-07-18 13:41] VITALS: BP 97/51; PULSE 60; RESP 20; TEMP 36.9; O2SAT 100; BMI 27.1
--- NOTE | 2023-07-18 13:41 | ED_ITS ---
HPI - General Adult General Chief complaint: Weakness Stated complaint: Liver issues Time Seen by Provider: 07/18/23 21:30 Source: patient and family Mode of arrival: wheelchair Limitations: altered mental status History of Present Illness HPI narrative: Patient comes to the emergency room accompanied by family. Patient was recently discharged from the hospital for altered mental status secondary to high ammonia due to liver cirrhosis. Family reports that today the patient has been more somnolent than usual, vomiting, very confused, not making sense, asterixis is worsened from baseline. Also, the family reports that he is much weaker than usual. Patient has been taking lactulose as prescribed except for the last couple of doses because he was here in the waiting room. Patient's family states that no matter how sick he is, the patient will be say that he feels well. Related Data Previous Rx's Medication Instructions Recorded walker #1 ea 09/21/22 multivitamin (Daily-Sherry tablet) 1 tab PO DAILY #90 tabs 06/07/23 thiamine mononitrate (vit B1) 100 100 mg PO DAILY #90 tabs 06/07/23 mg tablet walker (Ultra-Light Rollator misc) #1 ea 06/07/23 lactulose 20 gram/30 mL oral 30 g (45 mL) PO TID #2,880 mL 06/20/23 solution furosemide 40 mg tablet 40 mg PO DAILY #90 tabs 06/28/23 omeprazole 40 mg capsule,delayed 40 mg PO DAILY 8 weeks #142 caps 07/06/23 release rifaximin 550 mg tablet 550 mg PO BID 90 days #180 tabs 07/14/23 Allergies Allergy/AdvReac Type Severity Reaction Status Date / Time No Known Allergies Allergy Verified 06/27/23 12:24 Review of Systems 2 Review of Systems: Constitutional : No Weight loss, No Fever, No Chills, No Night Sweats, No Fatigue, No Malaise ENT/Mouth : No Hearing loss, No Ear Pain, No Nasal Congestion, No Sinus Pain, No Hoarseness, No sore throat, No Rhinorrhea, No Swallowing Difficulty Eyes: No Eye Pain, No Swelling, No Redness, No Foreign Body, No Discharge, No Vision Changes Cardiovascular : No Chest Pain, No SOB, No Dyspnea on Exertion, No Orthopnea, No Edema, No Palpitations Respiratory : No Cough, No Sputum, No Wheezing, No Smoke Exposure, No Dyspnea Gastrointestinal : No Nausea, No Vomiting, No Diarrhea, No Constipation, No abdominal Pain, No Hematochezia, No Melena Genitourinary : no irregular bleeding, No Dysuria, No Urinary Frequency, No Hematuria, No Urinary Incontinence, No Urgency, No Flank Pain, No Urinary Flow Changes, No Hesitancy Musculoskeletal : No joint pain, No Myalgias, No Joint Swelling Skin : No Skin Lesions, No rash Neuro : Worsening weakness, no paresthesias, no loss of consciousness, complaining of worsening asterixis in upper extremities Psych : No Anxiety/Panic, No Depression, No SI/HI/AH/VH, No Social Issues, Heme/Lymph: No Bruising, No Bleeding,No Lymphadenopathy Endocrine : No Polyuria, No Polydipsia, No Temperature Intolerance PMFSH Past Medical History Medical History Abdominal wall swelling Hyperammonemia Hepatic steatosis Diarrhea resulting from infection of the bowel mucosa Liver lesion Substance use Cirrhosis Alcohol use disorder Anemia Anemia Chronic kidney disease Alcohol dependence Surgical History Hx of esophagogastroduodenoscopy History of urologic surgery H/O varicose vein stripping S/P bariatric surgery Social History Social History Household Members: Family Household Members Other:: 2 Housing: Apartment Do you presently have visiting nurse or other home services: No Alcohol intake: former Comment: bed alarm does not work Patient Tobacco Use Status: Former Tobacco user Quit Date: 05/30/23 Tobacco use type: Cigarette Substance Use Type: Crack/Cocaine and Marijuana Advance Directives: Yes Advance Directives on File: Yes Advance Directives Date on File: 06/08/23 service: No Current occupational status: employed Physical Exam ED Vital Signs: Vital Signs - 24 hr 07/18/23 13:41 07/18/23 18:18 07/18/23 21:21 Temperature 98.4 F 97.7 F 97.8 F Pulse Rate 60 53 61 Respiratory Rate 20 16 16 Blood Pressure 97/51 L 108/56 L 103/48 L Pulse Oximetry 100 97 100 Oxygen Delivery Method Room Air Room Air Room Air BMI result Body Mass Index 27.1 Const Other: Appearance: Alert. Oriented X3. No acute distress. Eyes: Pupils equal, round and reactive to light. Bilateral Saldana's ENT: Pharynx normal. Neck: Normal inspection. Neck supple. No lymph nodes noted. No crepitus CVS: Normal heart rate and rhythm. Pulses normal. Normal S1 and S2 Respiratory: No respiratory distress. Breath sounds normal. No Wheezing. No rales Abdomen: Soft , patient does have fluid in the abdomen but abdomen is not tense or tender. No rigidity. Skin: Skin warm and dry. Normal skin color. Normal skin turgor. Extremities: Patient has chronic lower extremity edema, worse on the left leg, per family chronic but bigger than usual Neuro: Oriented X 3. No motor deficit. No sensory deficit. Moving all extremities. No slurred speech. CN 2 through 12 grossly intact Psych: calm, cooperative Course Course Course Narrative: This is a rapid medical exam: Additional HPI, ROS, PE not included below will be deferred to primary provider. Patient is a 57-year old male with history of hepatic steatosis, cirrhosis, CKD, anemia, alcohol dependence presenting to the ED with complaint of lethargy, confusion, nausea, vomiting, RLE swelling, blistering to R heel. Denies fevers. Plan: labs including cultures and lactic Medical Decision Making Medical Decision Making [facility] Narrative: -patient's ammonia is significantly elevated, today 196. Patient was admitted 2 weeks ago to the hospital, then the ammonia was 111 -patient given p.o. lactulose here, patient has missed 2 doses -I discussed the patient with Dr. Hastings from the internal medicine team, patient being admitted Differential Diagnosis Differential Diagnoses: The differential diagnosis associated with the presentation includes (High ammonia, EtOH, UTI) Admission/Observation Consideration of admission/observation: Escalation of care including admission/observation considered Consult Healthcare Provider Management of the patient was discussed with: Hospitalist Lab Data [facility] Lab Attestation statement: I reviewed the patient's lab results. 07/18/23 14:27 07/18/23 14:27 Labs: Lab Results 07/18/23 Range/Units 14:27 WBC 4.6 L (4.8-10.8) X10*3/uL RBC 3.03 L (4.60-5.80) X10*6/uL Hgb 8.9 L (14.0-18.0) g/dl Hct 26.4 L (42.0-52.0) % MCV 87.1 (80.0-98.0) fL MCH 29.4 (27.0-33.0) pg MCHC 33.7 (31.0-36.0) g/dl RDW 17.4 H (11.0-16.0) % Plt Count 186 D (160-400) X10*3/uL MPV 10.8 (9.4-12.4) fL Immature Gran % (Auto) 0.2 (0.0-0.4) % Neut % (Auto) 54.8 (45-73) % Lymph % (Auto) 27.3 (20-40) % [place] % (Auto) 13.5 H (2-11) % Eos % (Auto) 3.3 (0-4) % Baso % (Auto) 0.9 (0-2) % Lymph # (Auto) 1.3 (1.2-4.9) X10*3/uL [place] # (Auto) 0.6 (0.1-1.2) X10*3/uL Eos # (Auto) 0.2 (0.0-0.4) X10*3/uL Baso # (Auto) 0.0 (0.0-0.2) X10*3/uL Abs Immat Gran (auto) 0.01 (0.00-0.03) X10*3/uL Absolute Neuts (auto) 2.5 (2.0-8.3) x10*3/uL Absolute Nucleated RBC 0.000 (0.0-0.012) X10*3/uL Nucleated RBC % (auto) 0.0 (0.0-0.2) /100WBC PT 18.4 H (11.1-13.3) SEC INR 1.5 H (0.9-1.1) Sodium 143 (135-145) mmol/L Potassium 4.1 (3.3-5.1) mmol/L Chloride 116 H (96-108) mmol/L Carbon Dioxide 22 (22-29) mmol/L Anion Gap 9 L (12-20) BUN 17 H (9-16) mg/dL Creatinine 1.15 (0.5-1.4) mg/dL Estim Creat Clear Calc 79.6 Estimated GFR > 60 Random Glucose 105 (60-115) mg/dL Lactic Acid 1.7 (0.5-2.0) mmol/L Calcium 8.6 (8.4-10.2) mg/dL Magnesium 2.1 (1.6-2.6) mg/dL Total Bilirubin 1.6 H (0.0-1.0) mg/dL AST 75 H (5-37) U/L ALT 42 H (0-40) U/L Alkaline Phosphatase 154 H (39-117) U/L Ammonia 196 H (13-55) umol/L Total Protein 7.4 (6.5-8.0) g/dL Albumin 2.9 L (3.5-5.0) g/dL Ethyl Alcohol < 10 mg/dL Influenza Type A (PCR) NEGATIVE (Negative) Influenza Type B (PCR) NEGATIVE (Negative) RSV RNA Qual (PCR) NEGATIVE (Negative) SARS-CoV-2 RNA (RT-PCR) NEGATIVE (Negative) Chronic Conditions Patient?s care impacted by: Other (Hepatic cirrhosis) Critical Care Time Critical Care Time Critical Care Time: Yes Total Critical Care Time: 45 Attestation: I have personally provided critical care time. Time includes review of lab data, radiology results, discussion with consultants, and monitoring for potential decompensation. Intervention performed as documented. Discharge Plan Discharge Clinical Impression: Hyperammonemia, Acute alteration in mental status Patient Disposition: Admitted As Inpatient Prescriptions: No Action rifaximin 550 mg tablet 550 mg PO BID 90 Days Qty: 180 1RF thiamine mononitrate (vit B1) 100 mg Tablet 100 mg PO DAILY Qty: 90 0RF multivitamin [Daily-Sherry] Tablet 1 tab PO DAILY Qty: 90 0RF (DME) Ultra-Light [place] [facility] [place] Rx Instructions .Route Qty: 1 0RF Rx Instructions: As directed (DME) [place] [facility] [place] Rx Instructions .Route Qty: 1 0RF Rx Instructions: As directed lactulose 20 gram/30 mL Solution 30 g PO TID Qty: 2880 0RF omeprazole 40 mg Capsule,Delayed Release(Dr/Ec) 40 mg PO DAILY 56 Days Qty: 142 0RF Rx Instructions: twice daily for 8 weeks then once daily furosemide 40 mg tablet 40 mg PO DAILY Qty: 90 0RF
[2023-07-18 14:35] LABS: MANUAL DIFF FLAG NO
[2023-07-18 14:38] LABS: Basophils Percent Auto 0.9 % (0-2); Eosinophils Absolute Auto 0.2 X10*3/uL (0.0-0.4); Eosinophils Percent Auto 3.3 % (0-4); Hematocrit 26.4 % (42.0-52.0); Hemoglobin 8.9 g/dl (14.0-18.0); Imm Gran Abs Auto 0.01 X10*3/uL (0.00-0.03); Imm Gran Pct Auto 0.2 % (0.0-0.4); Lymphocytes Absolute Auto 1.3 X10*3/uL (1.2-4.9); Lymphocytes Percent Auto 27.3 % (20-40); Mean Corpuscular HGB Conc 33.7 g/dl (31.0-36.0); Mean Corpuscular Hemoglobin 29.4 pg (27.0-33.0); Mean Corpuscular Volume 87.1 fL (80.0-98.0); Mean Platelet Volume 10.8 fL (9.4-12.4); Monocytes Absolute Auto 0.6 X10*3/uL (0.1-1.2); Monocytes Percent Auto 13.5 % (2-11); Neutrophils Absolute Auto 2.5 x10*3/uL (2.0-8.3); Neutrophils Percent Auto 54.8 % (45-73); Platelet Count 186 X10*3/uL (160-400); Red Blood Count 3.03 X10*6/uL (4.60-5.80); Red Cell Distribution Width 17.4 % (11.0-16.0); White Blood Count 4.6 X10*3/uL (4.8-10.8)
[2023-07-18 14:43] LABS: INTERNATIONAL NORM RATIO 1.5 (0.9-1.1); Prothrombin Time 18.4 SEC (11.1-13.3)
--- NOTE | 2023-07-18 14:43 | ECG_ITS ---
Test Reason : WEAKNESS Blood Pressure : / mmHG Vent. Rate : 055 BPM Atrial Rate : 055 BPM P-R Int : 192 ms QRS Dur : 138 ms QT Int : 518 ms P-R-T Axes : 030 -28 003 degrees QTc Int : 495 ms Sinus bradycardia Right bundle branch block Abnormal ECG When compared with ECG of 04-NOV-2022 09:40, No significant change was found Referred By: Tiana Pitt Electronically Signed By:JACE MOY MD
[2023-07-18 14:44] LABS: Ammonia 196 umol/L (13-55)
[2023-07-18 14:47] LABS: Lactic Acid 1.7 mmol/L (0.5-2.0)
[2023-07-18 14:52] LABS: Alanine Aminotransferase 42 U/L (0-40); Albumin Level 2.9 g/dL (3.5-5.0); Alkaline Phosphatase 154 U/L (39-117); Anion Gap 9 (12-20); Aspartate Amino Transferase 75 U/L (5-37); Bilirubin Total 1.6 mg/dL (0.0-1.0); Blood Urea Nitrogen 17 mg/dL (9-16); Calcium 8.6 mg/dL (8.4-10.2); Carbon Dioxide 22 mmol/L (22-29); Chloride 116 mmol/L (96-108); Creatinine Clr Calc Pharmacy 79.6; Estimated Glomerular Filt Rate > 60; Ethanol < 10 mg/dL; Glucose Random 105 mg/dL (60-115); Magnesium 2.1 mg/dL (1.6-2.6); Potassium 4.1 mmol/L (3.3-5.1); Sodium 143 mmol/L (135-145); Total Protein 7.4 g/dL (6.5-8.0)
[2023-07-18 15:23] LABS: Influenza A PCR NEGATIVE (Negative); Influenza B PCR NEGATIVE (Negative); Resp Syncy Virus RNA Qual PCR NEGATIVE (Negative); SARS COV2 PCR INHOUSE NEGATIVE (Negative)
[2023-07-18 18:18] VITALS: BP 108/56; PULSE 53; RESP 16; TEMP 36.5; O2SAT 97
[2023-07-18 21:21] VITALS: BP 103/48; PULSE 61; RESP 16; TEMP 36.6; O2SAT 100
[2023-07-18] MEDS: Lactulose 20 GM/30 ML SOLUTION 30 GM PO (22:19)
--- NOTE | 2023-07-18 22:21 | PM.IMHP ---
History of Present Illness Date of Service: 07/18/23 Attending physician on admission: Howie Hayes Chief Complaint: confusion, lethargy 57-year-old male with history of alcohol dependence in early remission (last drink 05/30/2023), GERD, and decompensated alcoholic cirrhosis with hepatic encephalopathy presents to the ED earlier today accompanied by his sister, Rubi, who assists with history due to lightheadedness, weakness, lethargy, and confusion ongoing for the last 3 days. The patient reports he has been compliant with lactulose. Appears there has a prescription for rifaximin but he has not been taking this as they have been unable to secure this from the pharmacy for unknown reason. He states that he has been having 3-4 bowel movements per day but reports them as hard and very small. He is oriented x3 but does feel slightly disoriented. His sister reports that he has been behaving atypically and has been shaking more than normal. Denies any fevers, chills, abdominal pain, nausea, vomiting, melena, hematochezia, palpitations, syncope, chest pain. He has reported wheezing, shortness of breath, and occasionally productive cough ongoing since he was last discharged on 07/05, but worsening over the last few days. Has albuterol at home but has not been using this. Has no known diagnosis of chronic lung disease. On arrival, blood pressure is soft but consistent with baseline, otherwise stable. There is mild leukopenia 4.6. Stable normocytic anemia with H/H 9.9/26.4%. Platelets 186. Renal function consistent with baseline, electrolyte levels normal except for chloride which is again chronically elevated. Total bilirubin 1.6, AST 75, ALT 42. Ammonia level 196. Ethyl alcohol level undetectable. Negative for COVID-19, influenza, RSV. Chest x-ray radiology report is pending but appears to be negative for any focal consolidation with possible mild pulmonary vascular congestion. In the ED, given 30 g lactulose. Patient will be admitted for further management of hepatic encephalopathy. Review of Systems Review of Systems: General: No fevers, malaise, unintentional weight loss. +lethargy HEENT: No blurred vision, diplopia. No sore throat, nasal congestion, rhinorrhea, sinus pain, ear pain Cardiovascular: No chest pain, palpitations, or leg edema Respiratory: +shortness of breath, +wheezing, +cough GI: No abdominal pain, nausea, vomiting, diarrhea, constipation, melena, hematochezia : No dysuria, hematuria, increased urinary frequency, decreased urinary output MSK: No myalgia, back pain Neuro: No headaches, weakness, paresthesias. +confusion, +tremors Skin: No rashes or lesions PMFSH Medical History Abdominal wall swelling Hyperammonemia Hepatic steatosis Diarrhea resulting from infection of the bowel mucosa Liver lesion Substance use Cirrhosis Alcohol use disorder Anemia Anemia Chronic kidney disease Alcohol dependence Surgical History Hx of esophagogastroduodenoscopy History of urologic surgery H/O varicose vein stripping S/P bariatric surgery Social History Household Members: Family Household Members Other:: 2 Housing: Apartment Do you presently have visiting nurse or other home services: No Alcohol intake: former Comment: bed alarm does not work Patient Tobacco Use Status: Former Tobacco user Quit Date: 05/30/23 Tobacco use type: Cigarette Substance Use Type: Crack/Cocaine and Marijuana Advance Directives: Yes Advance Directives on File: Yes Advance Directives Date on File: 06/08/23 service: No Current occupational status: employed Meds Allergies Allergy/AdvReac Type Severity Reaction Status Date / Time No Known Allergies Allergy Verified 06/27/23 12:24 Active Medications: Current Medications Acetaminophen (Acetaminophen 325 Mg Tablet) 650 mg PO Q6H PRN PRN Reason: Pain, Mild (Pain Scale 1-3) Heparin Sodium (Porcine) (Heparin Sodium,Porcine 5,000 Unit/Ml Vial) 5,000 unit SUBCUT Q12H VALERIE Lactulose (Lactulose 20 Gm/30 Ml Solution) 30 gm PO TID VALERIE Ondansetron HCl (Ondansetron Hcl 4 Mg/2 Ml Vial) 4 mg IVPUSH Q8H PRN PRN Reason: Nausea and Vomiting Senna (Sennosides 8.6 Mg Tablet) 17.2 mg PO BEDTIME PRN PRN Reason: Constipation Sodium Chloride (0.9 % Sodium Chloride Flush 3 Ml Syringe) 3 ml IVFLUSH QSHIFT [facility] Home Medications Medication Instructions Recorded Confirmed Last Taken Type melatonin 5 mg tablet 5 - 10 mg PO BEDTIME PRN Insomnia 07/18/23 07/18/23 Unknown History Physical Exam Vital Signs and Narrative: Vital Signs: Last Vital Signs Temp 97.8 F 07/18/23 21:21 Pulse 61 07/18/23 21:21 Resp 16 07/18/23 21:21 BP 103/48 L 07/18/23 21:21 Pulse Ox 100 07/18/23 21:21 O2 Del Method Room Air 07/18/23 21:21 BMI result Body Mass Index 27.1 Constitutional - Awake and Alert, No apparent distress Eyes - PERRLA, EOMI Cardiovascular - S1S2, RRR, 2+ ble edema . +JVD Respiratory - Normal lung expansion, Normal respiratory effort, No respiratory distress, faint crackles RLL Gastrointestinal - NT / ND; +BS; No rebound or guarding. + asterixis Extremities - no calf tenderness bilaterally, no swelling Skin - Warm/Dry Neurological - Alert & oriented x3, CN II-XII in tact Psychological - Appropriate affect Results Labs 07/18/23 14:27 07/18/23 14:27 Labs: Laboratory Results - last 24 hr 07/18/23 14:27 MCV 87.1 MCH 29.4 MCHC 33.7 RDW 17.4 H Plt Count 186 D MPV 10.8 Immature Gran % (Auto) 0.2 Neut % (Auto) 54.8 Lymph % (Auto) 27.3 [place] % (Auto) 13.5 H Eos % (Auto) 3.3 Baso % (Auto) 0.9 Lymph # (Auto) 1.3 [place] # (Auto) 0.6 Eos # (Auto) 0.2 Baso # (Auto) 0.0 Abs Immat Gran (auto) 0.01 Absolute Neuts (auto) 2.5 Absolute Nucleated RBC 0.000 Nucleated RBC % (auto) 0.0 PT 18.4 H INR 1.5 H Anion Gap 9 L Estim Creat Clear Calc 79.6 Estimated GFR > 60 Random Glucose 105 Lactic Acid 1.7 Calcium 8.6 Magnesium 2.1 Total Bilirubin 1.6 H AST 75 H ALT 42 H Alkaline Phosphatase 154 H Ammonia 196 H Total Protein 7.4 Albumin 2.9 L Ethyl Alcohol < 10 Influenza Type A (PCR) NEGATIVE Influenza Type B (PCR) NEGATIVE RSV RNA Qual (PCR) NEGATIVE SARS-CoV-2 RNA (RT-PCR) NEGATIVE Assessment and Plan (1) Hepatic encephalopathy: Status: Acute (2) CHF exacerbation: Status: Acute Plan 57-year-old male with history of alcohol dependence in early remission (last drink 05/30/2023), GERD, and decompensated alcoholic cirrhosis with hepatic encephalopathy admitted for hepatic encephalopathy. # acute decompensation of alcoholic cirrhosis with acute toxic metabolic encephalopathy/hepatic encephalopathy -ammonia 198, + asterixis -increase lactulose to 30 g q.i.d. -resume rifaximin 550 mg b.i.d. -GI consult -monitor mentation #CHF exacerbation -patient with positive JVD, dyspnea, wheezing with what appears to be increased pulmonary vascular congestion on my interpretation of chest x-ray -BNP ordered -40 mg IV Lasix daily -last echocardiogram 05/2023 showed normal LV systolic function with EF 55-60% and reportedly normal diastolic function for age -cardiac diet -strict I&O -follow renal function, lytes #Possible viral URI -cxr pending -negative COVID-19, RSV, influenza -symptomatic management guaifenesin and albuterol p.r.n. # GERD -PPI # history of alcohol dependence in early remission -ethyl alcohol level undetectable, continue thiamine DVT prophylaxis-heparin Full code Patient requires inpatient stay at least 2 midnights for management of acutely decompensated alcoholic cirrhosis with hepatic encephalopathy requiring close monitoring of mentation, titration of lactulose dosing as well as IV diuresis due to volume overload with expert consultation close monitoring of renal function electrolyte levels Quality Stroke Does the patient have a stroke diagnosis?: No VTE Prior VTE?: No VTE Risk Level:: Medical - moderate - high VTE Device Contraindication: Treatment Not Indicated VTE Drug Contraindication: N/A - Med Ordered
--- NOTE | 2023-07-18 22:24 | PHA.MEDREC ---
Pharmacy Consult ? Medication Reconciliation Pharmacy has completed the medication reconciliation. Patient family report medications. Reports no taking Xifaxan although just prescribed on 07/14/23. Report there was an antibiotic being delivered from [facility] pharmacy however no claim history for the medications. The only claim history is for Xifaxan. Left Xifaxan unconfirmed on claim history as patient recently prescribed but either has not been taking or has not started it. Hospitalist aware as JIGAR Lee was in room while discussing medication with patient. Debora Rider, PattD
[2023-07-18 22:52] VITALS: BP 107/60; PULSE 67; RESP 20; TEMP 36.6; O2SAT 99
[2023-07-18 23:41] LABS: B Type Natriuretic Peptide 229 pg/mL (<100)
[2023-07-19] VITALS (7 sets, daily range): BP systolic 85–105; BP diastolic 52–64; PULSE 64–78; RESP 16–20; TEMP 36.2–37.2; O2SAT 96–99; BMI 26.9
[2023-07-19] MEDS: Heparin Sodium,Porcine 5,000 UNIT/ML VIAL 5000 UNIT SUBCUT ×3 (00:54→22:08)
[2023-07-19] MEDS: rifAXIMin 550 MG TABLET PO ×3 (00:55→22:08)
[2023-07-19] MEDS: Lactulose 20 GM/30 ML SOLUTION 30 GM PO ×5 (00:55→22:08)
[2023-07-19] MEDS: 0.9 % Sodium Chloride Flush 3 ML SYRINGE IVFLUSH ×3 (01:25→22:09)
[2023-07-19 01:34] LABS: Appearance Urine Clear; Color Urine Dark Yellow; Glucose Urine UA Negative (Negative); Leukocyte Esterase Urine Negative (Negative); Nitrite Urine Negative (Negative); Urine Blood Negative (Negative); Urine Ketones Negative (Negative); Urine Protein Negative (Neg-Trace)
[2023-07-19 04:41] LABS: Ammonia 142 umol/L (13-55)
[2023-07-19] MEDS: Omeprazole 40 MG CAPSULE.DR PO (06:17)
[2023-07-19 06:28] LABS: MANUAL DIFF FLAG NO
[2023-07-19 06:36] LABS: Basophils Absolute Auto 0.1 X10*3/uL (0.0-0.2); Basophils Percent Auto 0.9 % (0-2); Eosinophils Absolute Auto 0.2 X10*3/uL (0.0-0.4); Eosinophils Percent Auto 3.3 % (0-4); Hematocrit 25.2 % (42.0-52.0); Hemoglobin 8.7 g/dl (14.0-18.0); Imm Gran Abs Auto 0.02 X10*3/uL (0.00-0.03); Imm Gran Pct Auto 0.4 % (0.0-0.4); Lymphocytes Absolute Auto 1.9 X10*3/uL (1.2-4.9); Lymphocytes Percent Auto 34.6 % (20-40); Mean Corpuscular HGB Conc 34.5 g/dl (31.0-36.0); Mean Corpuscular Volume 86.9 fL (80.0-98.0); Mean Platelet Volume 11.6 fL (9.4-12.4); Monocytes Absolute Auto 0.7 X10*3/uL (0.1-1.2); Monocytes Percent Auto 13.2 % (2-11); Neutrophils Absolute Auto 2.6 x10*3/uL (2.0-8.3); Neutrophils Percent Auto 47.6 % (45-73); Platelet Count 201 X10*3/uL (160-400); Red Cell Distribution Width 17.2 % (11.0-16.0); White Blood Count 5.4 X10*3/uL (4.8-10.8)
[2023-07-19 07:00] LABS: Alanine Aminotransferase 39 U/L (0-40); Albumin Level 2.7 g/dL (3.5-5.0); Alkaline Phosphatase 145 U/L (39-117); Anion Gap 10 (12-20); Aspartate Amino Transferase 70 U/L (5-37); Bilirubin Direct 0.8 mg/dL (0.0-0.5); Bilirubin Total 1.5 mg/dL (0.0-1.0); Blood Urea Nitrogen 18 mg/dL (9-16); Calcium 8.7 mg/dL (8.4-10.2); Carbon Dioxide 20 mmol/L (22-29); Chloride 118 mmol/L (96-108); Estimated Glomerular Filt Rate > 60; Glucose Random 79 mg/dL (60-115); Sodium 144 mmol/L (135-145)
--- NOTE | 2023-07-19 07:00 | CA_ITS ---
Transthoracic Echocardiogram Patient (Last, First, Middle): Jonathon Dan, Gender: Male Date of : 1965 Age: 57 Procedure Date: 07/19/2023 Procedure Type: Transthoracic Echocardiogram Location: ER Height: 182. cm Weight: 89.81 kg BSA: 2.11 m2 Heart Rate: 67 bpm BP: 198 / 65 mmHg Transaction Manager: ANGIE Referring MD: Sophie Tejada NP Clerk Guide: Tanner Golden MD Symptoms: CHF, ? pulm htn Study Quality: Adequate/limited ordered ECG Rhythm: Sinus Conclusions: - 1. Normal LV systolic and diastolic function 2. Normal RV systolic pressure Findings Left Ventricle Normal left ventricular size, thickness, and systolic function. The visually estimated ejection fraction is between 60-65%. Diastolic function is normal for age. Right Ventricle Normal right ventricular cavity size and systolic function. Tricuspid Valve Normal right atrial pressure. There is no evidence of pulmonary hypertension. Measurements 2D Linear Measurements IVSd: 1.20 0.6-0.9/0.6-1.0 cm LVIDd: 4.72 3.9-5.3/4.2-5.9 cm LVIDd Index: 2.24 2.4-3.2/2.2-3.1 cm/m2 LVIDs: 2.86 2.0-3.6 cm LVPWd: 1.26 0.7-1.1 cm LV Mass: 275.59 67-162/88-224 g LV Mass Index: 130.61 43-95/49-115 g/m2 2D Systolic Function EF 4C: 69.00 >55% EF 2C: 48.20 >55% EF BiP: 60.80 >55% Mitral Valve MV Pk E: 1.02 MV PK A: 0.60 MV Decel Time: 266.00 E/A: 1.70 E'Lateral: 13.40 E'Medial: 9.36 E/E' Med: 10.90 E/E' Lat: 7.60 PHT: 78.00 MVA PHT: 2.82 Decel [place]: 3.83 Diastolic Function MV Pk E: 1.02 MV Pk A: 0.60 E/A: 1.70 E'Medial: 9.36 E/E' Med: 10.90 E' Laterial: 13.40 E/E' Lat: 7.60 Right Ventricle TAPSE (mm): 32.00 TVS' Mayank: 14.00 Tricuspid Valve TR Pk Mayank: 1.14 TR Pk Grad: 5.00 RA Press: 3.00 RVSP: 8.00 Updated in Other Vendor System with Status of Final Tanner Golden MD electronically signed on 07/19/2023 3:43:44 PM with status of Final
--- NOTE | 2023-07-19 09:43 | MHC.CM.PN ---
pt lives with sister has hvns l sister will transport home when dcd
[2023-07-19] MEDS: Multivitamin TABLET 1 TAB PO (10:20)
[2023-07-19] MEDS: Thiamine HCL 100 MG TABLET PO (10:20)
[2023-07-19] MEDS: Furosemide 40 MG/4 ML VIAL IVPUSH (10:25)
--- NOTE | 2023-07-19 11:14 | HO.PM.IMPN ---
Subjective Subjective Date of Service: 07/19/23 Review of Systems Follow-up hepatic encephalopathy, CHF Awake and alert with asterixis Denies pain Physical Exam Vital Signs: Vital Signs: Last Vital Signs Temp 97.7 F 07/19/23 09:12 Pulse 75 07/19/23 09:12 Resp 16 07/19/23 09:12 BP 105/61 07/19/23 09:12 Pulse Ox 98 07/19/23 09:12 O2 Del Method Room Air 07/19/23 09:12 BMI result Body Mass Index 26.9 Appearing in no acute distress lung sounds are clear to auscultation heart regular rate rhythm, clear S1, S2 positive bowel sounds, abdomen is soft, nontender neuro patient is alert x3, no focal deficits Noted asterixis Objective Data Active Medications Acetaminophen (Acetaminophen 325 Mg Tablet) 650 mg PO Q6H PRN PRN Reason: Pain, Mild (Pain Scale 1-3) Albuterol Sulfate (Albuterol Sulfate 90 Mcg 8 Gm Inhaler) 2 puff INHALE Q4H PRN PRN Reason: Shortness of Breath/Wheezing Furosemide (Furosemide 40 Mg/4 Ml Vial) 40 mg IVPUSH DAILY [facility]; Protocol Last Admin: 07/19/23 10:25 Dose: 20 mg Documented By: JEFFERSON Comments: per md only administer half dose, 20mg Guaifenesin (Guaifenesin 200 Mg/10 Ml 10 Ml Liquid) 10 ml PO Q4H PRN PRN Reason: Cough Heparin Sodium (Porcine) (Heparin Sodium,Porcine 5,000 Unit/Ml Vial) 5,000 unit SUBCUT Q12H [facility] Last Admin: 07/19/23 10:20 Dose: 5,000 unit Documented By: JEFFERSON Lactulose (Lactulose 20 Gm/30 Ml Solution) 30 gm PO QID [facility] Last Admin: 07/19/23 10:20 Dose: 30 gm Documented By: JEFFERSON Melatonin (Melatonin 3 Mg Tablet) 9 mg PO BEDTIME PRN PRN Reason: Insomnia Multivitamins/Vitamin C (Multivitamin Tablet) 1 tab PO DAILY [facility] Last Admin: 07/19/23 10:20 Dose: 1 tab Documented By: JEFFERSON Omeprazole (Omeprazole 40 Mg Mikayla.) 40 mg PO DAILY@0630 [facility] Last Admin: 07/19/23 06:17 Dose: 40 mg Documented By: LUIS Ondansetron HCl (Ondansetron Hcl 4 Mg/2 Ml Vial) 4 mg IVPUSH Q8H PRN PRN Reason: Nausea and Vomiting Rifaximin (Rifaximin 550 Mg Tablet) 550 mg PO BID [facility] Last Admin: 07/19/23 10:20 Dose: 550 mg Documented By: JEFFERSON Senna (Sennosides 8.6 Mg Tablet) 17.2 mg PO BEDTIME PRN PRN Reason: Constipation Sodium Chloride (0.9 % Sodium Chloride Flush 3 Ml Syringe) 3 ml IVFLUSH QSHIFT [facility] Last Admin: 07/19/23 08:19 Dose: 3 ml Documented By: QUIN Thiamine HCl (Thiamine Hcl 100 Mg Tablet) 100 mg PO DAILY [facility] Last Admin: 07/19/23 10:20 Dose: 100 mg Documented By: JEFFERSON Labs 07/19/23 04:31 07/19/23 04:31 Labs: Laboratory Results - last 24 hr 07/18/23 07/18/23 07/19/23 14:27 23:10 01:18 MCV 87.1 MCH 29.4 MCHC 33.7 RDW 17.4 H Plt Count 186 D MPV 10.8 Immature Gran % (Auto) 0.2 Neut % (Auto) 54.8 Lymph % (Auto) 27.3 [place] % (Auto) 13.5 H Eos % (Auto) 3.3 Baso % (Auto) 0.9 Lymph # (Auto) 1.3 [place] # (Auto) 0.6 Eos # (Auto) 0.2 Baso # (Auto) 0.0 Abs Immat Gran (auto) 0.01 Absolute Neuts (auto) 2.5 Absolute Nucleated RBC 0.000 Nucleated RBC % (auto) 0.0 PT 18.4 H INR 1.5 H Anion Gap 9 L Estim Creat Clear Calc 79.6 Estimated GFR > 60 Random Glucose 105 Lactic Acid 1.7 Calcium 8.6 Magnesium 2.1 Total Bilirubin 1.6 H Direct Bilirubin AST 75 H ALT 42 H Alkaline Phosphatase 154 H Ammonia 196 H B-Natriuretic Peptide 229 H Total Protein 7.4 Albumin 2.9 L Urine Color Dark Yellow Urine Appearance Clear Urine pH 6.0 Ur Specific [place] 1.020 Urine Protein Negative Urine Glucose (UA) Negative Urine Ketones Negative Urine Blood Negative Urine Nitrite Negative Ur Leukocyte Esterase Negative Ethyl Alcohol < 10 Influenza Type A (PCR) NEGATIVE Influenza Type B (PCR) NEGATIVE RSV RNA Qual (PCR) NEGATIVE SARS-CoV-2 RNA (RT-PCR) NEGATIVE 07/19/23 04:31 MCV 86.9 MCH 30.0 MCHC 34.5 RDW 17.2 H Plt Count 201 MPV 11.6 Immature Gran % (Auto) 0.4 Neut % (Auto) 47.6 Lymph % (Auto) 34.6 [place] % (Auto) 13.2 H Eos % (Auto) 3.3 Baso % (Auto) 0.9 Lymph # (Auto) 1.9 [place] # (Auto) 0.7 Eos # (Auto) 0.2 Baso # (Auto) 0.1 Abs Immat Gran (auto) 0.02 Absolute Neuts (auto) 2.6 Absolute Nucleated RBC 0.000 Nucleated RBC % (auto) 0.0 PT INR Anion Gap 10 L Estim Creat Clear Calc 88.0 Estimated GFR > 60 Random Glucose 79 Lactic Acid Calcium 8.7 Magnesium Total Bilirubin 1.5 H Direct Bilirubin 0.8 H AST 70 H ALT 39 Alkaline Phosphatase 145 H Ammonia 142 H B-Natriuretic Peptide Total Protein 7.0 Albumin 2.7 L Urine Color Urine Appearance Urine pH Ur Specific [place] Urine Protein Urine Glucose (UA) Urine Ketones Urine Blood Urine Nitrite Ur Leukocyte Esterase Ethyl Alcohol Influenza Type A (PCR) Influenza Type B (PCR) RSV RNA Qual (PCR) SARS-CoV-2 RNA (RT-PCR) Assessment and Plan (1) Acute hepatic encephalopathy: Status: Resolved Plan 57-year-old male with history of alcohol dependence in early remission (last drink 05/30/2023), GERD, and decompensated alcoholic cirrhosis with hepatic encephalopathy admitted for hepatic encephalopathy. Hypoalbuminemia Secondary to liver disease and malnutrition s/p albumin 57-year-old male with history of alcohol dependence in early remission (last drink 05/30/2023), GERD, and decompensated alcoholic cirrhosis with hepatic encephalopathy admitted for hepatic encephalopathy. Acute decompensation of alcoholic cirrhosis with acute toxic metabolic encephalopathy/hepatic encephalopathy ammonia 198, + asterixis increase lactulose to 30 g q.i.d. resume rifaximin 550 mg b.i.d. GI consult monitor mentation HFpEF exacerbation patient with positive JVD, dyspnea, wheezing with what appears to be increased pulmonary vascular congestion on my interpretation of chest x-ray BNP 229 20 mg IV Lasix daily last echocardiogram 05/2023 showed normal LV systolic function with EF 55-60% and reportedly normal diastolic function for age cardiac diet strict I&O limited echo as per cardiology to assess for LVEF and pulm htn Possible viral URI cxr without consoldidation negative COVID-19, RSV, influenza symptomatic management guaifenesin and albuterol p.r.n. GERD PPI History of alcohol dependence in early remission ethyl alcohol level undetectable continue thiamine DVT prophylaxis-heparin Full code continue hospital stay for management of acutely decompensated alcoholic cirrhosis with hepatic encephalopathy requiring close monitoring of mentation, titration of lactulose dosing as well as IV diuresis due to volume overload with expert consultation close monitoring of renal function electrolyte levels Quality Stroke Does the patient have a stroke diagnosis?: No VTE Prior VTE?: No VTE Risk Level:: Medical - moderate - high VTE Device Contraindication: Treatment Not Indicated VTE Drug Contraindication: N/A - Med Ordered
--- NOTE | 2023-07-19 12:26 | P.CONCA_ITS ---
History of Present Illness History of Present Illness Date of Service: 07/19/23 Requesting physician: Sophie Tejada Consult reason: other (Possible CHF) Chief complaint: hepatic encephalopathy Narrative: I was consulted to see Jonathon in cardiology consultation today for elevated BNP and shortness of breath with possible findings suggestive of right heart failure. This 57-year-old male with cirrhosis of liver related to alcohol use with ascites as well as prior liver decompensation with hyperammonemia, came to the hospital with altered mental status brought in by the sister. Was noted to have liver decompensation and was admitted. However is also noted to be short of breath and was noted to have fluid overload. He said he is almost has constant abdominal distension has leg edema. He has not noticed any significant shortness of breath. His mental status looks much better compared to reported in the chart. He denies any clear orthopnea, PND. He had an echocardiogram in May which look like showing normal LV systolic function without any significant elevation of right-sided pressures and no evidence of pulmonary hypertension. He has been given Lasix 20 mg IV push daily. Review of Systems 2 Constitutional: Constitutional: Reports other (Confusion) Eyes: Eyes: Reports no additional eye complaints Cardiovascular: Cardiovascular: Reports Abdominal Distension, Denies chest pain, Reports leg edema, Denies Loss of Consciousness, Denies palpitations and Reports dyspnea on exertion Respiratory: Respiratory: Reports no additional respiratory complaints and Reports dyspnea on exertion Neurologic: Reports system reviewed and no additional complaints, except as documented Psychiatric: Psychiatric: Reports no additional psychiatric complaints Endocrine: Endocrine: Denies palpitations PMFSH Past Medical History Medical History Abdominal wall swelling Hyperammonemia Hepatic steatosis Diarrhea resulting from infection of the bowel mucosa Liver lesion Substance use Cirrhosis Alcohol use disorder Anemia Anemia Chronic kidney disease Alcohol dependence Surgical History Surgical History Hx of esophagogastroduodenoscopy History of urologic surgery H/O varicose vein stripping S/P bariatric surgery Social History Social History Household Members: Family Household Members Other:: 2 Housing: Apartment Do you presently have visiting nurse or other home services: Yes (PT) Alcohol intake: former Comment: bed alarm does not work Patient Tobacco Use Status: Former Tobacco user Quit Date: 05/30/23 Tobacco use type: Cigarette Second Hand Smoke Exposure: No Substance Use Type: Crack/Cocaine and Marijuana Advance Directives Date on File: 06/08/23 service: No Current occupational status: employed Meds Allergies Allergy/AdvReac Type Severity Reaction Status Date / Time No Known Allergies Allergy Verified 07/19/23 09:54 Active Medications: Current Medications Acetaminophen (Acetaminophen 325 Mg Tablet) 650 mg PO Q6H PRN PRN Reason: Pain, Mild (Pain Scale 1-3) Albuterol Sulfate (Albuterol Sulfate 90 Mcg 8 Gm Inhaler) 2 puff INHALE Q4H PRN PRN Reason: Shortness of Breath/Wheezing Furosemide (Furosemide 40 Mg/4 Ml Vial) 20 mg IVPUSH DAILY [facility]; Protocol Guaifenesin (Guaifenesin 200 Mg/10 Ml 10 Ml Liquid) 10 ml PO Q4H PRN PRN Reason: Cough Heparin Sodium (Porcine) (Heparin Sodium,Porcine 5,000 Unit/Ml Vial) 5,000 unit SUBCUT Q12H [facility] Last Admin: 07/19/23 10:20 Dose: 5,000 unit Lactulose (Lactulose 20 Gm/30 Ml Solution) 30 gm PO QID [facility] Last Admin: 07/19/23 12:20 Dose: 30 gm Melatonin (Melatonin 3 Mg Tablet) 9 mg PO BEDTIME PRN PRN Reason: Insomnia Multivitamins/Vitamin C (Multivitamin Tablet) 1 tab PO DAILY [facility] Last Admin: 07/19/23 10:20 Dose: 1 tab Omeprazole (Omeprazole 40 Mg Capsule.Dr) 40 mg PO DAILY@0630 [facility] Last Admin: 07/19/23 06:17 Dose: 40 mg Ondansetron HCl (Ondansetron Hcl 4 Mg/2 Ml Vial) 4 mg IVPUSH Q8H PRN PRN Reason: Nausea and Vomiting Rifaximin (Rifaximin 550 Mg Tablet) 550 mg PO BID [facility] Last Admin: 07/19/23 10:20 Dose: 550 mg Senna (Sennosides 8.6 Mg Tablet) 17.2 mg PO BEDTIME PRN PRN Reason: Constipation Sodium Chloride (0.9 % Sodium Chloride Flush 3 Ml Syringe) 3 ml IVFLUSH QSHIFT [facility] Last Admin: 07/19/23 08:19 Dose: 3 ml Thiamine HCl (Thiamine Hcl 100 Mg Tablet) 100 mg PO DAILY [facility] Last Admin: 07/19/23 10:20 Dose: 100 mg Home Medications Medication Instructions Recorded Confirmed Last Taken Type melatonin 5 mg tablet 5 - 10 mg PO BEDTIME PRN Insomnia 07/18/23 07/18/23 Unknown History Physical Exam 2 Vital Signs: Vital Signs: Last Vital Signs Temp 97.7 F 07/19/23 09:12 Pulse 75 07/19/23 09:12 Resp 16 07/19/23 09:12 BP 105/61 07/19/23 09:12 Pulse Ox 98 07/19/23 09:12 O2 Del Method Room Air 07/19/23 09:12 BMI result Body Mass Index 26.9 Const: General: cooperative, alert, awake and in distress mild and respiratory Nutritional Appearance: malnourished Orientation/consciousness: patient oriented x3 HEENT: Head: Yes normocephalic and Yes atraumatic Neck: Neck: Yes trachea midline, Yes supple and Yes JVD Resp: Effort & Inspection: normal respiratory effort Auscultation: clear to auscultation bilaterally and diminished lung sounds Cardio: Jugular venous distension: JVD Rate: regular rate Rhythm: r egular rhythm Heart sounds: S1 normal heart sound present, S2 normal heart sound present, no click, no gallops, no murmurs and no rubs GI: Inspection: Yes distended Auscultation: normal bowel sounds Skin: General skin exam: no rashes or lesions noted Neuro: General: patient oriented x3 and no focal motor deficits Extrem: General: No clubbing, No cyanosis and Yes edema Objective Labs and Meds 07/19/23 04:31 07/19/23 04:31 Lab results: Laboratory Results - last 24 hr 07/18/23 07/18/23 07/19/23 14:27 23:10 01:18 WBC 4.6 L RBC 3.03 L Hgb 8.9 L Hct 26.4 L MCV 87.1 MCH 29.4 MCHC 33.7 RDW 17.4 H Plt Count 186 D MPV 10.8 Immature Gran % (Auto) 0.2 Neut % (Auto) 54.8 Lymph % (Auto) 27.3 [place] % (Auto) 13.5 H Eos % (Auto) 3.3 Baso % (Auto) 0.9 Lymph # (Auto) 1.3 [place] # (Auto) 0.6 Eos # (Auto) 0.2 Baso # (Auto) 0.0 Abs Immat Gran (auto) 0.01 Absolute Neuts (auto) 2.5 Absolute Nucleated RBC 0.000 Nucleated RBC % (auto) 0.0 PT 18.4 H INR 1.5 H Sodium 143 Potassium 4.1 Chloride 116 H Carbon Dioxide 22 Anion Gap 9 L BUN 17 H Creatinine 1.15 Estim Creat Clear Calc 79.6 Estimated GFR > 60 Random Glucose 105 Lactic Acid 1.7 Calcium 8.6 Magnesium 2.1 Total Bilirubin 1.6 H Direct Bilirubin AST 75 H ALT 42 H Alkaline Phosphatase 154 H Ammonia 196 H B-Natriuretic Peptide 229 H Total Protein 7.4 Albumin 2.9 L Urine Color Dark Yellow Urine Appearance Clear Urine pH 6.0 Ur Specific [place] 1.020 Urine Protein Negative Urine Glucose (UA) Negative Urine Ketones Negative Urine Blood Negative Urine Nitrite Negative Ur Leukocyte Esterase Negative Ethyl Alcohol < 10 Influenza Type A (PCR) NEGATIVE Influenza Type B (PCR) NEGATIVE RSV RNA Qual (PCR) NEGATIVE SARS-CoV-2 RNA (RT-PCR) NEGATIVE 07/19/23 04:31 WBC 5.4 RBC 2.90 L Hgb 8.7 L Hct 25.2 L MCV 86.9 MCH 30.0 MCHC 34.5 RDW 17.2 H Plt Count 201 MPV 11.6 Immature Gran % (Auto) 0.4 Neut % (Auto) 47.6 Lymph % (Auto) 34.6 [place] % (Auto) 13.2 H Eos % (Auto) 3.3 Baso % (Auto) 0.9 Lymph # (Auto) 1.9 [place] # (Auto) 0.7 Eos # (Auto) 0.2 Baso # (Auto) 0.1 Abs Immat Gran (auto) 0.02 Absolute Neuts (auto) 2.6 Absolute Nucleated RBC 0.000 Nucleated RBC % (auto) 0.0 PT INR Sodium 144 Potassium 4.0 Chloride 118 H Carbon Dioxide 20 L Anion Gap 10 L BUN 18 H Creatinine 1.04 Estim Creat Clear Calc 88.0 Estimated GFR > 60 Random Glucose 79 Lactic Acid Calcium 8.7 Magnesium Total Bilirubin 1.5 H Direct Bilirubin 0.8 H AST 70 H ALT 39 Alkaline Phosphatase 145 H Ammonia 142 H B-Natriuretic Peptide Total Protein 7.0 Albumin 2.7 L Urine Color Urine Appearance Urine pH Ur Specific [place] Urine Protein Urine Glucose (UA) Urine Ketones Urine Blood Urine Nitrite Ur Leukocyte Esterase Ethyl Alcohol Influenza Type A (PCR) Influenza Type B (PCR) RSV RNA Qual (PCR) SARS-CoV-2 RNA (RT-PCR) Imaging Radiologist's impression: Impressions Chest X-Ray 07/18/23 22:25 IMPRESSION: Low lung volumes. Left perihilar subsegmental atelectasis. Distended bowel below the diaphragm. Assessment and Plan (1) CHF exacerbation: Status: Acute Agree with clinical findings of right heart failure with elevated central venous pressure as well as leg edema and ascites. Although leg edema and ascites can be seen and patient has cirrhosis as well. This is unusual. He also has slightly elevated BNP. Question pulmonary hypertension related to portal pulmonary hypertension. Obtain a limited echocardiogram. LV systolic dysfunction acutely is less likely although limited echocardiogram will assess for the same. Would carefully diurese him given his history of cirrhosis and to avoid significant intravascular volume depletion which can trigger hepatorenal syndrome. In the past he had hyperkalemia therefore not sure he would be a good candidate for spironolactone. Continue to monitor for signs and symptoms and closely follow his renal function. Strict intake and output chart needs to be pursued. Will follow-up after that. Will follow with you. Thank you for allowing me to partake in his care Procedures Date of Service Date of Service: 07/19/23
--- NOTE | 2023-07-19 12:35 | P.CNGI_ITS ---
History of Present Illness Data of Consult Service Date: 07/19/23 Requesting physician: Rosa Zuniga Primary Care Provider: Arin Nelson MD [facility] Reason for consult: Encephalopathy This is a 57-year-old gentleman with past medical history of polysubstance use disorder including alcohol and cocaine, who was brought to the hospital by his sister for lightheadedness and confusion. Gastroenterology consulted for management of hepatic encephalopathy. This is his 4th admission since May of this year. Previously, has been seen for management of cirrhosis, anemia ascites and hepatic encephalopathy. Patient reports was experiencing increased fogginess, sleepiness in his sister noticed shakes in his arms (asterixis) and therefore brought him in. No focal symptoms except mild cough. Reports increased fatigue for the past 1 week. Unclear if he has been taking rifaximin. Says that he did reduce lactulose dose intermittently, as did not like the runs . On initial presentation was noted to be with stable vitals labs significant for anemia at baseline, with improving platelet count. Improving INR. Chem 7 with creatinine up to 1.1 which has improved today. LFTs at his baseline. Workup so far is suggestive of possible pulmonary edema/CHF exacerbation. Patient is pending a limited echocardiogram. Previous echocardiogram from May with normal LVEF and RVEF. Recent endoscopy: 07/05/2023: EGD: No varices. Portal hypertensive gastropathy. 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 Status post APC 06/01/2023: EGD: Esophagitis with GE junction ulcer. Portal hypertensive gastropathy. Review of Systems 2 Review of Systems: Yes all other systems are reviewed and are negative PMFSH Past Medical History Medical History (Updated 07/19/23 @ 14:53 by Brenna Mena MD) Cirrhosis Anemia Abdominal wall swelling Hyperammonemia Hepatic steatosis Diarrhea resulting from infection of the bowel mucosa Liver lesion Substance use Alcohol use disorder Anemia Chronic kidney disease Alcohol dependence Surgical History Surgical History Hx of esophagogastroduodenoscopy History of urologic surgery H/O varicose vein stripping S/P bariatric surgery Social History Social History Household Members: Family Household Members Other:: 2 Housing: Apartment Do you presently have visiting nurse or other home services: Yes (PT) Alcohol intake: former Comment: bed alarm does not work Patient Tobacco Use Status: Former Tobacco user Quit Date: 05/30/23 Tobacco use type: Cigarette Second Hand Smoke Exposure: No Substance Use Type: Crack/Cocaine and Marijuana Advance Directives Date on File: 06/08/23 service: No Current occupational status: employed Meds Allergies Allergy/AdvReac Type Severity Reaction Status Date / Time No Known Allergies Allergy Verified 07/19/23 09:54 Active Medications: Current Medications Acetaminophen (Acetaminophen 325 Mg Tablet) 650 mg PO Q6H PRN PRN Reason: Pain, Mild (Pain Scale 1-3) Albuterol Sulfate (Albuterol Sulfate 90 Mcg 8 Gm Inhaler) 2 puff INHALE Q4H PRN PRN Reason: Shortness of Breath/Wheezing Furosemide (Furosemide 40 Mg/4 Ml Vial) 20 mg IVPUSH DAILY [facility]; Protocol Guaifenesin (Guaifenesin 200 Mg/10 Ml 10 Ml Liquid) 10 ml PO Q4H PRN PRN Reason: Cough Heparin Sodium (Porcine) (Heparin Sodium,Porcine 5,000 Unit/Ml Vial) 5,000 unit SUBCUT Q12H [facility] Last Admin: 07/19/23 10:20 Dose: 5,000 unit Lactulose (Lactulose 20 Gm/30 Ml Solution) 30 gm PO QID [facility] Last Admin: 07/19/23 12:20 Dose: 30 gm Melatonin (Melatonin 3 Mg Tablet) 9 mg PO BEDTIME PRN PRN Reason: Insomnia Multivitamins/Vitamin C (Multivitamin Tablet) 1 tab PO DAILY [facility] Last Admin: 07/19/23 10:20 Dose: 1 tab Omeprazole (Omeprazole 40 Mg Capsule.Dr) 40 mg PO DAILY@0630 [facility] Last Admin: 07/19/23 06:17 Dose: 40 mg Ondansetron HCl (Ondansetron Hcl 4 Mg/2 Ml Vial) 4 mg IVPUSH Q8H PRN PRN Reason: Nausea and Vomiting Rifaximin (Rifaximin 550 Mg Tablet) 550 mg PO BID [facility] Last Admin: 07/19/23 10:20 Dose: 550 mg Senna (Sennosides 8.6 Mg Tablet) 17.2 mg PO BEDTIME PRN PRN Reason: Constipation Sodium Chloride (0.9 % Sodium Chloride Flush 3 Ml Syringe) 3 ml IVFLUSH QSHIFT [facility] Last Admin: 07/19/23 12:31 Dose: Not Given Thiamine HCl (Thiamine Hcl 100 Mg Tablet) 100 mg PO DAILY [facility] Last Admin: 07/19/23 10:20 Dose: 100 mg Home Medications Medication Instructions Recorded Confirmed Last Taken Type melatonin 5 mg tablet 5 - 10 mg PO BEDTIME PRN Insomnia 07/18/23 07/18/23 Unknown History Physical Exam 2 Vital Signs: Vital Signs: Last Vital Signs Temp 97.7 F 07/19/23 09:12 Pulse 75 07/19/23 09:12 Resp 16 07/19/23 09:12 BP 105/61 07/19/23 09:12 Pulse Ox 98 07/19/23 09:12 O2 Del Method Room Air 07/19/23 09:12 BMI result Body Mass Index 26.9 Frail gentleman, under nourished Bitemporal wasting Abdomen soft, nontender, distended, shifting dullness to percussion Lower extremity with nonpitting edema in the right leg and pitting edema on the left Asterixis ++ Results Labs 07/19/23 04:31 07/19/23 04:31 Labs: Short CBC 07/18/23 07/19/23 Range/Units 14:27 04:31 WBC 4.6 L 5.4 (4.8-10.8) X10*3/uL Hgb 8.9 L 8.7 L (14.0-18.0) g/dl Hct 26.4 L 25.2 L (42.0-52.0) % Plt Count 186 D 201 (160-400) X10*3/uL BMP 07/18/23 07/19/23 14:27 04:31 Sodium 143 144 Potassium 4.1 4.0 Chloride 116 H 118 H Carbon Dioxide 22 20 L BUN 17 H 18 H Creatinine 1.15 1.04 Calcium 8.6 8.7 Liver Function 07/18/23 07/19/23 Range/Units 14:27 04:31 Total Bilirubin 1.6 H 1.5 H (0.0-1.0) mg/dL Direct Bilirubin 0.8 H (0.0-0.5) mg/dL AST 75 H 70 H (5-37) U/L ALT 42 H 39 (0-40) U/L Alkaline Phosphatase 154 H 145 H (39-117) U/L Albumin 2.9 L 2.7 L (3.5-5.0) g/dL Urine 07/19/23 Range/Units 01:18 Urine Color Dark Yellow Urine Appearance Clear Urine pH 6.0 (5.0-9.0) Ur Specific [place] 1.020 (1.005-1.025) Urine Protein Negative (Neg-Trace) mg/dL Urine Glucose (UA) Negative (Negative) mg/dL Assessment and Plan (1) CHF exacerbation: Status: Acute (2) Hepatic encephalopathy: Status: Acute (3) Acute alteration in mental status: Status: Acute (4) Cirrhosis: Status: Acute (5) Anemia: Status: Acute Plan Differentials for ongoing hepatic encephalopathy include infection, GI bleeding, medication on adherence, CHF exacerbation. Patient has stable anemia, and is pending a colonoscopy which has been difficult to coordinate due to his frequent hospital admissions. Sister requests if it can be done inpatient, this will be contingent upon his overall clinical course and cardiac evaluation. Plan: - Check US for ascites and DIAGNOSTIC tap if present - appreciate cardiology input -limited echo pending - patient again counseled for compliance with lactulose. He is unsure if he has been taking rifaximin as outpatient. Pls cont both while pt admitted. - once renal function back to baseline of creatinine 0.9, consider CT abdomen and pelvis with IV contrast rule out splenorenal shunt - Add zinc supplementation. - Nutrition consult. Protein shakes. - Timing of colo depending on results of above Thank you for allowing me to participate in his care. PLease do not hesitate to reach out for questions or concerns. Procedures Date of Service Date of Service: 07/19/23
[2023-07-19] MEDS: Melatonin 3 MG TABLET 9 MG PO (22:08)
[2023-07-20 03:30] VITALS: BP 106/60; PULSE 84; RESP 20; TEMP 36.3; O2SAT 96
[2023-07-20] MEDS: Omeprazole 40 MG CAPSULE.DR PO (06:15)
[2023-07-20 08:00] VITALS: BP 112/64; PULSE 74; RESP 16; TEMP 36.6; O2SAT 96
[2023-07-20] MEDS: Lactulose 20 GM/30 ML SOLUTION 30 GM PO ×4 (08:46→20:37)
[2023-07-20] MEDS: rifAXIMin 550 MG TABLET PO ×2 (08:47→20:37)
[2023-07-20] MEDS: Multivitamin TABLET 1 TAB PO (08:47)
[2023-07-20] MEDS: Zinc Sulfate 220 MG CAPSULE PO (08:47)
[2023-07-20] MEDS: Thiamine HCL 100 MG TABLET PO (08:47)
[2023-07-20] MEDS: 0.9 % Sodium Chloride Flush 3 ML SYRINGE IVFLUSH ×3 (08:49→20:37)
--- NOTE | 2023-07-20 09:14 | P.PNIM_ITS ---
Subjective Subjective Date of Service: 07/20/23 Review of Systems Follow-up hepatic encephalopathy, CHF Awake and alert without asterixis Denies pain Physical Exam 2 Vital Signs: Vital Signs: Last Vital Signs Temp 97.9 F 07/20/23 08:00 Pulse 74 07/20/23 08:00 Resp 16 07/20/23 08:00 BP 112/64 07/20/23 08:00 Pulse Ox 96 07/20/23 08:00 O2 Del Method Room Air 07/20/23 08:00 BMI result Body Mass Index 26.9 Appearing in no acute distress lung sounds are clear to auscultation heart regular rate rhythm, clear S1, S2 positive bowel sounds, abdomen is soft, nontender neuro patient is alert x3, no focal deficits Objective Data Active Medications Acetaminophen (Acetaminophen 325 Mg Tablet) 650 mg PO Q6H PRN PRN Reason: Pain, Mild (Pain Scale 1-3) Albuterol Sulfate (Albuterol Sulfate 90 Mcg 8 Gm Inhaler) 2 puff INHALE Q4H PRN PRN Reason: Shortness of Breath/Wheezing Guaifenesin (Guaifenesin 200 Mg/10 Ml 10 Ml Liquid) 10 ml PO Q4H PRN PRN Reason: Cough Heparin Sodium (Porcine) (Heparin Sodium,Porcine 5,000 Unit/Ml Vial) 5,000 unit SUBCUT Q12H [facility] Last Admin: 07/19/23 22:08 Dose: 5,000 unit Documented By: MAGDALENE Lactulose (Lactulose 20 Gm/30 Ml Solution) 30 gm PO QID [facility] Last Admin: 07/20/23 08:46 Dose: 30 gm Documented By: SHARYN Melatonin (Melatonin 3 Mg Tablet) 9 mg PO BEDTIME PRN PRN Reason: Insomnia Last Admin: 07/19/23 22:08 Dose: 9 mg Documented By: MAGDALENE Multivitamins/Vitamin C (Multivitamin Tablet) 1 tab PO DAILY [facility] Last Admin: 07/20/23 08:47 Dose: 1 tab Documented By: SHARYN Omeprazole (Omeprazole 40 Mg Capsule.) 40 mg PO DAILY@0630 [facility] Last Admin: 07/20/23 06:15 Dose: 40 mg Documented By: MAGDALENE Ondansetron HCl (Ondansetron Hcl 4 Mg/2 Ml Vial) 4 mg IVPUSH Q8H PRN PRN Reason: Nausea and Vomiting Rifaximin (Rifaximin 550 Mg Tablet) 550 mg PO BID [facility] Last Admin: 07/20/23 08:47 Dose: 550 mg Documented By: SHARYN Senna (Sennosides 8.6 Mg Tablet) 17.2 mg PO BEDTIME PRN PRN Reason: Constipation Sodium Chloride (0.9 % Sodium Chloride Flush 3 Ml Syringe) 3 ml IVFLUSH QSHIFT [facility] Last Admin: 07/20/23 08:49 Dose: 3 ml Documented By: SHARYN Thiamine HCl (Thiamine Hcl 100 Mg Tablet) 100 mg PO DAILY [facility] Last Admin: 07/20/23 08:47 Dose: 100 mg Documented By: SHARYN Zinc Sulfate (Zinc Sulfate 220 Mg Capsule) 220 mg PO DAILY [facility] Last Admin: 07/20/23 08:47 Dose: 220 mg Documented By: SHARYN Labs 07/19/23 04:31 07/19/23 04:31 Microbiology Microbiology Results: Microbiology 07/18/23 22:33 Blood Culture - Preliminary Blood - Venous No growth after 24 hours. 07/18/23 14:27 Blood Culture - Preliminary Blood - Venous No growth after 24 hours. Assessment and Plan (1) Acute hepatic encephalopathy: Status: Resolved Plan 57-year-old male with history of alcohol dependence in early remission (last drink 05/30/2023), GERD, and decompensated alcoholic cirrhosis with hepatic encephalopathy admitted for hepatic encephalopathy. Acute decompensation of alcoholic cirrhosis with acute toxic metabolic encephalopathy/hepatic encephalopathy ammonia 198 down to 142, asterixis resolved continue lactulose 30 g q.i.d. continue rifaximin 550 mg b.i.d. GI consult>plan for colonoscopy Tuesday check abd us for acsites today monitor mentation HFpEF exacerbation patient with positive JVD, dyspnea, wheezing with what appears to be increased pulmonary vascular congestion on my interpretation of chest x-ray BNP 229 on admission s/p 20 mg IV Lasix echocardiogram showed normal LV systolic function and no significant pulm htn seen by cardiology> rec stopping Lasix cardiac diet strict I&O Possible viral URI cxr without consolidation negative COVID-19, RSV, influenza symptomatic management guaifenesin and albuterol p.r.n. Hypoalbuminemia Secondary to liver disease and malnutrition chronic GERD PPI History of alcohol dependence in early remission ethyl alcohol level undetectable continue thiamine DVT prophylaxis-heparin Attending Dr. Navarro Full code continue hospital stay for management of acutely decompensated alcoholic cirrhosis with hepatic encephalopathy requiring close monitoring of mentation, titration of lactulose dosing, expert consultation, close monitoring of electrolyte levels Quality Stroke Does the patient have a stroke diagnosis?: No VTE Prior VTE?: No VTE Risk Level:: Medical - moderate - high VTE Device Contraindication: Treatment Not Indicated VTE Drug Contraindication: N/A - Med Ordered
--- NOTE | 2023-07-20 11:13 | PM.PNCARD ---
Subjective Subjective Date of Service: 07/20/23 Principal diagnosis: Hepatic encephalopathy. Interval history: Echocardiogram yesterday showed normal LV ejection fraction with normal diastolic function normal right atrial and right ventricular systolic pressure. His Lasix was discontinued that point time. Continues to have abdominal distension leg edema. Shortness of breath is not present. Review of Systems Constitutional: Reports no additional constitutional complaints Physical Exam Vital Signs: Last Vital Signs Temp 97.9 F 07/20/23 08:00 Pulse 74 07/20/23 08:00 Resp 16 07/20/23 08:00 BP 112/64 07/20/23 08:00 Pulse Ox 96 07/20/23 08:00 O2 Del Method Room Air 07/20/23 08:00 BMI result Body Mass Index 26.9 Const General: cooperative, alert, awake and in distress mild and respiratory Nutritional Appearance: malnourished Orientation/consciousness: patient oriented x3 HEENT Head: Yes normocephalic and Yes atraumatic Neck Neck: Yes trachea midline and Yes supple Resp Effort & Inspection: normal respiratory effort Auscultation: clear to auscultation bilaterally and diminished lung sounds Cardio Rate: regular rate Rhythm: regular rhythm Heart sounds: S1 normal heart sound present, S2 normal heart sound present, no click, no gallops, no murmurs and no rubs GI Inspection: Yes distended Auscultation: normal bowel sounds Skin General skin exam: no rashes or lesions noted Neuro General: patient oriented x3 and no focal motor deficits Extrem General: No clubbing, No cyanosis and Yes edema Objective Labs and Meds 07/19/23 04:31 07/19/23 04:31 Progress Note: A&P Assessment and plan (1) Elevated brain natriuretic peptide (BNP) level: Status: Acute Assessment and Plan: Elevated BNP on admission with no findings of pulmonary hypertension RV dysfunction and or LV systolic or diastolic dysfunction. Could be from fluid overload. Clinically does not appear to be in heart failure today. I do not think he needs Lasix on ongoing basis given his liver cirrhosis unlikely causing prerenal azotemia and cardiorenal syndrome. His ascites and leg edema most likely related to portal hypertension related to cirrhosis at this point time. No further workup is needed from cardiac perspective. Will sign of the case at this point time. Thank you for allowing me to partake in his care Time Spent With Patient Time: Total time managing care of this patient today ____ minutes. Progress Note: Quality Stroke Does the patient have a stroke diagnosis?: No Procedures Date of Service Date of Service: 07/20/23
[2023-07-20] MEDS: Heparin Sodium,Porcine 5,000 UNIT/ML VIAL 5000 UNIT SUBCUT ×2 (11:24→23:30)
--- NOTE | 2023-07-20 11:46 | P.CDIM_ITS ---
PROVIDER RESPONSE TEXT: To clarify, the appropriate diagnosis supported by the clinical indicators: Moderate QUERY TEXT: PHYSICIAN'S DOCUMENTATION REQUEST Date of Query: 07/20/2023 08:36 AM EDT Patient Name: MARICRUZ ALLEN Admit Date: 07/19/2023 Dear Sophie Tejada, A review of the medical record indicates additional documentation may be needed. Please review below and update the documentation accordingly. Documentation includes the diagnosis of malnutrition. Progress note under the Plan: Hypoalbuminemia secondary to liver disease and malnutrition. Undernourished, weakness, lethargic, bitemporal wasting. If possible, please provide additional specificity regarding the severity of the malnutrition using t he above information: Mild Moderate Severe Other (explain) Clinically unable to determine (explain) Thank you, Lula Mason, CCS, CDIS Use of terms such as suspected, likely, concern for, or probable (associated with a specific diagnosi s that is being evaluated, monitored, or treated as if it exists) are acceptable and can be coded in the inpatient se tting, when documented at the time of discharge. Please use your independent medical judgment in providing your response. THIS QUERY IS PART OF THE PERMANENT MEDICAL RECORD
--- NOTE | 2023-07-20 13:48 | MHC.CM.PN ---
EMR REVIEWED AND PER MD ROUNDS, PT IS NOT MEDICALLY CLEARED FOR DC. PT WILL HAVE A COLONOSCOPY 4/5 PER GI. CM WILL CONTINUE TO FOLLOW FOR ANY CHANGE IN DC PLAN/NEEDS.
--- NOTE | 2023-07-20 13:58 | P.CDIM_ITS ---
PROVIDER RESPONSE TEXT: To clarify, the appropriate diagnosis supported by the clinical indicators: Other (explain): no ckd QUERY TEXT: PHYSICIAN'S DOCUMENTATION REQUEST Date of Query: 07/20/2023 09:27 AM EDT Patient Name: MARICRUZ ALLEN Admit Date: 07/19/2023 Dear Sophie Tejada, A review of the medical record indicates additional documentation may be needed. Please review below and update the documentation accordingly. Clinical Indicators: ED and H&P: Past medical history: Chronic kidney disease Cr 1.15 Bun 17 Gfr >60 Please clarify which of the following accurately represents the patient's stage of the CKD if known: CKD, please provide stage Stage 1, 2, 3a, 3b, 4 Other (explain) Clinically unable to determine (explain) Thank you, Lula Mason, CCS, CDIS Use of terms such as suspected, likely, concern for, or probable (associated with a specific diagnosi s that is being evaluated, monitored, or treated as if it exists) are acceptable and can be coded in the inpatient se tting, when documented at the time of discharge. Please use your independent medical judgment in providing your response. THIS QUERY IS PART OF THE PERMANENT MEDICAL RECORD
[2023-07-20 15:07] VITALS: BP 107/61; PULSE 70; RESP 18; TEMP 36.6; O2SAT 99
[2023-07-20 19:49] VITALS: BP 110/64; PULSE 85; RESP 18; TEMP 36.2; O2SAT 97
[2023-07-20] MEDS: Melatonin 3 MG TABLET 9 MG PO (20:37)
[2023-07-20 21:37] VITALS: RESP 16
[2023-07-21 04:00] VITALS: BP 94/51; PULSE 82; RESP 20; TEMP 36; O2SAT 95
[2023-07-21] MEDS: Omeprazole 40 MG CAPSULE.DR PO (06:21)
[2023-07-21 07:42] VITALS: BP 99/55; PULSE 73; RESP 18; TEMP 36.2; O2SAT 95
[2023-07-21] MEDS: Lactulose 20 GM/30 ML SOLUTION 30 GM PO ×4 (08:38→20:02)
[2023-07-21] MEDS: Multivitamin TABLET 1 TAB PO (08:39)
[2023-07-21] MEDS: 0.9 % Sodium Chloride Flush 3 ML SYRINGE IVFLUSH ×3 (08:39→20:05)
[2023-07-21] MEDS: rifAXIMin 550 MG TABLET PO ×2 (08:39→20:02)
[2023-07-21] MEDS: Thiamine HCL 100 MG TABLET PO (08:39)
[2023-07-21] MEDS: Zinc Sulfate 220 MG CAPSULE PO (08:39)
[2023-07-21] MEDS: Heparin Sodium,Porcine 5,000 UNIT/ML VIAL 5000 UNIT SUBCUT (11:06)
--- NOTE | 2023-07-21 13:41 | P.PNIM_ITS ---
Subjective Subjective Date of Service: 07/21/23 Interval History: Seen and examined this morning Follow-up for hepatic encephalopathy Patient alert oriented, no asterixis. No abdominal pain Review of Systems Review of Systems: Yes all other systems are reviewed and are negative Constitutional Constitutional: Denies chills and Denies fever(s) ENT Ears, Nose, Mouth, and Throat: Denies dizziness Cardiovascular Cardiovascular: Denies chest pain Respiratory Respiratory: Denies cough Gastrointestinal Gastrointestinal: Denies abdominal pain Neurologic Neurologic: Denies dizziness Physical Exam 2 Vital Signs: Vital Signs: Last Vital Signs Temp 97.1 F 07/21/23 07:42 Pulse 73 07/21/23 07:42 Resp 18 07/21/23 07:42 BP 99/55 L 07/21/23 07:42 Pulse Ox 95 07/21/23 07:42 O2 Del Method Room Air 07/21/23 07:42 BMI result Body Mass Index 26.9 Const: General: cooperative, comfortable, no acute distress, alert and awake Nutritional Appearance: average body habitus Orientation/consciousness: p atient oriented x3 Resp: Effort & Inspection: normal respiratory effort, able to speak in complete sentences, no respiratory distress and no use of accessory muscles Cardio: Rate: regular rate GI: Inspection: No distended Palpation (GI): Soft to palpation and nontender Neuro: Other: no asterixis General: patient oriented x3, moves all extremities and CN's II-XI intact bilaterally Extrem: Other: trace leg edema Objective Data Active Medications Acetaminophen (Acetaminophen 325 Mg Tablet) 650 mg PO Q6H PRN PRN Reason: Pain, Mild (Pain Scale 1-3) Albuterol Sulfate (Albuterol Sulfate 90 Mcg 8 Gm Inhaler) 2 puff INHALE Q4H PRN PRN Reason: Shortness of Breath/Wheezing Guaifenesin (Guaifenesin 200 Mg/10 Ml 10 Ml Liquid) 10 ml PO Q4H PRN PRN Reason: Cough Heparin Sodium (Porcine) (Heparin Sodium,Porcine 5,000 Unit/Ml Vial) 5,000 unit SUBCUT Q12H [facility] Last Admin: 07/21/23 11:06 Dose: 5,000 unit Documented By: JULIÁN Lactulose (Lactulose 20 Gm/30 Ml Solution) 30 gm PO QID [facility] Last Admin: 07/21/23 12:59 Dose: 30 gm Documented By: VENITA Melatonin (Melatonin 3 Mg Tablet) 9 mg PO BEDTIME PRN PRN Reason: Insomnia Last Admin: 07/20/23 20:37 Dose: 9 mg Documented By: MAGDALENE Multivitamins/Vitamin C (Multivitamin Tablet) 1 tab PO DAILY [facility] Last Admin: 07/21/23 08:39 Dose: 1 tab Documented By: JULIÁN Omeprazole (Omeprazole 40 Mg Capsule.) 40 mg PO DAILY@0630 [facility] Last Admin: 07/21/23 06:21 Dose: 40 mg Documented By: MAGDALENE Ondansetron HCl (Ondansetron Hcl 4 Mg/2 Ml Vial) 4 mg IVPUSH Q8H PRN PRN Reason: Nausea and Vomiting Polyethylene Glycol/Electrolytes (Peg 3350/Na Sulf,Bicarb,Cl/Kcl 4,000 Ml Soln.Recon) 4,000 ml PO ONCE ONE Stop: 07/21/23 16:31 Rifaximin (Rifaximin 550 Mg Tablet) 550 mg PO BID [facility] Last Admin: 07/21/23 08:39 Dose: 550 mg Documented By: JULIÁN Senna (Sennosides 8.6 Mg Tablet) 17.2 mg PO BEDTIME PRN PRN Reason: Constipation Sodium Chloride (0.9 % Sodium Chloride Flush 3 Ml Syringe) 3 ml IVFLUSH QSHIFT [facility] Last Admin: 07/21/23 08:39 Dose: 3 ml Documented By: JULIÁN Thiamine HCl (Thiamine Hcl 100 Mg Tablet) 100 mg PO DAILY [facility] Last Admin: 07/21/23 08:39 Dose: 100 mg Documented By: JULIÁN Zinc Sulfate (Zinc Sulfate 220 Mg Capsule) 220 mg PO DAILY [facility] Last Admin: 07/21/23 08:39 Dose: 220 mg Documented By: JULIÁN Labs 07/19/23 04:31 07/19/23 04:31 Microbiology Microbiology Results: Microbiology 07/18/23 22:33 Blood Culture - Preliminary Blood - Venous No growth after 48 hours. 07/18/23 14:27 Blood Culture - Preliminary Blood - Venous No growth after 48 hours. Assessment and Plan (1) Hepatic encephalopathy: Status: Acute Plan 57-year-old male with history of alcohol dependence in early remission (last drink 05/30/2023), GERD, and decompensated alcoholic cirrhosis with hepatic encephalopathy admitted for hepatic encephalopathy. Acute decompensation of alcoholic cirrhosis with acute toxic metabolic encephalopathy/hepatic encephalopathy asterixis resolved continue lactulose 30 g q.i.d. continue rifaximin 550 mg b.i.d. GI consult>plan for colonoscopy Tuesday due to underlying anemia; start zinc, protein supplementation and consider CT abdomen and pelvis with IV contrast to rule out splenorenal shunt abd us negative for ascites monitor mentation HFpEF exacerbation BNP 229 on admission s/p 20 mg IV Lasix echocardiogram showed normal LV systolic function and no significant pulm htn seen by cardiology> rec stopping Lasix cardiac diet strict I&O Possible viral URI cxr without consolidation negative COVID-19, RSV, influenza symptomatic management guaifenesin and albuterol p.r.n. Hypoalbuminemia Secondary to liver disease and malnutrition chronic GERD PPI History of alcohol dependence in early remission alcohol level undetectable continue thiamine DVT prophylaxis-heparin Attending Dr. Navarro Full code continue hospital stay for management of hepatic encephalopathy requiring close monitoring of mentation, titration of lactulose dosing, expert consultation, close monitoring of electrolyte levels Quality Stroke Does the patient have a stroke diagnosis?: No VTE Prior VTE?: No VTE Risk Level:: Medical - moderate - high VTE Device Contraindication: Treatment Not Indicated VTE Drug Contraindication: N/A - Med Ordered
[2023-07-21 15:16] VITALS: BP 111/63; PULSE 68; RESP 18; TEMP 36.3; O2SAT 96
[2023-07-21 15:42] LABS: Hematocrit 21.8 % (42.0-52.0); Hemoglobin 7.3 g/dl (14.0-18.0)
[2023-07-21 15:53] LABS: Anion Gap 8 (12-20); Blood Urea Nitrogen 15 mg/dL (9-16); Calcium 8.1 mg/dL (8.4-10.2); Carbon Dioxide 20 mmol/L (22-29); Chloride 111 mmol/L (96-108); Creatinine Clr Calc Pharmacy 100.6; Estimated Glomerular Filt Rate > 60; Glucose Random 92 mg/dL (60-115); Potassium 4.3 mmol/L (3.3-5.1); Sodium 135 mmol/L (135-145)
[2023-07-21] MEDS: PEG 3350/Na Sulf,Bicarb,Cl/KCL 4,000 ML SOLN.RECON 4000 ML PO (16:59)
--- NOTE | 2023-07-21 17:17 | PC.NURSE ---
Pt consented with sister for blood transfusion, witnessed by this magnetic tape typewriter operator, and provider.
[2023-07-21 19:22] VITALS: BP 103/59; PULSE 74; RESP 18; TEMP 36.5; O2SAT 96
[2023-07-21 21:27] VITALS: BP 103/59; PULSE 74; RESP 18; TEMP 36.5
[2023-07-21 21:45] VITALS: BP 97/56; PULSE 72; RESP 18; TEMP 36.6
[2023-07-22] VITALS (7 sets, daily range): BP systolic 100–126; BP diastolic 58–78; PULSE 57–70; RESP 15–18; TEMP 36.1–36.6; O2SAT 95–99
[2023-07-22 07:00] LABS: Hematocrit 25.1 % (42.0-52.0); Hemoglobin 8.6 g/dl (14.0-18.0)
[2023-07-22 07:53] LABS: INTERNATIONAL NORM RATIO 1.7 (0.9-1.1); Prothrombin Time 20.4 SEC (11.1-13.3)
[2023-07-22] MEDS: Multivitamin TABLET 1 TAB PO (08:30)
[2023-07-22] MEDS: Lactulose 20 GM/30 ML SOLUTION 30 GM PO ×2 (08:30→17:20)
[2023-07-22] MEDS: 0.9 % Sodium Chloride Flush 3 ML SYRINGE IVFLUSH ×2 (08:30→17:20)
[2023-07-22] MEDS: Zinc Sulfate 220 MG CAPSULE PO (08:30)
[2023-07-22] MEDS: rifAXIMin 550 MG TABLET PO (08:30)
[2023-07-22] MEDS: Thiamine HCL 100 MG TABLET PO (08:30)
[2023-07-22] MEDS: Sodium Phosphate,Mono-Dibasic 133 ML ENEMA PR (12:37)
--- NOTE | 2023-07-22 13:18 | MHC.CM.PN ---
EMR REVIEWED AND PER MD ROUNDS, PT WILL HAVE A COLONOSCOPY TODAY. CM WILL CONTINUE TO FOLLOW FOR ANY CHANGE TO DC PLAN/NEEDS
--- NOTE | 2023-07-22 13:31 | PC.NURSE ---
1310- patient picked up via wheelchair for transfer to short stay surgery. Report given to LUX Diop.
--- NOTE | 2023-07-22 13:48 | P.CONAN_ITS ---
[facility] Active Problems Active Problems: All Active Problems Elevated brain natriuretic peptide (BNP) level (Acute) Anemia (Acute) Cirrhosis (Acute) CHF exacerbation (Acute) Hepatic encephalopathy (Acute) Acute alteration in mental status (Acute) Hyperammonemia (Acute) Hyperkalemia (Acute) Penile erosion (Acute) Phimosis (Acute) Past Medical History Medical History (Updated 07/20/23 @ 11:17 by Tanner Golden MD) Cirrhosis Anemia Abdominal wall swelling Hyperammonemia Hepatic steatosis Diarrhea resulting from infection of the bowel mucosa Liver lesion Substance use Alcohol use disorder Anemia Chronic kidney disease Alcohol dependence Family History Family history of problems with anesthesia: No Surgical History Surgical History Hx of esophagogastroduodenoscopy History of urologic surgery H/O varicose vein stripping S/P bariatric surgery History of Problems with Anesthesia: No Social History Social History Household Members: Family Household Members Other:: 2 Housing: Apartment Do you presently have visiting nurse or other home services: Yes (PT) Alcohol intake: former Comment: Refused in bathroom supervision. Patient Tobacco Use Status: Former Tobacco user Quit Date: 05/30/23 Tobacco use type: Cigarette Second Hand Smoke Exposure: No Substance Use Type: Crack/Cocaine and Marijuana Advance Directives Date on File: 06/08/23 service: No Current occupational status: employed Meds Allergies Allergy/AdvReac Type Severity Reaction Status Date / Time No Known Allergies Allergy Verified 07/19/23 09:54 Active Medications: Current Medications Acetaminophen (Acetaminophen 325 Mg Tablet) 650 mg PO Q6H PRN PRN Reason: Pain, Mild (Pain Scale 1-3) Albuterol Sulfate (Albuterol Sulfate 90 Mcg 8 Gm Inhaler) 2 puff INHALE Q4H PRN PRN Reason: Shortness of Breath/Wheezing Guaifenesin (Guaifenesin 200 Mg/10 Ml 10 Ml Liquid) 10 ml PO Q4H PRN PRN Reason: Cough Heparin Sodium (Porcine) (Heparin Sodium,Porcine 5,000 Unit/Ml Vial) 5,000 unit SUBCUT Q12H [facility] Last Admin: 07/22/23 11:05 Dose: Not Given Lactulose (Lactulose 20 Gm/30 Ml Solution) 30 gm PO QID [facility] Last Admin: 07/22/23 12:32 Dose: Not Given Melatonin (Melatonin 3 Mg Tablet) 9 mg PO BEDTIME PRN PRN Reason: Insomnia Last Admin: 07/20/23 20:37 Dose: 9 mg Multivitamins/Vitamin C (Multivitamin Tablet) 1 tab PO DAILY [facility] Last Admin: 07/22/23 08:30 Dose: 1 tab Omeprazole (Omeprazole 40 Mg Capsule.Dr) 40 mg PO DAILY@0630 [facility] Last Admin: 07/22/23 05:25 Dose: Not Given Ondansetron HCl (Ondansetron Hcl 4 Mg/2 Ml Vial) 4 mg IVPUSH Q8H PRN PRN Reason: Nausea and Vomiting Rifaximin (Rifaximin 550 Mg Tablet) 550 mg PO BID [facility] Last Admin: 07/22/23 08:30 Dose: 550 mg Senna (Sennosides 8.6 Mg Tablet) 17.2 mg PO BEDTIME PRN PRN Reason: Constipation Sodium Chloride (0.9 % Sodium Chloride Flush 3 Ml Syringe) 3 ml IVFLUSH QSHIFT [facility] Last Admin: 07/22/23 08:30 Dose: 3 ml Thiamine HCl (Thiamine Hcl 100 Mg Tablet) 100 mg PO DAILY [facility] Last Admin: 07/22/23 08:30 Dose: 100 mg Zinc Sulfate (Zinc Sulfate 220 Mg Capsule) 220 mg PO DAILY [facility] Last Admin: 07/22/23 08:30 Dose: 220 mg Home Medications ?Medication ?Instructions ?Recorded ?Confirmed ?Last Taken ?Type melatonin 5 mg tablet 5 - 10 mg PO BEDTIME PRN Insomnia 07/18/23 07/18/23 Unknown History Exam Height,Weight and Vital Signs: Height 6 ft Weight 90 kg Last Vital Signs Temp 97.3 F 07/22/23 13:21 Pulse 62 07/22/23 13:21 Resp 15 07/22/23 13:21 BP 111/70 07/22/23 13:21 Pulse Ox 98 07/22/23 13:21 O2 Del Method Room Air 07/22/23 13:21 Pertinent Lab Results Pertinent Lab Results: Laboratory Tests 07/18/23 07/18/23 07/19/23 14:27 23:10 01:18 WBC 4.6 L RBC 3.03 L Hgb 8.9 L Hct 26.4 L MCV 87.1 MCH 29.4 MCHC 33.7 RDW 17.4 H Plt Count 186 D MPV 10.8 Immature Gran % (Auto) 0.2 Neut % (Auto) 54.8 Lymph % (Auto) 27.3 Perry % (Auto) 13.5 H Eos % (Auto) 3.3 Baso % (Auto) 0.9 Lymph # (Auto) 1.3 Perry # (Auto) 0.6 Eos # (Auto) 0.2 Baso # (Auto) 0.0 Abs Immat Gran (auto) 0.01 Absolute Neuts (auto) 2.5 Absolute Nucleated RBC 0.000 Nucleated RBC % (auto) 0.0 PT 18.4 H INR 1.5 H Sodium 143 Potassium 4.1 Chloride 116 H Carbon Dioxide 22 Anion Gap 9 L BUN 17 H Creatinine 1.15 Estim Creat Clear Calc 79.6 Estimated GFR > 60 Random Glucose 105 Lactic Acid 1.7 Calcium 8.6 Magnesium 2.1 Total Bilirubin 1.6 H Direct Bilirubin AST 75 H ALT 42 H Alkaline Phosphatase 154 H Ammonia 196 H B-Natriuretic Peptide 229 H Total Protein 7.4 Albumin 2.9 L Urine Color Dark Yellow Urine Appearance Clear Urine pH 6.0 Ur Specific Lovely 1.020 Urine Protein Negative Urine Glucose (UA) Negative Urine Ketones Negative Urine Blood Negative Urine Nitrite Negative Ur Leukocyte Esterase Negative Ethyl Alcohol < 10 Influenza Type A (PCR) NEGATIVE Influenza Type B (PCR) NEGATIVE RSV RNA Qual (PCR) NEGATIVE SARS-CoV-2 RNA (RT-PCR) NEGATIVE Blood Type Antibody Screen Crossmatch 07/19/23 07/21/23 07/21/23 04:31 15:09 17:38 WBC 5.4 RBC 2.90 L Hgb 8.7 L 7.3 L Hct 25.2 L 21.8 L MCV 86.9 MCH 30.0 MCHC 34.5 RDW 17.2 H Plt Count 201 MPV 11.6 Immature Gran % (Auto) 0.4 Neut % (Auto) 47.6 Lymph % (Auto) 34.6 Perry % (Auto) 13.2 H Eos % (Auto) 3.3 Baso % (Auto) 0.9 Lymph # (Auto) 1.9 Perry # (Auto) 0.7 Eos # (Auto) 0.2 Baso # (Auto) 0.1 Abs Immat Gran (auto) 0.02 Absolute Neuts (auto) 2.6 Absolute Nucleated RBC 0.000 Nucleated RBC % (auto) 0.0 PT INR Sodium 144 135 Potassium 4.0 4.3 Chloride 118 H 111 H Carbon Dioxide 20 L 20 L Anion Gap 10 L 8 L BUN 18 H 15 Creatinine 1.04 0.91 Estim Creat Clear Calc 88.0 100.6 Estimated GFR > 60 > 60 Random Glucose 79 92 Lactic Acid Calcium 8.7 8.1 L D Magnesium Total Bilirubin 1.5 H Direct Bilirubin 0.8 H AST 70 H ALT 39 Alkaline Phosphatase 145 H Ammonia 142 H B-Natriuretic Peptide Total Protein 7.0 Albumin 2.7 L Urine Color Urine Appearance Urine pH Ur Specific Lovely Urine Protein Urine Glucose (UA) Urine Ketones Urine Blood Urine Nitrite Ur Leukocyte Esterase Ethyl Alcohol Influenza Type A (PCR) Influenza Type B (PCR) RSV RNA Qual (PCR) SARS-CoV-2 RNA (RT-PCR) Blood Type O Positive Antibody Screen NEGATIVE Crossmatch See Detail 07/22/23 07/22/23 05:55 07:33 WBC RBC Hgb 8.6 L Hct 25.1 L MCV MCH MCHC RDW Plt Count MPV Immature Gran % (Auto) Neut % (Auto) Lymph % (Auto) Perry % (Auto) Eos % (Auto) Baso % (Auto) Lymph # (Auto) Perry # (Auto) Eos # (Auto) Baso # (Auto) Abs Immat Gran (auto) Absolute Neuts (auto) Absolute Nucleated RBC Nucleated RBC % (auto) PT 20.4 H INR 1.7 H Sodium Potassium Chloride Carbon Dioxide Anion Gap BUN Creatinine Estim Creat Clear Calc Estimated GFR Random Glucose Lactic Acid Calcium Magnesium Total Bilirubin Direct Bilirubin AST ALT Alkaline Phosphatase Ammonia B-Natriuretic Peptide Total Protein Albumin Urine Color Urine Appearance Urine pH Ur Specific Lovely Urine Protein Urine Glucose (UA) Urine Ketones Urine Blood Urine Nitrite Ur Leukocyte Esterase Ethyl Alcohol Influenza Type A (PCR) Influenza Type B (PCR) RSV RNA Qual (PCR) SARS-CoV-2 RNA (RT-PCR) Blood Type Antibody Screen Crossmatch Airway Mallampati Class: II TM Dist: >3cm Neck ROM: Full Heart: rrr Lungs: cta Assessment and Plan Assessment Anesthesia Assessment: Anesthesia Plan Discussed and Chart Reviewed Final Anesthetic Review Family History of Problems with Anesthesia: No History of Problems with Anesthesia: No NPO: Yes ASA Class: IV Final Preanesthetic Review: No Changes in Pt Med Stat, Meds/Allgs Chart Reviewed and Consent Obtained/Reviewed Patient Risk: Intermediate Procedure Risk: Low Anesthetic Plan Anesthetic Plan: MAC: Disposition: Standard PACU
--- NOTE | 2023-07-22 14:34 | MHC.SHP ---
Pre-Procedural Eval Section A - 24 Hr Update-Section A only Date of Service: 07/22/23 The patient is an INPATIENT: Yes The patient has been examined within 24 hours of the surgical procedure. The History & Physical has been completed within 30 days and I have reviewed it.: Yes Section B - Complete if H&P > 30 days Chief Complaint: anemia Allergies: Allergies Allergy/AdvReac Type Severity Reaction Status Date / Time No Known Allergies Allergy Verified 07/19/23 09:54 Plan I have reviewed the history and physical and performed a pertinent physical examination on my patient. No changes have occurred unless specified. Pt here for colonoscopy for anemia Time Spent With Patient Time: Total time managing care of this patient today ____ minutes.
--- NOTE | 2023-07-22 14:35 | P.OP_ITS ---
Operative Note Operative Note Date of Service: 07/22/23 Narrative: Procedure: Colonoscopy Indication: Anemia Endoscopist: Brenna Mena MD Anesthesia Provider: Dr Jeannine Hester Anesthesia type: MAC Instrument: Olympus [id number]-[id number] Consent: Indication, risks vs benefits, and alternatives were discussed with the patient who gave written informed consent to proceed. EKG, pulse, pulse oximetry and blood pressure were monitored throughout the procedure. Please see anesthesia flowsheet. Procedure: The patient was brought to the procedure room and placed in the left lateral decubitus position. IV medications were administered by the anesthesia provider in attendance. A digital rectal exam was performed which was normal. A distal attachment cap was affixed to the tip of the colonoscope which was then inserted through the anus and advanced through the colon to the hepatic flexure. Mucosa was carefully examined under high definition white light as the instrument was slowly withdrawn in a retrograde panoramic fashion. Retroflexion was performed in rectum. The procedure was not difficult. There were no immediate obvious complications. The quality of the prep was BBPS: N/A+1+1 = inadequate Limitations: Poor prep. Findings: Mucosa: Copious opaque liquid stool was noted in the entire colon obscuring visualisation of the underlying mucosa. However no active bleeding was noted and the stool was yellow. At hepatic flexure semi solid to solid stool was encountered and therefore cecum could not be intubated safely. Protruding lesions: * Large internal hemorrhoids Impression: 1. Incomplete colo - poor prep 2. No active bleeding Recommendations: - Will need repeat colo which can be set up as outpatient - No evidence of ongoing GIB (yellow stool), consider hematology follow up if counts cont to drop intermittently due to known hx of hemolytic anemia.
--- NOTE | 2023-07-22 15:16 | P.PNIM_ITS ---
Subjective Subjective Date of Service: 07/22/23 Interval History: seen and examined this morning follow up for hepatic encephalopathy, anemia awake and alert plan for colonoscopy today Review of Systems Review of Systems: Yes all other systems are reviewed and are negative Constitutional Constitutional: Denies chills and Denies fever(s) Cardiovascular Cardiovascular: Denies chest pain, Denies palpitations and Denies dyspnea Respiratory Respiratory: Denies cough and Denies dyspnea Gastrointestinal Gastrointestinal: Denies abdominal pain Endocrine Endocrine: Denies palpitations Physical Exam 2 Vital Signs: Vital Signs: Last Vital Signs Temp 97.3 F 07/22/23 13:21 Pulse 62 07/22/23 13:21 Resp 15 07/22/23 13:21 BP 111/70 07/22/23 13:21 Pulse Ox 98 07/22/23 13:21 O2 Del Method Room Air 07/22/23 13:21 BMI result Body Mass Index 26.9 Const: General: cooperative, comfortable, no acute distress, alert and awake Nutritional Appearance: average body habitus Orientation/consciousness: p atient oriented x3 Resp: Effort & Inspection: normal respiratory effort, able to speak in complete sentences, no respiratory distress and no use of accessory muscles Cardio: Rate: regular rate GI: Inspection: No distended Palpation (GI): Soft to palpation and nontender Neuro: Other: no asterixis General: patient oriented x3, moves all extremities and CN's II-XI intact bilaterally Objective Data Active Medications Acetaminophen (Acetaminophen 325 Mg Tablet) 650 mg PO Q6H PRN PRN Reason: Pain, Mild (Pain Scale 1-3) Albuterol Sulfate (Albuterol Sulfate 90 Mcg 8 Gm Inhaler) 2 puff INHALE Q4H PRN PRN Reason: Shortness of Breath/Wheezing Guaifenesin (Guaifenesin 200 Mg/10 Ml 10 Ml Liquid) 10 ml PO Q4H PRN PRN Reason: Cough Heparin Sodium (Porcine) (Heparin Sodium,Porcine 5,000 Unit/Ml Vial) 5,000 unit SUBCUT Q12H [facility] Last Admin: 07/22/23 11:05 Dose: Not Given Documented By: JULIÁN Non-Admin Reason: Physician Held Med Comments: Patient pre-op for colonoscopy today. Lactulose (Lactulose 20 Gm/30 Ml Solution) 30 gm PO QID [facility] Last Admin: 07/22/23 12:32 Dose: Not Given Documented By: JULIÁN Non-Admin Reason: Held per Anesthesia. Melatonin (Melatonin 3 Mg Tablet) 9 mg PO BEDTIME PRN PRN Reason: Insomnia Last Admin: 07/20/23 20:37 Dose: 9 mg Documented By: MAGDALENE Multivitamins/Vitamin C (Multivitamin Tablet) 1 tab PO DAILY [facility] Last Admin: 07/22/23 08:30 Dose: 1 tab Documented By: JULIÁN Omeprazole (Omeprazole 40 Mg Capsule.Dr) 40 mg PO DAILY@0630 [facility] Last Admin: 07/22/23 05:25 Dose: Not Given Documented By: MOY Non-Admin Reason: NPO Ondansetron HCl (Ondansetron Hcl 4 Mg/2 Ml Vial) 4 mg IVPUSH Q8H PRN PRN Reason: Nausea and Vomiting Rifaximin (Rifaximin 550 Mg Tablet) 550 mg PO BID [facility] Last Admin: 07/22/23 08:30 Dose: 550 mg Documented By: JULIÁN Senna (Sennosides 8.6 Mg Tablet) 17.2 mg PO BEDTIME PRN PRN Reason: Constipation Sodium Chloride (0.9 % Sodium Chloride Flush 3 Ml Syringe) 3 ml IVFLUSH QSHIFT [facility] Last Admin: 07/22/23 08:30 Dose: 3 ml Documented By: JULIÁN Thiamine HCl (Thiamine Hcl 100 Mg Tablet) 100 mg PO DAILY [facility] Last Admin: 07/22/23 08:30 Dose: 100 mg Documented By: JULIÁN Zinc Sulfate (Zinc Sulfate 220 Mg Capsule) 220 mg PO DAILY [facility] Last Admin: 07/22/23 08:30 Dose: 220 mg Documented By: JULIÁN Labs 07/22/23 05:55 07/21/23 15:09 Labs: Laboratory Results - last 24 hr 07/21/23 07/21/23 07/22/23 15:09 17:38 07:33 PT 20.4 H INR 1.7 H Anion Gap 8 L Estim Creat Clear Calc 100.6 Estimated GFR > 60 Random Glucose 92 Calcium 8.1 L D Blood Type O Positive Antibody Screen NEGATIVE Crossmatch See Detail Assessment and Plan (1) Anemia: Status: Acute (2) Cirrhosis: Status: Acute (3) Hepatic encephalopathy: Status: Acute Plan 57-year-old male with history of alcohol dependence in early remission (last drink 05/30/2023), GERD, and decompensated alcoholic cirrhosis with hepatic encephalopathy admitted for hepatic encephalopathy. Acute decompensation of alcoholic cirrhosis with acute toxic metabolic encephalopathy/hepatic encephalopathy asterixis resolved continue lactulose 30 g q.i.d. continue rifaximin 550 mg b.i.d. GI consult>plan for colonoscopy Tuesday due to underlying anemia; start zinc, protein supplementation abd us negative for ascites monitor mentation acute on chronic normocytic anemia s/p blood transfusion 07/20 with good effect colonoscopy scheduled for today HFpEF exacerbation BNP 229 on admission s/p 20 mg IV Lasix echocardiogram showed normal LV systolic function and no significant pulm htn seen by cardiology> rec stopping Lasix cardiac diet strict I&O Possible viral URI cxr without consolidation negative COVID-19, RSV, influenza symptomatic management guaifenesin and albuterol p.r.n. Hypoalbuminemia Secondary to liver disease and malnutrition chronic GERD PPI History of alcohol dependence in early remission alcohol level undetectable continue thiamine DVT prophylaxis-heparin Attending Dr. Navarro Full code continue hospital stay for management of hepatic encephalopathy requiring close monitoring of mentation, titration of lactulose dosing, expert consultation, close monitoring of electrolyte levels Quality Stroke Does the patient have a stroke diagnosis?: No VTE Prior VTE?: No VTE Risk Level:: Medical - moderate - high VTE Device Contraindication: Treatment Not Indicated VTE Drug Contraindication: N/A - Med Ordered
--- NOTE | 2023-07-22 17:12 | PM.DS ---
DS: Providers Provider Date of Service: 07/22/23 Date of admission: 07/18/23 22:18 Date of discharge: 07/22/23 Primary care physician: Arin Nelson MD Consults: 07/18/23 22:22 Consult to Gastroenterology Routine Consulting Provider: Brenna Mena Reason for consultation: hepatic encephalopathy 07/19/23 07:46 Consult to Cardiology [place]ine [place] [facility] [facility] Reason for consultation: CHF Attending physician on discharge: Asad Navarro Discharging clinician: Mckenzie Anne DS: Diagnosis Discharge Diagnosis (1) Anemia: Status: Acute (2) Cirrhosis: Status: Acute (3) Hepatic encephalopathy: Status: Acute DS: Summary Hospital Course Hospital Course: From H&P on the day of admission 57-year-old male with history of alcohol dependence in early remission (last drink 05/30/2023), GERD, and decompensated alcoholic cirrhosis with hepatic encephalopathy presents to the ED earlier today accompanied by his sister, Rubi, who assists with history due to lightheadedness, weakness, lethargy, and confusion ongoing for the last 3 days. The patient reports he has been compliant with lactulose. Appears there has a prescription for rifaximin but he has not been taking this as they have been unable to secure this from the pharmacy for unknown reason. He states that he has been having 3-4 bowel movements per day but reports them as hard and very small. He is oriented x3 but does feel slightly disoriented. His sister reports that he has been behaving atypically and has been shaking more than normal. Denies any fevers, chills, abdominal pain, nausea, vomiting, melena, hematochezia, palpitations, syncope, chest pain. He has reported wheezing, shortness of breath, and occasionally productive cough ongoing since he was last discharged on 07/05, but worsening over the last few days. Has albuterol at home but has not been using this. Has no known diagnosis of chronic lung disease. On arrival, blood pressure is soft but consistent with baseline, otherwise stable. There is mild leukopenia 4.6. Stable normocytic anemia with H/H 9.9/26.4%. Platelets 186. Renal function consistent with baseline, electrolyte levels normal except for chloride which is again chronically elevated. Total bilirubin 1.6, AST 75, ALT 42. Ammonia level 196. Ethyl alcohol level undetectable. Negative for COVID-19, influenza, RSV. Chest x-ray radiology report is pending but appears to be negative for any focal consolidation with possible mild pulmonary vascular congestion. In the ED, given 30 g lactulose. Patient will be admitted for further management of hepatic encephalopathy. Acute decompensation of alcoholic cirrhosis with acute toxic metabolic encephalopathy/hepatic encephalopathy treated with lactulose and resumed on rifaximin. asterixis resolved and mental status improved. continue lactulose 30 g q.i.d. continue rifaximin 550 mg b.i.d. seen by GI in consultation. was started on zinc supplementation. and had colonoscopy as below. abd us was negative for ascites. He had echocardiogram which showed preserved EF and no pulmonary hypertension. He was seen and evaluated by Cardiology who recommended no need for Lasix. acute on chronic normocytic anemia s/p blood transfusion 07/20 with good effect. colonoscopy 07/21 unfortunately was nondiagnostic due to poor prep. Although no evidence of gross bleeding was seen. Will likely need outpatient colonoscopy in the future. GI also recommended outpatient follow-up with Hematology. HFpEF exacerbation BNP 229 on admission s/p 20 mg IV Lasix echocardiogram showed normal LV systolic function and no significant pulm htn seen by cardiology> rec stopping Lasix Time Attestation Total time managing care of this patient today: 36 mintues. Discharge Coordination Time (in mins): 36 Quality: Safe Use of Opioids Does Pt have an Active Cancer Diagnosis on the Problem List?: No Quality: Stroke Does the patient have a stroke diagnosis?: No Physical Exam Vital Signs: Vital Signs: Last Vital Signs Temp 97.9 F 07/22/23 16:38 Pulse 57 07/22/23 16:38 Resp 18 07/22/23 16:38 BP 126/78 07/22/23 16:38 Pulse Ox 95 07/22/23 16:38 O2 Del Method Room Air 07/22/23 16:38 BMI result Body Mass Index 26.9 Const: General: cooperative, comfortable, no acute distress, alert and awake Nutritional Appearance: average body habitus Orientation/consciousness: patient oriented x3 Resp: Effort & Inspection: normal respiratory effort, able to speak in complete sentences, no respiratory distress and no use of accessory muscles Cardio: Rate: regular rate GI: Inspection: No distended Palpation (GI): Soft to palpation and nontender Neuro: Other: no asterixis General: patient oriented x3, moves all extremities and CN's II-XI intact bilaterally DS: Data Data Completed and Pending Completed studies during hospitalization [Text1]: Procedures Control Bleeding in Gastrointestinal Tract, Via Natural or Artificial Opening Endoscopic (07/03/23) Destruction of Stomach, Pylorus, Via Natural or Artificial Opening Endoscopic (07/03/23) Detoxification Services for Substance Abuse Treatment (05/31/23) Extirpation of Matter from Penis, Open Approach (09/11/22) Inspection of Upper Intestinal Tract, Via Natural or Artificial Opening Endoscopic (05/31/23) Resection of Prepuce, External Approach (09/11/22) Transfusion of Nonautologous Platelets into Peripheral Vein, Percutaneous Approach (09/11/22) Transfusion of Nonautologous Red Blood Cells into Peripheral Vein, Percutaneous Approach (07/03/23) Labs on day of discharge: Laboratory Results - last 24 hr 07/21/23 07/22/23 07/22/23 17:38 05:55 07:33 Hgb 8.6 L Hct 25.1 L PT 20.4 H INR 1.7 H Blood Type O Positive Antibody Screen NEGATIVE Crossmatch See Detail Preliminary micro results at discharge 07/18/23 22:33 Blood Culture - Preliminary Blood - Venous No growth after 48 hours. 07/18/23 14:27 Blood Culture - Preliminary Blood - Venous No growth after 48 hours. Discharge Plan Discharge Anticipated Discharge Date/Time: 07/22/23 17:17 Patient Disposition: Home, Self-Care Discharge Diagnosis: Hepatic encephalopathy Acute on chronic anemia Referrals: Fernanda Shepherd MD [Physician] - 1 Week Arin Nelson MD [Primary Care Provider] - 1 Week Discharge Medications: New zinc sulfate [Zinc-220] 50 mg zinc (220 mg) Capsule 220 mg PO DAILY 90 Days Qty: 396 0RF Continued rifaximin 550 mg tablet 550 mg PO BID 90 Days Qty: 180 1RF thiamine mononitrate (vit B1) 100 mg Tablet 100 mg PO DAILY Qty: 90 0RF multivitamin [Daily-Sherry] Tablet 1 tab PO DAILY Qty: 90 0RF lactulose 20 gram/30 mL Solution 30 g PO TID Qty: 2880 0RF omeprazole 40 mg Capsule,Delayed Release(Dr/Ec) 40 mg PO DAILY 56 Days Qty: 142 0RF Rx Instructions: twice daily for 8 weeks then once daily melatonin 5 mg Tablet 5 - 10 mg PO BEDTIME PRN (Reason: Insomnia) Held furosemide 40 mg tablet 40 mg PO DAILY Qty: 90 0RF Hold Instructions: hold until follow up with GI on Tuesday No Action (DME) Ultra-Light Rollator Misc See Rx Instructions .Route Qty: 1 0RF Rx Instructions: As directed (DME) walker Misc See Rx Instructions .Route Qty: 1 0RF Rx Instructions: As directed Discharge Orders: Discharge Order (Routine); Ordered 07/22/23 Ordered By: Mckenzie Anne Activity on Discharge: As tolerated Stand Alone Forms: Patient Portal Discharge page Print Language: Swedish Other Ambulatory Orders: Complete Blood Count no Diff (Routine) Timeframe: 1 Week Facility: [facility] - Location: Laboratory Ordered By: Mckenzie Anne Care Plan Goals: see below Health Concerns: Metabolic encephalopathy due to hepatic encephalopathy Acute on chronic anemia Liver cirrhosis Plan of Treatment: Continue taking lactulose and rifaximin as prescribed with a goal of 2-3 bowel movements daily Start taking zinc supplementation as prescribed Call to schedule an appointment with Hematology to further discuss chronic anemia Follow-up with GI as scheduled. Discussed need to continue Lasix at that time. Hold Lasix for now Assessment: see discharge summary
== END 2023-07-22 18:07 | disposition home or self-care (01) | DRG 280 ==
LOC: HO.ED 22:07 → HO.EDOVER 22:30 → HO.S3 07-19 07:50
PROVIDERS: Internal Medicine; Registered Nurse Emergency; Admitting Provider Physician Assistant; Emergency Provider Emergency Medicine; PCP Internal Medicine; Visit Provider Physician Assistant Medical
PROC: 0DJD8ZZ Inspection of Lower Intestinal Tract, Via Natural or Artificial Opening Endoscopic (ICD-10-PCS; CPT 45378; principal; 2023-07-22 14:10)
DX: K70.30 Alcoholic cirrhosis of liver without ascites (principal); G92.8 Other toxic encephalopathy; I50.33 Acute on chronic diastolic (congestive) heart failure; K76.82 Hepatic encephalopathy; J06.9 Acute upper respiratory infection, unspecified; K21.9 Gastro-esophageal reflux disease without esophagitis; D64.9 Anemia, unspecified; F11.21 Opioid dependence, in remission; E44.0 Moderate protein-calorie malnutrition; Z20.822 Contact with and (suspected) exposure to COVID-19; Z68.26 Body mass index [BMI] 26.0-26.9, adult; Z87.891 Personal history of nicotine dependence; Z79.899 Other long term (current) drug therapy
CPT/HCPCS: 0241U; 36415; 71045; 76705; 80048; 80053; 80076; 80307; 81003; 82140; 83605; 83735; 83880; 85014; 85018; 85025; 85610; 86850; 86900; 86901; 86923; 87040; 93005; 93308; 99285; J1644; J1940; J2371; J2704; P9016

== ENCOUNTER → 2023-07-18 14:43 | Outpatient (BNV) | payer BC, SELFPAY | PROVIDERS: PCP Internal Medicine; Visit Provider Internal Medicine Cardiovascular Disease | DX: R00.1 Bradycardia, unspecified (principal) | CPT/HCPCS: 93010 ==

== ENCOUNTER 2023-07-18 22:18 | Outpatient (BNV) | payer BC, SELFPAY | END 2023-07-19 07:00 | PROVIDERS: Admitting Provider Physician Assistant; Emergency Provider Emergency Medicine; PCP Internal Medicine; Visit Provider Internal Medicine Cardiovascular Disease | DX: I50.9 Heart failure, unspecified (principal) | CPT/HCPCS: 93308 ==

== ENCOUNTER → 2023-07-18 22:18 | Outpatient (BNV) | payer BC, SELFPAY | PROVIDERS: Admitting Provider Physician Assistant; Emergency Provider Emergency Medicine; PCP Internal Medicine; Visit Provider Internal Medicine Cardiovascular Disease | DX: R79.89 Other specified abnormal findings of blood chemistry (principal) | CPT/HCPCS: 99222; 99233 ==

== ENCOUNTER → 2023-07-18 22:18 | Outpatient (BNV) | payer BC, SELFPAY | PROVIDERS: Admitting Provider Physician Assistant; Emergency Provider Emergency Medicine; PCP Internal Medicine; Visit Provider Internal Medicine | DX: D64.9 Anemia, unspecified (principal); K64.8 Other hemorrhoids; Z91.199 Patient's noncompliance with other medical treatment and regimen due to unspecified reason | CPT/HCPCS: 45378; 99222 ==

== ENCOUNTER → 2023-07-18 22:18 | Outpatient (BNV) | payer BC, SELFPAY | PROVIDERS: Admitting Provider Physician Assistant; Emergency Provider Emergency Medicine; PCP Internal Medicine; Visit Provider Nurse Practitioner Acute Care | DX: D64.9 Anemia, unspecified (principal); K74.60 Unspecified cirrhosis of liver; K76.82 Hepatic encephalopathy | CPT/HCPCS: 99223; 99232; 99239 ==

== ENCOUNTER 2023-07-25 10:54 | Outpatient (AMB) | payer BC, SELFPAY ==
--- NOTE | 2023-07-25 11:07 | A.OFFVIS_ITS ---
Intake Vital Signs 07/25/23 11:10 Height 6 ft Weight 194 lb 0.108 oz BMI 26.3 BP 100/63 Blood Pressure Location Lt brachial Position Sitting Pulse 63 Intake Visit Reasons: 4 week follow up Intake Note: Jonathon presents in the office as a 4 week follow up. CC: States that water pill is on hold until he speaks to Dr Mena. Wants to know if he needs a blood transfusion. Telecom Billing Analyst Required: No Allergies No Known Allergies Allergy (Verified 07/25/23 11:10) HPI HPI Comments History of Present Illness Details This is a 57-year-old gentleman with past medical history of polysubstance use disorder including alcohol and cocaine, who is here for follow up. Pt was seen in consultation in hospital on 05/31/23 (anemia/GIB) and 06/16/23 (HE). Here accompanied by his sister who is very involved in his care and in fact ad vocated to move him from [place] (where he was living by himself) to her house in [place]. Main issue is daytime sleepiness with limited night time sleep. Otherwise, reports good energy, trying to keep up with activity levels. Has been eating good - though not restricting salt and red meat as much as he should. No abd pain, N,V, change in bowel habits. Sober from etOH since May 2023. 07/25/23: Comes in for post-hospitalisation follow up. Since May he has had at least 4 hospitalisations mainly for worsening HE. Reports that had not been taking Rifaximin at home but now has with since discharge. Compliant with lactulose. Also underwent [place] most recent hospitalisation as was becoming logistically to coordinate as OP due to his frequent admissions. This was unfortunately poor prep and inadequate for polyp detection, but no mucosal abnormality or large masses were noted. Patient also worsening fatigue, states that is also this time sitting down or recliner. Sister also mentions but he seems more short of breath at rest. Recent echo normal. No hepatohydrothorax on chest x-ray 07/18/2023 [facility] Medical History (Updated 07/25/23 @ 11:25 by Brenna Mena MD) Cirrhosis Anemia Abdominal wall swelling Hyperammonemia Hepatic steatosis Diarrhea resulting from infection of the bowel mucosa Liver lesion Substance use Alcohol use disorder Anemia Chronic kidney disease Alcohol dependence Surgical History (Updated 07/25/23 @ 11:10 by JOSEPHINE Sanford) Hx of colonoscopy Hx of esophagogastroduodenoscopy History of urologic surgery H/O varicose vein stripping S/P bariatric surgery Social History Household Members: Family Household Members Other:: 2 Housing: Apartment Do you presently have visiting nurse or other home services: Yes (PT) Alcohol intake: former Comment: Refused in bathroom supervision. Patient Tobacco Use Status: Former Tobacco user Quit Date: 05/30/23 Tobacco use type: Cigarette Second Hand Smoke Exposure: No Substance Use Type: Crack/Cocaine and Marijuana Advance Directives Date on File: 06/08/23 service: No Current occupational status: employed Review of Systems Const All systems reviewed & are unremarkable except as noted in HPI and below Physical Exam Vital Signs: Last Vital Signs Pulse 63 07/25/23 11:10 BP 100/63 07/25/23 11:10 BMI result Body Mass Index 26.3 Last Vital Signs Temp 97.7 F 07/19/23 09:12 Pulse 75 07/19/23 09:12 Resp 16 07/19/23 09:12 BP 105/61 07/19/23 09:12 Pulse Ox 98 07/19/23 09:12 O2 Del Method Room Air 07/19/23 09:12 BMI result Body Mass Index 26.9 Frail gentleman, under nourished Bitemporal wasting Abdomen soft, nontender, Lower extremity with nonpitting edema in the right leg and pitting edema on the left Asterixis + Assessment & Plan Assessment & Plan (1) Decompensated hepatic cirrhosis: Code(s): K72.90 - Hepatic failure, unspecified without coma; K74.60 - Unspecified cirrhosis of liver (2) Alcohol use disorder: Code(s): F10.90 - Alcohol use, unspecified, uncomplicated (3) Acute hepatic encephalopathy: Code(s): K76.82 - Hepatic encephalopathy (4) Hyperkalemia: Code(s): E87.5 - Hyperkalemia (5) Shortness of breath: Code(s): R06.02 - Shortness of breath Plan MELD-Na 18 Child Wiseman Class B Congratulated on sobriety. Encouraged compliance with meds including rifaximin and lactulose. Patient also started on zinc supplementation, which she should continue for now. Reviewed that if he continues to have recurrent encephalopathy, may repeat CT with IV contrast to rule out splenorenal shunt. Advised on increasing protein intake with food. Will also prescribe protein shakes. For his worsening shortness of breath, does not appear to have any evidence CHF, or pulmonary edema or pleural effusion on testing and clinical assessment. Will check PFTs, may need pulmonology referral down the line Plan: - Evidence of grade II encephalopathy on exam today. Advised use of lactulose for gal 2-3BMs per day. Rifaximin 550 b.i.d. - no large volume ascites on exam today. Continue furosemide 40mg PO. - No varices on EGD 05/2023. Next EGD in 2024. - HCC screening due in 11/2023 - Counseled on nutrition including protein intake. Add night time snack. Engineering Assistant referral. - PFT's order - No NSAIDs. - Transplant eval referral to be discussed at the next visit - Repeat colo within a year as poor prep 07/22/23 Follow up 4 weeks. Orders: Orders PFT pulmonary function test 07/25/23 R06.02 - Shortness of breath Referrals Black Top Spreader Machine Operator Nutrition Referral K74.60 - Unspecified cirrhosis of liver Medications: New food supplemt, lactose-reduced (Ensure High Protein oral liquid) 1 ea PO BID 30 days 14,220 mL 1RF K74.60 - Unspecified cirrhosis of liver Resumed furosemide 40 mg PO DAILY 90 tabs 0RF Coding Level of Care Code Est Pt Level 5 (68925) Diagnoses Decompensated hepatic cirrhosis K72.90; K74.60 Alcohol use disorder F10.90 Acute hepatic encephalopathy K76.82 Hyperkalemia E87.5 Shortness of breath R06.02
[2023-07-25 11:10] VITALS: BP 100/63; PULSE 63; BMI 26.3
== END 2023-07-25 11:42 | disposition home or self-care (01) ==
PROVIDERS: PCP Registered Nurse; Visit Provider Internal Medicine
DX: K72.90 Hepatic failure, unspecified without coma (principal); K74.60 Unspecified cirrhosis of liver; F10.90 Alcohol use, unspecified, uncomplicated; K76.82 Hepatic encephalopathy; E87.5 Hyperkalemia; R06.02 Shortness of breath
CPT/HCPCS: 99214

== ENCOUNTER → 2023-07-25 10:54 | Outpatient (BNVA) | payer BC, SELFPAY | PROVIDERS: PCP Registered Nurse; Visit Provider Internal Medicine ==

== ENCOUNTER 2023-07-29 11:06 | Emergency (ER) | payer BC, OTHER, SELFPAY ==
--- NOTE | 2023-07-29 11:44 | ED_ITS ---
HPI - Abdominal Pain General Chief Complaint: General Medical Stated Complaint: R side abd swelling Time Seen by Provider: 07/29/23 16:19 Source: patient and family Mode of arrival: ambulatory History of Present Illness HPI narrative: 57-year-old male with known liver cirrhosis and currently on the liver transplant list pending successful abstinence from alcohol for 6 months, last drink in May comes in with concerns for right abdominal swelling but otherwise denies any urinary symptoms, shortness of breath, fever, chills, nausea, vomiting, abdominal pain. Related Data Home Medications ?Medication ?Instructions ?Recorded ?Confirmed melatonin 5 mg tablet 5 - 10 mg PO BEDTIME PRN Insomnia 07/18/23 07/18/23 Previous Rx's ?Medication ?Instructions ?Recorded walker #1 ea 09/21/22 multivitamin (Daily-Sherry tablet) 1 tab PO DAILY #90 tabs 06/07/23 thiamine mononitrate (vit B1) 100 100 mg PO DAILY #90 tabs 06/07/23 mg tablet walker (Ultra-Light Rollator misc) #1 ea 06/07/23 lactulose 20 gram/30 mL oral 30 g (45 mL) PO TID #2,880 mL 06/20/23 solution furosemide 40 mg tablet 40 mg PO DAILY #90 tabs 06/28/23 omeprazole 40 mg capsule,delayed 40 mg PO DAILY 8 weeks #142 caps 07/06/23 release rifaximin 550 mg tablet 550 mg PO BID 90 days #180 tabs 07/14/23 zinc sulfate 50 mg zinc (220 mg) 220 mg (4.4 x 50 mg zinc (220 mg)) 07/22/23 capsule (Zinc-220) PO DAILY 90 days #396 caps food supplemt, lactose-reduced 1 ea PO BID 30 days #14,220 mL 07/25/23 (Ensure High Protein oral liquid) acetaminophen 500 mg tablet 500 mg PO QID PRN pain #60 tabs 07/29/23 (Tylenol Extra Strength) Allergies Allergy/AdvReac Type Severity Reaction Status Date / Time No Known Allergies Allergy Verified 07/29/23 11:51 Review of Systems Review of Systems Pertinent positives and negatives as stated in HPI PMFSH Past Medical History Source: nursing notes reviewed Medical History Cirrhosis Anemia Abdominal wall swelling Hyperammonemia Hepatic steatosis Diarrhea resulting from infection of the bowel mucosa Liver lesion Substance use Alcohol use disorder Anemia Chronic kidney disease Alcohol dependence Surgical History Hx of colonoscopy Hx of esophagogastroduodenoscopy History of urologic surgery H/O varicose vein stripping S/P bariatric surgery Social History Social History Household Members: Family Household Members Other:: 2 Housing: Apartment Do you presently have visiting nurse or other home services: Yes (PT) Alcohol intake: former Comment: Refused in bathroom supervision. Patient Tobacco Use Status: Former Tobacco user Quit Date: 05/30/23 Tobacco use type: Cigarette Second Hand Smoke Exposure: No Substance Use Type: Crack/Cocaine and Marijuana Advance Directives: Yes Advance Directives on File: Yes Advance Directives Date on File: 06/08/23 service: No Current occupational status: employed Physical Exam ED Vital Signs: Vital Signs - 24 hr 07/29/23 11:45 07/29/23 15:59 Temperature 98 F 97.6 F Pulse Rate 66 74 Respiratory Rate 18 18 Blood Pressure 102/60 106/58 L Pulse Oximetry 99 98 Oxygen Delivery Method Room Air Room Air BMI result Body Mass Index 27.5 VITAL SIGNS: Reviewed. GENERAL: Well developed, well nourished, in no acute distress. HEAD: Normocephalic/atraumatic EYES: PERRLA, EOMI LUNGS: Normal breath sounds. No adventitious sounds or accessory muscle use. SpO2<98> CARDIOVASCULAR: Regular rate and rhythm without noted murmurs, no JVD but 2 to 3+ lower pitting edema ABDOMEN: Soft, abdominal wall edema chronic in nature, no erythema/induration, no tenderness on palpation, non-distended with bowel sounds. MUSCULOSKELETAL: No tenderness, deformities, or effusions noted on gross inspection. EXTREMITIES: No cyanosis, clubbing or edema. SKIN: Inspection of the skin reveals no rashes NEUROLOGIC: Alert and oriented x 4. Strength and sensation to light touch were grossly intact x 4. FAST: There is minimal ascites appreciated, no clear windows for paracentesis. Procedures FAST Exam FAST Exam 1: Fluid in Morison's pouch: No Fluid in Splenorenal Junction: No Fluid around bladder, Transverse view: Yes Fluid around bladder, Sagittal view: Yes Fluid in Pericardial Sac: No Gross Wall Motion Abnormality: No Study normal for this patient: No Images saved for further review: No Course Course Course Narrative: This is an RME: Additional HPI, ROS, PE not included below will be deferred to primary provider. Patient is a 57-year-old male who presents emergency department for evaluation of right-sided abdominal swelling, persist or has known liver problems, swelling has been increasing over the past 2 days, denies pain. Recent 07/17 - 07/21 for acute decompensation of alcoholic cirrhosis with metabolic encephalopathy, acute on chronic anemia heart failure exacerbation Plan: Labs, Urinalysis 16:00 re-evaluation now with 11/25 R ABD pain, tightness Medical Decision Making Medical Decision Making MDM Narrative: 57-year-old male with history and clinical presentation, DDX: I see no evidence abdominal wall cellulitis, there is insufficient fluid within the abdomen for safe paracentesis, patient is not confused or dyspneic, there are no clinical signs of infection. I reviewed previous note by Gastroenterology. Patient was strongly encouraged to continue with his current regimen and discuss possible scheduled check ins for outpatient paracentesis. He was also provided with return precautions. Reviewed all investigations and hematologic indices are chronically stable with a mild leukopenia and normocytic anemia of chronic disease with chronic thrombocytopenia and no left shift. Coagulation studies are chronically elevated but stable. Chemistry indices do not demonstrate an MAKENNA or electrolyte derangements in liver enzymes are chronically stable, BNP is chronically stable without evidence of hypoxia or dyspnea. Differential Diagnosis Differential Diagnoses: The differential diagnosis associated with the presentation includes Please see the discussion above Admission/Observation Consideration of admission/observation: Escalation of care including admission/observation considered Please see the discussion above Lab Data MDM Lab Attestation statement: I reviewed the patient's lab results. Please see the discussion above 07/29/23 13:05 07/29/23 13:05 Labs: Lab Results 07/29/23 Range/Units 13:05 WBC 4.7 L (4.8-10.8) X10*3/uL RBC 2.99 L (4.60-5.80) X10*6/uL Hgb 8.7 L (14.0-18.0) g/dl Hct 25.7 L (42.0-52.0) % MCV 86.0 (80.0-98.0) fL MCH 29.1 (27.0-33.0) pg MCHC 33.9 (31.0-36.0) g/dl RDW 17.3 H (11.0-16.0) % Plt Count 151 L (160-400) X10*3/uL MPV 10.5 (9.4-12.4) fL Immature Gran % (Auto) 0.2 (0.0-0.4) % Neut % (Auto) 52.8 (45-73) % Lymph % (Auto) 28.5 (20-40) % [place] % (Auto) 13.9 H (2-11) % Eos % (Auto) 3.8 (0-4) % Baso % (Auto) 0.8 (0-2) % Lymph # (Auto) 1.4 (1.2-4.9) X10*3/uL [place] # (Auto) 0.7 (0.1-1.2) X10*3/uL Eos # (Auto) 0.2 (0.0-0.4) X10*3/uL Baso # (Auto) 0.0 (0.0-0.2) X10*3/uL Abs Immat Gran (auto) 0.01 (0.00-0.03) X10*3/uL Absolute Neuts (auto) 2.5 (2.0-8.3) x10*3/uL Absolute Nucleated RBC 0.000 (0.0-0.012) X10*3/uL Nucleated RBC % (auto) 0.0 (0.0-0.2) /100WBC PT 19.4 H (11.1-13.3) SEC INR 1.6 H (0.9-1.1) Sodium 138 (135-145) mmol/L Potassium 4.3 (3.3-5.1) mmol/L Chloride 111 H (96-108) mmol/L Carbon Dioxide 23 (22-29) mmol/L Anion Gap 8 L (12-20) BUN 13 (9-16) mg/dL Creatinine 0.99 (0.5-1.4) mg/dL Estim Creat Clear Calc 92.5 Estimated GFR > 60 Random Glucose 96 (60-115) mg/dL Calcium 8.1 L (8.4-10.2) mg/dL Magnesium 2.0 (1.6-2.6) mg/dL Total Bilirubin 1.5 H (0.0-1.0) mg/dL AST 61 H (5-37) U/L ALT 34 (0-40) U/L Alkaline Phosphatase 131 H (39-117) U/L B-Natriuretic Peptide 252 H (<100) pg/mL Total Protein 6.9 (6.5-8.0) g/dL Albumin 2.7 L (3.5-5.0) g/dL Lipase 47 (8-78) U/L External Record Review External record reviewed: Outpatient record, Prior outpatient labs and Prior outpatient radiology Chronic Conditions Patient?s care impacted by: Other CHF, liver cirrhosis Critical Care Time Critical Care Time Critical Care Time: Yes Total Critical Care Time: 30 Attestation: I personally attest to this time spent taking care of the patient. Discharge Plan Discharge Clinical Impression: Anasarca, Cirrhosis of liver Patient Disposition: Home, Self-Care Instructions: Cirrhosis (ED), Leg Edema (ED) Additional Instructions: 1. Resume all home medications as prescribed. 2. May consider making arrangements with GI doctor for scheduled evaluation of removal of additional fluid within the belly. Return to the ER if you develop any confusion, abdominal pain, shortness of breath. Prescriptions: No Action rifaximin 550 mg tablet 550 mg PO BID 90 Days Qty: 180 1RF acetaminophen [Tylenol Extra Strength] 500 mg tablet 500 mg PO QID PRN (Reason: pain) Qty: 60 1RF Rx Instructions: Pls do not take more than 4 tablets in 24h. thiamine mononitrate (vit B1) 100 mg Tablet 100 mg PO DAILY Qty: 90 0RF multivitamin [Daily-Sherry] Tablet 1 tab PO DAILY Qty: 90 0RF (DME) Ultra[facility] See Rx Instructions .Route Qty: 1 0RF Rx Instructions: As directed (DME) j[facility]i [facility] [place] See Rx Instructions .Route Qty: 1 0RF Rx Instructions: As directed lactulose 20 gram/30 mL Solution 30 g PO TID Qty: 2880 0RF omeprazole 40 mg Capsule,Delayed Release(Dr/Ec) 40 mg PO DAILY 56 Days Qty: 142 0RF Rx Instructions: twice daily for 8 weeks then once daily melatonin 5 mg Tablet 5 - 10 mg PO BEDTIME PRN (Reason: Insomnia) zinc sulfate [Zinc-220] 50 mg zinc (220 mg) Capsule 220 mg PO DAILY 90 Days Qty: 396 0RF Ensure High Protein Liquid 1 ea PO BID 30 Days Qty: 29153 1RF furosemide 40 mg tablet 40 mg PO DAILY Qty: 90 0RF Hold Instructions: hold until follow up with GI on Tuesday Print Language: French
[2023-07-29 11:45] VITALS: BP 102/60; PULSE 66; RESP 18; TEMP 36.6; O2SAT 99; BMI 27.5
[2023-07-29 13:11] LABS: MANUAL DIFF FLAG NO
[2023-07-29 13:15] LABS: Basophils Percent Auto 0.8 % (0-2); Eosinophils Absolute Auto 0.2 X10*3/uL (0.0-0.4); Eosinophils Percent Auto 3.8 % (0-4); Hematocrit 25.7 % (42.0-52.0); Hemoglobin 8.7 g/dl (14.0-18.0); Imm Gran Abs Auto 0.01 X10*3/uL (0.00-0.03); Imm Gran Pct Auto 0.2 % (0.0-0.4); Lymphocytes Absolute Auto 1.4 X10*3/uL (1.2-4.9); Lymphocytes Percent Auto 28.5 % (20-40); Mean Corpuscular HGB Conc 33.9 g/dl (31.0-36.0); Mean Corpuscular Hemoglobin 29.1 pg (27.0-33.0); Mean Platelet Volume 10.5 fL (9.4-12.4); Monocytes Absolute Auto 0.7 X10*3/uL (0.1-1.2); Monocytes Percent Auto 13.9 % (2-11); Neutrophils Absolute Auto 2.5 x10*3/uL (2.0-8.3); Neutrophils Percent Auto 52.8 % (45-73); Platelet Count 151 X10*3/uL (160-400); Red Blood Count 2.99 X10*6/uL (4.60-5.80); Red Cell Distribution Width 17.3 % (11.0-16.0); White Blood Count 4.7 X10*3/uL (4.8-10.8)
[2023-07-29 13:21] LABS: INTERNATIONAL NORM RATIO 1.6 (0.9-1.1); Prothrombin Time 19.4 SEC (11.1-13.3)
[2023-07-29 13:26] LABS: Alanine Aminotransferase 34 U/L (0-40); Albumin Level 2.7 g/dL (3.5-5.0); Alkaline Phosphatase 131 U/L (39-117); Anion Gap 8 (12-20); Aspartate Amino Transferase 61 U/L (5-37); Bilirubin Total 1.5 mg/dL (0.0-1.0); Blood Urea Nitrogen 13 mg/dL (9-16); Calcium 8.1 mg/dL (8.4-10.2); Carbon Dioxide 23 mmol/L (22-29); Chloride 111 mmol/L (96-108); Creatinine Clr Calc Pharmacy 92.5; Estimated Glomerular Filt Rate > 60; Glucose Random 96 mg/dL (60-115); Lipase 47 U/L (8-78); Potassium 4.3 mmol/L (3.3-5.1); Sodium 138 mmol/L (135-145); Total Protein 6.9 g/dL (6.5-8.0)
[2023-07-29 13:31] LABS: B Type Natriuretic Peptide 252 pg/mL (<100)
[2023-07-29 15:59] VITALS: BP 106/58; PULSE 74; RESP 18; TEMP 36.4; O2SAT 98
[2023-07-29 17:04] VITALS: BP 96/58; PULSE 69; RESP 18; TEMP 36.8; O2SAT 97
== END 2023-07-29 17:05 | disposition home or self-care (01) ==
PROVIDERS: Nurse Practitioner Family; Emergency Provider Student in an Organized Health Care Education/Training Program
DX: R60.1 Generalized edema (principal); K70.30 Alcoholic cirrhosis of liver without ascites; N18.9 Chronic kidney disease, unspecified; F10.21 Alcohol dependence, in remission
CPT/HCPCS: 36415; 80053; 83690; 83735; 83880; 85025; 85610; 99282; 99283

== ENCOUNTER 2023-08-06 22:59 | Emergency (ER) | payer BC, SELFPAY ==
[2023-08-06 23:03] VITALS: BP 99/55; PULSE 86; RESP 18; TEMP 36.9; O2SAT 98; BMI 28.3
[2023-08-06 23:27] LABS: MANUAL DIFF FLAG NO
[2023-08-06 23:29] LABS: Basophils Percent Auto 0.7 % (0-2); Eosinophils Absolute Auto 0.3 X10*3/uL (0.0-0.4); Hematocrit 24.7 % (42.0-52.0); Hemoglobin 8.5 g/dl (14.0-18.0); Imm Gran Abs Auto 0.02 X10*3/uL (0.00-0.03); Imm Gran Pct Auto 0.3 % (0.0-0.4); Lymphocytes Absolute Auto 1.5 X10*3/uL (1.2-4.9); Lymphocytes Percent Auto 25.6 % (20-40); Mean Corpuscular HGB Conc 34.4 g/dl (31.0-36.0); Mean Corpuscular Hemoglobin 28.6 pg (27.0-33.0); Mean Corpuscular Volume 83.2 fL (80.0-98.0); Mean Platelet Volume 11.4 fL (9.4-12.4); Monocytes Absolute Auto 0.7 X10*3/uL (0.1-1.2); Monocytes Percent Auto 11.6 % (2-11); Neutrophils Absolute Auto 3.4 x10*3/uL (2.0-8.3); Neutrophils Percent Auto 56.8 % (45-73); Platelet Count 144 X10*3/uL (160-400); Red Blood Count 2.97 X10*6/uL (4.60-5.80); Red Cell Distribution Width 17.7 % (11.0-16.0)
[2023-08-06 23:46] LABS: Alanine Aminotransferase 42 U/L (0-40); Albumin Level 2.5 g/dL (3.5-5.0); Alkaline Phosphatase 131 U/L (39-117); Anion Gap 11 (12-20); Aspartate Amino Transferase 84 U/L (5-37); Bilirubin Direct 0.6 mg/dL (0.0-0.5); Bilirubin Total 1.5 mg/dL (0.0-1.0); Blood Urea Nitrogen 17 mg/dL (9-16); Calcium 8.2 mg/dL (8.4-10.2); Carbon Dioxide 19 mmol/L (22-29); Chloride 112 mmol/L (96-108); Creatinine Clr Calc Pharmacy 96.8; Estimated Glomerular Filt Rate > 60; Ethanol < 10 mg/dL; Glucose Random 94 mg/dL (60-115); Lipase 47 U/L (8-78); Potassium 5.5 mmol/L (3.3-5.1); Sodium 136 mmol/L (135-145); Total Protein 7.1 g/dL (6.5-8.0)
[2023-08-07 01:50] VITALS: BP 97/46; PULSE 76; RESP 16; TEMP 36.9; O2SAT 97
--- NOTE | 2023-08-07 02:06 | ED_ITS ---
HPI - General Adult General Chief complaint: General Medical Stated complaint: Rectum bleeding Time Seen by Provider: 08/07/23 02:06 Source: patient and family Mode of arrival: ambulatory Limitations: no limitations History of Present Illness HPI narrative: 57-year-old male with a history of cirrhosis, anemia, alcohol use disorder, chronic kidney disease, hepatic encephalopathy who presents emergency department for evaluation of bright red blood per rectum. The patient was hospitalized for 4 days at [facility] and was discharged yesterday morning. The patient was therefore abdominal wall cellulitis and received IV antibiotics he is currently taking cephalexin. The patient was constipated he did have an enema on the day of his discharge. The patient did have some bright red blood per rectum after moving his bowels. He went home and again had another bowel movement with bright red blood per rectum. His family was concerned and brought him here to the emergency department for evaluation. According to his family, the patient is still has significant erythema and warmth to his abdominal wall but is significantly improved from when he initially was admitted to [facility]. Related Data Home Medications ?Medication ?Instructions ?Recorded ?Confirmed melatonin 5 mg tablet 5 - 10 mg PO BEDTIME PRN Insomnia 07/18/23 07/18/23 Previous Rx's ?Medication ?Instructions ?Recorded walker #1 ea 09/21/22 multivitamin (Daily-Sherry tablet) 1 tab PO DAILY #90 tabs 06/07/23 thiamine mononitrate (vit B1) 100 100 mg PO DAILY #90 tabs 06/07/23 mg tablet walker (Ultra-Light Rollator misc) #1 ea 06/07/23 lactulose 20 gram/30 mL oral 30 g (45 mL) PO TID #2,880 mL 06/20/23 solution furosemide 40 mg tablet 40 mg PO DAILY #90 tabs 06/28/23 omeprazole 40 mg capsule,delayed 40 mg PO DAILY 8 weeks #142 caps 07/06/23 release rifaximin 550 mg tablet 550 mg PO BID 90 days #180 tabs 07/14/23 zinc sulfate 50 mg zinc (220 mg) 220 mg (4.4 x 50 mg zinc (220 mg)) 07/22/23 capsule (Zinc-220) PO DAILY 90 days #396 caps food supplemt, lactose-reduced 1 ea PO BID 30 days #14,220 mL 07/25/23 (Ensure High Protein oral liquid) acetaminophen 500 mg tablet 500 mg PO QID PRN pain #60 tabs 07/29/23 (Tylenol Extra Strength) Allergies Allergy/AdvReac Type Severity Reaction Status Date / Time No Known Allergies Allergy Verified 08/06/23 23:07 Review of Systems 2 Review of Systems: Yes all other systems are reviewed and are negative [facility] Past Medical History [facility] Narrative: Social history: He lives at home with his family who care for him. He denies tobacco, alcohol and drug use. Medical History Cirrhosis Anemia Abdominal wall swelling Hyperammonemia Hepatic steatosis Diarrhea resulting from infection of the bowel mucosa Liver lesion Substance use Alcohol use disorder Anemia Chronic kidney disease Alcohol dependence Surgical History Hx of colonoscopy Hx of esophagogastroduodenoscopy History of urologic surgery H/O varicose vein stripping S/P bariatric surgery Social History Social History Household Members: Family Household Members Other:: 2 Housing: Apartment Do you presently have visiting nurse or other home services: Yes (PT) Alcohol intake: former Comment: Refused in bathroom supervision. Patient Tobacco Use Status: Former Tobacco user Quit Date: 05/30/23 Tobacco use type: Cigarette Smoked in Last 30 Days: No Second Hand Smoke Exposure: No Use of substances other than those prescribed or required for medical reasons: No Substance Use Type: Crack/Cocaine and Marijuana Advance Directives: Yes Advance Directives on File: Yes Advance Directives Date on File: 06/08/23 service: No Current occupational status: employed Physical Exam ED Vital Signs: Vital Signs - 24 hr 08/06/23 23:03 08/07/23 01:50 08/07/23 04:35 Temperature 98.5 F 98.4 F 98.2 F Pulse Rate 86 76 82 Respiratory Rate 18 16 18 Blood Pressure 99/55 L 97/46 L 102/48 L Pulse Oximetry 98 97 98 Oxygen Delivery Method Room Air Nasal Cannula Oxygen Flow Rate 2 BMI result Body Mass Index 28.3 Vital signs were normal Exam: General: Awake, does not appear to be in distress Head: Normocephalic, atraumatic EENT: PERRL, Lids normal, sclera icteric , conjunctiva normal, nose normal , ears normal, throat without erythema or exudates Neck: Supple, no adenopathy Lung: Diffuse rhonchi, no wheezing or rales, breath sounds symmetric Chest: symmetric movement, nontender Heart: regular rate and rhythm, normal S1, S2 no murmurs or rubs Abdomen: Abdomen is distended secondary to ascites , patient does have erythema with increased warmth to his lower abdomen and right abdominal wall, no abdominal tenderness, normoactive bowel sounds Rectal: No external hemorrhoids noted, no masses or internal hemorrhoids felt on digital exam, the patient did have loose brown stool with bright red blood mixed in the stool, stool was Hemoccult positive Back: no vertebral tenderness, no CVAT Extremities: no deformities, moves all extremities symmetrically Medical Decision Making Medical Decision Making MDM Narrative: 57-year-old male with a history of cirrhosis, anemia, alcohol use disorder, chronic kidney disease, hepatic encephalopathy who presents emergency department for evaluation of bright red blood per rectum. Patient was discharged yesterday morning from [facility] where he was admitted for abdominal wall cellulitis, treated with IV antibiotics and discharged on cephalexin. The patient had an enema prior to being discharged did have some bright red blood per rectum after the enema, had an episode of bright red blood per rectum at home and was brought to emergency department by his family for evaluation. Vital signs were normal. Exam did reveal cellulitis to the lower abdominal wall which the family states is improved. The patient had no significant abdominal tenderness. Rectal exam revealed brown stool with blood which was Hemoccult positive. Differential diagnosis: ?Includes but is not limited to bleeding caused by external or internal hemorrhoids, AVM, polyps, diverticular bleed Following evaluation was ordered:CBC, CMP, ethanol, lipase, urinalysis, liver panel Course: 04:43 My interpretation patient's laboratory evaluation is as follows: Anemia with an H&H of 8.5 and 24.7-chronic, similar to previous values. CMP revealed elevated potassium 5.5, elevated AST and ALT 84 and 82, elevated alk-phos 137. At this time, I do not think that the patient has had a significant lower GI bleed in the bleed is most likely caused by the enema that he had at [facility]. Patient may have internal hemorrhoids causing the bleeding. I did discuss this with the family and they are comfortable taking him home at this time. He was advised to continue taking his medications as prescribed by his providers and to return to the emergency department if his symptoms get worse. Admission/Observation Consideration of admission/observation: Escalation of care including admission/observation considered Lab Data MDM Lab Attestation statement: I reviewed the patient's lab results. 08/06/23 23:24 08/06/23 23:24 Labs: Lab Results 08/06/23 08/07/23 Range/Units 23:24 02:43 WBC 6.0 (4.8-10.8) X10*3/uL RBC 2.97 L (4.60-5.80) X10*6/uL Hgb 8.5 L (14.0-18.0) g/dl Hct 24.7 L (42.0-52.0) % MCV 83.2 (80.0-98.0) fL MCH 28.6 (27.0-33.0) pg MCHC 34.4 (31.0-36.0) g/dl RDW 17.7 H (11.0-16.0) % Plt Count 144 L (160-400) X10*3/uL MPV 11.4 (9.4-12.4) fL Immature Gran % (Auto) 0.3 (0.0-0.4) % Neut % (Auto) 56.8 (45-73) % Lymph % (Auto) 25.6 (20-40) % [place] % (Auto) 11.6 H (2-11) % Eos % (Auto) 5.0 H (0-4) % Baso % (Auto) 0.7 (0-2) % Lymph # (Auto) 1.5 (1.2-4.9) X10*3/uL [place] # (Auto) 0.7 (0.1-1.2) X10*3/uL Eos # (Auto) 0.3 (0.0-0.4) X10*3/uL Baso # (Auto) 0.0 (0.0-0.2) X10*3/uL Abs Immat Gran (auto) 0.02 (0.00-0.03) X10*3/uL Absolute Neuts (auto) 3.4 (2.0-8.3) x10*3/uL Absolute Nucleated RBC 0.000 (0.0-0.012) X10*3/uL Nucleated RBC % (auto) 0.0 (0.0-0.2) /100WBC Sodium 136 (135-145) mmol/L Potassium 5.5 H D (3.3-5.1) mmol/L Chloride 112 H (96-108) mmol/L Carbon Dioxide 19 L (22-29) mmol/L Anion Gap 11 L (12-20) BUN 17 H (9-16) mg/dL Creatinine 1.03 (0.5-1.4) mg/dL Estim Creat Clear Calc 96.8 Estimated GFR > 60 Random Glucose 94 (60-115) mg/dL Calcium 8.2 L (8.4-10.2) mg/dL Total Bilirubin 1.5 H (0.0-1.0) mg/dL Direct Bilirubin 0.6 H (0.0-0.5) mg/dL AST 84 H (5-37) U/L ALT 42 H (0-40) U/L Alkaline Phosphatase 131 H (39-117) U/L Total Protein 7.1 (6.5-8.0) g/dL Albumin 2.5 L (3.5-5.0) g/dL Lipase 47 (8-78) U/L Urine Color Dark Yellow Urine Appearance Clear Urine pH 5.5 (5.0-9.0) Ur Specific [place] 1.020 (1.005-1.025) Urine Protein Negative (Neg-Trace) mg/dL Urine Glucose (UA) Negative (Negative) mg/dL Urine Ketones Trace (Negative) mg/dL Urine Blood Trace H (Negative) Urine Nitrite Negative (Negative) Ur Leukocyte Esterase Trace H (Negative) Urine RBC 3-5 H (0-2) /HPF Urine WBC 0-5 (0-5) /HPF Ur Squamous Epith Cells 0-2 (0-2) /HPF Urine Bacteria None Seen (None Seen) Hyaline Casts 0-2 (0-2) /LPF Ethyl Alcohol < 10 mg/dL Independent Historian Clinical information obtained from an independent historian. History obtained from or confirmed by: Other (Sister) Chronic Conditions Patient?s care impacted by: Other (Cirrhosis) Discharge Plan Discharge Clinical Impression: Acute lower GI hemorrhage Patient Disposition: Home, Self-Care Additional Instructions: On your rectal exam you do have blood in your rectum, I believe that this is probably caused from the enema which may have irritated some internal hemorrhoids causing the bleeding. Your hematocrit and hemoglobin were 8.5 and 24.7, you had similar values in the past and at this time these values are not low enough to require a blood transfusion. Continue taking your medications as prescribed by your providers. Follow-up with your doctor in 2 days. Please return to the emergency department if your symptoms get worse or if you develop any symptoms that are concerning to you. Prescriptions: No Action rifaximin 550 mg tablet 550 mg PO BID 90 Days Qty: 180 1RF acetaminophen [Tylenol Extra Strength] 500 mg tablet 500 mg PO QID PRN (Reason: pain) Qty: 60 1RF Rx Instructions: Pls do not take more than 4 tablets in 24h. thiamine mononitrate (vit B1) 100 mg Tablet 100 mg PO DAILY Qty: 90 0RF multivitamin [Daily-Sherry] Tablet 1 tab PO DAILY Qty: 90 0RF (DME) Ultra-Light Rollator Misc See Rx Instructions .Route Qty: 1 0RF Rx Instructions: As directed (DME) [facility] [place] See Rx Instructions .Route Qty: 1 0RF Rx Instructions: As directed lactulose 20 gram/30 mL Solution 30 g PO TID Qty: 2880 0RF omeprazole 40 mg Capsule,Delayed Release(Dr/Ec) 40 mg PO DAILY 56 Days Qty: 142 0RF Rx Instructions: twice daily for 8 weeks then once daily melatonin 5 mg Tablet 5 - 10 mg PO BEDTIME PRN (Reason: Insomnia) zinc sulfate [Zinc-220] 50 mg zinc (220 mg) Capsule 220 mg PO DAILY 90 Days Qty: 396 0RF Ensure High Protein Liquid 1 ea PO BID 30 Days Qty: 27601 1RF furosemide 40 mg tablet 40 mg PO DAILY Qty: 90 0RF Hold Instructions: hold until follow up with GI on Tuesday Interventions: ED Discharge Assessment Last Done: 08/07/23 04:35 Discharge Date/Time: 08/07/23 04:36 Print Language: Persian
[2023-08-07 02:58] LABS: Appearance Urine Clear; Color Urine Dark Yellow; Glucose Urine UA Negative (Negative); Leukocyte Esterase Urine Trace (Negative); Nitrite Urine Negative (Negative); PH 5.5 (5.0-9.0); UMIC TRIGGER UACC YES; Urine Blood Trace (Negative); Urine Ketones Trace mg/dL (Negative); Urine Protein Negative (Neg-Trace)
[2023-08-07 03:10] LABS: Bacteria Urine None Seen (None Seen); Hyaline Casts Urine 0-2 /LPF (0-2); Squamous Epithelial Cell Urine 0-2 /HPF (0-2); WBC Urine 0-5 /HPF (0-5)
[2023-08-07 04:35] VITALS: BP 102/48; PULSE 82; RESP 18; TEMP 36.8; O2SAT 98
== END 2023-08-07 04:36 | disposition home or self-care (01) ==
PROVIDERS: Emergency Provider Emergency Medicine Emergency Medical Services
DX: K92.2 Gastrointestinal hemorrhage, unspecified (principal); K74.60 Unspecified cirrhosis of liver; F10.20 Alcohol dependence, uncomplicated; Y90.0 Blood alcohol level of less than 20 mg/100 ml
CPT/HCPCS: 36415; 80053; 80307; 81001; 82248; 83690; 85025; 99283; 99284

== ENCOUNTER 2023-08-12 16:10 | Emergency (ER) | payer BC, OTHER, SELFPAY ==
--- NOTE | ~2023-08-12 | XR_ITS ---
EXAMINATION: XR SHOULDER, LEFT CLINICAL INFORMATION: Pain. COMPARISON: None available. TECHNIQUE: 3 radiographs of the left shoulder. FINDINGS: There is no fracture. The acromioclavicular and glenohumeral joints are maintained. Regional soft tissue is unremarkable. There is linear atelectasis versus scarring within the lower left lung. XR/XR shoulder LT min 2V IMPRESSION: No fracture or dislocation of the left shoulder.
[2023-08-12 16:29] VITALS: BP 102/54; PULSE 61; RESP 18; TEMP 36.6; O2SAT 98; BMI 31.0
--- NOTE | 2023-08-12 16:35 | ED.GENADULT ---
HPI - General Adult General Chief complaint: Extremity Problem Stated complaint: Leg swelling Time Seen by Provider: 08/12/23 22:58 Source: patient, RN notes reviewed and old records reviewed Mode of arrival: ambulatory Limitations: no limitations History of Present Illness HPI narrative: 57-year-old male past medical history significant for alcoholic liver cirrhosis, CHF, hyperkalemia, hepatic encephalopathy presents for evaluation of leg swelling. Patient reports multiple recent hospitalizations at [facility]. He reports he was discharged last week Patient is here today for ?leg swelling. ? His leg swelling is bilateral. He reports increasing leg swelling for the last few days. He is on Lasix 40 mg daily. He denies any pain including leg pain. Denies any chest pain, shortness of breath No other complaints or concerns time He denies any fevers, chills Related Data Home Medications ?Medication ?Instructions ?Recorded ?Confirmed melatonin 5 mg tablet 5 - 10 mg PO BEDTIME PRN Insomnia 07/18/23 07/18/23 Previous Rx's ?Medication ?Instructions ?Recorded walker #1 ea 09/21/22 multivitamin (Daily-Sherry tablet) 1 tab PO DAILY #90 tabs 06/07/23 thiamine mononitrate (vit B1) 100 100 mg PO DAILY #90 tabs 06/07/23 mg tablet walker (Ultra-Light Rollator misc) #1 ea 06/07/23 lactulose 20 gram/30 mL oral 30 g (45 mL) PO TID #2,880 mL 06/20/23 solution furosemide 40 mg tablet 40 mg PO DAILY #90 tabs 06/28/23 omeprazole 40 mg capsule,delayed 40 mg PO DAILY 8 weeks #142 caps 07/06/23 release rifaximin 550 mg tablet 550 mg PO BID 90 days #180 tabs 07/14/23 zinc sulfate 50 mg zinc (220 mg) 220 mg (4.4 x 50 mg zinc (220 mg)) 07/22/23 capsule (Zinc-220) PO DAILY 90 days #396 caps food supplemt, lactose-reduced 1 ea PO BID 30 days #14,220 mL 07/25/23 (Ensure High Protein oral liquid) acetaminophen 500 mg tablet 500 mg PO QID PRN pain #60 tabs 07/29/23 (Tylenol Extra Strength) Allergies Allergy/AdvReac Type Severity Reaction Status Date / Time No Known Allergies Allergy Verified 08/12/23 16:32 Review of Systems Constitutional: Constitutional: Denies body ache(s), Denies chills and Denies fever(s) Eyes: Eyes: Denies blurry vision ENT: Denies sore throat Cardiovascular: Cardiovascular: Denies chest pain, Reports leg edema and Denies dyspnea Respiratory: Respiratory: Denies cough and Denies dyspnea Gastrointestinal: Gastrointestinal: Denies abdominal pain, Denies nausea and Denies vomiting Musculoskeletal: Musculoskeletal: Denies back pain Integumentary/Breasts: Skin/Breast: Denies rash PMFSH Past Medical History Medical History Cirrhosis Anemia Abdominal wall swelling Hyperammonemia Hepatic steatosis Diarrhea resulting from infection of the bowel mucosa Liver lesion Substance use Alcohol use disorder Anemia Chronic kidney disease Alcohol dependence Surgical History Hx of colonoscopy Hx of esophagogastroduodenoscopy History of urologic surgery H/O varicose vein stripping S/P bariatric surgery Social History Social History Household Members: Family Household Members Other:: 2 Housing: Apartment Do you presently have visiting nurse or other home services: Yes (PT) Alcohol intake: former Comment: Refused in bathroom supervision. Patient Tobacco Use Status: Former Tobacco user Quit Date: 05/30/23 Tobacco use type: Cigarette Smoked in Last 30 Days: No Second Hand Smoke Exposure: No Use of substances other than those prescribed or required for medical reasons: No Substance Use Type: Crack/Cocaine and Marijuana Advance Directives: Yes Advance Directives on File: Yes Advance Directives Date on File: 06/08/23 Do you have a plan to hurt others: No Plan service: No Current occupational status: employed Physical Exam ED Vital Signs: Vital Signs - 24 hr 08/12/23 16:29 08/12/23 20:51 08/12/23 23:39 Temperature 97.9 F 97.8 F 97.5 F Pulse Rate 61 65 72 Respiratory Rate 18 16 14 Blood Pressure 102/54 L 108/67 103/66 Pulse Oximetry 98 98 98 Oxygen Delivery Method Room Air Room Air Room Air 08/12/23 23:41 Temperature 97.5 F Pulse Rate 72 Respiratory Rate 14 Blood Pressure 103/66 Pulse Oximetry 98 Oxygen Delivery Method Room Air BMI result Body Mass Index 31.0 Const General: healthy appearing, comfortable, no acute distress, alert and awake Nutritional Appearance: well nourished Orientation/consciousness: patient oriented x3 HENMT Head: Yes normocephalic and Yes atraumatic Eyes Eyelids: Yes eyelids normal Conjunctivae: conjunctivae normal Sclerae: sclerae normal Corneas: corneas normal Pupils: Equal, round and reactive pupils present EOM: EOMs intact bilaterally Neck Neck: Yes full ROM Resp Effort & Inspection: normal respiratory effort, able to speak in complete sentences, no audible wheezes and not labored Auscultation: clear to auscultation bilaterally Cardio Other: 3+ bilateral pitting edema to lower extremities Rate: regular rate Rhythm: regular rhythm GI Inspection: Yes distended Palpation (GI): Soft to palpation, not firm, nontender, no guarding and not rigid Skin General skin exam: elasticity normal Neuro General: patient oriented x3 Cranial nerves: Yes Equal, round and reactive pupils present and Yes Bilaterally intact EOM present Cognition (Neuro): normal cognition Course Course Course Narrative: RME performed by Leila Hernandez PA-C. Patient is a 57 year old assigned female at presenting to the emergency department with right lower extremity swelling and left shoulder pain. Detailed physical exam and review of systems are deferred to the behavioral health clinician. Labs ordered. Patient placed back in the waiting room pending room availability and results. Medications Administered Discontinued Medications Generic Name Dose Route Start Last Admin Trade Name Jamieq PRN Reason Stop Dose Admin Lidocaine 2 patch 08/12/23 23:19 08/12/23 23:32 Lidocaine 4 % Patch Adh..Patch TRANSDERMA 08/12/23 23:20 2 patch ONCE ONE Administration Protocol Medical Decision Making Medical Decision Making MDM Narrative: 57-year-old male with multiple comorbidities as documented above presents for evaluation of leg swelling. He is anticoagulated, he has no pain. He has liver cirrhosis, mild chronic kidney disease. His symptoms are likely related to worsening liver disease. He is not encephalopathic. There was no evidence of CHF. He has no chest pain, shortness of breath. Vital signs are stable. The patient will be discharged with instructions to cut back on fluid, salt intake. He will increase his Lasix for 3 days and will follow up with his outpatient providers. He is afebrile, no leukocytosis. The patient has a chronic normocytic anemia which is consistent with his baseline. Differential Diagnosis Differential Diagnoses: The differential diagnosis associated with the presentation includes Dependent edema CHF Lower extremity edema Cellulitis less likely Lab Data MDM Lab Attestation statement: I reviewed the patient's lab results. No leukocytosis. Chronic anemia as documented above. Normal platelet count. Patient's potassium is just above normal at 5.4 which is actually improved from a couple of days ago. Chloride is elevated to 114 which is chronic. Patient's CO2 is slightly low at 20. His mild MAKNENA with a BUN of 21 and a creatinine of 1.51. 08/12/23 16:54 08/12/23 16:54 Labs: Lab Results 08/12/23 08/12/23 Range/Units 16:54 20:53 WBC 6.5 (4.8-10.8) X10*3/uL RBC 2.80 L (4.60-5.80) X10*6/uL Hgb 8.0 L (14.0-18.0) g/dl Hct 23.5 L (42.0-52.0) % MCV 83.9 (80.0-98.0) fL MCH 28.6 (27.0-33.0) pg MCHC 34.0 (31.0-36.0) g/dl RDW 17.9 H (11.0-16.0) % Plt Count 187 D (160-400) X10*3/uL MPV 11.4 (9.4-12.4) fL Immature Gran % (Auto) 0.6 H (0.0-0.4) % Neut % (Auto) 65.0 (45-73) % Lymph % (Auto) 21.3 (20-40) % [place] % (Auto) 9.3 (2-11) % Eos % (Auto) 3.2 (0-4) % Baso % (Auto) 0.6 (0-2) % Lymph # (Auto) 1.4 (1.2-4.9) X10*3/uL [place] # (Auto) 0.6 (0.1-1.2) X10*3/uL Eos # (Auto) 0.2 (0.0-0.4) X10*3/uL Baso # (Auto) 0.0 (0.0-0.2) X10*3/uL Abs Immat Gran (auto) 0.04 H (0.00-0.03) X10*3/uL Absolute Neuts (auto) 4.2 (2.0-8.3) x10*3/uL Absolute Nucleated RBC 0.000 (0.0-0.012) X10*3/uL Nucleated RBC % (auto) 0.0 (0.0-0.2) /100WBC Sodium 139 (135-145) mmol/L Potassium 5.4 H (3.3-5.1) mmol/L Chloride 114 H (96-108) mmol/L Carbon Dioxide 20 L (22-29) mmol/L Anion Gap 10 L (12-20) BUN 21 H (9-16) mg/dL Creatinine 1.51 H (0.5-1.4) mg/dL Estim Creat Clear Calc 68.8 Estimated GFR 48 Random Glucose 80 (60-115) mg/dL Calcium 8.2 L (8.4-10.2) mg/dL Magnesium 2.2 (1.6-2.6) mg/dL Total Bilirubin 1.4 H (0.0-1.0) mg/dL AST 45 H (5-37) U/L ALT 26 (0-40) U/L Alkaline Phosphatase 130 H (39-117) U/L Total Protein 6.9 (6.5-8.0) g/dL Albumin 2.4 L (3.5-5.0) g/dL Urine Color Dark Yellow Urine Appearance Clear Urine pH 5.5 (5.0-9.0) Ur Specific [place] 1.020 (1.005-1.025) Urine Protein Negative (Neg-Trace) mg/dL Urine Glucose (UA) Negative (Negative) mg/dL Urine Ketones Trace (Negative) mg/dL Urine Blood Negative (Negative) Urine Nitrite Negative (Negative) Ur Leukocyte Esterase Trace H (Negative) Urine RBC 0-2 (0-2) /HPF Urine WBC 0-5 (0-5) /HPF Ur Squamous Epith Cells 0-2 (0-2) /HPF Urine Bacteria None Seen (None Seen) Hyaline Casts 3-5 (0-2) /LPF Radiology Impression Discussion of test interpretation with radiology: I have reviewed the radiologist's reading. Radiologist Impression: XR/XR shoulder LT min 2V IMPRESSION: No fracture or dislocation of the left shoulder. Discharge Plan Discharge Clinical Impression: Chronic hepatic failure, Dependent edema Patient Disposition: Home, Self-Care Instructions: Cirrhosis (ED), Leg Edema (ED) Additional Instructions: Your workup in the ER today was reassuring. Your blood counts were low but consistent with her baseline Your electrolytes were similar to where they were when you were here a few days ago Your kidney function was slightly worse Given the amount of swelling, it is okay to take an additional Lasix pill once daily for the next 3 days Follow-up with your primary doctor Return for new or worsening symptoms Prescriptions: No Action rifaximin 550 mg tablet 550 mg PO BID 90 Days Qty: 180 1RF acetaminophen [Tylenol Extra Strength] 500 mg tablet 500 mg PO QID PRN (Reason: pain) Qty: 60 1RF Rx Instructions: Pls do not take more than 4 tablets in 24h. thiamine mononitrate (vit B1) 100 mg Tablet 100 mg PO DAILY Qty: 90 0RF multivitamin [Daily-Sherry] Tablet 1 tab PO DAILY Qty: 90 0RF (DME) Ultra-Light Rollator Misc See Rx Instructions .Route Qty: 1 0RF Rx Instructions: As directed (DME) [facility]er [facility] See Rx Instructions .Route Qty: 1 0RF Rx Instructions: As directed lactulose 20 gram/30 mL Solution 30 g PO TID Qty: 2880 0RF omeprazole 40 mg Capsule,Delayed Release(Dr/Ec) 40 mg PO DAILY 56 Days Qty: 142 0RF Rx Instructions: twice daily for 8 weeks then once daily melatonin 5 mg Tablet 5 - 10 mg PO BEDTIME PRN (Reason: Insomnia) zinc sulfate [Zinc-220] 50 mg zinc (220 mg) Capsule 220 mg PO DAILY 90 Days Qty: 396 0RF Ensure High Protein Liquid 1 ea PO BID 30 Days Qty: 51927 1RF furosemide 40 mg tablet 40 mg PO DAILY Qty: 90 0RF Hold Instructions: hold until follow up with GI on Tuesday Interventions: ED Discharge Assessment Last Done: 08/12/23 23:41 Discharge Date/Time: 08/12/23 23:43 Print Language: Occitan
[2023-08-12 16:58] LABS: MANUAL DIFF FLAG NO
[2023-08-12 17:13] LABS: Alanine Aminotransferase 26 U/L (0-40); Albumin Level 2.4 g/dL (3.5-5.0); Alkaline Phosphatase 130 U/L (39-117); Anion Gap 10 (12-20); Aspartate Amino Transferase 45 U/L (5-37); Bilirubin Total 1.4 mg/dL (0.0-1.0); Blood Urea Nitrogen 21 mg/dL (9-16); Calcium 8.2 mg/dL (8.4-10.2); Carbon Dioxide 20 mmol/L (22-29); Chloride 114 mmol/L (96-108); Creatinine Clr Calc Pharmacy 68.8; Estimated Glomerular Filt Rate 48; Glucose Random 80 mg/dL (60-115); Magnesium 2.2 mg/dL (1.6-2.6); Potassium 5.4 mmol/L (3.3-5.1); Sodium 139 mmol/L (135-145); Total Protein 6.9 g/dL (6.5-8.0)
[2023-08-12 17:18] LABS: Basophils Percent Auto 0.6 % (0-2); Eosinophils Absolute Auto 0.2 X10*3/uL (0.0-0.4); Eosinophils Percent Auto 3.2 % (0-4); Hematocrit 23.5 % (42.0-52.0); Imm Gran Abs Auto 0.04 X10*3/uL (0.00-0.03); Imm Gran Pct Auto 0.6 % (0.0-0.4); Lymphocytes Absolute Auto 1.4 X10*3/uL (1.2-4.9); Lymphocytes Percent Auto 21.3 % (20-40); Mean Corpuscular Hemoglobin 28.6 pg (27.0-33.0); Mean Corpuscular Volume 83.9 fL (80.0-98.0); Mean Platelet Volume 11.4 fL (9.4-12.4); Monocytes Absolute Auto 0.6 X10*3/uL (0.1-1.2); Monocytes Percent Auto 9.3 % (2-11); Neutrophils Absolute Auto 4.2 x10*3/uL (2.0-8.3); Platelet Count 187 X10*3/uL (160-400); Red Cell Distribution Width 17.9 % (11.0-16.0); White Blood Count 6.5 X10*3/uL (4.8-10.8)
[2023-08-12 20:51] VITALS: BP 108/67; PULSE 65; RESP 16; TEMP 36.6; O2SAT 98
[2023-08-12 21:01] LABS: Appearance Urine Clear; Color Urine Dark Yellow; Glucose Urine UA Negative (Negative); Leukocyte Esterase Urine Trace (Negative); Nitrite Urine Negative (Negative); PH 5.5 (5.0-9.0); UMIC TRIGGER UACC YES; Urine Blood Negative (Negative); Urine Ketones Trace mg/dL (Negative); Urine Protein Negative (Neg-Trace)
[2023-08-12 21:03] LABS: Bacteria Urine None Seen (None Seen); RBC Urine 0-2 /HPF (0-2); Squamous Epithelial Cell Urine 0-2 /HPF (0-2); WBC Urine 0-5 /HPF (0-5)
[2023-08-12] MEDS: Lidocaine 4 % Patch ADH..PATCH 2 PATCH TRANSDERMA (23:32)
[2023-08-12 23:39] VITALS: BP 103/66; PULSE 72; RESP 14; TEMP 36.4; O2SAT 98
[2023-08-12 23:41] VITALS: BP 103/66; PULSE 72; RESP 14; TEMP 36.4; O2SAT 98
== END 2023-08-12 23:43 | disposition home or self-care (01) ==
PROVIDERS: Physician Assistant Medical; Emergency Provider Emergency Medicine; PCP Internal Medicine
DX: R60.0 Localized edema (principal); K72.10 Chronic hepatic failure without coma; M25.512 Pain in left shoulder; D64.9 Anemia, unspecified; Z79.899 Other long term (current) drug therapy
CPT/HCPCS: 36415; 73030; 80053; 81001; 81003; 83735; 85025; 99283; 99284

== ENCOUNTER 2023-08-17 20:45 | Inpatient (IN) | payer BC, SELFPAY ==
--- NOTE | 2023-08-17 | ECG_ITS ---
Test Reason : WEAKNESS Blood Pressure : / mmHG Vent. Rate : 075 BPM Atrial Rate : 075 BPM P-R Int : 140 ms QRS Dur : 134 ms QT Int : 436 ms P-R-T Axes : -07 -26 008 degrees QTc Int : 486 ms Normal sinus rhythm Right bundle branch block Abnormal ECG When compared with ECG of 18-JUL-2023 14:46, No significant change was found Referred By: Generic ED Physician Electronically Signed By:FANY MARCUM
--- NOTE | ~2023-08-17 | CT_ITS ---
EXAMINATION: CT ABDOMEN AND PELVIS WITH CONTRAST CLINICAL INFORMATION: Splenorenal shunt COMPARISON: 05/31/2023 TECHNIQUE: Multidetector volumetric images were obtained from the superior aspect of the liver through the pubic symphysis following administration 85 mL of Omnipaque 350 intravenous contrast. Sagittal and coronal reformatted images were obtained on the technologist's workstation. Oral contrast: No This CT examination was performed using dose optimization techniques as appropriate, variously including the following: *Automated exposure control *Adjustment of mA and/or kV according to patient size (this includes techniques or standardized protocols for targeted exams where dose is matched to indication/reason for exam; i.e. extremities or head) *Use of iterative reconstruction technique DLP: 946 mGy-cm FINDINGS: LUNG BASES: Bibasilar subsegmental atelectasis. LIVER, GALLBLADDER, AND BILIARY TREE: The liver demonstrates a slightly nodular contour with homogeneous attenuation. No focal hepatic lesion or biliary ductal dilatation is present. Patient is status post cholecystectomy. PANCREAS: Unremarkable. SPLEEN: Borderline enlarged. ADRENAL GLANDS: Unremarkable. KIDNEYS AND URETERS: Bilateral nephrograms are symmetric. Multiple bilateral renal sinus cysts are redemonstrated; no follow-up recommended. BLADDER: Unremarkable. GASTROINTESTINAL TRACT: Small bowel suture line is present in the central abdomen. No convincing evidence of bowel obstruction. No definite bowel wall thickening, though evaluation of some segments of the colon is limited due to luminal collapse. ABDOMINAL WALL: Diffuse anasarca. Small fat-containing ventral hernias. LYMPH NODES: Enlarged peripancreatic lymph node on image 27/101 measures 1.6 cm in short axis dimension, without significant change from prior. Multiple enlarged bilateral inguinal lymph nodes, similar to prior. VASCULAR: Mildly prominent veins in the left upper quadrant, with suspected splenorenal shunt. PELVIC VISCERA: Unremarkable. OSSEOUS STRUCTURES: Few healing anterolateral right rib fractures. Degenerative changes are noted in the spine. Several thoracolumbar vertebral body compression deformities appear without significant change. CT/CT abdomen pelvis w IV con IMPRESSION: 1. No new acute findings identified in the abdomen/pelvis. 2. Diffuse anasarca. 3. Redemonstrated findings of cirrhosis and portal hypertension along with suspected splenorenal shunt. 4. Redemonstrated enlarged peripancreatic and bilateral inguinal lymph nodes, without significant change from 05/31/2023. These are nonspecific and may be reactive, though a malignant etiology could potentially have a similar appearance.
[2023-08-17 20:56] VITALS: BP 142/72; PULSE 62; O2SAT 98
[2023-08-17 21:07] VITALS: BP 113/64; PULSE 73; RESP 19; TEMP 36.8; O2SAT 99; BMI 31.0
[2023-08-17 21:42] LABS: MANUAL DIFF FLAG NO
[2023-08-17 21:48] LABS: Basophils Absolute Auto 0.1 X10*3/uL (0.0-0.2); Basophils Percent Auto 0.8 % (0-2); Eosinophils Absolute Auto 0.3 X10*3/uL (0.0-0.4); Eosinophils Percent Auto 3.3 % (0-4); Hematocrit 22.7 % (42.0-52.0); Imm Gran Abs Auto 0.03 X10*3/uL (0.00-0.03); Imm Gran Pct Auto 0.4 % (0.0-0.4); Lymphocytes Absolute Auto 1.8 X10*3/uL (1.2-4.9); Lymphocytes Percent Auto 21.6 % (20-40); Mean Corpuscular HGB Conc 35.2 g/dl (31.0-36.0); Mean Corpuscular Hemoglobin 28.9 pg (27.0-33.0); Mean Corpuscular Volume 81.9 fL (80.0-98.0); Mean Platelet Volume 9.8 fL (9.4-12.4); Monocytes Absolute Auto 1.2 X10*3/uL (0.1-1.2); Monocytes Percent Auto 14.3 % (2-11); Neutrophils Absolute Auto 4.9 x10*3/uL (2.0-8.3); Neutrophils Percent Auto 59.6 % (45-73); Platelet Count 173 X10*3/uL (160-400); Red Blood Count 2.77 X10*6/uL (4.60-5.80); Red Cell Distribution Width 17.5 % (11.0-16.0); White Blood Count 8.3 X10*3/uL (4.8-10.8)
[2023-08-17 22:03] LABS: Anion Gap 10 (12-20)
[2023-08-17 22:04] LABS: Troponin-I High Sensitivity 3.2 ng/L (<3.5-35.0)
[2023-08-17 22:07] LABS: Alanine Aminotransferase 31 U/L (0-40); Albumin Level 2.5 g/dL (3.5-5.0); Alkaline Phosphatase 130 U/L (39-117); Aspartate Amino Transferase 61 U/L (5-37); Bilirubin Total 1.5 mg/dL (0.0-1.0); Blood Urea Nitrogen 18 mg/dL (9-16); Calcium 8.4 mg/dL (8.4-10.2); Carbon Dioxide 21 mmol/L (22-29); Chloride 114 mmol/L (96-108); Creatinine Clr Calc Pharmacy 84.1; Estimated Glomerular Filt Rate > 60; Glucose Random 95 mg/dL (60-115); Lipase 52 U/L (8-78); Potassium 4.8 mmol/L (3.3-5.1); Sodium 140 mmol/L (135-145); Total Protein 7.1 g/dL (6.5-8.0)
--- NOTE | 2023-08-17 23:25 | ED.AMS ---
HPI - Altered Mental Status General Chief Complaint: Altered Mental Status Stated Complaint: confusion, weakness, dizziness, LKWT TUESDAY Time Seen by Provider: 08/17/23 22:42 Source: patient and family Mode of arrival: EMS Limitations: no limitations History of Present Illness HPI narrative: Patient is a 57-year-old male who presents to the emergency department with sister for evaluation. Patient reports that since yesterday he has noticed increasing shakiness predominantly to his hands and generalized weakness. Per patient's sister who is present at bedside she expresses concern about increase in confusion. Patient reportedly was speaking to her about having bowel incontinence overnight and having to clean himself and linens, she denies this to be possible, citing that there was no evidence of dirty linens in the house, and that he would typically be unable to clean himself in this fashion. She is concerned that he possibly had a dream, or is confused about reality. She also states that patient's niece was asking him about phone numbers to contact someone which he would typically no at baseline but he was unable to recall the numbers. She reports he has a longstanding history of liver cirrhosis, and she expresses concern when he has any bouts of confusion or increased shakiness. She states ?I just want to make sure everything is okay?. They are also endorsing chronic lower extremity edema, which she reports is actually improved recently after the increase of Lasix for a couple days following his recent ED visit. He reports compliance with his lactulose, and denies any recent medication changes, alcohol consumption with citing last drink to be May 2023, or drug usage. Related Data Home Medications ?Medication ?Instructions ?Recorded ?Confirmed melatonin 5 mg tablet 5 - 10 mg PO BEDTIME PRN Insomnia 07/18/23 07/18/23 Previous Rx's ?Medication ?Instructions ?Recorded walker #1 ea 09/21/22 multivitamin (Daily-Sherry tablet) 1 tab PO DAILY #90 tabs 06/07/23 thiamine mononitrate (vit B1) 100 100 mg PO DAILY #90 tabs 06/07/23 mg tablet walker (Ultra-Light Rollator misc) #1 ea 06/07/23 lactulose 20 gram/30 mL oral 30 g (45 mL) PO TID #2,880 mL 06/20/23 solution furosemide 40 mg tablet 40 mg PO DAILY #90 tabs 06/28/23 omeprazole 40 mg capsule,delayed 40 mg PO DAILY 8 weeks #142 caps 07/06/23 release rifaximin 550 mg tablet 550 mg PO BID 90 days #180 tabs 07/14/23 zinc sulfate 50 mg zinc (220 mg) 220 mg (4.4 x 50 mg zinc (220 mg)) 07/22/23 capsule (Zinc-220) PO DAILY 90 days #396 caps food supplemt, lactose-reduced 1 ea PO BID 30 days #14,220 mL 07/25/23 (Ensure High Protein oral liquid) acetaminophen 500 mg tablet 500 mg PO QID PRN pain #60 tabs 07/29/23 (Tylenol Extra Strength) Allergies Allergy/AdvReac Type Severity Reaction Status Date / Time No Known Allergies Allergy Verified 08/17/23 21:09 Review of Systems Review of Systems: Yes all other systems are reviewed and are negative [facility] Past Medical History Attestation statement: The following information was validated with the patient. Source: old records reviewed Medical History Cirrhosis Anemia Abdominal wall swelling Hyperammonemia Hepatic steatosis Diarrhea resulting from infection of the bowel mucosa Liver lesion Substance use Alcohol use disorder Anemia Chronic kidney disease Alcohol dependence Surgical History Hx of colonoscopy Hx of esophagogastroduodenoscopy History of urologic surgery H/O varicose vein stripping S/P bariatric surgery Social History Social History Household Members: Family Household Members Other:: 2 Housing: Apartment Do you presently have visiting nurse or other home services: Yes (PT) Alcohol intake: former Comment: Refused in bathroom supervision. Patient Tobacco Use Status: Former Tobacco user Quit Date: 05/30/23 Tobacco use type: Cigarette Smoked in Last 30 Days: No Second Hand Smoke Exposure: No Use of substances other than those prescribed or required for medical reasons: No Substance Use Type: Crack/Cocaine and Marijuana Advance Directives: Yes Advance Directives on File: Yes Advance Directives Date on File: 06/08/23 Do you have a plan to hurt others: No Plan service: No Current occupational status: employed Physical Exam ED Vital Signs: Vital Signs - 24 hr 08/17/23 21:07 08/17/23 23:30 Temperature 98.3 F 98.3 F Pulse Rate 73 76 Respiratory Rate 19 19 Blood Pressure 113/64 110/57 L Pulse Oximetry 99 97 Oxygen Delivery Method Room Air Room Air BMI result Body Mass Index 31.0 Appearance: Alert.?Oriented to person, place and time. No acute distress.?Normal affect. Eyes: Pupils equal, round and reactive to light.? Scleral icterus ENT: Pharynx normal.?? Neck: Normal inspection.? Neck supple.?? CVS: Heart sounds normal. Normal heart rate and rhythm.? Pulses normal.?? Respiratory: No respiratory distress.? Lung sounds clear to auscultation bilaterally?? Abdomen: Soft and non-tender. Normoactive bowel sounds. No pulsatile mass Skin: Skin warm and dry.? Jaundice ?? Extremities: 2+ bilateral pitting lower extremity edema.? No calf ttp? Neuro: Moves all extremities spontaneously. Sensation intact bilaterally. Positive asterixis. CN II-XII intact. No focal neuro deficits. Ambulates with normal steady gait. Medications Administered Generic Name Dose Route Start Last Admin Trade Name Freq PRN Reason Stop Dose Admin Melatonin 6 mg 08/18/23 00:28 08/18/23 00:57 Melatonin 3 Mg Tablet PO 6 mg BEDTIME PRN Administration Insomnia Discontinued Medications Generic Name Dose Route Start Last Admin Trade Name Freq PRN Reason Stop Dose Admin Iohexol 85 ml 08/18/23 01:21 08/18/23 01:22 Iohexol 350 Mg/Ml 100 Ml Infus..Btl IV 08/18/23 01:22 85 ml ONCE ONE Administration Lactulose 30 gm 08/18/23 00:22 08/18/23 00:54 Lactulose 20 Gm/30 Ml Solution PO 08/18/23 00:23 30 gm ONCE ONE Administration Medical Decision Making Medical Decision Making MDM Narrative: Patient is a 57-year-old male with past medical history of cirrhosis, anemia, alcohol use disorder, chronic kidney disease, hepatic encephalopathy presenting to emergency department with reports of increased shakiness and family expressing concerns for confusion as per HPI. CBC is without leukocytosis, normocytic anemia consistent with baseline, no thrombocytopenia. Chronically elevated chloride consistent with baseline, no MAKENNA, renal function has improved when compared to prior on 08/12/2023. Transaminases normal range. Ammonia level 109, sister feels strongly about hospital admission at this time given his mentation and concern that he will further decompensate, I spoke with hospitalist Dr. Correa who accepts patient for admission. Differential Diagnosis Differential Diagnoses: The differential diagnosis associated with the presentation includes (Hepatic encephalopathy, EtOH, UTI, anemia) Admission/Observation Consideration of admission/observation: Escalation of care including admission/observation considered (See narrative above) Lab Data MDM Lab Attestation statement: I reviewed the patient's lab results. (See narrative above) 08/17/23 21:37 08/17/23 21:37 Labs: Lab Results 08/17/23 08/17/23 08/18/23 Range/Units 21:37 23:08 00:15 WBC 8.3 (4.8-10.8) X10*3/uL RBC 2.77 L (4.60-5.80) X10*6/uL Hgb 8.0 L (14.0-18.0) g/dl Hct 22.7 L (42.0-52.0) % MCV 81.9 (80.0-98.0) fL MCH 28.9 (27.0-33.0) pg MCHC 35.2 (31.0-36.0) g/dl RDW 17.5 H (11.0-16.0) % Plt Count 173 (160-400) X10*3/uL MPV 9.8 (9.4-12.4) fL Immature Gran % (Auto) 0.4 (0.0-0.4) % Neut % (Auto) 59.6 (45-73) % Lymph % (Auto) 21.6 (20-40) % [place] % (Auto) 14.3 H (2-11) % Eos % (Auto) 3.3 (0-4) % Baso % (Auto) 0.8 (0-2) % Lymph # (Auto) 1.8 (1.2-4.9) X10*3/uL [place] # (Auto) 1.2 (0.1-1.2) X10*3/uL Eos # (Auto) 0.3 (0.0-0.4) X10*3/uL Baso # (Auto) 0.1 (0.0-0.2) X10*3/uL Abs Immat Gran (auto) 0.03 (0.00-0.03) X10*3/uL Absolute Neuts (auto) 4.9 (2.0-8.3) x10*3/uL Absolute Nucleated RBC 0.000 (0.0-0.012) X10*3/uL Nucleated RBC % (auto) 0.0 (0.0-0.2) /100WBC Sodium 140 (135-145) mmol/L Potassium 4.8 (3.3-5.1) mmol/L Chloride 114 H (96-108) mmol/L Carbon Dioxide 21 L (22-29) mmol/L Anion Gap 10 L (12-20) BUN 18 H (9-16) mg/dL Creatinine 1.20 (0.5-1.4) mg/dL Estim Creat Clear Calc 84.1 Estimated GFR > 60 Random Glucose 95 (60-115) mg/dL Calcium 8.4 (8.4-10.2) mg/dL Magnesium 2.0 (1.6-2.6) mg/dL Total Bilirubin 1.5 H (0.0-1.0) mg/dL AST 61 H (5-37) U/L ALT 31 (0-40) U/L Alkaline Phosphatase 130 H (39-117) U/L Ammonia 109 H (13-55) umol/L Troponin I High Sens 3.2 (<3.5-35.0) ng/L B-Natriuretic Peptide 290 H (<100) pg/mL Total Protein 7.1 (6.5-8.0) g/dL Albumin 2.5 L (3.5-5.0) g/dL Lipase 52 (8-78) U/L Urine Color Yellow Urine Appearance Clear Urine pH 7.5 (5.0-9.0) Ur Specific [place] 1.020 (1.005-1.025) Urine Protein Negative (Neg-Trace) mg/dL Urine Glucose (UA) Negative (Negative) mg/dL Urine Ketones Negative (Negative) mg/dL Urine Blood Negative (Negative) Urine Nitrite Negative (Negative) Ur Leukocyte Esterase Trace H (Negative) Urine RBC 0-2 (0-2) /HPF Urine WBC 0-5 (0-5) /HPF Ur Squamous Epith Cells 0-2 (0-2) /HPF Urine Bacteria None Seen (None Seen) Hyaline Casts 0-2 (0-2) /LPF Urine Opiates Screen Not Detected (Not Detect) Ur Buprenorphine Scrn Not Detected (Not Detect) ng/mL Ur Oxycodone Screen Not Detected (Not Detect) ng/mL Urine Methadone Screen Not Detected (Not Detect) ng/mL Urine Fentanyl Screen Not Detected (Not Detect) Ur Barbiturates Screen Not Detected (Not Detect) Ur Phencyclidine Scrn Not Detected (Not Detect) Ur Amphetamines Screen Not Detected (Not Detect) U Benzodiazepines Scrn Not Detected (Not Detect) Urine Cocaine Screen Not Detected (Not Detect) U Marijuana (THC) Screen Not Detected (Not Detect) Ethyl Alcohol < 10 mg/dL Influenza Type A (PCR) NEGATIVE (Negative) Influenza Type B (PCR) NEGATIVE (Negative) RSV RNA Qual (PCR) NEGATIVE (Negative) SARS-CoV-2 RNA (RT-PCR) NEGATIVE (Negative) Independent Historian Clinical information obtained from an independent historian. History obtained from or confirmed by: EMS and Other (Sister present who confirms history) Discharge Plan Discharge Clinical Impression: Hepatic encephalopathy Patient Disposition: Admitted As Inpatient
[2023-08-17 23:30] VITALS: BP 110/57; PULSE 76; RESP 19; TEMP 36.8; O2SAT 97
[2023-08-17 23:30] LABS: Ethanol < 10 mg/dL
[2023-08-17 23:37] LABS: B Type Natriuretic Peptide 290 pg/mL (<100)
[2023-08-17 23:53] LABS: Influenza A PCR NEGATIVE (Negative); Influenza B PCR NEGATIVE (Negative); Resp Syncy Virus RNA Qual PCR NEGATIVE (Negative); SARS COV2 PCR INHOUSE NEGATIVE (Negative)
[2023-08-18] VITALS (9 sets, daily range): BP systolic 95–110; BP diastolic 53–65; PULSE 62–85; RESP 12–22; TEMP 36.4–37.6; O2SAT 94–96
[2023-08-18 00:07] LABS: Ammonia 109 umol/L (13-55)
[2023-08-18 00:23] LABS: Appearance Urine Clear; Color Urine Yellow; Glucose Urine UA Negative (Negative); Leukocyte Esterase Urine Trace (Negative); Nitrite Urine Negative (Negative); PH 7.5 (5.0-9.0); UMIC TRIGGER UACC YES; Urine Blood Negative (Negative); Urine Ketones Negative (Negative); Urine Protein Negative (Neg-Trace)
[2023-08-18 00:25] LABS: Bacteria Urine None Seen (None Seen); Hyaline Casts Urine 0-2 /LPF (0-2); RBC Urine 0-2 /HPF (0-2); Squamous Epithelial Cell Urine 0-2 /HPF (0-2); WBC Urine 0-5 /HPF (0-5)
--- NOTE | 2023-08-18 00:30 | P.HPHOSP_ITS ---
History of Present Illness Date of Service: 08/18/23 Chief Complaint: Altered mentation This is a 57-year-old male with pertinent history of alcoholic cirrhosis, gastroesophageal reflux disease who was brought to the emergency department by his sister for evaluation of confusion. Sister states that she has noticed confusion that has been ongoing for the past 2 days. Patient has been forgetting things over the last 2 days. He also was speaking to the sister about having bowel incontinence and cleaning himself but the sister stated that this never happened as she did not see any dirty linens and he would not be able to clean himself. Patient was talking to the knees and was not making sense. He also forgot phone numbers which was unlike him. She also noticed increased shaking on the day of presentation. Patient is compliant with home lactulose. States his last drink was in May 2023. No nausea, vomiting, abdominal pain. The sister states that patient stools may have been darker but she is unsure and no evidence of blood. No fever, chills, chest discomfort, palpitations, shortness of breath, changes in urinary habits In the emergency department, ammonia was found to be 109 Review of Systems 2 Review of Systems: Yes Unobtainable due to mental status PMFSH Medical History Cirrhosis Anemia Abdominal wall swelling Hyperammonemia Hepatic steatosis Diarrhea resulting from infection of the bowel mucosa Liver lesion Substance use Alcohol use disorder Anemia Chronic kidney disease Alcohol dependence Pertinent family history: No family history of early CAD Surgical History Hx of colonoscopy Hx of esophagogastroduodenoscopy History of urologic surgery H/O varicose vein stripping S/P bariatric surgery Social History Household Members: Family Household Members Other:: 2 Housing: Apartment Do you presently have visiting nurse or other home services: Yes (PT) Alcohol intake: former Comment: Refused in bathroom supervision. Patient Tobacco Use Status: Former Tobacco user Quit Date: 05/30/23 Tobacco use type: Cigarette Smoked in Last 30 Days: No Second Hand Smoke Exposure: No Use of substances other than those prescribed or required for medical reasons: No Substance Use Type: Crack/Cocaine and Marijuana Advance Directives: Yes Advance Directives on File: Yes Advance Directives Date on File: 06/08/23 Do you have a plan to hurt others: No Plan service: No Current occupational status: employed Meds Allergies Allergy/AdvReac Type Severity Reaction Status Date / Time No Known Allergies Allergy Verified 08/17/23 21:09 Home Medications ?Medication ?Instructions ?Recorded ?Confirmed ?Last Taken ?Type melatonin 5 mg tablet 5 - 10 mg PO BEDTIME PRN Insomnia 07/18/23 07/18/23 Unknown History Physical Exam 2 Vital Signs and Narrative: Vital Signs: Last Vital Signs Temp 98.3 F 08/17/23 23:30 Pulse 76 08/17/23 23:30 Resp 19 08/17/23 23:30 BP 110/57 L 08/17/23 23:30 Pulse Ox 97 08/17/23 23:30 O2 Del Method Room Air 08/17/23 23:30 BMI result Body Mass Index 31.0 Middle-aged male lying in bed in no distress Neck supple, no JVD Regular rate and rhythm, S1-S2 heard Regular breath sounds bilaterally, no wheezing or crackles appreciated Abdomen soft nontender, no guarding, no rigidity Patient is awake, alert and oriented to self, place, asterixis present Psych: Normal mood Bilateral pedal edema Results Labs 08/17/23 21:37 08/17/23 21:37 Labs: Laboratory Results - last 24 hr 08/17/23 08/17/23 08/18/23 21:37 23:08 00:15 MCV 81.9 MCH 28.9 MCHC 35.2 RDW 17.5 H Plt Count 173 MPV 9.8 Immature Gran % (Auto) 0.4 Neut % (Auto) 59.6 Lymph % (Auto) 21.6 [place] % (Auto) 14.3 H Eos % (Auto) 3.3 Baso % (Auto) 0.8 Lymph # (Auto) 1.8 [place] # (Auto) 1.2 Eos # (Auto) 0.3 Baso # (Auto) 0.1 Abs Immat Gran (auto) 0.03 Absolute Neuts (auto) 4.9 Absolute Nucleated RBC 0.000 Nucleated RBC % (auto) 0.0 Anion Gap 10 L Estim Creat Clear Calc 84.1 Estimated GFR > 60 Random Glucose 95 Calcium 8.4 Magnesium 2.0 Total Bilirubin 1.5 H AST 61 H ALT 31 Alkaline Phosphatase 130 H Ammonia 109 H Troponin I High Sens 3.2 B-Natriuretic Peptide 290 H Total Protein 7.1 Albumin 2.5 L Lipase 52 Urine Color Yellow Urine Appearance Clear Urine pH 7.5 Ur Specific [place] 1.020 Urine Protein Negative Urine Glucose (UA) Negative Urine Ketones Negative Urine Blood Negative Urine Nitrite Negative Ur Leukocyte Esterase Trace H Urine RBC 0-2 Urine WBC 0-5 Ur Squamous Epith Cells 0-2 Urine Bacteria None Seen Hyaline Casts 0-2 Ethyl Alcohol < 10 Influenza Type A (PCR) NEGATIVE Influenza Type B (PCR) NEGATIVE RSV RNA Qual (PCR) NEGATIVE SARS-CoV-2 RNA (RT-PCR) NEGATIVE Assessment and Plan (1) Hepatic encephalopathy: Status: Acute Plan This is a 57-year-old male with pertinent history of alcoholic cirrhosis, gastroesophageal reflux disease who was brought to the emergency department by his sister for evaluation of confusion. #. Acute hepatic encephalopathy grade 2 in a patient with alcoholic cirrhosis: Continue lactulose for 2-3 bowel movements per day. Continue rifaximin and zinc supplementation. On furosemide 40 mg p.o.. Reviewed GI note from 07/24> will obtain CT with contrast to rule out splenorenal shunt in a patient with recurrent encephalopathy. #. Chronic normocytic anemia: Monitor H&H, if drops consider GI consult for colonoscopy #. Gastroesophageal reflux disease: On PPI #. Alcohol use disorder on thiamine Med rec pending DVT prophylaxis: Mechanical Admit as inpatient and will require two night minimum hospital stay for close monitoring of mentation, evaluation of recurrent encephalopathy (as above), which is not possible in a lesser acute setting. Quality Stroke Does the patient have a stroke diagnosis?: No VTE Prior VTE?: No VTE Risk Level:: Medical - moderate - high VTE Device Contraindication: Treatment Not Indicated VTE Drug Contraindication: N/A - Med Ordered
[2023-08-18 00:41] LABS: Amphetamine Screen Urine Not Detected (Not Detect); Barbiturates, Urine Not Detected (Not Detect); Benzodiazepines Screen Urine Not Detected (Not Detect); Buprenorphine Scr Not Detected (Not Detect); Cannabinoid Screen Urine Not Detected (Not Detect); Cocaine Screen Urine Not Detected (Not Detect); Fentanyl, urine Not Detected (Not Detect); Methadone Screen, Urine Not Detected (Not Detect); Opiate Screen Urine Not Detected (Not Detect); Oxycodone Screen Urine Not Detected (Not Detect); Phencyclidine Screen Urine Not Detected (Not Detect)
--- OUTSIDE RECORDS SUMMARY | 2023-08-18 00:41 | XMS_ITS | Continuity of Care Document ---
Author Organization [facility] ter Address [address] [place] [id number]- Care Team Providers Care Touch Up Worker Name Role Phone Not on Staff, PCP Primary Care Physician Unavail able [place] [facility] [place] - 08/06/[address] [address]- Encounter Diagnosis AMS (altered mental status)(Final) - 08/02/23 Discharge Disposition: A-D/C Home Attending Physician: Yoel ODOM, Schuyler Admitting Physician: Azam ODOM, Sharif Livingston Referring Physician: Not on Staff, Referring MD Allergies, Adverse Reactions, Alerts No Known Allergies Medications Acetaminophen Tablet 650 mg, Tablet, By Mouth, Every 4 hours, PRN for Pain , Mild, Temperature Greater than 100.5, Routine, 08/02/23 14:19:00 EDT Start Date: 08/02/23 Stop Date: 08/06/23 Status: Discontinued cephalexin monohydrate 500 mg oral capsule = 500 mg, By Mouth, Every 6 hours, for 10 days, Start 08/06, # 40 capsule, 0 Refills, Acute 249:57:00 EDT, 08/06/23 9:57:00 EDT, Capsule, [facility] - [place], [place] - [phone], Partialfill upon patient request if the prescription is fo... Start Date: 08/06/23 Stop Date: 08/16/23 Status: Ordered HydrOXYzine HCL Tablet = 10 mg, By Mouth, 4 times a day, PRN Itch, 0 Refills, Maintenance, 08/03/23 1:14:00 EDT, Tablet, Partial fill upon patient request if the prescription is for a schedule II opioid drug. Start Date: 08/03/23 Status: Ordered lactulose 10 gm/15 ml oral syrup 240 mL = 160 Gm, Rectally, Every 4 hours, PRN as needed for constipation, # 150 mL, 2 Refills, Acute 08/06/24 9:59:00 EDT, 08/06/23 9:59:00 EDT, Syrup, [place], [place] - [phone],Partial fill upon patient request if the prescripti... Start Date: 08/06/23 Stop Date: 08/06/24 Status: Ordered Lasix 20 mg oral tablet 20 mg, 1, tablet, By Mouth, Daily, # 30 tablet, Refills 0, Maintenance, 08/03/23 1:13:00 EDT, Partial fill upon patient request if the prescription is for a schedule II opioid drug. Start Date: 08/03/23 Status: Ordered midodrine 5 mg oral tablet 5 mg, Tablet, By Mouth, 08/06/23 9:00:00 EDT Start Date: 08/06/23 Stop Date: 08/06/23 Status: Completed midodrine 5 mg oral tablet 5 mg, By Mouth, 3 times a day, # 90 tablet, Refills 2, Tot. Refills 2, Maintenance, 08/06/23 9:59:00 EDT, Route to Pharmacy Electronically, [place], [place] - [phone], Partial fill upon patient request if the prescription is for a... Start Date: 08/06/23 Status: Ordered Multivitamin 0 Refills, Maintenance, 08/03/23 1:13:00 EDT, Partial fill upon patient request if the prescriptionis for a schedule II opioid drug. Start Date: 08/03/23 Status: Ordered rifAXIMin 550 mg oral tablet 1 tablet = 550 mg, By Mouth, 2 times a day, # 60 tablet, 0 Refills, Maintenance, 08/03/23 1:12:00 EDT, Tablet, Partial fill upon patient request if the prescription is for a schedule II opioid drug. Start Date: 08/03/23 Status: Ordered thiamine 100 mg oral tablet 100 mg, 1, tablet, By Mouth, Daily, # 7 tablet, Refills 0, Maintenance, 08/03/23 1:14:00 EDT, Partial fill upon patient request if the prescription is for a schedule II opioid drug. Start Date: 08/03/23 Stop Date: 08/10/23 Status: Ordered Results Radiology Reports * Exam Date Time Procedure Performing Provider Status 08/02/23 3:40 PM Chest 2 Views Frontal and Lat Kathleen Lockwood; Auth (Verified) Notes: (Chest 2 Views Frontal and Lat) Reason For Exam: Shortness of Breath, Fever;Other: RESULT: Chest 2 Views Frontal and Lat Chest 2 Views Frontal and Lat Reason: Other:; Shortness of Breath, Fever; Clinical Question(s): Pneumonia COMPARISON: None. FINDINGS: Slightly limited examination due to the patient's body habitus and underpenetration. LINES AND TUBES: None. LUNGS AND PLEURA: Significantly low lung volumes with mild bibasilar atelectasis left slightly worse than right.. No significant large areas of consolidation seen in either lung. Normal pulmonary vascularity. No significant pleural effusions are seen. No pneumothorax. HEART, MEDIASTINUM AND MAE: Top normal heart size. Normal mediastinal and hilar contour. Moderate tortuosity thoracic aorta. BONES AND SOFT TISSUES: No acute abnormality. IMPRESSION: Slightly limited examination due to the patient's body habitus and underpenetration. Significantly low lung volumes with minimal bibasilar atelectasis left slightly worse than the right. No pulmonary vascular congestion or significant focal consolidation is seen. WSN: [id number] Ordering Physician: Deepak Hernandez Dictated By: Juan Triplett MD, V Dictated Date/Time: 08/02/23 3:44 pm Reviewed By: Juan Triplett MD, V Signed By: Juan Triplett MD, V Signed Date/Time: 08/02/23 3:44 pm Transcribed By: MELISSA Transcribed Date/Time: 08/02/23 3:41 pm * Exam Date Time Procedure Performing Provider Status 08/02/23 1:01 PM US Doppler Ext Lower Venous Right Marla Santamaria; Auth (Verified) Notes: (US Doppler Ext Lower Venous Right) Reason For Exam: Pain in limb;Other: RESULT: US Doppler Ext Lower Venous Right US Doppler Ext Lower Venous Right Reason: Pain in limb, lower extremity swelling; Clinical Question(s): Thrombus COMPARISON: None IMAGING TECHNIQUE: Ultrasound of the veins from the groin through the calf was performed using grayscale, color, and spectral Doppler ultrasound assessing for complete compressibility and normal flowcharacteristics. FINDINGS: Common femoral vein: Patent. No thrombosis. Femoral vein: Patent. No thrombosis. Popliteal vein: Patent. No thrombosis. Gastrocnemius veins: The visualized portions are patent without evidence of thrombosis. Peroneal veins: The visualized portions are patent without evidence of thrombosis. Posterior tibial veins: The visualized portions are patent without evidence of thrombosis. Contralateral common femoral vein: Patent. No thrombosis. OTHER FINDINGS: There is diffuse edema. IMPRESSION: No evidence of deep venous thrombosis. WSN: [id number] Ordering Physician: Deepak Hernandez Dictated By: Moustapha Hitchcock MD Dictated Date/Time: 08/02/23 1:38 pm Reviewed By: Moustapha Hitchcock MD Signed By: Moustapha Hitchcock MD Signed Date/Time: 08/02/23 1:38 pm Transcribed By: MELISSA Transcribed Date/Time: 08/02/23 12:58 pm * Exam Date Time Procedure Performing Provider Status 08/02/23 11:[address] Abd/Pelvis W/ IV Contrast Only nOdina Turner; Auth (Verified) Notes: (CT Abd/Pelvis W/ IV Contrast Only) Reason For Exam: LLQ abdominal pain;Other: RESULT: CT Abd/Pelvis W/ IV Contrast Only CT Abd/Pelvis W/ IV Contrast Only Hx of Present Illness: Left lower quadrant abdominal pain. TECHNIQUE: Spiral CT through the abdomen and pelvis with IV contrast formatted in 3 planes. 100 cc of Omnipaque 300 was administered intravenously. This study was performed without oral contrast. Weight-based protocol using automatic tube modulation was used to optimize exposure parameters. CTDIvol Body: 18.55 mGy, DLP Body: 1105 mGy*cm. COMPARISON: None. FINDINGS: Study is partially degraded by patient motion artifact. Aircraft Stress Analyst View Findings, Lines and Tubes: None. Visualized Chest: Minimal dependent atelectasis. Diaphragm: Normal. Liver: Normal. Gallbladder: Absent consistent with prior cholecystectomy. Bile ducts: No biliary ductal dilation. Spleen: Normal. Pancreas: Normal. Adrenal glands: Normal. Kidneys and ureters: Bilateral peripelvic cysts. No hydronephrosis. No suspicious mass. No calculi. Bladder: Underdistended. Reproductive organs: Unremarkable. Stomach, small bowel, and large bowel: No obstruction. No inflammatory change. Appendix: Not seen, but no evidence of appendicitis. Peritoneum and retroperitoneum: No ascites or pneumoperitoneum. No omental or mesenteric lesions. Lymph nodes: Shotty retroperitoneal lymph nodes. Multiple small lymph nodes along the celiac axis and portacaval station. Blood vessels: Normal. No aneurysm. No evidence of venous thrombosis. Abdominal and pelvic wall: Severe anasarca. Small fat-containing ventral hernia. Bones: Chronic appearing mild to moderate compression deformity at L2 and T11. IMPRESSION: Extensive anasarca/third spacing. Otherwise no acute abnormality. Small upper abdominal lymph nodes, nonspecific and could be reactive. WSN: [id number] Ordering Physician: Deepak Hernandez Dictated By: Klaus Zafar MD Dictated Date/Time: 08/02/23 12:17 p Reviewed By: Klaus Zafar MD Signed By: Klaus Zafar MD Signed Date/Time: 08/02/23 12:17 pm Transcribed By: MELISSA Transcribed Date/Time: 08/02/23 12:08 pm Vital Signs Most recent to oldest [Reference Range]: 1 2 3 Height 184 cm (08/06/23 8:01 AM) 184 cm (08/05/23 3:25 PM) 184 cm (08/05/23 7:25 AM) Weight 95 kg (08/06/23 6:00 AM) 95 kg (08/02/23 10:02 PM) 94.1 kg (08/02/23 6:30 PM) Oxygen Saturation [94-100 %] 99 % (08/06/23 8:01 AM) 100 % (08/06/23 3:00 AM) 100 % (08/05/23 7:00 PM) Pulse Rate [55-90 bpm] 66 bpm (08/06/23 8:28 AM) 66 bpm (08/06/23 8:01 AM) 73 bpm (08/06/23 3:00 AM) Body Mass Index [18.5-24.99 kg/m2] 28.06 kg/m2 *H* (08/02/23 10:02 PM) Blood Pressure [90-138/55-84 mm Hg] 99/60mm Hg (08/06/23 8:28 AM) 99/60mm Hg (08/06/23 8:01 AM) 91/46mm Hg (08/06/23 3:00 AM) Respiratory Rate [16-30 br/min] 19 br/min (08/06/23 9:28 AM) 18 br/min (08/06/23 8:01 AM) 20 br/min (08/06/23 3:00 AM) Temperature [96.8-100.4 DegF] 98.0 DegF (08/06/23 8:01 AM) 98.2 DegF (08/06/23 3:00 AM) 98.5 DegF (08/05/23 7:00 PM) Liters per Minute 2 L/min (08/05/23 3:49 AM) 2 L/min (08/04/23 9:00 PM) Mode of Delivery (Oxygen) Room air (08/06/23 8:01 AM) Room air (08/06/23 3:00 AM) Room air (08/05/23 7:00 PM) Blood pressure sites Arm, left (08/06/23 8:01 AM) Arm, left (08/06/23 3:00 AM) Arm, left (08/05/23 7:00 PM) Temperature Route Oral (08/06/23 8:01 AM) Oral (08/06/23 3:00 AM) Oral (08/05/23 7:00 PM) Dry Weight 95 kg (08/02/23 10:02 PM) 94.1 kg (08/02/23 9:18 AM) 94.1 kg (08/02/23 8:55 AM) Weight Obtained Via Bed scale (08/02/23 10:02 PM) Dry Weight Obtained Via Bed scale (08/02/23 10:02 PM) Social History Social History Type Response Smoking Status Former smoker, quit more than 30 days ago entered on: 08/02/23 Sex History and physical note * Tal Weller MD: PERFORM Event Display: History and Physical Hospital Authored Date: [id number] Patient: ??MARICRUZ ALLEN ? Age:??57 Years?Sex:??Male?:??1965?? Chief Complaint/Reason for Consultation [place] [facility] [place], pt has a hx of liver disease, CHF, fibrosis, and anemia. Per patient's family patient has a hx of high ammonia levels and based on presentation he is presenting similarly History of Present Illness 57-year-old male presented to the emergency room??earlier today after a shaking episode at home??and malaise.?? The patient's sister is at the bedside who is his primary caregiver and assists with the history.?? She explains that the patient has a history of alcohol use disorder??and was hospitalized??in May of this year??in [facility]??for possibly decompensated cirrhosis.?? He had no previous??documented history of cirrhosis prior to then.?? He states that he was drinking up to a??pint or more of alcohol per day.?He then left [place] from the hospital in [place] and was taken to [facility] by his sister??where he was admitted.?? Apparently he was evaluated by GI??at that time.?? He had recurrent anemia??and underwent endoscopy??the results are unclear.?? He never had??a paracentesis per the sister.?? He did have a problem requiring a surgical procedure to his penis???possibly phimosis.?? Nevertheless,??earlier today he had an episode of shaking chills at home??and possibly some shortness of breath.?? Consequently he was brought to the ER for evaluation.?? On arrival he was found to have a fever of 103.4.?? He was started empirically on Zosyn.?? He was transiently hypotensive with a blood pressure of 88/55.?? However his blood??blood pressure??normalized.?? He denies any??blood per rectum, melena, abdominal pain.?? He has a chronic cough and did vomit once today. ??He denies any shortness of breath??or dysuria.?? He has chronic right shoulder pain but no chestpain.?? A troponin was mildly elevated.?? He has been abstinent from alcohol since??May. ? EKG: sinus??92 bpm LAD RBBB ?? RESULT: CT Abd/Pelvis W/ IV Contrast Only CT Abd/Pelvis W/ IV Contrast Only?? IMPRESSION:?? Extensive anasarca/third spacing. Otherwise no acute abnormality. Small upper abdominal lymph nodes, nonspecific and could be reactive. ? RESULT: Chest 2 Views Frontal and Lat Chest 2 Views Frontal and Lat?? IMPRESSION: Slightly limited examination due to the patient's body habitus and underpenetration. Significantly low lung volumes with minimal bibasilar atelectasis left slightly worse than the right. No pulmonary vascular congestion or significant focal consolidation is seen. Review of Systems Constitutional:??Fever malaise Eyes:??No visual loss, blurred vision, double vision or yellow sclera ENT:??No hearing loss, sneezing, congestion, runny nose or sore throat. Respiratory:??No shortness of breath, cough or sputum production. Cardiovascular:??No chest pain, chest pressure or chest discomfort. No palpitations or pedal edema. Gastrointestinal:??No anorexia, nausea, vomiting or diarrhea. No abdominal pain or blood in stool. Genitourinary:??No burning micturition. No urinary frequency or incontinence. Neurologic:??No headache, dizziness, syncope, unilateral weakness, ataxia, numbness or tingling in the extremities. Musculoskeletal:??No muscle pain, back pain, joint pain or stiffness. Skin:??No rash or itching. Endocrine:??No reports of sweating. No cold or heat intolerance. No polyuria or polydipsia. Psychiatric:??No depression or anxiety. Objective Measurements?? Height: 184 cm (08/02/23) Weight: 95 kg (08/02/23) Dry Weight: 95 kg (08/02/23) Body Mass Index:??28.06 kg/m2??High (08/02/23) ? Vital Signs?? Temperature: 99.2 DegF (08/02/23 22:02:00) Temperature Route: Oral (08/02/23 22:02:00) Pulse Rate: 84 bpm (08/02/23 22:02:00) Respiratory Rate: 18 br/min (08/02/23 23:31:00) Systolic Blood Pressure: 96 mm Hg (08/02/23 22:02:00) Diastolic Blood Pressure:??54 mm Hg??Low (08/02/23 22:02:00) Blood pressure sites: Arm, right (08/02/23 22:02:00) Mean Arterial Pressure: 68 mm Hg (08/02/23 22:02:00) Pulse Pressure: 42 mm Hg (08/02/23 22:02:00) Oxygen Saturation: 96 % (08/02/23 22:02:00) Mode of Delivery (Oxygen): Room air (08/02/23 22:02:00) Early Warning Score: 1 (08/03/23 01:57:13) Early Warning Score: 4 (08/03/23 01:57:13) Early Warning Score: 4 (08/03/23 01:57:13) ? Physical Exam Constitutional: Alert, in no distress. Mental Status: Oriented to person, place and time. Head: Normocephalic. Eyes: Pupils are equal, round and reactive to light. Extraocular muscles intact. Ear, Nose and Throat: Oropharynx clear, mucous membranes moist.?? Neck: Supple, Full range of motion. Respiratory: Clear to auscultation. No wheezing, rales or rhonchi. Cardiovascular: S1 S2 regular. No murmurs, rubs or gallops. Gastrointestinal: Abdomen soft, non-tender, Normal bowel sounds.?? Right lower quadrant??induration??warmth/cellulitic. ??No fluctuation Neurologic: Cranial nerves II-XII grossly intact. No focal neurological deficits. Flexor plantar response. Moves all extremities spontaneously. Sensation intact bilaterally. Musculoskeletal: No cyanosis or clubbing. No gross deformities. Normal range of motion. Psychiatric: Normal mood and affect Assessment/Plan Gram-positive bacteremia (R78.81):??. Sepsis (A41.9):??. Cellulitis (L03.90):? As noted above he presents with??significant fever, chills, transient hypotension concerning for sepsis On exam he has a right lower quadrant abdominal??cellulitis Initial blood cultures positive??for gram-positive cocci Will add vancomycin??pending culture results Lactate normalized and blood pressure improved ?? Elevated troponin (R79.89):? Elevated troponin with no active chest pain Nonischemic EKG Likely??demand ischemia in the setting of sepsis/hypotension I discussed with cardiology on-call They recommended trending the troponin??agree likely demand ischemia. Check echocardiogram Formal consult if abnormal echocardiogram??in the a.m. ?? Hepatic encephalopathy (K76.82):? Currently alert and oriented Continue lactulose ?? Cirrhosis of liver (K74.60):? Continue rifaximin, lactulose Hold Lasix in light of transient hypotension GI consult in a.m. ?? Anemia (D64.9):? Likely chronic although no previous labs Trend hemoglobin Transfuse for hemoglobin less than 7 ?? Alcohol use disorder in remission (F10.91):? Denies active alcohol use Add thiamine ?? VTE Prophylaxis:? Pneumatic compression boots ?VTE Prophylaxis Assessment:??VTE Prophylaxis Ordered ?? Code Status:? Full code Confirmed with patient at bedside ?Order Code Status:??Code Status Ordered ?? Patient seen 08/02/2023 ? Histories Allergies Allergies ?(Active and Proposed Allergies Only) NKA? (Severity: Unknown severity, Onset: Unknown) ? Past Medical History/Problem List Alcohol use disorder in remission Cirrhosis Anemia Gastric bypass ? Social History Patient lives with his sister Non-smoker No active alcohol use since May ?? Family History Mother diabetes Father dementia ? Medications Home Medications Furosemide (Lasix 20 mg oral tablet)?20?Milligram?1?tablet?By Mouth?Daily HydrOXYzine (HydrOXYzine HCL Tablet)?10?Milligram?By Mouth?4 times a day?as needed?Itch Lactulose (lactulose 10 gm/15 ml oral syrup)?30?Milliliter?20?gram?By Mouth?3 times a day Rifaximin (rifAXIMin 550 mg oral tablet)?1?tab(s)?550?Milligram?By Mouth?2 times a day Thiamine (thiamine 100 mg oral tablet)?100?Milligram?1?tablet?By Mouth?Daily?for 7?Days ? Results Recent Labs BACTERIOLOGY Blood Culture Results Preliminary report (Abnormal)?? 08/02/2023 09:05 Blood Culture Isolate 1 Gram positive cocci (Abnormal)?? 08/02/2023 09:05 Reflex to Rapid ID, YURIY Comment ()?? 08/02/2023 09:05 Blood Cult 2 Results Preliminary report (Abnormal)?? 08/02/2023 09:15 Blood Culture 2 Isolate 1 Gram positive cocci (Abnormal)?? 08/02/2023 09:15 A calcoaceticus-baumannii comp,Culture 1 Not Detected ()?? 08/02/2023 09:05 Bacteroides fragilis, Culture 1 Not Detected ()?? 08/02/2023 09:05 Enterobacterales, Culture 1 Not Detected ()?? 08/02/2023 09:05 Enterobacter cloacae complex, Culture 1 Not Detected ()?? 08/02/2023 09:05 Escherichia coli, Culture 1 Not Detected ()?? 08/02/2023 09:05 Klebsiella aerogenes, Culture 1 Not Detected ()?? 08/02/2023 09:05 Klebsiella oxytoca, Culture 1 Not Detected ()?? 08/02/2023 09:05 Klebsiella pneumoniae group, Culture 1 Not Detected ()?? 08/02/2023 09:05 Proteus spp., Culture 1 Not Detected ()?? 08/02/2023 09:05 Salmonella spp., Culture 1 Not Detected ()?? 08/02/2023 09:05 Serratia marcescens, Culture 1 Not Detected ()?? 08/02/2023 09:05 Haemophilus influenzae, Culture 1 Not Detected ()?? 08/02/2023 09:05 Neisseria meningitidis, Culture 1 Not Detected ()?? 08/02/2023 09:05 Pseudomonas aeruginosa, Culture 1 Not Detected ()?? 08/02/2023 09:05 Stenotrophomonas maltophilia, Culture 1 Not Detected ()?? 08/02/2023 09:05 Enterococcus faecalis, Culture 1 Not Detected ()?? 08/02/2023 09:05 Enterococcus faecium, Culture 1 Not Detected ()?? 08/02/2023 09:05 Listeria monocytogenes, Culture 1 Not Detected ()?? 08/02/2023 09:05 Staphylococcus spp., Culture 1 Not Detected ()?? 08/02/2023 09:05 Staphylococcus aureus, Culture 1 Not Detected ()?? 08/02/2023 09:05 Staphylococcus epidermidis, Culture 1 Not Detected ()?? 08/02/2023 09:05 Staphylococcus lugdunensis, Culture 1 Not Detected ()?? 08/02/2023 09:05 Streptococcus spp., Culture 1 DETECTED (Abnormal)?? 08/02/2023 09:05 Streptococcus agalactiae, Culture 1 DETECTED (Abnormal)?? 08/02/2023 09:05 Streptococcus pneumoniae, Culture 1 Not Detected ()?? 08/02/2023 09:05 Streptococcus pyogenes, Culture 1 Not Detected ()?? 08/02/2023 09:05 Little albicans, Culture 1 Not Detected ()?? 08/02/2023 09:05 Little auris, Culture 1 Not Detected ()?? 08/02/2023 09:05 Little glabrata, Culture 1 Not Detected ()?? 08/02/2023 09:05 Little krusei, Culture 1 Not Detected ()?? 08/02/2023 09:05 Little parapsilosis, Culture 1 Not Detected ()?? 08/02/2023 09:05 Little tropicalis, Culture 1 Not Detected ()?? 08/02/2023 09:05 Cryptococcus neoformans/gattii,Culture 1 Not Detected ()?? 08/02/2023 09:05 IMP (Carbapenemases), Culture 1 Not applicable ()?? 08/02/2023 09:05 KPC (Carbapenemases), Culture 1 Not applicable ()?? 08/02/2023 09:05 OXA-48-like (Carbapenemases), Culture 1 Not applicable ()?? 08/02/2023 09:05 NDM (Carbapenemases), Culture 1 Not applicable ()?? 08/02/2023 09:05 VIM (Carbapenemases), Culture 1 Not applicable ()?? 08/02/2023 09:05 mcr-1 (Colistin Resistance), Culture 1 Not applicable ()?? 08/02/2023 09:05 CTX-M (ESBL), Culture 1 Not applicable ()?? 08/02/2023 09:05 mecA/C(Methicillin Resistance),Culture 1 Not applicable ()?? 08/02/2023 09:05 mecA/C and MREJ (MRSA), Culture 1 Not applicable ()?? 08/02/2023 09:05 Dash/B (Vancomycin Resistance),Culture 1 Not applicable ()?? 08/02/2023 09:05 ?? BLOOD COUNT & DIFF WBC 5.5 k/mm3 ()?? 08/02/2023 09:05 RBC 3.14 m/mm3 (Low)?? 08/02/2023 09:05 Hgb 9.0 Gm/dL (Low)?? 08/02/2023 09:05 Hct 27.2 % (Low)?? 08/02/2023 09:05 MCV 86.6 femtoliters ()?? 08/02/2023 09:05 MCH 28.7 pg ()?? 08/02/2023 09:05 MCHC 33.1 g/dL ()?? 08/02/2023 09:05 Platelet Count 155 k/mm3 ()?? 08/02/2023 09:05 RDW-SD 54.6 femtoliters (High)?? 08/02/2023 09:05 MPV 12.0 femtoliters ()?? 08/02/2023 09:05 Nucleated RBC (Automated) 0.0 #/100 WBC'S ()?? 08/02/2023 09:05 Abs. NRBC 0.0 k/mm3 ()?? 08/02/2023 09:05 Abs. Neut 4.9 k/mm3 ()?? 08/02/2023 09:05 Abs. Lymph 0.4 k/mm3 (Low)?? 08/02/2023 09:05 Abs. [place] 0.1 k/mm3 (Low)?? 08/02/2023 09:05 Abs. Eo 0.0 k/mm3 ()?? 08/02/2023 09:05 Abs. Baso 0.0 k/mm3 ()?? 08/02/2023 09:05 Neut % 89.6 % (High)?? 08/02/2023 09:05 Lymph % 7.1 % (Low)?? 08/02/2023 09:05 [place] % 2.2 % (Low)?? 08/02/2023 09:05 Eos % 0.5 % ()?? 08/02/2023 09:05 Baso % 0.2 % ()?? 08/02/2023 09:05 Imm Gran 0.4 % ()?? 08/02/2023 09:05 Abs. Imm Gran 0.0 k/mm3 ()?? 08/02/2023 09:05 ?? CARDIAC Nt-Probnp 768 pg/mL (High)?? 08/02/2023 09:05 High Sensitivity Troponin (HSTnT) 57 ng/L (Critical)?? 08/03/2023 01:05 ?? CHEM GENERAL Sodium 138 mmol/L ()?? 08/03/2023 01:05 Potassium 4.0 mmol/L ()?? 08/03/2023 01:05 Chloride 111 mmol/L (High)?? 08/03/2023 01:05 Bicarbonate Level 19 mmol/L (Low)?? 08/03/2023 01:05 Anion Gap 8 ()?? 08/03/2023 01:05 Glucose Level 88 mg/dL ()?? 08/03/2023 01:05 BUN 23 mg/dL (High)?? 08/03/2023 01:05 Creatinine-Blood 1.3 mg/dL (High)?? 08/03/2023 01:05 Estimated GFR Creatinine 65 ML/MIN/1.73 M2 ()?? 08/03/2023 01:05 Calcium 8.2 mg/dL (Low)?? 08/02/2023 09:05 Protein, Total 7.1 Gm/dL ()?? 08/02/2023 09:05 Albumin 3.2 Gm/dL (Low)?? 08/02/2023 09:05 AG Ratio 0.8 ()?? 08/02/2023 09:05 Alkaline Phosphatase 137 units/L (High)?? 08/02/2023 09:05 Lipase 71 units/L (High)?? 08/02/2023 09:05 AST (SGOT) 65 units/L (High)?? 08/03/2023 01:05 ALT (SGPT) 32 units/L ()?? 08/03/2023 01:05 Bilirubin, Total 1.5 mg/dL (High)?? 08/03/2023 01:05 Vitamin B12 Level 1428 pg/mL (High)?? 08/02/2023 09:05 Folic Acid Level 12.2 ng/mL ()?? 08/02/2023 09:05 Lactate 2.2 mmol/L ()?? 08/03/2023 01:05 Iron Level 85 mcg/dL ()?? 08/02/2023 09:05 Iron Binding Capacity, Unsaturated 34 mcg/dL (Low)?? 08/02/2023 09:05 Iron Binding Capacity, Estimated Total 119 mcg/dL (Low)?? 08/02/2023 09:05 % Iron Saturation 71 % (High)?? 08/02/2023 09:05 ?? COAG INR 1.8 (High)?? 08/03/2023 01:05 Protime (PT) 18.6 seconds (High)?? 08/03/2023 01:05 APTT 30.5 seconds ()?? 08/02/2023 09:05 ?? HEME OTHER Hold Lavender Top SPECIMEN DISCARDED AFTER 24 HOURS. ()?? 08/02/2023 09:05 ?? MISC. CHEMISTRY Ammonia, Venous 115 ??mole/L (High)?? 08/03/2023 01:05 ?? UA/URINALYSIS Appear/Color, Urine YELLOW ()?? 08/02/2023 15:20 Specific [place], Urine >1.050 (High)?? 08/02/2023 15:20 pH, Urine 6.0 ()?? 08/02/2023 15:20 Albumin, Urine 1+ (Abnormal)?? 08/02/2023 15:20 Glucose, Urine NEGATIVE ()?? 08/02/2023 15:20 Ketones, Urine TRACE (Abnormal)?? 08/02/2023 15:20 Bilirubin, Urine NEGATIVE ()?? 08/02/2023 15:20 Hemoglobin, Urine NEGATIVE ()?? 08/02/2023 15:20 Nitrite, Urine NEGATIVE ()?? 08/02/2023 15:20 Leukocyte, Urine NEGATIVE ()?? 08/02/2023 15:20 Urobilinogen NORMAL mg/dL ()?? 08/02/2023 15:20 WBC's, Urine NONE SEEN /HPF ()?? 08/02/2023 15:20 RBC's, Urine NONE SEEN /HPF ()?? 08/02/2023 15:20 Bacteria SLIGHT HPF (Abnormal)?? 08/02/2023 15:20 Squamous Epith <1 /HPF ()?? 08/02/2023 15:20 Hold Urine Culture Testing available 48 hours from time of collection. ()?? 08/02/2023 15:20 ?? URINE OTHER Est Creatinine Clearance 71.39 mL/min ()?? 08/03/2023 01:57 ?? VIROLOGY Influenza A PCR NEGATIVE ()?? 08/02/2023 19:52 Influenza B PCR NEGATIVE ()?? 08/02/2023 19:52 RSV PCR NEGATIVE ()?? 08/02/2023 19:52 COVID-19 PCR Result NEGATIVE ()?? 08/02/2023 19:52 ? EKG study * Event Display: EKG Authored Date: * Event Display: ECG 12-Lead Authored Date: Please click on pdf link to open report * Event Display: ECG 12-Lead Authored Date: Ventricular Rate: 92 BPM Atrial Rate: 92 BPM P-R Interval: 176 ms QRS Duration: 146 ms Q-T Interval: 404 ms QTC Calculation(Bazett): 499 ms P Ona: 28 degrees R Ona: -30 degrees T Ona: 11 degrees Sinus rhythm with occasional Premature ventricular complexes Left axis deviation Right bundle branch block Abnormal ECG No previous ECGs available Confirmed by Tommy Fairbanks ([id number]) on 08/02/2023 12:32:34 PM Reese: Tommy Fairbanks Heart * Event Display: Echocardiogram - Complete Authored Date: Transthoracic Echocardiography Report (TTE) Patient Demographics Patient Name MARICRUZ ALLEN Date of Study 08/04/2023 Corporate Gender Male Facility Race Ethnicity or Date of 1965 Height: 71.65 inches Age 57 year(s) Weight: 209 pounds Accession Number [id number] BSA: 2.16 m2 Room Number W472 BMI: 28.62 kg/m2 Referring Physician Tal Weller Interpreting Josi Monk MD, MD Physician Decorative Engraver Ryan Tucker [facility] Fellow Emir Macias MD Indications NSTEMI. Clinical History ELEVATED TROPONIN POSSIBLE GA ALTERED MENTAL STATUS CIRRHOSIS OF RIVER Study Data Type of Study TTE procedure:Echo Complete-(Doppler, Colorflow) with Contrast. Study Date08/04/2023 Start Time: 03:11 PM [place] [facility] [place] Status: Bedside Patient Status: Routine Technical Quality: Adequate Blood Pressure:132/80 mmHg EKG: Normal sinus rhythm HR: 64 bpm Contrast Medium: Definity. Amount - 2 ml 2D Measurements LV Diastolic Dimension: 5.4 cm LV Systolic Dimension: 3.3 cm LV Septum Diastolic: 1.1 cm LV PW Diastolic: 1.1 cm AO Root Dimension: 3.6 cm LA Dimension: 4.6 cm LA ESV (BP):94.83 ml LVOT Stroke Volume: 111.68 ml LA ESV Index: 44 ml/m2 Stroke Volume Index51.7 ml/m2 LVOT: 2.4 cm Cardiac Index:3.31 l/min/m2 Ascending Aorta:3.8 cm Doppler Measurements AV Peak Velocity: 134 cm/s MV Peak E-Wave: 96.7 cm/s AV Peak Gradient: 7.18 mmHg MV Peak A-Wave: 54.4 cm/s AV Mean Gradient: 4 mmHg MV E/A Ratio: 1.78 AV VTI:32.5 cm MV P1/2t: 64 msec LVOT Peak Velocity: 107 cm/s LVOT VTI24.7 cm MV Deceleration Time: 217 msec AV Area (Continuity):3.44 cm2 MV Area (PHT): 3.44 cm2 TR Velocity:197 cm/s PV Peak Velocity: 99.8 cm/s TR Gradient:15.52 mmHg PV Peak Gradient: 3.98 mmHg E' Septal Velocity: 12.1 cm/s E' Lateral Velocity: 15.1 cm/s E/Med E':[id number] E/Lat E':[id number] Cardiac Anatomy Left Ventricle/Interventricular Septum The left ventricular size is normal. Left ventricular wall thickness is normal. Normal LV systolic function. Ejection fraction is 60-65%. There are no regional wall motion abnormalities. There is septal bounce. Normal diastolic function. Left Atrium/Interatrial Septum The left atrium is moderately dilated. Aortic Valve The aortic valve is poorly visualized. The aortic valve is probably trileaflet . There is no aortic stenosis. There is no aortic regurgitation. Mitral Valve The mitral valve appears mildly thickened. There is mild mitral regurgitation. Aorta The aortic root is normal in size. The ascending aorta is normal in size when indexed to BSA. Right Ventricle The right ventricle is normal in size and function. Right Atrium The right atrium is normal in size. Pulmonic Valve The pulmonic valve is poorly visualized. Tricuspid Valve The tricuspid valve is grossly normal. There is no significant tricuspid valve regurgitation. Pumonary Artery An accurate pulmonary artery pressure could not be obtained. Venous Structures The inferior vena cava appears normal. Pericardium/Extracardiac There is no pericardial effusion. Summary The left ventricular size is normal. Left ventricular wall thickness is normal. Normal LV systolic function. Ejection fraction is 60-65%. There are no regional wall motion abnormalities. There is septal bounce. Normal diastolic function. The aortic valve is poorly visualized. The aortic valve is probably trileaflet . There is no aortic stenosis. There is no aortic regurgitation. The right ventricle is normal in size and function. There is no pericardial effusion. Comparison No prior study available for comparison. Signature * Event Display: Echocardiogram - Complete Authored Date: [place] [employer] Progress note * Natalie Jackman RN: PERFORM, SIGN, VERIFY Event Display: Progress Note Hospital Authored Date: Patient: MARCIRUZ ALLEN Age: 57 years Sex: Male : 1965 Associated Diagnoses: None Author: Miguel Sharma RN, Natalie Findings Problem Related to Alteration in Integumentary : Alteration in Integumentary/new 08/06/2023 7:00 EDT Alteration in Integumentary Related to Cellulitis Goals & Outcomes, Integumentary Other: R/O right lower abdominal cellulitus Interventions, Integumentary Consult Wound Care as needed for further interventions, Encourage & assist pt to change position frequently, Encourage & assist with range of motion exercises, Encourage family participation in pt's care as they are able, Interdisciplinary consults as appropriate, Keep bed as flat as tolerated to reduce shearing, Keep linen clean, dry and wrinkle free, Keep skin clean & dry, Maintain sterile technique with dressing changes, Minimize friction, shear and moisture, Monitor reddened areas for continued or increasing reddness, Record extent of impaired skinintegrity, Relieve pressure off bony areas, Reposition pt off reddened areas, Teach Pt/caregiver s/s of infection, Teach Pt/S.O. risks of & measures to prevent skin breakdown, Use fecal incontinence appliance if pt incontinent of stool . Nursing Data Integumentary Data. : Integumentary Data. 08/05/2023 21:00 EDT Skin Abnormality Other: R pannus fungal rash Skin Integrity Intact Activity Walks occasionally Mobility Slightly limited Integumentary WNL except Abdomen Right Skin Abnormality Type: Cellulitis (Modified) Wound Assessment Activity: Reassessment Wound Dressing: Open to air, Zinc Oxide (Modified) Wound Surrounding Tissue: In Error (In Error) Drainage Amount: None (Modified) Drainage Type: In Error (In Error) Abdomen Right Skin Abnormality Type: Excoriation Wound Assessment Activity: Reassessment Skin Abnormality Color: Other: fungal rash with some open areas . Vital Signs : VITAL SIGNS SECTION 08/06/2023 3:00 EDT Temperature 98.2 DegF Temperature Route Oral Pulse Rate 73 bpm Respiratory Rate 20 br/min Systolic Blood Pressure 91 mm Hg Diastolic Blood Pressure 46 mm Hg L Blood pressure sites Arm, left Pulse Pressure 45 mm Hg Oxygen Saturation 100 % Mode of Delivery (Oxygen) Room air . Evaluation Patient A/Ox3. VSS overnight, Hypotensive @ baseline. Pt compliant w/ care and able to make needs known. Sister remained at bedside overnight to help with care. +2 L/leg and +4 R\Leg edema noted. +PP. LS CTA patient making wheezing sounds with throat. O2 sat >90% on RA. ABD SNT. Protuberant On r/side 2/2 cellulitis. some excoriation noted in R/pannus. Bowel sounds present. Skin Jaundice. Pt c/o R/shoulder pain.. administered Tylenol w/ + effect. Patient resting in bed. All appropriate safetymeasures remain in place. Hourly checks completed. Plan of care ongoing. See CIS for biophysical and further assessments.. Discharge Information Case Management Discharge Plan : Case Management Discharge Plan Data 08/04/2023 12:40 EDT Discharge Level of Care at Discharge Homehealth/VNA Discharge VNA/Hospice/Home Care [facility] [phone] Service Categories #1 Occupational Therapy, Physical Therapy, Senior Living Service Comments #1 The above agency will be providing visiting home services. They should contact you within 24 ??? 48 hours of returning home. If they do not, please contact the company at the above number. Rehabilitation Discharge : Rehab Discharge Index 08/03/2023 8:32 EDT Comments on treatment indicated 57 y/o M presented to the emergency room earliertoday after a shaking episode at home and malaise. WBAT SKilled PT for therex, transfers, ambc LRAD, stairs. rec home c services c family support. Distance pt will ambulate >100 ft c LRAD Full chart review completed Yes Hospital course see comment Other findings Pt is a moderate complexity evaluation as circumstances leading to hospitalization impact POC and functional mobility. Plan of care PT Gait training, Transfer training, Therapeutic exercise, Functional Activities, Balance training, Neuromuscular education * Trang ODOM, John: PERFORM, MODIFY, MODIFY, MODIFY Event Display: Progress Note Hospital Authored Date: [id number] Patient: ??MARICRUZ ALLEN ? Age:??57 Years?Sex:??Male?:??1965?? Subjective Patient seen voices no complaints feeling better swelling on his??right lower extremity has improved and the redness is coming down?? voices no complaints of??pain ?patient is afebrile temperature 97.9 pulse 61 respiratory 20 blood pressure 100/58 O2 sats 100% room air Blood cultures drawn on 08/01 are positive for gram-positive cocci??but shows a Streptococcus agalactiae ?? Currently on ceftriaxone Objective Vitals & Measurements Vital Signs?? Temperature: 97.9 DegF (08/05/23 07:25:00) Temperature Route: Oral (08/05/23 07:25:00) Pulse Rate: 61 bpm (08/05/23 07:25:00) Respiratory Rate: 20 br/min (08/05/23 07:25:00) Systolic Blood Pressure: 100 mm Hg (08/05/23 07:25:00) Diastolic Blood Pressure: 58 mm Hg (08/05/23 07:25:00) Blood pressure sites: Arm, right (08/05/23 07:25:00) Mean Arterial Pressure: 72 mm Hg (08/05/23 07:25:00) Pulse Pressure: 42 mm Hg (08/05/23 07:25:00) Oxygen Saturation: 100 % (08/05/23 07:25:00) Liters per Minute: 2 L/min (08/05/23 03:49:00) Mode of Delivery (Oxygen): Room air (08/05/23 07:25:00) Early Warning Score: 6 (08/05/23 07:25:46) Physical Exam Constitutional: Alert, in no distress. Mental Status: Oriented to person, place and time. Neck: Supple, Full range of motion. Respiratory: Clear to auscultation. No wheezing, rales or rhonchi.?? Has??right- sided??mild gynecomastia with redness noted earlier has??almost resolved Cardiovascular: S1 S2 regular. No murmurs, rubs or gallops. Gastrointestinal: Abdomen soft, non-distended. Normal bowel sounds. ??Obese abdomen??has erythema decreased, temperature??and some mild tenderness noted in the??lower belly area??extending onto the??hypogastric area. Genitourinary: No costovertebral angle tenderness.?? Glans penis has a??2 to 3 mm ulcer which is nontender,??no inguinal lymphadenopathy appreciated Neurologic:??Moves all extremities spontaneously. Skin: Erythema of the??right??lower abdominal wall??as mentioned earlier Musculoskeletal: Noted swelling on the??right lower extremity??is improving??in the??medial aspect of the upper thigh??extending to mid??thigh he has??a scar Heme/Lymphatics/Immun: Palpation of neck reveals no swelling or tenderness of neck nodes. Palpationof groin reveals no swelling or tenderness of groin nodes. Psychiatric: Normal mood and affect *Tagged Labs Culture/Event_id: ?Blood Culture #[id number]?? Collect date: ?08/03/23 11:17 ? Result Status: ?Auth (Verified) Result Date: ?08/04/23 23:12 ? Specimen: BLOOD ? >??Blood Cult 2 Results:??Preliminary report?? Testing performed at [facility], [address], [address], ??[place] [address] Dir: Fran Arguello MD ?? >??Blood Culture 2 Specimen Source:??BLOOD?? NONE ?? >??Blood Culture 2 Isolate 1:?? No growth in 24 hours. Testing performed at [facility], [address], [address], [place] [address] Dir: Fran Arguello MD ? Culture/Event_id: ?Blood Culture/[id number]?? Collect date: ?08/03/23 11:17 ? Result Status: ?Auth (Verified) Result Date: ?08/04/23 23:12 ? Specimen: BLOOD ? >??Blood Culture Results:??Preliminary report?? Testing performed at [facility], [address], [address], ??[place] [address] Dir: Fran Arguello MD ?? >??Blood Culture Specimen Source:??BLOOD?? NONE ?? >??Blood Culture Isolate 1:?? No growth in 24 hours. Blood volume collected in bottle(s) was suboptimal. Consider recollection to improve recovery. Testing performed at [facility], [address], [address], [place] [address] Dir: Fran Arguello MD Test Name Test Result Date/Time WBC 8.0 k/mm3 08/05/2023 05:40 EDT WBC 13.7 k/mm3 08/04/2023 00:18 EDT Hgb 7.8 Gm/dL 08/05/2023 05:40 EDT Platelet Count 140 k/mm3 08/05/2023 05:40 EDT Platelet Count 128 k/mm3 08/04/2023 00:18 EDT BUN 24 mg/dL 08/05/2023 05:40 EDT Creatinine-Blood 1.1 mg/dL 08/05/2023 05:40 EDT Hepatitis B Surface Antigen NON REACTIVE 08/03/2023 04:57 EDT Hepatitis B Core Ab, IgM NON REACTIVE 08/03/2023 04:57 EDT Hepatitis C Ab NON REACTIVE 08/03/2023 04:57 EDT Blood Culture Specimen Source BLOOD 08/03/2023 11:17 EDT Blood Culture 2 Specimen Source BLOOD 08/03/2023 11:17 EDT Diagnostic Results ?Cardiac Anatomy ?Left Ventricle/Interventricular Septum ??The left ventricular size is normal. Left ventricular wall thickness is ??normal. Normal LV systolic function. Ejection fraction is 60-65%. There are ??no regional wall motion abnormalities. There is septal bounce. ??Normal diastolic function. ?Left Atrium/Interatrial Septum ??The left atrium is moderately dilated. ?Aortic Valve ??The aortic valve is poorly visualized. The aortic valve is probably ??trileaflet . There is no aortic stenosis. There is no aortic regurgitation. ?Mitral Valve ??The mitral valve appears mildly thickened. There is mild mitral ??regurgitation. ?Aorta ??The aortic root is normal in size. The ascending aorta is normal in size ??when indexed to BSA. ?Right Ventricle ??The right ventricle is normal in size and function. ?Right Atrium ??The right atrium is normal in size. ?Pulmonic Valve ??The pulmonic valve is poorly visualized. ?Tricuspid Valve ??The tricuspid valve is grossly normal. There is no significant tricuspid ??valve regurgitation. ?Pumonary Artery ??An accurate pulmonary artery pressure could not be obtained. ?Venous Structures ??The inferior vena cava appears normal. ?Pericardium/Extracardiac ??There is no pericardial effusion. ?Summary ??The left ventricular size is normal. Left ventricular wall thickness is ??normal. Normal LV systolic function. Ejection fraction is 60-65%. There are ??no regional wall motion abnormalities. There is septal bounce. ??Normal diastolic function. ??The aortic valve is poorly visualized. The aortic valve is probably ??trileaflet . There is no aortic stenosis. There is no aortic regurgitation. ??The right ventricle is normal in size and function. ??There is no pericardial effusion. ?Comparison ??No prior study available for comparison. Antibiotic History Active Antibiotics Calendar Day Last Administered First Administered Rifaximin??550 mg, By Mouth, 2 times a day ?3 08/05/2023 08:04 08/03/2023 00:16 Ceftriaxone??2 Gm, 100 mL/hr, IVPB, Every 24 hours ?2 08/05/2023 08:03 08/04/2023 09:10 ? Stopped Antibiotics Stop Date/Time Last Administered First Administered Vancomycin??1,250 mg, 166.67 mL/hr, IVPB, Every 24 hours 08/04/2023 07:13 08/03/2023 22:51 08/02/2023 22:30 Assessment/Plan 57-year-old male with past medical history of liver disease, fibrosis anemia presents to the ER with shaking episode was brought to the ER noted to have a temperature of 103.4 started on Zosyn, also transiently hypotensive after blood pressures were 88/55 patient has no complaints of any abdominal pain? Patient had a CT scan of the abdomen pelvis showing extensive anasarca/third spacing otherwise no acute abnormality.?? Small upper abdominal lymph nodes nonspecific and could be reactive.?? Had a Doppler of the right lower extremity showing no evidence of any DVT.?? Chest x-ray done shows low volumes with minimal bibasilar atelectasis left worse than right patient was noted to streptococcal bacteremia patient had blood cultures positive for Streptococcus agalactiae??most likely source could be from the skin??as he has??cellulitis/panniculitis??again has a small lesion on the glans penis??doubt it is the source.?? Continue??to give ceftriaxone??2 g??daily,for total duration of 14 days from the time of clearance of bacteremia but a shorter duration of 10 days can be given with rapidclearance of bacteremia and clinical improvement.?? Echocardiogram is negative.?? WBC has normalized??platelet count improved??probably from sepsis ?? Recommendations: Blood cultures from 08/02 are negative Continue??ceftriaxone??2 g??daily, WBC normalized At discharge??p.o. Keflex??500??4 times daily??for??10 days ID will sign off Call for questions ?? John. Trang ODOM PGY4 Infectious diseases Fellow ? This patient was seen and discussed with attending physician, Dr. Farmer ? * Darian ODOM, Herbert Hernandez: PERFORM Event Display: Progress Note Hospital Authored Date: [id number] Events reviewed. Patient was seen and examined. I agree with Dr. Costello's findings, assessment andplans below.Clinically improved. Bacteremia rapidly cleared and??with significant decreased in swelling and inflammation in right trunk and hip areas.??Plan of care was discussed with him in detail. Pls. call for questions. ?? Total time spent:??35 minutes ---- 20 mins: data gathering and reviwing test results plus 15 mins.on [id number] encounter, performing a medically necessary evaluation, decision making, ordering appropriate tests and coordination of care. ?? . * Yoel ODOM, [facility]: PERFORM Event Display: Progress Note Hospital Authored Date: Patient: ??MARICRUZ ALLEN ? Age:??57 Years?Sex:??Male?:??1965?? Subjective Patient states doing well and states his SBP runs 80s-90s. States he got SOB overnight but better now. Review of Systems N/a Objective Vital Signs?? Temperature: 97.9 DegF (08/05/23 07:25:00) Temperature Route: Oral (08/05/23 07:25:00) Pulse Rate: 61 bpm (08/05/23 07:25:00) Respiratory Rate: 20 br/min (08/05/23 07:25:00) Systolic Blood Pressure: 100 mm Hg (08/05/23 07:25:00) Diastolic Blood Pressure: 58 mm Hg (08/05/23 07:25:00) Blood pressure sites: Arm, right (08/05/23 07:25:00) Mean Arterial Pressure: 72 mm Hg (08/05/23 07:25:00) Pulse Pressure: 42 mm Hg (08/05/23 07:25:00) Oxygen Saturation: 100 % (08/05/23 07:25:00) Liters per Minute: 2 L/min (08/05/23 03:49:00) Mode of Delivery (Oxygen): Room air (08/05/23 07:25:00) Early Warning Score: 6 (08/05/23 07:25:46) ? Intake/Output? 08/01 13:20 08/04 07:00 08/03 07:00 08/02 07:00 08/01 07:00 ?? 08/04 09:04 08/04 09:04 08/04 06:59 08/03 06:59 08/02 06:59 Intake ? 4735 ?340 ?600 ? 3555 ?240 Output ? 2200 ?0 ? 1100 ?900 ?200 Net Total ? 2535 ?340 ? -500 ? 2655 ? 40 ? Urine Count ?1 ?0 ?1 ?0 ?0 ? Physical Exam Constitutional: Alert, in no distress. ?Mental Status: Oriented to person, place and time. ?Head: Normocephalic. ?Eyes: Pupils are equal, round and reactive to light. Extraocular muscles intact. Icterus present ?Ear, Nose and Throat: Oropharynx clear, mucous membranes moist.?Neck: Supple, Full range of motion. ?Respiratory: Clear to auscultation.B/l basal crackles present. On RA. ?Cardiovascular: S1 S2 regular. No murmurs, rubs or gallops. ?Gastrointestinal: Abdomen soft, non-tender, Normal bowel sounds.?No fluctuation. RLQ skin erythema and induration- improving and almost resovled ?Neurologic: Cranial nerves II-XII grossly intact. No focal neurological deficits. Flexor plantar response. Moves all extremities spontaneously. Sensation intact bilaterally. ?Musculoskeletal: No cyanosis or clubbing. No gross deformities. ??Decreased range of motion right shoulder??with 2+ pitting edema right leg. ?Psychiatric: Normal mood and affect _ Home Medications Furosemide (Lasix 20 mg oral tablet)?20?Milligram?1?tablet?By Mouth?Daily HydrOXYzine (HydrOXYzine HCL Tablet)?10?Milligram?By Mouth?4 times a day?as needed?Itch Rifaximin (rifAXIMin 550 mg oral tablet)?1?tab(s)?550?Milligram?By Mouth?2 times a day Thiamine (thiamine 100 mg oral tablet)?100?Milligram?1?tablet?By Mouth?Daily?for 7?Days ? Inpatient Medications Medications (15) Active SCHEDULED: (10) Ceftriaxone 2 Gm Inj (Ceftriaxone Inj) ??2 Gm, IVPB, Every 24 hours Furosemide 20 mg Tablet (Lasix 20 mg oral tablet) ??20 mg, By Mouth, Daily Lactulose 20 Gm/30mL Syrup (lactulose 10 gm/15 ml oral syrup) ??30 Gm 45 mL, By Mouth, 4 times a day Lactulose 20 Gm/30mL Syrup (lactulose 10 gm/15 ml oral syrup) ??20 Gm 30 mL, Rectally, Once Midodrine 5 mg Tablet (midodrine 5 mg oral tablet) ??5 mg, By Mouth, 3 times a day Multivitamin Tablet ??1 tablet, By Mouth, Daily NaCl 0.9% Flush 3ml (NaCL 0.9% Flush) ??3 mL, IV Push, Every 8 hours Pantoprazole 40 mg EC Tablet (pantoprazole 40 mg oral delayed release tablet) ??40 mg, By Mouth, Daily Rifaximin 550 mg Tab (RifAXIMIN Tablet) ??550 mg, By Mouth, 2 times a day Thiamine 100 mg Tablet (thiamine 100 mg oral tablet) ??100 mg, By Mouth, Daily CONTINUOUS: (0) PRN: (5) Acetaminophen 325 mg Tablet (Acetaminophen Tablet) ??650 mg, By Mouth, Every 4 hours Melatonin 3 mg Tablet (Melatonin Tablet) ??9 mg, By Mouth, Daily at bedtime NaCl 0.9% Flush 3ml (NaCL 0.9% Flush) ??3 mL, IV Push, Every 8 hours Polyethylene Glycol 17 Gm Powder (MiraLax Powder) ??17 Gm 1 pack/packet, By Mouth, Daily Senna Tablet ??8.6 mg 1 tablet, By Mouth, 2 times a day ? 72 Hour Antibiotic History Active Antibiotics Calendar Day Last Administered First Administered Rifaximin??550 mg, By Mouth, 2 times a day ?3 08/05/2023 08:04 08/03/2023 00:16 Ceftriaxone??2 Gm, 100 mL/hr, IVPB, Every 24 hours ?2 08/05/2023 08:03 08/04/2023 09:10 ? Stopped Antibiotics Stop Date/Time Last Administered First Administered Vancomycin??1,250 mg, 166.67 mL/hr, IVPB, Every 24 hours 08/04/2023 07:13 08/03/2023 22:51 08/02/2023 22:30 Piperacillin-Tazobactam??3.375 Gm, IVPB, Once 08/02/2023 10:33 08/02/2023 10:32 08/02/2023 10:32 ? Results Recent Labs BACTERIOLOGY Blood Culture Results Preliminary report ()?? 08/03/2023 11:17 Blood Culture Isolate 1 Comment ()?? 08/03/2023 11:17 Blood Cult 2 Results Preliminary report ()?? 08/03/2023 11:17 Blood Culture 2 Isolate 1 Comment ()?? 08/03/2023 11:17 ?? BLOOD COUNT & DIFF WBC 8.0 k/mm3 ()?? 08/05/2023 05:40 RBC 2.76 m/mm3 (Low)?? 08/05/2023 05:40 Hgb 7.8 Gm/dL (Low)?? 08/05/2023 05:40 Hct 23.2 % (Low)?? 08/05/2023 05:40 MCV 84.1 femtoliters ()?? 08/05/2023 05:40 MCH 28.3 pg ()?? 08/05/2023 05:40 MCHC 33.6 g/dL ()?? 08/05/2023 05:40 Platelet Count 140 k/mm3 (Low)?? 08/05/2023 05:40 RDW-SD 53.9 femtoliters (High)?? 08/05/2023 05:40 MPV 12.2 femtoliters ()?? 08/05/2023 05:40 Nucleated RBC (Automated) 0.0 #/100 WBC'S ()?? 08/05/2023 05:40 Abs. NRBC 0.0 k/mm3 ()?? 08/05/2023 05:40 Abs. Neut 5.5 k/mm3 ()?? 08/05/2023 05:40 Abs. Lymph 1.3 k/mm3 ()?? 08/05/2023 05:40 Abs. [place] 0.7 k/mm3 ()?? 08/05/2023 05:40 Abs. Eo 0.4 k/mm3 ()?? 08/05/2023 05:40 Abs. Baso 0.0 k/mm3 ()?? 08/05/2023 05:40 Neut % 69.5 % ()?? 08/05/2023 05:40 Lymph % 16.2 % ()?? 08/05/2023 05:40 [place] % 8.8 % ()?? 08/05/2023 05:40 Eos % 4.4 % ()?? 08/05/2023 05:40 Baso % 0.5 % ()?? 08/05/2023 05:40 Imm Gran 0.6 % ()?? 08/05/2023 05:40 Abs. Imm Gran 0.1 k/mm3 ()?? 08/05/2023 05:40 ?? CHEM GENERAL Sodium 138 mmol/L ()?? 08/05/2023 05:40 Potassium 5.0 mmol/L ()?? 08/05/2023 05:40 Chloride 110 mmol/L (High)?? 08/05/2023 05:40 Bicarbonate Level 21 mmol/L (Low)?? 08/05/2023 05:40 Anion Gap 7 ()?? 08/05/2023 05:40 Glucose Level 86 mg/dL ()?? 08/05/2023 05:40 BUN 24 mg/dL (High)?? 08/05/2023 05:40 Creatinine-Blood 1.1 mg/dL ()?? 08/05/2023 05:40 Estimated GFR Creatinine 77 ML/MIN/1.73 M2 ()?? 08/05/2023 05:40 Calcium 8.0 mg/dL (Low)?? 08/05/2023 05:40 Magnesium 2.1 mg/dL ()?? 08/05/2023 05:40 ?? URINE OTHER Est Creatinine Clearance 84.37 mL/min ()?? 08/05/2023 06:54 ? Urinalysis Est Creatinine Clearance: 84.37 mL/min (06:54) ?? Blood Gases?? No qualifying data available. ? Assessment/Plan Chief Complaint: [place] [facility] [place], pt has a hx of liver disease, CHF, fibrosis, and anemia. Per patient's family patient has a hx of high ammonia levels and based on presentation he is presenting similarly ?? Diagnoses AMS (altered mental status) ??(R41.82) Alcohol use disorder in remission ??(F10.91) Anemia ??(D64.9) Cellulitis ??(L03.90) Cirrhosis of liver ??(K74.60) Elevated troponin ??(R79.89) Gram-positive bacteremia ??(R78.81) Hepatic encephalopathy ??(K76.82) Sepsis ??(A41.9) ?? 57-year-old male with past medical history of??alcoholic cirrhosis??and anemia??presented to the emergency room??after a shaking episode at home??and malaise and currently being managed for??gram-positive streptococcal bacteremia possibly from RLQ abdominal wall cellulitis??as well as??acute on chronic anemia. ?? Abdominal Wall cellulitis Gram-positive bacteremia (R78.81):??. Sepsis (A41.9):??. Cellulitis (L03.90):? As noted above he presents with??significant fever, chills, transient hypotension concerning for sepsis. leukocytosis resolved. Possible right lower quadrant abdominal??cellulitis??being the source of infection??with blood cultures growing streptococcal agalactiae CT A/P showing anasarca and continues to have soft BP which might be his baseline Echo shows Normal LV systolic function. Ejection fraction is 60-65%. There are ??no regional wall motion abnormalities. There is septal bounce.?Normal diastolic function.?The aortic valve is poorly visualized. The aortic valve is probably??trileaflet. ID on board- appreciate recs Midodrine started on admissions and will continue for now Continue IV??Ceftriaxone F/u??repeat blood cultures ?? Elevated troponin (R79.89):? Elevated troponin with no active chest pain Nonischemic EKG Likely??demand ischemia in the setting of sepsis/hypotension Echo- no WMA ?? Hepatic encephalopathy (K76.82):? Currently alert and oriented but not passing stool Continue lactulose and rifaximin 1 dose Lactulose suppository/enema ?? Cirrhosis of liver (K74.60):??MELD 17?? Appears to be fluid overloaded with anasarca as per CT A/p Continue rifaximin, lactulose Restarted HM :Lasix 20 mg??with close eye on BP ? Anemia (D64.9):? Hg appears stable No active visible bleeding Monitor Hg Transfuse for hemoglobin less than 7 ?? Acute kidney injury Resolved ?? Alcohol use disorder in remission (F10.91):? Denies active alcohol use x2-3 months Add thiamine ?? VTE Prophylaxis:? Pneumatic compression boots ?VTE Prophylaxis Assessment:??VTE Prophylaxis Ordered ?? Code Status:? Full code Confirmed with patient at bedside ?Order Code Status:??Code Status Ordered ? Note * Marleni Sanchez RN: PERFORM Event Display: Discharge/Transfer Note Hospital Authored Date: Nursing Discharge Note Entered On: 08/06/2023 12:27 EDT Performed On: 08/06/2023 12:11 EDT by Marleni Sanchez RN Nursing Discharge Note 2 Discharge Time : 08/06/2023 12:11 EDT Discharge Level of Care at Discharge : Homehealth/VNA Discharge VNA/Hospice/Home Care(v001) : [facility] Patient Left Unit Via : Wheelchair Patient Accompanied Off Unit with : Responsible adult DC Instructions Provided & Signed by Pt : Yes Patient Understands D/C Instructions : Yes Patient Instructions Discharge Signed : Yes Did Pt have Specialty Bed or Wound Vac : No Daniel WASSERMAN, Marleni - 08/06/2023 12:26 EDT * Yoel ODOM, [facility]: PERFORM Event Display: Discharge/Transfer Note Hospital Authored Date: [id number] Patient: ??MARICRUZ ALLEN ? Age:??57 Years?Sex:??Male?:??1965?? Patient Information Discharge Location: W4 Primary Care Physician: Not on Staff, PCP Admit Date/Time: 08/02/23 13:20 Discharge Disposition Discharge Disposition: Home with Home Health Discharge Diagnosis AMS (altered mental status) (R41.82) Cirrhosis of liver (K74.60) Hepatic encephalopathy (K76.82) Cellulitis (L03.90) Gram-positive bacteremia (R78.81) Sepsis (A41.9) Elevated troponin (R79.89) Anemia (D64.9) Alcohol use disorder in remission (F10.91) _ Discharge Medications Cephalexin (cephalexin monohydrate 500 mg oral capsule)?500?Milligram?By Mouth?Every 6 hours?for 10?Days?Start 08/06 Furosemide (Lasix 20 mg oral tablet)?20?Milligram?1?tablet?By Mouth?Daily HydrOXYzine (HydrOXYzine HCL Tablet)?10?Milligram?By Mouth?4 times a day?as needed?Itch Lactulose (lactulose 10 gm/15 ml oral syrup)?240?Milliliter?160?gram?Rectally?Every 4 hours?as needed?as needed for constipation Midodrine (midodrine 5 mg oral tablet)?5?Milligram?By Mouth?3 times a day Rifaximin (rifAXIMin 550 mg oral tablet)?1?tab(s)?550?Milligram?By Mouth?2 times a day Thiamine (thiamine 100 mg oral tablet)?100?Milligram?1?tablet?By Mouth?Daily?for 7?Days ? Medications Started Cephalexin (cephalexin monohydrate 500 mg oral capsule)?500?Milligram?By Mouth?Every 6 hours?for 10?Days?Start 08/06 Midodrine (midodrine 5 mg oral tablet)?5?Milligram?By Mouth?3 times a day Medications Discontinued N/a Doses Changed N/a PCP Follow-Up/Heads-Up F/u on hospital course Objective Assessment and Plan 57-year-old male with past medical history of??alcoholic cirrhosis??and anemia??presented to the emergency room??after a shaking episode at home??and malaise and was managed for??gram-positive streptococcal bacteremia (streptococcal agalactiae)??possibly from RLQ abdominal wall cellulitis??as well as??acute on chronic anemia. During his stay his cellulitis improved with IV ceftriaxone and was evaluated by ID. Hg has been stable without overt bleeding and low levels on discharge appears to be hemodilution. Patient will be discharged on Midodrine and Keflex. ?? Abdominal Wall cellulitis Gram-positive bacteremia (R78.81):??. Sepsis (A41.9):??. Cellulitis (L03.90):? Presented with??significant fever, chills, transient hypotension concerning for sepsis. Examination showing right lower quadrant abdominal??cellulitis??being the source of infection??withblood cultures growing streptococcal agalactiae. Repeat prelim cultures negative. CT A/P showing anasarca without other acute issues. Echo shows Normal LV systolic function. Ejection fraction is 60-65%. There are ??no regional wall motion abnormalities. There is septal bounce.?Normal diastolic function.?The aortic valve is poorly visualized. The aortic valve is probably??trileaflet. ID on board- appreciate recs and received IV ceftriaxone as inpatient and transitioned to Keflex ond/c. Cellulitis appears to have resolved on discharge and patient hemodynamically stable. Continue Midodrine TID Ordered Keflex 500 mg q6 hrs x 10 days F/u with PCP ?? Elevated troponin (R79.89):? On admission, Elevated troponin with no active chest pain Nonischemic EKG Likely??demand ischemia in the setting of sepsis/hypotension Echo- no WMA ?? Hepatic encephalopathy (K76.82):? Currently alert and oriented but not passing stool Continue lactulose and rifaximin 1 dose Lactulose suppository/enema ?? Cirrhosis of liver (K74.60):??MELD 17?? Continue rifaximin, lactulose and lasix Started Midodrine 5 mg TID on d/c for soft SBPs 80s-90s??possibly from cirrhosis ? Anemia (D64.9):? No active visible bleeding Hg slightly low 7.1 on discharge but appears to be secondary to hemodilution with drop in all cell lines. Low concerns for active bleeding F/u with PCP ?? Acute kidney injury Resolved ?? Alcohol use disorder in remission (F10.91):? Denies active alcohol use x2-3 months ? Measurements?? Height: 184 cm (08/06/23) Weight: 95 kg (08/06/23) Dry Weight: 95 kg (08/02/23) Body Mass Index:??28.06 kg/m2??High (08/02/23) ? Vital Signs?? Temperature: 98 DegF (08/06/23 08:01:00) Temperature Route: Oral (08/06/23 08:01:00) Pulse Rate: 66 bpm (08/06/23 08:28:00) Respiratory Rate: 18 br/min (08/06/23 08:01:00) Systolic Blood Pressure: 99 mm Hg (08/06/23 08:28:00) Diastolic Blood Pressure: 60 mm Hg (08/06/23 08:28:00) Blood pressure sites: Arm, left (08/06/23 08:01:00) Mean Arterial Pressure: 73 mm Hg (08/06/23 08:01:00) Pulse Pressure: 39 mm Hg (08/06/23 08:01:00) Oxygen Saturation: 99 % (08/06/23 08:01:00) Mode of Delivery (Oxygen): Room air (08/06/23 08:01:00) Early Warning Score: 5 (08/06/23 08:29:44) ? . Physical Exam ?Constitutional: Alert, in no distress. ?Mental Status: Oriented to person, place and time. ?Head: Normocephalic. ?Eyes: Pupils are equal, round and reactive to light. Extraocular muscles intact. Icterus present ?Ear, Nose and Throat: Oropharynx clear, mucous membranes moist.?Neck: Supple, Full range of motion. ?Respiratory: Clear to auscultation.Mild wheezing noted. On RA. ?Cardiovascular: S1 S2 regular. No murmurs, rubs or gallops. ?Gastrointestinal: Abdomen soft, non-tender, Normal bowel sounds.?No fluctuation. RLQ skin erythema and induration-??Resolved ?Neurologic: Cranial nerves II-XII grossly intact. No focal neurological deficits. Flexor plantar response. Moves all extremities spontaneously. Sensation intact bilaterally. ?Musculoskeletal: No cyanosis or clubbing. No gross deformities. ??Decreased range of motionright shoulder??with 2+ pitting edema right leg. ?Psychiatric: Normal mood and affect _ Consultants ID Pending Results Add On Lab Order ordered on 08/03/2023 CBC w/ Differential ordered on 08/03/2023 Lactic Acid Level ordered on 08/02/2023 Follow-Up Appointments Added Follow Up ?Time Frame ?Comments Not on Staff, PCP Patient Instructions You were admitted for chills and found to have??streptococcal agalactiae growing in one of your blood culture. You were seen by Infectious disease and most likely source of infection was due to your cellulitis of your abdominal skin. You underwent further investigations but no other source was found and were treated with IV ceftriaxone in the hospital. - Please start taking Keflex 500 mg every 6 hours for 10 days starting 08/06 - Please start taking Midodrine 5 mg every 8 hours to maintain your BP in the normal range and stoptaking it if BP >140s, please discuss with your PCP - Please set up appointment with your PCP and GI doctors No other changes were made to your medications Home Health Face to Face *Denotes mandatory koo ?? *I certify that this patient is under my care and that I or an allowed non- physician working with me had a face to face encounter with the patient on this date:??08/06/2023 10:18 ?? *The encounter with the patient was in whole, or in part, for the following medical condition, which is the primary diagnosis(es) for home health care:??AMS (altered mental status) (R41.82) Cirrhosis of liver (K74.60) Hepatic encephalopathy (K76.82) Cellulitis (L03.90) Gram-positive bacteremia (R78.81) Sepsis (A41.9) Elevated troponin (R79.89) Anemia (D64.9) Alcohol use disorder in remission (F10.91) ?? *Select the indications for the discipline/s that are being arranged for this patient. Nursing (select all that apply): [_] None [X] Medication management (reconciliation, teaching)?? [X] Chronic disease management?? [_] Wound care and treatment?? [_] Home safety evaluation [_] Administer SQ/IM/IV medications?? [_] Cath care?? [_] Drain care?? [_] Trach or GT care?? Other _ Occupation Therapy (select all that apply): [_] None [_] ADL Management [_] Fall prevention training [_] Energy conservation [_] Cognitive training Other _ Physical Therapy (select all that apply): [_] None [X] Functional mobility training [X] Home exercise program to strengthen [_] Increase ROM?? [X] Falls prevention training [_] Home maintenance program for chronic disease Other _ Speech Therapy (select all that apply): [_] None [_] Swallow evaluation and training [_] Speech and language training [_] Cognitive training to process, organize, and/or recall information Other _ ? *Homebound due to (select all that apply): [X] Inability to leave home without assistance/supervision [X] Inability to ambulate without assistance [_] Pain [_] Decreased strength and endurance [_] Unsteady gait [_] Severe SOB and fatigue [_] Impaired transfers [_] Inability to negotiate stairs [_] Limited weight bearing [_] Mental status change? *Physician Signature: _Schuyler Diallo ?? *By signing this, I certify that I have personally evaluated the patient and agree with the findings and recommendations as documented above. ? Results Discharge Labs BACTERIOLOGY Blood Culture Results Preliminary report ()?? 08/04/2023 08:13 Blood Culture Specimen Source BLOOD ()?? 08/04/2023 08:13 Blood Culture Isolate 1 Comment ()?? 08/04/2023 08:13 Blood Cult Antimicrobial Susceptibility Comment ()?? 08/02/2023 09:05 Reflex to Rapid ID, YURIY Comment ()?? 08/02/2023 09:05 Blood Cult 2 Results Preliminary report ()?? 08/04/2023 08:13 Blood Culture 2 Specimen Source BLOOD ()?? 08/04/2023 08:13 Blood Culture 2 Isolate 1 Comment ()?? 08/04/2023 08:13 Blood Culture 2 Susceptibility Comment ()?? 08/02/2023 09:15 A calcoaceticus-baumannii comp,Culture 1 Not Detected ()?? 08/02/2023 09:05 Bacteroides fragilis, Culture 1 Not Detected ()?? 08/02/2023 09:05 Enterobacterales, Culture 1 Not Detected ()?? 08/02/2023 09:05 Enterobacter cloacae complex, Culture 1 Not Detected ()?? 08/02/2023 09:05 Escherichia coli, Culture 1 Not Detected ()?? 08/02/2023 09:05 Klebsiella aerogenes, Culture 1 Not Detected ()?? 08/02/2023 09:05 Klebsiella oxytoca, Culture 1 Not Detected ()?? 08/02/2023 09:05 Klebsiella pneumoniae group, Culture 1 Not Detected ()?? 08/02/2023 09:05 Proteus spp., Culture 1 Not Detected ()?? 08/02/2023 09:05 Salmonella spp., Culture 1 Not Detected ()?? 08/02/2023 09:05 Serratia marcescens, Culture 1 Not Detected ()?? 08/02/2023 09:05 Haemophilus influenzae, Culture 1 Not Detected ()?? 08/02/2023 09:05 Neisseria meningitidis, Culture 1 Not Detected ()?? 08/02/2023 09:05 Pseudomonas aeruginosa, Culture 1 Not Detected ()?? 08/02/2023 09:05 Stenotrophomonas maltophilia, Culture 1 Not Detected ()?? 08/02/2023 09:05 Enterococcus faecalis, Culture 1 Not Detected ()?? 08/02/2023 09:05 Enterococcus faecium, Culture 1 Not Detected ()?? 08/02/2023 09:05 Listeria monocytogenes, Culture 1 Not Detected ()?? 08/02/2023 09:05 Staphylococcus spp., Culture 1 Not Detected ()?? 08/02/2023 09:05 Staphylococcus aureus, Culture 1 Not Detected ()?? 08/02/2023 09:05 Staphylococcus epidermidis, Culture 1 Not Detected ()?? 08/02/2023 09:05 Staphylococcus lugdunensis, Culture 1 Not Detected ()?? 08/02/2023 09:05 Streptococcus spp., Culture 1 DETECTED (Abnormal)?? 08/02/2023 09:05 Streptococcus agalactiae, Culture 1 DETECTED (Abnormal)?? 08/02/2023 09:05 Streptococcus pneumoniae, Culture 1 Not Detected ()?? 08/02/2023 09:05 Streptococcus pyogenes, Culture 1 Not Detected ()?? 08/02/2023 09:05 Little albicans, Culture 1 Not Detected ()?? 08/02/2023 09:05 Little auris, Culture 1 Not Detected ()?? 08/02/2023 09:05 Little glabrata, Culture 1 Not Detected ()?? 08/02/2023 09:05 Little krusei, Culture 1 Not Detected ()?? 08/02/2023 09:05 Little parapsilosis, Culture 1 Not Detected ()?? 08/02/2023 09:05 Little tropicalis, Culture 1 Not Detected ()?? 08/02/2023 09:05 Cryptococcus neoformans/gattii,Culture 1 Not Detected ()?? 08/02/2023 09:05 IMP (Carbapenemases), Culture 1 Not applicable ()?? 08/02/2023 09:05 KPC (Carbapenemases), Culture 1 Not applicable ()?? 08/02/2023 09:05 OXA-48-like (Carbapenemases), Culture 1 Not applicable ()?? 08/02/2023 09:05 NDM (Carbapenemases), Culture 1 Not applicable ()?? 08/02/2023 09:05 VIM (Carbapenemases), Culture 1 Not applicable ()?? 08/02/2023 09:05 mcr-1 (Colistin Resistance), Culture 1 Not applicable ()?? 08/02/2023 09:05 CTX-M (ESBL), Culture 1 Not applicable ()?? 08/02/2023 09:05 mecA/C(Methicillin Resistance),Culture 1 Not applicable ()?? 08/02/2023 09:05 mecA/C and MREJ (MRSA), Culture 1 Not applicable ()?? 08/02/2023 09:05 Dash/B (Vancomycin Resistance),Culture 1 Not applicable ()?? 08/02/2023 09:05 ?? BLOOD COUNT & DIFF WBC 5.9 k/mm3 ()?? 08/06/2023 02:05 RBC 2.52 m/mm3 (Low)?? 08/06/2023 02:05 Hgb 7.1 Gm/dL (Low)?? 08/06/2023 02:05 Hct 21.0 % (Low)?? 08/06/2023 02:05 MCV 83.3 femtoliters ()?? 08/06/2023 02:05 MCH 28.2 pg ()?? 08/06/2023 02:05 MCHC 33.8 g/dL ()?? 08/06/2023 02:05 Platelet Count 104 k/mm3 (Low)?? 08/06/2023 02:05 RDW-SD 53.7 femtoliters (High)?? 08/06/2023 02:05 MPV NOT MEASURED femtoliters ()?? 08/06/2023 02:05 Nucleated RBC (Automated) 0.0 #/100 WBC'S ()?? 08/06/2023 02:05 Abs. NRBC 0.0 k/mm3 ()?? 08/06/2023 02:05 Abs. Neut 3.5 k/mm3 ()?? 08/06/2023 02:05 Abs. Lymph 1.3 k/mm3 ()?? 08/06/2023 02:05 Abs. [place] 0.6 k/mm3 ()?? 08/06/2023 02:05 Abs. Eo 0.3 k/mm3 ()?? 08/06/2023 02:05 Abs. Baso 0.0 k/mm3 ()?? 08/06/2023 02:05 Neut % 59.7 % ()?? 08/06/2023 02:05 Lymph % 22.7 % ()?? 08/06/2023 02:05 [place] % 10.8 % (High)?? 08/06/2023 02:05 Eos % 5.8 % ()?? 08/06/2023 02:05 Baso % 0.7 % ()?? 08/06/2023 02:05 Band % 15.5 % (High)?? 08/03/2023 01:05 RBC Morphology MODERATE ()?? 08/03/2023 01:05 WBC Morphology FEW ()?? 08/03/2023 01:05 Platelet Estimate DECREASED ()?? 08/03/2023 01:05 Imm Gran 0.3 % ()?? 08/06/2023 02:05 Abs. Imm Gran 0.0 k/mm3 ()?? 08/06/2023 02:05 ?? CARDIAC Nt-Probnp 768 pg/mL (High)?? 08/02/2023 09:05 High Sensitivity Troponin (HSTnT) 57 ng/L (Critical)?? 08/03/2023 01:05 ?? CHEM GENERAL Sodium 135 mmol/L ()?? 08/06/2023 02:05 Potassium 4.9 mmol/L ()?? 08/06/2023 02:05 Chloride 108 mmol/L (High)?? 08/06/2023 02:05 Bicarbonate Level 22 mmol/L ()?? 08/06/2023 02:05 Anion Gap 5 ()?? 08/06/2023 02:05 Glucose Level 84 mg/dL ()?? 08/06/2023 02:05 BUN 20 mg/dL ()?? 08/06/2023 02:05 Creatinine-Blood 1.1 mg/dL ()?? 08/06/2023 02:05 Estimated GFR Creatinine 78 ML/MIN/1.73 M2 ()?? 08/06/2023 02:05 Calcium 7.7 mg/dL (Low)?? 08/06/2023 02:05 Magnesium 2.1 mg/dL ()?? 08/06/2023 02:05 Protein, Total 7.1 Gm/dL ()?? 08/02/2023 09:05 Albumin 3.2 Gm/dL (Low)?? 08/02/2023 09:05 AG Ratio 0.8 ()?? 08/02/2023 09:05 Alkaline Phosphatase 137 units/L (High)?? 08/02/2023 09:05 Lipase 71 units/L (High)?? 08/02/2023 09:05 AST (SGOT) 65 units/L (High)?? 08/03/2023 01:05 ALT (SGPT) 32 units/L ()?? 08/03/2023 01:05 Bilirubin, Total 1.5 mg/dL (High)?? 08/03/2023 01:05 Vitamin B12 Level 1428 pg/mL (High)?? 08/02/2023 09:05 Folic Acid Level 12.2 ng/mL ()?? 08/02/2023 09:05 Lactate 2.2 mmol/L ()?? 08/03/2023 01:05 Iron Level 85 mcg/dL ()?? 08/02/2023 09:05 Iron Binding Capacity, Unsaturated 34 mcg/dL (Low)?? 08/02/2023 09:05 Iron Binding Capacity, Estimated Total 119 mcg/dL (Low)?? 08/02/2023 09:05 % Iron Saturation 71 % (High)?? 08/02/2023 09:05 ?? COAG INR 1.8 (High)?? 08/03/2023 01:05 Protime (PT) 18.6 seconds (High)?? 08/03/2023 01:05 APTT 30.5 seconds ()?? 08/02/2023 09:05 ? HEME OTHER Hold Lavender Top SPECIMEN DISCARDED AFTER 24 HOURS. ()?? 08/03/2023 01:05 ? MISC. CHEMISTRY Ammonia, Venous 115 ??mole/L (High)?? 08/03/2023 01:05 ? SEROLOGY INF DISEASE Anti Hepatitis A IgM NON REACTIVE ()?? 08/03/2023 04:57 Hepatitis B Surface Antigen NON REACTIVE ()?? 08/03/2023 04:57 Hepatitis B Core Ab, IgM NON REACTIVE ()?? 08/03/2023 04:57 Hepatitis C Ab NON REACTIVE ()?? 08/03/2023 04:57 Anti-HBS Quant <3.50 mIU/mL (Low)?? 08/03/2023 04:57 ? UA/URINALYSIS Appear/Color, Urine YELLOW ()?? 08/02/2023 15:20 Specific [place], Urine >1.050 (High)?? 08/02/2023 15:20 pH, Urine 6.0 ()?? 08/02/2023 15:20 Albumin, Urine 1+ (Abnormal)?? 08/02/2023 15:20 Glucose, Urine NEGATIVE ()?? 08/02/2023 15:20 Ketones, Urine TRACE (Abnormal)?? 08/02/2023 15:20 Bilirubin, Urine NEGATIVE ()?? 08/02/2023 15:20 Hemoglobin, Urine NEGATIVE ()?? 08/02/2023 15:20 Nitrite, Urine NEGATIVE ()?? 08/02/2023 15:20 Leukocyte, Urine NEGATIVE ()?? 08/02/2023 15:20 Urobilinogen NORMAL mg/dL ()?? 08/02/2023 15:20 WBC's, Urine NONE SEEN /HPF ()?? 08/02/2023 15:20 RBC's, Urine NONE SEEN /HPF ()?? 08/02/2023 15:20 Bacteria SLIGHT HPF (Abnormal)?? 08/02/2023 15:20 Squamous Epith <1 /HPF ()?? 08/02/2023 15:20 Hold Urine Culture Testing available 48 hours from time of collection. ()?? 08/02/2023 15:20 ?? URINE OTHER Est Creatinine Clearance 84.37 mL/min ()?? 08/05/2023 06:54 ? VIROLOGY Influenza A PCR NEGATIVE ()?? 08/02/2023 19:52 Influenza B PCR NEGATIVE ()?? 08/02/2023 19:52 RSV PCR NEGATIVE ()?? 08/02/2023 19:52 COVID-19 PCR Specimen Source NASAL ()?? 08/02/2023 19:52 COVID-19 PCR Result NEGATIVE ()?? 08/02/2023 19:52 ? 40_ minutes spent on discharge * Marleni Sanchez RN: PERFORM Event Display: Patient Education/Instruction Authored Date: Inpatient Adult Discharge Instructions. [address] [address] Name: MARICRUZ ALLEN : 1965?? Visit: 08/02/2023 13:20?? Current Date: 08/06/2023 10:31 ?? Account: [id number]?? Inpatient Adult Discharge Instructions We would like to thank you for allowing us to assist you with your healthcare needs. The following includes patient education materials and information regarding your injury/illness. Our entire staffstrives to provide an excellent experience for our patients and their families. PLEASE ENSURE YOU FOLLOW-UP PER THE INSTRUCTIONS BELOW! ?? YOUR OPINION IS IMPORTANT TO US! Please complete the survey you may receive by mail or email. Your feedback will be used to make improvements to the healthcare experiences of our patients and their families. Surveys are administered by [employer] ?? If further treatment with your primary care physician or another doctor is recommended, it is important for you to keep the appointment. Call your primary care physician or return to the Emergency Department immediately if your condition worsens, fails to improve, or new symptoms develop. If you need to find a doctor, you can call [facility] [employer] Link for a referral at [phone] or toll free at [phone] or log in to [email or web address].. ?? [facility], in keeping with [facility] guidance, no longer requires face masks for staff, patientsor visitors in most situations. Similiar to time spent indoors at other locations, there is the chance that you were exposed to repiratory viruses during your time with us (such as flu or COVID-19). If you develop symptoms concerning for a viral respiratory infection, please seek testing (and treatment if indicated) from your medical provider or home test kit. ?? You can view and manage your care through the patient portal or by using a health care kuldeep of your choosing. [employer] is a website that allows you to securely view your medical information including your hospital discharge summary, office visit summaries, medications and follow-up visits. You can also request appointments, renew medications, and request access to your medical information using a health care kuldeep of your choosing, or just ask a question. You can enroll at [email or web address] or register during your next office visit. You have been discharged from [facility], Patient Care Unit: W4??. If you have any questions regarding these instructions, including results of studies pending, afteryou leave, please call us and we will be happy to assist you 08/11. [facility] Your Care Team Attending Physician Schuyler Diallo MD?? Consulting Providers Schuyler Diallo MD?? Discharging Providers Schuyler Diallo MD Reason for Your [place] [facility] [place], pt has a hx of liver disease, CHF, fibrosis, and anemia. Per patient's family patient has a hx of high ammonia levels and based on presentation he is presenting similarly?? Your Diagnosis Alcohol use disorder in remission Anemia Cellulitis Cirrhosis of liver Elevated troponin Gram-positive bacteremia Hepatic encephalopathy Sepsis Tests Performed Below is a partial list of the tests performed during your hospitalization. You may have had other tests and procedures not included in this list. Please discuss all test results with your provider. ALT Ammonia Venous Anti-HBS Quant AST Basic Metabolic Panel Blood Culture Blood Culture #2 Blood Culture 2 Results Blood Culture Rapid ID, YURIY Blood Culture Result BNP BUN CBC w/ Differential Comprehensive Metabolic Panel COVID-19, RSV, and Flu A/B, Rapid PCR Creatinine Electrolytes FOLIC ACID Glucose Level Hepatitis A Ab IgM Hepatitis B Core Ab IgM Hepatitis B Surface Antigen Hepatitis C Ab High??Sensitivity??Troponin T HOLD LAVENDER TUBE INR IRON & TIBC Lactic Acid Level Lipase Magnesium Level PTT Total Bilirubin Troponin T, High Sensitivity Urinalysis w/hold for Urine Culture VITAMIN B12 CT Abd/Pelvis W/ IV Contrast Only US Doppler Ext Lower Venous Right XR Chest 2 Views Frontal and Lat Add On Lab Order?? CBC w/ Differential?? Lactic Acid Level?? Primary Care Provider Not on Staff, PCP?? Advance Directive Health Care Proxy on File Yes - Health Care Proxy Discharge Vitals Temperature: 98 DegF Height: 184 cm Pulse Rate: 66 bpm Weight: 95 kg Respiratory Rate: 19 br/min Body Mass Index:??28.06 kg/m2??High Systolic Blood Pressure: 99 mm Hg Body surface area: 2.2 Diastolic Blood Pressure: 60 mm Hg ?? Oxygen Saturation: 99 % ?? Studies Pending All studies ordered during this hospital stay have been completed unless listed below. Please discuss all pending results with your provider listed above in these instructions. ?? Add On Lab Order?? CBC w/ Differential?? Lactic Acid Level?? What to do next Instructions From Your Doctor You were admitted for chills and found to have??streptococcal agalactiae growing in one of your blood culture. You were seen by Infectious disease and most likely source of infection was due to your cellulitis of your abdominal skin. You underwent further investigations but no other source was found and were treated with IV ceftriaxone in the hospital. - Please start taking Keflex 500 mg every 6 hours for 10 days starting 08/06 - Please start taking Midodrine 5 mg every 8 hours to maintain your BP in the normal range and stoptaking it if BP >140s, please discuss with your PCP - Please set up appointment with your PCP and GI doctors No other changes were made to your medications ?? Orders? 08/06/23 10:18:00 EDT?? You Need to Schedule the Following Appointments Follow Up with??Not on Staff, PCP Discharge Medications MARICRUZ ALLEN :1965 Visit Date:08/02/2023 Medications: Please continue your medications until treatment is completed or stopped by your provider. Medications not listed below should be discontinued. Discuss any questions related to medications with your provider. What How Much When Instructions Next Dose New Cephalexin (cephalexin monohydrate 500 mg oral capsule) 500 Milligram Oral Every 6 hours Duration: 10 Days Start ?? Pickup at [facility] [phone] Today at 6PM New Midodrine (midodrine 5 mg oral tablet) 5 Milligram Oral 3 times a day Refills: 2 Pickup at [facility] [phone] Today at 3PM Changed Lactulose (lactulose 10 gm/ 15 ml oral syrup) 240 Milliliter Per rectum Every 4 hours as needed for as needed for constipation Pickup at [place] [phone] Today at 3PM Unchanged Furosemide (Lasix 20 mg oral tablet) 1 tab(s) Oral Daily Tomorrow AM Unchanged HydrOXYzine (HydrOXYzine HCL Tablet) 10 Milligram Oral 4 times a day as needed for Itch As needed (Not Given) Unchanged Multivitamin Daily Tomorrow AM Unchanged Rifaximin (rifAXIMin 550 mg oral tablet) 1 tab(s) Oral Twice a day Today at 9PM Unchanged Thiamine (thiamine 100 mg oral tablet) 1 tab(s) Oral Daily Duration: 7 Days Tomorrow AM Pharmacy Information [facility] [id number]: [address], [place] [phone] Prescription Given During Visit Cephalexin (cephalexin monohydrate 500 mg oral capsule) - 500 mg, By Mouth, Every 6 hours, # 40 capsule, 0 Refills, Start 08/06, [facility] [id number], [address] [place] [address] [phone]?? Lactulose (lactulose 10 gm/15 ml oral syrup) - 240 mL = 160 Gm, Rectally, Every 4 hours, # 150 mL, 2 Refills, [facility] [id number], [address] [place] [address] [phone]?? Midodrine (midodrine 5 mg oral tablet) - 5 mg, By Mouth, 3 times a day, # 90 tablet, 2 Refills, [facility] [place], [place] - [id number], [address] [place] [address] [phone]?? Laboratory Results Below is a partial list of the most recent Laboratory test results done prior to this discharge. You may have had other tests and procedures not included in this list. Please discuss all test resultswith your provider. Est Creatinine Clearance - 84.37 mL/min (08/05/2023) ALT (08/03/2023) ???ALT (SGPT) - 32 units/L Ammonia Venous (08/03/2023) ???Ammonia, Venous - 115 ??mole/L Anti-HBS Quant (08/03/2023) ? ?Anti-HBS Quant - <3.50 mIU/mL AST (08/03/2023) ???AST (SGOT) - 65 units/L Basic Metabolic Panel (08/06/2023) ???Sodium - 135 mmol/L???Potassium - 4.9 mmol/L???Chloride - 108 mmol/L???Bicarbonate Level - 22 mmol/L???Anion Gap - 5???Glucose Level - 84 mg/dL???BUN - 20 mg/dL???Creatinine-Blood - 1.1 mg/dL???Estimated GFR Creatinine - 78 ML/MIN/1.73 M2???Calcium - 7.7 mg/dL Blood Culture (08/04/2023) ???Blood Culture Results - Preliminary report???Blood Culture Specimen Source - BLOOD Blood Culture #2 (08/04/2023) ???Blood Cult 2 Results - Preliminary report???Blood Culture 2 Specimen Source - BLOOD Blood Culture 2 Results (08/04/2023) ???Blood Culture 2 Isolate 1 - Comment Blood Culture Rapid ID, YURIY (08/02/2023) ???A calcoaceticus-baumannii comp,Culture 1 - Not Detected???Bacteroides fragilis, Culture 1 - Not Detected???Enterobacterales, Culture 1 - Not Detected???Enterobacter cloacae complex, Culture 1 - Not Detected???Escherichia coli, Culture 1 - Not Detected???Klebsiella aerogenes, Culture 1 - Not Detec sourav???Klebsiella oxytoca, Culture 1 - Not Detected???Klebsiella pneumoniae group, Culture 1 - Not Detected???Proteus spp., Culture 1 - Not Detected???Salmonella spp., Culture 1 - Not Detected???Serratia marcescens, Culture 1 - Not Detected???Haemophilus influenzae, Culture 1 - Not Detected???Neisseria meningitidis, Culture 1 - Not Detected???Pseudomonas aeruginosa, Culture 1 - Not Detected???Stenotrophomonas maltophilia, Culture 1 - Not Detected???Enterococcus faecalis, Culture 1 - Not Detected???Enterococcus faecium, Culture 1 - Not Detected???Listeria monocytogenes, Culture 1 - Not Detected???Staphylococcus spp., Culture 1 - Not Detected???Staphylococcus aureus, Culture 1 - Not Detected???Staphylococcus epidermidis, Culture 1 - Not Detected???Staphylococcus lugdunensis, Culture 1 - Not Detected???Streptococcus spp., Culture 1 - DETECTED???Streptococcus agalactiae, Culture 1 - DETECTED? ??Streptococcus pneumoniae, Culture 1 - Not Detected???Streptococcus pyogenes, Culture 1 - Not Detected???Little albicans, Culture 1 - Not Detected???Little auris, Culture 1 - Not Detected???Little glabrata, Culture 1 - Not Detected???Little krusei, Culture 1 - Not Detected???Little parapsilosis, Culture 1 - Not Detected???Little tropicalis, Culture 1 - Not Detected???Cryptococcus neoformans/gattii,Culture 1 - Not Detected???IMP (Carbapenemases), Culture 1 - Not applicable???KPC (Carbapenemases), Culture 1 - Not applicable???OXA-48-like (Carbapenemases), Culture 1 - Not applicable???NDM (Carbapenemases), Culture 1 - Not applicable???VIM (Carbapenemases), Culture 1 - Not applicable???mcr-1 (Colistin Resistance), Culture 1 - Not applicable???CTX- M (ESBL), Culture 1 - Not applicable???mecA/C(Methicillin Resistance),Culture 1 - Not applicable???mecA/C and MREJ (MRSA), Culture 1 - Not applicable???Dash/B (Vancomycin Resistance),Culture 1 - Not applicable Blood Culture Result (08/04/2023) ???Blood Culture Isolate 1 - Comment BNP (08/02/2023) ???Nt-Probnp - 768 pg/mL BUN (08/03/2023) ???BUN - 23 mg/dL CBC w/ Differential (08/06/2023) ???WBC - 5.9 k/mm3???RBC - 2.52 m/mm3???Hgb - 7.1 Gm/dL???Hct - 21.0 %???MCV - 83.3 femtoliters???MCH - 28.2 pg???MCHC - 33.8 g/dL???Platelet Count - 104 k/mm3???RDW-SD - 53.7 femtoliters???MPV - NOTMEASURED???Nucleated RBC (Automated) - 0.0 #/100 WBC'S???Abs. NRBC - 0.0 k/mm3???Abs. Neut - 3.5 k/m m3???Abs. Lymph - 1.3 k/mm3???Abs. [place] - 0.6 k/mm3???Abs. Eo - 0.3 k/mm3???Abs. Baso - 0.0 k/mm3???Neut % - 59.7 %???Lymph % - 22.7 %???[place] % - 10.8 %???Eos % - 5.8 %???Baso % - 0.7 %???Imm Gran - 0.3 %???Abs. Imm Gran - 0.0 k/mm3 Comprehensive Metabolic Panel (08/02/2023) ???Sodium - 138 mmol/L???Potassium - 4.4 mmol/L???Chloride - 109 mmol/L???Bicarbonate Level - 20 mmol/L???Anion Gap - 9???Glucose Level - 88 mg/dL???BUN - 15 mg/dL???Creatinine-Blood - 0.9 mg/dL???Estimated GFR Creatinine - 101 ML/MIN/1.73 M2???Calcium - 8.2 mg/dL???Protein, Total - 7.1 Gm/dL???[place]bu min - 3.2 Gm/dL???AG Ratio - 0.8???Alkaline Phosphatase - 137 units/L???AST (SGOT) - 52 units/L???ALT (SGPT) - 30 units/L???Bilirubin, Total - 1.9 mg/dL COVID-19, RSV, and Flu A/B, Rapid PCR (08/02/2023) ???Influenza A PCR - NEGATIVE???Influenza B PCR - NEGATIVE???RSV PCR - NEGATIVE???COVID-19 PCR Specimen Source - NASAL???COVID-19 PCR Result - NEGATIVE Creatinine (08/03/2023) ???Creatinine-Blood - 1.3 mg/dL???Estimated GFR Creatinine - 65 ML/MIN/1.73 M2 Electrolytes (08/03/2023) ???Sodium - 138 mmol/L???Potassium - 4.0 mmol/L???Chloride - 111 mmol/L???Bicarbonate Level - 19 mmol/L???Anion Gap - 8 FOLIC ACID (08/02/2023) ???Folic Acid Level - 12.2 ng/mL Glucose Level (08/03/2023) ???Glucose Level - 88 mg/dL Hepatitis A Ab IgM (08/03/2023) ???Anti Hepatitis A IgM - NON REACTIVE Hepatitis B Core Ab IgM (08/03/2023) ???Hepatitis B Core Ab, IgM - NON REACTIVE Hepatitis B Surface Antigen (08/03/2023) ???Hepatitis B Surface Antigen - NON REACTIVE Hepatitis C Ab (08/03/2023) ???Hepatitis C Ab - NON REACTIVE High??Sensitivity??Troponin T (08/02/2023) ???High Sensitivity Troponin (HSTnT) - 74 ng/L HOLD LAVENDER TUBE (08/03/2023) ???Hold Lavender Top - SPECIMEN DISCARDED AFTER 24 HOURS. INR (08/03/2023) ???INR - 1.8???Protime (PT) - 18.6 seconds IRON & TIBC (08/02/2023) ???Iron Level - 85 mcg/dL???Iron Binding Capacity, Unsaturated - 34 mcg/dL???Iron Binding Capacity,Estimated Total - 119 mcg/dL???% Iron Saturation - 71 % Lactic Acid Level (08/03/2023) ???Lactate - 2.2 mmol/L Lipase (08/02/2023) ???Lipase - 71 units/L Magnesium Level (08/06/2023) ???Magnesium - 2.1 mg/dL PTT (08/02/2023) ???APTT - 30.5 seconds Total Bilirubin (08/03/2023) ???Bilirubin, Total - 1.5 mg/dL Troponin T, High Sensitivity (08/03/2023) ???High Sensitivity Troponin (HSTnT) - 57 ng/L Urinalysis w/hold for Urine Culture (08/02/2023) ? ?Appear/Color, Urine - YELLOW? ?Specific [place], Urine - >1.050? ?pH, Urine - 6.0? ?Albumin, Urine - 1+???Glucose, Urine - NEGATIVE???Ketones, Urine - TRACE???Bilirubin, Urine - NEGATIVE???Hemoglobin, Urine - NEGATIVE???Nitrite, Urine - NEGATIVE???Leukocyte, Urine - NEGATIVE???Urobilinogen - NORMAL? ?WBC's, Urine - NONE SEEN? ?RBC's, Urine - NONE SEEN? ?Bacteria - SLIGHT? ?Squamous Epith - <1 /HPF???Hold Urine Culture - Testing available 48 hours from time of collection. VITAMIN B12 (08/02/2023) ???Vitamin B12 Level - 1428 pg/mL Allergies (NKA means No Known Allergies) NKA Problems No qualifying data available Education Materials Below is the list of Educational Leaflet Providered with your Discharge Instructions. Valuables and Belongings I fully understand and agree that [facility] accepts no responsibility for all my personal property including clothing, toilet articles, radios, jewelry, dentures, hearing aids, rings, money, or any other property that is in my possession or is brought to me after admission. I understand certain valuables may be placed in a hospital safe for a short period of time. I understand that the hospital is not liable for loss or damage due to accident, fire, or other natural occurrence while said property is in the safe. I accept full responsibility for any personal property that I keep with me, and will not hold the hospital responsible in case of loss or disappearance. I acknowledge that i have been encouraged to send valuables and belongings home. ?? Review of Valuable and Belonging List: With family Disposition of Belongings: Sent home with patient/family Possessions released to: Niece Date for Pt to Sign Valuables/Belongings: 08/02/23 22:22:00 ?? Other Discharge Information ? Case Management Discharge Plan?? Discharge Plan?? Discharge Agency Information?? Discharge Level of Care at Discharge: Homehealth/VNA Service Categories #1: Occupational Therapy, Physical Therapy, Senior Living Discharge VNA/Hospice/Home Care: [facility] Service Comments #1: The above agency will be providing visiting home services. They should contactyou within 24 ??? 48 hours of returning home. If they do not, please contact the company at the above number. ?? Pulmonary Rehab Status?? Pulmonary Rehab Discharge Status?? Respiratory Rate: 19 br/min ? Common Emergency Awareness Tips IS IT A STROKE? Act FAST and Check for these signs: FACE Does the face look uneven? ARM Does one arm drift down? SPEECH Does their speech sound strange? TIME Call at any sign of stroke ?? Heart Attack Signs Chest discomfort: Most heart attacks involve discomfort in the center of the chest and lasts more than a few minutes, or goes away and comes back. It can feel like uncomfortable pressure, squeezing, fullness or pain. Discomfort in upper body: Symptoms can include pain or discomfort in one or both arms, back, neck, jaw or stomach. Shortness of breath: With or without discomfort. Other signs: Breaking out in a cold sweat, nausea, or lightheaded. Remember, MINUTES DO MATTER. If you experience any of these heart attack warning signs, call to get immediate medical attention! ?? Smoking can increase your chances of developing chronic health problems and can cause harmful effects to other family members in your house. If you smoke, you are strongly encouraged to quit. Please call [facility] at [phone] or [phone] ([phone]) or log in to [email or web address] for referrals to smoking cessation programs. ?? 362 Suicide & Crisis Lifeline is available 08/11 if you or someone you know needs to find a reason to keep living. By calling 578 you'll be connected to a skilled, trained counselor at a crisis center in your area. INPATIENT DISCHARGE INSTRUCTIONS SIGNATURE PAGE MARICRUZ ALLEN Location:[facility] Registration Date and Time:08/02/2023 13:20 EDT Primary Care Physician: Not on Staff, PCP Attending Physician: Yoel ODOM, Schuyler, I MARICRUZ ALLEN, have received the above patient education materials/instructions and have verbalized understanding. If ambulance or transport services are being used I further acknowledge being given a choice of service. ?? If you need to contact me, please call me at this number: . Patient/Dictating Transcribing Machine Servicer Name: Patient/Dictating Transcribing Machine Servicer Signature: Relationship to Patient: Witness Name/Signature: Date: * Event Display: Provider Clarification Note Please click on pdf link to open report * Candice Yip RN: PERFORM, SIGN, VERIFY Event Display: Case Management Discharge Plan Authored Date: [id number] Patient: MARICRUZ ALLEN Age: 57 years Sex: Male : 1965 Associated Diagnoses: None Author: Candice Yip RN Discharge Plan Case Management Discharge Plan : Case Management Discharge Plan Data 08/04/2023 12:40 EDT Discharge Level of Care at Discharge Homehealth/VNA Discharge VNA/Hospice/Home Care [facility] [phone] Service Categories #1 Occupational Therapy, Physical Therapy, Senior Living Service Comments #1 The above agency will be providing visiting home services. They should contact you within 24 ??? 48 hours of returning home. If they do not, please contact the company at the above number. Consult note * Trang ODOM, John: PERFORM, MODIFY, MODIFY, MODIFY, MODIFY, MODIFY, MODIFY Event Display: Consultation Note Authored Date: [id number] Patient: ??MARICRUZ ALLEN ? Age:??57 Years?Sex:??Male?:??1965?? Reason for Consultation ??streptococcal bacteremia of unknown source Requested by Dr. Suad Parada MD History of Present Illness 57-year-old male with past medical history of liver disease, fibrosis anemia presents to the ER with shaking episode.sister is his caregiver at bedside?? reports patient had liver failure on while admitted [facility] for decompensated cirrhosis.?? Patient used to drink heavy alcohol to 1pint a day.??patient stopped alcohol from 05/30 used to do cocaine in the past stopped.also smoker quit 30 days back.patient left AMA at that facility and was taken to [facility] by his sister where he was admitted.?? He had recurrent anemia and underwent endoscopy.?? Per patient he had no??paracentesis done.?? Patient had shaking chills and shortness of breath at home was brought to the ER found to have a temperature of 103.4 started on Zosyn, also transiently hypotensive after blood pressures were 88/55 patient has no complaints of any abdominal pain family says he does not report any pain. Patient has distention and swelling in the right lower extremity as well as his abdomen andhis lower back. Patient does take lactulose was told he needs to have 3-4 bowel movements a day.?? No complaints of blood per rectum or black stools.?? No complaints of any chest pain.?? Patient had a CT scan of the abdomen pelvis showing extensive anasarca/third spacing otherwise no acute abnormality.?? Small upper abdominal lymph nodes nonspecific and could be reactive.?? Had a Doppler of the right lower extremity showing no evidence of any DVT.?? Chest x-ray done shows low volumes with minimal bibasilar atelectasis left worse than right patient was noted to streptococcal bacteremia and infe ctious disease consultation was requested.Blood cultures??drawn on 08/01 are positive for??Streptococcus??agalactiae Patient had bariatric surgery in the past??was close to 400+ pounds,??current weight being 209 pounds??and he does have after the surgery still??significant swelling on his right??lower extremity??, has the body folds,?Has cough??with some shortness of breath and wheezing but no??nausea had vomited once on Tuesday no coffee-ground emesis.?? No history of any recent viral infections??and he did receive blood transfusions in the past??had a surgery for circumcision??and this was last year??had to??take out some? ?lesions??on the prepuce. ??Currently has a small penile lesion??on the??tip of the glans penis??nopain,??was told to have hepatitis C??recently??but then when he met the specialist he was told he does not have??it. No known drug allergies Patient has significant history of??alcohol use, history of??cocaine abuse??test No IV drug abuse Was a smoker quit 1 month ago ? Blood cultures drawn on 08/01 are positive for gram-positive cocci??but shows a Streptococcus agalactiae currently on vancomycin Review of Systems 14 point review of systems??done??other than mentioned in the history of present illness other system review is benign??some tenderness in the right shoulder Physical Exam Vitals & Measurements Vital Signs?? Temperature: 97.8 DegF (08/03/23 07:37:00) Temperature Route: Oral (08/03/23 07:37:00) Pulse Rate: 76 bpm (08/03/23 09:41:00) Respiratory Rate: 18 br/min (08/03/23 07:37:00) Systolic Blood Pressure: 92 mm Hg (08/03/23 09:41:00) Diastolic Blood Pressure: 59 mm Hg (08/03/23 09:41:00) Blood pressure sites: Arm, left (08/03/23 07:37:00) Mean Arterial Pressure: 70 mm Hg (08/03/23 07:37:00) Pulse Pressure: 33 mm Hg (08/03/23 07:37:00) Oxygen Saturation: 97 % (08/03/23 07:37:00) Mode of Delivery (Oxygen): Room air (08/03/23 07:37:00) Early Warning Score:??12??Critical (08/03/23 09:49:13) Constitutional: Alert, in no distress. Mental Status: Oriented to person, place and time. Head: Normocephalic. Eyes: Pupils are equal, round and reactive to light. Extraocular muscles intact. Ear, Nose and Throat: Oropharynx clear, mucous membranes moist.??Trachea midline. Neck: Supple, Full range of motion. Respiratory: Clear to auscultation. No wheezing, rales or rhonchi.?? Has??right- sided??mild gynecomastia with some redness noted??in the area??with elevated temperature??minimal tenderness Cardiovascular: S1 S2 regular. No murmurs, rubs or gallops. Gastrointestinal: Abdomen soft, non-distended. Normal bowel sounds. ??Obese abdomen??has significant??erythema??increased temperature??and some mild tenderness noted in the??lower belly area??extending onto the??hypogastric area. Genitourinary: No costovertebral angle tenderness.?? Glans penis has a??2 to 3 mm ulcer which is nontender,??no inguinal lymphadenopathy appreciated Neurologic:??Moves all extremities spontaneously. Skin: Erythema of the??right??lower abdominal wall??as mentioned earlier Musculoskeletal: Noted significant swelling on the??right lower extremity??in the??medial aspect ofthe upper thigh??extending to mid??thigh he has??a scar Heme/Lymphatics/Immun: Palpation of neck reveals no swelling or tenderness of neck nodes. Palpationof groin reveals no swelling or tenderness of groin nodes. Psychiatric: Normal mood and affect Assessment/Plan 57-year-old male with past medical history of liver disease, fibrosis anemia presents to the ER with shaking episode was brought to the ER noted to have a temperature of 103.4 started on Zosyn, also transiently hypotensive after blood pressures were 88/55 patient has no complaints of any abdominal pain? Patient had a CT scan of the abdomen pelvis showing extensive anasarca/third spacing otherwise no acute abnormality.?? Small upper abdominal lymph nodes nonspecific and could be reactive.?? Had a Doppler of the right lower extremity showing no evidence of any DVT.?? Chest x-ray done shows low volumes with minimal bibasilar atelectasis left worse than right patient was noted to streptococcal bacteremia patient had blood cultures positive for Streptococcus agalactiae??most likely source could be from the skin??as he has??cellulitis/panniculitis??again has a small lesion on the glans penis??doubt it is the source.?? Would like to??continue him on??penicillin G??3 to 4,000,000 units every 4 hours??but??given his cirrhosis and??going to put a??fluid load on,??other option is to give ceftriaxone??2 g??daily,for total duration of 14 days from the time of clearance of bacteremia but a shorter duration of 10 days can be given with rapid clearance of bacteremia and clinical improvement??with ceftriaxone Gallbladder sludge ,can increase serum bilirubin.??patient does not have any heartmurmur??or prolonged??bacteremia so no need for echocardiogram??at this time. ?? Recommendations: Repeat blood cultures tomorrow Discontinue vancomycin Give ceftriaxone??2 g??daily,??will look for liver function tests Thank you for this consultation.? Durga. Trang ODOM PGY4 Infectious diseases Fellow ? This patient was seen and discussed with attending physician, Dr. Farmer Problem List/Past Medical History Ongoing No qualifying data Medications Inpatient Acetaminophen Tablet, 650 mg, By Mouth, Every 4 hours, PRN lactulose 10 gm/15 ml oral syrup, 30 Gm= 45 mL, By Mouth, Every 8 hours Melatonin Tablet, 9 mg, By Mouth, Daily at bedtime, PRN midodrine 5 mg oral tablet, 5 mg, By Mouth, 3 times a day MiraLax Powder, 17 Gm= 1 pack/packet, By Mouth, Daily, PRN Multivitamin Tablet, 1 tablet, By Mouth, Daily NaCL 0.9% Flush, 3 mL, IV Push, Every 8 hours NaCL 0.9% Flush, 3 mL, IV Push, Every 8 hours, PRN pantoprazole 40 mg oral delayed release tablet, 40 mg, By Mouth, Daily RifAXIMIN Tablet, 550 mg, By Mouth, 2 times a day Senna Tablet, 8.6 mg= 1 tablet, By Mouth, 2 times a day, PRN thiamine 100 mg oral tablet, 100 mg, By Mouth, Daily Vancomycin IVPB, 1250 mg, 15 mg/kg, IVPB, Every 24 hours Home HydrOXYzine HCL Tablet, 10 mg, By Mouth, 4 times a day, PRN lactulose 10 gm/15 ml oral syrup, 20 Gm= 30 mL, By Mouth, 3 times a day Lasix 20 mg oral tablet, 20 mg= 1 tablet, By Mouth, Daily Multivitamin rifAXIMin 550 mg oral tablet, 550 mg= 1 tablet, By Mouth, 2 times a day thiamine 100 mg oral tablet, 100 mg= 1 tablet, By Mouth, Daily Antibiotic History Active Antibiotics Calendar Day Last Administered First Administered Rifaximin??550 mg, By Mouth, 2 times a day ?1 08/03/2023 09:40 08/03/2023 00:16 Vancomycin??1,250 mg, 166.67 mL/hr, IVPB, Every 24 hours ?2 08/02/2023 22:30 08/02/2023 22:30 ? Stopped Antibiotics Stop Date/Time Last Administered First Administered Piperacillin-Tazobactam??3.375 Gm, IVPB, Once 08/02/2023 10:33 08/02/2023 10:32 08/02/2023 10:32 Allergies NKA Social History Alcohol Use: Past. Frequency: Several times per day. Other: quit 05/30/23. Stopped at age: 57 Years. Substance Abuse Use: Past. Type: Cocaine. Other: quit 05/30/23. Tobacco Use: Former smoker, quit more than 30 days ago. Lab Results *Tagged Labs Culture/Event_id: ?Blood Culture #[id number]?? Collect date: ?08/02/23 09:15 ? Result Status: ?Auth (Verified) Result Date: ?08/02/23 22:06 ? Specimen: BLOOD ? >??Blood Cult 2 Results:??Preliminary report?? [facility], [employer] ([address], ??[place] [address] Dir: Fran Arguello MD ?? >??Blood Culture 2 Specimen Source:??BLOOD?? LWRIST ?? >??Blood Culture 2 Isolate 1:??Gram positive cocci?? Recovered from aerobic and anaerobic bottles. [facility] at [facility], [employer] ([address], [place] [address] Dir: Fran Arguello MD ? Culture/Event_id: ?Blood Culture/[id number]?? Collect date: ?08/02/23 09:05 ? Result Status: ?Auth (Verified) Result Date: ?08/02/23 23:14 ? Specimen: BLOOD ?? >??Blood Culture Results:??Preliminary report? >??Blood Culture Specimen Source:??BLOOD?? RWRIST ?? >??Blood Culture Isolate 1:??Gram positive cocci?? Recovered from aerobic and anaerobic bottles. Testing performed at [facility], [employer] ([address], [place] [address] Dir: Fran Arguello MD ?? >??Reflex to Rapid ID, YURIY:?? This specimen has reflexed to a [employer] BCID2 panel. Testing performed at [facility], [address], [address], [place] [address] Dir: Fran Arguello MD ?? >??Streptococcus spp., Culture 1:??DETECTED?? Reference range: Not Detected ?? >??Streptococcus agalactiae, Culture 1:??DETECTED?? Reference range: Not Detected Diagnostic Results ?? (08/02/2023 15:40 EDT Chest 2 Views Frontal and Lat) IMPRESSION: ?? Slightly limited examination due to the patient's body habitus and underpenetration. ?? Significantly low lung volumes with minimal bibasilar atelectasis left slightly worse than the right. No pulmonary vascular congestion or significant focal consolidation is seen. [1] (08/02/2023 13:01 EDT US Doppler Ext Lower Venous Right) IMPRESSION:? No evidence of deep venous thrombosis. [2] ?? (08/02/2023 11:[address] Abd/Pelvis W/ IV Contrast Only) IMPRESSION:? Extensive anasarca/third spacing. Otherwise no acute abnormality. ?? Small upper abdominal lymph nodes, nonspecific and could be reactive. [3] [1]??Chest 2 Views Frontal and Lat; Uziel ODOM, Juan V 08/02/2023 15:40 EDT [2]??US Doppler Ext Lower Venous Right; Coretta ODOM, Moustapha 08/02/2023 13:01 EDT [3]??CT Abd/Pelvis W/ IV Contrast Only; Andrade ODOM, Klaus W 08/02/2023 11:07 EDT * Darian ODOM, Herbert Hernandez S: PERFORM Event Display: Consultation Note Authored Date: H+P/labs reviewed. Consulted for streptococcal sepsis. ??Events noted. Patient was seen and examined with Dr. Costello on the day of consultation. ??Source likely extensive abdominal wall/trunk cellulitis. I agree with his findings and plans as below. Will continue to follow pt. with you. Agree withceftriaxone for ease of dosing and better in terms of fluid management (vs. using PCN G). No clinical evidence of endocarditis or septic joint. Repeat BCx for clerarance. Will continue to follow pt. with you. ?? Total time spent:??80 minutes ---- 40 mins: data gathering and reviwing test results plus??40 mins.on [id number] encounter, performing a medically necessary evaluation, decision making, ordering appropriate tests and coordination of care. ? Patient Care team information Care Team Personnel Name: Not on Staff, PCP Position: S Physician (General Medicine) Member Role: PCP
[2023-08-18] MEDS: Lactulose 20 GM/30 ML SOLUTION 30 GM PO (00:54)
[2023-08-18] MEDS: Melatonin 3 MG TABLET 6 MG PO (00:57)
[2023-08-18] MEDS: iohexoL 350 MG/ML 100 ML INFUS..BTL 85 ML IV (01:22)
[2023-08-18] MEDS: Acetaminophen 325 MG TABLET 650 MG PO ×2 (05:31→16:17)
[2023-08-18 05:58] LABS: MANUAL DIFF FLAG NO
[2023-08-18 06:00] LABS: Basophils Percent Auto 0.5 % (0-2); Eosinophils Absolute Auto 0.3 X10*3/uL (0.0-0.4); Eosinophils Percent Auto 3.8 % (0-4); Hemoglobin 7.1 g/dl (14.0-18.0); Imm Gran Abs Auto 0.02 X10*3/uL (0.00-0.03); Imm Gran Pct Auto 0.3 % (0.0-0.4); Lymphocytes Absolute Auto 1.9 X10*3/uL (1.2-4.9); Lymphocytes Percent Auto 28.1 % (20-40); Mean Corpuscular HGB Conc 35.3 g/dl (31.0-36.0); Mean Corpuscular Hemoglobin 28.7 pg (27.0-33.0); Mean Corpuscular Volume 81.4 fL (80.0-98.0); Mean Platelet Volume 10.2 fL (9.4-12.4); Monocytes Percent Auto 15.2 % (2-11); Neutrophils Absolute Auto 3.5 x10*3/uL (2.0-8.3); Neutrophils Percent Auto 52.1 % (45-73); Platelet Count 164 X10*3/uL (160-400); Red Blood Count 2.47 X10*6/uL (4.60-5.80); Red Cell Distribution Width 17.5 % (11.0-16.0); White Blood Count 6.6 X10*3/uL (4.8-10.8)
[2023-08-18 06:09] LABS: Hematocrit 20.1 % (42.0-52.0)
[2023-08-18 06:23] LABS: Anion Gap 10 (12-20); Blood Urea Nitrogen 18 mg/dL (9-16); Calcium 8.1 mg/dL (8.4-10.2); Carbon Dioxide 19 mmol/L (22-29); Chloride 114 mmol/L (96-108); Creatinine Clr Calc Pharmacy 88.5; Estimated Glomerular Filt Rate > 60; Glucose Random 86 mg/dL (60-115); Potassium 4.9 mmol/L (3.3-5.1); Sodium 138 mmol/L (135-145)
--- NOTE | 2023-08-18 06:43 | PM.EVENT ---
Event Note Date of Service: 08/18/23 Event Note: Noted drop in H&H. Initiate IV protonix, octreotide, keep pt NPO and consult GI Time Spent With Patient Time: Total time managing care of this patient today ____ minutes.
--- NOTE | 2023-08-18 07:31 | P.CNGI_ITS ---
History of Present Illness Data of Consult Service Date: 08/18/23 Requesting physician: Johanna Correa Primary Care Provider: Arin Nelson MD HPI Reason for consult: anemia, hepatic encephalopathy 57 YM with alcoholic cirrhosis, gastroesophageal reflux disease brought to [facility] ED by his sister for evaluation of confusion. Pt's sister stated that she has noticed confusion that has been ongoing for the past 2 days. Patient has been forgetting things over the last 2 days. Sister reports a hx of intermittent constipation and an episode of BRB per rectum on 08/06/23. The sister states that patient stools may have been darker but she is unsure. He also was speaking to the sister about having bowel incontinence and cleaning himself but the sister stated that this never happened as she did not see any dirty linens and he would not be able to clean himself. Patient was talking to the neices and was not making sense. He also forgot phone numbers which was unlike him. She also noticed increased shaking on the day of presentation. Patient is compliant with home lactulose. States his last drink was in May 2023. No nausea, vomiting, abdominal pain. No fever, chills, chest discomfort, palpitations, shortness of breath, changes in urinary habits Pt reports having gastric bypass surgery in [place] ? 22 yrs ago Pt reports being told about liver disease earlier last year. Cont to drink a pint of hard liquor. He reports he quitted drinking since 05/30/23 Has had hospital visits for intoxication/withdrawal in the past but has never been to a rehab as per his report. Also reports prev drug use, last used cocaine in Feb 2023. Pt lives with his Mom and sister. PAST GI HISTORY BY REVIEW OF MEDICAL RECORDS: 06/2023 EGD WAS PERFORMED BY DR TOTH EGD Impressions:? * Normal esophagus * Portal hypertensive gastropathy * Gastric and small bowel AVMs * Enteroenteric anastomosis ?? Recommendations:?? * No varices noted on exam today * Will need colonoscopy as outpatient to complete evaluation for anemia as previously discussed with the patient. * PPI can be descalated to once daily * Avoid NSAIDs. 07/22/23 COLONOSCOPY SHOWED: 1. Incomplete colo - poor prep 2. No active bleeding Recommendations: - Will need repeat colo which can be set up as outpatient Review of Systems 2 Review of Systems: Yes all other systems are reviewed and are negative [facility] Past Medical History Medical History Cirrhosis Anemia Abdominal wall swelling Hyperammonemia Hepatic steatosis Diarrhea resulting from infection of the bowel mucosa Liver lesion Substance use Alcohol use disorder Anemia Chronic kidney disease Alcohol dependence Surgical History Surgical History Hx of colonoscopy Hx of esophagogastroduodenoscopy History of urologic surgery H/O varicose vein stripping S/P bariatric surgery Social History Social History Household Members: Other Household Members Other:: sister Housing: Apartment Do you presently have visiting nurse or other home services: Yes (vna) Alcohol intake: former Patient Tobacco Use Status: Former Tobacco user Quit Date: 05/30/23 Tobacco use type: Cigarette Second Hand Smoke Exposure: No Substance Use Type: Crack/Cocaine and Marijuana Advance Directives Date on File: 06/08/23 service: No Current occupational status: employed Meds Allergies Allergy/AdvReac Type Severity Reaction Status Date / Time No Known Allergies Allergy Verified 08/29/23 09:52 Active Medications: Current Medications Acetaminophen (Acetaminophen 325 Mg Tablet) 650 mg PO Q6H PRN PRN Reason: Pain, Mild (Pain Scale 1-3) Last Admin: 08/18/23 05:31 Dose: 650 mg Octreotide Acetate 500 mcg/ (Sodium Chloride) 501 mls @ 50.1 mls/hr IVCONT .Q10H VALERIE Sodium Chloride (Ns) 100 mls @ 100 mls/hr IV ONCE ONE Stop: 08/18/23 07:42 Melatonin (Melatonin 3 Mg Tablet) 6 mg PO BEDTIME PRN PRN Reason: Insomnia Last Admin: 08/18/23 00:57 Dose: 6 mg Ondansetron HCl (Ondansetron Hcl 4 Mg/2 Ml Vial) 4 mg IVPUSH Q8H PRN PRN Reason: Nausea and Vomiting Pantoprazole Sodium (Pantoprazole Sodium 40 Mg/10 Ml Vial) 40 mg IVPUSH BID@0630,1630 VALERIE Sodium Chloride (0.9 % Sodium Chloride Flush 3 Ml Syringe) 3 ml IVFLUSH [facility] Home Medications ?Medication ?Instructions ?Recorded ?Confirmed ?Last Taken ?Type melatonin 5 mg tablet 10 mg PO BEDTIME PRN Insomnia 07/18/23 08/18/23 Unknown History lidocaine 5 % topical patch 1 patch topical DAILY 08/18/23 08/18/23 Unknown History Physical Exam 2 Vital Signs: Vital Signs: Last Vital Signs Temp 98.9 F 08/18/23 06:21 Pulse 85 08/18/23 06:21 Resp 16 08/18/23 06:21 BP 106/53 L 08/18/23 06:21 Pulse Ox 94 08/18/23 06:21 O2 Del Method Room Air 08/18/23 06:21 BMI result Body Mass Index 31.0 Frail gentleman, under nourished Bitemporal wasting Abdomen soft, nontender, Lower extremity with nonpitting edema in the right leg and pitting edema on the left [employer] + Results Labs 08/20/23 05:43 08/20/23 05:43 Labs: Short CBC 08/17/23 08/18/23 Range/Units 21:37 04:41 WBC 8.3 6.6 (4.8-10.8) X10*3/uL Hgb 8.0 L 7.1 L (14.0-18.0) g/dl Hct 22.7 L 20.1 L* (42.0-52.0) % Plt Count 173 164 (160-400) X10*3/uL BMP 08/17/23 08/18/23 21:37 04:41 Sodium 140 138 Potassium 4.8 4.9 Chloride 114 H 114 H Carbon Dioxide 21 L 19 L BUN 18 H 18 H Creatinine 1.20 1.14 Calcium 8.4 8.1 L Liver Function 08/17/23 Range/Units 21:37 Total Bilirubin 1.5 H (0.0-1.0) mg/dL AST 61 H (5-37) U/L ALT 31 (0-40) U/L Alkaline Phosphatase 130 H (39-117) U/L Albumin 2.5 L (3.5-5.0) g/dL Urine 08/18/23 Range/Units 00:15 Urine Color Yellow Urine Appearance Clear Urine pH 7.5 (5.0-9.0) Ur Specific Sledge 1.020 (1.005-1.025) Urine Protein Negative (Neg-Trace) mg/dL Urine Glucose (UA) Negative (Negative) mg/dL Assessment and Plan (1) Anemia: Status: Inactive (2) Hepatic encephalopathy: Status: Resolved (3) Cirrhosis: Status: Inactive Plan 57 YM with polysubstance abuse, alcoholic cirrhosis, gastroesophageal reflux disease, status post RYGBP surgery admitted to [facility] on 08/17/23 with hepatic encephalopathy and acute on chronic anemia. Sister reports a hx of intermittent constipation and an episode of BRB per rectum on 08/06/23. The sister states that patient stools may have been darker but she is unsure. Pt's mental status has improved and is fairly alert and answers appropriately to questions. Pt reports being told about liver disease earlier last year. Cont to drink a pint of hard liquor. He reports he quitted drinking since 05/30/23 Past hematology evaluation showed Charanjit negative mild hemolysis, LDH was slightly elevated with indirect hyperbilirubinemia and haptoglobin <10 felt to be related to liver disease. Alcohol-related bone marrow suppression could also be contributing to the process. Pt was transfused 1 U PRBC earlier today. RECOMMENDATIONS: 1. Agree with IV PPI, anti emetics and octreotide infusion 2. Continue lactulose and rifaximin for hepatic encephalopathy 3. Repeat CBC tonight 4. Proceed with EGD and Colonoscopy on 08/19/23. Dulolax and GoLYTELY prep was ordered. Procedures Date of Service Date of Service: 09/01/23
[2023-08-18] MEDS: Pantoprazole Sodium 40 MG/10 ML VIAL IVPUSH ×2 (07:53→16:18)
[2023-08-18] MEDS: Octreotide Acetate 500 MCG in 0.9 % Sodium Chloride 500 ML 50.1 MCG IVCONT ×2 (07:53→17:36)
[2023-08-18 08:32] LABS: Ammonia 130 umol/L (13-55)
--- NOTE | 2023-08-18 09:45 | PM.EVENT ---
Event Note Date of Service: 08/18/23 Event Note: The patient was seen and evaluated this morning More alert but overall confused no bleeding reported, Hb dropped to 7.1 To give 1 unit PRBCs Lactulose GI to do EGD Follow CBC Time Spent With Patient Time: Total time managing care of this patient today ____ minutes.
[2023-08-18] MEDS: Lactulose 20 GM/30 ML SOLUTION PO ×3 (10:46→19:48)
[2023-08-18] MEDS: rifAXIMin 550 MG TABLET PO ×2 (10:46→19:47)
[2023-08-18] MEDS: Lidocaine 4 % Patch ADH..PATCH 1 PATCH TRANSDERMA ×2 (10:46→16:20)
--- NOTE | 2023-08-18 11:33 | PHA.MEDREC ---
Pharmacy Consult ? Medication Reconciliation Pharmacy has completed the medication reconciliation. Spoke to Rubi (sister) at bedside and she confirmed medication list. She said she will go home and check if there's any other medication that patient takes. She also wants us to call [facility] to check since he fills medications there. I spoke to pharmacy staff and added lactulose 30 ml up to 6x/day prn and lidocaine 5% patch daily to med list.
--- NOTE | 2023-08-18 13:33 | MHC.CM.PN ---
Met with patient and sister, Rubi in regards to discharge planning. Patient lives with Rubi, uses a walker for mobility and is active with [facility]. PCp veried. Copy of HCP verifed to be on file. Patient feels he needs more help at home. Information on speaking to PCP about services through [facility] provided. Patient agreeable to referral to [facility] to see if he would qualify for any additional services. Patient's family will transport patient home. Continue to monitor for d/c needs.
[2023-08-18] MEDS: bisacodyL 5 MG TABLET.DR 10 MG PO (16:42)
[2023-08-18] MEDS: PEG 3350/Na Sulf,Bicarb,Cl/KCL 4,000 ML SOLN.RECON 4000 ML PO (17:13)
--- NOTE | 2023-08-18 17:50 | PC.NURSE ---
Pt given 1 unit of PRBCs this AM as well as continous gtt of Octreotide. Family at bedside throughout the day. Updated by Dr. Mcnally and Dr. Funk. PLan for EGD and colonoscopy tomorrow. Pt and family verbalize understanding of drink prep.
[2023-08-18] MEDS: 0.9 % Sodium Chloride Flush 3 ML SYRINGE IVFLUSH (19:48)
[2023-08-18 20:52] LABS: Hematocrit 22.8 % (42.0-52.0); Mean Corpuscular HGB Conc 35.1 g/dl (31.0-36.0); Mean Corpuscular Hemoglobin 28.6 pg (27.0-33.0); Mean Corpuscular Volume 81.4 fL (80.0-98.0); Mean Platelet Volume 11.9 fL (9.4-12.4); Platelet Count 153 X10*3/uL (160-400); Red Cell Distribution Width 17.4 % (11.0-16.0); White Blood Count 6.4 X10*3/uL (4.8-10.8)
[2023-08-19] VITALS (14 sets, daily range): BP systolic 97–115; BP diastolic 42–69; PULSE 58–107; RESP 16–18; TEMP 36.1–37.1; O2SAT 94–99; BMI 30.6
[2023-08-19] MEDS: Melatonin 3 MG TABLET 6 MG PO ×2 (01:05→20:07)
[2023-08-19] MEDS: Octreotide Acetate 500 MCG in 0.9 % Sodium Chloride 500 ML 50.1 MCG IVCONT (03:55)
[2023-08-19 05:17] LABS: Hematocrit 21.7 % (42.0-52.0); Hemoglobin 7.7 g/dl (14.0-18.0); Mean Corpuscular HGB Conc 35.5 g/dl (31.0-36.0); Mean Corpuscular Hemoglobin 28.6 pg (27.0-33.0); Mean Corpuscular Volume 80.7 fL (80.0-98.0); Mean Platelet Volume 9.2 fL (9.4-12.4); Platelet Count 157 X10*3/uL (160-400); Red Blood Count 2.69 X10*6/uL (4.60-5.80); Red Cell Distribution Width 17.5 % (11.0-16.0); White Blood Count 5.4 X10*3/uL (4.8-10.8)
[2023-08-19 05:35] LABS: Anion Gap 9 (12-20); Blood Urea Nitrogen 15 mg/dL (9-16); Calcium 8.3 mg/dL (8.4-10.2); Carbon Dioxide 20 mmol/L (22-29); Chloride 113 mmol/L (96-108); Creatinine Clr Calc Pharmacy 101.9; Estimated Glomerular Filt Rate > 60; Glucose Random 109 mg/dL (60-115); Sodium 137 mmol/L (135-145)
[2023-08-19] MEDS: Pantoprazole Sodium 40 MG/10 ML VIAL IVPUSH ×2 (06:06→17:50)
--- NOTE | 2023-08-19 07:17 | PC.NURSE ---
Assumed care of patient at 19:15 in the evening. Repeat CBC drawn in evening and this morning per MD orders following RBC transfusion yesterday morning. Covering Dr. Venkata Hayes notified of H+H this morning 7.7/21.7 down slightly from evening results. No new orders. VSS and patient asymptomatic. Pt drinking go-lytely prep and given schedule lactulose for EGD. NPO since 02:00 per order. Patient transported by [facility] RN in stable condition at ~06:35 this morning for EGD.
--- NOTE | 2023-08-19 07:20 | MHC.SHP ---
Pre-Procedural Eval Section A - 24 Hr Update-Section A only Date of Service: 08/19/23 The patient is an INPATIENT: Yes The patient has been examined within 24 hours of the surgical procedure. The History & Physical has been completed within 30 days and I have reviewed it.: Yes Section B - Complete if H&P > 30 days Chief Complaint: acute on chronic anemia Allergies: Allergies Allergy/AdvReac Type Severity Reaction Status Date / Time No Known Allergies Allergy Verified 08/17/23 21:09 Plan Diagnosis/Plan: Unchanged I have reviewed the history and physical and performed a pertinent physical examination on my patient. No changes have occurred unless specified. Time Spent With Patient Time: Total time managing care of this patient today ____ minutes.
--- NOTE | 2023-08-19 07:29 | P.CONAN_ITS ---
[facility] Active Problems Active Problems: All Active Problems Cirrhosis (Acute) Shortness of breath (Acute) Elevated brain natriuretic peptide (BNP) level (Acute) Anemia (Acute) Hepatic encephalopathy (Acute) Hyperkalemia (Acute) Penile erosion (Acute) Phimosis (Acute) Past Medical History Medical History Cirrhosis Anemia Abdominal wall swelling Hyperammonemia Hepatic steatosis Diarrhea resulting from infection of the bowel mucosa Liver lesion Substance use Alcohol use disorder Anemia Chronic kidney disease Alcohol dependence Functional capacity: independent ambulation Family History Family history of problems with anesthesia: No Surgical History Surgical History Hx of colonoscopy Hx of esophagogastroduodenoscopy History of urologic surgery H/O varicose vein stripping S/P bariatric surgery History of Problems with Anesthesia: No Social History Social History Household Members: Family Household Members Other:: 2 Housing: Apartment Do you presently have visiting nurse or other home services: Yes (PT) Alcohol intake: former Comment: Refused in bathroom supervision. Patient Tobacco Use Status: Former Tobacco user Quit Date: 05/30/23 Tobacco use type: Cigarette Smoked in Last 30 Days: No Second Hand Smoke Exposure: No Use of substances other than those prescribed or required for medical reasons: No Substance Use Type: Crack/Cocaine and Marijuana Substance Use Type Other:: former cocaine Are you DNR?: No Advance Directives: Yes Advance Directives on File: Yes Advance Directives Date on File: 06/08/23 Do you have a plan to hurt others: No Plan Nutrition Risks: No Nutritional Risk service: No Current occupational status: employed Travel History History of recent travel: No Meds Allergies Allergy/AdvReac Type Severity Reaction Status Date / Time No Known Allergies Allergy Verified 08/17/23 21:09 Active Medications: Current Medications Acetaminophen (Acetaminophen 325 Mg Tablet) 650 mg PO Q6H PRN PRN Reason: Pain, Mild (Pain Scale 1-3) Last Admin: 08/18/23 16:17 Dose: 650 mg Octreotide Acetate 500 mcg/ (Sodium Chloride) 501 mls @ 50.1 mls/hr IVCONT .Q10H VALERIE Last Admin: 08/19/23 03:55 Dose: 50 mcg/hr, 50.1 mls/hr Lactulose (Lactulose 20 Gm/30 Ml Solution) 20 gm PO QID [facility] Last Admin: 08/18/23 19:48 Dose: 20 gm Lidocaine (Lidocaine 4 % Patch Adh..Patch) 1 patch TRANSDERMA DAILY [facility]; Protocol Last Admin: 08/18/23 10:46 Dose: 1 patch Lidocaine (Lidocaine 4 % Patch Adh..Patch) 1 patch TRANSDERMA DAILY [facility]; Protocol Last Admin: 08/18/23 16:20 Dose: 1 patch Melatonin (Melatonin 3 Mg Tablet) 6 mg PO BEDTIME PRN PRN Reason: Insomnia Last Admin: 08/19/23 01:05 Dose: 6 mg Multivitamins/Vitamin C (Multivitamin Tablet) 1 tab PO DAILY [facility] Omeprazole (Omeprazole 40 Mg Capsule.Dr) 40 mg PO DAILY [facility] Ondansetron HCl (Ondansetron Hcl 4 Mg/2 Ml Vial) 4 mg IVPUSH Q8H PRN PRN Reason: Nausea and Vomiting Pantoprazole Sodium (Pantoprazole Sodium 40 Mg/10 Ml Vial) 40 mg IVPUSH BID@0630,1630 [facility] Last Admin: 08/19/23 06:06 Dose: 40 mg Rifaximin (Rifaximin 550 Mg Tablet) 550 mg PO BID [facility] Last Admin: 08/18/23 19:47 Dose: 550 mg Sodium Chloride (0.9 % Sodium Chloride Flush 3 Ml Syringe) 3 ml IVFLUSH QSHIFT [facility] Last Admin: 08/18/23 19:48 Dose: 3 ml Thiamine HCl (Thiamine Hcl 100 Mg Tablet) 100 mg PO DAILY [facility] Zinc Sulfate (Zinc Sulfate 220 Mg Capsule) 220 mg PO DAILY [facility] Home Medications ?Medication ?Instructions ?Recorded ?Confirmed ?Last Taken ?Type melatonin 5 mg tablet 10 mg PO BEDTIME PRN Insomnia 07/18/23 08/18/23 Unknown History lactulose 10 gram/15 mL oral 30 ml PO Q4H PRN Constipation 08/18/23 08/18/23 Unknown History solution lidocaine 5 % topical patch 1 patch topical DAILY 08/18/23 08/18/23 Unknown History Exam Height,Weight and Vital Signs: Height 5 ft 11 in Weight 100.8 kg Last Vital Signs Temp 97.7 F 08/19/23 06:48 Pulse 61 08/19/23 06:48 Resp 18 05/03/24 06:48 BP 110/69 08/19/23 06:48 Pulse Ox 96 08/19/23 06:48 O2 Del Method Room Air 08/19/23 06:48 Pertinent Lab Results Pertinent Lab Results: Laboratory Tests 08/17/23 08/17/23 08/18/23 21:37 23:08 00:15 WBC 8.3 RBC 2.77 L Hgb 8.0 L Hct 22.7 L MCV 81.9 MCH 28.9 MCHC 35.2 RDW 17.5 H Plt Count 173 MPV 9.8 Immature Gran % (Auto) 0.4 Neut % (Auto) 59.6 Lymph % (Auto) 21.6 [place] % (Auto) 14.3 H Eos % (Auto) 3.3 Baso % (Auto) 0.8 Lymph # (Auto) 1.8 [place] # (Auto) 1.2 Eos # (Auto) 0.3 Baso # (Auto) 0.1 Abs Immat Gran (auto) 0.03 Absolute Neuts (auto) 4.9 Absolute Nucleated RBC 0.000 Nucleated RBC % (auto) 0.0 Sodium 140 Potassium 4.8 Chloride 114 H Carbon Dioxide 21 L Anion Gap 10 L BUN 18 H Creatinine 1.20 Estim Creat Clear Calc 84.1 Estimated GFR > 60 Random Glucose 95 Calcium 8.4 Magnesium 2.0 Total Bilirubin 1.5 H AST 61 H ALT 31 Alkaline Phosphatase 130 H Ammonia 109 H Troponin I High Sens 3.2 B-Natriuretic Peptide 290 H Total Protein 7.1 Albumin 2.5 L Lipase 52 Urine Color Yellow Urine Appearance Clear Urine pH 7.5 Ur Specific [place] 1.020 Urine Protein Negative Urine Glucose (UA) Negative Urine Ketones Negative Urine Blood Negative Urine Nitrite Negative Ur Leukocyte Esterase Trace H Urine RBC 0-2 Urine WBC 0-5 Ur Squamous Epith Cells 0-2 Urine Bacteria None Seen Hyaline Casts 0-2 Urine Opiates Screen Not Detected Ur Buprenorphine Scrn Not Detected Ur Oxycodone Screen Not Detected Urine Methadone Screen Not Detected Urine Fentanyl Screen Not Detected Ur Barbiturates Screen Not Detected Ur Phencyclidine Scrn Not Detected Ur Amphetamines Screen Not Detected U Benzodiazepines Scrn Not Detected Urine Cocaine Screen Not Detected U Marijuana (THC) Screen Not Detected Ethyl Alcohol < 10 Influenza Type A (PCR) NEGATIVE Influenza Type B (PCR) NEGATIVE RSV RNA Qual (PCR) NEGATIVE SARS-CoV-2 RNA (RT-PCR) NEGATIVE Blood Type Antibody Screen Crossmatch 08/18/23 08/18/23 08/18/23 04:41 08:20 19:04 WBC 6.6 6.4 RBC 2.47 L 2.80 L Hgb 7.1 L 8.0 L Hct 20.1 L* 22.8 L MCV 81.4 81.4 MCH 28.7 28.6 MCHC 35.3 35.1 RDW 17.5 H 17.4 H Plt Count 164 153 L MPV 10.2 11.9 Immature Gran % (Auto) 0.3 Neut % (Auto) 52.1 Lymph % (Auto) 28.1 [place] % (Auto) 15.2 H Eos % (Auto) 3.8 Baso % (Auto) 0.5 Lymph # (Auto) 1.9 [place] # (Auto) 1.0 Eos # (Auto) 0.3 Baso # (Auto) 0.0 Abs Immat Gran (auto) 0.02 Absolute Neuts (auto) 3.5 Absolute Nucleated RBC 0.000 0.000 Nucleated RBC % (auto) 0.0 0.0 Sodium 138 Potassium 4.9 Chloride 114 H Carbon Dioxide 19 L Anion Gap 10 L BUN 18 H Creatinine 1.14 Estim Creat Clear Calc 88.5 Estimated GFR > 60 Random Glucose 86 Calcium 8.1 L Magnesium Total Bilirubin AST ALT Alkaline Phosphatase Ammonia 130 H Troponin I High Sens B-Natriuretic Peptide Total Protein Albumin Lipase Urine Color Urine Appearance Urine pH Ur Specific [place] Urine Protein Urine Glucose (UA) Urine Ketones Urine Blood Urine Nitrite Ur Leukocyte Esterase Urine RBC Urine WBC Ur Squamous Epith Cells Urine Bacteria Hyaline Casts Urine Opiates Screen Ur Buprenorphine Scrn Ur Oxycodone Screen Urine Methadone Screen Urine Fentanyl Screen Ur Barbiturates Screen Ur Phencyclidine Scrn Ur Amphetamines Screen U Benzodiazepines Scrn Urine Cocaine Screen U Marijuana (THC) Screen Ethyl Alcohol Influenza Type A (PCR) Influenza Type B (PCR) RSV RNA Qual (PCR) SARS-CoV-2 RNA (RT-PCR) Blood Type O Positive Antibody Screen NEGATIVE Crossmatch See Detail 08/19/23 05:11 WBC 5.4 RBC 2.69 L Hgb 7.7 L Hct 21.7 L MCV 80.7 MCH 28.6 MCHC 35.5 RDW 17.5 H Plt Count 157 L MPV 9.2 L Immature Gran % (Auto) Neut % (Auto) Lymph % (Auto) [place] % (Auto) Eos % (Auto) Baso % (Auto) Lymph # (Auto) [place] # (Auto) Eos # (Auto) Baso # (Auto) Abs Immat Gran (auto) Absolute Neuts (auto) Absolute Nucleated RBC 0.000 Nucleated RBC % (auto) 0.0 Sodium 137 Potassium 5.0 Chloride 113 H Carbon Dioxide 20 L Anion Gap 9 L BUN 15 Creatinine 0.99 Estim Creat Clear Calc 101.9 Estimated GFR > 60 Random Glucose 109 Calcium 8.3 L Magnesium Total Bilirubin AST ALT Alkaline Phosphatase Ammonia Troponin I High Sens B-Natriuretic Peptide Total Protein Albumin Lipase Urine Color Urine Appearance Urine pH Ur Specific [place] Urine Protein Urine Glucose (UA) Urine Ketones Urine Blood Urine Nitrite Ur Leukocyte Esterase Urine RBC Urine WBC Ur Squamous Epith Cells Urine Bacteria Hyaline Casts Urine Opiates Screen Ur Buprenorphine Scrn Ur Oxycodone Screen Urine Methadone Screen Urine Fentanyl Screen Ur Barbiturates Screen Ur Phencyclidine Scrn Ur Amphetamines Screen U Benzodiazepines Scrn Urine Cocaine Screen U Marijuana (THC) Screen Ethyl Alcohol Influenza Type A (PCR) Influenza Type B (PCR) RSV RNA Qual (PCR) SARS-CoV-2 RNA (RT-PCR) Blood Type Antibody Screen Crossmatch Airway Mallampati Class: III TM Dist: >3cm Neck ROM: Full Heart: RRR Lungs: CTA Assessment and Plan Assessment Anesthesia Assessment: Anesthesia Plan Discussed Final Anesthetic Review Family History of Problems with Anesthesia: No History of Problems with Anesthesia: No NPO: Yes ASA Class: III and Emergency Final Preanesthetic Review: Meds/Allgs Chart Reviewed, Consent Obtained/Reviewed and Anes Risks/Benef Reviewed Patient Risk: Intermediate Procedure Risk: Low Anesthetic Plan Anesthetic Plan: MAC: Disposition: Standard PACU
--- NOTE | 2023-08-19 07:39 | P.OP_ITS ---
Operative Note Operative Note Date of Service: 08/19/23 Narrative: FLEXIBLE TRANSORAL UPPER GASTROINTESTINAL ENDOSCOPY AND COLONOSCOPY TILL CECUM WITH ARGON PLASMA COAGULATION (APC) OF COLONIC AVMS Pre-op diagnosis: acute on chronic anemia, cirrhosis Post-op diagnosis: Portal gastropathy, bariatric surgery status (? sleeve gastrectomy with single anastomosis duodeno-ileal bypass) Colonic AVMs, hemorrhoids Endoscopist:? Murtaza Funk MD Anesthesia:?MAC UPPER ENDOSCOPY Consent: Indications for the procedure and potential complications of bleeding, perforation, reaction to medications and missed diagnosis were discussed with the patient and informed consent was obtained. Instrument: Olympus GIF H 190 mid size upper endoscope Monitoring: Vital signs and clinical assessment, continuous EKG monitoring, Pulse oximetry, Carbon Dioxide monitoring and blood pressure monitoring were done throughout the procedure. Procedure: The patient was placed in the left lateral decubitis position and pre-procedure medications were administered and a bite block was placed. The endoscope was inserted into the mouth and advanced under direct vision to the third part of duodenum. A careful inspection was made as the upper endoscope was withdrawn including a retroflexed examination of the proximal stomach; Findings and interventions are described below. Findings: Larynx: Normal Esophagus: GE junction at 40 cms. Stomach: Mosaic appearance of the gastric pouch consistent with moderate portal hypertensive gastropathy. Grade 2 flap valve on retroflexed examination of the cardia. Duodenum: Duodeno- ileal anastomosis at 55 cm with a short blind limb. Normal efferent loop Grreen bile and no blood seen in the UGI tract during EGD Intervention: None COLONOSCOPY PROCEDURE NOTE Instrument: Olympus CF H 190 L variable stiffness adult colonoscope Monitoring: Vital signs and clinical assessment, intermittent blood pressure monitoring, continuous EKG monitoring, Pulse oximetry and Carbon Dioxide monitoring were done throughout the procedure. Please see anesthesia flowsheet. Colon withdrawl time was 25 minutes. Procedure: The patient was placed in the left lateral decubitis position and pre-procedure medications were administered. After a digital rectal examination of the ano-rectum, the video colonoscope was inserted into the rectum and advanced through the colon to the cecum. The colonoscope was slowly withdrawn in a retrograde panoramic fashion and the colon mucosa was carefully examined including a retroflexed view of the rectum. Findings and interventions are described below. Procedure Difficulty: Colon was long and tortuous and there was some loop formation. LLQ pressure was applied to intubate the ascending colon Findings: Terminal Ileum: Not evaluated Cecum: Normal Ascending Colon: Four 7 to 10 mm non-bleeding AVMs in the right colon - ablated with APC. Transverse Colon: Normal Descending Colon: Normal Sigmoid Colon: A 7-8 mm non-bleeding AVM - ablated with APC Rectum: Normal Ano-rectum: Moderate non-bleeding internal hemorrhoids Colon preparation: Good after copious irrigation. [place] Bowel Preparation Scale Right colon; 2 Transverse colon: 2 Left colon; 2 (0 = Unprepared colon segment with mucosa not seen due to solid stool that cannot be cleared. 1 = Portion of mucosa of the colon segment seen, but other areas of the colon segment not well seen due to staining, residual stool and/or opaque liquid. 2 = Minor amount of residual staining, small fragments of stool and/or opaque liquid, but mucosa of colon segment seen well. 3 = Entire mucosa of colon segment seen well with no residual staining, small fragments of stool or opaque liquid) Impression and Post Procedure Diagnosis: Endoscopy Findings: ESOPHAGUS: STOMACH: DUODENUM: Colonoscopy Findings: No polyps were detected Four 7 to 10 mm non-bleeding AVMs in the right colon - ablated with APC. Moderate non-bleeding hemorrhoids on retroflexed exam. Acute on chronic anemia likely multifactorial - a combination of slow GI blood loss from colonic AVMs, and low grade hemolysis associated with chronic liver disease. Of note past iron studies in 08/2022 were consistent with anemia of chronic disease. Plan: 1. Transfuse one additional unit of PRBC and monitor H & H twice daily 2. Repeat Colonoscopy in 10 years. 3. Pt is scheduled for a FU appt with Dr Mena on 08/29/23. Above findings were reviewed with the patient.
--- NOTE | 2023-08-19 09:12 | PC.NURSE ---
JUDITH NGUYEN FOR 614. PHONE CALL TO RITA ALLEN, AT [phone] SPOKE TO HER REQUESTING AVILABILITY AT THIS PHONE NUMBER APPROX [id number] , SHE VERBALIZED SHE WOULD BE AVAILABLE AT THIS NUMBER. PT NOTED TO BE A&O X3 IN PREOP. HCP UNAVAILABLE AT THAT NUMBER FOR CONSENT WITH ANESTHESIA AND DR. GARCIA. PER DR. Ozzie GANDHI AND DR CINDY GUEVARA TO HAVE PT SIGN (HX OF HEPATIC ENCEPHALOPATHY BUT HAS BEEN RECEIVING LACTULOSE. LAST DOSE LAST PM. PT SIGNED CONSENT.
--- NOTE | 2023-08-19 09:30 | PC.NURSE ---
PT HAS RETURNED TO THE OVERFLOW UNIT VIA STRETCHER. RN TO RN REPORT RECEIVED FROM GARRY COLVIN. PT'S SISTER IS AT BEDSIDE. PT IS USING THE COMMODE. SISTER STATES THAT SHE WILL HELP PT WITH HIS ADL'S.
--- NOTE | 2023-08-19 10:30 | PC.NURSE ---
PT IS A/O X 4 NO SOB/MACHO NOTED SPEAKS IN FULL SENTENCES. PT IS IN GOOD SPIRITS. SISTER AT BEDSIDE. PT R LOWER EXT IS SWOLLEN. SISTER STATES THAT R LOWER EXT SWELLING HAS IMPROVED ALOT. PT/SISTER AWARE OF PLAN OF CARE FOR TRANSFUSING OF ONE UNIT OF RBC PER MD. WILL CONTINUE TO MONITOR.
[2023-08-19] MEDS: Omeprazole 40 MG CAPSULE.DR PO (10:44)
[2023-08-19] MEDS: Zinc Sulfate 220 MG CAPSULE PO (10:45)
[2023-08-19] MEDS: Multivitamin TABLET 1 TAB PO (10:45)
[2023-08-19] MEDS: 0.9 % Sodium Chloride Flush 3 ML SYRINGE IVFLUSH ×2 (10:45→17:50)
[2023-08-19] MEDS: Thiamine HCL 100 MG TABLET PO (10:45)
[2023-08-19] MEDS: Lidocaine 4 % Patch ADH..PATCH 1 PATCH TRANSDERMA ×2 (10:45→10:47)
[2023-08-19] MEDS: rifAXIMin 550 MG TABLET PO ×2 (10:45→20:07)
[2023-08-19] MEDS: Lactulose 20 GM/30 ML SOLUTION PO ×4 (10:46→20:07)
--- NOTE | 2023-08-19 12:00 | P.PNIM_ITS ---
Subjective Subjective Date of Service: 08/19/23 Interval History: Seen and evaluated today Had EGD and Colonoscopy Hb dropped to 7.7 will need more transfusion more alert and interactive Review of Systems Review of Systems: Yes all other systems are reviewed and are negative Physical Exam 2 Vital Signs: Vital Signs: Last Vital Signs Temp 98 F 08/19/23 11:58 Pulse 63 08/19/23 11:58 Resp 16 08/19/23 11:58 BP 103/67 08/19/23 11:58 Pulse Ox 95 08/19/23 10:04 O2 Del Method Room Air 08/19/23 10:04 O2 Flow Rate 6 08/19/23 09:00 BMI result Body Mass Index 31.0 Const: Other: Constitutional : interactive, not in distress Cardiovascular : no JVP, bilateral lower extremity edema Respiratory : bilateral chest movement, not in resp distress Gastrointestinal: soft, lax, Non tender Skin : Warm, Dry Neurological : Alert & oriented , No focal deficit Objective Data Active Medications Acetaminophen (Acetaminophen 325 Mg Tablet) 650 mg PO Q6H PRN PRN Reason: Pain, Mild (Pain Scale 1-3) Last Admin: 08/18/23 16:17 Dose: 650 mg Documented By: LYDIA Lactulose (Lactulose 20 Gm/30 Ml Solution) 20 gm PO QID [facility] Last Admin: 08/19/23 10:46 Dose: 20 gm Documented By: CHRIS Lidocaine (Lidocaine 4 % Patch Adh..Patch) 1 patch TRANSDERMA DAILY [facility] [place]; Protocol Last Admin: 08/19/23 10:45 Dose: 1 patch Documented By: CHRIS Lidocaine (Lidocaine 4 % Patch Adh..Patch) 1 patch TRANSDERMA DAILY [facility] [place]; Protocol Last Admin: 08/19/23 10:47 Dose: 1 patch Documented By: CHRIS Melatonin (Melatonin 3 Mg Tablet) 6 mg PO BEDTIME PRN PRN Reason: Insomnia Last Admin: 08/19/23 01:05 Dose: 6 mg Documented By: MAGDALENE Multivitamins/Vitamin C (Multivitamin Tablet) 1 tab PO DAILY [facility] [place] Last Admin: 08/19/23 10:45 Dose: 1 tab Documented By: CHRIS Omeprazole (Omeprazole 40 Mg Capsule.Dr) 40 mg PO DAILY [facility] [place] Last Admin: 08/19/23 10:44 Dose: 40 mg Documented By: CHRIS Ondansetron HCl (Ondansetron Hcl 4 Mg/2 Ml Vial) 4 mg IVPUSH Q8H PRN PRN Reason: Nausea and Vomiting Pantoprazole Sodium (Pantoprazole Sodium 40 Mg/10 Ml Vial) 40 mg IVPUSH BID@0630,1630 [facility] [place] Last Admin: 08/19/23 06:06 Dose: 40 mg Documented By: MAGDALENE Rifaximin (Rifaximin 550 Mg Tablet) 550 mg PO BID [facility] [place] Last Admin: 08/19/23 10:45 Dose: 550 mg Documented By: CHRIS Sodium Chloride (0.9 % Sodium Chloride Flush 3 Ml Syringe) 3 ml IVFLUSH QSHIFT [facility] [place] Last Admin: 08/19/23 10:45 Dose: 3 ml Documented By: CHRIS Thiamine HCl (Thiamine Hcl 100 Mg Tablet) 100 mg PO DAILY [facility] [place] Last Admin: 08/19/23 10:45 Dose: 100 mg Documented By: CHRIS Zinc Sulfate (Zinc Sulfate 220 Mg Capsule) 220 mg PO DAILY [facility] [place] Last Admin: 08/19/23 10:45 Dose: 220 mg Documented By: CHRIS Labs 08/19/23 05:11 08/19/23 05:11 Labs: Laboratory Results - last 24 hr 08/18/23 08/18/23 08/19/23 08:20 19:04 05:11 MCV 81.4 80.7 MCH 28.6 28.6 MCHC 35.1 35.5 RDW 17.4 H 17.5 H Plt Count 153 L 157 L MPV 11.9 9.2 L Absolute Nucleated RBC 0.000 0.000 Nucleated RBC % (auto) 0.0 0.0 Anion Gap 9 L Estim Creat Clear Calc 101.9 Estimated GFR > 60 Random Glucose 109 Calcium 8.3 L Blood Type O Positive Antibody Screen NEGATIVE Crossmatch See Detail Assessment and Plan (1) Cirrhosis: Status: Acute (2) Hepatic encephalopathy: Status: Acute (3) Acute on chronic blood loss anemia: Status: Acute Plan This is a 57-year-old male with pertinent history of alcoholic cirrhosis, gastroesophageal reflux disease who was brought to the emergency department by his sister for evaluation of confusion. # Acute hepatic encephalopathy grade 2 in a patient with alcoholic cirrhosis Continue lactulose for 2-3 bowel movements per day Continue rifaximin and zinc supplementation furosemide [address] questioning possible splenorenal shunt in a patient with recurrent encephalopathy. might need a CT w contrast for further eval. consult with GI # Lymphadenopathy CT Abd reporting enlarged peripancreatic and bilateral inguinal lymph nodes, without significant change from 05/31/2023. These are nonspecific and may be reactive, though a malignant etiology could potentially have a similar appearance. # Acute on chronic normocytic anemia: To give 2nd unit of PRBCs Monitor H&H # Gastroesophageal reflux disease: On PPI # Alcohol use disorder on thiamine DVT prophylaxis: Mechanical Admit as inpatient and will require overnight hospital stay for close monitoring of mentation, evaluation of recurrent encephalopathy and monitoring blood level with blood transfusion. Quality Stroke Does the patient have a stroke diagnosis?: No VTE Prior VTE?: No VTE Risk Level:: Medical - moderate - high VTE Device Contraindication: Treatment Not Indicated VTE Drug Contraindication: N/A - Med Ordered
[2023-08-19] MEDS: Acetaminophen 325 MG TABLET 650 MG PO ×2 (14:00→20:07)
[2023-08-19] MEDS: Throat Lozenge, Medicated LOZENGE 1 LOZENGE MUCOUS MEM ×2 (14:01→20:08)
--- NOTE | 2023-08-19 14:04 | HO.POSTANES ---
Post Anesthesia Evaluation Post Anesthesia Evaluation Date of Service: 08/19/23 Vital Signs: Vital Signs Temp Pulse Resp BP Pulse Ox O2 Del Method O2 Flow Rate 08/19/23 12:17 98.3 F 65 16 101/63 08/19/23 11:58 98 F 63 16 103/67 08/19/23 10:04 97.9 F 80 18 113/60 95 Room Air 08/19/23 09:26 98.7 F 93 16 103/59 L 98 Room Air 08/19/23 09:15 98.7 F 107 H 16 97/54 L 96 Room Air 08/19/23 09:00 98.7 F 107 H 16 108/42 L 97 Simple Mask 6 08/19/23 06:48 97.7 F 61 18 110/69 96 Room Air 08/19/23 06:00 97.6 F 66 18 99/62 94 Room Air 08/19/23 02:05 18 Anesthesia: Monitored Mental Status: Awake Pain Control: Satisfactory Nausea/Vomiting: None Hydration: Adequate Anesthesia-Related Issues: No Anes. Related Issues
[2023-08-19 18:34] LABS: Hematocrit 23.3 % (42.0-52.0); Mean Corpuscular HGB Conc 34.3 g/dl (31.0-36.0); Mean Corpuscular Hemoglobin 28.6 pg (27.0-33.0); Mean Corpuscular Volume 83.2 fL (80.0-98.0); Mean Platelet Volume 9.9 fL (9.4-12.4); Platelet Count 160 X10*3/uL (160-400); Red Cell Distribution Width 18.1 % (11.0-16.0); White Blood Count 4.9 X10*3/uL (4.8-10.8)
[2023-08-20] MEDS: 0.9 % Sodium Chloride Flush 3 ML SYRINGE IVFLUSH ×2 (00:36→09:58)
[2023-08-20 03:32] VITALS: BP 100/65; PULSE 66; RESP 16; TEMP 36.8; O2SAT 96
[2023-08-20] MEDS: Pantoprazole Sodium 40 MG/10 ML VIAL IVPUSH (06:17)
[2023-08-20 06:33] LABS: Hematocrit 22.7 % (42.0-52.0); Hemoglobin 7.9 g/dl (14.0-18.0); Mean Corpuscular HGB Conc 34.8 g/dl (31.0-36.0); Mean Corpuscular Hemoglobin 29.2 pg (27.0-33.0); Mean Corpuscular Volume 83.8 fL (80.0-98.0); Mean Platelet Volume 9.9 fL (9.4-12.4); Platelet Count 156 X10*3/uL (160-400); Red Blood Count 2.71 X10*6/uL (4.60-5.80); Red Cell Distribution Width 18.2 % (11.0-16.0); White Blood Count 5.5 X10*3/uL (4.8-10.8)
[2023-08-20 06:43] LABS: Anion Gap 9 (12-20); Blood Urea Nitrogen 13 mg/dL (9-16); Calcium 8.4 mg/dL (8.4-10.2); Carbon Dioxide 20 mmol/L (22-29); Chloride 113 mmol/L (96-108); Creatinine Clr Calc Pharmacy 99.3; Estimated Glomerular Filt Rate > 60; Glucose Random 147 mg/dL (60-115); Potassium 4.8 mmol/L (3.3-5.1); Sodium 137 mmol/L (135-145)
[2023-08-20 07:20] VITALS: BP 111/70; PULSE 100; RESP 16; TEMP 36.6; O2SAT 97
[2023-08-20 08:57] LABS: Iron 100 mcg/dL (45-160); Percent Iron Saturation 80 % (15-50); Total Iron Binding Capacity 125 mcg/dL (228-428); Unsaturated Iron Binding < 25 ug/dL
[2023-08-20] MEDS: Multivitamin TABLET 1 TAB PO (09:52)
[2023-08-20] MEDS: Omeprazole 40 MG CAPSULE.DR PO (09:52)
[2023-08-20] MEDS: Thiamine HCL 100 MG TABLET PO (09:52)
[2023-08-20] MEDS: Zinc Sulfate 220 MG CAPSULE PO (09:52)
[2023-08-20] MEDS: Lactulose 20 GM/30 ML SOLUTION PO (09:52)
[2023-08-20] MEDS: rifAXIMin 550 MG TABLET PO (09:52)
[2023-08-20] MEDS: Lidocaine 4 % Patch ADH..PATCH 1 PATCH TRANSDERMA ×2 (09:52)
[2023-08-20] MEDS: Acetaminophen 325 MG TABLET 650 MG PO (10:40)
--- NOTE | 2023-08-20 10:45 | P.DS_ITS ---
DS: Providers Provider Date of Service: 08/20/23 Date of admission: 08/18/23 00:28 Primary care physician: Arin Nelson MD Consults: 08/18/23 06:33 Consult to Gastroenterology Routine Consulting Provider: Murtaza Funk Reason for consultation: hepatic encephalopathy ; anemia DS: Diagnosis Discharge Diagnosis (1) Cirrhosis: Status: Acute (2) Hepatic encephalopathy: Status: Acute (3) Acute on chronic blood loss anemia: Status: Acute DS: Summary Hospital Course Hospital Course: Admission note This is a 57-year-old male with pertinent history of alcoholic cirrhosis, gastroesophageal reflux disease who was brought to the emergency department by his sister for evaluation of confusion. Sister states that she has noticed confusion that has been ongoing for the past 2 days. Patient has been forgetting things over the last 2 days. He also was speaking to the sister about having bowel incontinence and cleaning himself but the sister stated that this never happened as she did not see any dirty linens and he would not be able to clean himself. Patient was talking to the knees and was not making sense. He also forgot phone numbers which was unlike him. She also noticed increased shaking on the day of presentation. Patient is compliant with home lactulose. States his last drink was in May 2023. No nausea, vomiting, abdominal pain. The sister states that patient stools may have been darker but she is unsure and no evidence of blood. No fever, chills, chest discomfort, palpitations, shortness of breath, changes in urinary habits In the emergency department, ammonia was found to be 109 Hospital course # Acute hepatic encephalopathy grade 2 in a patient with alcoholic cirrhosis Improved with lactulose QID with goal of 2-3 bowel movements per day as encephalopathy resolved. Continued rifaximin and zinc supplementation along with furosemide [address] questioning possible splenorenal shunt in a patient with recurrent encephalopathy but he had CT w contrast previously showing this abnormality back in June. # Abdominal Lymphadenopathy CT Abd reporting enlarged peripancreatic and bilateral inguinal lymph nodes, without significant change from 05/31/2023. These are nonspecific and may be reactive, though a malignant etiology could potentially have a similar ap pearance. To be followed with dr Mena as outpatient. # Acute on chronic normocytic anemia secondary to anemia of chronic disease and chronic blood loss anemia Had EGD and Colonoscopy done showing AVMs that was locally treated by dr Funk. Internal hemorroids that were not bleeding. Moderate hepatic hypertensin gastropathy with no evidence of varices. received 2 units of PRBCs with fair response as Hb remained around 8 with no reported bleeding. Discharge Plan Take Lactulose 3-4 times daily with goal of 2 bowel movements hold for diarrhea and can take extra doses for constipation Continue Omeprazole To follow with dr Mena as outpatient Time Attestation Discharge Coordination Time (in mins): 38 Quality: Safe Use of Opioids Does Pt have an Active Cancer Diagnosis on the Problem List?: No Quality: Stroke Does the patient have a stroke diagnosis?: No Physical Exam Vital Signs: Vital Signs: Last Vital Signs Temp 98 F 08/20/23 07:20 Pulse 100 08/20/23 07:20 Resp 16 08/20/23 07:20 BP 111/70 08/20/23 07:20 Pulse Ox 97 08/20/23 07:20 O2 Del Method Room Air 08/20/23 07:20 O2 Flow Rate 6 08/19/23 09:00 BMI result Body Mass Index 30.6 Const: Other: Constitutional : interactive, not in distress Cardiovascular : no JVP, bilateral lower extremity edema Respiratory : bilateral chest movement, not in resp distress Gastrointestinal: soft, lax, Non tender, mild ascites Skin : Warm, Dry Neurological : Alert & oriented , No focal deficit DS: Data Data Completed and Pending Completed studies during hospitalization [Text1]: Procedures Control Bleeding in Gastrointestinal Tract, Via Natural or Artificial Opening Endoscopic (07/03/23) Destruction of Stomach, Pylorus, Via Natural or Artificial Opening Endoscopic (07/03/23) Detoxification Services for Substance Abuse Treatment (05/31/23) Extirpation of Matter from Penis, Open Approach (09/11/22) Inspection of Lower Intestinal Tract, Via Natural or Artificial Opening Endoscopic (07/18/23) Inspection of Upper Intestinal Tract, Via Natural or Artificial Opening Endoscopic (05/31/23) Resection of Prepuce, External Approach (09/11/22) Transfusion of Nonautologous Platelets into Peripheral Vein, Percutaneous Approach (09/11/22) Transfusion of Nonautologous Red Blood Cells into Peripheral Vein, Percutaneous Approach (07/18/23) Labs on day of discharge: Laboratory Results - last 24 hr 08/18/23 08/19/23 08/20/23 08:20 18:25 05:43 WBC 4.9 5.5 RBC 2.80 L 2.71 L Hgb 8.0 L 7.9 L Hct 23.3 L 22.7 L MCV 83.2 83.8 MCH 28.6 29.2 MCHC 34.3 34.8 RDW 18.1 H 18.2 H Plt Count 160 156 L MPV 9.9 9.9 Absolute Nucleated RBC 0.000 0.000 Nucleated RBC % (auto) 0.0 0.0 Sodium 137 Potassium 4.8 Chloride 113 H Carbon Dioxide 20 L Anion Gap 9 L BUN 13 Creatinine 1.01 Estim Creat Clear Calc 99.3 Estimated GFR > 60 Random Glucose 147 H Calcium 8.4 Iron 100 TIBC 125 L % Saturation 80 H Unsat Iron Binding < 25 Blood Type O Positive Antibody Screen NEGATIVE Crossmatch See Detail Imaging Chest x-ray: Radiologist's impression: ITS Impressions Abdomen/Pelvis CT 08/18/23 01:22 IMPRESSION: 1. No new acute findings identified in the abdomen/pelvis. 2. Diffuse anasarca. 3. Redemonstrated findings of cirrhosis and portal hypertension along with suspected splenorenal shunt. 4. Redemonstrated enlarged peripancreatic and bilateral inguinal lymph nodes, without significant change from 05/31/2023. These are nonspecific and may be reactive, though a malignant etiology could potentially have a similar appearance. Discharge Plan Discharge Anticipated Discharge Date/Time: 08/20/23 10:34 Patient Disposition: Home Health Service Discharge Diagnosis: Hepatic encephalopathy Acute on chronic anemia Hemorroids Referrals: Andrew BAUTISTA [Outside] - 3-5 Days (resume services) Arin Nelson MD [Primary Care Provider] - 1 Week Discharge Medications: New lactulose 20 gram/30 mL Solution 20 g PO QID Qty: 3000 2RF Continued rifaximin 550 mg tablet 550 mg PO BID 90 Days Qty: 180 1RF acetaminophen [Tylenol Extra Strength] 500 mg tablet 500 mg PO QID PRN (Reason: pain) Qty: 60 1RF Rx Instructions: Pls do not take more than 4 tablets in 24h. thiamine mononitrate (vit B1) 100 mg Tablet 100 mg PO DAILY Qty: 90 0RF multivitamin [Daily-Sherry] Tablet 1 tab PO DAILY Qty: 90 0RF (DME) Ultra-Light Rollator Misc See Rx Instructions .Route Qty: 1 0RF Rx Instructions: As directed lidocaine 5 % adhesive patch,medicated 1 patch topical DAILY (DME) [place] [facility] [place] Rx Instructions .Route Qty: 1 0RF Rx Instructions: As directed omeprazole 40 mg Capsule,Delayed Release(Dr/Ec) 40 mg PO DAILY 56 Days Qty: 142 0RF melatonin 5 mg Tablet 10 mg PO BEDTIME PRN (Reason: Insomnia) zinc sulfate [Zinc-220] 50 mg zinc (220 mg) Capsule 220 mg PO DAILY 90 Days Qty: 396 0RF Ensure High Protein Liquid 1 ea PO BID 30 Days Qty: 43670 1RF furosemide 40 mg tablet 40 mg PO DAILY Qty: 90 0RF Hold Instructions: hold until follow up with GI on Tuesday Discontinued lactulose 10 gram/15 mL solution 30 ml PO Q4H PRN (Reason: Constipation) Discharge Orders: Discharge Order (Routine); Ordered 08/20/23 Ordered By: Jyothi Mcnally Diet: Low salt, high protein Activity on Discharge: As tolerated Stand Alone Forms: Patient Portal Discharge page Print Language: Hungarian Care Plan Goals: Read below Health Concerns: Read below Plan of Treatment: Read below Assessment: Take Lactulose 3-4 times daily with goal of 2 bowel movements hold for diarrhea and can take extra doses for constipation Continue Omeprazole To follow with dr Mena as outpatient
--- NOTE | 2023-08-20 11:00 | MHC.CM.PN ---
EMR reviewed. Per MD patient is medically cleared for dc home w/ family support and resumption of [facility] services. [facility] aware of dc. Sister is at bedside to transport home. RN aware.
--- NOTE | 2023-08-20 11:18 | HO.POSTANES ---
Post Anesthesia Evaluation Post Anesthesia Evaluation Date of Service: 08/20/23 Vital Signs: Vital Signs Temp Pulse Resp BP Pulse Ox O2 Del Method 08/20/23 07:20 98 F 100 16 111/70 97 Room Air 08/20/23 03:32 98.2 F 66 16 100/65 96 Room Air Anesthesia: Monitored Mental Status: Awake Pain Control: Satisfactory Nausea/Vomiting: None Hydration: Adequate Anesthesia-Related Issues: No Anes. Related Issues
== END 2023-08-20 13:32 | disposition home health service (06) | DRG 254 ==
LOC: HO.ED 23:53 → HO.EDOVER 08-18 00:40 → HO.S3 08-19 14:12
PROVIDERS: Internal Medicine Gastroenterology; Nurse Practitioner Family; Admitting Provider Student in an Organized Health Care Education/Training Program; Emergency Provider Emergency Medicine Emergency Medical Services; PCP Internal Medicine; Visit Provider Student in an Organized Health Care Education/Training Program
PROC: 0D5K8ZZ Destruction of Ascending Colon, Via Natural or Artificial Opening Endoscopic (ICD-10-PCS; principal; 2023-08-19 07:30)
DX: K55.20 Angiodysplasia of colon without hemorrhage (principal); K76.82 Hepatic encephalopathy; K76.6 Portal hypertension; Q26.8 Other congenital malformations of great veins; D62 Acute posthemorrhagic anemia; D63.8 Anemia in other chronic diseases classified elsewhere; K70.30 Alcoholic cirrhosis of liver without ascites; K64.8 Other hemorrhoids; K21.9 Gastro-esophageal reflux disease without esophagitis; Z20.822 Contact with and (suspected) exposure to COVID-19; K31.89 Other diseases of stomach and duodenum; Z87.891 Personal history of nicotine dependence; Z98.84 Bariatric surgery status; Z79.899 Other long term (current) drug therapy
CPT/HCPCS: 0241U; 36415; 74177; 80048; 80053; 80307; 81001; 82140; 83540; 83690; 83735; 83880; 84484; 85025; 85027; 86850; 86900; 86901; 86923; 92950; 93005; 99285; C9113; J1596; J2354; J2371; J2704; J3010; P9016; Q9967

== ENCOUNTER → 2023-08-17 21:14 | Outpatient (BNV) | payer BC, SELFPAY | PROVIDERS: Admitting Provider Student in an Organized Health Care Education/Training Program; Emergency Provider Emergency Medicine Emergency Medical Services; PCP Internal Medicine; Visit Provider Internal Medicine | DX: I45.10 Unspecified right bundle-branch block (principal) | CPT/HCPCS: 93010 ==

== ENCOUNTER → 2023-08-18 00:28 | Outpatient (BNV) | payer BC, SELFPAY | PROVIDERS: Admitting Provider Student in an Organized Health Care Education/Training Program; Emergency Provider Emergency Medicine Emergency Medical Services; PCP Internal Medicine; Visit Provider Internal Medicine Gastroenterology | DX: D64.9 Anemia, unspecified (principal); K76.82 Hepatic encephalopathy; K74.60 Unspecified cirrhosis of liver | CPT/HCPCS: 43235; 45388; 99222; 99232 ==

== ENCOUNTER → 2023-08-18 00:28 | Outpatient (BNV) | payer BC, SELFPAY | PROVIDERS: Admitting Provider Student in an Organized Health Care Education/Training Program; Emergency Provider Emergency Medicine Emergency Medical Services; PCP Internal Medicine; Visit Provider Student in an Organized Health Care Education/Training Program | DX: K74.60 Unspecified cirrhosis of liver (principal); K76.82 Hepatic encephalopathy; D62 Acute posthemorrhagic anemia | CPT/HCPCS: 99222; 99233; 99239; 99499 ==

== ENCOUNTER 2023-08-29 09:31 | Outpatient (AMB) | payer BC, SELFPAY ==
--- NOTE | 2023-08-29 09:46 | A.OFFVIS_ITS ---
Vital Signs 08/29/23 09:56 Height 5 ft 11 in Weight 220 lb BMI 30.7 BP 103/58 L Blood Pressure Location Lt brachial Position Sitting Pulse 70 Intake Visit Reasons: 4 week Intake Note: Patient is seen in office for 4 weeks follow up visit. 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 Pt was seen in consultation in hospital on 05/31/23 (anemia/GIB) and 06/16/23 (HE). Here accompanied by his sister who is very involved in his care and in fact advocated to move him from [place] (where he was living by himself) to her house in [place]. Main issue is daytime sleepiness with limited night time sleep. Otherwise, reports good energy, trying to keep up with activity levels. Has been eating good - though not restricting salt and red meat as much as he should. No abd pain, N,V, change in bowel habits. Sober from etOH since May 2023. 07/25/23: Comes in for post-hospitalisation follow up. Since May he has had at least 4 hospitalisations mainly for worsening HE. Reports that had not been taking Rifaximin at home but now has with since discharge. Compliant with lactulose. Also underwent [place] most recent hospitalisation as was becoming logistically to coordinate as OP due to his frequent admissions. This was unfortunately poor prep and inadequate for polyp detection, but no mucosal abnormality or large masses were noted. Patient also worsening fatigue, states that is also this time sitting down or recliner. Sister also mentions but he seems more short of breath at rest. Recent echo normal. No hepatohydrothorax on chest x-ray 07/18/2023 08/29/23: Admitted to hospital earlier this month for worsening HE and anemia. s/p EGD and colo - R colon AVMS s/p APC. (Dr Funk) Currently, reports mental status is good. However noted to be more sleepy during the day. This is despite taking lactulose, rifaximin and zinc. Patient and sister confirm at least 3-4 soft/mushy bowel movements every day. Most recent CT abdomen and pelvis suggests possible left-sided splenorenal shunt. Current meds: Lactulose 20ml 4 times a day Rifaximin 550 BID Zinc furosemide 40 once daily Supplemental shakes not covered by his insurance. [facility] Medical History Cirrhosis Anemia Abdominal wall swelling Hyperammonemia Hepatic steatosis Diarrhea resulting from infection of the bowel mucosa Liver lesion Substance use Alcohol use disorder Anemia Chronic kidney disease Alcohol dependence Surgical History Hx of colonoscopy Hx of esophagogastroduodenoscopy History of urologic surgery H/O varicose vein stripping S/P bariatric surgery Social History Household Members: Other Household Members Other:: sister Housing: Apartment Do you presently have visiting nurse or other home services: Yes ([facility]) Alcohol intake: former Patient Tobacco Use Status: Former Tobacco user Quit Date: 05/30/23 Tobacco use type: Cigarette Second Hand Smoke Exposure: No Substance Use Type: Crack/Cocaine and Marijuana Advance Directives Date on File: 06/08/23 service: No Current occupational status: employed Review of Systems Const All systems reviewed & are unremarkable except as noted in HPI and below Physical Exam Vital Signs: Last Vital Signs Pulse 70 08/29/23 09:56 BP 103/58 L 08/29/23 09:56 BMI result Body Mass Index 30.7 No acute distress Malnourished, bitemporal wasting Abdomen soft, nontender, nondistended Lower extremity edema R>L No asterixis Assessment & Plan Assessment & Plan (1) Decompensated hepatic cirrhosis: Code(s): K72.90 - Hepatic failure, unspecified without coma; K74.60 - Unspecified cirrhosis of liver Category: Medical (2) Alcohol use disorder: Code(s): F10.90 - Alcohol use, unspecified, uncomplicated Category: Medical (3) Acute hepatic encephalopathy: Code(s): K76.82 - Hepatic encephalopathy Category: Medical (4) Hyperkalemia: Code(s): E87.5 - Hyperkalemia Category: Medical (5) Shortness of breath: Code(s): R06.02 - Shortness of breath Category: Medical Plan MELD-Na 18 Child Wiseman Class B Congratulated on sobriety x 3 months! Encouraged compliance with meds including rifaximin and lactulose. Advised to take lactulose preferentially during daytime, so that he has not waking up at nighttime to go to the bathroom. 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 Will refer to IR for further evaluation and possible embolization. No evidence of varices or ascites. Advised on increasing protein intake with food leslie BCAA. 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 For his worsening shortness of breath, does not appear to have any evidence CHF, or pulmonary edema or pleural effusion on testing and clinical assessment. PFT's pending. Plan: - covert encephalopathy based on hx. Has had at least 3 admission for HE in the past [address] [place] communication sent to IR for ? splenorenal shunt emboliza tion at [facility] vs [facility] [place]. -Advised use of lactulose for goal 2-3BMs per day. Rifaximin 550 b.i.d. Zinc supplementation. OK to increase lactulose for goal 3-4 BMs for worsening confusion but to call office if persists despite this >1 day. - no large volume ascites on exam today. Continue furosemide 40mg PO. - No varices on EGD 08/2023. Next EGD in 2024. - HCC screening due in 11/2023 - Counseled on nutrition including protein intake. Add night time snack. 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 Pt to check assistance re protein shakes with his PCP. - PFT's pending. - No NSAIDs. - Marked 3 months of sobriety as of August 27. Will initiate transplant eval referral. - Repeat colo for asymptomatic CRC screening in 7-10 years - Hematology referral for anemia ? hemolysis. Follow up 4 weeks. Repeat MELD labs to be done prior to office visit. Orders: Orders Complete Blood Count no Diff 3 Weeks K72.90 - Hepatic failure, unspecified without coma, K74.60 - Unspecified cirrhosis of liver Comprehensive Met. Panel 3 Weeks K72.90 - Hepatic failure, unspecified without coma, K74.60 - Unspecified cirrhosis of liver Prothrombin Time INR 3 Weeks K72.90 - Hepatic failure, unspecified without coma, K74.60 - Unspecified cirrhosis of liver Vitamin D 25-OH Total 3 Weeks K72.90 - Hepatic failure, unspecified without coma, K74.60 - Unspecified cirrhosis of liver Ferritin 3 Weeks K72.90 - Hepatic failure, unspecified without coma, K74.60 - Unspecified cirrhosis of liver Vitamin B12 and Folate 3 Weeks K72.90 - Hepatic failure, unspecified without coma, K74.60 - Unspecified cirrhosis of liver Referrals Gastroenterology Referral K72.90 - Hepatic failure, unspecified without coma, K74.60 - Unspecified cirrhosis of liver Patient Instructions: Please give lactulose during daytime. 30ml to be repeated every 2-3 hours until pt has 2-3 bowel movements. If you notice increasing confusion, can increase lactulose for goal of 4-5 bowel movements. If no improvement in 1-2 days with this, pls call our office or go to ER. Please bring medications at every visit. Lab work due in 4 weeks - pls get this done 1-2 days before the next appointment. Coding Level of Care Code Est Pt Level 5 (94365) Diagnoses Decompensated hepatic cirrhosis K72.90; K74.60 Alcohol use disorder F10.90 Acute hepatic encephalopathy K76.82 Hyperkalemia E87.5 Shortness of breath R06.02
[2023-08-29 09:56] VITALS: BP 103/58; PULSE 70; BMI 30.7
== END 2023-08-29 10:30 | disposition home or self-care (01) ==
PROVIDERS: PCP Registered Nurse; Visit Provider Internal Medicine
DX: K72.90 Hepatic failure, unspecified without coma (principal); K74.60 Unspecified cirrhosis of liver; F10.90 Alcohol use, unspecified, uncomplicated; K76.82 Hepatic encephalopathy; E87.5 Hyperkalemia; R06.02 Shortness of breath
CPT/HCPCS: 99214

== ENCOUNTER → 2023-08-29 09:31 | Outpatient (BNVA) | payer BC, SELFPAY | PROVIDERS: PCP Registered Nurse; Visit Provider Internal Medicine ==

== ENCOUNTER 2023-09-02 23:30 | Inpatient (IN) | payer BC, SELFPAY ==
--- NOTE | ~2023-09-02 | CT_ITS ---
EXAMINATION: CT CHEST WITH CONTRAST CLINICAL INFORMATION: Cough. Chest pain. COMPARISON: 06/16/2023. 08/18/2023 TECHNIQUE: Multidetector volumetric CT imaging of the chest, abdomen and pelvis was obtained after the administration of 85 mL of Omnipaque 350 intravenous contrast without immediate adverse reactions. Axial MIP volume rendering provided. Sagittal and coronal reformatted images were obtained. This CT examination was performed using dose optimization techniques as appropriate, variously including the following: *Automated exposure control *Adjustment of mA and/or kV according to patient size (this includes techniques or standardized protocols for targeted exams where dose is matched to indication/reason for exam; i.e. 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 LUNGS: There is linear consolidation at the lung bases. The lungs are otherwise clear. MEDIASTINUM: The heart is within normal limits for size. There is no pericardial effusion. There is mild coronary calcification. The aorta is unremarkable. There is no significant lymph node enlargement. PLEURA: There is no pleural effusion. No pleural mass or thickening. AXILLA: No lymphadenopathy. LIVER, GALLBLADDER, AND BILIARY TREE: Liver is slightly irregular in contour and relatively small in size. No focal liver lesions are seen. There is no intrahepatic biliary duct dilatation. There has been a prior cholecystectomy. PANCREAS: Unremarkable. SPLEEN: Spleen is mildly enlarged measuring up to 15 cm ADRENAL GLANDS: Unremarkable. KIDNEYS AND URETERS: The kidneys are normal in size, shape, and attenuation. There are bilateral parapelvic cysts. There is no hydronephrosis. No renal calculi are seen. BLADDER: Unremarkable. GASTROINTESTINAL TRACT: There is mild right colonic thickening. ABDOMINAL WALL: There is significant soft tissue anasarca. There are multiple ventral hernias containing fat. LYMPH NODES: Stable peripancreatic lymph nodes are again seen. Stable inguinal lymph nodes are also seen. VASCULAR: Unremarkable. PELVIC VISCERA: Unremarkable. OSSEOUS STRUCTURES: There is a stable T11 compression fracture. There is also a stable L2 compression fracture. CT/CT abdomen pelvis w IV con IMPRESSION: 1. Linear consolidation at the lung bases likely representing atelectasis. 2. Cirrhotic-appearing liver. Mild splenomegaly. 3. Mild right colonic wall thickening possibly portal colopathy 4. Significant soft tissue anasarca. 5. Stable T11 and L2 compression fractures. 6. Multiple ventral hernias containing fat. Fleischner guidelines were followed.
--- NOTE | ~2023-09-02 | CT_ITS ---
EXAMINATION: CT CHEST WITH CONTRAST CLINICAL INFORMATION: Cough. Chest pain. COMPARISON: 06/16/2023. 08/18/2023 TECHNIQUE: Multidetector volumetric CT imaging of the chest, abdomen and pelvis was obtained after the administration of 85 mL of Omnipaque 350 intravenous contrast without immediate adverse reactions. Axial MIP volume rendering provided. Sagittal and coronal reformatted images were obtained. This CT examination was performed using dose optimization techniques as appropriate, variously including the following: *Automated exposure control *Adjustment of mA and/or kV according to patient size (this includes techniques or standardized protocols for targeted exams where dose is matched to indication/reason for exam; i.e. extremities or head) *Use of iterative reconstruction technique DLP: 1478 mGy-cm FINDINGS: WING SCORER: Unremarkable. LUNGS: There is linear consolidation at the lung bases. The lungs are otherwise clear. MEDIASTINUM: The heart is within normal limits for size. There is no pericardial effusion. There is mild coronary calcification. The aorta is unremarkable. There is no significant lymph node enlargement. PLEURA: There is no pleural effusion. No pleural mass or thickening. AXILLA: No lymphadenopathy. LIVER, GALLBLADDER, AND BILIARY TREE: Liver is slightly irregular in contour and relatively small in size. No focal liver lesions are seen. There is no intrahepatic biliary duct dilatation. There has been a prior cholecystectomy. PANCREAS: Unremarkable. SPLEEN: Spleen is mildly enlarged measuring up to 15 cm ADRENAL GLANDS: Unremarkable. KIDNEYS AND URETERS: The kidneys are normal in size, shape, and attenuation. There are bilateral parapelvic cysts. There is no hydronephrosis. No renal calculi are seen. BLADDER: Unremarkable. GASTROINTESTINAL TRACT: There is mild right colonic thickening. ABDOMINAL WALL: There is significant soft tissue anasarca. There are multiple ventral hernias containing fat. LYMPH NODES: Stable peripancreatic lymph nodes are again seen. Stable inguinal lymph nodes are also seen. VASCULAR: Unremarkable. PELVIC VISCERA: Unremarkable. OSSEOUS STRUCTURES: There is a stable T11 compression fracture. There is also a stable L2 compression fracture. CT/CT chest w IV con IMPRESSION: 1. Linear consolidation at the lung bases likely representing atelectasis. 2. Cirrhotic-appearing liver. Mild splenomegaly. 3. Mild right colonic wall thickening possibly portal colopathy 4. Significant soft tissue anasarca. 5. Stable T11 and L2 compression fractures. 6. Multiple ventral hernias containing fat. Fleischner guidelines were followed.
--- NOTE | ~2023-09-02 | US_ITS ---
EXAMINATION: US VENOUS ULTRASOUND WITH DOPPLER LOWER EXTREMITY, RIGHT CLINICAL INFORMATION: Increased pain and swelling COMPARISON: Ultrasound venous lower extremity right from 06/01/2023 TECHNIQUE: Ultrasound of the deep veins is performed from the hip to the calf with compression sonography and color and pulse Doppler assessment. Spectral analysis with color-flow imaging is performed. FINDINGS: There is normal venous compression and respiratory variation and augmented flow. The visualized common femoral vein, superficial femoral vein, profunda femoral vein, popliteal vein, and the trifurcation region shows no evidence of deep venous thrombosis. There is no significant popliteal fossa cyst. Contralateral common femoral vein is patent. If the patient's symptoms persist, followup ultrasound in 5 days 7 days might be of value to exclude proximal propagation from a non-visualized calf vein. Redemonstrated enlarged right groin lymph node measuring 2.0 cm in short axis. Subcutaneous edema along the right calf. US/US venous duplex LE RT IMPRESSION: 1. No DVT demonstrated in the right lower extremity. 2. Redemonstrated enlarged right groin lymph node measuring 2.0 cm in short axis. 3. Subcutaneous edema along the right calf.
--- NOTE | ~2023-09-02 | XR_ITS ---
EXAMINATION: XR CHEST CLINICAL INFORMATION: Fever. COMPARISON: 07/18/2023 TECHNIQUE: Frontal view of the chest was obtained. FINDINGS: The study is significantly limited due to very low lung volumes. The cardiomediastinal silhouette is grossly stable. There is stable lingular atelectasis or scarring. Lungs are otherwise clear. There are no definitive definitive significant pleural effusions. The bony structures and soft tissues are unremarkable. XR/XR chest 1V IMPRESSION: The study is significantly limited due to very low lung volumes. There is stable lingular atelectasis or scarring. The well-visualized lung koo are otherwise clear.
[2023-09-02 23:36] VITALS: BP 136/66; PULSE 110; O2SAT 96
[2023-09-02 23:46] VITALS: BP 102/44; PULSE 112; RESP 28; TEMP 39.9; O2SAT 95; BMI 30.6
--- NOTE | 2023-09-02 23:51 | ECG_ITS ---
Test Reason : weakness Blood Pressure : / mmHG Vent. Rate : 112 BPM Atrial Rate : 113 BPM P-R Int : 118 ms QRS Dur : 128 ms QT Int : 376 ms P-R-T Axes : 013 -37 031 degrees QTc Int : 513 ms Sinus tachycardia with Premature ventricular complexes Left axis deviation Right bundle branch block Abnormal ECG When compared with ECG of 17-AUG-2023 21:14, Vent. rate has increased Referred By: Rica Plascencia Electronically Signed By:JACE MOY MD
[2023-09-03] VITALS (47 sets, daily range): BP systolic 74–119; BP diastolic 31–68; PULSE 68–203; RESP 16–71; TEMP 36.9–38.7; O2SAT 94–99; BMI 30.7
--- NOTE | 2023-09-03 00:10 | ED.WEAKNESS ---
HPI - Weakness General Chief complaint: Weakness Stated complaint: not feeling well, diaphoretic, weakness SOB Time Seen by Provider: 09/02/23 23:32 Source: patient and EMS Mode of arrival: EMS Limitations: no limitations History of Present Illness HPI Narrative: Patient comes to the emergency room complaining of weakness and chills. According to the patient, all of his symptoms started approximately an hour prior to arrival. Patient states that earlier today he had a few episodes of vomiting. Also patient states that he feels weak. Patient denies any chest pain or shortness of breath, no abdominal pain, no UTI symptoms. Patient noted to be coughing, states it started couple of days ago. Patient states it has a dry cough. Related Data Home Medications ?Medication ?Instructions ?Recorded ?Confirmed melatonin 5 mg tablet 10 mg PO BEDTIME PRN Insomnia 07/18/23 08/18/23 lidocaine 5 % topical patch 1 patch topical DAILY 08/18/23 08/18/23 Previous Rx's ?Medication ?Instructions ?Recorded walker #1 ea 09/21/22 multivitamin (Daily-Sherry tablet) 1 tab PO DAILY #90 tabs 06/07/23 thiamine mononitrate (vit B1) 100 100 mg PO DAILY #90 tabs 06/07/23 mg tablet walker (Ultra-Light Rollator misc) #1 ea 06/07/23 furosemide 40 mg tablet 40 mg PO DAILY #90 tabs 06/28/23 omeprazole 40 mg capsule,delayed 40 mg PO DAILY 8 weeks #142 caps 07/06/23 release rifaximin 550 mg tablet 550 mg PO BID 90 days #180 tabs 07/14/23 zinc sulfate 50 mg zinc (220 mg) 220 mg (4.4 x 50 mg zinc (220 mg)) 07/22/23 capsule (Zinc-220) PO DAILY 90 days #396 caps food supplemt, lactose-reduced 1 ea PO BID 30 days #14,220 mL 07/25/23 (Ensure High Protein oral liquid) acetaminophen 500 mg tablet 500 mg PO QID PRN pain #60 tabs 07/29/23 (Tylenol Extra Strength) lactulose 20 gram/30 mL oral 20 g (30 mL) PO QID #3,000 mL 08/20/23 solution trazodone 50 mg tablet 25 mg (1/2 x 50 mg) PO BEDTIME PRN 08/20/23 insomnia #14 tabs Allergies Allergy/AdvReac Type Severity Reaction Status Date / Time No Known Allergies Allergy Verified 09/02/23 23:48 Review of Systems Review of Systems: Constitutional : No Weight loss, No Fever, complaining of Chills, No Night Sweats, complaining of weakness, generalized malaise ENT/Mouth : No Hearing loss, No Ear Pain, No Nasal Congestion, No Sinus Pain, No Hoarseness, No sore throat, No Rhinorrhea, No Swallowing Difficulty Eyes: No Eye Pain, No Swelling, No Redness, No Foreign Body, No Discharge, No Vision Changes Cardiovascular : No Chest Pain, No SOB, No Dyspnea on Exertion, No Orthopnea, No Edema, No Palpitations Respiratory : Complaining of dry Cough, No Sputum, No Wheezing, No Smoke Exposure, No Dyspnea Gastrointestinal : No Nausea, No Vomiting, No Diarrhea, No Constipation, No abdominal Pain, No Hematochezia, No Melena Genitourinary : no irregular bleeding, No Dysuria, No Urinary Frequency, No Hematuria, No Urinary Incontinence, No Urgency, No Flank Pain, No Urinary Flow Changes, No Hesitancy Musculoskeletal : No joint pain, No Myalgias, No Joint Swelling Skin : No Skin Lesions, No rash Neuro : No Weakness, No Numbness, No Paresthesias, No Loss of Consciousness, No Dizziness, No Headache Psych : No Anxiety/Panic, No Depression, No SI/HI/AH/VH, No Social Issues, Heme/Lymph: No Bruising, No Bleeding,No Lymphadenopathy Endocrine : No Polyuria, No Polydipsia, No Temperature Intolerance PMFSH Past Medical History Medical History Cirrhosis Anemia Abdominal wall swelling Hyperammonemia Hepatic steatosis Diarrhea resulting from infection of the bowel mucosa Liver lesion Substance use Alcohol use disorder Anemia Chronic kidney disease Alcohol dependence Surgical History Hx of colonoscopy Hx of esophagogastroduodenoscopy History of urologic surgery H/O varicose vein stripping S/P bariatric surgery Social History Social History Household Members: Other Household Members Other:: sister Housing: Apartment Do you presently have visiting nurse or other home services: Yes (vna) Alcohol intake: former Patient Tobacco Use Status: Former Tobacco user Quit Date: 05/30/23 Tobacco use type: Cigarette Smoked in Last 30 Days: No Second Hand Smoke Exposure: No Substance Use Type: Crack/Cocaine and Marijuana Advance Directives: Yes Advance Directives on File: Yes Advance Directives Date on File: 06/08/23 service: No Current occupational status: employed Physical Exam Vital Signs: Vital Signs: Last Vital Signs Temp 99.5 F 09/03/23 06:10 Pulse 96 09/03/23 06:10 Resp 18 09/03/23 06:10 BP 94/55 L 09/03/23 06:10 Pulse Ox 97 09/03/23 06:10 O2 Del Method Room Air 09/03/23 06:10 BMI result Body Mass Index 30.6 Const: Other: Appearance: Alert. Oriented X3. No acute distress. Eyes: Pupils equal, round and reactive to light. ENT: Pharynx normal. Neck: Normal inspection. Neck supple. No lymph nodes noted. No crepitus CVS: Normal heart rate and rhythm. Pulses normal. Normal S1 and S2 Respiratory: No respiratory distress. Breath sounds normal. No Wheezing. No rales , dry cough Abdomen: Soft and nontender. No rigidity. No distention. Skin: Skin warm , clammy Normal skin color. Normal skin turgor. Extremities: Patient has significant lower extremity lymphedema of the right leg. Neuro: Oriented X 3. No motor deficit. No sensory deficit. Moving all extremities. No slurred speech. CN 2 through 12 grossly intact Psych: calm, cooperative, normal affect Course Course Course Narrative: -I was informed by the patient's nurse, that the patient has a fever of 103.8 rectal. No episodes of hypotension recorded. -given patient's multiple comorbidities, patient will be empirically treated with IV fluids based on ideal weight of 73 kg and antibiotics. The only possible source of infection at this time may be a URI since the patient came in coughing. At this time, 00:06, sepsis is not suspected. -all of patient's labs and imaging pending Medications Administered Generic Name Dose Route Start Last Admin Trade Name Freq PRN Reason Stop Dose Admin Albumin Human 100 mls @ 100 mls/hr 09/03/23 02:15 09/03/23 05:48 Kedbumin 25 % IV 09/03/23 21:14 Infused Q6H VALERIE Infusion Norepinephrine Bitartrate 8 mg in 250 mls @ 0 mls/hr 09/03/23 04:00 09/03/23 05:30 Levophed IV 0.19 mcg/kg/min .Q0M VALERIE 36.41 mls/hr Titration Protocol Per Protocol Discontinued Medications Generic Name Dose Route Start Last Admin Trade Name Holly PRN Reason Stop Dose Admin Acetaminophen 975 mg 09/02/23 23:52 09/03/23 00:17 Acetaminophen 325 Mg Tablet PO 09/02/23 23:53 975 mg ONCE ONE Administration Sodium Chloride 2,190 mls @ 2,190 mls/hr 09/03/23 00:06 09/03/23 02:15 Ns 30 ml/kg infuse over 1 hr (2190 ml) 09/03/23 01:05 Infused IV Infusion .Q1H STA Ceftriaxone Sodium 1 gm/ 50 mls @ 100 mls/hr 09/03/23 00:09 09/03/23 01:34 Sodium Chloride IV 09/03/23 00:38 Infused ONCE ONE Infusion Azithromycin 500 mg/ Sodium 250 mls @ 125 mls/hr 09/03/23 00:09 09/03/23 04:10 Chloride IV 09/03/23 02:08 Infused ONCE ONE Infusion Sodium Chloride 1,000 mls @ 999 mls/hr 09/03/23 03:30 09/03/23 04:26 Ns IV 09/03/23 04:30 Infused .Q1H1M VALERIE Infusion Iohexol 85 ml 09/03/23 03:56 09/03/23 03:57 Iohexol 350 Mg/Ml 100 Ml Infus..Btl IV 09/03/23 03:57 85 ml ONCE ONE Administration Lidocaine 1 patch 09/03/23 05:12 09/03/23 05:25 Lidocaine 4 % Patch Adh..Patch TRANSDERMA 09/03/23 05:13 1 patch ONCE ONE Administration Protocol Lidocaine 2 patch 09/03/23 06:15 09/03/23 06:25 Lidocaine 4 % Patch Adh..Patch TRANSDERMA 09/03/23 06:16 2 patch ONCE ONE Administration Protocol Medical Decision Making Medical Decision Making MDM Narrative: -patient came in with a fever of 103.8, -overall, pt received 3L NS, 4 doses of albumin, ceftriaxone, azithomycin (empiric treatment with antibiotics, patient has a cough but no obvious source) -despite all this, patient's blood pressure kept dropping to the low 80s. Patient was started on Levophed peripherally. -there is no clear source of infection. Patient's x-ray was nondiagnostic, a CT scan was done, no obvious pneumonia, CT scan of the abdomen and pelvis does not show significant amount of ascites to call this SBP. Patient has no abdominal pain. Urine is clean, serology is negative for flu and COVID. -patient is currently on the last dose of albumin, and on 0.1 mcg per kg/hr of Levophed -initially, we were informed that were no beds. I called [facility], they are close to transfer. The patient's family is requesting that we do not transfer the patient. They have significant transportation issues and they would not be able to get to [place] or anywhere in [place]. -our charge nurse spoke with nurse supervisor wall mirror department. There is 1 bed that we can make for the bed at 07:00. -I discussed the patient with Dr. Nunn, patient was admitted to the ICU. -patient is awake, alert, no longer febrile, blood pressure 94/55, feeling much better, no pain. I discussed with the patient and his sister who is his health electrician substation that we will admit him to the ICU here in [facility], both are very grateful that we were able to accommodate them Differential Diagnosis Differential Diagnoses: The differential diagnosis associated with the presentation includes (Influenza, COVID, pneumonia, UTI) Admission/Observation Consideration of admission/observation: Escalation of care including admission/observation considered Lab Data MDM Lab Attestation statement: I reviewed the patient's lab results. 09/03/23 00:09 09/03/23 00:09 Labs: Lab Results 09/03/23 09/03/23 09/03/23 Range/Units 00:09 00:10 00:35 WBC 3.8 L (4.8-10.8) X10*3/uL RBC 3.02 L (4.60-5.80) X10*6/uL Hgb 8.7 L (14.0-18.0) g/dl Hct 26.0 L (42.0-52.0) % MCV 86.1 (80.0-98.0) fL MCH 28.8 (27.0-33.0) pg MCHC 33.5 (31.0-36.0) g/dl RDW 19.2 H (11.0-16.0) % Plt Count 154 L (160-400) X10*3/uL MPV 11.2 (9.4-12.4) fL Immature Gran % (Auto) 0.3 (0.0-0.4) % Neut % (Auto) 90.4 H (45-73) % Lymph % (Auto) 6.9 L (20-40) % [place] % (Auto) 1.3 L (2-11) % Eos % (Auto) 0.8 (0-4) % Baso % (Auto) 0.3 (0-2) % Lymph # (Auto) 0.3 L (1.2-4.9) X10*3/uL [place] # (Auto) 0.1 (0.1-1.2) X10*3/uL Eos # (Auto) 0.0 (0.0-0.4) X10*3/uL Baso # (Auto) 0.0 (0.0-0.2) X10*3/uL Abs Immat Gran (auto) 0.01 (0.00-0.03) X10*3/uL Absolute Neuts (auto) 3.4 (2.0-8.3) x10*3/uL Absolute Nucleated RBC 0.000 (0.0-0.012) X10*3/uL Nucleated RBC % (auto) 0.0 (0.0-0.2) /100WBC Smear Tech's Comments VERIFIED PT 20.0 H (11.1-13.3) SEC INR 1.6 H (0.9-1.1) Sodium 137 (135-145) mmol/L Potassium 4.9 (3.3-5.1) mmol/L Chloride 111 H (96-108) mmol/L Carbon Dioxide 18 L (22-29) mmol/L Anion Gap 13 (12-20) BUN 12 (9-16) mg/dL Creatinine 1.42 H (0.5-1.4) mg/dL Estim Creat Clear Calc 72.6 Estimated GFR 52 Random Glucose 92 (60-115) mg/dL Lactic Acid 2.3 H* (0.5-2.0) mmol/L Lactic Acid F/U @ 2Hr (0.5-2.0) mmol/L Calcium 8.3 L (8.4-10.2) mg/dL Magnesium 1.7 (1.6-2.6) mg/dL Total Bilirubin 1.6 H (0.0-1.0) mg/dL Direct Bilirubin 0.6 H (0.0-0.5) mg/dL AST 65 H (5-37) U/L ALT 32 (0-40) U/L Alkaline Phosphatase 150 H (39-117) U/L Ammonia 45 (13-55) umol/L Troponin I High Sens 28.4 D (<3.5-35.0) ng/L B-Natriuretic Peptide 271 H (<100) pg/mL Total Protein 7.2 (6.5-8.0) g/dL Albumin 2.5 L (3.5-5.0) g/dL Lipase 31 (8-78) U/L Urine Color Urine Appearance Urine pH (5.0-9.0) Ur Specific [place] (1.005-1.025) Urine Protein (Neg-Trace) mg/dL Urine Glucose (UA) (Negative) mg/dL Urine Ketones (Negative) mg/dL Urine Blood (Negative) Urine Nitrite (Negative) Ur Leukocyte Esterase (Negative) Urine RBC (0-2) /HPF Urine WBC (0-5) /HPF Ur Squamous Epith Cells (0-2) /HPF Calcium Oxalate Crystal Urine Bacteria (None Seen) Hyaline Casts (0-2) /LPF Stool Occult Blood (NEGATIVE) Ethyl Alcohol < 10 Cancelled mg/dL COVID-19 (YURIY) Negative (Negative) COVID-19 Clin Com See Note Influenza Type A (NEW) Negative (Negative) Influenza Type B (NEW) Negative (Negative) Influenza A & B Note See Note Blood Type O Positive Antibody Screen NEGATIVE 09/03/23 09/03/23 Range/Units 02:23 04:06 WBC (4.8-10.8) X10*3/uL RBC (4.60-5.80) X10*6/uL Hgb (14.0-18.0) g/dl Hct (42.0-52.0) % MCV (80.0-98.0) fL MCH (27.0-33.0) pg MCHC (31.0-36.0) g/dl RDW (11.0-16.0) % Plt Count (160-400) X10*3/uL MPV (9.4-12.4) fL Immature Gran % (Auto) (0.0-0.4) % Neut % (Auto) (45-73) % Lymph % (Auto) (20-40) % [place] % (Auto) (2-11) % Eos % (Auto) (0-4) % Baso % (Auto) (0-2) % Lymph # (Auto) (1.2-4.9) X10*3/uL [place] # (Auto) (0.1-1.2) X10*3/uL Eos # (Auto) (0.0-0.4) X10*3/uL Baso # (Auto) (0.0-0.2) X10*3/uL Abs Immat Gran (auto) (0.00-0.03) X10*3/uL Absolute Neuts (auto) (2.0-8.3) x10*3/uL Absolute Nucleated RBC (0.0-0.012) X10*3/uL Nucleated RBC % (auto) (0.0-0.2) /100WBC Smear Tech's Comments PT (11.1-13.3) SEC INR (0.9-1.1) Sodium (135-145) mmol/L Potassium (3.3-5.1) mmol/L Chloride (96-108) mmol/L Carbon Dioxide (22-29) mmol/L Anion Gap (12-20) BUN (9-16) mg/dL Creatinine (0.5-1.4) mg/dL Estim Creat Clear Calc Estimated GFR Random Glucose (60-115) mg/dL Lactic Acid (0.5-2.0) mmol/L Lactic Acid F/U @ 2Hr 3.1 H* (0.5-2.0) mmol/L Calcium (8.4-10.2) mg/dL Magnesium (1.6-2.6) mg/dL Total Bilirubin (0.0-1.0) mg/dL Direct Bilirubin (0.0-0.5) mg/dL AST (5-37) U/L ALT (0-40) U/L Alkaline Phosphatase (39-117) U/L Ammonia (13-55) umol/L Troponin I High Sens (<3.5-35.0) ng/L B-Natriuretic Peptide (<100) pg/mL Total Protein (6.5-8.0) g/dL Albumin (3.5-5.0) g/dL Lipase (8-78) U/L Urine Color Dark Yellow Urine Appearance Clear Urine pH 5.0 (5.0-9.0) Ur Specific [place] 1.020 (1.005-1.025) Urine Protein Trace (Neg-Trace) mg/dL Urine Glucose (UA) Negative (Negative) mg/dL Urine Ketones Trace (Negative) mg/dL Urine Blood Negative (Negative) Urine Nitrite Negative (Negative) Ur Leukocyte Esterase Trace H (Negative) Urine RBC 0-2 (0-2) /HPF Urine WBC 0-5 (0-5) /HPF Ur Squamous Epith Cells 3-5 (0-2) /HPF Calcium Oxalate Crystal Present Urine Bacteria None Seen (None Seen) Hyaline Casts 11-20 (0-2) /LPF Stool Occult Blood NEGATIVE (NEGATIVE) Ethyl Alcohol mg/dL COVID-19 (YURIY) (Negative) COVID-19 Clin Com Influenza Type A (NEW) (Negative) Influenza Type B (NEW) (Negative) Influenza A & B Note Blood Type Antibody Screen Independent Interpretation I performed an independent interpretation of an: CT Scan (My interpretation of CT scan of the chest abdomen pelvis, no obvious source of infection. No infiltrates) Radiology Impression Discussion of test interpretation with radiology: I have reviewed the radiologist's reading. Radiologist Impression: FINDINGS: MODERATE NEEDS TEACHER: Unremarkable. LUNGS: There is linear consolidation at the lung bases. The lungs are otherwise clear. MEDIASTINUM: The heart is within normal limits for size. There is no pericardial effusion. There is mild coronary calcification. The aorta is unremarkable. There is no significant lymph node enlargement. PLEURA: There is no pleural effusion. No pleural mass or thickening. AXILLA: No lymphadenopathy. LIVER, GALLBLADDER, AND BILIARY TREE: Liver is slightly irregular in contour and relatively small in size. No focal liver lesions are seen. There is no intrahepatic biliary duct dilatation. There has been a prior cholecystectomy. PANCREAS: Unremarkable. SPLEEN: Spleen is mildly enlarged measuring up to 15 cm ADRENAL GLANDS: Unremarkable. KIDNEYS AND URETERS: The kidneys are normal in size, shape, and attenuation. There are bilateral parapelvic cysts. There is no hydronephrosis. No renal calculi are seen. BLADDER: Unremarkable. GASTROINTESTINAL TRACT: There is mild right colonic thickening. ABDOMINAL WALL: There is significant soft tissue anasarca. There are multiple ventral hernias containing fat. LYMPH NODES: Stable peripancreatic lymph nodes are again seen. Stable inguinal lymph nodes are also seen. VASCULAR: Unremarkable. PELVIC VISCERA: Unremarkable. OSSEOUS STRUCTURES: There is a stable T11 compression fracture. There is also a stable L2 compression fracture. CT/CT chest w IV con IMPRESSION: 1. Linear consolidation at the lung bases likely representing atelectasis. 2. Cirrhotic-appearing liver. Mild splenomegaly. 3. Mild right colonic wall thickening possibly portal colopathy 4. Significant soft tissue anasarca. 5. Stable T11 and L2 compression fractures. 6. Multiple ventral hernias containing fat. Independent Historian Clinical information obtained from an independent historian. History obtained from or confirmed by: Other (Patient's sister) Chronic Conditions Patient?s care impacted by: Other (Cirrhosis) Critical Care Time Critical Care Time Critical Care Time: Yes Total Critical Care Time: 120 Attestation: I have personally provided critical care time. Time includes review of lab data, radiology results, discussion with consultants, and monitoring for potential decompensation. Intervention performed as documented. Discharge Plan Discharge Clinical Impression: Fever, Hypotension Patient Disposition: Admitted As Inpatient Prescriptions: No Action rifaximin 550 mg tablet 550 mg PO BID 90 Days Qty: 180 1RF acetaminophen [Tylenol Extra Strength] 500 mg tablet 500 mg PO QID PRN (Reason: pain) Qty: 60 1RF Rx Instructions: Pls do not take more than 4 tablets in 24h. thiamine mononitrate (vit B1) 100 mg Tablet 100 mg PO DAILY Qty: 90 0RF multivitamin [Daily-Sherry] Tablet 1 tab PO DAILY Qty: 90 0RF (DME) Ultra-Light Rollator Misc See Rx Instructions .Route Qty: 1 0RF Rx Instructions: As directed lidocaine 5 % adhesive patch,medicated 1 patch topical DAILY lactulose 20 gram/30 mL Solution 20 g PO QID Qty: 3000 2RF trazodone 50 mg tablet 25 mg PO BEDTIME PRN (Reason: insomnia) Qty: 14 1RF (DME) jenni Misc See Rx Instructions .Route Qty: 1 0RF Rx Instructions: As directed omeprazole 40 mg Capsule,Delayed Release(Dr/Ec) 40 mg PO DAILY 56 Days Qty: 142 0RF melatonin 5 mg Tablet 10 mg PO BEDTIME PRN (Reason: Insomnia) zinc sulfate [Zinc-220] 50 mg zinc (220 mg) Capsule 220 mg PO DAILY 90 Days Qty: 396 0RF Ensure High Protein Liquid 1 ea PO BID 30 Days Qty: 30587 1RF furosemide 40 mg tablet 40 mg PO DAILY Qty: 90 0RF Hold Instructions: hold until follow up with GI on Tuesday Print Language: Japanese
[2023-09-03] MEDS: 0.9 % Sodium Chloride 2,190 ML 2190 ML IV (00:16)
[2023-09-03] MEDS: Acetaminophen 325 MG TABLET 975 MG PO (00:17)
[2023-09-03 00:25] LABS: Basophils Percent Auto 0.3 % (0-2); Eosinophils Percent Auto 0.8 % (0-4); Hemoglobin 8.7 g/dl (14.0-18.0); Imm Gran Abs Auto 0.01 X10*3/uL (0.00-0.03); Imm Gran Pct Auto 0.3 % (0.0-0.4); Lymphocytes Absolute Auto 0.3 X10*3/uL (1.2-4.9); Lymphocytes Percent Auto 6.9 % (20-40); MANUAL DIFF FLAG SCAN; Mean Corpuscular HGB Conc 33.5 g/dl (31.0-36.0); Mean Corpuscular Hemoglobin 28.8 pg (27.0-33.0); Mean Corpuscular Volume 86.1 fL (80.0-98.0); Mean Platelet Volume 11.2 fL (9.4-12.4); Monocytes Absolute Auto 0.1 X10*3/uL (0.1-1.2); Monocytes Percent Auto 1.3 % (2-11); Neutrophils Absolute Auto 3.4 x10*3/uL (2.0-8.3); Neutrophils Percent Auto 90.4 % (45-73); Platelet Count 154 X10*3/uL (160-400); Red Blood Count 3.02 X10*6/uL (4.60-5.80); Red Cell Distribution Width 19.2 % (11.0-16.0); SCAN SMEAR FLAG 1; White Blood Count 3.8 X10*3/uL (4.8-10.8)
[2023-09-03 00:34] LABS: Ammonia 45 umol/L (13-55)
[2023-09-03 00:43] LABS: Alanine Aminotransferase 32 U/L (0-40); Albumin Level 2.5 g/dL (3.5-5.0); Alkaline Phosphatase 150 U/L (39-117); Anion Gap 13 (12-20); Aspartate Amino Transferase 65 U/L (5-37); Bilirubin Direct 0.6 mg/dL (0.0-0.5); Bilirubin Total 1.6 mg/dL (0.0-1.0); Blood Urea Nitrogen 12 mg/dL (9-16); Calcium 8.3 mg/dL (8.4-10.2); Carbon Dioxide 18 mmol/L (22-29); Chloride 111 mmol/L (96-108); Creatinine Clr Calc Pharmacy 72.6; Estimated Glomerular Filt Rate 52; Glucose Random 92 mg/dL (60-115); INTERNATIONAL NORM RATIO 1.6 (0.9-1.1); Lipase 31 U/L (8-78); Magnesium 1.7 mg/dL (1.6-2.6); Potassium 4.9 mmol/L (3.3-5.1); Sodium 137 mmol/L (135-145); Total Protein 7.2 g/dL (6.5-8.0)
[2023-09-03 00:43] LABS: COVID-19 Test Negative (Negative); IDNOW Serial# 08D9AD1C; IDNOW Serial# 152EDE1D; Influenza A Negative (Negative); Influenza B2 Negative (Negative)
[2023-09-03 00:45] LABS: Lactic Acid 2.3 mmol/L (0.5-2.0)
[2023-09-03 00:46] LABS: SLIDE REVIEW VERIFIED
[2023-09-03 00:46] LABS: Troponin-I High Sensitivity 28.4 ng/L (<3.5-35.0)
[2023-09-03] MEDS: cefTRIAXone sodium 1 GM in 0.9 % Sodium Chloride 50 ML IV ×2 (00:51→07:14)
[2023-09-03 00:54] LABS: Ethanol < 10 mg/dL
[2023-09-03 00:58] LABS: B Type Natriuretic Peptide 271 pg/mL (<100)
[2023-09-03] MEDS: Azithromycin 500 MG in 0.9 % Sodium Chloride 250 ML 125 MG IV (01:35)
[2023-09-03 02:21] LABS: Reflex Lactate? Lactic Acid Added
[2023-09-03] MEDS: Albumin Human 25 % 100 ML IV ×4 (02:26→07:14)
[2023-09-03 02:32] LABS: Appearance Urine Clear; Color Urine Dark Yellow; Glucose Urine UA Negative (Negative); Leukocyte Esterase Urine Trace (Negative); Nitrite Urine Negative (Negative); UMIC TRIGGER UACC YES; Urine Blood Negative (Negative); Urine Ketones Trace mg/dL (Negative); Urine Protein Trace mg/dL (Neg-Trace)
[2023-09-03 03:21] LABS: Bacteria Urine None Seen (None Seen); Calcium Oxalate Crystals Urine Present; RBC Urine 0-2 /HPF (0-2); WBC Urine 0-5 /HPF (0-5)
[2023-09-03] MEDS: 0.9 % Sodium Chloride 1,000 ML 999 ML IV (03:25)
[2023-09-03] MEDS: iohexoL 350 MG/ML 100 ML INFUS..BTL 85 ML IV (03:57)
--- NOTE | 2023-09-03 04:09 | PC.NURSE ---
per verbal order from 2nd albumin administered early and pressors to be held at this time
[2023-09-03 04:12] LABS: OBS Int Ctl Valid YES; OBS1 NEGATIVE (NEGATIVE)
[2023-09-03 04:25] LABS: ~Lactic Acid-LAB USE ONLY 3.1 mmol/L (0.5-2.0)
[2023-09-03] MEDS: Norepinephrine Bitartrate/D5W 8 MG/250 ML PLAST..BAG 9.58 MG IV (04:35)
--- NOTE | 2023-09-03 04:50 | PC.NURSE ---
dose 3 of albumin administered early per MD request.
[2023-09-03] MEDS: Lidocaine 4 % Patch ADH..PATCH 1 PATCH TRANSDERMA (05:25)
[2023-09-03 06:11] LABS: Reflex Lactate? 2 Y
--- NOTE | 2023-09-03 06:11 | PC.NURSE ---
pharmacy called for albumin. MD is aware waiting on last dose of albumin.
[2023-09-03] MEDS: Lidocaine 4 % Patch ADH..PATCH 2 PATCH TRANSDERMA (06:25)
--- NOTE | 2023-09-03 07:23 | PC.NURSE ---
Resumed care of patient at 0700, pt currently offering no complaints of pain/sob/cp/n/v. Pt has been at bedside helping patient with BMs, pt sister reporting baseline stool, no changes from baseline. Gale increed for BP/MAP, albumin hung from last bag ordered from overnight after restock. Pt awaiting ICU bed at this time
--- NOTE | 2023-09-03 09:59 | PHA.MEDREC ---
Pharmacy Consult ? Medication Reconciliation Pharmacy has completed the medication reconciliation. Spoke to patient's sister Rubi ([phone]) to confirm meds. No changes since last discharge (~08/20/23).
[2023-09-03] MEDS: Multivitamin TABLET 1 TAB PO (10:28)
[2023-09-03] MEDS: Midodrine HCl 5 MG TABLET 15 MG PO ×3 (10:28→20:08)
[2023-09-03] MEDS: Acetaminophen 325 MG TABLET 650 MG PO (10:28)
[2023-09-03] MEDS: Lactulose 20 GM/30 ML SOLUTION PO ×4 (10:28→20:08)
[2023-09-03] MEDS: rifAXIMin 550 MG TABLET PO ×2 (10:28→20:08)
[2023-09-03] MEDS: Furosemide 40 MG TABLET PO (10:28)
[2023-09-03] MEDS: Norepinephrine Bitartrate/D5W 8 MG/250 ML PLAST..BAG 36.41 MG IV (11:39)
--- NOTE | 2023-09-03 11:55 | PM.CCHP ---
History of Present Illness Date of Service: 09/03/23 Attending physician on admission: Santiago Nunn Chief Complaint: Shaking of hands Jonathon Dan is a 57-year-old male with past medical history of alcohol-related cirrhosis, GERD presented to the ED after he noticed shaking of his hands. Apparently he would dropped off his family members to airport yesterday, when he came back to home he noticed that his hands were shaking. His doctor had asked him to present to ER if he noticed shaky hands as a concern for hepatic encephalopathy. In the ED he was found to be hypotensive CT chest abdomen and pelvis did not show any source of infection except for a possible very small pneumonia. He had 1 episode of vomiting 2 days ago, takes lactulose for bowel movements and has normal bowel movements. He has occasional coughs, producing some whitish color sputum. Denies any runny nose, denies sore throat, denies urinary symptoms. Review of Systems Constitutional: Constitutional: Denies anorexia, Denies body ache(s), Denies daytime sleepiness and Reports difficulty sleeping Eyes: Eyes: Denies blind spots, Denies blurry vision and Denies change in vision ENT: Reports Normal hearing present and Denies bleeding gums Cardiovascular: Cardiovascular: Denies Abdominal Cramping after Meds, Denies Abdominal Distension, Denies chest pain, Denies chest pain with activity and Denies dyspnea Respiratory: Respiratory: Reports cough, Denies pain with cough and Denies dyspnea Gastrointestinal: Gastrointestinal: Denies abdominal pain and Denies melena Genitourinary: Genitourinary: Denies hematospermia and Denies hematuria Neurologic: Reports Normal hearing present [facility] Past Medical History Medical History Cirrhosis Anemia Abdominal wall swelling Hyperammonemia Hepatic steatosis Diarrhea resulting from infection of the bowel mucosa Liver lesion Substance use Alcohol use disorder Anemia Chronic kidney disease Alcohol dependence Surgical History Surgical History Hx of colonoscopy Hx of esophagogastroduodenoscopy History of urologic surgery H/O varicose vein stripping S/P bariatric surgery Social History Social History Household Members: Family Household Members Other:: sister Housing: Apartment Do you presently have visiting nurse or other home services: No Alcohol intake: former Patient Tobacco Use Status: Former Tobacco user Quit Date: 05/30/23 Tobacco use type: Cigarette Smoked in Last 30 Days: No e-Cigarette/Vaping Use: Never Used Patient Interested in Nicotine Replacement: No Second Hand Smoke Exposure: No Use of substances other than those prescribed or required for medical reasons: No Substance Use Type: Crack/Cocaine and Marijuana Have you been hit, kicked, punched, or otherwise hurt by someone within the past year? If so, by whom?: No Do you feel safe in your current relationship?: Yes Is there a partner from a previous relationship who is making you feel unsafe now?: No Advance Directives: Yes Advance Directives on File: Yes Advance Directives Date on File: 06/08/23 Do you have a plan to hurt others: No Plan Recently lost weight without trying: No How much weight loss: Not applicable Eating poorly because of decreased appetite: No Nutrition screen score: 0 Nutrition Risks: No Nutritional Risk Poor oral hygiene: No service: No Current occupational status: employed Meds Allergies Allergy/AdvReac Type Severity Reaction Status Date / Time No Known Allergies Allergy Verified 09/02/23 23:48 Active Medications: Current Medications Acetaminophen (Acetaminophen 325 Mg Tablet) 650 mg PO Q8H PRN PRN Reason: Pain, Moderate(Pain Scale 4-6) Last Admin: 09/03/23 10:28 Dose: 650 mg Furosemide (Furosemide 40 Mg Tablet) 40 mg PO DAILY [facility]; Protocol Last Admin: 09/03/23 10:28 Dose: 40 mg Albumin Human (Kedbumin 25 %) 100 mls @ 100 mls/hr IV Q6H [facility] Stop: 09/03/23 21:14 Last Infusion: 09/03/23 08:35 Dose: Infused Norepinephrine Bitartrate (Levophed) 8 mg in 250 mls @ 0 mls/hr IV .Q0M [facility]; Protocol Last Admin: 09/03/23 11:39 Dose: 0.19 mcg/kg/min, 36.41 mls/hr Ceftriaxone Sodium 1 gm/ (Sodium Chloride) 50 mls @ 100 mls/hr IV Q24H [facility] Last Infusion: 09/03/23 07:54 Dose: Infused Lactulose (Lactulose 20 Gm/30 Ml Solution) 20 gm PO QID [facility] Last Admin: 09/03/23 10:28 Dose: 20 gm Melatonin (Melatonin 3 Mg Tablet) 12 mg PO BEDTIME PRN PRN Reason: Insomnia Midodrine (Midodrine Hcl 5 Mg Tablet) 15 mg PO TID [facility] Last Admin: 09/03/23 10:28 Dose: 15 mg Multivitamins/Vitamin C (Multivitamin Tablet) 1 tab PO DAILY [facility] Last Admin: 09/03/23 10:28 Dose: 1 tab Rifaximin (Rifaximin 550 Mg Tablet) 550 mg PO BID [facility] Last Admin: 09/03/23 10:28 Dose: 550 mg Trazodone HCl (Trazodone Hcl 25 Mg Halftab) 25 mg PO BEDTIME PRN PRN Reason: insomnia Home Medications ?Medication ?Instructions ?Recorded ?Confirmed ?Last Taken ?Type melatonin 5 mg tablet 12 mg PO BEDTIME PRN Insomnia 07/18/23 09/03/23 09/02/23 History lidocaine 5 % topical patch 1 patch topical DAILY 08/18/23 09/03/23 09/02/23 History acetaminophen 500 mg tablet 1,000 mg PO BID PRN pain 09/03/23 09/03/23 09/02/23 History (Tylenol Extra Strength) midodrine 5 mg tablet 5 mg PO TID 09/03/23 09/03/23 09/02/23 History omeprazole 40 mg capsule,delayed 40 mg PO DAILY@0630 09/03/23 09/03/23 09/02/23 History release trazodone 50 mg tablet 50 mg PO BEDTIME 09/03/23 09/03/23 09/02/23 History Physical Exam Vital Signs: Vital Signs: Last Vital Signs Temp 98.5 F 09/03/23 10:00 Pulse 88 09/03/23 11:39 Resp 22 H 09/03/23 11:00 BP 103/59 L 09/03/23 11:39 Pulse Ox 97 09/03/23 11:00 O2 Del Method Room Air 09/03/23 11:00 BMI result Body Mass Index 30.7 General: not in acute distress, ill appearing and tired appearing Nutritional Appearance: well nourished and overweight Eyes: appearance normal, both eyes and all related structures; Alignment and Position: alignment normal and position normal Neck: No lymphadenopathy, no thyromegaly Resp: bilateral air entry equal, occasional added sounds present Cardio: Regular rate, regular rhythm; Heart sounds: S1 normal heart sound present and S2 normal heart sound present, lower extremity swelling present GI: soft, nontender, no guarding, no hepatosplenomegaly : bladder normal to inspection, bladder normal to palpation, no renal angle tenderness Skin: no rashes or lesions noted and elasticity normal Neuro: oriented to person, oriented to place, oriented to time and moves all extremities Neuro: Cranial nerves: Yes Normal hearing present Results Labs 09/03/23 00:09 09/03/23 00:09 Labs: Laboratory Results - last 24 hr 09/03/23 09/03/23 09/03/23 00:09 00:10 00:35 MCV 86.1 MCH 28.8 MCHC 33.5 RDW 19.2 H Plt Count 154 L MPV 11.2 Immature Gran % (Auto) 0.3 Neut % (Auto) 90.4 H Lymph % (Auto) 6.9 L [place] % (Auto) 1.3 L Eos % (Auto) 0.8 Baso % (Auto) 0.3 Lymph # (Auto) 0.3 L [place] # (Auto) 0.1 Eos # (Auto) 0.0 Baso # (Auto) 0.0 Abs Immat Gran (auto) 0.01 Absolute Neuts (auto) 3.4 Absolute Nucleated RBC 0.000 Nucleated RBC % (auto) 0.0 Smear Tech's Comments VERIFIED PT 20.0 H INR 1.6 H Anion Gap 13 Estim Creat Clear Calc 72.6 Estimated GFR 52 Random Glucose 92 Lactic Acid 2.3 H* Lactic Acid F/U @ 2Hr Lactic Acid F/U @ 4Hr Calcium 8.3 L Magnesium 1.7 Total Bilirubin 1.6 H Direct Bilirubin 0.6 H AST 65 H ALT 32 Alkaline Phosphatase 150 H Ammonia 45 Troponin I High Sens 28.4 D B-Natriuretic Peptide 271 H Total Protein 7.2 Albumin 2.5 L Lipase 31 Urine Color Urine Appearance Urine pH Ur Specific [place] Urine Protein Urine Glucose (UA) Urine Ketones Urine Blood Urine Nitrite Ur Leukocyte Esterase Urine RBC Urine WBC Ur Squamous Epith Cells Calcium Oxalate Crystal Urine Bacteria Hyaline Casts Stool Occult Blood Ethyl Alcohol < 10 Cancelled COVID-19 (YURIY) Negative COVID-19 Clin Com See Note Influenza Type A (NEW) Negative Influenza Type B (NEW) Negative Influenza A & B Note See Note Blood Type O Positive Antibody Screen NEGATIVE 09/03/23 09/03/23 09/03/23 02:23 04:06 06:32 MCV MCH MCHC RDW Plt Count MPV Immature Gran % (Auto) Neut % (Auto) Lymph % (Auto) [place] % (Auto) Eos % (Auto) Baso % (Auto) Lymph # (Auto) [place] # (Auto) Eos # (Auto) Baso # (Auto) Abs Immat Gran (auto) Absolute Neuts (auto) Absolute Nucleated RBC Nucleated RBC % (auto) Smear Tech's Comments PT INR Anion Gap Estim Creat Clear Calc Estimated GFR Random Glucose Lactic Acid Lactic Acid F/U @ 2Hr 3.1 H* Lactic Acid F/U @ 4Hr 2.8 H* Calcium Magnesium Total Bilirubin Direct Bilirubin AST ALT Alkaline Phosphatase Ammonia Troponin I High Sens B-Natriuretic Peptide Total Protein Albumin Lipase Urine Color Dark Yellow Urine Appearance Clear Urine pH 5.0 Ur Specific [place] 1.020 Urine Protein Trace Urine Glucose (UA) Negative Urine Ketones Trace Urine Blood Negative Urine Nitrite Negative Ur Leukocyte Esterase Trace H Urine RBC 0-2 Urine WBC 0-5 Ur Squamous Epith Cells 3-5 Calcium Oxalate Crystal Present Urine Bacteria None Seen Hyaline Casts 11-20 Stool Occult Blood NEGATIVE Ethyl Alcohol COVID-19 (YURIY) COVID-19 Clin Com Influenza Type A (NEW) Influenza Type B (NEW) Influenza A & B Note Blood Type Antibody Screen Imaging Radiologist's Impressions: Impressions Chest X-Ray 09/03/23 00:17 IMPRESSION: The study is significantly limited due to very low lung volumes. There is stable lingular atelectasis or scarring. The well-visualized lung koo are otherwise clear. Abdomen/Pelvis CT 09/03/23 03:58 IMPRESSION: 1. Linear consolidation at the lung bases likely representing atelectasis. 2. Cirrhotic-appearing liver. Mild splenomegaly. 3. Mild right colonic wall thickening possibly portal colopathy 4. Significant soft tissue anasarca. 5. Stable T11 and L2 compression fractures. 6. Multiple ventral hernias containing fat. Fleischner guidelines were followed. Chest CT 09/03/23 03:58 IMPRESSION: 1. Linear consolidation at the lung bases likely representing atelectasis. 2. Cirrhotic-appearing liver. Mild splenomegaly. 3. Mild right colonic wall thickening possibly portal colopathy 4. Significant soft tissue anasarca. 5. Stable T11 and L2 compression fractures. 6. Multiple ventral hernias containing fat. Fleischner guidelines were followed. Venous Duplex 09/03/23 08:10 IMPRESSION: 1. No DVT demonstrated in the right lower extremity. 2. Redemonstrated enlarged right groin lymph node measuring 2.0 cm in short axis. 3. Subcutaneous edema along the right calf. Assessment and Plan (1) Septic shock: Status: Acute (2) Acute kidney failure: Status: Acute (3) Portosystemic shunt, spontaneous: Status: Acute (4) Fever: Status: Acute Plan Septic shock: Blood cultures growing 2 sets of GPCs On Levophed for vasopressor support, titrate to keep the map above 65 mm Hg We will get TTE done to rule out endocarditis We will start on vancomycin and Zosyn Received 3 L of IV fluid bolus, lactate trended, no further boluses needed given history of cirrhosis and chronic edema, blood cultures were sent which is growing GPCs, antibiotics were given on time Acute kidney injury: Possibly due to shock We will trend creatinine Closely monitor I's and O's Liver cirrhosis: Early signs of hepatic encephalopathy, continue lactulose and rifaximin Continue Lasix for the management of edema Prophylaxis: Lovenox, pantoprazole Total time managing care of this patient today: 35 minutes.
--- NOTE | 2023-09-03 12:44 | MHC.CM.PN ---
Addendum entered by Geeta Shane 09/03/23 13:58: PER [facility], PT IS NO LONGER ACTIVE. CM REQUEST THEY FOLLOW SHOULD SERVICES BE RECOMMENDED. Original Note: CM MET WITH PT IN ICU. PT LIVES WITH SISTER/HCP. PT USES A WALKER FOR MOBILITY AND IS ACTIVE WITH [facility]. RETURN REFERRAL SENT. +HCP ON FILE. DP: HOME WITH RESUMPTION OF SERVICES IS THE GOAL. SISTER WILL TRANSPORT. CM WILL CONTINUE TO FOLLOW FOR ANY CHANGE TO DC PLAN /NEEDS.
[2023-09-03 12:50] LABS: Alanine Aminotransferase 50 U/L (0-40); Albumin Level 2.9 g/dL (3.5-5.0); Alkaline Phosphatase 106 U/L (39-117); Anion Gap 16 (12-20); Aspartate Amino Transferase 115 U/L (5-37); Blood Urea Nitrogen 17 mg/dL (9-16); Calcium 7.6 mg/dL (8.4-10.2); Carbon Dioxide 15 mmol/L (22-29); Chloride 113 mmol/L (96-108); Creatinine Clr Calc Pharmacy 64.6; Estimated Glomerular Filt Rate 45; Glucose Random 82 mg/dL (60-115); Magnesium 1.6 mg/dL (1.6-2.6); Phosphorus 3.2 mg/dL (2.7-4.5); Potassium 4.5 mmol/L (3.3-5.1); Sodium 139 mmol/L (135-145); Total Protein 6.7 g/dL (6.5-8.0)
[2023-09-03 13:05] LABS: Procalcitonin 30.75 ng/mL
[2023-09-03] MEDS: cefEPime HCl 1 GM in 0.9 % Sodium Chloride 50 ML IV (13:27)
[2023-09-03] MEDS: Enoxaparin Sodium 30 MG/0.3 ML SYRINGE SUBCUT (15:06)
[2023-09-03] MEDS: vancomycin/NS 2,000 MG/500 ML PLAST..BAG 250 MG IV (15:06)
--- NOTE | 2023-09-03 16:18 | PHA.PROG ---
Admission Date/Time: September 03, 2023 06:47 Indication: bacteremia Weight in k.7 kg Adjusted body weight in Kg: [place] body weight in Kg: Obesity Dosing Indication % IBW: BMI 30.7 Serum Creatinine - Last 168 Hours 09/03/23 09/03/23 00:09 11:59 Creatinine 1.42 H 1.60 H Estimated CrCl and GFR - Last 168 Hours 09/03/23 09/03/23 00:09 11:59 Estim Creat Clear Calc 72.6 64.6 Estimated GFR 52 45 Vancomycin Loading Dose: 2000 x1 Current Vancomycin Dosing Regimen: 1500 Q24H Vancomycin Monitoring using AUC goal of 400 - 600 range with trough as surrogate marker: 480 Date and Time for next Vancomycin Level to be drawn: 09/04 @1500 Pharmacist Comments on Vancomycin Plan: Predicted trough 14.3, watching renal function Vancomycin dosing will take advantage of [employer] as a clinical decision support tool that uses Bayesian modeling to calculate individual patient's pharmacokinetic parameters and forecast the patient's drug concentration time course with the target goal AUC 24 range of 400 - 600 mg/L/hr.
[2023-09-03] MEDS: Norepinephrine Bitartrate/D5W 8 MG/250 ML PLAST..BAG 32.58 MG IV (18:17)
[2023-09-04] VITALS (34 sets, daily range): BP systolic 93–121; BP diastolic 50–71; PULSE 62–80; RESP 16–80; TEMP 36.8–37.1; O2SAT 95–100; BMI 30.7
[2023-09-04] MEDS: Norepinephrine Bitartrate/D5W 8 MG/250 ML PLAST..BAG 24.91 MG IV (00:22)
[2023-09-04] MEDS: cefEPime HCl 1 GM in 0.9 % Sodium Chloride 50 ML IV (00:23)
[2023-09-04] MEDS: 0.9 % Sodium Chloride Flush 3 ML SYRINGE IVFLUSH ×3 (00:24→20:48)
[2023-09-04 05:58] LABS: VBG Base Excess -5.3 mmol/L; VBG HCO3 17 mmol/L (22-26); VBG pCO2 26 mmHg; VBG pH 7.43 (7.32-7.43); VBG pO2 51 mmHg
[2023-09-04 06:01] LABS: Venous Blood Gas Refer to POC result
[2023-09-04 07:15] LABS: Hemoglobin 7.8 g/dl (14.0-18.0); Mean Corpuscular HGB Conc 33.9 g/dl (31.0-36.0); Mean Corpuscular Hemoglobin 28.9 pg (27.0-33.0); Mean Corpuscular Volume 85.2 fL (80.0-98.0); Red Cell Distribution Width 19.8 % (11.0-16.0); White Blood Count 22.5 X10*3/uL (4.8-10.8)
[2023-09-04 07:47] LABS: Band Neutrophils Percent 17 % (3-5); Lymphocytes Absolute Manual 2.3 X10*3/uL (1.2-4.9); Lymphocytes Percent Manual 10 % (20-40); Monocytes Absolute Manual 0.7 X10*3/uL (0.1-1.2); Monocytes Percent Manual 3 % (2-11); Neutrophils Absolute Manual 19.6 X10*3/uL (2.0-8.3); Neutrophils Percent Manual 70 % (45-73)
[2023-09-04 07:49] LABS: Burr Cells 3+ (>5) /OIF; RBC Morphology NOTED; Toxic Vacuolation PRESENT
[2023-09-04 07:52] LABS: Schistocytes 1+ (0-2) /OIF
[2023-09-04 07:55] LABS: Platelet Estimate DECREASED (NORMAL); Platelet Morphology Comment NORMAL
[2023-09-04 08:04] LABS: Alanine Aminotransferase 48 U/L (0-40); Albumin Level 2.7 g/dL (3.5-5.0); Alkaline Phosphatase 101 U/L (39-117); Anion Gap 15 (12-20); Aspartate Amino Transferase 98 U/L (5-37); Bilirubin Total 1.9 mg/dL (0.0-1.0); Blood Urea Nitrogen 24 mg/dL (9-16); Calcium 8.2 mg/dL (8.4-10.2); Carbon Dioxide 14 mmol/L (22-29); Chloride 112 mmol/L (96-108); Creatinine Clr Calc Pharmacy 68.5; Estimated Glomerular Filt Rate 48; Glucose Random 75 mg/dL (60-115); Potassium 4.3 mmol/L (3.3-5.1); Sodium 137 mmol/L (135-145); Total Protein 6.7 g/dL (6.5-8.0)
[2023-09-04] MEDS: Lactulose 20 GM/30 ML SOLUTION PO ×4 (08:10→20:40)
[2023-09-04] MEDS: rifAXIMin 550 MG TABLET PO ×2 (08:10→20:40)
[2023-09-04] MEDS: Midodrine HCl 5 MG TABLET 15 MG PO ×3 (08:10→20:40)
[2023-09-04] MEDS: Multivitamin TABLET 1 TAB PO (08:10)
[2023-09-04] MEDS: Furosemide 40 MG TABLET PO (08:10)
[2023-09-04] MEDS: Acetaminophen 325 MG TABLET 650 MG PO ×2 (08:15→20:50)
--- NOTE | 2023-09-04 12:21 | P.PNCC_ITS ---
Subjective Subjective Date of Service: 09/04/23 Interval History: Doing better Levophed doses decreasing Acute kidney injury improving Blood cultures positive for group B strep Critical Care Time (minutes): 35 Physical Exam 2 Vital Signs: Vital Signs: Last Vital Signs Temp 98.5 F 09/04/23 11:00 Pulse 73 09/04/23 12:00 Resp 27 H 09/04/23 12:00 BP 115/60 09/04/23 12:00 Pulse Ox 96 09/04/23 12:00 O2 Del Method Room Air 09/04/23 12:00 BMI result Body Mass Index 30.7 General: Not in acute distress, chronic ill appearing and tired appearing Nutritional Appearance: well nourished and overweight Eyes: appearance normal, both eyes and all related structures; Alignment and Position: alignment normal and position normal Neck: No lymphadenopathy, no thyromegaly Resp: bilateral air entry equal, no added salt Cardio: Regular rate, regular rhythm; Heart sounds: S1 normal heart sound present and S2 normal heart sound present, edema + GI: soft, nontender, no guarding, no hepatosplenomegaly : bladder normal to inspection, bladder normal to palpation, no renal angle tenderness Skin: no rashes or lesions noted and elasticity normal Neuro: oriented to person, oriented to place, oriented to time and moves all extremities Objective Data Labs 09/04/23 05:49 09/04/23 07:04 Labs: Laboratory Results - last 24 hr 09/03/23 09/04/23 09/04/23 11:59 05:49 05:50 WBC 22.5 H RBC 2.70 L Hgb 7.8 L Hct 23.0 L MCV 85.2 MCH 28.9 MCHC 33.9 RDW 19.8 H Plt Count Not Reportable MPV Not Reportable Immature Gran % (Auto) Cancelled Neut % (Auto) Cancelled Lymph % (Auto) Cancelled [place] % (Auto) Cancelled Eos % (Auto) Cancelled Baso % (Auto) Cancelled Lymph # (Auto) Cancelled [place] # (Auto) Cancelled Eos # (Auto) Cancelled Baso # (Auto) Cancelled Abs Immat Gran (auto) Cancelled Absolute Neuts (auto) Cancelled Absolute Nucleated RBC 0.000 Nucleated RBC % (auto) 0.0 Neutrophils % (Manual) 70 Band Neutrophils % 17 H Lymphocytes % (Manual) 10 L Monocytes % (Manual) 3 Abs Neuts (Manual) 19.6 H Lymphocytes # (Manual) 2.3 Monocytes # (Manual) 0.7 Toxic Vacuolation PRESENT Platelet Estimate DECREASED Plt Morphology Comment NORMAL RBC Morphology NOTED [place] Cells 3+ (>5) Schistocytes 1+ (0-2) VBG pH 7.43 VBG pCO2 26 VBG pO2 51 VBG HCO3 17 L VBG O2 Saturation 82.0 VBG Base Excess -5.3 Sodium 139 Potassium 4.5 Chloride 113 H Carbon Dioxide 15 L Anion Gap 16 BUN 17 H Creatinine 1.60 H Estim Creat Clear Calc 64.6 Estimated GFR 45 Random Glucose 82 Calcium 7.6 L D Phosphorus 3.2 Magnesium 1.6 Total Bilirubin 2.0 H AST 115 H ALT 50 H Alkaline Phosphatase 106 Total Protein 6.7 Albumin 2.9 L Procalcitonin 30.75 09/04/23 07:04 WBC RBC Hgb Hct MCV MCH MCHC RDW Plt Count MPV Immature Gran % (Auto) Neut % (Auto) Lymph % (Auto) [place] % (Auto) Eos % (Auto) Baso % (Auto) Lymph # (Auto) [place] # (Auto) Eos # (Auto) Baso # (Auto) Abs Immat Gran (auto) Absolute Neuts (auto) Absolute Nucleated RBC Nucleated RBC % (auto) Neutrophils % (Manual) Band Neutrophils % Lymphocytes % (Manual) Monocytes % (Manual) Abs Neuts (Manual) Lymphocytes # (Manual) Monocytes # (Manual) Toxic Vacuolation Platelet Estimate Plt Morphology Comment RBC Morphology [place] Cells Schistocytes VBG pH VBG pCO2 VBG pO2 VBG HCO3 VBG O2 Saturation VBG Base Excess Sodium 137 Potassium 4.3 Chloride 112 H Carbon Dioxide 14 L Anion Gap 15 BUN 24 H Creatinine 1.51 H Estim Creat Clear Calc 68.5 Estimated GFR 48 Random Glucose 75 Calcium 8.2 L D Phosphorus Magnesium Total Bilirubin 1.9 H AST 98 H ALT 48 H Alkaline Phosphatase 101 Total Protein 6.7 Albumin 2.7 L Procalcitonin Microbiology Microbiology Results: Microbiology 09/03/23 00:10 Blood - Venous Blood Culture - Final Strep agalactiae (Grp B) 09/03/23 00:10 Blood - Venous Blood Culture - Final Strep agalactiae (Grp B) Progress Note: A&P Assessment and plan (1) Acute kidney failure: Status: Acute (2) Septic shock: Status: Acute (3) Hypotension: Status: Acute (4) Fever: Status: Acute (5) Portosystemic shunt, spontaneous: Status: Acute Plan Septic shock: Blood cultures growing 2 sets group B strep. Patient had endoscopic and colonoscopic procedures 2 weeks ago which might have led to bacterial translocation. CT chest showing mild pneumonia which might be the other source of infection. On Levophed for vasopressor support, titrate to keep the map above 65 mm Hg Pending TTE done to rule out endocarditis We will discontinue vancomycin and Zosyn; we will switch to ceftriaxone Received 3 L of IV fluid bolus, lactate trended, no further boluses needed given history of cirrhosis and chronic edema, blood cultures were sent which is growing GPCs, antibiotics were given on time Acute kidney injury: Possibly due to shock Creatinine improving, down to 1.5 today Closely monitor I's and O's Liver cirrhosis: Early signs of hepatic encephalopathy, continue lactulose and rifaximin Continue Lasix for the management of edema Prophylaxis: Lovenox, pantoprazole Total time managing care of this patient today: 35 minutes. Quality Stroke Does the patient have a stroke diagnosis?: No VTE Prior VTE?: No VTE Risk Level:: Medical - moderate - high VTE Device Contraindication: N/A - Device Ordered VTE Drug Contraindication: N/A - Med Ordered
[2023-09-04] MEDS: Enoxaparin Sodium 30 MG/0.3 ML SYRINGE SUBCUT (12:40)
[2023-09-04] MEDS: cefTRIAXone sodium 2 GM in 0.9 % Sodium Chloride 50 ML IV (12:40)
[2023-09-04] MEDS: Lidocaine 4 % Patch ADH..PATCH 2 PATCH TRANSDERMA (13:37)
[2023-09-04] MEDS: traZODone HCL 25 MG HALFTAB PO (20:40)
[2023-09-05] VITALS (11 sets, daily range): BP systolic 94–116; BP diastolic 44–71; PULSE 63–79; RESP 17–27; TEMP 36.2–37.3; O2SAT 95–100; BMI 32.0
--- NOTE | 2023-09-05 04:59 | P.PNCC_ITS ---
Subjective Subjective Date of Service: 09/05/23 Interval History: Patient is who was admitted yesterday due to Septic shock; he is now hemodynamically stable and has been off vasopressors since yesterday at noon time. Patient has no complaints at this point.? His laboratories are pending.? It Is known he has Gram-positive cocci growth awaiting final results. Is known that the patient had endoscopy and colonoscopy procedures about 2 weeks ago, we questioned the possibility of bacterial translocation versus endocarditis as for the reason of his septic shock. EXAM: 103/73, heart rate 67, respiratory rate 26, O2 sat 97% on room air. Alert oriented x3, no acute distress Skin intact. Pupils equal bilaterally.? Buccal mucosa moist.? Neck supple. Heart regular rate and rhythm no murmurs rubs gallops Lungs clear to auscultation bilaterally. Abdomen protuberant, positive bowel sounds, soft, nontender. Leiva cath in place with yellow urine Full range of motion of upper and lower extremities bilaterally, 1+ edema up to mid tibia.? No asymmetry.? No calf tenderness. Patient follows all commands.? There is no focal deficits noted. 2+ pulses upper and lower extremities bilaterally. ? Assessment and Plan of care Acute Septic shockl source likely CAPna ? other undetermined source Blood cultures growing 2 sets group B strep. Patient had endoscopic and colonoscopic procedures 2 weeks ago ? bacterial translocation. CT chest showing mild pneumonia which might be the other source of infection. Pending TTE to rule out endocarditis Acute kidney injury: likely shock ATN Creatinine down to 1.5 baseline 1 Liver cirrhosis: Mild hepatic encephalopathy, continue lactulose and rifaximin Continue Lasix for the management of edema Prophylaxis: Lovenox, pantoprazole Patient will be transferred to the floor for further management.? Case discussed with Dr. Hastings. Critical care time used for critical evaluation of this patient, diagnosis, treatment and coordination of care, review her records and documentation TOTAL CRITICAL CARE TIME? 30 MIN . discussion and coordination with consultants, completely separate from any procedures performed. . Patient's care was discussed in detail with Dr. Nunn.? He is aware of all the above as well as the plan of care for this patient. Critical Care Time (minutes): 30 Physical Exam 2 Vital Signs: Vital Signs: Last Vital Signs Temp 97.9 F 09/05/23 04:00 Pulse 71 09/05/23 04:00 Resp 17 09/05/23 04:00 BP 103/64 09/05/23 04:00 Pulse Ox 97 09/05/23 04:00 O2 Del Method Room Air 09/05/23 04:00 BMI result Body Mass Index 30.7 Objective Data Labs 09/04/23 05:49 09/04/23 07:04 Labs: Laboratory Results - last 24 hr 09/04/23 09/04/23 09/04/23 05:49 05:50 07:04 WBC 22.5 H RBC 2.70 L Hgb 7.8 L Hct 23.0 L MCV 85.2 MCH 28.9 MCHC 33.9 RDW 19.8 H Plt Count Not Reportable MPV Not Reportable Immature Gran % (Auto) Cancelled Neut % (Auto) Cancelled Lymph % (Auto) Cancelled [place] % (Auto) Cancelled Eos % (Auto) Cancelled Baso % (Auto) Cancelled Lymph # (Auto) Cancelled [place] # (Auto) Cancelled Eos # (Auto) Cancelled Baso # (Auto) Cancelled Abs Immat Gran (auto) Cancelled Absolute Neuts (auto) Cancelled Absolute Nucleated RBC 0.000 Nucleated RBC % (auto) 0.0 Neutrophils % (Manual) 70 Band Neutrophils % 17 H Lymphocytes % (Manual) 10 L Monocytes % (Manual) 3 Abs Neuts (Manual) 19.6 H Lymphocytes # (Manual) 2.3 Monocytes # (Manual) 0.7 Toxic Vacuolation PRESENT Platelet Estimate DECREASED Plt Morphology Comment NORMAL RBC Morphology NOTED [place] Cells 3+ (>5) Schistocytes 1+ (0-2) VBG pH 7.43 VBG pCO2 26 VBG pO2 51 VBG HCO3 17 L VBG O2 Saturation 82.0 VBG Base Excess -5.3 Sodium 137 Potassium 4.3 Chloride 112 H Carbon Dioxide 14 L Anion Gap 15 BUN 24 H Creatinine 1.51 H Estim Creat Clear Calc 68.5 Estimated GFR 48 Random Glucose 75 Calcium 8.2 L D Total Bilirubin 1.9 H AST 98 H ALT 48 H Alkaline Phosphatase 101 Total Protein 6.7 Albumin 2.7 L Microbiology Microbiology Results: Microbiology 09/03/23 00:10 Blood - Venous Blood Culture - Final Strep agalactiae (Grp B) 09/03/23 00:10 Blood - Venous Blood Culture - Final Strep agalactiae (Grp B) Quality Stroke Does the patient have a stroke diagnosis?: No VTE Prior VTE?: No VTE Risk Level:: Medical - moderate - high VTE Device Contraindication: N/A - Device Ordered VTE Drug Contraindication: N/A - Med Ordered
[2023-09-05 05:50] LABS: Hematocrit 22.7 % (42.0-52.0); Hemoglobin 7.7 g/dl (14.0-18.0); Mean Corpuscular HGB Conc 33.9 g/dl (31.0-36.0); Mean Corpuscular Hemoglobin 28.4 pg (27.0-33.0); Mean Corpuscular Volume 83.8 fL (80.0-98.0); Mean Platelet Volume 11.9 fL (9.4-12.4); Platelet Count 148 X10*3/uL (160-400); Red Blood Count 2.71 X10*6/uL (4.60-5.80); Red Cell Distribution Width 19.5 % (11.0-16.0); White Blood Count 14.4 X10*3/uL (4.8-10.8)
[2023-09-05 06:11] LABS: Alanine Aminotransferase 44 U/L (0-40); Albumin Level 2.5 g/dL (3.5-5.0); Alkaline Phosphatase 105 U/L (39-117); Anion Gap 10 (12-20); Aspartate Amino Transferase 100 U/L (5-37); Bilirubin Total 1.4 mg/dL (0.0-1.0); Blood Urea Nitrogen 26 mg/dL (9-16); Calcium 7.9 mg/dL (8.4-10.2); Carbon Dioxide 17 mmol/L (22-29); Chloride 113 mmol/L (96-108); Creatinine Clr Calc Pharmacy 66.7; Estimated Glomerular Filt Rate 46; Glucose Random 79 mg/dL (60-115); Sodium 136 mmol/L (135-145); Total Protein 6.4 g/dL (6.5-8.0)
[2023-09-05 06:15] LABS: Band Neutrophils Percent 11 % (3-5); Eosinophils Absolute Manual 0.3 X10*3/uL (0.0-0.4); Eosinophils Percent Manual 2 % (0-4); Lymphocytes Absolute Manual 0.3 X10*3/uL (1.2-4.9); Lymphocytes Percent Manual 2 % (20-40); Metamyelocytes Absolute 0.1 X10*3/uL; Metamyelocytes Percent 1 %; Monocytes Absolute Manual 0.1 X10*3/uL (0.1-1.2); Monocytes Percent Manual 1 % (2-11); Neutrophils Absolute Manual 13.2 X10*3/uL (2.0-8.3); Neutrophils Percent Manual 81 % (45-73); Promyelocytes Absolute 0.3 X10*3/uL; Promyelocytes Percent 2 %; RBC Morphology NOTED
[2023-09-05 06:16] LABS: Acanthocytes 3+ (>5) /OIF; Ovalocytes 2+ (15-30) /OIF; Platelet Estimate NORMAL (NORMAL); Platelet Morphology Comment NORMAL; Polychromasia 1+ (0-2) /OIF; Schistocytes 3+ (>5) /OIF; Target Cells 1+ (5-14) /OIF; Tear Drop Cells 1+ (0-2) /OIF
--- NOTE | 2023-09-05 07:00 | CA_ITS ---
Transthoracic Echocardiogram Patient (Last, First, Middle): Jonathon Dan, Gender: Male Date of : 1965 Age: 57 Procedure Date: 09/05/2023 Procedure Type: Transthoracic Echocardiogram Location: ER Height: 182.88 cm Weight: 106.6 kg BSA: 2.28 m2 Heart Rate: 68 bpm BP: 102 / 64 mmHg Engine Setter: JULIA Referring MD: Santiago Nunn MD Symptoms: to rule out endocarditis Study Quality: Adequate ECG Rhythm: Sinus Conclusions: - Normal left ventricular size and systolic function. The visually estimated ejection fraction is between 55-60%. There is no evidence of regional wall motion abnormalities. - No obvious vegetation noted on visualized valves. Findings Left Ventricle Normal left ventricular size and systolic function. The visually estimated ejection fraction is between 55-60%. There is no evidence of regional wall motion abnormalities. Right Ventricle Normal right ventricular cavity size and systolic function. Aortic Valve Normal aortic valve structure and function. Mitral Valve Normal mitral valve structure and function. There is trace mitral valve regurgitation. Pulmonic Valve The pulmonic valve is likely normal. Tricuspid Valve Normal tricuspid valve structure. Significantly elevated right atrial pressure. Venous The inferior vena cava is dilated and collapses less than 50% with inspiration. Pericardium/Pleural There is no evidence of pericardial effusion. Measurements 2D Linear Measurements IVSd: 1.22 0.6-0.9/0.6-1.0 cm LVIDd: 5.19 3.9-5.3/4.2-5.9 cm LVIDd Index: 2.28 2.4-3.2/2.2-3.1 cm/m2 LVIDs: 3.39 2.0-3.6 cm LVPWd: 1.79 0.7-1.1 cm LA Diam: 4.40 2.7-3.8/3.0-4.0 cm LAIDs Index: 1.93 1.5-2.3 cm/m2 LV Mass: 428.03 67-162/88-224 g LV Mass Index: 187.73 43-95/49-115 g/m2 LVOT Diam: 2.20 3.0+(-)1.3 cm Mitral Valve MV Pk E: 0.99 MV PK A: 0.57 MV Decel Time: 232.00 E/A: 1.70 E'Lateral: 14.80 E'Medial: 10.00 E/E' Med: 9.90 E/E' Lat: 6.70 PHT: 68.00 MVA PHT: 3.24 Decel Roosevelt: 4.24 LVOT LVOT Pk Mayank: 0.89 LVOT Mn Mayank: 0.65 LVOT VTI: 0.22 LVOT Pk Grad: 3.00 LVOT Mn Grad: 2.00 LVOT Diam: 2.20 LVOT Area: 3.80 Diastolic Function MV Pk E: 0.99 MV Pk A: 0.57 E/A: 1.70 E'Medial: 10.00 E/E' Med: 9.90 E' Laterial: 14.80 E/E' Lat: 6.70 Tricuspid Valve RA Press: 15.00 Updated in Other Vendor System with Status of Final Manny Rich MD electronically signed on 09/05/2023 2:35:44 PM with status of Final
[2023-09-05] MEDS: rifAXIMin 550 MG TABLET PO ×2 (09:40→23:11)
[2023-09-05] MEDS: Multivitamin TABLET 1 TAB PO (09:40)
[2023-09-05] MEDS: Lidocaine 4 % Patch ADH..PATCH 2 PATCH TRANSDERMA (09:40)
[2023-09-05] MEDS: Midodrine HCl 5 MG TABLET 15 MG PO ×3 (09:40→23:11)
[2023-09-05] MEDS: Furosemide 40 MG TABLET PO (09:40)
[2023-09-05] MEDS: Lactulose 20 GM/30 ML SOLUTION PO ×4 (09:40→23:11)
[2023-09-05] MEDS: Acetaminophen 325 MG TABLET 650 MG PO ×2 (09:45→23:12)
--- NOTE | 2023-09-05 10:35 | MHC.CM.PN ---
Per MD in [facility]OUNDS, Patient is not yet medically cleared for dc (just up from ICU & monitoring Kidneys); Patient may benefit from a PT eval to assist with disposition. CM will follow.
--- NOTE | 2023-09-05 12:10 | PM.EVENT ---
Event Note Date of Service: 09/05/23 Event Note: The patient was seen and evaluated this morning Feels better overall, BP stable WBCs trending down To repeat blood cultures ID consult Ceftriaxone 2 gm follow BMP Time Spent With Patient Time: Total time managing care of this patient today ____ minutes.
[2023-09-05] MEDS: Enoxaparin Sodium 30 MG/0.3 ML SYRINGE SUBCUT (12:28)
[2023-09-05] MEDS: cefTRIAXone sodium 2 GM in 0.9 % Sodium Chloride 50 ML IV (12:28)
[2023-09-05 16:54] LABS: Vancomycin Random 8.1 mcg/mL (15-20)
[2023-09-05 21:33] LABS: ~Lactic Acid-LAB USE ONLY 2.8 mmol/L (0.5-2.0)
[2023-09-05] MEDS: traZODone HCL 25 MG HALFTAB PO (23:11)
[2023-09-06 03:27] VITALS: BP 103/57; PULSE 75; RESP 20; TEMP 36.9; O2SAT 96
[2023-09-06 06:00] VITALS: BMI 32.2
[2023-09-06 06:21] LABS: Hematocrit 21.4 % (42.0-52.0); Hemoglobin 7.3 g/dl (14.0-18.0); Mean Corpuscular HGB Conc 34.1 g/dl (31.0-36.0); Mean Corpuscular Hemoglobin 28.1 pg (27.0-33.0); Mean Corpuscular Volume 82.3 fL (80.0-98.0); Mean Platelet Volume 11.8 fL (9.4-12.4); Platelet Count 142 X10*3/uL (160-400); Red Cell Distribution Width 19.3 % (11.0-16.0)
[2023-09-06 06:39] LABS: Anion Gap 10 (12-20); Blood Urea Nitrogen 20 mg/dL (9-16); Carbon Dioxide 19 mmol/L (22-29); Chloride 114 mmol/L (96-108); Creatinine Clr Calc Pharmacy 83.3; Estimated Glomerular Filt Rate 59; Glucose Random 83 mg/dL (60-115); Sodium 139 mmol/L (135-145)
[2023-09-06 07:10] VITALS: BP 100/63; PULSE 64; RESP 18; TEMP 36.4; O2SAT 98
[2023-09-06] MEDS: Lactulose 20 GM/30 ML SOLUTION PO ×4 (10:30→22:20)
[2023-09-06] MEDS: Midodrine HCl 5 MG TABLET 15 MG PO ×3 (10:30→22:17)
[2023-09-06] MEDS: Furosemide 40 MG TABLET PO (10:30)
[2023-09-06] MEDS: rifAXIMin 550 MG TABLET PO ×2 (10:31→22:15)
[2023-09-06] MEDS: Lidocaine 4 % Patch ADH..PATCH 2 PATCH TRANSDERMA (10:31)
[2023-09-06] MEDS: Multivitamin TABLET 1 TAB PO (10:31)
[2023-09-06] MEDS: 0.9 % Sodium Chloride Flush 3 ML SYRINGE IVFLUSH ×3 (10:32→22:17)
[2023-09-06] MEDS: Acetaminophen 325 MG TABLET 650 MG PO ×2 (10:37→22:15)
[2023-09-06 11:10] VITALS: BP 112/67; PULSE 60; RESP 18; TEMP 36.6; O2SAT 99
--- NOTE | 2023-09-06 11:46 | HO.PM.IMPN ---
Subjective Subjective Date of Service: 09/06/23 Interval History: Seen and evaluated this morning Feels better overall repeated cultures still pending Review of Systems Review of Systems: Yes all other systems are reviewed and are negative Physical Exam Vital Signs: Vital Signs: Last Vital Signs Temp 97.8 F 09/06/23 11:10 Pulse 60 09/06/23 11:10 Resp 18 09/06/23 11:10 BP 112/67 09/06/23 11:10 Pulse Ox 99 09/06/23 11:10 O2 Del Method Room Air 09/06/23 11:10 BMI result Body Mass Index 32.2 Const: Other: Constitutional : Awake, interactive, not in distress Neck : Normal inspection, Supple Cardiovascular : RRR, no JVP, no lower extremity edema Respiratory : good bilateral air entry, no crackles, wheezes or rhonchi Gastrointestinal: soft, lax, Normal bowel sounds, abdomen mildly distended, Non tender Skin : Warm, Dry Neurological : Alert & oriented x3, No focal deficit Objective Data Active Medications Acetaminophen (Acetaminophen 325 Mg Tablet) 650 mg PO Q8H PRN PRN Reason: Pain, Moderate(Pain Scale 4-6) Last Admin: 09/06/23 10:37 Dose: 650 mg Documented By: ANN Enoxaparin Sodium (Enoxaparin Sodium 30 Mg/0.3 Ml Syringe) 30 mg SUBCUT Q24H [facility] Last Admin: 09/05/23 12:28 Dose: 30 mg Documented By: JEFFERSON Furosemide (Furosemide 40 Mg Tablet) 40 mg PO DAILY [facility]; Protocol Last Admin: 09/06/23 10:30 Dose: 40 mg Documented By: ANN Norepinephrine Bitartrate (Levophed) 8 mg in 250 mls @ 0 mls/hr IV .Q0M [facility]; Protocol Last Titration: 09/04/23 20:52 Dose: Infused Documented By: CARLINE Ceftriaxone Sodium 2 gm/ (Sodium Chloride) 50 mls @ 100 mls/hr IV Q24H [facility] Last Infusion: 09/05/23 13:45 Dose: Infused Documented By: JEFFERSON Lactulose (Lactulose 20 Gm/30 Ml Solution) 20 gm PO QID [facility] Last Admin: 09/06/23 10:30 Dose: 20 gm Documented By: ANN Lidocaine (Lidocaine 4 % Patch Adh..Patch) 2 patch TRANSDERMA DAILY [facility]; Protocol Last Admin: 09/06/23 10:31 Dose: 2 patch Documented By: ANN Melatonin (Melatonin 3 Mg Tablet) 12 mg PO BEDTIME PRN PRN Reason: Insomnia Midodrine (Midodrine Hcl 5 Mg Tablet) 15 mg PO TID [facility] Last Admin: 09/06/23 10:30 Dose: 15 mg Documented By: ANN Multivitamins/Vitamin C (Multivitamin Tablet) 1 tab PO DAILY [facility] Last Admin: 09/06/23 10:31 Dose: 1 tab Documented By: ANN Rifaximin (Rifaximin 550 Mg Tablet) 550 mg PO BID [facility] Last Admin: 09/06/23 10:31 Dose: 550 mg Documented By: ANN Sodium Chloride (0.9 % Sodium Chloride Flush 3 Ml Syringe) 3 ml IVFLUSH QSHIFT [facility] Last Admin: 09/06/23 10:32 Dose: 3 ml Documented By: ANN Trazodone HCl (Trazodone Hcl 25 Mg Halftab) 25 mg PO BEDTIME PRN PRN Reason: insomnia Last Admin: 09/05/23 23:11 Dose: 25 mg Documented By: DONAVAN Labs 09/06/23 05:50 09/06/23 05:50 Labs: Laboratory Results - last 24 hr 09/03/23 09/05/23 09/06/23 06:32 15:17 05:50 MCV 82.3 MCH 28.1 MCHC 34.1 RDW 19.3 H Plt Count 142 L MPV 11.8 Absolute Nucleated RBC 0.000 Nucleated RBC % (auto) 0.0 Anion Gap 10 L Estim Creat Clear Calc 83.3 Estimated GFR 59 Random Glucose 83 Lactic Acid F/U @ 4Hr 2.8 H* Calcium 8.0 L Random Vancomycin 8.1 L Assessment and Plan (1) Acute kidney failure: Status: Acute (2) Septic shock: Status: Acute (3) Bacteremia due to group B Streptococcus: Status: Acute Plan a 57-year-old male with pertinent history of alcoholic cirrhosis, gastroesophageal reflux disease who was admitted to ICU for septic shock and MAKENNA. growing Strep grp B in blood. Septic shock,resolved Streptococcus group B Bacteremia Likely related to recent endoscopic and colonoscopic 2 weeks ago complicated by bacterial translocation CT chest showing possible pneumonia TTE ruled out endocarditis Continue 2 gm ceftriaxone Pending ID consult Pending repeat cultures Acute kidney injury Possibly due to septic shock Creatinine improving to 1.27 I's and O's follow BMP Hx Liver cirrhosis continue lactulose and rifaximin Continue Lasix DVT Prophylaxis Lovenox The patient will need overnight stay for Bacteremia treatment with IV antibiotics pending ID evaluation and recommendations Quality Stroke Does the patient have a stroke diagnosis?: No VTE Prior VTE?: No VTE Risk Level:: Medical - moderate - high VTE Device Contraindication: N/A - Device Ordered VTE Drug Contraindication: N/A - Med Ordered
[2023-09-06] MEDS: Enoxaparin Sodium 30 MG/0.3 ML SYRINGE SUBCUT (14:48)
[2023-09-06] MEDS: cefTRIAXone sodium 2 GM in 0.9 % Sodium Chloride 50 ML IV (14:48)
[2023-09-06 15:17] VITALS: BP 107/60; PULSE 62; RESP 18; TEMP 36.2; O2SAT 98
[2023-09-06 19:17] VITALS: BP 121/71; PULSE 72; RESP 19; TEMP 36.4; O2SAT 99
[2023-09-06] MEDS: Melatonin 3 MG TABLET 12 MG PO (22:16)
[2023-09-06] MEDS: Benzonatate 100 MG CAPSULE 200 MG PO (22:16)
[2023-09-06] MEDS: traZODone HCL 25 MG HALFTAB PO (22:17)
[2023-09-06 23:25] VITALS: BP 100/62; PULSE 80; RESP 20; TEMP 36.6; O2SAT 97
[2023-09-07 03:38] VITALS: BP 95/64; PULSE 78; RESP 19; TEMP 37.4; O2SAT 96
[2023-09-07 06:00] VITALS: BMI 31.9
[2023-09-07 07:09] LABS: Hematocrit 21.7 % (42.0-52.0); Hemoglobin 7.5 g/dl (14.0-18.0); Mean Corpuscular HGB Conc 34.6 g/dl (31.0-36.0); Mean Corpuscular Hemoglobin 28.4 pg (27.0-33.0); Mean Corpuscular Volume 82.2 fL (80.0-98.0); Platelet Count 114 X10*3/uL (160-400); Red Blood Count 2.64 X10*6/uL (4.60-5.80); White Blood Count 7.1 X10*3/uL (4.8-10.8)
[2023-09-07 07:15] LABS: Anion Gap 10 (12-20); Blood Urea Nitrogen 17 mg/dL (9-16); Calcium 7.9 mg/dL (8.4-10.2); Carbon Dioxide 20 mmol/L (22-29); Chloride 112 mmol/L (96-108); Creatinine Clr Calc Pharmacy 107.4; Estimated Glomerular Filt Rate > 60; Glucose Random 86 mg/dL (60-115); Potassium 4.1 mmol/L (3.3-5.1); Sodium 138 mmol/L (135-145)
[2023-09-07 07:44] VITALS: BP 100/59; PULSE 65; RESP 16; TEMP 36.5; O2SAT 96
[2023-09-07] MEDS: Lactulose 20 GM/30 ML SOLUTION PO ×2 (08:53→12:33)
[2023-09-07] MEDS: Lidocaine 4 % Patch ADH..PATCH 2 PATCH TRANSDERMA (08:53)
[2023-09-07] MEDS: Midodrine HCl 5 MG TABLET 15 MG PO (08:54)
[2023-09-07] MEDS: rifAXIMin 550 MG TABLET PO (08:54)
[2023-09-07] MEDS: Multivitamin TABLET 1 TAB PO (08:54)
[2023-09-07] MEDS: Furosemide 40 MG TABLET PO (08:54)
[2023-09-07] MEDS: 0.9 % Sodium Chloride Flush 3 ML SYRINGE IVFLUSH (08:55)
--- NOTE | 2023-09-07 09:40 | PM.DS ---
DS: Providers Provider Date of Service: 09/07/23 Date of admission: 09/03/23 06:47 Primary care physician: Arin Nelson MD Consults: 09/05/23 12:09 Consult to Infectious Diseases [place]ine [place]ing [place] [facility] [place] Reason for consultation: Streptococcus Bacteremia DS: Diagnosis Discharge Diagnosis (1) Acute kidney failure: Status: Resolved (2) Septic shock: Status: Resolved (3) Bacteremia due to group B Streptococcus: Status: Resolved (4) Pneumonia: Status: Acute (5) Hypotension: Status: Resolved (6) Fever: Status: Resolved DS: Summary Hospital Course Hospital Course: Admission note JESSICA Dan is a 57-year-old male with past medical history of alcohol-related cirrhosis, GERD presented to the ED after he noticed shaking of his hands. Apparently he would dropped off his family members to airport yesterday, when he came back to home he noticed that his hands were shaking. His doctor had asked him to present to ER if he noticed shaky hands as a concern for hepatic encephalopathy. In the ED he was found to be hypotensive CT chest abdomen and pelvis did not show any source of infection except for a possible very small pneumonia. He had 1 episode of vomiting 2 days ago, takes lactulose for bowel movements and has normal bowel movements. He has occasional coughs, producing some whitish color sputum. Denies any runny nose, denies sore throat, denies urinary symptoms. Hospital course The patient was admitted to ICU for Septic shock secondary to Streptococcus group B Bacteremia which likely related to pneumonia seen on CT scan or recent endoscopic and colonoscopic 2 weeks ago complicated by bacterial translocation. Repeated blood cultures remained negative. TTE ruled out endocarditis. He recieved 4 days of 2 gm IV Ceftriaxone. Evaluated by infection disease specialist who recommended 10 more days of Levofloxacin to finish total of 2 weeks of antibiotics. Developed Acute kidney injury due to septic shock on admission which recovered well as creatinine improved to baseline of 1 with usage of IV fluids and avoiding nephrotoxins. Regarding Hx Liver cirrhosis with continue lactulose and rifaximin along with Lasix. Discharge plan Continue Levaquin for 10 more days Increase physical activity as tolerated Tessalon as needed for cough Time Attestation Discharge Coordination Time (in mins): 36 Quality: Safe Use of Opioids Does Pt have an Active Cancer Diagnosis on the Problem List?: No Quality: Stroke Does the patient have a stroke diagnosis?: No Physical Exam Vital Signs: Vital Signs: Last Vital Signs Temp 97.7 F 09/07/23 07:44 Pulse 65 09/07/23 07:44 Resp 16 09/07/23 07:44 BP 100/59 L 09/07/23 07:44 Pulse Ox 96 09/07/23 07:44 O2 Del Method Room Air 09/07/23 07:44 BMI result Body Mass Index 31.9 Const: Other: Constitutional : Awake, interactive, not in distress Neck : Normal inspection, Supple Cardiovascular : RRR, no JVP, no lower extremity edema Respiratory : good bilateral air entry, no crackles, wheezes or rhonchi Gastrointestinal: soft, lax, Normal bowel sounds, abdomen mildly distended, Non tender Skin : Warm, Dry Neurological : Alert & oriented x3, No focal deficit DS: Data Data Completed and Pending Completed studies during hospitalization [Text1]: Procedures Control Bleeding in Gastrointestinal Tract, Via Natural or Artificial Opening Endoscopic (07/03/23) Destruction of Ascending Colon, Via Natural or Artificial Opening Endoscopic (08/18/23) Destruction of Sigmoid Colon, Via Natural or Artificial Opening Endoscopic (08/18/23) Destruction of Stomach, Pylorus, Via Natural or Artificial Opening Endoscopic (07/03/23) Detoxification Services for Substance Abuse Treatment (05/31/23) Extirpation of Matter from Penis, Open Approach (09/11/22) Inspection of Lower Intestinal Tract, Via Natural or Artificial Opening Endoscopic (07/18/23) Inspection of Upper Intestinal Tract, Via Natural or Artificial Opening Endoscopic (08/18/23) Resection of Prepuce, External Approach (09/11/22) Transfusion of Nonautologous Platelets into Peripheral Vein, Percutaneous Approach (09/11/22) Transfusion of Nonautologous Red Blood Cells into Peripheral Vein, Percutaneous Approach (08/18/23) Labs on day of discharge: Laboratory Results - last 24 hr 09/07/23 06:35 WBC 7.1 RBC 2.64 L Hgb 7.5 L Hct 21.7 L MCV 82.2 MCH 28.4 MCHC 34.6 RDW 19.0 H Plt Count 114 L MPV Not Reportable Absolute Nucleated RBC 0.000 Nucleated RBC % (auto) 0.0 Sodium 138 Potassium 4.1 Chloride 112 H Carbon Dioxide 20 L Anion Gap 10 L BUN 17 H Creatinine 0.98 Estim Creat Clear Calc 107.4 Estimated GFR > 60 Random Glucose 86 Calcium 7.9 L Preliminary micro results at discharge 09/05/23 13:04 Blood Culture - Preliminary Blood - Venous No growth after 24 hours. 09/05/23 13:01 Blood Culture - Preliminary Blood - Venous No growth after [address] scan - chest: Radiologist's impression: ITS Impressions Chest X-Ray 09/03/23 00:17 IMPRESSION: The study is significantly limited due to very low lung volumes. There is stable lingular atelectasis or scarring. The well-visualized lung koo are otherwise clear. Abdomen/Pelvis CT 09/03/23 03:58 IMPRESSION: 1. Linear consolidation at the lung bases likely representing atelectasis. 2. Cirrhotic-appearing liver. Mild splenomegaly. 3. Mild right colonic wall thickening possibly portal colopathy 4. Significant soft tissue anasarca. 5. Stable T11 and L2 compression fractures. 6. Multiple ventral hernias containing fat. Fleischner guidelines were followed. Chest CT 09/03/23 03:58 IMPRESSION: 1. Linear consolidation at the lung bases likely representing atelectasis. 2. Cirrhotic-appearing liver. Mild splenomegaly. 3. Mild right colonic wall thickening possibly portal colopathy 4. Significant soft tissue anasarca. 5. Stable T11 and L2 compression fractures. 6. Multiple ventral hernias containing fat. Fleischner guidelines were followed. Venous Duplex 09/03/23 08:10 IMPRESSION: 1. No DVT demonstrated in the right lower extremity. 2. Redemonstrated enlarged right groin lymph node measuring 2.0 cm in short axis. 3. Subcutaneous edema along the right calf. Discharge Plan Discharge Anticipated Discharge Date/Time: 09/07/23 09:34 Patient Disposition: Home, Self-Care Discharge Diagnosis: Streptococcal bacteremia Septic shock Referrals: Arin Nelson MD [Primary Care Provider] - 1 Week Discharge Medications: New benzonatate 100 mg Capsule 200 mg PO TID Qty: 24 0RF levofloxacin 750 mg tablet 750 mg PO Q24H Qty: 10 0RF Continued rifaximin 550 mg tablet 550 mg PO BID 90 Days Qty: 180 1RF multivitamin [Daily-Sherry] Tablet 1 tab PO DAILY Qty: 90 0RF (DME) Ultra-Light Rollator Misc See Rx Instructions .Route Qty: 1 0RF Rx Instructions: As directed lidocaine 5 % adhesive patch,medicated 1 patch topical DAILY lactulose 20 gram/30 mL Solution 20 g PO QID Qty: 3000 2RF (BOB) jenni Donovan See Rx Instructions .Route Qty: 1 0RF Rx Instructions: As directed melatonin 5 mg Tablet 12 mg PO BEDTIME PRN (Reason: Insomnia) zinc sulfate [Zinc-220] 50 mg zinc (220 mg) Capsule 220 mg PO DAILY 90 Days Qty: 396 0RF midodrine 5 mg tablet 5 mg PO TID omeprazole 40 mg capsule,delayed release(DR/EC) 40 mg PO DAILY@0630 acetaminophen [Tylenol Extra Strength] 500 mg tablet 1,000 mg PO BID MDD 2000 PRN (Reason: pain) Rx Instructions: Pls do not take more than 4 tablets in 24h. trazodone 50 mg tablet 50 mg PO BEDTIME furosemide 40 mg tablet 40 mg PO DAILY Qty: 90 0RF Hold Instructions: hold until follow up with GI on Tuesday Discharge Orders: Discharge Order (Routine); Ordered 09/07/23 Ordered By: Jyothi Mcnally Diet: Low salt diet Activity on Discharge: As tolerated Stand Alone Forms: Patient Portal Discharge page Print Language: French Care Plan Goals: Read below Health Concerns: Read below Plan of Treatment: Read below Assessment: Continue Levaquin for 10 more days Increase physical activity as tolerated Tessalon as needed for cough Discharge Date/Time: 09/07/23 12:30
--- NOTE | 2023-09-07 10:36 | MHC.CM.PN ---
Patient has been medically cleared for dc to home today, self care.
[2023-09-07] MEDS: Benzonatate 100 MG CAPSULE 200 MG PO (12:33)
--- NOTE | 2023-09-07 16:52 | P.CNID_ITS ---
History of Present Illness Data of Consult Service Date: 09/06/23 Requesting physician: Jyothi Mcnally Primary Care Provider: Arin Nelson MD HPI Reason for consult: Group G strep bacteremia He presents with chills and feeling feverish. He has temperatu of 103.8 and tachycardia. He has Group G strep bacteremia. Review of Systems 2 Review of Systems: Yes all other systems are reviewed and are negative PMFSH Past Medical History Medical History Cirrhosis Anemia Abdominal wall swelling Hyperammonemia Hepatic steatosis Diarrhea resulting from infection of the bowel mucosa Liver lesion Substance use Alcohol use disorder Anemia Chronic kidney disease Alcohol dependence Family History Family history: reviewed and not pertinent Surgical History Surgical History Hx of colonoscopy Hx of esophagogastroduodenoscopy History of urologic surgery H/O varicose vein stripping S/P bariatric surgery Social History Social History Household Members: Family Household Members Other:: sister Housing: Apartment Do you presently have visiting nurse or other home services: No Alcohol intake: former Patient Tobacco Use Status: Former Tobacco user Quit Date: 05/30/23 Tobacco use type: Cigarette e-Cigarette/Vaping Use: Never Used Second Hand Smoke Exposure: No Substance Use Type: Crack/Cocaine and Marijuana Advance Directives Date on File: 06/08/23 service: No Current occupational status: employed Meds Allergies Allergy/AdvReac Type Severity Reaction Status Date / Time No Known Allergies Allergy Verified 09/02/23 23:48 Home Medications ?Medication ?Instructions ?Recorded ?Confirmed ?Last Taken ?Type melatonin 5 mg tablet 12 mg PO BEDTIME PRN Insomnia 07/18/23 09/03/23 09/02/23 History lidocaine 5 % topical patch 1 patch topical DAILY 08/18/23 09/03/23 09/02/23 History acetaminophen 500 mg tablet 1,000 mg PO BID PRN pain 09/03/23 09/03/23 09/02/23 History (Tylenol Extra Strength) midodrine 5 mg tablet 5 mg PO TID 09/03/23 09/03/23 09/02/23 History omeprazole 40 mg capsule,delayed 40 mg PO DAILY@0630 09/03/23 09/03/23 09/02/23 History release trazodone 50 mg tablet 50 mg PO BEDTIME 09/03/23 09/03/23 09/02/23 History Physical Exam 2 Vital Signs: Vital Signs: Last Vital Signs Temp 97.7 F 09/07/23 07:44 Pulse 65 09/07/23 07:44 Resp 16 09/07/23 07:44 BP 100/59 L 09/07/23 07:44 Pulse Ox 96 09/07/23 07:44 O2 Del Method Room Air 09/07/23 07:44 BMI result Body Mass Index 31.9 Const: General: cooperative HEENT: Head: Yes normal to inspection Face and sinus: Yes normal facial exam Mouth: Normal oral and palatal mucosa present Teeth and gingiva: d entition normal Eyes: General: appearance normal, both eyes and all related structures P upils: Equal, round and reactive pupils present Resp: Effort & Inspection: normal respiratory effort Cardio: Rate: regular rate Rhythm: regular rhythm GI: Palpation (GI): Soft to palpation and nontender : General: Yes no CVA tenderness Back/Spine/Pelvis: Back: no CVA tenderness Skin: General skin exam: no rashes or lesions noted Neuro: General: moves all extremities Cranial nerves: Yes Equal, round and reactive pupils present Extrem: General: Yes normal to inspection Psych: Appearance: grossly normal Results Labs 09/07/23 06:35 09/07/23 06:35 Labs: Short CBC 09/07/23 Range/Units 06:35 WBC 7.1 (4.8-10.8) X10*3/uL Hgb 7.5 L (14.0-18.0) g/dl Hct 21.7 L (42.0-52.0) % Plt Count 114 L (160-400) X10*3/uL BMP 09/07/23 06:35 Sodium 138 Potassium 4.1 Chloride 112 H Carbon Dioxide 20 L BUN 17 H Creatinine 0.98 Calcium 7.9 L Microbiology Microbiology Results: Microbiology 09/05/23 13:04 Blood - Venous Blood Culture - Preliminary No growth after 48 hours. 09/05/23 13:01 Blood - Venous Blood Culture - Preliminary No growth after 48 hours. 09/03/23 00:10 Blood - Venous Blood Culture - Final Strep agalactiae (Grp B) 09/03/23 00:10 Blood - Venous Blood Culture - Final Strep agalactiae (Grp B) Assessment and Plan (1) Bacteremia due to group B Streptococcus: Status: Acute (2) Acute kidney failure: Status: Acute (3) Septic shock: Status: Acute He has Group G strep infection. There is possible skin source He has no evidence endocarditis. Plan Would give po Levaquin for 10 days finish course.
== END 2023-09-07 12:30 | disposition home or self-care (01) | DRG 720 ==
LOC: HO.ED 09-03 07:02 → HO.EDOVER 09-03 07:18 → HO.ICU 09-03 07:53 → HO.IMC 09-05 05:47
PROVIDERS: Internal Medicine Critical Care Medicine; Admitting Provider Physician Assistant Medical; Emergency Provider Emergency Medicine; PCP Internal Medicine; Visit Provider Student in an Organized Health Care Education/Training Program
DX: A41.9 Sepsis, unspecified organism (principal); N17.0 Acute kidney failure with tubular necrosis; R65.21 Severe sepsis with septic shock; K76.82 Hepatic encephalopathy; K21.9 Gastro-esophageal reflux disease without esophagitis; B95.1 Streptococcus, group B, as the cause of diseases classified elsewhere; J18.9 Pneumonia, unspecified organism; K70.30 Alcoholic cirrhosis of liver without ascites; F10.20 Alcohol dependence, uncomplicated; E66.9 Obesity, unspecified; Z68.31 Body mass index [BMI] 31.0-31.9, adult; Z20.822 Contact with and (suspected) exposure to COVID-19; Z87.891 Personal history of nicotine dependence; Z79.899 Other long term (current) drug therapy
CPT/HCPCS: 36415; 71045; 71260; 74177; 80048; 80053; 80076; 80202; 80307; 81001; 82140; 82272; 82803; 83605; 83690; 83735; 83880; 84100; 84145; 84484; 85007; 85025; 85027; 85610; 86850; 86900; 86901; 87040; 87147; 87205; 87502; 87635; 93005; 93308; 93971; 99285; J0456; J0692; J0696; J1650; J3370; P9047; Q9957; Q9967

== ENCOUNTER → 2023-09-02 23:51 | Outpatient (BNV) | payer BC, SELFPAY | PROVIDERS: Admitting Provider Physician Assistant Medical; Emergency Provider Emergency Medicine; Visit Provider Internal Medicine Cardiovascular Disease | DX: R53.1 Weakness (principal); R00.0 Tachycardia, unspecified; I49.3 Ventricular premature depolarization; I45.10 Unspecified right bundle-branch block | CPT/HCPCS: 93010 ==

== ENCOUNTER 2023-09-03 06:47 | Outpatient (BNV) | payer BC, SELFPAY | END 2023-09-05 07:00 | PROVIDERS: Admitting Provider Physician Assistant Medical; Emergency Provider Emergency Medicine; Visit Provider Internal Medicine Cardiovascular Disease | DX: I34.0 Nonrheumatic mitral (valve) insufficiency (principal) | CPT/HCPCS: 93308 ==

== ENCOUNTER → 2023-09-03 06:47 | Outpatient (BNV) | payer BC, SELFPAY | PROVIDERS: Admitting Provider Physician Assistant Medical; Emergency Provider Emergency Medicine; PCP Internal Medicine; Visit Provider Internal Medicine | DX: R78.81 Bacteremia (principal); N17.9 Acute kidney failure, unspecified; B95.1 Streptococcus, group B, as the cause of diseases classified elsewhere; A41.9 Sepsis, unspecified organism; R65.21 Severe sepsis with septic shock | CPT/HCPCS: 99499 ==

== ENCOUNTER → 2023-09-03 06:47 | Outpatient (BNV) | payer BC, SELFPAY | PROVIDERS: Admitting Provider Physician Assistant Medical; Emergency Provider Emergency Medicine; Visit Provider Student in an Organized Health Care Education/Training Program | DX: N17.9 Acute kidney failure, unspecified (principal); R78.81 Bacteremia; A41.9 Sepsis, unspecified organism; R65.21 Severe sepsis with septic shock; B95.1 Streptococcus, group B, as the cause of diseases classified elsewhere; J18.9 Pneumonia, unspecified organism; I95.9 Hypotension, unspecified; R50.9 Fever, unspecified | CPT/HCPCS: 99232; 99239; 99499 ==

== ENCOUNTER → 2023-09-03 06:47 | Outpatient (BNV) | payer BC, SELFPAY | PROVIDERS: Admitting Provider Physician Assistant Medical; Emergency Provider Emergency Medicine; Visit Provider Internal Medicine Critical Care Medicine | DX: N17.9 Acute kidney failure, unspecified (principal); A41.9 Sepsis, unspecified organism; R65.21 Severe sepsis with septic shock; I95.9 Hypotension, unspecified; R50.9 Fever, unspecified; I99.8 Other disorder of circulatory system | CPT/HCPCS: 99291 ==

== ENCOUNTER 2023-09-20 10:48 | Outpatient (REF) | payer BC, SELFPAY | END 2023-09-20 10:49 | disposition home or self-care (01) | LOC: HO.LAB 10:48 | PROVIDERS: Absent Provider Physician Assistant Medical; Visit Provider Internal Medicine | DX: Z13.89 Encounter for screening for other disorder (principal) ==

== ENCOUNTER → 2023-09-20 10:54 | Outpatient (BNV) | payer BC, SELFPAY | PROVIDERS: PCP Internal Medicine; Referring Provider Internal Medicine; Visit Provider Internal Medicine | DX: D64.9 Anemia, unspecified (principal); K70.31 Alcoholic cirrhosis of liver with ascites | CPT/HCPCS: 99215 ==

== ENCOUNTER 2023-09-21 10:51 | Outpatient (AMB) | payer BC, SELFPAY ==
--- NOTE | 2023-09-21 10:53 | MHC.OFFVIS ---
Vital Signs 09/21/23 10:55 Height 6 ft Weight 224 lb 13.944 oz BMI 30.5 BP 90/61 Blood Pressure Location Lt brachial Position Sitting Pulse 75 Intake Visit Reasons: 4 week follow up Intake Note: Jonathon presents in the office as a 4 week follow up. CC: Only the right leg is swelled up but the left is starting to swell up. He states that he had a BM today and it was diarrhea. Director Of Design Required: No Allergies No Known Allergies Allergy (Verified 09/21/23 10:55) HPI Comments Details: This is a 57-year-old gentleman with past medical history of polysubstance use disorder including alcohol and cocaine, who is here for follow up. Pt was seen in consultation in hospital on 05/31/23 (anemia/GIB) and 06/16/23 (HE). Here accompanied by his sister who is very involved in his care and in fact advocated to move him from [place] (where he was living by himself) to her house in [place]. Main issue is daytime sleepiness with limited night time sleep. Otherwise, reports good energy, trying to keep up with activity levels. Has been eating good - though not restricting salt and red meat as much as he should. No abd pain, N,V, change in bowel habits. Sober from etOH since May 2023. 07/25/23: Comes in for post-hospitalisation follow up. Since May he has had at least 4 hospitalisations mainly for worsening HE. Reports that had not been taking Rifaximin at home but now has with since discharge. Compliant with lactulose. Also underwent [place] most recent hospitalisation as was becoming logistically to coordinate as OP due to his frequent admissions. This was unfortunately poor prep and inadequate for polyp detection, but no mucosal abnormality or large masses were noted. Patient also worsening fatigue, states that is also this time sitting down or recliner. Sister also mentions but he seems more short of breath at rest. Recent echo normal. No hepatohydrothorax on chest x-ray 07/18/2023 08/29/23: Admitted to hospital earlier this month for worsening HE and anemia. s/p EGD and colo - R colon AVMS s/p APC. (Dr Funk) Currently, reports mental status is good. However noted to be more sleepy during the day. This is despite taking lactulose, rifaximin and zinc. Patient and sister confirm at least 3-4 soft/mushy bowel movements every day. Most recent CT abdomen and pelvis suggests possible left-sided splenorenal shunt. Current meds: Lactulose 20ml 4 times a day Rifaximin 550 BID Zinc furosemide 40 once daily Supplemental shakes not covered by his insurance. 09/21/23: Current meds: Zinc sulfate 220 OD Omeprazole 40 OD Vit B-1 100 OD Xifaxan 550 BID Midodrine 5 TID Melatonin PRN Trazodone 25 Qnightly Furosemide 40 once daily tessalon pearls TID x 14 days Lactulose 30ml TID Currently no abd pain, nausea, vomiting. Has appt with IR next week for occlusion of spontaneous splenorenal shunt to help with recurrent HE leading to multiple hospital admissions. Referral to [facility] transplant hep requested - visit pending. [facility] Medical History (Updated 09/21/23 @ 11:31 by Brenna Mena MD) Cirrhosis Portosystemic shunt, spontaneous Anemia Abdominal wall swelling Hyperammonemia Hepatic steatosis Diarrhea resulting from infection of the bowel mucosa Liver lesion Substance use Alcohol use disorder Anemia Chronic kidney disease Alcohol dependence Surgical History Hx of colonoscopy Hx of esophagogastroduodenoscopy History of urologic surgery H/O varicose vein stripping S/P bariatric surgery Social History Household Members: Family Household Members Other:: sister Housing: Apartment Do you presently have visiting nurse or other home services: No Alcohol intake: former Patient Tobacco Use Status: Former Tobacco user Tobacco use type: Cigarette e-Cigarette/Vaping Use: Never Used Second Hand Smoke Exposure: No Substance Use Type: Crack/Cocaine and Marijuana Advance Directives Date on File: 06/08/23 service: No Current occupational status: employed Review of Systems Const All systems reviewed & are unremarkable except as noted in HPI and below Physical Exam Vital Signs: Last Vital Signs Pulse 75 09/21/23 10:55 BP 90/61 09/21/23 10:55 BMI result Body Mass Index 30.5 NAD Undernourished Non icteric No abd tenderness, mild distention R>L A/OX3, no asterixis Assessment & Plan Assessment & Plan (1) Decompensated hepatic cirrhosis: Code(s): K72.90 - Hepatic failure, unspecified without coma; K74.60 - Unspecified cirrhosis of liver Category: Medical (2) Alcohol use disorder: Code(s): F10.90 - Alcohol use, unspecified, uncomplicated Category: Social Hx (3) Acute hepatic encephalopathy: Code(s): K76.82 - Hepatic encephalopathy Category: Medical (4) Shortness of breath: Code(s): R06.02 - Shortness of breath Category: Medical Plan MELD-Na 18 Child Wiseman Class B Remains sober from etOH >3 months! Encouraged compliance with meds including rifaximin and lactulose. Advised to take lactulose preferentially during daytime, so that he has not waking up at nighttime to go to the bathroom. Reviewed that appears to have a spontaneous portosystemic shunt, that may be contributing to his severe hepatic encephalopathy despite lactulose + rifaximin + zinc. Has been seen by IR and plan for possible embolization. No evidence of varices or ascites on previous assessments. Advised on increasing protein intake with food leslie BCAA. Reviewed that will need to discuss patient assistance with his social media strategist/case resource manager through PCP's office for coverage of protein shakes.. Plan: - covert encephalopathy based on hx. Has had at least 3 admission for HE since May 2023. PLan for BRTO of spontaneous splenorenal shunt later this month. -Advised use of lactulose for goal 2-3BMs per day. Rifaximin 550 b.i.d. Zinc supplementation. OK to increase lactulose for goal 3-4 BMs for worsening confusion but to call office if persists despite this >1 day. - no large volume ascites on exam today. Continue furosemide 40mg PO for now, add spironolactone 50. Will likely need 20/40 vs shellie monotherapy 100. - BMP and urine lytes in a week. - Extensive counseling for low salt diet done - sister also advised on the same. Handout with meal guidance provided. - No varices on EGD 08/2023. Next EGD in 2024. - HCC screening due in 11/2023. CT triple phased ordered. - Counseled on nutrition including protein intake. Add night time snack. Sack Repairer referral pending. Protein shakes not covered by insurance it seams. - PFT's pending for SOB which does not appear to be 2/2 volume overload. - No NSAIDs. - Transplant candidacy: visit at [facility] hep pending. - Repeat colo for asymptomatic CRC screening in 7-10 years. Follow up 3 months Orders: Orders Basic Metabolic Panel 09/21/23 Z79.899 - Other manager intermediate (current) drug therapy Sodium Urine Random 09/21/23 Z79.899 - Other manager intermediate (current) drug therapy Potassium Urine Random 09/21/23 Z79.899 - Other manager intermediate (current) drug therapy Medications: New spironolactone take once daily in the morning. 50 mg PO DAILY 90 tabs 0RF Refilled furosemide 40 mg PO DAILY 90 tabs 0RF zinc sulfate (Zinc-220) 220 mg (4.4 x 50 mg zinc (220 mg)) PO DAILY 396 caps 0RF 90 days Coding Level of Care Code Est Pt Level 5 (43317) Diagnoses Decompensated hepatic cirrhosis K72.90; K74.60 Alcohol use disorder F10.90 Acute hepatic encephalopathy K76.82 Shortness of breath R06.02
[2023-09-21 10:55] VITALS: BP 90/61; PULSE 75; BMI 30.5
== END 2023-09-21 11:38 | disposition home or self-care (01) ==
PROVIDERS: PCP Registered Nurse; Visit Provider Internal Medicine
DX: K72.90 Hepatic failure, unspecified without coma (principal); K74.60 Unspecified cirrhosis of liver; F10.90 Alcohol use, unspecified, uncomplicated; K76.82 Hepatic encephalopathy; R06.02 Shortness of breath
CPT/HCPCS: 99214

== ENCOUNTER → 2023-09-21 10:51 | Outpatient (BNVA) | payer BC, SELFPAY | PROVIDERS: PCP Registered Nurse; Visit Provider Internal Medicine ==

== ENCOUNTER 2023-10-05 09:55 | Outpatient (REF) | payer BC, SELFPAY ==
[2023-10-05 10:38] LABS: Hematocrit 24.7 % (42.0-52.0); Hemoglobin 8.5 g/dl (14.0-18.0); Mean Corpuscular HGB Conc 34.4 g/dl (31.0-36.0); Mean Corpuscular Hemoglobin 26.9 pg (27.0-33.0); Mean Corpuscular Volume 78.2 fL (80.0-98.0); Mean Platelet Volume 10.2 fL (9.4-12.4); Platelet Count 178 X10*3/uL (160-400); Red Blood Count 3.16 X10*6/uL (4.60-5.80); Red Cell Distribution Width 17.2 % (11.0-16.0); White Blood Count 5.7 X10*3/uL (4.8-10.8)
[2023-10-05 10:48] LABS: INTERNATIONAL NORM RATIO 1.6 (0.9-1.1); Prothrombin Time 19.3 SEC (11.1-13.3)
[2023-10-05 12:08] LABS: Alanine Aminotransferase 19 U/L (0-40); Alkaline Phosphatase 161 U/L (39-117); Anion Gap 12 (12-20); Aspartate Amino Transferase 41 U/L (5-37); Bilirubin Total 1.8 mg/dL (0.0-1.0); Blood Urea Nitrogen 16 mg/dL (9-16); Calcium 8.1 mg/dL (8.4-10.2); Carbon Dioxide 21 mmol/L (22-29); Chloride 110 mmol/L (96-108); Estimated Glomerular Filt Rate 49; Glucose Random 121 mg/dL (60-115); Sodium 138 mmol/L (135-145); Total Protein 7.6 g/dL (6.5-8.0)
[2023-10-05 12:25] LABS: Ferritin 826 ng/mL (20-250); Vitamin D 25-OH Total 4.1 ng/mL (>30)
[2023-10-05 12:40] LABS: Folate 10.1 ng/mL (> or = 4.0); Vitamin B12 > 2000 pg/mL (200-900)
== END 2023-10-05 09:56 | disposition home or self-care (01) ==
LOC: HO.LAB 09:55
PROVIDERS: PCP Internal Medicine; Visit Provider Internal Medicine
DX: K72.90 Hepatic failure, unspecified without coma (principal); K74.60 Unspecified cirrhosis of liver
CPT/HCPCS: 36415; 80053; 82306; 82607; 82728; 82746; 85027; 85610

== ENCOUNTER 2023-10-14 09:21 | Outpatient (REF) | payer BC, SELFPAY ==
[2023-10-14 11:26] LABS: Anion Gap 11 (12-20); Blood Urea Nitrogen 15 mg/dL (9-16); Calcium 8.4 mg/dL (8.4-10.2); Carbon Dioxide 19 mmol/L (22-29); Chloride 110 mmol/L (96-108); Estimated Glomerular Filt Rate 53; Glucose Random 103 mg/dL (60-115); Potassium 4.7 mmol/L (3.3-5.1); Sodium 135 mmol/L (135-145)
== END 2023-10-14 09:22 | disposition home or self-care (01) ==
LOC: HO.LAB 09:21
PROVIDERS: Visit Provider Internal Medicine
DX: Z79.899 Other long term (current) drug therapy (principal)
CPT/HCPCS: 36415; 80048; 84133; 84300

== ENCOUNTER 2023-10-23 09:19 | Inpatient (IN) | payer BC, OTHER, SELFPAY ==
--- NOTE | ~2023-10-23 | XR_ITS ---
EXAMINATION: PORTABLE CHEST 1 VIEW CLINICAL INFORMATION: cough. COMPARISON: 09/03/2023. TECHNIQUE: Portable frontal view of the chest was obtained. FINDINGS: The lungs are hypoexpanded. Mild linear subsegmental segmental atelectatic change in the left. No focal infiltrate, effusion, edema, or pneumothorax. Cardiac and mediastinal silhouettes are within normal limits for technique. No acute bony abnormality seen. XR/XR chest 1V IMPRESSION: Hypoexpanded with minimal left basilar atelectasis.
[2023-10-23 09:25] VITALS: BP 99/61; PULSE 78; RESP 16; TEMP 36.9; O2SAT 100; BMI 24.4
--- NOTE | 2023-10-23 10:08 | ED_ITS ---
HPI - General Adult General Chief complaint: Weakness Stated complaint: dizziness, fatigue Time Seen by Provider: 10/23/23 09:58 Source: patient Mode of arrival: ambulatory Limitations: no limitations History of Present Illness HPI narrative: This is a 58 years old male with history of chronic liver disease presented to the emergency department with a chief complaint of fatigue dizziness. Denies any fever chills vomiting and diarrhea. Denies any abdominal pain or chest pain Onset (ago): day(s) (1) Radiation: non-radiation Severity: mild Relieving factors: none Exacerbating factors: none Associated symptoms: denies other symptoms Related Data Home Medications ?Medication ?Instructions ?Recorded ?Confirmed melatonin 5 mg tablet 12 mg PO BEDTIME PRN Insomnia 07/18/23 09/20/23 lidocaine 5 % topical patch 1 patch topical DAILY 08/18/23 09/20/23 acetaminophen 500 mg tablet 1,000 mg PO BID PRN pain 09/03/23 09/20/23 (Tylenol Extra Strength) omeprazole 40 mg capsule,delayed 40 mg PO DAILY@0630 09/03/23 09/20/23 release trazodone 50 mg tablet 50 mg PO BEDTIME 09/03/23 09/20/23 benzonatate 100 mg capsule 200 mg PO TID 09/20/23 09/20/23 guaifenesin 200 mg/5 mL oral liquid 200 mg PO Q4H PRN 09/21/23 lactulose 10 gram/15 mL oral ml PO 09/21/23 solution multivitamin with folic acid 400 1 tab PO DAILY 09/21/23 mcg tablet (Daily-Sherry (with folic acid)) Previous Rx's ?Medication ?Instructions ?Recorded jenni #1 ea 09/21/22 walker (Ultra-Light Rollator misc) #1 ea 06/07/23 rifaximin 550 mg tablet 550 mg PO BID 90 days #180 tabs 07/14/23 levofloxacin 750 mg tablet 750 mg PO Q24H #10 tabs 09/07/23 furosemide 40 mg tablet 40 mg PO DAILY #90 tabs 09/21/23 spironolactone 50 mg tablet 50 mg PO DAILY #90 tabs 09/21/23 zinc sulfate 50 mg zinc (220 mg) 220 mg (4.4 x 50 mg zinc (220 mg)) 09/21/23 capsule (Zinc-220) PO DAILY 90 days #396 caps furosemide 20 mg tablet 20 mg PO DAILY #90 tabs 10/07/23 midodrine 5 mg tablet 5 mg PO TID #30 tabs 10/07/23 Allergies Allergy/AdvReac Type Severity Reaction Status Date / Time No Known Allergies Allergy Verified 10/23/23 09:27 Review of Systems 2 Constitutional: Constitutional: Reports no additional constitutional complaints ENT: Reports system reviewed and no additional complaints, except as documented Cardiovascular: Cardiovascular: Reports no additional cardiovascular complaints Musculoskeletal: Musculoskeletal: Reports no additional musculoskeletal complaints [facility] Past Medical History Attestation statement: The following information was validated with the patient. [facility] Narrative: Chronic liver disease Medical History Cirrhosis Portosystemic shunt, spontaneous Anemia Abdominal wall swelling Hyperammonemia Hepatic steatosis Diarrhea resulting from infection of the bowel mucosa Liver lesion Substance use Alcohol use disorder Anemia Chronic kidney disease Alcohol dependence Surgical History Hx of colonoscopy Hx of esophagogastroduodenoscopy History of urologic surgery H/O varicose vein stripping S/P bariatric surgery Social History Social History Household Members: Family Household Members Other:: sister Housing: Apartment Do you presently have visiting nurse or other home services: No Alcohol intake: former Patient Tobacco Use Status: Former Tobacco user Tobacco use type: Cigarette e-Cigarette/Vaping Use: Never Used Second Hand Smoke Exposure: No Substance Use Type: Crack/Cocaine and Marijuana Advance Directives: Yes Advance Directives on File: Yes Advance Directives Date on File: 06/08/23 Do you have a plan to hurt others: No Plan service: No Current occupational status: employed Physical Exam ED Vital Signs: Vital Signs - 24 hr 10/23/23 09:25 10/23/23 12:20 10/23/23 15:12 Temperature 98.5 F 98.1 F 98.2 F Pulse Rate 78 54 56 Respiratory Rate 16 18 17 Blood Pressure 99/61 102/64 106/63 Pulse Oximetry 100 99 100 Oxygen Delivery Method Room Air Room Air Room Air BMI result Body Mass Index 24.4 Const General: cooperative and comfortable Nutritional Appearance: average body habitus Orientation/consciousness: patient oriented x3 Limitations: no limitations HENMT Head: Yes normal to inspection Ears: hearing grossly normal bilaterally General nose exam: Normal external nose present Mouth: Normal oral and palatal mucosa present Neck Neck: Yes normal visual inspection and Yes full ROM Chest Chest palpation & inspection: normal inspection of the chest Resp Effort & Inspection: normal respiratory effort and able to speak in complete sentences Auscultation: clear to auscultation bilaterally Cardio Jugular venous distension: no JVD Rate: regular rate Rhythm: regular rhythm GI Inspection: Yes normal to inspection Palpation (GI): Soft to palpation, not firm and nontender Auscultation: normal bowel sounds Skin General skin exam: no rashes or lesions noted and elasticity normal Lesions: no lesions Rashes: no rashes Neuro General: patient oriented x3 Course Reevaluation(s) Reevaluation #1: spoke with hospitalist Time: 16:43 Medications Administered Discontinued Medications Generic Name Dose Route Start Last Admin Trade Name Freq PRN Reason Stop Dose Admin Sodium Chloride 1,000 mls @ 999 mls/hr 10/23/23 10:15 10/23/23 13:48 Ns IVCONT 10/23/23 11:15 Infused .Q1H1M VALERIE Infusion Lactulose 30 gm 10/23/23 13:48 10/23/23 13:56 Lactulose 20 Gm/30 Ml Solution PO 10/23/23 13:49 30 gm ONCE ONE Administration Sodium Polystyrene Sulfonate 30 gm 10/23/23 15:04 10/23/23 15:46 Sodium Polystyrene Sulfon/Sorb 15 Gm/60 Ml Oral.Susp PO 10/23/23 15:05 30 gm ONCE ONE Administration Medical Decision Making Medical Decision Making [facility] Narrative: Patient presented with confusion will obtain labs we will administer fluid and reassess Differential Diagnosis Differential Diagnoses: The differential diagnosis associated with the presentation includes Broad differential diagnosis including hepatic encephalopathy, electrolyte abnormality, occult infection Admission/Observation Consideration of admission/observation: Escalation of care including admission/observation considered Consult Healthcare Provider Management of the patient was discussed with: Hospitalist Lab Data [facility] Lab Attestation statement: I reviewed the patient's lab results. 10/23/23 11:05 10/23/23 11:05 Labs: Lab Results 10/23/23 10/23/23 Range/Units 11:05 12:18 WBC 4.6 L (4.8-10.8) X10*3/uL RBC 3.10 L (4.60-5.80) X10*6/uL Hgb 8.0 L (14.0-18.0) g/dl Hct 23.7 L (42.0-52.0) % MCV 76.5 L (80.0-98.0) fL MCH 25.8 L (27.0-33.0) pg MCHC 33.8 (31.0-36.0) g/dl RDW 18.6 H (11.0-16.0) % Plt Count 129 L D (160-400) X10*3/uL MPV 9.8 (9.4-12.4) fL Immature Gran % (Auto) 0.2 (0.0-0.4) % Neut % (Auto) 49.4 (45-73) % Lymph % (Auto) 32.7 (20-40) % Milam % (Auto) 11.8 H (2-11) % Eos % (Auto) 4.8 H (0-4) % Baso % (Auto) 1.1 (0-2) % Lymph # (Auto) 1.5 (1.2-4.9) X10*3/uL [place] # (Auto) 0.5 (0.1-1.2) X10*3/uL Eos # (Auto) 0.2 (0.0-0.4) X10*3/uL Baso # (Auto) 0.1 (0.0-0.2) X10*3/uL Abs Immat Gran (auto) 0.01 (0.00-0.03) X10*3/uL Absolute Neuts (auto) 2.3 (2.0-8.3) x10*3/uL Absolute Nucleated RBC 0.000 (0.0-0.012) X10*3/uL Nucleated RBC % (auto) 0.0 (0.0-0.2) /100WBC PT 16.9 H (11.1-13.3) SEC INR 1.4 H (0.9-1.1) Sodium 140 (135-145) mmol/L Potassium 5.3 H (3.3-5.1) mmol/L Chloride 117 H (96-108) mmol/L Carbon Dioxide 19 L (22-29) mmol/L Anion Gap 9 L (12-20) BUN 18 H (9-16) mg/dL Creatinine 1.53 H (0.5-1.4) mg/dL Estim Creat Clear Calc 59.1 Estimated GFR 47 Random Glucose 90 (60-115) mg/dL Calcium 8.3 L (8.4-10.2) mg/dL Total Bilirubin 0.9 (0.0-1.0) mg/dL AST 57 H (5-37) U/L ALT 26 (0-40) U/L Alkaline Phosphatase 130 H (39-117) U/L Ammonia 97 H (13-55) umol/L Troponin I High Sens 3.5 D (<3.5-35.0) ng/L Total Protein 6.8 (6.5-8.0) g/dL Albumin 2.7 L (3.5-5.0) g/dL Urine Color Yellow Urine Appearance Clear Urine pH 5.5 (5.0-9.0) Ur Specific [place] 1.015 (1.005-1.025) Urine Protein Negative (Neg-Trace) mg/dL Urine Glucose (UA) Negative (Negative) mg/dL Urine Ketones Negative (Negative) mg/dL Urine Blood Negative (Negative) Urine Nitrite Negative (Negative) Ur Leukocyte Esterase Negative (Negative) Urine RBC 0-2 (0-2) /HPF Urine WBC 0-5 (0-5) /HPF Ur Squamous Epith Cells 0-2 (0-2) /HPF Urine Bacteria None Seen (None Seen) Hyaline Casts 3-5 (0-2) /LPF Granular Casts Present Independent Historian Clinical information obtained from an independent historian. History obtained from or confirmed by: Other (Sister) Discharge Plan Discharge Clinical Impression: Acute hepatic encephalopathy Altered mental status Qualifiers: Altered mental status type: unspecified Qualified Code(s): R41.82 - Altered mental status, unspecified Patient Disposition: Admitted As Inpatient Print Language: Arabic
[2023-10-23] MEDS: 0.9 % Sodium Chloride 1,000 ML 999 ML IVCONT (11:08)
[2023-10-23 11:10] LABS: MANUAL DIFF FLAG NO
[2023-10-23 11:17] LABS: Red Cell Distribution Width 18.6 % (11.0-16.0); SCAN SMEAR FLAG 1
[2023-10-23 11:18] LABS: Ammonia 97 umol/L (13-55)
[2023-10-23 11:19] LABS: Basophils Absolute Auto 0.1 X10*3/uL (0.0-0.2); Basophils Percent Auto 1.1 % (0-2); Eosinophils Absolute Auto 0.2 X10*3/uL (0.0-0.4); Eosinophils Percent Auto 4.8 % (0-4); Hematocrit 23.7 % (42.0-52.0); Imm Gran Abs Auto 0.01 X10*3/uL (0.00-0.03); Imm Gran Pct Auto 0.2 % (0.0-0.4); Lymphocytes Absolute Auto 1.5 X10*3/uL (1.2-4.9); Lymphocytes Percent Auto 32.7 % (20-40); Mean Corpuscular HGB Conc 33.8 g/dl (31.0-36.0); Mean Corpuscular Hemoglobin 25.8 pg (27.0-33.0); Mean Corpuscular Volume 76.5 fL (80.0-98.0); Mean Platelet Volume 9.8 fL (9.4-12.4); Monocytes Absolute Auto 0.5 X10*3/uL (0.1-1.2); Monocytes Percent Auto 11.8 % (2-11); Neutrophils Absolute Auto 2.3 x10*3/uL (2.0-8.3); Neutrophils Percent Auto 49.4 % (45-73); PLT ABN DIST 1; Platelet Count 129 X10*3/uL (160-400); White Blood Count 4.6 X10*3/uL (4.8-10.8)
[2023-10-23 11:22] LABS: INTERNATIONAL NORM RATIO 1.4 (0.9-1.1); Prothrombin Time 16.9 SEC (11.1-13.3)
[2023-10-23 11:27] LABS: Alanine Aminotransferase 26 U/L (0-40); Albumin Level 2.7 g/dL (3.5-5.0); Alkaline Phosphatase 130 U/L (39-117); Anion Gap 9 (12-20); Aspartate Amino Transferase 57 U/L (5-37); Bilirubin Total 0.9 mg/dL (0.0-1.0); Blood Urea Nitrogen 18 mg/dL (9-16); Calcium 8.3 mg/dL (8.4-10.2); Carbon Dioxide 19 mmol/L (22-29); Chloride 117 mmol/L (96-108); Creatinine Clr Calc Pharmacy 59.1; Estimated Glomerular Filt Rate 47; Glucose Random 90 mg/dL (60-115); Potassium 5.3 mmol/L (3.3-5.1); Sodium 140 mmol/L (135-145); Total Protein 6.8 g/dL (6.5-8.0)
[2023-10-23 11:33] LABS: Troponin-I High Sensitivity 3.5 ng/L (<3.5-35.0)
[2023-10-23 12:20] VITALS: BP 102/64; PULSE 54; RESP 18; TEMP 36.7; O2SAT 99
[2023-10-23 12:29] LABS: Appearance Urine Clear; Color Urine Yellow; Glucose Urine UA Negative (Negative); Leukocyte Esterase Urine Negative (Negative); Nitrite Urine Negative (Negative); PH 5.5 (5.0-9.0); Specific Gravity - Urine 1.015 (1.005-1.025); Urine Blood Negative (Negative); Urine Ketones Negative (Negative); Urine Protein Negative (Neg-Trace)
[2023-10-23 13:01] LABS: Bacteria Urine None Seen (None Seen); Granular Casts Urine Present; RBC Urine 0-2 /HPF (0-2); Squamous Epithelial Cell Urine 0-2 /HPF (0-2); WBC Urine 0-5 /HPF (0-5)
[2023-10-23] MEDS: Lactulose 20 GM/30 ML SOLUTION 30 GM PO (13:56)
--- NOTE | 2023-10-23 14:28 | ECG_ITS ---
Test Reason : ELEVATED K Blood Pressure : / mmHG Vent. Rate : 066 BPM Atrial Rate : 066 BPM P-R Int : 178 ms QRS Dur : 134 ms QT Int : 462 ms P-R-T Axes : 021 -31 017 degrees QTc Int : 484 ms Normal sinus rhythm Left axis deviation Right bundle branch block Abnormal ECG When compared with ECG of 02-SEP-2023 23:57, No significant changes seen Referred By: Suhail Biswas Electronically Signed By:Manny Rich
[2023-10-23 15:12] VITALS: BP 106/63; PULSE 56; RESP 17; TEMP 36.8; O2SAT 100
[2023-10-23] MEDS: Sodium Polystyrene Sulfon/Sorb 15 GM/60 ML ORAL.SUSP 30 GM PO (15:46)
--- NOTE | 2023-10-23 16:06 | PM.IMHP ---
History of Present Illness Date of Service: 10/23/23 Chief Complaint: Dizziness, confusion A 58-year-old male with a history of alcohol dependence (last drank May 30, 2023), pancytopenia, CKD, GERD, and alcoholic cirrhosis with hepatic encephalopathy was brought to the ED due to altered mental status, as reported by his sister, who oversees his medications. According to his sister, there was an emergency yesterday preventing her from administering his medications, including lactulose, which he takes four times a day. She believes he missed his doses. Upon evaluation in the ED, he was found to have an elevated ammonia level of 94, pancytopenia, mild hyperkalemia (k 5.3), and mild acute kidney injury (MAKENNA) on CKD. He has since received lactulose, and at the time of evaluation, he was alert and oriented to self, place, and date, which his sister noted as an improvement. She also mentioned that he had tremors in his hand (likely asterixis) previously, which have now resolved. The patient denies recent illness, fever, chills, or abdominal pain. Review of Systems Review of Systems: Gen: no fever Resp: no sob, no cough CV: no chest, no GUTIERREZ, no leg edema GI: No n/v, no abd pain Neuro: confusion earlier but resolved. Yes all other systems are reviewed and are negative [facility] Medical History Cirrhosis Portosystemic shunt, spontaneous Anemia Abdominal wall swelling Hyperammonemia Hepatic steatosis Diarrhea resulting from infection of the bowel mucosa Liver lesion Substance use Alcohol use disorder Anemia Chronic kidney disease Alcohol dependence Surgical History Hx of colonoscopy Hx of esophagogastroduodenoscopy History of urologic surgery H/O varicose vein stripping S/P bariatric surgery Social History Household Members: Family Household Members Other:: sister Housing: Apartment Do you presently have visiting nurse or other home services: No Alcohol intake: former Patient Tobacco Use Status: Former Tobacco user Tobacco use type: Cigarette e-Cigarette/Vaping Use: Never Used Second Hand Smoke Exposure: No Use of substances other than those prescribed or required for medical reasons: No Substance Use Type: Crack/Cocaine and Marijuana Currently Displaying Signs/Symptoms of Drug Intoxication Withdrawal: No Have you been hit, kicked, punched, or otherwise hurt by someone within the past year? If so, by whom?: No Do you feel safe in your current relationship?: No Is there a partner from a previous relationship who is making you feel unsafe now?: No Are you made to feel afraid or neglected: No Advance Directives: Yes Advance Directives on File: Yes Advance Directives Date on File: 06/08/23 Do you have a plan to hurt others: No Plan Recently lost weight without trying: No How much weight loss: Not applicable Eating poorly because of decreased appetite: No Nutrition screen score: 0 Nutrition Risks: No Nutritional Risk Poor oral hygiene: No service: No Current occupational status: employed [employer] Allergies Allergy/AdvReac Type Severity Reaction Status Date / Time No Known Allergies Allergy Verified 10/23/23 22:34 Home Medications ?Medication ?Instructions ?Recorded ?Confirmed ?Last Taken ?Type melatonin 5 mg tablet 10 mg PO BEDTIME PRN Insomnia 07/18/23 10/23/23 09/02/23 History lidocaine 5 % topical patch 1 patch topical DAILY PRN Pain 08/18/23 10/23/23 09/02/23 History acetaminophen 500 mg tablet 1,000 mg PO BID PRN pain 09/03/23 10/23/23 09/02/23 History (Tylenol Extra Strength) omeprazole 40 mg capsule,delayed 40 mg PO DAILY@0630 09/03/23 10/23/23 10/23/23 History release trazodone 50 mg tablet 50 mg PO BEDTIME 09/03/23 10/23/23 09/02/23 History benzonatate 100 mg capsule 200 mg PO TID PRN Cough 09/20/23 10/23/23 Unknown History guaifenesin 200 mg/5 mL oral liquid 200 mg PO Q4H PRN Cough 09/21/23 10/23/23 Unknown History lactulose 10 gram/15 mL oral 30 ml PO QID 09/21/23 10/23/23 10/23/23 History solution multivitamin with folic acid 400 1 tab PO DAILY 09/21/23 10/23/23 10/23/23 History mcg tablet (Daily-Sherry (with folic acid)) polyethylene glycol 3350 17 17 g PO DAILY PRN Constipation 10/23/23 10/23/23 Unknown History gram/dose oral powder vitamin A 3,000 mcg (10,000 unit) 1 cap PO DAILY 10/23/23 10/23/23 10/23/23 History capsule Physical Exam Vital Signs and Narrative: Vital Signs: Last Vital Signs Temp 98.2 F 10/23/23 15:12 Pulse 56 10/23/23 15:12 Resp 17 10/23/23 15:12 BP 106/63 10/23/23 15:12 Pulse Ox 100 10/23/23 15:12 O2 Del Method Room Air 10/23/23 15:12 BMI result Body Mass Index 24.4 General: AO X 3, no acute distress Resp: CTA bilateral CVS: S1,S2,RRR GI: +BS, NT, no distention Skin: No rash Neuro: motor grossly intact, no asterixes Psych: appropriate affect Results Labs 10/23/23 11:05 10/24/23 05:35 Labs: Laboratory Results - last 24 hr 10/23/23 10/23/23 11:05 12:18 MCV 76.5 L MCH 25.8 L MCHC 33.8 RDW 18.6 H Plt Count 129 L D MPV 9.8 Immature Gran % (Auto) 0.2 Neut % (Auto) 49.4 Lymph % (Auto) 32.7 [place] % (Auto) 11.8 H Eos % (Auto) 4.8 H Baso % (Auto) 1.1 Lymph # (Auto) 1.5 [place] # (Auto) 0.5 Eos # (Auto) 0.2 Baso # (Auto) 0.1 Abs Immat Gran (auto) 0.01 Absolute Neuts (auto) 2.3 Absolute Nucleated RBC 0.000 Nucleated RBC % (auto) 0.0 PT 16.9 H INR 1.4 H Anion Gap 9 L Estim Creat Clear Calc 59.1 Estimated GFR 47 Random Glucose 90 Calcium 8.3 L Total Bilirubin 0.9 AST 57 H ALT 26 Alkaline Phosphatase 130 H Ammonia 97 H Troponin I High Sens 3.5 D Total Protein 6.8 Albumin 2.7 L Urine Color Yellow Urine Appearance Clear Urine pH 5.5 Ur Specific [place] 1.015 Urine Protein Negative Urine Glucose (UA) Negative Urine Ketones Negative Urine Blood Negative Urine Nitrite Negative Ur Leukocyte Esterase Negative Urine RBC 0-2 Urine WBC 0-5 Ur Squamous Epith Cells 0-2 Urine Bacteria None Seen Hyaline Casts 3-5 Granular Casts Present Imaging Radiologist's Impressions: Impressions Chest X-Ray 10/23/23 10:50 IMPRESSION: Hypoexpanded with minimal left basilar atelectasis. Assessment and Plan (1) Acute hepatic encephalopathy: Status: Acute (2) Hyperkalemia: Status: Acute (3) Cirrhosis: Status: Acute Plan 58/m with alcoholic liver cirrhosis here with acute metabolic encephalopathy secondary to hepatic encephalopathy from missing meds Hepatic Encephalopathy from missing meds--improved already with lactulose in ED -continue lactulose per his usual schedule -Continue Rifaximin -no evidence of acute infection MAKENNA on CKD 2, mild, monitor, I don't believe a case of hepato-renal syndrome Chronic metabolic acidosis--from CKD, liver diseaes, bicab stable 19 to 21, monitor Mild hyperkalemia, 5.3, given Kayexelate, monitor and repeat labs tomorrow, if remains high reduce aldactone dose Chronic Pancytopenia (with stable chronic anemia)--Stable, no bleeding, no indication for transfusion Coagulopathy d/t chronic liver disease, INR 1.4 monitor Hypoalbuminemia d/t liver diseae--balanced diet Chronic hypotension--due to liver disease, BP is ok, continue midodrine Cirrhosis of liver due to alcohol, he hasn't drank since May 30, 2023 (congratulated!). Continue Lasix, Aldactone, Midodrine. He has an appointment next tuesday (October 27) at [facility] to evaluated for liver transplant DVT prophylaxis : device, no chemical d/t anemia, high INR At least 2 midnights hospitalization for management of acutely decompensated alcoholic cirrhosis with hepatic encephalopathy requiring close monitoring of mentation, titration of lactulose dosing Quality Stroke Does the patient have a stroke diagnosis?: No VTE Prior VTE?: No VTE Risk Level:: Medical - low VTE Device Contraindication: N/A - Device Ordered VTE Drug Contraindication: Treatment Not Tolerated
[2023-10-23 16:43] LABS: Amphetamine Screen Urine Not Detected (Not Detect); Barbiturates, Urine Not Detected (Not Detect); Benzodiazepines Screen Urine Not Detected (Not Detect); Buprenorphine Scr Not Detected (Not Detect); Cannabinoid Screen Urine Not Detected (Not Detect); Cocaine Screen Urine Not Detected (Not Detect); Fentanyl, urine Not Detected (Not Detect); Methadone Screen, Urine Not Detected (Not Detect); Opiate Screen Urine Not Detected (Not Detect); Oxycodone Screen Urine Not Detected (Not Detect); Phencyclidine Screen Urine Not Detected (Not Detect)
--- NOTE | 2023-10-23 17:13 | PHA.MEDREC ---
Pharmacy Consult ? Medication Reconciliation Pharmacy has completed the medication reconciliation. Spoke with patients sister at bedside. She confirmed patient is taking benzonatate prn for cough and only on furosemide 20mg daily (not 40). She was not sure about the zinc but does not think he is taking it anymore so leaving off med list for now. She verified patient took his morning medications today.
--- NOTE | 2023-10-23 18:02 | PC.NURSE ---
patient continues to ambulate indepedently to the bathroom. 20IV in left AC. resting quietly in room with visitor at the bedside.
[2023-10-23 19:15] VITALS: BP 121/68; PULSE 54; RESP 18; TEMP 36.9; O2SAT 100
[2023-10-23 19:20] VITALS: BMI 24.2
[2023-10-23] MEDS: rifAXIMin 550 MG TABLET PO (19:50)
[2023-10-23] MEDS: Lactulose 20 GM/30 ML SOLUTION PO (19:50)
[2023-10-23] MEDS: Midodrine HCl 5 MG TABLET PO (19:50)
[2023-10-23] MEDS: traZODone HCL 50 MG TABLET PO (19:50)
[2023-10-23] MEDS: 0.9 % Sodium Chloride Flush 3 ML SYRINGE IVFLUSH (19:54)
--- NOTE | 2023-10-23 22:49 | PC.NURSE ---
This RN assumed care at 1999, pt came in with dizziness/confusion/shakiness, this is all resolved rod. Pt is alert and oriented to self, time, situation. Pt denies pain/N/V. Pt has a steady gait with ambulation. BSx4, lungs clear throughout. Some slight edema noted to ankles, per sister it has improved immensely. #20 LAC patent/asymptomatic. Pt has had 4 embolization coils placed in R abdomen: by [facility] Dr. Braun/Dr. Joseph ([phone]) Pt has a Hx of alcohol induced cirrhosis, last drink was on May 30, plans on going to [facility] for eval for a liver transplant.
[2023-10-23 23:19] VITALS: BP 104/57; PULSE 70; RESP 16; TEMP 36.2; O2SAT 97
[2023-10-24] MEDS: Omeprazole 40 MG CAPSULE.DR PO (05:14)
[2023-10-24 06:15] LABS: Alanine Aminotransferase 27 U/L (0-40); Albumin Level 2.7 g/dL (3.5-5.0); Alkaline Phosphatase 135 U/L (39-117); Ammonia 101 umol/L (13-55); Anion Gap 12 (12-20); Aspartate Amino Transferase 59 U/L (5-37); Bilirubin Total 1.1 mg/dL (0.0-1.0); Blood Urea Nitrogen 17 mg/dL (9-16); Calcium 8.1 mg/dL (8.4-10.2); Carbon Dioxide 19 mmol/L (22-29); Chloride 113 mmol/L (96-108); Creatinine Clr Calc Pharmacy 64.2; Estimated Glomerular Filt Rate 52; Glucose Random 86 mg/dL (60-115); Potassium 5.2 mmol/L (3.3-5.1); Sodium 139 mmol/L (135-145); Total Protein 6.8 g/dL (6.5-8.0)
[2023-10-24 07:57] VITALS: BP 106/58; PULSE 66; RESP 18; TEMP 36.9; O2SAT 98
--- NOTE | 2023-10-24 08:07 | P.PNIM_ITS ---
Subjective Subjective Date of Service: 10/24/23 Interval History: f/u on hepatic encephalopathy he is now lucid yet ammonia level has gone up, K is still slightly high Physical Exam 2 Vital Signs: Vital Signs: Last Vital Signs Temp 98.4 F 10/24/23 07:57 Pulse 66 10/24/23 07:57 Resp 18 10/24/23 07:57 BP 106/58 L 10/24/23 07:57 Pulse Ox 98 10/24/23 07:57 O2 Del Method Room Air 10/24/23 07:57 BMI result Body Mass Index 24.2 General: AO X 3, no acute distress Resp: CTA bilateral CVS: S1,S2,RRR GI: +BS, NT, no distention Skin: No rash Neuro: motor grossly intact Psych: appropriate affect Objective Data Active Medications Acetaminophen (Acetaminophen 325 Mg Tablet) 650 mg PO Q6H PRN PRN Reason: Pain, Mild (Pain Scale 1-3), fever or headache Benzonatate (Benzonatate 100 Mg Capsule) 200 mg PO TID PRN PRN Reason: Cough Calcium Carbonate (Calcium Carbonate 750 Mg Tab.Chew) 750 mg PO Q4H PRN PRN Reason: Heartburn Furosemide (Furosemide 20 Mg Tablet) 20 mg PO DAILY [facility]; Protocol Guaifenesin (Guaifenesin 200 Mg/10 Ml 10 Ml Liquid) 10 ml PO Q4H PRN PRN Reason: Cough Lactulose (Lactulose 20 Gm/30 Ml Solution) 20 gm PO QID [facility] Last Admin: 10/23/23 19:50 Dose: 20 gm Documented By: VIRGINIA Lidocaine (Lidocaine 4 % Patch Adh..Patch) 1 patch TRANSDERMA DAILY PRN PRN Reason: Pain Magnesium Hydroxide (Milk Of Magnesia 30 Ml Oral.Susp) 30 ml PO DAILY PRN PRN Reason: Constipation Melatonin (Melatonin 3 Mg Tablet) 6 mg PO BEDTIME PRN PRN Reason: Insomnia Midodrine (Midodrine Hcl 5 Mg Tablet) 5 mg PO TID [facility] Last Admin: 10/23/23 19:50 Dose: 5 mg Documented By: VIRGINIA Multivitamins/Vitamin C (Multivitamin Tablet) 1 tab PO DAILY [facility] Omeprazole (Omeprazole 40 Mg Capsule.) 40 mg PO DAILY@0630 [facility] Last Admin: 10/24/23 05:14 Dose: 40 mg Documented By: VIRGINIA Polyethylene Glycol (Polyethylene Glycol 3350 17 Gm Powd.Pack) 17 gm PO DAILY PRN PRN Reason: Constipation Rifaximin (Rifaximin 550 Mg Tablet) 550 mg PO BID [facility] Last Admin: 10/23/23 19:50 Dose: 550 mg Documented By: VIRGINIA Sodium Chloride (0.9 % Sodium Chloride Flush 3 Ml Syringe) 3 ml IVFLUSH QSHIFT [facility] Last Admin: 10/23/23 19:54 Dose: 3 ml Documented By: VIRGINIA Spironolactone (Spironolactone 25 Mg Tablet) 25 mg PO DAILY [facility]; Protocol Trazodone HCl (Trazodone Hcl 50 Mg Tablet) 50 mg PO BEDTIME [facility] Last Admin: 10/23/23 19:50 Dose: 50 mg Documented By: VIRGINIA Labs 10/23/23 11:05 10/24/23 05:35 Labs: Laboratory Results - last 24 hr 10/23/23 10/23/23 10/24/23 11:05 12:18 05:35 MCV 76.5 L MCH 25.8 L MCHC 33.8 RDW 18.6 H Plt Count 129 L D MPV 9.8 Immature Gran % (Auto) 0.2 Neut % (Auto) 49.4 Lymph % (Auto) 32.7 [place] % (Auto) 11.8 H Eos % (Auto) 4.8 H Baso % (Auto) 1.1 Lymph # (Auto) 1.5 [place] # (Auto) 0.5 Eos # (Auto) 0.2 Baso # (Auto) 0.1 Abs Immat Gran (auto) 0.01 Absolute Neuts (auto) 2.3 Absolute Nucleated RBC 0.000 Nucleated RBC % (auto) 0.0 PT 16.9 H INR 1.4 H Anion Gap 9 L 12 Estim Creat Clear Calc 59.1 64.2 Estimated GFR 47 52 Random Glucose 90 86 Calcium 8.3 L 8.1 L Total Bilirubin 0.9 1.1 H AST 57 H 59 H ALT 26 27 Alkaline Phosphatase 130 H 135 H Ammonia 97 H 101 H Troponin I High Sens 3.5 D Total Protein 6.8 6.8 Albumin 2.7 L 2.7 L Urine Color Yellow Urine Appearance Clear Urine pH 5.5 Ur Specific [place] 1.015 Urine Protein Negative Urine Glucose (UA) Negative Urine Ketones Negative Urine Blood Negative Urine Nitrite Negative Ur Leukocyte Esterase Negative Urine RBC 0-2 Urine WBC 0-5 Ur Squamous Epith Cells 0-2 Urine Bacteria None Seen Hyaline Casts 3-5 Granular Casts Present Urine Opiates Screen Not Detected Ur Buprenorphine Scrn Not Detected Ur Oxycodone Screen Not Detected Urine Methadone Screen Not Detected Urine Fentanyl Screen Not Detected Ur Barbiturates Screen Not Detected Ur Phencyclidine Scrn Not Detected Ur Amphetamines Screen Not Detected U Benzodiazepines Scrn Not Detected Urine Cocaine Screen Not Detected U Marijuana (THC) Screen Not Detected Assessment and Plan (1) Acute hepatic encephalopathy: Status: Acute (2) Altered mental status: Status: Acute Plan 58/m with alcoholic liver cirrhosis here with acute metabolic encephalopathy secondary to hepatic encephalopathy from missing meds Hepatic Encephalopathy from missing meds--improved already with lactulose in ED -continue lactulose per his usual schedule -Continue Rifaximin -no evidence of acute infection MAKENNA on CKD 2, mild, monitor, I don't believe a case of hepato-renal syndrome, Creatine is better and within his baseline Chronic metabolic acidosis--from CKD, liver diseaes, bicab stable 19 to 21, monitor Mild hyperkalemia, 5.2, given Kayexelate. Give lokelma 10 mg and reduce aldactone to 25 Chronic Pancytopenia (with stable chronic anemia)--Stable, no bleeding, no indication for transfusion Coagulopathy d/t chronic liver disease, INR 1.4 monitor Hypoalbuminemia d/t liver diseae--balanced diet Chronic hypotension--due to liver disease, BP is ok, continue midodrine Cirrhosis of liver due to alcohol, he hasn't drank since May 30, 2023 (congratulated!). Continue Lasix, Aldactone, Midodrine. He has an appointment next tuesday (October 27) at [facility] to evaluated for liver transplant DVT prophylaxis : device, no chemical d/t anemia, high INR need for inaptient: management of hepatic encephalopath with frequent lactulose dosing and monitoring response and ammonia level continue lactulose, recheck ammonia and if down, discharge Quality Stroke Does the patient have a stroke diagnosis?: No VTE Prior VTE?: No VTE Risk Level:: Medical - low VTE Device Contraindication: N/A - Device Ordered VTE Drug Contraindication: Treatment Not Tolerated
[2023-10-24] MEDS: Furosemide 20 MG TABLET PO (08:54)
[2023-10-24] MEDS: rifAXIMin 550 MG TABLET PO ×2 (08:54→20:22)
[2023-10-24] MEDS: Lactulose 20 GM/30 ML SOLUTION PO ×2 (08:54→11:57)
[2023-10-24] MEDS: Spironolactone 25 MG TABLET PO (08:54)
[2023-10-24] MEDS: Multivitamin TABLET 1 TAB PO (08:54)
[2023-10-24] MEDS: Midodrine HCl 5 MG TABLET PO ×3 (08:54→20:22)
[2023-10-24] MEDS: Sodium Zirconium Cyclosilicate 10 GM POWD.PACK PO (08:56)
[2023-10-24] MEDS: 0.9 % Sodium Chloride Flush 3 ML SYRINGE IVFLUSH ×2 (08:56→15:06)
--- NOTE | 2023-10-24 09:24 | MHC.CM.PN ---
CM MET WITH PT AT BEDSIDE. PT LIVES WITH SISTER AND SHE TRANSPORTS TO ALL MEDICAL APPOINTMENTS. PT IS INDEPENDENT WITH MOBILITY. PT UNSURE IF HE HAS A VISITING NURSE, SISTER CONFIRMS HE DOES NOT. + HCP ON FILE. PCP DR. YANES DP: HOME, NO SERVICES ANTICIPATED. SISTER WILL TRANSPORT HOME. CM WILL CONTINUE TO FOLLOW FOR ANY CHANGE TO DC PLAN/NEEDS.
[2023-10-24 13:12] LABS: Ammonia 133 umol/L (13-55)
[2023-10-24] MEDS: Lactulose 20 GM/30 ML SOLUTION 30 GM PO ×3 (14:42→20:22)
[2023-10-24 14:54] VITALS: BP 104/57; PULSE 66; RESP 18; TEMP 37.1; O2SAT 97
[2023-10-24] MEDS: Lidocaine 4 % Patch ADH..PATCH 1 PATCH TRANSDERMA (16:36)
[2023-10-24] MEDS: Acetaminophen 325 MG TABLET 650 MG PO (16:37)
[2023-10-24] MEDS: traZODone HCL 50 MG TABLET PO (20:22)
[2023-10-24 23:23] VITALS: BP 97/55; PULSE 81; RESP 18; TEMP 36; O2SAT 97
[2023-10-25] MEDS: 0.9 % Sodium Chloride Flush 3 ML SYRINGE IVFLUSH (05:45)
[2023-10-25] MEDS: Omeprazole 40 MG CAPSULE.DR PO (05:46)
[2023-10-25 07:39] VITALS: BP 98/55; PULSE 69; RESP 14; TEMP 36.4; O2SAT 99
[2023-10-25 07:44] LABS: Ammonia 98 umol/L (13-55)
[2023-10-25 07:50] LABS: Anion Gap 8 (12-20); Blood Urea Nitrogen 15 mg/dL (9-16); Calcium 8.5 mg/dL (8.4-10.2); Carbon Dioxide 20 mmol/L (22-29); Chloride 111 mmol/L (96-108); Creatinine Clr Calc Pharmacy 64.2; Estimated Glomerular Filt Rate 52; Glucose Random 97 mg/dL (60-115); Potassium 4.9 mmol/L (3.3-5.1); Sodium 134 mmol/L (135-145)
[2023-10-25] MEDS: Lactulose 20 GM/30 ML SOLUTION 30 GM PO ×2 (08:54→12:13)
[2023-10-25] MEDS: rifAXIMin 550 MG TABLET PO (08:55)
[2023-10-25] MEDS: Furosemide 20 MG TABLET PO (08:55)
[2023-10-25] MEDS: Spironolactone 25 MG TABLET PO (08:55)
[2023-10-25] MEDS: Midodrine HCl 5 MG TABLET PO (08:55)
[2023-10-25] MEDS: Multivitamin TABLET 1 TAB PO (08:55)
--- NOTE | 2023-10-25 09:17 | P.PNIM_ITS ---
Subjective Subjective Date of Service: 10/25/23 Physical Exam 2 Vital Signs: Vital Signs: Last Vital Signs Temp 97.6 F 10/25/23 07:39 Pulse 69 10/25/23 07:39 Resp 14 10/25/23 07:39 BP 98/55 L 10/25/23 07:39 Pulse Ox 99 10/25/23 07:39 O2 Del Method Room Air 10/25/23 07:39 BMI result Body Mass Index 24.2 Objective Data Active Medications Acetaminophen (Acetaminophen 325 Mg Tablet) 650 mg PO Q6H PRN PRN Reason: Pain, Mild (Pain Scale 1-3), fever or headache Last Admin: 10/24/23 16:37 Dose: 650 mg Documented By: COTEMA Benzonatate (Benzonatate 100 Mg Capsule) 200 mg PO TID PRN PRN Reason: Cough Calcium Carbonate (Calcium Carbonate 750 Mg Tab.Chew) 750 mg PO Q4H PRN PRN Reason: Heartburn Furosemide (Furosemide 20 Mg Tablet) 20 mg PO DAILY [facility]; Protocol Last Admin: 10/25/23 08:55 Dose: 20 mg Documented By: JEFFERSON Guaifenesin (Guaifenesin 200 Mg/10 Ml 10 Ml Liquid) 10 ml PO Q4H PRN PRN Reason: Cough Lactulose (Lactulose 20 Gm/30 Ml Solution) 30 gm PO QID [facility] Last Admin: 10/25/23 08:54 Dose: 30 gm Documented By: JEFFERSON Lidocaine (Lidocaine 4 % Patch Adh..Patch) 1 patch TRANSDERMA DAILY PRN PRN Reason: Pain Last Admin: 10/24/23 16:36 Dose: 1 patch Documented By: KEVIN Magnesium Hydroxide (Milk Of Magnesia 30 Ml Oral.Susp) 30 ml PO DAILY PRN PRN Reason: Constipation Melatonin (Melatonin 3 Mg Tablet) 6 mg PO BEDTIME PRN PRN Reason: Insomnia Midodrine (Midodrine Hcl 5 Mg Tablet) 5 mg PO TID [facility] Last Admin: 10/25/23 08:55 Dose: 5 mg Documented By: JEFFERSON Multivitamins/Vitamin C (Multivitamin Tablet) 1 tab PO DAILY [facility] Last Admin: 10/25/23 08:55 Dose: 1 tab Documented By: JEFFERSON Omeprazole (Omeprazole 40 Mg Capsule.) 40 mg PO DAILY@0630 [facility] Last Admin: 10/25/23 05:46 Dose: 40 mg Documented By: SHAMA Polyethylene Glycol (Polyethylene Glycol 3350 17 Gm Powd.Pack) 17 gm PO DAILY PRN PRN Reason: Constipation Rifaximin (Rifaximin 550 Mg Tablet) 550 mg PO BID [facility] Last Admin: 10/25/23 08:55 Dose: 550 mg Documented By: JEFFERSON Sodium Chloride (0.9 % Sodium Chloride Flush 3 Ml Syringe) 3 ml IVFLUSH QSHIFT [facility] Last Admin: 10/25/23 07:17 Dose: Not Given Documented By: JEFFERSON Non-Admin Reason: Previously Administered Spironolactone (Spironolactone 25 Mg Tablet) 25 mg PO DAILY [facility]; Protocol Last Admin: 10/25/23 08:55 Dose: 25 mg Documented By: JEFFERSON Trazodone HCl (Trazodone Hcl 50 Mg Tablet) 50 mg PO BEDTIME [facility] Last Admin: 10/24/23 20:22 Dose: 50 mg Documented By: TUMASY Labs 10/23/23 11:05 10/25/23 07:25 Labs: Laboratory Results - last 24 hr 10/24/23 10/25/23 12:51 07:25 Anion Gap 8 L Estim Creat Clear Calc 64.2 Estimated GFR 52 Random Glucose 97 Calcium 8.5 Ammonia 133 H 98 H Quality Stroke Does the patient have a stroke diagnosis?: No VTE Prior VTE?: No VTE Risk Level:: Medical - low VTE Device Contraindication: N/A - Device Ordered VTE Drug Contraindication: Treatment Not Tolerated
--- NOTE | 2023-10-25 09:43 | PC.NURSE ---
informed md of pt's low bp. per md administer all AM meds
--- NOTE | 2023-10-25 09:47 | P.DS_ITS ---
DS: Providers Provider Date of Service: 10/25/23 Date of admission: 10/23/23 17:07 Primary care physician: Arin Nelson MD DS: Diagnosis Discharge Diagnosis (1) Acute hepatic encephalopathy: Status: Acute (2) Altered mental status: Status: Acute DS: Summary Hospital Course Hospital Course: admission hpi Chief Complaint: Dizziness, confusion A 58-year-old male with a history of alcohol dependence (last drank May 30, 2023), pancytopenia, CKD, GERD, and alcoholic cirrhosis with hepatic encephalopathy was brought to the ED due to altered mental status, as reported by his sister, who oversees his medications. According to his sister, there was an emergency yesterday preventing her from administering his medications, including lactulose, which he takes four times a day. She believes he missed his doses. Upon evaluation in the ED, he was found to have an elevated ammonia level of 94, pancytopenia, mild hyperkalemia (k 5.3), and mild acute kidney injury (MAKENNA) on CKD. He has since received lactulose, and at the time of evaluation, he was alert and oriented to self, place, and date, which his sister noted as an improvement. She also mentioned that he had tremors in his hand (likely asterixis) previously, which have now resolved. The patient denies recent illness, fever, chills, or abdominal pain. Hospital course: The patient presented with altered mental status and was admitted due to hepatic encephalopathy caused by missing doses of lactulose. He was restarted on lactulose with an additional dose given. Despite this, his ammonia levels increased from 97 to 133, necessitating an increase in the dose of lactulose from 20 grams to 30 grams 4 times a day. He is now lucid. He will be discharged with an increased dose of lactulose, 30 grams rather than 20 grams, and adherence to the medication regimen will be reinforced. Hyperkalemia: The patient has mild hyperkalemia, which can worsen with Aldactone. He was treated with Kayexalate in the ED (one dose) and Lokelma the next day (one dose). His potassium level is now normal. I am reducing Aldactone to 25 mg daily from 50 mg daily and advising him to avoid a high-potassium diet. K is now 4.9 MAKENNA on CKD 2, mild, monitor, I don't believe a case of hepato-renal syndrome, Creatine is better and within his baseline Chronic metabolic acidosis--from CKD, liver diseaes, bicab stable 19 to 21, monitor Chronic Pancytopenia (with stable chronic anemia)--Stable, no bleeding, no indication for transfusion Coagulopathy d/t chronic liver disease, INR 1.4 monitor Hypoalbuminemia d/t liver diseae--balanced diet Chronic hypotension--due to liver disease, BP is ok, continue midodrine Cirrhosis of liver due to alcohol, he hasn't drank since May 30, 2023 (congratulated!). Continue Lasix, Aldactone, Midodrine. He has an appointment next tuesday (October 27) at [facility] to evaluated for liver transplant Time Attestation Discharge Coordination Time (in mins): 40 Quality: Safe Use of Opioids Does Pt have an Active Cancer Diagnosis on the Problem List?: No Quality: Stroke Does the patient have a stroke diagnosis?: No Physical Exam Vital Signs: Vital Signs: Last Vital Signs Temp 97.6 F 10/25/23 07:39 Pulse 69 10/25/23 07:39 Resp 14 10/25/23 07:39 BP 98/55 L 10/25/23 07:39 Pulse Ox 99 10/25/23 07:39 O2 Del Method Room Air 10/25/23 07:39 BMI result Body Mass Index 24.2 DS: Data Data Completed and Pending Labs on day of discharge: Laboratory Results - last 24 hr 10/24/23 10/25/23 12:51 07:25 Sodium 134 L Potassium 4.9 Chloride 111 H Carbon Dioxide 20 L Anion Gap 8 L BUN 15 Creatinine 1.41 H Estim Creat Clear Calc 64.2 Estimated GFR 52 Random Glucose 97 Calcium 8.5 Ammonia 133 H 98 H Discharge Plan Discharge Anticipated Discharge Date/Time: 10/25/23 09:48 Patient Disposition: Home, Self-Care Discharge Diagnosis: Acute hepatic encephalopathy Referrals: Arin Nelson MD [Primary Care Provider] - 1 Week Discharge Medications: New spironolactone 25 mg Tablet 25 mg PO DAILY Qty: 180 0RF Protocol: Hold for SBP< HOLD for SBP < : 90 Continued rifaximin 550 mg tablet 550 mg PO BID 90 Days Qty: 180 1RF midodrine 5 mg tablet 5 mg PO TID Qty: 30 0RF furosemide 20 mg tablet 20 mg PO DAILY Qty: 90 0RF (DME) Ultra-Light Rollator [facility] See Rx Instructions .Route Qty: 1 0RF Rx Instructions: As directed lidocaine 5 % adhesive patch,medicated 1 patch topical DAILY PRN (Reason: Pain) (DME) walker [facility] See Rx Instructions .Route Qty: 1 0RF Rx Instructions: As directed melatonin 5 mg Tablet 10 mg PO BEDTIME PRN (Reason: Insomnia) omeprazole 40 mg capsule,delayed release(DR/EC) 40 mg PO DAILY@0630 acetaminophen [Tylenol Extra Strength] 500 mg tablet 1,000 mg PO BID MDD 2000 PRN (Reason: pain) Rx Instructions: Pls do not take more than 4 tablets in 24h. trazodone 50 mg tablet 50 mg PO BEDTIME benzonatate 100 mg capsule 200 mg PO TID PRN (Reason: Cough) vitamin A 3,000 mcg (10,000 unit) capsule 1 cap PO DAILY polyethylene glycol 3350 17 gram/dose powder 17 g PO DAILY PRN (Reason: Constipation) Rx Instructions: if lactulose is not working multivitamin with folic acid [Daily-Sherry (with folic acid)] 400 mcg tablet 1 tab PO DAILY guaifenesin 200 mg/5 mL liquid 200 mg PO Q4H PRN (Reason: Cough) Changed lactulose 10 gram/15 mL solution 45 ml PO QID Qty: 946 0RF Rx Instructions: Sister gives @0700, 1000, 1300, 1600 Discontinued spironolactone 50 mg tablet 50 mg PO DAILY Qty: 90 0RF Rx Instructions: take once daily in the morning. Discharge Orders: Discharge Order (Routine); Ordered 10/25/23 Ordered By: Filippo Short Diet: Advance to usual diet Activity on Discharge: As tolerated Stand Alone Forms: Patient Portal Discharge page Print Language: [place] Care Plan Goals: prevention of hepatic encephalopthy and confusion, Health Concerns: cirrhosis of liver, hepatic encephlopathy Chronic kidney failure Plan of Treatment: take lactulose as recommended, hold if having diarrhea follow up with [facility] liver clinic as scheduled on TuesdayOctober 27 Avoid alcohol Assessment: see above
[2023-10-25 13:29] LABS: Ammonia 84 umol/L (13-55)
--- NOTE | 2023-10-25 13:52 | MHC.CM.PN ---
DP: PT HAS BEEN MEDICALLY CLEARED FOR DC HOME, NO SERVICES. SISTER WILL TRANSPORT
== END 2023-10-25 14:17 | disposition home or self-care (01) | DRG 280 ==
LOC: HO.ED 16:09 → HO.EDOVER 17:13 → HO.S3 17:26
PROVIDERS: Admitting Provider Internal Medicine; Emergency Provider Emergency Medicine; PCP Internal Medicine; Visit Provider Internal Medicine
DX: K70.30 Alcoholic cirrhosis of liver without ascites (principal); D61.818 Other pancytopenia; I95.89 Other hypotension; N17.9 Acute kidney failure, unspecified; D68.4 Acquired coagulation factor deficiency; E87.22 Chronic metabolic acidosis; E88.09 Other disorders of plasma-protein metabolism, not elsewhere classified; D63.1 Anemia in chronic kidney disease; E87.5 Hyperkalemia; F10.21 Alcohol dependence, in remission; N18.2 Chronic kidney disease, stage 2 (mild); K76.82 Hepatic encephalopathy; T47.3X6A Underdosing of saline and osmotic laxatives, initial encounter; Z91.A3 Caregiver's unintentional underdosing of patient's medication regimen; Z87.891 Personal history of nicotine dependence; Z79.899 Other long term (current) drug therapy
CPT/HCPCS: 36415; 71045; 80048; 80053; 80307; 81001; 82140; 84484; 85025; 85610; 93005; 99221; 99285

== ENCOUNTER → 2023-10-23 14:28 | Outpatient (BNV) | payer BC, OTHER, SELFPAY | PROVIDERS: Admitting Provider Internal Medicine; Emergency Provider Emergency Medicine; PCP Internal Medicine; Visit Provider Internal Medicine Cardiovascular Disease | DX: I45.10 Unspecified right bundle-branch block (principal); E87.5 Hyperkalemia; R94.31 Abnormal electrocardiogram [ECG] [EKG] | CPT/HCPCS: 93010 ==

== ENCOUNTER → 2023-10-23 17:07 | Outpatient (BNV) | payer BC, OTHER, SELFPAY | PROVIDERS: Admitting Provider Internal Medicine; Emergency Provider Emergency Medicine; PCP Internal Medicine; Visit Provider Internal Medicine | DX: K76.82 Hepatic encephalopathy (principal); R41.82 Altered mental status, unspecified | CPT/HCPCS: 99223; 99232; 99239 ==

== ENCOUNTER 2023-12-05 09:00 | Outpatient (REF) | payer BC, OTHER, SELFPAY ==
[2023-12-05 10:07] LABS: Blood Urea Nitrogen 14 mg/dL (9-16); Estimated Glomerular Filt Rate 58
== END 2023-12-05 09:01 | disposition home or self-care (01) ==
LOC: HO.LAB 09:00
PROVIDERS: PCP Internal Medicine; Visit Provider Radiology Vascular & Interventional Radiology
DX: R79.9 Abnormal finding of blood chemistry, unspecified (principal); R94.4 Abnormal results of kidney function studies
CPT/HCPCS: 36415; 82565; 84520

== ENCOUNTER 2024-01-08 11:17 | Inpatient (IN) | payer MEDICAID, SELFPAY ==
--- NOTE | ~2024-01-08 | XR_ITS ---
EXAMINATION: XR CHEST CLINICAL INFORMATION: Mental status change. Evaluate for pneumonia. COMPARISON: Chest radiograph dated 10/23/2023. TECHNIQUE: Frontal view of the chest was obtained. FINDINGS: The lungs are clear. The cardiomediastinal silhouette is normal in size. There is no pleural effusion or pneumothorax. No acute osseous abnormality. XR/XR chest 1V IMPRESSION: No acute cardiopulmonary findings. Electronically signed by: Yong Khanna MD 01/08/2024 01:57 PM EDT
[2024-01-08 11:31] VITALS: BP 108/71; PULSE 63; RESP 16; TEMP 36; O2SAT 99; BMI 24.4
--- NOTE | 2024-01-08 11:41 | ED.GENADULT ---
HPI - General Adult General Chief complaint: Altered Mental Status Stated complaint: Ammonia levels high Time Seen by Provider: 01/08/24 12:03 Source: patient and family ( sister) Mode of arrival: ambulatory Limitations: no limitations History of Present Illness ED Provider: DR. Cyr HPI narrative: 58-year-old male history of alcohol dependence no drinking since 06/07/2023, pancytopenia, CKD, GERD, alcoholic cirrhosis with hepatic encephalopathy came in with his sister who is his healthcare proxy stated that the patient for the last few days has been disoriented and change his mental status, patient is supposed to have lactulose every 3 hours at home seem he is not compliant with drinking his lactulose. Patient in the emergency department is lethargic slightly disoriented but arousable and able to give history patient declined chest pain or abdominal pain. ongoing process trying to place him on liver transplant last. Related Data Home Medications ?Medication ?Instructions ?Recorded ?Confirmed melatonin 5 mg tablet 10 mg PO BEDTIME PRN Insomnia 07/18/23 01/08/24 lidocaine 5 % topical patch 1 patch topical DAILY PRN Pain 08/18/23 01/08/24 omeprazole 40 mg capsule,delayed 40 mg PO DAILY@0630 09/03/23 01/08/24 release trazodone 50 mg tablet 25 mg PO BEDTIME PRN Insomnia 09/03/23 01/08/24 vitamin A 3,000 mcg (10,000 unit) 1 cap PO DAILY 10/23/23 01/08/24 capsule aspirin 81 mg tablet,delayed 81 mg PO DAILY 01/08/24 01/08/24 release clopidogrel 75 mg tablet 75 mg PO DAILY 01/08/24 01/08/24 multivitamin 1 tab PO DAILY 01/08/24 01/08/24 Previous Rx's ?Medication ?Instructions ?Recorded walker #1 ea 09/21/22 walker (Ultra-Light Rollator misc) #1 ea 06/07/23 furosemide 20 mg tablet 20 mg PO DAILY #90 tabs 10/07/23 midodrine 5 mg tablet 5 mg PO TID #30 tabs 10/07/23 lactulose 10 gram/15 mL oral 45 ml PO QID #946 mL 10/25/23 solution spironolactone 25 mg tablet 25 mg PO DAILY #180 tabs 10/25/23 rifaximin 550 mg tablet (Xifaxan) 550 mg PO BID #180 tabs 12/21/23 Allergies Allergy/AdvReac Type Severity Reaction Status Date / Time No Known Allergies Allergy Verified 01/08/24 11:33 Review of Systems Review of Systems: All other systems are reviewed and are negative Constitutional: Reports as per HPI and Reports no additional constitutional complaints Eyes: Reports as per HPI and Reports no additional eye complaints Reports system reviewed and no additional complaints, except as documented Cardiovascular: Reports as per HPI and Reports no additional cardiovascular complaints Respiratory: Reports as per HPI and Reports no additional respiratory complaints Gastrointestinal: Reports as per HPI and Reports no additional gastrointestinal complaints Genitourinary: Reports no additional female genitourinary complaints Musculoskeletal: Reports no additional musculoskeletal complaints Skin/Breast: Reports system reviewed and no additional complaints, except as docu Psychiatric: Reports no additional psychiatric complaints Endocrine: Reports no additional endocrine complaints Hematologic/Lymphatic: Reports no additional hematologic/lymphatic complaints Allergic/Immunologic: Reports no additional allergic/immunologic complaints Reports system reviewed and no additional complaints, except as documented and Reports Abnormal speech present [facility] Past Medical History Medical History Cirrhosis Portosystemic shunt, spontaneous Anemia Abdominal wall swelling Hyperammonemia Hepatic steatosis Diarrhea resulting from infection of the bowel mucosa Liver lesion Substance use Alcohol use disorder Anemia Chronic kidney disease Alcohol dependence Surgical History Hx of colonoscopy Hx of esophagogastroduodenoscopy History of urologic surgery H/O varicose vein stripping S/P bariatric surgery Social History Social History Household Members: Family Household Members Other:: sister Housing: Apartment Do you presently have visiting nurse or other home services: No Alcohol intake: former Patient Tobacco Use Status: Former Tobacco user Tobacco use type: Cigarette e-Cigarette/Vaping Use: Never Used Second Hand Smoke Exposure: No Substance Use Type: Crack/Cocaine and Marijuana Advance Directives Date on File: 06/08/23 service: No Current occupational status: employed Physical Exam ED Vital Signs: Vital Signs - 24 hr 01/08/24 11:31 Temperature 96.8 F Pulse Rate 63 Respiratory Rate 16 Blood Pressure 108/71 Pulse Oximetry 99 Oxygen Delivery Method Room Air BMI result Body Mass Index 24.4 Vital signs have been reviewed and appear to be correct. Blood pressure elevated. Heart rate normal. Respiratory rate normal. Temperature normal. Oxygen saturation normal. Appearance: Alert. Oriented X3. No acute distress. Head: Normal external exam. Normocephalic. Atraumatic. No Farah signs noted. No raccoon eyes noted Eyes: PERRLA. EOMI. Conjunctiva and sclera normal. Eyelids normal. ENT: TM's Normal. Pharynx normal. Uvula midline. Moist mucous membranes. No trismus noted. No drooling noted. No muffled voice noted. Neck: Normal inspection. Neck supple. FROM. No adenopathy. Thyroid Normal. No meningeal signs. No neck mass noted. CVS: Normal heart rate and rhythm. Heart sound normal. No murmurs noted. Pulses normal throughout. Respiratory: No respiratory distress. Painless inspiration. Breath sounds normal. No wheezes/rales/rhonchi noted. Chest nontender. No accessory muscle usage noted or decreased air movement noted. Abdomen: Soft and nontender. Bowel sounds normal in all 4 quadrants. No distention noted. No organomegaly noted. No visible injury noted. Back: No CVA tenderness. Full range of motion noted. Skin: Skin warm and dry. Normal skin color. Normal skin turgor. No rashes/lesions/lacerations noted. Extremities: No lower extremity edema. Extremities exhibit normal range of motion. Extremities nontender. Neuro: Oriented X 3. Cranial nerve exam: II-XII are grossly intact No motor deficit. No sensory deficit. Reflexes normal. Course Course Course Narrative: RME: Done by JIGAR Schmidt. Patient presented to the ED for altered mental status with pmh of liver cirrhosis and eleveated Ammonia level. patient is altered. did not take his lactulose. patient brought to ED for evalaution immeidately. labs ordered. Patient is altered and skin yellow Reevaluation(s) Reevaluation #1: 58-year-old male with alcoholic liver cirrhosis and frequent hepatic encephalopathy came in with change mental status, ammonia level is 200 history is consistent of noncompliance taking lactulose at home. No fever, no abdominal pain. Will admit for further lactulose administration. Time: 14:00 Medications Administered Generic Name Dose Route Start Last Admin Trade Name Freq PRN Reason Stop Dose Admin Lactulose 30 gm 09/22/24 17:00 01/08/24 16:38 Lactulose 20 Gm/30 Ml Solution PO 30 gm QID VALERIE Administration Midodrine 5 mg 01/08/24 15:00 01/08/24 15:26 Midodrine Hcl 5 Mg Tablet PO 5 mg TID VALERIE Administration Sodium Chloride 3 ml 01/08/24 16:00 01/08/24 15:22 0.9 % Sodium Chloride Flush 3 Ml Syringe IVFLUSH 3 ml QSHIFT VALERIE Administration Discontinued Medications Generic Name Dose Route Start Last Admin Trade Name Holly PRN Reason Stop Dose Admin Lactulose 60 gm 01/08/24 12:18 01/08/24 12:36 Lactulose 20 Gm/30 Ml Solution PO 01/08/24 12:19 60 gm ONCE ONE Administration Medical Decision Making Differential Diagnosis Differential Diagnoses: The differential diagnosis associated with the presentation includes ( Hepatic encephalopathy, electrolyte derangement, severe anemia, SBP, hyperammonemia.) Admission/Observation Consideration of admission/observation: Escalation of care including admission/observation considered Lab Data MDM Lab Attestation statement: I reviewed the patient's lab results. 01/08/24 11:51 01/08/24 11:51 Labs: Lab Results 01/08/24 Range/Units 11:51 WBC 5.2 (4.8-10.8) X10*3/uL RBC 3.88 L (4.60-5.80) X10*6/uL Hgb 9.7 L (14.0-18.0) g/dl Hct 28.7 L (42.0-52.0) % MCV 74.0 L (80.0-98.0) fL MCH 25.0 L (27.0-33.0) pg MCHC 33.8 (31.0-36.0) g/dl RDW 20.3 H (11.0-16.0) % Plt Count 143 L (160-400) X10*3/uL MPV Not Reportable Immature Gran % (Auto) 0.2 (0.0-0.4) % Neut % (Auto) 67.9 (45-73) % Lymph % (Auto) 20.2 (20-40) % [place] % (Auto) 7.8 (2-11) % Eos % (Auto) 3.3 (0-4) % Baso % (Auto) 0.6 (0-2) % Lymph # (Auto) 1.0 L (1.2-4.9) X10*3/uL [place] # (Auto) 0.4 (0.1-1.2) X10*3/uL Eos # (Auto) 0.2 (0.0-0.4) X10*3/uL Baso # (Auto) 0.0 (0.0-0.2) X10*3/uL Abs Immat Gran (auto) 0.01 (0.00-0.03) X10*3/uL Absolute Neuts (auto) 3.5 (2.0-8.3) x10*3/uL Absolute Nucleated RBC 0.000 (0.0-0.012) X10*3/uL Nucleated RBC % (auto) 0.0 (0.0-0.2) /100WBC PT 13.7 H (10.9-12.4) SEC INR 1.2 H (0.9-1.1) APTT 34.5 D (26.0-36.8) SEC Sodium 143 (135-145) mmol/L Potassium 4.7 (3.3-5.1) mmol/L Chloride 117 H (96-108) mmol/L Carbon Dioxide 17 L (22-29) mmol/L Anion Gap 14 (12-20) BUN 19 H (9-16) mg/dL Creatinine 1.29 (0.5-1.4) mg/dL Estim Creat Clear Calc 70.1 Estimated GFR 58 Random Glucose 123 H (60-115) mg/dL Calcium 8.7 D (8.4-10.2) mg/dL Total Bilirubin 1.3 H (0.0-1.0) mg/dL AST 72 H (5-37) U/L ALT 37 (0-40) U/L Alkaline Phosphatase 164 H (39-117) U/L Ammonia 200 H (13-55) umol/L Total Protein 7.7 (6.5-8.0) g/dL Albumin 3.3 L (3.5-5.0) g/dL Lipase 27 (8-78) U/L Influenza Type A (PCR) NEGATIVE (Negative) Influenza Type B (PCR) NEGATIVE (Negative) RSV RNA Qual (PCR) NEGATIVE (Negative) SARS-CoV-2 RNA (RT-PCR) NEGATIVE (Negative) Chronic Conditions Patient?s care impacted by: Other ( liver cirrhosis and hepatic encephalopathy.) Discharge Plan Discharge Clinical Impression: Acute hepatic encephalopathy, Hyperammonemia Patient Disposition: Admitted As Inpatient Interventions: Admission Worksheet (ED) Last Done: 01/08/24 14:32 Discharge Date/Time: 01/08/24 15:59
[2024-01-08 11:56] LABS: MANUAL DIFF FLAG NO
[2024-01-08 11:57] LABS: Imm Gran Abs Auto 0.01 X10*3/uL (0.00-0.03); Imm Gran Pct Auto 0.2 % (0.0-0.4); Red Blood Count 3.88 X10*6/uL (4.60-5.80); SCAN SMEAR FLAG 1
[2024-01-08 11:59] LABS: Basophils Percent Auto 0.6 % (0-2); Eosinophils Absolute Auto 0.2 X10*3/uL (0.0-0.4); Eosinophils Percent Auto 3.3 % (0-4); Hematocrit 28.7 % (42.0-52.0); Hemoglobin 9.7 g/dl (14.0-18.0); Lymphocytes Percent Auto 20.2 % (20-40); Mean Corpuscular HGB Conc 33.8 g/dl (31.0-36.0); Monocytes Absolute Auto 0.4 X10*3/uL (0.1-1.2); Monocytes Percent Auto 7.8 % (2-11); Neutrophils Absolute Auto 3.5 x10*3/uL (2.0-8.3); Neutrophils Percent Auto 67.9 % (45-73); Platelet Count 143 X10*3/uL (160-400); Red Cell Distribution Width 20.3 % (11.0-16.0); White Blood Count 5.2 X10*3/uL (4.8-10.8)
[2024-01-08 12:03] LABS: Ammonia 200 umol/L (13-55)
[2024-01-08 12:04] LABS: PLT ABN DIST 1
[2024-01-08 12:09] LABS: INTERNATIONAL NORM RATIO 1.2 (0.9-1.1); Prothrombin Time 13.7 SEC (10.9-12.4)
[2024-01-08 12:11] LABS: Alanine Aminotransferase 37 U/L (0-40); Albumin Level 3.3 g/dL (3.5-5.0); Alkaline Phosphatase 164 U/L (39-117); Anion Gap 14 (12-20); Aspartate Amino Transferase 72 U/L (5-37); Bilirubin Total 1.3 mg/dL (0.0-1.0); Blood Urea Nitrogen 19 mg/dL (9-16); Calcium 8.7 mg/dL (8.4-10.2); Carbon Dioxide 17 mmol/L (22-29); Chloride 117 mmol/L (96-108); Creatinine Clr Calc Pharmacy 70.1; Estimated Glomerular Filt Rate 58; Glucose Random 123 mg/dL (60-115); Lipase 27 U/L (8-78); Partial Thromboplastin Time 34.5 SEC (26.0-36.8); Potassium 4.7 mmol/L (3.3-5.1); Sodium 143 mmol/L (135-145); Total Protein 7.7 g/dL (6.5-8.0)
[2024-01-08] MEDS: Lactulose 20 GM/30 ML SOLUTION 60 GM PO (12:36)
[2024-01-08 12:41] LABS: Influenza A PCR NEGATIVE (Negative); Influenza B PCR NEGATIVE (Negative); Resp Syncy Virus RNA Qual PCR NEGATIVE (Negative); SARS COV2 PCR INHOUSE NEGATIVE (Negative)
--- NOTE | 2024-01-08 13:37 | P.HPHOSP_ITS ---
History of Present Illness Date of Service: 01/08/24 Attending physician on admission: Danielle Milner Chief Complaint: confusion This is a 58-year-old male with history of polysubstance abuse now sober, gastric bypass, liver cirrhosis and multiple admissions for hepatic encephalopathy who was brought to the emergency department by his sister for confusion which began yesterday. Patient is awake and alert but vague and unable to provide any significant details regarding if he has been taking his lactulose or if he has missed any doses. In the emergency department he was noted to be confused and his ammonia level was elevated at 200. Was given a dose oral lactulose which he was able to drink in its entirety. The appears his mental status may have started to improve already. The remainder of his lab work appears to be at his baseline. He will be admitted for further management of hepatic encephalopathy. Review of Systems 2 Review of Systems: confused but denies any specific complaints including abdominal pain, nausea, vomiting, fever Yes all other systems are reviewed and are negative Neurologic: Reports confusion Psychiatric: Psychiatric: Reports confusion [facility] Medical History Cirrhosis Portosystemic shunt, spontaneous Anemia Abdominal wall swelling Hyperammonemia Hepatic steatosis Diarrhea resulting from infection of the bowel mucosa Liver lesion Substance use Alcohol use disorder Anemia Chronic kidney disease Alcohol dependence Surgical History Hx of colonoscopy Hx of esophagogastroduodenoscopy History of urologic surgery H/O varicose vein stripping S/P bariatric surgery Social History Household Members: Family Household Members Other:: sister Housing: Apartment Do you presently have visiting nurse or other home services: No Alcohol intake: former Patient Tobacco Use Status: Former Tobacco user Tobacco use type: Cigarette Smoked in Last 30 Days: No e-Cigarette/Vaping Use: Never Used Second Hand Smoke Exposure: No Use of substances other than those prescribed or required for medical reasons: No Substance Use Type: Crack/Cocaine and Marijuana Advance Directives: Yes Advance Directives on File: Yes Advance Directives Date on File: 06/08/23 Nutrition Risks: On aspiration precautions service: No Current occupational status: employed Meds Allergies Allergy/AdvReac Type Severity Reaction Status Date / Time No Known Allergies Allergy Verified 01/08/24 11:33 Active Medications: Current Medications Acetaminophen (Acetaminophen 325 Mg Tablet) 650 mg PO Q6H PRN PRN Reason: Pain, Mild (Pain Scale 1-3), fever or headache Sodium Chloride (0.9 % Sodium Chloride Flush 3 Ml Syringe) 3 [facility] Home Medications ?Medication ?Instructions ?Recorded ?Confirmed ?Last Taken ?Type melatonin 5 mg tablet 10 mg PO BEDTIME PRN Insomnia 07/18/23 01/08/24 09/02/23 History lidocaine 5 % topical patch 1 patch topical DAILY PRN Pain 08/18/23 01/08/24 09/02/23 History omeprazole 40 mg capsule,delayed 40 mg PO DAILY@0630 09/03/23 01/08/24 10/23/23 History release trazodone 50 mg tablet 20 mg PO BEDTIME 09/03/23 01/08/24 09/02/23 History multivitamin with folic acid 400 1 tab PO DAILY 09/21/23 01/08/24 10/23/23 History mcg tablet (Daily-Sherry (with folic acid)) vitamin A 3,000 mcg (10,000 unit) 1 cap PO DAILY 10/23/23 01/08/24 10/23/23 History capsule aspirin 81 mg tablet 81 mg PO DAILY 01/08/24 01/08/24 Unknown History clopidogrel 75 mg tablet 75 mg PO DAILY 01/08/24 01/08/24 Unknown History Physical Exam 2 Vital Signs and Narrative: Vital Signs: Last Vital Signs Temp 96.8 F 01/08/24 11:31 Pulse 63 01/08/24 11:31 Resp 16 01/08/24 11:31 BP 108/71 01/08/24 11:31 Pulse Ox 99 01/08/24 11:31 O2 Del Method Room Air 01/08/24 11:31 BMI result Body Mass Index 24.4 Const: General: comfortable, no acute distress, alert, awake and confusion Nutritional Appearance: average body habitus Orientation/consciousness: c onfusion Resp: Effort & Inspection: normal respiratory effort, able to speak in complete sentences, no respiratory distress and no use of accessory muscles Cardio: Rate: regular rate GI: Inspection: No distended Palpation (GI): Soft to palpation and nontender Neuro: Other: + asterixis General: moves all extremities and confusion Extrem: Other: RLE swelling (Chronic) Results Labs 01/08/24 11:51 01/08/24 11:51 Labs: Laboratory Results - last 24 hr 01/08/24 11:51 MCV 74.0 L MCH 25.0 L MCHC 33.8 RDW 20.3 H Plt Count 143 L MPV Not Reportable Immature Gran % (Auto) 0.2 Neut % (Auto) 67.9 Lymph % (Auto) 20.2 [place] % (Auto) 7.8 Eos % (Auto) 3.3 Baso % (Auto) 0.6 Lymph # (Auto) 1.0 L [place] # (Auto) 0.4 Eos # (Auto) 0.2 Baso # (Auto) 0.0 Abs Immat Gran (auto) 0.01 Absolute Neuts (auto) 3.5 Absolute Nucleated RBC 0.000 Nucleated RBC % (auto) 0.0 PT 13.7 H INR 1.2 H APTT 34.5 D Anion Gap 14 Estim Creat Clear Calc 70.1 Estimated GFR 58 Random Glucose 123 H Calcium 8.7 D Total Bilirubin 1.3 H AST 72 H ALT 37 Alkaline Phosphatase 164 H Ammonia 200 H Total Protein 7.7 Albumin 3.3 L Lipase 27 Influenza Type A (PCR) NEGATIVE Influenza Type B (PCR) NEGATIVE RSV RNA Qual (PCR) NEGATIVE SARS-CoV-2 RNA (RT-PCR) NEGATIVE Assessment and Plan (1) Acute hepatic encephalopathy: Status: Acute (2) Hyperammonemia: Status: Acute Plan This is a 58-year-old male with history of polysubstance abuse, alcohol abuse, morbid obesity status post Ramon-en-Y gastric bypass, liver cirrhosis here with hepatic encephalopathy Acute toxic metabolic encephalopathy due to Hepatic encephalopathy Unclear patient has been compliant with medications - likely that he missed a dose Received 60 of lactulose in the ED with some improvement Continues to have asterixis and confusion Will admit for further lactulose Continue Xifaxan Monitor mentation Chronic metabolic acidosis Due to CKD, liver disease Follow bicarb Chronic hypotension Due to liver disease Continue midodrine Liver cirrhosis with chronic anemia/thrombocytopenia Due to metabolic disease and alcohol. Has been sober Has started the process for liver transplantation s/p BRTO for splenorenal shunt Continue furosemide, Aldactone Hypoalbuminemia Due to underlying liver disease recently had right LE stent placement [facility] continue asa, plavix DVT prophylaxis-mechanical devices as patient is on dual antiplatelet therapy and has anemia/thrombocytopenia Patient will likely require 2 midnight stay in the hospital for management of hepatic encephalopathy requiring close monitoring of mental status and titration of lactulose dosing Quality Stroke Does the patient have a stroke diagnosis?: No VTE Prior VTE?: No VTE Risk Level:: Medical - moderate - high VTE Device Contraindication: N/A - Device Ordered VTE Drug Contraindication: N/A - Med Ordered
[2024-01-08 13:57] VITALS: BP 110/72; PULSE 57; RESP 16; TEMP 36.7; O2SAT 96
[2024-01-08 14:10] LABS: Appearance Urine Clear; Color Urine Yellow; Glucose Urine UA Negative (Negative); Leukocyte Esterase Urine Negative (Negative); Nitrite Urine Negative (Negative); PH 6.5 (5.0-9.0); Urine Blood Negative (Negative); Urine Ketones Negative (Negative); Urine Protein Negative (Neg-Trace)
--- NOTE | 2024-01-08 14:18 | PC.NURSE ---
pt alert, oriented to person, that he is in the hospital - unsure which hospital, year, required prompting for month. vss. took lactulose w sips of apple juice. sister ([employer]LL[employer] SUPER[employer]) at bedside, 1 assist to eat lunch and stand at bedside for urination. pt pending admission orders.
--- NOTE | 2024-01-08 15:00 | PC.NURSE ---
med rec updated w list from family.
[2024-01-08] MEDS: 0.9 % Sodium Chloride Flush 3 ML SYRINGE IVFLUSH ×2 (15:22→19:51)
[2024-01-08] MEDS: Midodrine HCl 5 MG TABLET PO ×2 (15:26→19:51)
[2024-01-08 15:49] VITALS: BMI 24.8
[2024-01-08 16:00] VITALS: BP 122/75; PULSE 61; RESP 18; TEMP 36.9; O2SAT 100
--- NOTE | 2024-01-08 16:15 | PHA.MEDREC ---
Addendum entered by Inderjit Johnson [facility] 01/08/24 16:34: MED REC CHECKED BY [facility] Original Note: Pharmacy Consult ? Medication Reconciliation Pharmacy has completed the medication reconciliation. List from [facility].
[2024-01-08] MEDS: Lactulose 20 GM/30 ML SOLUTION 30 GM PO ×2 (16:38→19:52)
[2024-01-08 19:19] VITALS: BP 130/62; PULSE 68; RESP 18; TEMP 36.1; O2SAT 97
[2024-01-08] MEDS: rifAXIMin 550 MG TABLET PO (19:52)
[2024-01-08] MEDS: traZODone HCL 50 MG TABLET 25 MG PO (19:52)
[2024-01-08 19:56] VITALS: BP 104/60
[2024-01-09 03:31] VITALS: BP 135/72; PULSE 64; RESP 18; TEMP 36.3; O2SAT 98
[2024-01-09 05:38] LABS: Ammonia 86 umol/L (13-55)
[2024-01-09] MEDS: Omeprazole 40 MG CAPSULE.DR PO (05:40)
[2024-01-09 05:45] LABS: Anion Gap 12 (12-20); Blood Urea Nitrogen 18 mg/dL (9-16); Calcium 8.6 mg/dL (8.4-10.2); Carbon Dioxide 19 mmol/L (22-29); Chloride 115 mmol/L (96-108); Creatinine Clr Calc Pharmacy 81.5; Estimated Glomerular Filt Rate > 60; Glucose Random 88 mg/dL (60-115); Potassium 4.7 mmol/L (3.3-5.1); Sodium 141 mmol/L (135-145)
[2024-01-09 07:32] VITALS: BP 121/68; PULSE 66; RESP 16; TEMP 36.7; O2SAT 98
[2024-01-09] MEDS: Clopidogrel Bisulfate 75 MG TABLET PO (09:00)
[2024-01-09] MEDS: Spironolactone 25 MG TABLET PO (09:00)
[2024-01-09] MEDS: rifAXIMin 550 MG TABLET PO ×2 (09:00→20:49)
[2024-01-09] MEDS: Multivitamin TABLET 1 TAB PO (09:00)
[2024-01-09] MEDS: Furosemide 20 MG TABLET PO (09:00)
[2024-01-09] MEDS: Midodrine HCl 5 MG TABLET PO ×3 (09:00→20:49)
[2024-01-09] MEDS: Aspirin 81 MG TAB.CHEW PO (09:01)
[2024-01-09] MEDS: Lactulose 20 GM/30 ML SOLUTION 30 GM PO ×4 (09:01→20:49)
[2024-01-09] MEDS: 0.9 % Sodium Chloride Flush 3 ML SYRINGE IVFLUSH ×2 (09:01→16:06)
[2024-01-09] MEDS: Flu Vacc TS2024-25(6mos up)/PF 0.5 ML SYRINGE IM (09:05)
--- NOTE | 2024-01-09 09:09 | HO.PM.IMPN ---
Subjective Subjective Date of Service: 01/09/24 Physical Exam Vital Signs: Vital Signs: Last Vital Signs Temp 98.1 F 01/09/24 07:32 Pulse 66 01/09/24 07:32 Resp 16 01/09/24 07:32 BP 121/68 01/09/24 07:32 Pulse Ox 98 01/09/24 07:32 O2 Del Method Room Air 01/09/24 07:32 BMI result Body Mass Index 24.8 Objective Data Active Medications Acetaminophen (Acetaminophen 325 Mg Tablet) 650 mg PO Q6H PRN PRN Reason: Pain, Mild (Pain Scale 1-3), fever or headache Aspirin (Aspirin 81 Mg Tab.Chew) 81 mg PO DAILY [facility] Last Admin: 01/09/24 09:01 Dose: 81 mg Documented By: STACI Clopidogrel Bisulfate (Clopidogrel Bisulfate 75 Mg Tablet) 75 mg PO DAILY [facility] Last Admin: 01/09/24 09:00 Dose: 75 mg Documented By: STACI Furosemide (Furosemide 20 Mg Tablet) 20 mg PO DAILY [facility]; Protocol Last Admin: 01/09/24 09:00 Dose: 20 mg Documented By: STACI Influenza Virus Vaccine (Flu Vacc [id number](6mos Up)/Pf 0.5 Ml Syringe) 0.5 ml IM .ONCE ONE Stop: 01/09/24 10:01 Last Admin: 01/09/24 09:05 Dose: 0.5 ml Documented By: STACI Lactulose (Lactulose 20 Gm/30 Ml Solution) 30 gm PO QID [facility] Last Admin: 01/09/24 09:01 Dose: 30 gm Documented By: STACI Lidocaine (Lidocaine 4 % Patch Adh..Patch) 1 patch TRANSDERMA DAILY PRN PRN Reason: Pain, Mild (Pain Scale 1-3) Melatonin (Melatonin 3 Mg Tablet) 9 mg PO BEDTIME PRN PRN Reason: Insomnia Midodrine (Midodrine Hcl 5 Mg Tablet) 5 mg PO TID [facility] Last Admin: 01/09/24 09:00 Dose: 5 mg Documented By: STACI Multivitamins/Vitamin C (Multivitamin Tablet) 1 tab PO DAILY [facility] Last Admin: 01/09/24 09:00 Dose: 1 tab Documented By: STACI Omeprazole (Omeprazole 40 Mg Capsule.Dr) 40 mg PO DAILY@0630 [facility] Last Admin: 01/09/24 05:40 Dose: 40 mg Documented By: GRACIE Rifaximin (Rifaximin 550 Mg Tablet) 550 mg PO BID [facility] Last Admin: 01/09/24 09:00 Dose: 550 mg Documented By: STACI Sodium Chloride (0.9 % Sodium Chloride Flush 3 Ml Syringe) 3 ml IVFLUSH QSHIFT [facility] Last Admin: 01/09/24 09:01 Dose: 3 ml Documented By: STACI Spironolactone (Spironolactone 25 Mg Tablet) 25 mg PO DAILY [facility]; Protocol Last Admin: 01/09/24 09:00 Dose: 25 mg Documented By: STACI Trazodone HCl (Trazodone Hcl 50 Mg Tablet) 25 mg PO BEDTIME [facility] Last Admin: 01/08/24 19:52 Dose: 25 mg Documented By: GRACIE Labs 01/08/24 11:51 01/09/24 05:20 Labs: Laboratory Results - last 24 hr 01/08/24 01/08/24 01/09/24 11:51 14:04 05:20 MCV 74.0 L MCH 25.0 L MCHC 33.8 RDW 20.3 H Plt Count 143 L MPV Not Reportable Immature Gran % (Auto) 0.2 Neut % (Auto) 67.9 Lymph % (Auto) 20.2 [place] % (Auto) 7.8 Eos % (Auto) 3.3 Baso % (Auto) 0.6 Lymph # (Auto) 1.0 L [place] # (Auto) 0.4 Eos # (Auto) 0.2 Baso # (Auto) 0.0 Abs Immat Gran (auto) 0.01 Absolute Neuts (auto) 3.5 Absolute Nucleated RBC 0.000 Nucleated RBC % (auto) 0.0 PT 13.7 H INR 1.2 H APTT 34.5 D Anion Gap 14 12 Estim Creat Clear Calc 70.1 81.5 Estimated GFR 58 > 60 Random Glucose 123 H 88 Calcium 8.7 D 8.6 Total Bilirubin 1.3 H AST 72 H ALT 37 Alkaline Phosphatase 164 H Ammonia 200 H 86 H Total Protein 7.7 Albumin 3.3 L Lipase 27 Urine Color Yellow Urine Appearance Clear Urine pH 6.5 Ur Specific [place] 1.020 Urine Protein Negative Urine Glucose (UA) Negative Urine Ketones Negative Urine Blood Negative Urine Nitrite Negative Ur Leukocyte Esterase Negative Influenza Type A (PCR) NEGATIVE Influenza Type B (PCR) NEGATIVE RSV RNA Qual (PCR) NEGATIVE SARS-CoV-2 RNA (RT-PCR) NEGATIVE Assessment and Plan (1) Hyperammonemia: Status: Acute (2) Acute hepatic encephalopathy: Status: Acute Plan This is a 58-year-old male with history of polysubstance abuse, alcohol abuse, morbid obesity status post Ramon-en-Y gastric bypass, liver cirrhosis here with hepatic encephalopathy Acute toxic metabolic encephalopathy due to Hepatic encephalopathy Unclear patient has been compliant with medications - likely that he missed a dose Received 60 of lactulose in the ED with some improvement Continues to have asterixis but confusion is resolved Continue Xifaxan and lactulose Monitor mentation Chronic metabolic acidosis Due to CKD, liver disease Follow bicarb Chronic hypotension Due to liver disease Continue midodrine Liver cirrhosis with chronic anemia/thrombocytopenia Due to metabolic disease and alcohol. Has been sober Has started the process for liver transplantation s/p BRTO for splenorenal shunt Continue furosemide, Aldactone Hypoalbuminemia Due to underlying liver disease recently had right LE stent placement at [facility] continue asa, plavix DVT prophylaxis-mechanical devices as patient is on dual antiplatelet therapy and has anemia/thrombocytopenia Attending Dr. Navarro Quality Stroke Does the patient have a stroke diagnosis?: No VTE Prior VTE?: No VTE Risk Level:: Medical - moderate - high VTE Device Contraindication: N/A - Device Ordered VTE Drug Contraindication: N/A - Med Ordered
--- NOTE | 2024-01-09 09:21 | MHC.CM.PN ---
CM MET WITH PT AT BEDSIDE. ALERT AND ABLE TO PARTICIPATE WITH ASSESSMENT. PT LIVES WITH VIKTORIA ORTEGA . INDEPENDENT AT BASELINE. +HCP ON FILE AND VERIFIED. PCP DR. YANES DP: HOME, NO SERVICES IS THE GOAL. SISTER WILL TRANSPORT. CM WILL CONTINUE TO FOLLOW FOR ANY CHANGE TO DC PLAN/NEEDS.
[2024-01-09 13:31] VITALS: PULSE 91; O2SAT 98
[2024-01-09 15:10] VITALS: BP 106/62; PULSE 70; RESP 18; TEMP 36.4; O2SAT 99
[2024-01-09 19:51] VITALS: BP 100/56; PULSE 100; RESP 20; TEMP 36.2; O2SAT 97
[2024-01-09] MEDS: traZODone HCL 50 MG TABLET 25 MG PO (20:49)
[2024-01-10] MEDS: 0.9 % Sodium Chloride Flush 3 ML SYRINGE IVFLUSH (00:31)
[2024-01-10 02:53] VITALS: BP 102/56; PULSE 72; RESP 18; TEMP 36.4; O2SAT 96
[2024-01-10] MEDS: Omeprazole 40 MG CAPSULE.DR PO (05:27)
[2024-01-10 07:43] VITALS: BP 101/57; PULSE 69; RESP 18; TEMP 37; O2SAT 97
--- NOTE | 2024-01-10 08:38 | PM.DS ---
DS: Providers Provider Date of Service: 01/10/24 Date of admission: 01/08/24 13:28 Primary care physician: Arin Nelson MD DS: Diagnosis Discharge Diagnosis (1) Hyperammonemia: Status: Acute (2) Acute hepatic encephalopathy: Status: Acute DS: Summary Hospital Course Hospital Course: History and physical as per admitting provider. This is a 58-year-old male with history of polysubstance abuse now sober, gastric bypass, liver cirrhosis and multiple admissions for hepatic encephalopathy who was brought to the emergency department by his sister for confusion which began yesterday. Patient is awake and alert but vague and unable to provide any significant details regarding if he has been taking his lactulose or if he has missed any doses. In the emergency department he was noted to be confused and his ammonia level was elevated at 200. Was given a dose oral lactulose which he was able to drink in its entirety. The appears his mental status may have started to improve already. The remainder of his lab work appears to be at his baseline. He will be admitted for further management of hepatic encephalopathy. 58-year-old man with a history of hepatic encephalopathy treated for acute toxic metabolic encephalopathy secondary to missed doses of lactulose. Unknown how many doses but patient reports maybe 2. Patient was put back on his usual doses of Xifaxan and lactulose and at this time patient's encephalopathy has resolved as well as the asterixis. He has chronic metabolic acidosis secondary to CKD and liver disease. He has chronic hypotension on midodrine. At this point patient is stable to be discharged home with a reminder to not miss any doses of his medications. Liver cirrhosis with chronic anemia/thrombocytopenia. Continue home medications Chronic hypoalbuminemia, secondary to underlying liver disease Time Attestation Discharge Coordination Time (in mins): 30 Quality: Safe Use of Opioids Does Pt have an Active Cancer Diagnosis on the Problem List?: No Quality: Stroke Does the patient have a stroke diagnosis?: No Physical Exam Vital Signs: Vital Signs: Last Vital Signs Temp 98.6 F 01/10/24 07:43 Pulse 69 01/10/24 07:43 Resp 18 01/10/24 07:43 BP 101/57 L 01/10/24 07:43 Pulse Ox 97 01/10/24 07:43 O2 Del Method Room Air 01/10/24 07:43 BMI result Body Mass Index 24.8 Appearing in no acute distress head is normocephalic atraumatic eyes pupils are PERRLA sclera is anicteric mouth throat mucous membranes are intact and moist neck is supple no lymphadenopathy, no JVD noted lung sounds are clear to auscultation heart regular rate rhythm, clear S1, S2 positive bowel sounds, abdomen is soft, nontender neuro patient is alert x3, no focal deficits DS: Data Data Completed and Pending Completed studies during hospitalization [Text1]: Procedures Control Bleeding in Gastrointestinal Tract, Via Natural or Artificial Opening Endoscopic (07/03/23) Destruction of Ascending Colon, Via Natural or Artificial Opening Endoscopic (08/18/23) Destruction of Sigmoid Colon, Via Natural or Artificial Opening Endoscopic (08/18/23) Destruction of Stomach, Pylorus, Via Natural or Artificial Opening Endoscopic (07/03/23) Detoxification Services for Substance Abuse Treatment (05/31/23) Extirpation of Matter from Penis, Open Approach (09/11/22) Inspection of Lower Intestinal Tract, Via Natural or Artificial Opening Endoscopic (07/18/23) Inspection of Upper Intestinal Tract, Via Natural or Artificial Opening Endoscopic (08/18/23) Introduction of Vasopressor into Peripheral Vein, Percutaneous Approach (09/03/23) Resection of Prepuce, External Approach (09/11/22) Transfusion of Nonautologous Platelets into Peripheral Vein, Percutaneous Approach (09/11/22) Transfusion of Nonautologous Red Blood Cells into Peripheral Vein, Percutaneous Approach (08/18/23) Discharge Plan Discharge Anticipated Discharge Date/Time: 01/10/24 08:37 Patient Disposition: Home, Self-Care Discharge Diagnosis: Acute hepatic encephalopathy Referrals: Arin Nelson MD [Primary Care Provider] - 1 Week Discharge Medications: Continued midodrine 5 mg tablet 5 mg PO TID Qty: 30 0RF furosemide 20 mg tablet 20 mg PO DAILY Qty: 90 0RF Xifaxan 550 mg tablet 550 mg PO BID Qty: 180 1RF (DME) Ultra[place] [facility] [place] .Route Qty: 1 0RF Rx Instructions: As directed lidocaine 5 % adhesive patch,medicated 1 patch topical DAILY PRN (Reason: Pain) (DME) walker [facility] [place] Instructions .Route Qty: 1 0RF Rx Instructions: As directed melatonin 5 mg Tablet 10 mg PO BEDTIME PRN (Reason: Insomnia) omeprazole 40 mg capsule,delayed release(DR/EC) 40 mg PO DAILY@0630 trazodone 50 mg tablet 25 mg PO BEDTIME PRN (Reason: Insomnia) vitamin A 3,000 mcg (10,000 unit) capsule 1 cap PO DAILY spironolactone 25 mg Tablet 25 mg PO DAILY Qty: 180 0RF Protocol: Hold for SBP< HOLD for SBP < : 90 lactulose 10 gram/15 mL solution 45 ml PO QID Qty: 946 0RF Rx Instructions: Sister gives @0700, 1000, 1300, 1600 clopidogrel 75 mg Tablet 75 mg PO DAILY aspirin 81 mg Tablet,Delayed Release (Dr/Ec) 81 mg PO DAILY multivitamin Tablet 1 tab PO DAILY Discharge Orders: Discharge Order (Routine); Ordered 01/10/24 Ordered By: Sophie Tejada Diet: Advance to usual diet Activity on Discharge: As tolerated Stand Alone Forms: Patient Portal Discharge page Print Language: Ecuadorean Care Plan Goals: Take all medications as prescribed and do not miss any doses Health Concerns: Acute hepatic encephalopathy Plan of Treatment: Follow-up with primary care provider as needed Assessment: See discharge summary
[2024-01-10] MEDS: Lactulose 20 GM/30 ML SOLUTION 30 GM PO (08:48)
[2024-01-10] MEDS: Aspirin 81 MG TAB.CHEW PO (08:49)
[2024-01-10] MEDS: Clopidogrel Bisulfate 75 MG TABLET PO (08:49)
[2024-01-10] MEDS: rifAXIMin 550 MG TABLET PO (08:49)
[2024-01-10] MEDS: Furosemide 20 MG TABLET PO (08:49)
[2024-01-10] MEDS: Midodrine HCl 5 MG TABLET PO (08:49)
[2024-01-10] MEDS: Spironolactone 25 MG TABLET PO (08:49)
[2024-01-10] MEDS: Multivitamin TABLET 1 TAB PO (08:49)
--- NOTE | 2024-01-10 08:53 | MHC.CM.PN ---
DP: PT HAS BEEN MEDICALLY CLEARED FOR DC HOME, NO SERVICES. SISTER WILL TRANSPORT
== END 2024-01-10 10:16 | disposition home or self-care (01) | DRG 280 ==
LOC: HO.ED 12:35 → HO.EDOVER 13:37 → HO.S3 14:13
PROVIDERS: Physician Assistant; Admitting Provider Physician Assistant Medical; Emergency Provider Emergency Medicine; PCP Internal Medicine; Visit Provider Nurse Practitioner Acute Care
DX: K70.30 Alcoholic cirrhosis of liver without ascites (principal); G92.8 Other toxic encephalopathy; I95.89 Other hypotension; E72.20 Disorder of urea cycle metabolism, unspecified; E87.22 Chronic metabolic acidosis; D63.8 Anemia in other chronic diseases classified elsewhere; E88.09 Other disorders of plasma-protein metabolism, not elsewhere classified; D69.59 Other secondary thrombocytopenia; F10.21 Alcohol dependence, in remission; F19.11 Other psychoactive substance abuse, in remission; N18.9 Chronic kidney disease, unspecified; K76.82 Hepatic encephalopathy; Z20.822 Contact with and (suspected) exposure to COVID-19; Z23 Encounter for immunization; Z98.84 Bariatric surgery status; Z87.891 Personal history of nicotine dependence; Z79.02 Long term (current) use of antithrombotics/antiplatelets; Z79.82 Long term (current) use of aspirin; Z79.899 Other long term (current) drug therapy
CPT/HCPCS: 0241U; 36415; 71045; 80048; 80053; 81003; 82140; 83690; 85025; 85610; 85730; 90656; 97162; 99285

== ENCOUNTER → 2024-01-08 13:28 | Outpatient (BNV) | payer MEDICAID, SELFPAY | PROVIDERS: Admitting Provider Physician Assistant Medical; Emergency Provider Emergency Medicine; PCP Internal Medicine; Visit Provider Physician Assistant Medical | DX: K76.82 Hepatic encephalopathy (principal); E72.20 Disorder of urea cycle metabolism, unspecified | CPT/HCPCS: 99223; 99232; 99238 ==

== ENCOUNTER 2024-02-20 10:46 | Outpatient (AMB) | payer OTHER, SELFPAY ==
--- NOTE | 2024-02-20 10:47 | A.OFFVIS_ITS ---
Vital Signs 02/20/24 10:49 Height 6 ft Weight 198 lb 6.656 oz BMI 26.9 BP 101/62 Blood Pressure Location Lt brachial Position Sitting Pulse 65 Intake Visit Reasons: follow up r/s from 12/20 Intake Note: Jonathon presents in the office as a 5 month follow up. CC: He states that he was telling his VP PATIENT that he feels that the Lower right quadrant feels like it is growing. Propeller Engineer Required: No Allergies No Known Allergies Allergy (Verified 02/20/24 10:52) Medication List - Last Reconciled 02/20/24 by Brenna Mena MD aspirin 81 mg PO DAILY clopidogrel 75 mg PO DAILY furosemide 20 mg PO DAILY lactulose 45 mL PO QID 90 days lidocaine 5% 1 patch topical DAILY PRN melatonin 10 mg PO BEDTIME PRN midodrine 5 mg PO TID multivitamin 1 tab PO DAILY 90 days omeprazole 40 mg PO DAILY@0630 90 days rifaximin 550 mg PO BID spironolactone 25 mg See Protocol PO DAILY 90 days trazodone 25 mg PO BEDTIME PRN walker As directed walker (Ultra-Light Rollator misc) As directed HPI Comments Details: This is a 57-year-old gentleman with past medical history of polysubstance use disorder including alcohol and cocaine, who is here for follow up. Pt was seen in consultation in hospital on 05/31/23 (anemia/GIB) and 06/16/23 (HE). Here accompanied by his sister who is very involved in his care and in fact advocated to move him from [place] (where he was living by himself) to her house in [place]. Main issue is daytime sleepiness with limited night time sleep. Otherwise, reports good energy, trying to keep up with activity levels. Has been eating good - though not restricting salt and red meat as much as he should. No abd pain, N,V, change in bowel habits. Sober from etOH since May 2023. 07/25/23: Comes in for post-hospitalisation follow up. Since May he has had at least 4 hospitalisations mainly for worsening HE. Reports that had not been taking Rifaximin at home but now has with since discharge. Compliant with lactulose. Also underwent [place] most recent hospitalisation as was becoming logistically to coordinate as OP due to his frequent admissions. This was unfortunately poor prep and inadequate for polyp detection, but no mucosal abnormality or large masses were noted. Patient also worsening fatigue, states that is also this time sitting down or recliner. Sister also mentions but he seems more short of breath at rest. Recent echo normal. No hepatohydrothorax on chest x-ray 07/18/2023 08/29/23: Admitted to hospital earlier this month for worsening HE and anemia. s/p EGD and colo - R colon AVMS s/p APC. (Dr Funk) Currently, reports mental status is good. However noted to be more sleepy during the day. This is despite taking lactulose, rifaximin and zinc. Patient and sister confirm at least 3-4 soft/mushy bowel movements every day. Most recent CT abdomen and pelvis suggests possible left-sided splenorenal shunt. Current meds: Lactulose 20ml 4 times a day Rifaximin 550 BID Zinc furosemide 40 once daily Supplemental shakes not covered by his insurance. 09/21/23: Current meds: Zinc sulfate 220 OD Omeprazole 40 OD Vit B-1 100 OD Xifaxan 550 BID Midodrine 5 TID Melatonin PRN Trazodone 25 Qnightly Furosemide 40 once daily tessalon pearls TID x 14 days Lactulose 30ml TID Currently no abd pain, nausea, vomiting. Has appt with IR next week for occlusio n of spontaneous splenorenal shunt to help with recurrent HE leading to multiple hospital admissions. Referral to [facility] transplant hep requested - visit pending. 02/20/24: Here for follow up accompanied by his sister. Has been seen by [facility] transplant Dr Love - undergoing eval for transplantation. Next visit coming up later this month. Last hospitalisation was last month for HE after he missed lactulose for a day but a fairly quick recovery with resumption of lactulose and rifaximin. Due for HCC screening - pt unsure if one of the CT scans was for HCC screening or just pulm eval. Of note - pt also underwent vascular stenting last month and now on DAPT x 3 months. End date Mar 2024. Otherwise, no abd pain, N,V. No increase in abd girth reported by pt. Current meds: ASA 81 Plavix 75 Zinc sulfate 220 OD Omeprazole 40 OD Xifaxan 550 BID Lactulose 30ml TID Midodrine 5 TID Trazodone 25 Qnightly Furosemide 20 once daily Spironolactone 25 once daily PFSH Medical History (Updated 02/20/24 @ 12:55 by Brenna Mena MD) Cirrhosis Portosystemic shunt, spontaneous Anemia Abdominal wall swelling Hyperammonemia Hepatic steatosis Diarrhea resulting from infection of the bowel mucosa Liver lesion Substance use Alcohol use disorder Anemia Chronic kidney disease Alcohol dependence Surgical History (Updated 02/20/24 @ 10:52 by JOSEPHINE Sanford) H/O coil occlusion of patent ductus arteriosus Hx of colonoscopy Hx of esophagogastroduodenoscopy History of urologic surgery H/O varicose vein stripping S/P bariatric surgery Social History Household Members: Family Household Members Other:: sister Housing: Apartment Do you presently have visiting nurse or other home services: No Alcohol intake: former Patient Tobacco Use Status: Former Tobacco user Tobacco use type: Cigarette e-Cigarette/Vaping Use: Never Used Second Hand Smoke Exposure: No Substance Use Type: Crack/Cocaine and Marijuana Advance Directives Date on File: 06/08/23 service: No Current occupational status: employed Review of Systems Const All systems reviewed & are unremarkable except as noted in HPI and below Physical Exam Vital Signs: Last Vital Signs Pulse 65 02/20/24 10:49 BP 101/62 02/20/24 10:49 BMI result Body Mass Index 26.9 NAD Undernourished Bitemporal wasting, non icteric No abd tenderness, A/OX3, (R hand is always unsteady since a work related injury) no asterixis Assessment & Plan Assessment & Plan (1) Decompensated hepatic cirrhosis: Code(s): K72.90 - Hepatic failure, unspecified without coma; K74.60 - Unspecified cirrhosis of liver Category: Medical (2) Acute hepatic encephalopathy: Code(s): K76.82 - Hepatic encephalopathy Category: Medical (3) Shortness of breath: Code(s): R06.02 - Shortness of breath Category: Medical (4) Sarcopenia: Code(s): M62.84 - Sarcopenia Category: Medical Plan MELD-Na 18 Child Wiseman Class B Remains sober from etOH since May 2023. HE events markedly better since embolization of spontaneous splenorenal shunt. Appears to have lost even further muscle mass. Taking 2-3 ensures per week despite insurance coverage. Advised on increasing protein intake with food leslie BCAA. Plan: - Updated MELD labs to be obtained from [facility] (reports having blood work done in the last month) -Cont lactulose for goal 2-3BMs per day. Rifaximin 550 b.i.d. Zinc supplementation. OK to increase lactulose for goal 3-4 BMs for worsening confusion but to call office if persists despite this >1 day. - no large volume ascites on exam today. Continue furosemide 20mg and shellie 25. - Extensive counseling for low salt diet done - sister also advised on the same. - No varices on EGD 08/2023. Next EGD in 2024. - Pt and fam unsure if he had a triple phased CT at [facility]. Will get an US abd through [facility] - will also be helpful for ascites assessment. - Counseled on nutrition including protein intake. Advised to increase protein shakes to at least 1-2/day to make 1.2g/kg protein in a day., Add night time snack. - No NSAIDs. - Will get updated records from [facility] - Repeat colo for asymptomatic CRC screening in 7-10 years. Follow up 3 months Orders: Orders US abdomen complete Today K74.60 - Unspecified cirrhosis of liver Medications: Discontinued rifaximin (Xifaxan) Discontinued Reason: Patient no longer taking 550 mg PO BID 180 tabs 1RF K72.90 - Hepatic failure, unspecified without coma, K74.60 - Unspecified cirrhosis of liver, K76.82 - Hepatic encephalopathy Coding Level of Care Code Est Pt Level 4 (66639) Complex EM visit Add On G2211 Diagnoses Decompensated hepatic cirrhosis K72.90; K74.60 Acute hepatic encephalopathy K76.82 Shortness of breath R06.02 Sarcopenia M62.84
[2024-02-20 10:49] VITALS: BP 101/62; PULSE 65; BMI 26.9
== END 2024-02-20 12:36 | disposition home or self-care (01) ==
LOC: HO.HGI 10:46
PROVIDERS: PCP Internal Medicine; Visit Provider Internal Medicine
DX: K72.90 Hepatic failure, unspecified without coma (principal); K74.60 Unspecified cirrhosis of liver; K76.82 Hepatic encephalopathy; R06.02 Shortness of breath; M62.84 Sarcopenia
CPT/HCPCS: 99214; G2211

== ENCOUNTER → 2024-02-20 10:46 | Outpatient (BNVA) | payer OTHER, SELFPAY | PROVIDERS: PCP Internal Medicine; Visit Provider Internal Medicine | DX: K72.90 Hepatic failure, unspecified without coma (principal); K74.60 Unspecified cirrhosis of liver; K76.82 Hepatic encephalopathy; R06.02 Shortness of breath; M62.84 Sarcopenia | CPT/HCPCS: 99212 ==

== ENCOUNTER 2024-02-28 07:33 | Outpatient (REF) | payer OTHER, SELFPAY | END 2024-02-28 07:34 | disposition home or self-care (01) | LOC: HO.US 07:33 | PROVIDERS: PCP Internal Medicine; Visit Provider Internal Medicine | DX: K74.60 Unspecified cirrhosis of liver (principal) | CPT/HCPCS: 76700 ==